=== PATIENT | male | born 1940 | race Caucasian/White ===

== ENCOUNTER 2020-01-20 16:33 | Outpatient (CLI) | payer MEDICARE, SELFPAY ==
[2020-01-20 17:08] LABS: Estimated Glomerular Filt Rate 49
== END 2020-01-20 16:34 | disposition home or self-care (01) ==
PROVIDERS: PCP Family Medicine; Visit Provider Specialist
DX: I70.1 Atherosclerosis of renal artery (principal)
CPT/HCPCS: 36415; 82565

== ENCOUNTER 2020-07-01 12:11 | Outpatient (CLI) | payer MEDICARE, SELFPAY ==
--- NOTE | ~2020-07-01 | US_ITS ---
US venous doppler LE RT DATE: 07/01/2020 12:46 INDICATION: Right leg pain TECHNIQUE: Real-time and color flow imaging and Doppler analysis of the veins of the right lower extr emity COMPARISON: 06/02/2017 venous duplex examination of both lower extremities FINDINGS: There is spontaneous and phasic flow and normal augmentation and color flow signal and norm al compression of the deep veins of the right leg IMPRESSION: No evidence of deep venous thrombosis of right leg Reviewed, dictated and finalized at [facility]. Reviewed, dictated and finalized at location A.
== END 2020-07-01 12:12 | disposition home or self-care (01) ==
PROVIDERS: PCP Family Medicine; Visit Provider Family Medicine
DX: M79.604 Pain in right leg (principal); M79.89 Other specified soft tissue disorders
CPT/HCPCS: 93971

== ENCOUNTER 2020-07-20 14:23 | Outpatient (CLI) | payer MEDICARE, SELFPAY ==
[2020-07-20 14:55] LABS: Basophils Absolute Auto 0.1 K/mm3 (0.0-0.1); Basophils Percent Auto 0.9 % (0.2-1.2); Eosinophils Absolute Auto 0.2 K/mm3 (0-0.3); Eosinophils Percent Auto 2.1 % (0-4.4); Hematocrit 44.7 % (42.0-52.0); Hemoglobin 14.8 g/dL (14.0-18.0); Immature Granulocyte Absolute 0.11 K/mm3 (0.00-0.031); Immature Granulocyte Percent A 1.3 % (0-0.5); Lymphocytes Absolute Auto 2.62 K/mm3 (0.9-3.2); Lymphocytes Percent Auto 30.1 % (18.3-44.2); Mean Corpuscular HGB Conc 33.1 g/dl (32-36); Mean Corpuscular Hemoglobin 30.1 pg (26-34); Mean Platelet Volume 10.7 fl (7.4-10.4); Monocytes Absolute Auto 0.8 K/mm3 (0.1-0.6); Monocytes Percent Auto 9.6 % (2.6-8.5); Neutrophils Absolute Auto 4.9 K/mm3 (1.3-6.7); Platelet Count Result 283 k/mm3 (150-375); Red Blood Count 4.91 M/mm3 (4.6-6.20); Red Cell Distribution Width 13.4 % (11.5-14.5); White Blood Count 8.7 K/mm3 (4.5-10.0)
== END 2020-07-20 14:24 | disposition home or self-care (01) ==
PROVIDERS: PCP Family Medicine; Visit Provider Family Medicine
DX: L03.90 Cellulitis, unspecified (principal)
CPT/HCPCS: 36415; 85025

== ENCOUNTER 2021-03-01 11:57 | Outpatient (CLI) | payer MEDICARE, SELFPAY ==
[2021-03-01 12:27] LABS: Hematocrit 28.7 % (42.0-52.0); Mean Corpuscular HGB Conc 31.4 g/dl (32-36); Mean Corpuscular Hemoglobin 30.5 pg (26-34); Mean Corpuscular Volume 97.3 fl (80-100); Mean Platelet Volume 10.8 fl (7.4-10.4); Platelet Count Result 247 k/mm3 (150-375); Red Blood Count 2.95 M/mm3 (4.6-6.20); Red Cell Distribution Width 15.9 % (11.5-14.5)
[2021-03-01 12:37] LABS: Alanine Aminotransferase 14 U/L (4-50); Albumin Level 3.7 g/dL (3.5-5.1); Alkaline Phosphatase 56 U/L (38-126); Anion Gap 6 mmol/L (8-16); Aspartate Amino Transferase 22 U/L (17-59); Blood Urea Nitrogen 34 mg/dL (9-20); Calcium 9.4 mg/dL (8.4-10.2); Carbon Dioxide 27 mmol/L (22-30); Chloride 107 mmol/L (98-107); Estimated Glomerular Filt Rate 49; Glucose 124 mg/dL (75-110); Potassium 4.4 mmol/L (3.4-5.0); Sodium 140 mmol/L (137-145)
== END 2021-03-01 11:58 | disposition home or self-care (01) ==
PROVIDERS: PCP Family Medicine; Visit Provider Physician Assistant
DX: K92.1 Melena (principal); R53.1 Weakness
CPT/HCPCS: 36415; 80053; 85027

== ENCOUNTER 2021-03-01 13:22 | Observation (INO) | payer MEDICARE, SELFPAY ==
[2021-03-01] VITALS (8 sets, daily range): BP systolic 135–180; BP diastolic 39–108; PULSE 50–70; RESP 14–20; TEMP 35.9–36.4; O2SAT 96–100; BMI 30.9; BMI 30.8
--- NOTE | ~2021-03-01 | XR_ITS ---
EXAMINATION: XR chest 2V DATE: 03/01/2021 16:39 INDICATION: Anemia TECHNIQUE: PA and lateral views of the chest are obtained. COMPARISON: 06/01/2017 FINDINGS: The lungs are free of acute opacities. There is no pleural effusion or pneumothorax. The ca rdiomediastinal silhouette is normal. There is moderate thoracic spondylosis. There are surgical clip s in the left neck. IMPRESSION: 1. No acute cardiopulmonary abnormality. Reviewed, dictated and finalized at location [facility].
--- NOTE | ~2021-03-01 | US_ITS ---
EXAMINATION: US venous doppler [facility] DATE: 03/03/2021 09:12 INDICATION: Bilateral lower limb swelling TECHNIQUE: Grayscale ultrasound images without and with compression and Doppler ultrasound images of the bilateral lower extremity veins were obtained. COMPARISON: 07/01/2020 FINDINGS: The visualized portions of right common femoral vein, profunda (deep) femoral vein, femoral vein, pop liteal vein, posterior tibial veins, peroneal veins, gastrocnemius vein and greater saphenous vein ou tflow remain patent. The visualized portions of left common femoral vein, profunda femoral vein, femoral vein, popliteal v ein, posterior tibial veins, peroneal veins, gastrocnemius vein and greater saphenous vein outflow ar e patent. IMPRESSION: 1. No deep venous thrombosis in either lower limb. Reviewed, dictated and finalized at location A.
[2021-03-01 14:10] LABS: Basophils Absolute Auto 0.1 K/mm3 (0.0-0.1); Basophils Percent Auto 0.7 % (0.2-1.2); Eosinophils Absolute Auto 0.2 K/mm3 (0-0.3); Eosinophils Percent Auto 2.4 % (0-4.4); Hematocrit 28.8 % (42.0-52.0); Hemoglobin 9.2 g/dL (14.0-18.0); Immature Granulocyte Absolute 0.05 K/mm3 (0.00-0.031); Immature Granulocyte Percent A 0.6 % (0-0.5); Lymphocytes Absolute Auto 2.59 K/mm3 (0.9-3.2); Lymphocytes Percent Auto 29.6 % (18.3-44.2); Mean Corpuscular HGB Conc 31.9 g/dl (32-36); Mean Corpuscular Hemoglobin 30.6 pg (26-34); Mean Corpuscular Volume 95.7 fl (80-100); Mean Platelet Volume 11.5 fl (7.4-10.4); Monocytes Absolute Auto 0.7 K/mm3 (0.1-0.6); Monocytes Percent Auto 7.7 % (2.6-8.5); Neutrophils Absolute Auto 5.2 K/mm3 (1.3-6.7); Platelet Count Result 260 k/mm3 (150-375); Red Blood Count 3.01 M/mm3 (4.6-6.20); Red Cell Distribution Width 15.8 % (11.5-14.5); White Blood Count 8.7 K/mm3 (4.5-10.0)
[2021-03-01 14:21] LABS: Alanine Aminotransferase 15 U/L (4-50); Albumin Level 3.8 g/dL (3.5-5.1); Alkaline Phosphatase 57 U/L (38-126); Anion Gap 8 mmol/L (8-16); Aspartate Amino Transferase 23 U/L (17-59); Bilirubin,Total 1.1 mg/dL (0.2-1.3); Blood Urea Nitrogen 32 mg/dL (9-20); Calcium 9.5 mg/dL (8.4-10.2); Carbon Dioxide 26 mmol/L (22-30); Chloride 107 mmol/L (98-107); Estimated CRCL calculation 37 ml/min; Estimated Glomerular Filt Rate 45; Glucose 119 mg/dL (75-110); Potassium 4.3 mmol/L (3.4-5.0); Sodium 141 mmol/L (137-145)
[2021-03-01 14:30] LABS: INR 1.5; Prothrombin Time 18.7 Seconds (11.1-14.7)
[2021-03-01 14:31] LABS: Partial Thromboplastin Time 35.9 SECONDS (22.3-36.8)
--- NOTE | 2021-03-01 16:23 | ECG_ITS ---
Measurements Intervals [place] Rate: 52 P: HI: 0 QRS: -30 QRSD: 93 T: 89 QT: 412 QTc: 384 Interpretive Statements SINUS BRADYCARDIA BORDERLINE AV CONDUCTION DELAY CANNOT RULE OUT SEPTAL INFARCT, AGE INDETERMINATE BORDERLINE ST-T WAVE ABNORMALITY- LAT/HIGH LAT LEADS ABNORMAL ECG Electronically Signed On 03-01-2021 17:27:01 CDT by Edaurdo Haywood D.O.
[2021-03-01] MEDS: PANTOPRAZOLE SODIUM IV 40 MG VIAL IV PUSH (16:24)
--- NOTE | 2021-03-01 16:27 | ED.RECABL ---
HPI - Recheck/Abnormal Lab/Rx General Chief Complaint: Recheck/Abnormal Lab/Rx Stated Complaint: Low H&H Time Seen by Provider: 03/01/21 15:29 Source: patient and RN notes reviewed Mode of arrival: ambulatory Limitations: no limitations History of Present Illness HPI narrative: This is a 80 year old male with history of CAD s/p stent, colon CA who presents for evaluation of a low hemoglobin. Patient was evaluated by his primary care physician today. He went to see his PCP for increased bilateral leg swelling and weakness. He states when he gets up to walk he feels like his legs given out. He also reports black stools for the past 2 weeks. He takes aspirin 81 mg and plavix for history of heart disease with stents. He was started on Xarelto 2 weeks ago for atrial fibrillation. He was also given IVF for heat stoke 2 weeks ago. Patient denies chest pain or sob. Related Data Home Medications Medication Instructions Recorded Confirmed clonidine HCl 0.2 mg tablet 0.2 mg PO DAILY tablet 09/17/19 03/01/21 aspirin 81 mg tablet,delayed 81 mg PO DAILY 10/16/19 03/01/21 release nebivolol 20 mg tablet 10 mg PO DAILY tablet 06/09/20 03/01/21 rivaroxaban 20 mg tablet 20 mg PO DAILY 02/24/21 03/01/21 Allergies Allergy/AdvReac Type Severity Reaction Status Date / Time No Known Allergies Allergy Verified 03/01/21 18:41 Review of Systems Review of Systems: All systems reviewed & are unremarkable except as noted in HPI and below PMFSH Past Medical History Medical History (Updated 03/01/21 @ 21:53 by Carine Hamilton MD) Carotid artery stenosis CKD (chronic kidney disease) stage 3, GFR 30-59 ml/min GERD (gastroesophageal reflux disease) History of colon cancer History of colorectal cancer History of high cholesterol HTN (hypertension) Surgical History Surgical History (Updated 03/01/21 @ 21:49 by Carine Hamilton MD) History of colon surgery Family History Family History Mother Cerebrovascular accident Family history of coronary artery disease Sibling Family history of coronary artery disease Other Hypertension Other Diabetes mellitus Other Family history of cardiovascular disease Social History Social History (Updated 03/01/21 @ 10:58 by Lavinia Leonard Social History: Smoking packs per day: 2 Smoking cigarettes per day: 40.0 Years smoked: 53 Smoking pack-years: 106.00 Smoking status: Former smoker Tobacco type: cigarettes Second hand tobacco smoke exposure: No Smoking end date: 09/04/00 Alcohol intake: never Substance use: never Substance use type: does not use Gender identity (if verbalized by the patient): Male Spiritual care concerns: No Exam Const: General: no acute distress and alert Orientation/consciousness: patient oriented x3 Eyes: EOM: EOMs intact bilaterally Resp: Effort & Inspection: normal respiratory effort and no retractions Auscultation: clear to auscultation bilaterally Cardio: Rate: regular rate Rhythm: regular rhythm Heart sounds: no murmurs GI: GI Palp: Yes Soft to palpation, No Tenderness to palpation present (GI) and No Guarding due to palpation present (GI) Auscultation: normal bowel sounds Other: guaic positive melanotic stool Skin: General skin exam: normal color Rashes: no rashes Neuro: General: patient oriented x3 and moves all extremities Extrem: General: edema bilateral (leg) Course Reevaluation(s) Reevaluation #1: I Discussed with patient plan to admit for evaluation of GI bleeding. He has been accepted by hospitalist service. Date: 03/01/21 Time: 17:00 Consultations Consultation #1: I Discussed case with DR. Messina who agrees to consult. He recommends starting patient on GOlytely 4 L and npo after midnight. He also request patient be consented for colonoscopy/EGD tomorrow. Date: 03/01/21 Time: 16:27 Vital Signs Vital signs: Vital
--- NOTE | 2021-03-01 16:29 | PC.NURSE ---
Called laboratory and added on labs per Dr Hamilton order.
--- NOTE | 2021-03-01 16:32 | PC.NURSE ---
Pt to XRAY via stretcher.
[2021-03-01 16:57] LABS: NT Pro B Type Natriuretic Pept 357 pg/mL (5-100); Troponin I < 0.012 ng/mL (0.000-0.034)
--- NOTE | 2021-03-01 18:22 | ADMGEN ---
This patient, Enzo Pérez, was admitted to 3 Med Surg Room 312-01 @ 1820. Patient/family oriented to hospital policies and general routines including ID bracelet, bed and alarms, visiting hours, pain management, procedures, bathroom and other care routines, personal items, smoking policy, room service/diet, and visiting hours. Information on how to activate the Rapid Response Team has been discussed. Patient/Family are encouraged to report perceived risks to care and to ask questions if they do not understand what they are told or what they should do.
[2021-03-01] MEDS: PEG (High)/E-LYTE SOLN 4,000 ML BTL 4000 ML PO (18:29)
[2021-03-01 19:09] LABS: Hematocrit 30.7 % (42.0-52.0); Hemoglobin 9.7 g/dL (14.0-18.0)
--- NOTE | 2021-03-01 23:11 | PM.IMHP ---
H&P: HPI History of Present Illness Date/Time: 03/01/21 23:11 Chief Complaint: Dark stools Narrative: This is a 80-year-old male WITH PAST MEDICAL HISTORY SIGNIFICANT FOR HYPERTENSION, DYSLIPIDEMIA, CORONARY ARTERY DISEASE STATUS POST STENTING: PERIPHERAL NEUROPATHY: TYPE 2 DIABETES MELLITUS, ATRIAL FLUTTER STARTED ON RIVAROXABAN. PATIENT PRESENTED TO THE EMERGENCY ROOM AFTER HE WAS SEEN AT THE PRIMARY CARE PHYSICIAN'S OFFICE WHERE HE WAS SEEING DUE TO BILATERAL LOWER EXTREMITY EDEMA. BUT PATIENT STATED THAT HE HAS BEEN HAVING DARK STOOLS EVER SINCE HE WAS STARTED ON THE RIVAROXABAN AND THEN HE WAS SENT TO THE EMERGENCY ROOM. PRELIMINARY WORKUP IS ESSENTIALLY NONREVEALING. PATIENT DENIES ANY SHORTNESS OF BREATH COUGH SPUTUM PRODUCTION NAUSEA VOMITING HEMATEMESIS HEMOPTYSIS BRIGHT RED BLOOD PER RECTUM OR WEIGHT LOSS NO PND NO ORTHOPNEA NO ABDOMINAL. Review of Systems Review of Systems: Narrative: BILATERAL LOWER EXTREMITY SWELLING AND DARK STOOL Constitutional: Constitutional: Denies chills, Denies fatigue, Denies fever(s), Denies malaise, Denies poor appetite, Denies weakness and Denies weight loss Eyes: Eyes: Denies change in vision ENT: Denies nasal congestion, Denies nasal discharge and Denies nasal obstruction Cardiovascular: Cardiovascular: Denies chest pain, Denies irregular heart rhythm, Denies lightheadedness, Denies radiating jaw, neck or arm pain, Denies palpitations, Denies dyspnea and Denies paroxysmal nocturnal dyspnea Respiratory: Respiratory: Denies cough Gastrointestinal: Gastrointestinal: Reports melena, Denies diarrhea, Denies nausea and Denies vomiting Genitourinary: Genitourinary: Reports no additional male genitourinary complaints Musculoskeletal: Musculoskeletal: Reports no additional musculoskeletal complaints Integumentary/Breasts: Skin/Breast: Reports system reviewed and no additional complaints, except as docu Neurologic: Reports system reviewed and no additional complaints, except as documented and Denies focal weakness Psychiatric: Psychiatric: Reports no additional psychiatric complaints Endocrine: Endocrine: Reports no additional endocrine complaints Hematologic/Lymphatic: Hematologic/Lymphatic: Reports no additional hematologic/lymphatic complaints Allergic/Immunologic: Allergic/Immunologic: Reports no additional allergic/immunologic complaints [facility] Past Medical History Medical History (Updated 03/01/21 @ 23:33 by Lotus Mcclelland MD) Carotid artery stenosis CKD (chronic kidney disease) stage 3, GFR 30-59 ml/min GERD (gastroesophageal reflux disease) History of colon cancer History of colorectal cancer History of high cholesterol HTN (hypertension) Surgical History Surgical History (Updated 03/01/21 @ 21:49 by Carine Hamilton MD) History of colon surgery Family History Family History Mother Cerebrovascular accident Family history of coronary artery disease Sibling Family history of coronary artery disease Other Hypertension Other Diabetes mellitus Other Family history of cardiovascular disease Social History Social History (Updated 03/01/21 @ 10:58 by Lavinia Hawkins) Social History: Smoking packs per day: 2 Smoking cigarettes per day: 40.0 Years smoked: 53 Smoking pack-years: 106.00 Smoking status: Former smoker Tobacco type: cigarettes Second hand tobacco smoke exposure: No Smoking end date: 09/04/00 Alcohol intake: never Substance use: never Substance use type: does not use Gender identity (if verbalized by the patient): Male Spiritual care concerns: No Meds Home Medications and Allergies Home Medications Medication Instructions Recorded Confirmed Type clonidine HCl 0.2 mg tablet 0.2 mg PO DAILY tablet 09/17/19 03/01/21 History aspirin 81 mg tablet,delayed 81 mg PO DAILY 10/16/19 03/01/21 History release metformin 500 mg tablet,extended 50
[2021-03-01 23:20] LABS: Hematocrit 30.4 % (42.0-52.0); Hemoglobin 9.5 g/dL (14.0-18.0)
[2021-03-02] VITALS (11 sets, daily range): BP systolic 96–200; BP diastolic 36–74; PULSE 53–81; RESP 16–20; TEMP 36.1–36.9; O2SAT 92–99
[2021-03-02] MEDS: hydrALAZINE HCL 20 MG/ML VIAL 10 MG IV PUSH (04:24)
[2021-03-02 06:27] LABS: Hematocrit 30.9 % (42.0-52.0); Hemoglobin 9.9 g/dL (14.0-18.0)
[2021-03-02] MEDS: NEBIVOLOL HCL 5 MG TABLET 10 MG PO (08:53)
[2021-03-02] MEDS: IRBESARTAN 150 MG TABLET PO (08:55)
[2021-03-02] MEDS: amLODIPine BESYLATE 5 MG TABLET 10 MG PO (08:55)
[2021-03-02] MEDS: hydroCHLOROthiazide 12.5 MG CAPSULE PO (08:56)
[2021-03-02] MEDS: PANTOPRAZOLE SODIUM IV 40 MG VIAL IV PUSH (08:58)
--- NOTE | 2021-03-02 09:35 | WPDGICN ---
Assessment and Plan Assessment and plan (1) GI bleed: Code(s): K92.2 - Gastrointestinal hemorrhage, unspecified Status: Acute Assessment and Plan: Patient with GI bleeding dark melenic stools suggest upper GI blood loss. However patient does have a history of colon cancer with no recent follow-up. Plan is to check both EGD and colonoscopy to assess for recent GI blood loss. Patient hemoglobin will be monitored and transfused if necessary. (2) Atrial fibrillation: Code(s): I48.91 - Unspecified atrial fibrillation Status: Acute (3) Anticoagulated: Code(s): Z79.01 - longterm (current) use of anticoagulants Status: Acute Assessment and Plan: Patient with recent start of Xarelto anticoagulation because of atrial fibrillation. This will need to be held until is certainly safe to continue. With recent GI bleeding raises this concern. (4) History of colon cancer: Code(s): Z85.038 - Personal history of other malignant neoplasm of large intestine Status: Acute Assessment and Plan: Patient has a history of colon cancer and subsequent colon polyps on previous colonoscopies. He has had no recent follow-up. Follow-up colonoscopy at this time because of GI bleeding but also because of his history of colon cancer. GI Consult Note Consult date/time: 03/02/21 09:35 HPI: Enzo Pérez is a 80 year old male Seen in evaluation at the request of the emergency room. Patient has a history of atherosclerotic heart disease for which she has had stents. He has been treated for diabetes, atrial flutter recently on Xarelto. Patient presented to his primary care office yesterday because of pedal edema. He was found to have a low hemoglobin of 9. Previously had been 14. Over the last 4-5 days he has noticed blood in his stools. These are described as dark in nature. He denies any specific abdominal pain. His past history is significant for cardiac stents and atrial fibrillation for which she takes aspirin, Plavix and now Xarelto. He has been on Xarelto for approximately 1-2 weeks. Patient's distant medical history is significant for colon cancer resected 5 years ago. Patient denies any specific follow-up in the intervening time. patient's family history is noncontributory. As stated patient denies abdominal pain. Review of Systems Review of Systems: All systems reviewed & are unremarkable except as noted in HPI and below PMFSH Past Medical History Medical History (Updated 03/02/21 @ 09:38 by Mendoza Messina MD) Carotid artery stenosis CKD (chronic kidney disease) stage 3, GFR 30-59 ml/min GERD (gastroesophageal reflux disease) History of colon cancer History of colorectal cancer History of high cholesterol HTN (hypertension) Surgical History Surgical History (Updated 03/01/21 @ 21:49 by Carine Hamilton MD) History of colon surgery Family History Family History Mother Cerebrovascular accident Family history of coronary artery disease Sibling Family history of coronary artery disease Other Hypertension Other Diabetes mellitus Other Family history of cardiovascular disease Social History Social History (Updated 03/01/21 @ 10:58 by Lavinia Hawkins) Social History: Smoking packs per day: 2 Smoking cigarettes per day: 40.0 Years smoked: 53 Smoking pack-years: 106.00 Smoking status: Former smoker Tobacco type: cigarettes Second hand tobacco smoke exposure: No Smoking end date: 09/04/00 Alcohol intake: never Substance use: never Substance use type: does not use Gender identity (if verbalized by the patient): Male Spiritual care concerns: No Meds Home Medications and Allergies Home Medications Medication Instructions Recorded Confirmed Type clonidine HCl 0.2 mg tablet 0.2 mg PO DAILY tablet 09/17/19 03/01/21 History aspirin 81 mg tablet,
[2021-03-02 10:03] LABS: Glucose Point of Care 141 mg/dl (65-105)
[2021-03-02] MEDS: LACTATED RINGERS 1,000 ML 150 ML IV CONT (10:12)
--- NOTE | 2021-03-02 10:37 | WPDANESEPPF ---
Anes - Initial Pre Proc Eval Procedure: Operation Date: 03/02/21 10:30 Proposed Procedures p Esophagogastroduodenoscopy & Colonoscopy - Mendoza Messina MD Date/Time: 03/02/21 10:37 Surgeon: DANNI Bhandari Pre Op Diagnosis: upper GI bleeding/ anemia Patient Data Age: 80 Gender: M Height: 1.66 m Weight: 85.4 kg Last Vital Signs Temp 98.4 F 03/02/21 10:10 Pulse 81 03/02/21 10:10 Resp 20 03/02/21 10:10 BP 188/57 H 03/02/21 10:10 Pulse Ox 99 03/02/21 10:10 Allergies Allergy/AdvReac Type Severity Reaction Status Date / Time No Known Allergies Allergy Verified 03/02/21 10:04 Home Medications Medication Instructions Recorded Confirmed Type clonidine HCl 0.2 mg tablet 0.2 mg PO DAILY tablet 09/17/19 03/01/21 History aspirin 81 mg tablet,delayed 81 mg PO DAILY 10/16/19 03/01/21 History release metformin 500 mg tablet,extended 500 mg PO DAILY #90 tablet 11/11/19 03/01/21 Rx release 24 hr nebivolol 20 mg tablet 10 mg PO DAILY tablet 06/09/20 03/01/21 History blood sugar diagnostic #100 ea 09/14/20 03/01/21 Rx blood-glucose meter #1 ea 09/14/20 03/01/21 Rx lancets #200 ea 09/14/20 03/01/21 Rx amlodipine 10 mg tablet See Rx Instructions .ROUTE 09/28/20 03/01/21 Rx .COMPLEX #90 tablet pantoprazole 40 mg tablet,delayed 40 mg PO QAM #90 tablet 09/28/20 03/01/21 Rx release irbesartan 150 mg tablet 150 mg PO DAILY #90 tablet 10/05/20 03/01/21 Rx atorvastatin 40 mg tablet 40 mg PO DAILY #90 tablet 11/09/20 03/01/21 Rx tamsulosin 0.4 mg capsule 0.4 mg PO DAILY #90 cap 12/07/20 03/01/21 Rx hydrochlorothiazide 12.5 mg capsule See Rx Instructions .ROUTE 01/20/21 03/01/21 Rx .COMPLEX #90 cap gabapentin 300 mg capsule 300 mg PO TID #90 cap 01/29/21 03/01/21 Rx lorazepam 1 mg tablet 0.5 mg PO BID PRN #60 tablet 02/16/21 03/01/21 Rx rivaroxaban 20 mg tablet 20 mg PO DAILY 02/24/21 03/01/21 History Laboratory Tests 03/01/21 03/01/21 03/01/21 13:55 13:57 13:57 WBC 8.7 K/mm3 K/mm3 (4.5-10.0) RBC 3.01 M/mm3 L M/mm3 (4.6-6.20) Hgb 9.2 g/dL L g/dL (14.0-18.0) Hct 28.8 % L % (42.0-52.0) MCV 95.7 fl fl (80-100) MCH 30.6 pg pg (26-34) MCHC 31.9 g/dl L g/dl (32-36) RDW 15.8 % H % (11.5-14.5) Plt Count 260 k/mm3 k/mm3 (150-375) MPV 11.5 fl H fl (7.4-10.4) Immature Gran % (Auto) 0.6 % H % (0-0.5) Neut % (Auto) 59.0 % % (45.5-73.1) Lymph % (Auto) 29.6 % % (18.3-44.2) [place] % (Auto) 7.7 % % (2.6-8.5) Eos % (Auto) 2.4 % % (0-4.4) Baso % (Auto) 0.7 % % (0.2-1.2) Lymph # (Auto) 2.59 K/mm3 K/mm3 (0.9-3.2) [place] # (Auto) 0.7 K/mm3 H K/mm3 (0.1-0.6) Eos # (Auto) 0.2 K/mm3 K/mm3 (0-0.3) Baso # (Auto) 0.1 K/mm3 K/mm3 (0.0-0.1) Abs Immat Gran (auto) 0.05 K/mm3 H K/mm3 (0.00-0.031) Absolute Neuts (auto) 5.2 K/mm3 K/mm3 (1.3-6.7) Absolute Nucleated RBC 0.0 K/mm3 K/mm3 (0.0-0.012) Nucleated RBC % 0.0 % % (0.0-0.2) PT 18.7 Seconds H Seconds (11.1-14.7) INR 1.5 APTT 35.9 SECONDS SECONDS (22.3-36.8) Sodium Potassium Chloride Carbon Dioxide Anion Gap BUN Creatinine Estim Creat Clear Calc Estimated GFR Glucose POC Capillary Glucose Calcium Total Bilirubin AST ALT Alkaline Phosphatase Troponin I < 0.012 ng/mL ng/mL (0.000-0.034) NT-Pro-B Natriuret Pep 357 pg/mL H pg/mL (5-100) Total Protein Albumin Blood Type Antibody Screen 03/01/21 03/01/21 03/01/21 13:57 13:57 18:52 WBC RBC Hgb 9.7 g/d
[2021-03-02] MEDS: BENZOCAINE (*SP) 60 ML SPRAY CAN (HURRICAINE) 1 SPRAY MUCOUS MEM (10:55)
[2021-03-02] MEDS: SIMETHICONE ORAL SUSPENSION 20 MG/0.3 ML 30 ML BOTTLE 0.6 ML PO (11:13)
[2021-03-02] MEDS: TAMSULOSIN HCL 0.4 MG CAPSULE PO (11:51)
[2021-03-02] MEDS: GABAPENTIN 300 MG CAPSULE PO ×2 (12:55→16:46)
[2021-03-02] MEDS: ATORVASTATIN 40 MG TABLET PO (12:56)
[2021-03-02 13:16] LABS: Hematocrit 31.7 % (42.0-52.0); Hemoglobin 10.2 g/dL (14.0-18.0)
[2021-03-02 17:57] LABS: Glucose Point of Care 96 mg/dl (65-105)
--- NOTE | 2021-03-02 18:09 | P.PNIM_ITS ---
Progress Note: A&P Assessment and Plan (1) Acute upper gastrointestinal bleeding: Code(s): K92.2 - Gastrointestinal hemorrhage, unspecified Status: Acute Assessment and Plan: * Patient described dark melanotic stools after starting Xarelto for his A fib last week. Hgb in 9s compared to 14 last year. 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 Start pantoprazole once daily. Colonoscopy mostly unremarkable with 1 polyp excised; history of right colectomy due to colon cancer in the past. * Hold xarelto 1 to 2 weeks per GI recommendations. * Monitor H&H overnight, advance diet. Anticipate discharge tomorrow if Hgb stable. (2) Gastro-esophageal reflux disease without esophagitis: Code(s): K21.9 - Gastro-esophageal reflux disease without esophagitis Status: Chronic Assessment and Plan: * PPI. (3) Atrial flutter: Code(s): I48.92 - Unspecified atrial flutter Status: Chronic Assessment and Plan: * In sinus rhythm now. Continue bystolic. Xarelto held due to active GI bleedi ng. (4) HTN (hypertension): Code(s): I10 - Essential (primary) hypertension Status: Chronic Assessment and Plan: * BPs significantly elevated this morning since his home medications were withheld. BP much improved after resuming his medications. * Question if amlodipine is contributing to leg swelling? Try holding tomorrow depending on his BP. He is on several anti-hypertensives, continue them to include HCTZ, irbesartan, clonidine. * Monitor BP and adjust treatment as needed. (5) Type 2 diabetes mellitus with other circulatory complications: Code(s): E11.59 - Type 2 diabetes mellitus with other circulatory complications Status: Chronic Assessment and Plan: * Home metformin held. Continue to monitor with accu-cheks and adjust treatment as needed, cover with SSI. (6) CAD (coronary artery disease): Code(s): I25.10 - Atherosclerotic heart disease of [place] coronary artery without angina pectoris Status: Chronic Assessment and Plan: * Stable, no chest pain. ASA held due to GI bleeding. * Taken off Plavix by cardiology last week in light of starting Xarelto. (7) CKD (chronic kidney disease) stage 3, GFR 30-59 ml/min: Code(s): N18.3 - Chronic kidney disease, stage 3 (moderate) Status: Chronic Assessment and Plan: * Renal function appear near his baseline. Euvolemic. Monitor renal function and urine output. (8) LOPEZ (obstructive sleep apnea): Code(s): G47.33 - Obstructive sleep apnea (adult) (pediatric) Status: Chronic Assessment and Plan: * Patient does not use CPAP. (9) Leg swelling: Code(s): M79.89 - Other specified soft tissue disorders Status: Acute Assessment and Plan: * Patient noted NADIYA leg swelling over the last few days. He did recently receive IV fluids during an ED visit for treatment of heat exhaustion. * Ordered LE dopplers. DVT less likely since he has been on anticoagulation. * Encouraged him to elevate his legs. Swelling improved today. Subjective Date/time seen: 03/02/21 1630 Interval history: Mr. Pérez is a very pleasant 80yo M
--- NOTE | 2021-03-02 18:09 | PM.IMPN ---
Progress Note: A&P Assessment and Plan (1) Acute upper gastrointestinal bleeding: Code(s): K92.2 - Gastrointestinal hemorrhage, unspecified Status: Acute Assessment and Plan: Patient described dark melanotic stools after starting Xarelto for his A fib last week. Hgb in 9s compared to 14 last year. One actively bleeding AVM identified in the duodenum, cauterized. Start pantoprazole once daily. Colonoscopy mostly unremarkable with 1 polyp excised; history of right colectomy due to colon cancer in the past. Hold xarelto 1 to 2 weeks per GI recommendations. Monitor H&H overnight, advance diet. Anticipate discharge tomorrow if Hgb stable. (2) Gastro-esophageal reflux disease without esophagitis: Code(s): K21.9 - Gastro-esophageal reflux disease without esophagitis Status: Chronic Assessment and Plan: PPI. (3) Atrial flutter: Code(s): I48.92 - Unspecified atrial flutter Status: Chronic Assessment and Plan: In sinus rhythm now. Continue bystolic. Xarelto held due to active GI bleeding. (4) HTN (hypertension): Code(s): I10 - Essential (primary) hypertension Status: Chronic Assessment and Plan: BPs significantly elevated this morning since his home medications were withheld. BP much improved after resuming his medications. Question if amlodipine is contributing to leg swelling? Try holding tomorrow depending on his BP. He is on several anti-hypertensives, continue them to include HCTZ, irbesartan, clonidine. Monitor BP and adjust treatment as needed. 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 Continue to monitor with accu-cheks and adjust treatment as needed, cover with SSI. (6) CAD (coronary artery disease): Code(s): I25.10 - Atherosclerotic heart disease of [place] coronary artery without angina pectoris Status: Chronic Assessment and Plan: Stable, no chest pain. ASA held due to GI bleeding. Taken off Plavix by cardiology last week in light of starting Xarelto. (7) CKD (chronic kidney disease) stage 3, GFR 30-59 ml/min: Code(s): N18.3 - Chronic kidney disease, stage 3 (moderate) Status: Chronic Assessment and Plan: Renal function appear near his baseline. Euvolemic. Monitor renal function and urine output. (8) LOPEZ (obstructive sleep apnea): Code(s): G47.33 - Obstructive sleep apnea (adult) (pediatric) Status: Chronic Assessment and Plan: Patient does not use CPAP. (9) Leg swelling: Code(s): M79.89 - Other specified soft tissue disorders Status: Acute Assessment and Plan: Patient noted NADIYA leg swelling over the last few days. He did recently receive IV fluids during an ED visit for treatment of heat exhaustion. Ordered LE dopplers. DVT less likely since he has been on anticoagulation. Encouraged him to elevate his legs. Swelling improved today. Subjective Date/time seen: 03/02/21 1630 Interval history: Mr. Pérez is a very pleasant 80yo M admitted with GI bleed. He presented to his PCP office for NADIYA lower leg swelling, noted he had been having dark stools since starting Xarelto last week, noted to have a drop in Hgb and was sent to ED. He reports his leg swelling started a few days ago and has been causing some numbness/tingling to NADIYA feet, making them feel asleep when he stands up. He says his leg swelling is improv
[2021-03-02 21:36] LABS: Glucose Point of Care 135 mg/dl (65-105)
[2021-03-03 05:33] VITALS: BP 173/58; PULSE 69; RESP 18; TEMP 36.4; O2SAT 94
[2021-03-03 06:18] LABS: Hematocrit 30.8 % (42.0-52.0); Hemoglobin 9.7 g/dL (14.0-18.0)
[2021-03-03 06:30] LABS: Anion Gap 10 mmol/L (8-16); Blood Urea Nitrogen 18 mg/dL (9-20); Calcium 9.2 mg/dL (8.4-10.2); Carbon Dioxide 27 mmol/L (22-30); Chloride 107 mmol/L (98-107); Estimated CRCL calculation 43 ml/min; Estimated Glomerular Filt Rate 53; Glucose 119 mg/dL (75-110); Potassium 3.9 mmol/L (3.4-5.0); Sodium 144 mmol/L (137-145)
--- NOTE | 2021-03-03 07:40 | WPDANESPN ---
Anes - Prog Note Post-Op Date/Time: 03/03/21 07:40 Cardiovascular status: normal Respiratory status: normal Airway patency: baseline Mental status: baseline Post-Op hydration status: normal Vital Signs: Last Vital Signs Temp 36.4 C L 03/03/21 05:33 Pulse 69 03/03/21 05:33 Resp 18 03/03/21 05:33 BP 173/58 H 03/03/21 05:33 Pulse Ox 94 03/03/21 05:33 Pain Score (VAS): 1 I/O: Intake & Output 03/02/21 03/02/21 03/03/21 15:59 23:59 07:59 Intake Total 320 390 250 Balance 320 390 250 Laboratory Tests 03/03/21 06:02 03/03/21 06:02 03/02/21 03/02/21 03/02/21 09:56 12:53 17:53 Hgb 10.2 L Hct 31.7 L Sodium Potassium Chloride Carbon Dioxide Anion Gap BUN Creatinine Estim Creat Clear Calc Estimated GFR Glucose POC Capillary Glucose 141 H 96 Hemoglobin A1c Calcium Magnesium 03/02/21 03/03/21 03/03/21 20:22 06:02 06:02 Hgb 9.7 L Hct 30.8 L Sodium 144 Potassium 3.9 Chloride 107 Carbon Dioxide 27 Anion Gap 10 BUN 18 D Creatinine 1.30 Estim Creat Clear Calc 43 Estimated GFR 53 L Glucose 119 H POC Capillary Glucose 135 H Hemoglobin A1c Calcium 9.2 Magnesium 2.0 03/03/21 06:02 Hgb Hct Sodium Potassium Chloride Carbon Dioxide Anion Gap BUN Creatinine Estim Creat Clear Calc Estimated GFR Glucose POC Capillary Glucose Hemoglobin A1c Pending Calcium Magnesium Post-procedural complaints: none Patient Feedback: Patient satisfied with anesthetic care.
[2021-03-03 08:18] LABS: Glucose Point of Care < 20 mg/dl (65-105)
[2021-03-03 08:18] LABS: Glucose Point of Care 136 mg/dl (65-105)
--- NOTE | 2021-03-03 08:41 | PM.DS ---
DS: Admitting Diagnosis Admitting Diagnosis Admitting Diagnosis: GI bleed DS: Discharge Diagnosis Discharge Diagnosis (1) Acute upper gastrointestinal bleeding: Code(s): K92.2 - Gastrointestinal hemorrhage, unspecified Status: Acute Assessment and Plan: Date of Admission 03/01/21 Date of Discharge 03/03/21 Mr. Pérez is a very pleasant 80yo M with history of coronary artery disease, carotid stenosis, paroxysmal atrial flutter, hypertension, non insulin dependent type 2 DM, chronic kidney disease who presented to the ED at the request of his PCP for evaluation of melanotic stool. He presented to PCP office day of arrival for evaluation of bilateral leg swelling and happened to mention he had noticed dark black color to his bowel movements after the last several days after being started on Xarelto last week for paroxysmal atrial flutter. PA at primary care ordered lab work that showed a marked decline in his hemoglobin compared to previous labs and suggested he come to ED. Hgb in 9s on arrival compared to 14 last year. He was evaluated by GI and underwent EGD/colonoscopy by Dr Messina 03/02/21. One actively bleeding AVM identified in the duodenum, cauterized. Start pantoprazole once daily. Colonoscopy mostly unremarkable with 1 polyp excised; history of right colectomy due to colon cancer in the past. His Xarelto is held. Dr Messina recommends holding Xarelto for several weeks. He is encouraged to follow up with his marketing research coordinator, Dr Garcia, as well. His diet was gradually advanced which he tolerated well and his Hgb remained stable, 9.7 day of discharge. His leg swelling is almost completely resolved and my have been related to IV fluids he was given during a recent ED visit at [facility] where he was treated for heat exhaustion. Venous dopplers show no evidence of DVT in either leg. He is encouraged to monitor for any more swelling and keep is legs elevated when sitting. He attributes to his recent difficulty ambulating to the leg swelling which was causing some mild numbness/tingling which is improved today. He is walking in the room without difficulty. He is feeling well and is hemodynamically stable for discharge with instructions to follow up with PCP, cardiology, GI. (2) Gastro-esophageal reflux disease without esophagitis: Code(s): K21.9 - Gastro-esophageal reflux disease without esophagitis Status: Chronic Assessment and Plan: PPI. (3) Atrial flutter: Code(s): I48.92 - Unspecified atrial flutter Status: Chronic Assessment and Plan: In sinus rhythm now. Continue bystolic. Xarelto held due to active GI bleeding. (4) HTN (hypertension): Code(s): I10 - Essential (primary) hypertension Status: Chronic Assessment and Plan: He is on several anti-hypertensives, continue them to include amlodipine, HCTZ, irbesartan, clonidine. Consider if amlodipine could be contributing to leg swelling if his leg swelling returns or persists. BPs elevated day prior to discharge since his meds were held/NPO. Blood pressures improved once his medications were resumed. (5) Type 2 diabetes mellitus with other circulatory complications: Code(s): E11.59 - Type 2 diabetes mellitus with other circulatory complications Status: Chronic Assessment and Plan: Stable, A1c 5.9%. His metformin was held but resumed at discharge. (6) CAD (coronary artery disease): Code(s): I25.10 - Atherosclerotic heart disease of [place] coronary artery without angina pectoris Status: Chronic Assessment and Plan: Stable, no chest pain. Taken off Plavix by cardiology last week in light of starting Xarelto. Follow up with Dr Garcia. (7)
--- NOTE | 2021-03-03 08:58 | WPDGIPROGNO ---
Progress Note: A&P Assessment and Plan (1) AVM (arteriovenous malformation): Code(s): Q27.30 - Arteriovenous malformation, site unspecified Status: Acute Assessment and Plan: Actively bleeding AVM in the duodenum was cauterized yesterday. No evidence for additional bleeding. There is the possibility of additional AVMs distal in the small bowel. Plan to monitor CBC after discharge. I would hold anticoagulation for several weeks. (2) Atrial fibrillation: Code(s): I48.91 - Unspecified atrial fibrillation Status: Acute Assessment and Plan: Anticoagulation on hold because of recent bleeding. Restart if absolutely necessary. There is a risk of bleeding if he has additional AVMs. (3) Anemia: Code(s): D64.9 - Anemia, unspecified Status: Acute Assessment and Plan: Blood loss anemia. Hemoglobin now stable. Suggest follow-up CBC after discharge. Hopefully patient can be discharged today. (4) History of colon cancer: Code(s): Z85.038 - Personal history of other malignant neoplasm of large intestine Status: Acute Assessment and Plan: Distant history of colon cancer. No evidence of polyps by endoscopy yesterday. Plan follow-up colonoscopy in 3-5 years. Subjective Date/time seen: 03/03/21 08:58 Patient comfortable today. No additional bleeding reported. Tolerating diet without difficulty. Anxious to go home. Review of Systems Review of Systems: All systems reviewed & are unremarkable except as noted in HPI and below Exam Narrative: Exam Narrative: Physical exam reveals patient be alert. Comfortable at rest. Vital signs stable. HEENT exam unremarkable. Patient is anicteric. Lungs are clear to auscultation and percussion. Heart is without murmur or extra sounds Irregularly irregular.. Abdomen is soft nontender. Objective Data Vital Signs Vital Signs: Vital Signs - 24 hr 03/02/21 10:10 03/02/21 11:27 03/02/21 11:37 Temperature 98.4 F Pulse Rate 81 53 L 55 L Respiratory Rate 20 16 16 Blood Pressure 188/57 H 96/53 L 121/36 L Pulse Oximetry 99 96 97 03/02/21 11:47 03/02/21 14:00 03/02/21 18:45 Temperature 97.8 F Pulse Rate 53 L 67 Respiratory Rate 17 20 Blood Pressure 141/46 H 158/55 H 175/54 H Pulse Oximetry 97 97 03/02/21 20:25 03/02/21 22:00 03/03/21 05:33 Temperature 97.0 F L 97.5 F L Pulse Rate 61 61 69 Respiratory Rate 18 18 18 Blood Pressure 153/50 H 173/58 H Pulse Oximetry 93 93 94 Intake/Output Intake/Output: Intake & Output 02/28/21 03/01/21 03/02/21 03/03/21 23:59 23:59 23:59 23:59 Intake Total 710 250 Balance 710 250 Meds/Results Medications: Active Medications Generic Name Dose Route Start Last Admin Trade Name Freq PRN Reason Stop Dose Admin Amlodipine Besylate 10 mg 03/02/21 09:00 03/02/21 08:55 Amlodipine Besylate 5 Mg Tablet PO 10 mg DAILY CHAPARRO Administration Atorvastatin Calcium 40 mg 03/02/21 09:00 03/02/21 12:56 Atorvastatin 40 Mg Tablet PO 40 mg DAILY CHAPARRO Administration Clonidine HCl 0.2 mg 03/02/21 09:00 Clonidine Hcl 0.2 Mg Tablet PO DAILY CHAPARRO Dextrose 12.5 gm 03/02/21 18:07 Dextrose 50% 25 Gm/50 Ml Syringe IV PUSH PRN PRN Hypoglycemia Protocol Gabapentin 300 mg 03/02/21 09:00 03/02/21 16:46 Gabapentin 300 Mg Capsule PO 300 mg TID CHAPARRO Administration Glucagon 1 mg 03/02/21 18:07 Glucagon For Inj 1 Mg Vial IM PRN PRN Hypoglycemia Protocol Glucose 15 gm 03/02/21 18:07 Glucose Oral Gel 15 Gm Of Glucse In 37.5 Gm Tube PO PRN PRN Hypoglycemia Protocol Hydralazine HCl 10 mg 03/02/21 03:49 03/02/21 04:24 Hydralazine Hcl 20 Mg/Ml Vial IV PUSH 10 mg Q8H PRN Administration Blood Pressure - High Hydrochlorothiazide 12.5 mg 03/02/21 09:00 03/02/21 08:56 Hydrochlorothiazide 12.5 Mg Capsule PO 12.5 mg DAILY CHAPARRO Administration Dextr
[2021-03-03] MEDS: GABAPENTIN 300 MG CAPSULE PO (09:19)
[2021-03-03] MEDS: PANTOPRAZOLE 40 MG TABLET PO (09:19)
[2021-03-03] MEDS: TAMSULOSIN HCL 0.4 MG CAPSULE PO (09:19)
[2021-03-03 09:20] VITALS: PULSE 80
[2021-03-03] MEDS: IRBESARTAN 150 MG TABLET PO (09:20)
[2021-03-03] MEDS: hydroCHLOROthiazide 12.5 MG CAPSULE PO (09:20)
[2021-03-03] MEDS: NEBIVOLOL HCL 5 MG TABLET 10 MG PO (09:20)
[2021-03-03] MEDS: ATORVASTATIN 40 MG TABLET PO (09:20)
[2021-03-03 10:11] VITALS: O2SAT 93
[2021-03-03 10:42] LABS: Hemoglobin A1C 5.9 % (<5.7)
[2021-03-03 12:18] LABS: Glucose Point of Care 108 mg/dl (65-105)
== END 2021-03-03 12:45 | disposition home or self-care (01) ==
LOC: ANHED 15:39 → ANH3MEDSUR 17:34
PROVIDERS: Emergency Medicine; Internal Medicine Gastroenterology; Physician Assistant; Admitting Provider Emergency Medicine; Emergency Provider General Practice; PCP Family Medicine; Visit Provider Internal Medicine
PROC: 0DJ08ZZ Inspection of Upper Intestinal Tract, Via Natural or Artificial Opening Endoscopic (ICD-10-PCS; CPT 43235; principal; 2021-03-02 10:30)
DX: K92.2 Gastrointestinal hemorrhage, unspecified (principal); Q27.33 Arteriovenous malformation of digestive system vessel; D12.5 Benign neoplasm of sigmoid colon; K92.1 Melena; K63.89 Other specified diseases of intestine; K21.9 Gastro-esophageal reflux disease without esophagitis; M79.89 Other specified soft tissue disorders; E78.5 Hyperlipidemia, unspecified; E11.42 Type 2 diabetes mellitus with diabetic polyneuropathy; E11.51 Type 2 diabetes mellitus with diabetic peripheral angiopathy without gangrene; E11.22 Type 2 diabetes mellitus with diabetic chronic kidney disease; G47.33 Obstructive sleep apnea (adult) (pediatric); I48.91 Unspecified atrial fibrillation; I25.10 Atherosclerotic heart disease of native coronary artery without angina pectoris; I13.10 Hypertensive heart and chronic kidney disease without heart failure, with stage 1 through stage 4 chronic kidney disease, or unspecified chronic kidney disease; N18.30 Chronic kidney disease, stage 3 unspecified; R60.0 Localized edema; Z87.891 Personal history of nicotine dependence; Z85.038 Personal history of other malignant neoplasm of large intestine; Z95.5 Presence of coronary angioplasty implant and graft; Z79.02 Long term (current) use of antithrombotics/antiplatelets; Z79.84 Long term (current) use of oral hypoglycemic drugs
CPT/HCPCS: 45385; 43255; 36415; 71046; 80048; 80053; 82948; 83036; 83735; 83880; 84484; 85014; 85018; 85025; 85027; 85610; 85730; 86850; 86900; 86901; 88305; 93005; 93970; 96361; 96374; 96375; 96376; 97161; 97165; 99285; A9270; C9113; G0378; J0360; J2370; J2704; J7120

== ENCOUNTER 2021-03-04 15:32 | Observation (INO) | payer MEDICARE, SELFPAY ==
[2021-03-04] VITALS (15 sets, daily range): BP systolic 114–154; BP diastolic 41–53; PULSE 49–81; RESP 12–25; TEMP 35.7; O2SAT 92–98; BMI 30.4
--- NOTE | ~2021-03-04 | CT_ITS ---
EXAMINATION: CT brain wo con EXAM DATE: 03/04/2021 15:50 INDICATION: Left arm and tongue paresthesia. TECHNIQUE: Spiral CT of the head was performed without contrast. Axial, coronal and sagittal images were reviewed. The dose-length product (DLP) for this examination was 605.33 mGy-cm. The exposure w as tailored according to patient size, and iterative reconstruction (ASIR) was used as additional dos e reduction technique. Comparison is made to prior examination from 09/29/2016. 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 Punctate old right cauda te head lacunar infarction. There is no acute intraparenchymal hemorrhage. No evidence of intraparen chymal brain mass lesion. No evidence of acute infarction. Please note that initial head CT has martin ited sensitivity for small or acute infarctions. There is periventricular and subcortical hypodensity , nonspecific but probably related to small vessel ischemic disease. There is prominence of the sul ci and ventricles related to cerebral atrophy. There is intracranial carotid arteriosclerosis. The re are no extra-axial collections. There is no mass effect or midline shift. The orbits are unremar kable. Soft tissue is unremarkable. The visualized sinuses and mastoid air cells are well aerated. IMPRESSION: 1. Small old infarctions. 2. Chronic age related findings. Reviewed, dictated and finalized at location A.
--- NOTE | ~2021-03-04 | CT_ITS ---
EXAMINATION: CT brain wo con INDICATION: Sudden onset tremors COMPARISON: 03/05/2021 TECHNIQUE: Standard unenhanced head CT. The dose-length product (DLP) was 605.33 mGy-cm. The mA was a djusted according to patient size. Iterative reconstruction technique was employed. FINDINGS: There is no acute intraparenchymal hemorrhage. No evidence of mass lesion. No evidence of a cute infarction. Again noted are old infarcts of the right caudate and left cerebellum There is mild periventricular and subcortical hypodensity probably related to small vessel ischemic disease. There is mild prominence of the sulci and ventricles related to cerebral atrophy. Intracranial calcified ce rebral atherosclerosis is noted. There are no extra-axial collections. There is no mass effect or mid line shift. Changes in the globes are likely from ocular lens surgery. The visualized sinuses and mas toid air cells are well aerated. IMPRESSION: 1. Areas of prior infarction without acute intracranial abnormality. 2. Age related findings. Reviewed, dictated and finalized at location A.
--- NOTE | ~2021-03-04 | US_ITS ---
EXAMINATION: US carotid duplex BI DATE: 03/05/2021 13:44 INDICATION: Infarcts in right caudate nucleus and left cerebellum. TECHNIQUE: Grayscale, color Doppler, and pulsed Doppler images of the cervical carotid arteries were obtained. The degree of vessel stenosis is placed in one of the following categories: normal, <50%, 5 0-69%, >=70% but less than near-occlusion, near-occlusion, or total occlusion. Note that percent sten osis relative to normal distal artery lumen diameter is indirectly measured from velocity measurement s as described by Edgar, et al. Radiology 2003; 229:340-346. COMPARISON: Ultrasound 09/28/2016 FINDINGS: RIGHT: The right common carotid artery (CCA) peak systolic velocity (PSV) is 49 cm/s. The right internal car otid artery (ICA) PSV is 133 cm/s. The right ICA end-diastolic velocity (EDV) is 41 cm/s. The right I CA/CCA PSV ratio is 2.8. Grayscale and color Doppler images yield an estimate of <50% diameter reduct ion from plaque in the ICA. There is antegrade flow in the right vertebral artery. LEFT: The left CCA PSV is 73 cm/s. The left ICA PSV is 95 cm/s. The left ICA EDV is 27 cm/s. The left ICA/C CA PSV ratio is 1.3. Grayscale and color Doppler images yield an estimate of <50% diameter reduction from plaque in the ICA. There is antegrade flow in the left vertebral artery. IMPRESSION: 1. <50% stenosis in the right internal carotid artery. 2. <50% stenosis in the left internal carotid artery. Reviewed, dictated and finalized at location A.
--- NOTE | ~2021-03-04 | MR_ITS ---
EXAMINATION: MR brain/brain stem wo/w con DATE: 03/05/2021 12:54 INDICATION: Numbness and tingling of the left hand. TECHNIQUE: Magnetic resonance imaging (MRI) of the brain and brainstem was performed without and with 15 mL MultiHance intravenous contrast. Sequences included sagittal and axial T1-weighted FSE, axial diffusion-weighted FS EPI, axial T2*-weighted GRE, axial T2-weighted FLAIR Propeller, and axial T2-we ighted Propeller. Postcontrast sequences included axial and coronal T1-weighted FSE. Apparent diffusi on coefficient (ADC) maps were created. COMPARISON: Brain MRI 09/28/2016, head CT 03/04/2021 FINDINGS: There are old infarcts in the left cerebellum and right caudate nucleus. There is no intrac ranial hemorrhage, acute infarction, or abnormal intracranial mass lesion. The ventricles are normal in size. There is mild mucosal thickening in the paranasal sinuses. There are likely changes of ocula r lens replacement surgeries. The mastoid air cells are normal. IMPRESSION: 1. 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 Reviewed, dictated and finalized at location A.
--- NOTE | ~2021-03-04 | XR_ITS ---
EXAMINATION: XR lumbar spine 6V w bending EXAM DATE: 03/06/2021 17:02 INDICATION: Leg weakness, worse with bending, syncope, fall. TECHNIQUE: Lumber spine frontal, lateral, bilateral oblique projections. Coned down frontal and lat eral L5-S1 lumbar projections for interpretation. Additional lateral flexion and lateral extension pr ojections obtained. Comparison is made to prior examination from 10/07/2015. FINDINGS: Mild diffuse loss of lumbar vertebral body heights, chronic. No spondylolysis. There are no acute fractures identified. Mild to moderate lower thoracic disc disease and L1-2, otherwise mild jaycee mbar disc disease. There is moderate lower lumbar facet arthropathy. The vertebral bodies are aligned on all of the lateral projections. Moderate aortic arterial sclerosis. Sacrum, sacroiliac joints, sa cral arcuate lines are intact. IMPRESSION: 1. No acute lumbar findings. 2. Mild to moderate disc disease, moderate lower lumbar arthropathy. Reviewed, dictated and finalized at location A.
--- NOTE | ~2021-03-04 | XR_ITS ---
EXAMINATION: XR chest 1V portable EXAM DATE: 03/04/2021 16:00 INDICATION: Stroke, right-sided numbness. Hypertension. TECHNIQUE: Portable AP frontal chest x-ray was obtained. Comparison is made to prior examination from 03/01/2021. FINDINGS: Some chronic prominent reticulation probably mild interstitial lung disease. No confluent c onsolidation, pneumothorax or pleural effusion suspected. Cardiomediastinal silhouette is normal. The re are mild bony degenerative changes. IMPRESSION: 1. No acute cardiopulmonary findings. Reviewed, dictated and finalized at location A.
--- NOTE | 2021-03-04 15:41 | ECG_ITS ---
Measurements Intervals [place] Rate: 50 P: 64 [place]: 206 QRS: -14 QRSD: 87 T: 71 QT: 421 QTc: 384 Interpretive Statements SINUS BRADYCARDIA BORDERLINE AV CONDUCTION DELAY BORDERLINE ST-T WAVE ABNORMALITY- ANTEROLAT/HIGH LAT LEADS BASELINE ARTIFACT- V5 BORDERLINE ECG Electronically Signed On 03-04-2021 16:02:02 CDT by Eduardo Haywood D.O.
--- NOTE | 2021-03-04 15:55 | ED.GENADULT ---
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 He eventually made his way back up the driveway with a mail. He states when he got back in the house he could not feel his hand but his fingers were drawing up . He denies any chest pain or shortness of breath, no visual changes but he states that his speech was not as good . All symptoms have resolved at this time, we are approximately 2 hours and 45 minutes from the time of the episode. He had a similar episode about a week and a half ago when she was riding about [place] and when he stopped he could not stand. He was brought to the emergency room and treated for heatstroke with IV fluids. His symptoms had resolved and he was discharged home. Onset (ago): hour(s) Location: face and upper extremity (left hand) Radiation: non-radiation Related Data Home Medications Medication Instructions Recorded Confirmed clonidine HCl 0.2 mg tablet 0.2 mg PO DAILY tablet 09/17/19 03/01/21 aspirin 81 mg tablet,delayed 81 mg PO DAILY 10/16/19 03/01/21 release nebivolol 20 mg tablet 10 mg PO DAILY tablet 06/09/20 03/01/21 rivaroxaban 20 mg tablet 20 mg PO DAILY 02/24/21 03/01/21 Allergies Allergy/AdvReac Type Severity Reaction Status Date / Time No Known Allergies Allergy Verified 03/02/21 10:04 Review of Systems Review of Systems: All systems reviewed & are unremarkable except as noted in HPI and below PMFSH Past Medical History Medical History Carotid artery stenosis CKD (chronic kidney disease) stage 3, GFR 30-59 ml/min GERD (gastroesophageal reflux disease) History of colon cancer History of colorectal cancer History of high cholesterol HTN (hypertension) Surgical History Surgical History (Updated 03/04/21 @ 16:15 by Nevaeh Johnson PA-C) History of colon surgery Family History Family History Mother Cerebrovascular accident Family history of coronary artery disease Sibling Family history of coronary artery disease Other Hypertension Other Diabetes mellitus Other Family history of cardiovascular disease Social History Social History Social History: Smoking packs per day: 2 Smoking cigarettes per day: 40.0 Years smoked: 53 Smoking pack-years: 106.00 Smoking status: Former smoker Tobacco type: cigarettes Second hand tobacco smoke exposure: No Smoking end date: 09/04/00 Alcohol intake: never Substance use: never Substance use type: does not use Gender identity (if verbalized by the patient): Male Spiritual care concerns: No Exam Eyes: Pupils: Equal, round and reactive pupils present EOM: EOMs intact bilaterally Neck: Neck: no lymphadenopathy Resp: Effort & Inspection: normal respiratory effort Auscultation: rales bilateral at the base Cardio: Rate: bradycardic (50) Rhythm: regular rhythm GI: GI Palp: Yes Soft to palpation Auscultation: normal bowel sounds Skin: General skin exam: normal color Rashes: no rashes Neuro: General: patient oriented x3, moves all extremities, no focal motor deficits and CN's II-XI intact bilaterally Speech: normal speech Extrem: General: normal to inspection and no clubbing, cyanosis or edema Psych: Affect: normal affect Attitude: cooperative Course Course Emergency Course: Spoke with Dr. Soliz from neurology. He agrees patient should be admitted for further work-up and resumption of
[2021-03-04 16:14] LABS: Basophils Absolute Auto 0.1 K/mm3 (0.0-0.1); Basophils Percent Auto 0.7 % (0.2-1.2); Eosinophils Absolute Auto 0.2 K/mm3 (0-0.3); Eosinophils Percent Auto 2.3 % (0-4.4); Hematocrit 28.4 % (42.0-52.0); Hemoglobin 8.9 g/dL (14.0-18.0); Immature Granulocyte Absolute 0.03 K/mm3 (0.00-0.031); Immature Granulocyte Percent A 0.4 % (0-0.5); Lymphocytes Absolute Auto 1.95 K/mm3 (0.9-3.2); Lymphocytes Percent Auto 23.2 % (18.3-44.2); Mean Corpuscular HGB Conc 31.3 g/dl (32-36); Mean Corpuscular Hemoglobin 30.1 pg (26-34); Mean Corpuscular Volume 95.9 fl (80-100); Mean Platelet Volume 10.3 fl (7.4-10.4); Monocytes Absolute Auto 0.9 K/mm3 (0.1-0.6); Neutrophils Absolute Auto 5.2 K/mm3 (1.3-6.7); Neutrophils Percent Auto 62.4 % (45.5-73.1); Platelet Count Result 299 k/mm3 (150-375); Red Blood Count 2.96 M/mm3 (4.6-6.20); Red Cell Distribution Width 15.4 % (11.5-14.5); White Blood Count 8.4 K/mm3 (4.5-10.0)
[2021-03-04 16:16] LABS: Glucose Point of Care 109 mg/dl (65-105)
[2021-03-04 16:24] LABS: INR 1.1; Prothrombin Time 13.6 Seconds (11.1-14.7)
[2021-03-04 16:25] LABS: Partial Thromboplastin Time 30.4 SECONDS (22.3-36.8)
[2021-03-04 16:26] LABS: Anion Gap 9 mmol/L (8-16); Blood Urea Nitrogen 36 mg/dL (9-20); Calcium 8.6 mg/dL (8.4-10.2); Carbon Dioxide 25 mmol/L (22-30); Chloride 105 mmol/L (98-107); Estimated CRCL calculation 23 ml/min; Estimated Glomerular Filt Rate 26; Glucose 105 mg/dL (75-110); Sodium 139 mmol/L (137-145)
[2021-03-04 16:37] LABS: Troponin I < 0.012 ng/mL (0.000-0.034)
[2021-03-04] MEDS: SODIUM CHLORIDE 0.9% IV 1,000 ML 999 ML IV CONT (17:11)
--- NOTE | 2021-03-04 17:52 | PC.NURSE ---
Called dietary and ordered heart healthy dinner tray at this time
--- NOTE | 2021-03-04 19:25 | PC.NURSE ---
Nurse on unit unable to receive report at this time. Floor will call back shortly.
--- NOTE | 2021-03-04 22:40 | PM.IMHP ---
H&P: HPI History of Present Illness Date/Time: 03/04/21 22:40 this is a 80-year-old male patient who was just discharged yesterday afternoon from our hospital services. The patient stated that he walked down his driveway to get his mail and when he reached into his mailbox he could feel his left hand. He stated he went to grab the mail dropped it picked it up and dropped again. He stated that his fingers were drawing up . The patient denied any shortness of breath or chest pain. The patient recently was taken off of Xarelto due to a GI bleed. The patient stated that he had difficulty expressing himself today and could get the words out. After calling several people they decided he needed to go back to the emergency room. But time he reached the emergency room and had been 2 hours and 45 minutes from the time the episode began until he came to the emergency room. He had a similar episode approximately week and half ago. He was here in the emergency room at that time was treated for heat stroke with IV fluids. The patient stated he had not been out in the sun today and that he had been sitting on his porch prior to going to get his mail. His symptoms have resolved by time he came to the emergency room. A CT of the brain was read as small old infarctions. Chronic age-related findings. Chest x-ray today was read as no acute cardiopulmonary findings. His H&H is 8.9 and 28.4. The patient was given IV fluids in the emergency room. The patient was admitted as inpatient services on the date of service of 03/04/2021. The patient was discharged from here on 03/03/2021. The patient had been here for GI bleed. The patient had a EGD colonoscopy on 03/02/2021 he had 1 actively bleeding AVM identified in the duodenum which was cauterized. He was started on pantoprazole. His Xarelto was on hold for several weeks. He also had some leg swelling and venous Dopplers which were negative for DVTs. Chief Complaint: Numbness to left hand Review of Systems Review of Systems: All systems reviewed & are unremarkable except as noted in HPI and below Constitutional: Constitutional: Reports as per HPI and Reports no additional constitutional complaints Eyes: Eyes: Reports as per HPI and Reports no additional eye complaints ENT: Reports system reviewed and no additional complaints, except as documented and Reports Normal hearing present Cardiovascular: Cardiovascular: Reports no additional cardiovascular complaints Respiratory: Respiratory: Reports no additional respiratory complaints and Reports no additional respiratory complaints Gastrointestinal: Gastrointestinal: Reports as per HPI and Reports no additional gastrointestinal complaints Musculoskeletal: Musculoskeletal: Reports no additional musculoskeletal complaints Integumentary/Breasts: Skin/Breast: Reports system reviewed and no additional complaints, except as docu and Reports as per HPI Neurologic: Reports system reviewed and no additional complaints, except as documented, Reports as per HPI and Reports Normal hearing present Psychiatric: Psychiatric: Reports no additional psychiatric complaints and Reports as per HPI Endocrine: Endocrine: Reports no additional endocrine complaints Hematologic/Lymphatic: Hematologic/Lymphatic: Reports no additional hematologic/lymphatic complaints Allergic/Immunologic: Allergic/Immunologic: Reports no additional allergic/immunologic complaints [facility] Past Medical History Medical History (Updated 03/04/21 @ 23:06 by Xi Jackson NP) BPH (benign prostatic hyperplasia) Carotid artery stenosis CKD (chronic kidney disease) stage 3, GFR 30-59 ml/min Diabetic neuropathy GERD (gastroesophageal reflux disease) History of colon cancer History of colorectal cancer History of high cholesterol HTN (hypertension) Hypertensive heart disease without heart failure Mixed hyperlipidemia Type 2 diabetes mellitus with diabetic peripheral angiopathy without
[2021-03-05] VITALS (10 sets, daily range): BP systolic 143–180; BP diastolic 40–94; PULSE 51–69; RESP 16–20; TEMP 36.1–36.7; O2SAT 95–96
--- NOTE | 2021-03-05 | ECHO_ITS ---
Patient Info Name: Enzo Pérez Age: 80 years : 1940 Gender: Male Ht: 65 in Wt: 182 lbs BSA: 1.97 m2 HR: 50 bpm BP: 180 / 60 mmHg Heart Rhythm: Sinus Rhythm Technical Quality: Good Exam Date: 03/05/2021 10:50 AM Exam Location: [facility] Card Pulmonary Patient Status: Inpatient Admit Date: 03/04/2021 Staff Ordering Physician: Xi Jackson NP Railroad Surveyor: Ric Barajas RDCS, RT Attending Provider: Oanh Vera NP Referring Physician: Manuel CAT; Exam Type: CA echo dop bubble study w con Study Info Indications G45.8 - Other transient cerebral ischemic attacks and related syndromes Complete two-dimentional, color flow and Doppler transthoracic echocardiogram is performed with agitated saline and with contrast to opacify the left ventricle and to improve the delineation of the left ventricle endocardial borders. Summary 1. Left ventricular hypertrophy with vigorous systolic function and grade 1 diastolic noncompliance. 2. Modestly dilated left atrium. 3. Mildly sclerotic aortic valve which functions normally. 4. No cardiac shunt seen on agitated saline contrast injection. 5. Definity contrast injected to improve visualization. Left Ventricle Left ventricular chamber dimension is normal. Left ventricular systolic function is normal, estimated at 65-70%. There is mild concentric increased left ventricular wall thickness. The left ventricular diastolic function is grade I diastolic dysfunction. Right Ventricle Right ventricular chamber dimension is normal. Left Atria Left atrial chamber dimension is mildly enlarged. Right Atria Right atrial chamber dimension is normal. Atrial Septum Intact interatrial septum visualized by agitated saline imaging. Aortic Valve The aortic valve is trileaflet. There is mild aortic valve sclerosis. Pulmonic Valve The pulmonic valve is normal. Mitral Valve The mitral valve has normal leaflets. Tricuspid Valve The tricuspid valve leaflets are normal. Pericardium/Pleural The pericardium appears normal. Aorta The aortic root size at the sinus of Valsalva is normal. Left Ventricular Outflow Tract Name Value Normal LVOT 2D LVOT Diameter 2.0 cm Aortic Valve Name Value Normal AV Regurgitation 2D LVOT Area 3.1 cm2 Ventricles Name Value Normal LV Dimensions 2D/MM LVOT Diameter 2.0 cm Report Signatures
[2021-03-05] MEDS: SODIUM CHLORIDE 0.9% IV 1,000 ML 100 ML IV CONT (01:46)
[2021-03-05 06:14] LABS: Basophils Absolute Auto 0.1 K/mm3 (0.0-0.1); Basophils Percent Auto 0.9 % (0.2-1.2); Eosinophils Absolute Auto 0.3 K/mm3 (0-0.3); Hematocrit 28.7 % (42.0-52.0); Hemoglobin 9.3 g/dL (14.0-18.0); Immature Granulocyte Absolute 0.02 K/mm3 (0.00-0.031); Immature Granulocyte Percent A 0.3 % (0-0.5); Lymphocytes Absolute Auto 1.68 K/mm3 (0.9-3.2); Lymphocytes Percent Auto 21.1 % (18.3-44.2); Mean Corpuscular HGB Conc 32.4 g/dl (32-36); Mean Corpuscular Hemoglobin 30.3 pg (26-34); Mean Corpuscular Volume 93.5 fl (80-100); Mean Platelet Volume 10.8 fl (7.4-10.4); Monocytes Absolute Auto 0.7 K/mm3 (0.1-0.6); Monocytes Percent Auto 9.3 % (2.6-8.5); Neutrophils Absolute Auto 5.1 K/mm3 (1.3-6.7); Neutrophils Percent Auto 64.4 % (45.5-73.1); Platelet Count Result 306 k/mm3 (150-375); Red Blood Count 3.07 M/mm3 (4.6-6.20); Red Cell Distribution Width 14.8 % (11.5-14.5)
[2021-03-05 06:23] LABS: Alanine Aminotransferase 14 U/L (4-50); Albumin Level 3.3 g/dL (3.5-5.1); Alkaline Phosphatase 51 U/L (38-126); Anion Gap 4 mmol/L (8-16); Aspartate Amino Transferase 24 U/L (17-59); Bilirubin,Total 1.2 mg/dL (0.2-1.3); Blood Urea Nitrogen 30 mg/dL (9-20); Calcium 9.1 mg/dL (8.4-10.2); Carbon Dioxide 28 mmol/L (22-30); Chloride 109 mmol/L (98-107); Estimated CRCL calculation 34 ml/min; Estimated Glomerular Filt Rate 42; Glucose 102 mg/dL (75-110); Lactate Dehydrogenase 333 U/L (313-618); Magnesium 2.1 mg/dL (1.6-2.3); Potassium 4.2 mmol/L (3.4-5.0); Sodium 141 mmol/L (137-145)
[2021-03-05 06:25] LABS: Lactic Acid Reflex 0.8 mmol/L (0.7-2.1)
[2021-03-05 06:34] LABS: Hemoglobin A1C 5.8 % (<5.7)
[2021-03-05] MEDS: cloNIDine HCL 0.2 MG TABLET PO (06:52)
--- NOTE | 2021-03-05 07:48 | ADMGEN ---
This patient, Enzo Pérez, was admitted to [facility] Surg Room 331-01. Patient/family oriented to hospital policies and general routines including ID bracelet, bed and alarms, visiting hours, pain management, procedures, bathroom and other care routines, personal items, smoking policy, room service/diet, and visiting hours. Information on how to activate the Rapid Response Team has been discussed. Patient/Family are encouraged to report perceived risks to care and to ask questions if they do not understand what they are told or what they should do. Discussed hospital policy, medications, health monitoring, and when to call for help.
[2021-03-05 08:53] LABS: Glucose Point of Care 123 mg/dl (65-105)
[2021-03-05] MEDS: NEBIVOLOL HCL 5 MG TABLET 10 MG PO (09:18)
[2021-03-05] MEDS: amLODIPine BESYLATE 5 MG TABLET 10 MG PO (09:18)
[2021-03-05] MEDS: ATORVASTATIN 40 MG TABLET PO (09:18)
[2021-03-05] MEDS: ASPIRIN 81 MG ENTERIC TABLET PO (09:18)
[2021-03-05] MEDS: PANTOPRAZOLE 40 MG TABLET PO (09:19)
[2021-03-05] MEDS: GABAPENTIN 300 MG CAPSULE PO ×3 (09:19→18:09)
[2021-03-05] MEDS: TAMSULOSIN HCL 0.4 MG CAPSULE PO (09:19)
--- NOTE | 2021-03-05 09:48 | WPDNEURCNPN ---
Assessment and Plan Additional Plan considering the history and symptomatology further evaluation for the possibility of TIA are being carried out if the studies are negative he could be started back on his Xarelto if it is okay with his photo optics technician but considering the history I will prefer the EMG nerve conduction studies done as an outpatient Consult date: 03/05/21 Time Seen: 09:45 HPI: Enzo Pérez is a 80 year old male readmitted to the hospital with history of discharge just yesterday, with information and he walked down private to get his male and when he reached in to his mailbox he could not feel his left hand he went to grab the mail dropped it picked it up and dropped it again his fingers were drawing up he is taken off Xarelto due to a GI bleed he also reported that he had difficulties in expressing himself on the day of admission could not get the words out by the time he reached the room after 2 hours and 45 minutes from the time the episode began he had a similar episode approximately week and half ago when he was treated for the heat stroke with IV fluids his symptoms had resolved by the time he came to the emergency room initial CT scan of the head documented a small old infarction in addition to chronic age-related finding chest x-ray was negative hemoglobin was 8.9 and was admitted for further observation and evaluation routine labs were consistent with hemoglobin of 9.3 WBC is 8000 platelet count 306 normal coagulation profile and BMP fairly normal except BUN 30 and creatinine 1.60 with GFR only [address] scan revealed no mass, bleed, several small old left cerebellar infarctions and a punctate old right caudate head lacunar infarct Review of Systems Review of Systems: All systems reviewed & are unremarkable except as noted in HPI and below [facility] Past Medical History Medical History BPH (benign prostatic hyperplasia) Carotid artery stenosis CKD (chronic kidney disease) stage 3, GFR 30-59 ml/min Diabetic neuropathy GERD (gastroesophageal reflux disease) History of colon cancer History of colorectal cancer History of high cholesterol HTN (hypertension) Hypertensive heart disease without heart failure Mixed hyperlipidemia Type 2 diabetes mellitus with diabetic peripheral angiopathy without gangrene Type 2 diabetes mellitus with other diabetic kidney complication Surgical History Surgical History H/O heart artery stent x3 History of colon surgery Hx of cataract extraction Hx of cholecystectomy S/P carotid endarterectomy on the right Family History Family History Mother Cerebrovascular accident Family history of coronary artery disease Sibling Family history of coronary artery disease Other Hypertension Other Diabetes mellitus Other Family history of cardiovascular disease Social History Social History Social History: , quit smoking in 2006. His brother is a durable cantilever crane operator for healthcare. The patient desires to be a full code. He has 1 son. 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 Smoking packs per day: 2 Smoking cigarettes per day: 40.0 Years smoked: 53 Smoking pack-years: 106.00 Smoking status: Former smoker Second hand tobacco smoke exposure: No Alcohol intake: never Substance use: never Substance use type: does not use Gender identity (if verbalized by the patient): Male Sexual Orientation (if Verbalized by the Patient): Straight or Heterosexual Spiritual care concerns: No Meds Home Medications and Allergies Home Medications Medication Instructions Recorded Confirmed Type clonidine HCl 0.2 mg tablet 0.2 mg PO DAILY tablet 09/17/19 03/04/21 History aspirin 81 mg tablet,delayed 81 mg PO DAILY 10/16/19 03/04/21 History release metform
[2021-03-05] MEDS: PERFLUTREN LIPID MICROSPHERES 1.5 ML VIAL DILUTED TO 10 ML TOTAL VOLUME IV PUSH (12:06)
[2021-03-05 14:10] LABS: Glucose Point of Care 90 mg/dl (65-105)
--- NOTE | 2021-03-05 15:57 | PM.IMPN ---
Progress Note: A&P Assessment and Plan (1) Tingling of left upper extremity: Code(s): R20.2 - Paresthesia of skin Status: Acute Assessment and Plan: left sided numbness and contractions in fingers completely resolved. no difficulty expressing himself today able to D/C IVFs, tolerating orals well venous Dopplers AGAIN negative for DVTs. 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 Chronic age-related findings. CXR clear. H&H low but stable 9.3/28.7. if contractures persist or return, EMG nerve conduction studies could be done as an outpatient Electrolytes K, Ca, Ma - all WNL -->need to discuss with Vice President Underwriting/Neurologist if we should restart Xarelto (ordered stool oocult) continue the pantoprazole. -->perhaps reduce the gabapentin doses (neurontin toxicity?). checked gabapentin level. ECHO pending. Possibly TIA (2) Type 2 diabetes mellitus with other diabetic kidney complication: Code(s): E11.29 - Type 2 diabetes mellitus with other diabetic kidney complication Status: Chronic Assessment and Plan: Accu-Cheks AC and HS. Hold metformin. (3) Atrial flutter: Code(s): I48.92 - Unspecified atrial flutter Status: Chronic Assessment and Plan: Xarelto is on hold at this time. 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 check stool occult blood H/H 9.3/28.7 Plts 306 Continue to monitor. (5) HTN (hypertension): Code(s): I10 - Essential (primary) hypertension Status: Chronic Assessment and Plan: controlled at this time 143/40 HR 53-69 Continue with Norvasc, Catapres, and Bystolic.hold hydrochlorothiazide, Avapro, (6) CKD (chronic kidney disease) stage 3, GFR 30-59 ml/min: Code(s): N18.3 - Chronic kidney disease, stage 3 (moderate) Status: Chronic Assessment and Plan: at admission Creatinine 2.4 which is worse than normal. Hold nephrotoxic medications educated patient and his brother about nephrotoxic meds and renal failure / CT contrast / antibiotics/ dehydration IVF hydration after IVFs, creatinine 1.6 today, back to baseline 1.4 -1.6. (7) Carotid artery stenosis: Code(s): I65.29 - Occlusion and stenosis of unspecified carotid artery Status: Chronic Assessment and Plan: patient stated that he had approximately 70% stenosis on 1 side & carotid enterectomy on the other side. checked carotid Dopplers, <50 % stenosis bilaterally Continue with Lipitor, ASA (8) Mixed hyperlipidemia: Code(s): E78.2 - Mixed hyperlipidemia Status: Chronic Assessment and Plan: Continue with Lipitor (9) BPH (benign prostatic hyperplasia): Code(s): N40.0 - Benign prostatic hyperplasia without lower urinary tract symptoms Status: Chronic Assessment and Plan: continue with tamsulosin Subjective Date/time seen: 03/05/21 15:57 Interval history: Enzo is a 80-year-old male patient who was just discharged on Monday of this week; readmitted yesterday for left sided numbness when his left fingers kept lonnie and causing him to drop his mail 2 x. He had difficulty expressing himself today and could not get the words out. After calling several people, they decided he needed to go back to the emergency room. But s/s resolved by ED admission. Similar episode approximately week and half ago and was treated for heat stroke with IV fluids. Recently was taken off of Xarelto due to a GI bleed. Admitted for GI bleed, EGD colonoscopy on 03/02/2021 with 1 active bleeding AVM in duodenum which was cauterized; started on pantoprazole. Xarelto held for several weeks, leg swelling but venous Dopplers which were neg
[2021-03-05 17:30] LABS: Glucose Point of Care 68 mg/dl (65-105)
[2021-03-05 18:13] LABS: Glucose Point of Care 125 mg/dl (65-105)
[2021-03-05 20:42] LABS: Glucose Point of Care 106 mg/dl (65-105)
[2021-03-06] VITALS (14 sets, daily range): BP systolic 121–188; BP diastolic 42–95; PULSE 49–70; RESP 18; TEMP 36.1–36.4; O2SAT 93–97
[2021-03-06 06:17] LABS: Hematocrit 29.2 % (42.0-52.0); Hemoglobin 9.5 g/dL (14.0-18.0); Mean Corpuscular HGB Conc 32.5 g/dl (32-36); Mean Corpuscular Hemoglobin 30.2 pg (26-34); Mean Corpuscular Volume 92.7 fl (80-100); Mean Platelet Volume 10.5 fl (7.4-10.4); Platelet Count Result 329 k/mm3 (150-375); Red Blood Count 3.15 M/mm3 (4.6-6.20); Red Cell Distribution Width 14.7 % (11.5-14.5); White Blood Count 9.7 K/mm3 (4.5-10.0)
[2021-03-06 06:37] LABS: Anion Gap 6 mmol/L (8-16); Blood Urea Nitrogen 19 mg/dL (9-20); Calcium 9.3 mg/dL (8.4-10.2); Carbon Dioxide 27 mmol/L (22-30); Chloride 108 mmol/L (98-107); Estimated CRCL calculation 42 ml/min; Estimated Glomerular Filt Rate 53; Glucose 108 mg/dL (75-110); Potassium 4.1 mmol/L (3.4-5.0); Sodium 141 mmol/L (137-145)
[2021-03-06 06:52] LABS: Iron < 10 ug/dL (49-181)
[2021-03-06 07:03] LABS: Percent Iron Saturation 2 % (20-50)
[2021-03-06 07:25] LABS: Glucose Point of Care 111 mg/dl (65-105)
[2021-03-06 07:32] LABS: Folic Acid 7.9 ng/mL (2.76->20)
[2021-03-06] MEDS: amLODIPine BESYLATE 5 MG TABLET 10 MG PO (08:09)
[2021-03-06] MEDS: PANTOPRAZOLE 40 MG TABLET PO (08:09)
[2021-03-06] MEDS: NEBIVOLOL HCL 5 MG TABLET 10 MG PO (08:09)
[2021-03-06] MEDS: GABAPENTIN 300 MG CAPSULE PO ×2 (08:09→17:12)
[2021-03-06] MEDS: ASPIRIN 81 MG ENTERIC TABLET PO (08:09)
[2021-03-06] MEDS: TAMSULOSIN HCL 0.4 MG CAPSULE PO (08:10)
[2021-03-06] MEDS: ATORVASTATIN 40 MG TABLET PO (08:10)
[2021-03-06] MEDS: cloNIDine HCL 0.2 MG TABLET PO (08:10)
--- NOTE | 2021-03-06 11:06 | PM.DS ---
DS: Discharge Diagnosis Discharge Diagnosis (1) Tingling of left upper extremity: Code(s): R20.2 - Paresthesia of skin Status: Acute Assessment and Plan: left sided numbness and contractions in fingers completely resolved. no difficulty expressing himself today able to D/C IVFs, tolerating orals well venous Dopplers AGAIN negative for DVTs. 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 Chronic age-related findings. CXR clear. H&H low but stable 9.3/28.7. if contractures persist or return, EMG nerve conduction studies could be done as an outpatient Electrolytes K, Ca, Ma - all WNL -->need to discuss with Compensation Agent/Neurologist if we should restart Xarelto (ordered stool oocult) continue the pantoprazole. -->perhaps reduce the gabapentin doses (neurontin toxicity?). checked gabapentin level. ECHO wnl, EF 65-70%, no concerning valvular disease or effusion. Possibly TIA may be related to Anemia or Bradycardia or Acute on chronic renal failure or Lorzepam Dosing - will encourage patient to discuss with his Compensation Agent/PCP and cut his BB dose to half, holding Lorzepam, encourage better hydration at home. (2) Type 2 diabetes mellitus with other diabetic kidney complication: Code(s): E11.29 - Type 2 diabetes mellitus with other diabetic kidney complication Status: Chronic Assessment and Plan: Accu-Cheks AC and HS. Hold metformin. (3) Atrial flutter: Code(s): I48.92 - Unspecified atrial flutter Status: Chronic Assessment and Plan: Xarelto is on hold at this time. HR controlled 49-70 Continue with 10 mg nebivolol - but at half dose no headache, no dizziness or light-headedness now Possibly TIA may be related to Anemia or Bradycardia - will encourage patient to discuss with his Compensation Agent/PCP and cut his BB dose to half. 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 check stool occult blood - no blood H/H 9.3/28.7 Plts 306 Continue to monitor. (5) HTN (hypertension): Code(s): I10 - Essential (primary) hypertension Status: Chronic Assessment and Plan: controlled at this time 148/94 to 158.50 HR 49-70 Continue with Norvasc, Catapres, and Bystolic. hydrochlorothiazide, Avapro (6) CKD (chronic kidney disease) stage 3, GFR 30-59 ml/min: Code(s): N18.3 - Chronic kidney disease, stage 3 (moderate) Status: Chronic Assessment and Plan: at admission Creatinine 2.4 which is worse than normal. Hold nephrotoxic medications educated patient and his brother about nephrotoxic meds and renal failure / CT contrast / antibiotics/ dehydration IVF hydration after IVFs, creatinine 1.6 improved to 1.3 today, back to baseline 1.4 -1.6. (7) Carotid artery stenosis: Code(s): I65.29 - Occlusion and stenosis of unspecified carotid artery Status: Chronic Assessment and Plan: patient stated that he had approximately 70% stenosis on 1 side & carotid enterectomy on the other side. checked carotid Dopplers, <50 % stenosis bilaterally Continue with Lipitor, ASA (8) Mixed hyperlipidemia: Code(s): E78.2 - Mixed hyperlipidemia Status: Chronic Assessment and Plan: Continue with Lipitor (9) BPH (benign prostatic hyperplasia): Code(s): N40.0 - Benign prostatic hyperplasia without lower urinary tract symptoms Status: Chronic Assessment and Plan: continue with tamsulosin DS: Summary Time Spent with Patient Time attestation: Total time spent providing and/or coordinating discharge services: Exam Narrative: Exam Narrative: awake alert cooperative no distress head normocephalic with no cranial bruit nose throat examination normal neck supple with no cervical bruit no thyromegaly no lym
--- NOTE | 2021-03-06 12:54 | ECG_ITS ---
Measurements Intervals [place] Rate: 70 P: 87 NV: 202 QRS: -31 QRSD: 86 T: 83 QT: 369 QTc: 400 Interpretive Statements SINUS RHYTHM LEFT AXIS DEVIATION BORDERLINE ST-T WAVE ABNORMALITY- DIFFUSE LEADS BASELINE ARTIFACT- I, II, III, AVR, AVL, AVF, V1-V6 BORDERLINE ECG Electronically Signed On 03-06-2021 20:52:12 CDT by Eduardo Haywood D.O.
[2021-03-06] MEDS: LORazepam (*CRX) 0.5 MG TABLET PO (13:13)
--- NOTE | 2021-03-06 13:15 | PC.NURSE ---
Patient became weak and felt like legs were giving out. RN helped patient back to bed. Patient started having tremors. Oanh Vera MEDIA RELATIONS ASSOCIATE at bedside.
[2021-03-06] MEDS: diphenhydrAMINE HCl INJ 50 MG/ML VIAL 25 MG IV PUSH (13:33)
[2021-03-06] MEDS: LORazepam INJ (*CRX) 2 MG/ML VIAL 0.5 MG IV PUSH (13:36)
[2021-03-06 13:41] LABS: Glucose Point of Care 129 mg/dl (65-105)
--- NOTE | 2021-03-06 16:15 | PM.IMPN ---
Progress Note: A&P Assessment and Plan (1) Tingling of left upper extremity: Code(s): R20.2 - Paresthesia of skin Status: Acute Assessment and Plan: left sided numbness and contractions in fingers completely resolved. no difficulty expressing himself today able to D/C IVFs, tolerating orals well venous Dopplers AGAIN negative for DVTs. 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 Chronic age-related findings. CXR clear. H&H low but stable 9.3/28.7. if contractures persist or return, EMG nerve conduction studies could be done as an outpatient Electrolytes K, Ca, Ma - all WNL -->need to discuss with Server Developer/Neurologist if we should restart Xarelto (ordered stool oocult) continue the pantoprazole. -->perhaps reduce the gabapentin doses (neurontin toxicity?). checked gabapentin level. ECHO wnl, EF 65-70%, no concerning valvular disease or effusion. Possibly TIA may be related to Anemia or Bradycardia or Acute on chronic renal failure or Lorzepam Dosing - will encourage patient to discuss with his Server Developer/PCP and cut his BB dose to half, holding Lorzepam, encourage better hydration at home. please see Functional Neurological Disorder Plan noted below. (2) Type 2 diabetes mellitus with other diabetic kidney complication: Code(s): E11.29 - Type 2 diabetes mellitus with other diabetic kidney complication Status: Chronic Assessment and Plan: Accu-Cheks AC and HS. Hold metformin. (3) Atrial flutter: Code(s): I48.92 - Unspecified atrial flutter Status: Chronic Assessment and Plan: Xarelto is on hold at this time. HR controlled 49-70 Continue with 5 mg nebivolol due to HR 40-60s and episodes of syncope no headache, no dizziness or light-headedness now currently in Sinus may be related to Anemia or Bradycardia - will encourage patient to discuss with his Server Developer/PCP and cut his BB dose to half. 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 check stool occult blood H/H .5/29 Plts 329 Continue to monitor. (5) HTN (hypertension): Code(s): I10 - Essential (primary) hypertension Status: Chronic Assessment and Plan: controlled at this time 148/94 to 158/50 HR 49-70 Continue with Norvasc, Catapres, and Bystolic. hydrochlorothiazide, Avapro (6) CKD (chronic kidney disease) stage 3, GFR 30-59 ml/min: Code(s): N18.3 - Chronic kidney disease, stage 3 (moderate) Status: Chronic Assessment and Plan: at admission Creatinine 2.4 which is worse than normal. Hold nephrotoxic medications educated patient and his brother about nephrotoxic meds and renal failure / CT contrast / antibiotics/ dehydration IVF hydration after IVFs, creatinine 1.6 improved to 1.3 today, back to better than baseline 1.4 -1.6. (7) Carotid artery stenosis: Code(s): I65.29 - Occlusion and stenosis of unspecified carotid artery Status: Chronic Assessment and Plan: patient stated that he had approximately 70% stenosis on 1 side & carotid enterectomy on the other side - did not find evidence of such. 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
[2021-03-06 17:11] LABS: Add Urine Microscopic? NO; Appearance Urine Clear (Clear); Bilirubin Urine Negative (Negative); Blood Urine Negative (Negative); Color Urine Straw (Yellow); Glucose Urine UA Negative (Negative); Ketones Urine Negative (Negative); Leukocyte Esterase Ur Negative LEU/UL (NEGATIVE); Nitrate Urine Negative (Negative); Protein Urine Negative (Negative); Specific Grav Ur 1.005 (1.001-1.035); Urobilinogen Urine Negative mg/dL (<2.0)
[2021-03-06 17:43] LABS: Glucose Point of Care 123 mg/dl (65-105)
[2021-03-06 20:43] LABS: Glucose Point of Care 93 mg/dl (65-105)
[2021-03-06 22:07] LABS: IFOB Positive Control Positive; Immunochemical Fecal Occult Bl Positive (N)
[2021-03-07] VITALS (7 sets, daily range): BP systolic 123–162; BP diastolic 38–62; PULSE 49–73; RESP 18; TEMP 36.8–36.9; O2SAT 95–97
[2021-03-07 06:10] LABS: Hematocrit 28.9 % (42.0-52.0); Hemoglobin 9.1 g/dL (14.0-18.0); Mean Corpuscular HGB Conc 31.5 g/dl (32-36); Mean Corpuscular Hemoglobin 29.5 pg (26-34); Mean Corpuscular Volume 93.8 fl (80-100); Mean Platelet Volume 10.7 fl (7.4-10.4); Platelet Count Result 319 k/mm3 (150-375); Red Blood Count 3.08 M/mm3 (4.6-6.20); Red Cell Distribution Width 14.8 % (11.5-14.5); White Blood Count 6.9 K/mm3 (4.5-10.0)
[2021-03-07 06:26] LABS: Anion Gap 6 mmol/L (8-16); Blood Urea Nitrogen 17 mg/dL (9-20); Calcium 9.1 mg/dL (8.4-10.2); Carbon Dioxide 28 mmol/L (22-30); Chloride 108 mmol/L (98-107); Estimated CRCL calculation 39 ml/min; Estimated Glomerular Filt Rate 49; Glucose 107 mg/dL (75-110); Potassium 4.4 mmol/L (3.4-5.0); Sodium 142 mmol/L (137-145)
[2021-03-07 07:53] LABS: Glucose Point of Care 97 mg/dl (65-105)
[2021-03-07] MEDS: POLYSACCHARIDE IRON COMPLEX 150 MG CAPSULE PO (08:20)
[2021-03-07] MEDS: amLODIPine BESYLATE 5 MG TABLET 10 MG PO (08:21)
[2021-03-07] MEDS: GABAPENTIN 300 MG CAPSULE PO ×2 (08:21→13:00)
[2021-03-07] MEDS: ASPIRIN 81 MG ENTERIC TABLET PO (08:21)
[2021-03-07] MEDS: cloNIDine HCL 0.2 MG TABLET PO (08:22)
[2021-03-07] MEDS: TAMSULOSIN HCL 0.4 MG CAPSULE PO (08:22)
[2021-03-07] MEDS: NEBIVOLOL HCL 5 MG TABLET PO (08:22)
[2021-03-07] MEDS: PANTOPRAZOLE 40 MG TABLET PO (08:22)
[2021-03-07] MEDS: ATORVASTATIN 40 MG TABLET PO (08:22)
[2021-03-07 12:57] LABS: Glucose Point of Care 102 mg/dl (65-105)
--- NOTE | 2021-03-07 12:58 | PM.CNCAR ---
Assessment and Plan Additional Plan this is a 80-year-old man with: Coronary artery disease and atrial flutter. Remote history of PCI to the right coronary artery many years ago no recent ischemic issues. He had an episode of atrial flutter noted in the emergency room at another hospital early part of this year. After that on Xarelto. He is currently hospitalized with symptoms of the cramping of his left hand and contraction of the fingers with flexion of the fingers. This resolved after about an hour so. There is no other physical exam evidence of a stroke according to Neurology consultation and CT does not show any evidence of anything acute either. At this point I would not have any specific cardiac recommendations. I do not believe I would recommend implanting a loop recorder in him under these circumstances. He has been in the hospital a couple of times recently and there have been no arrhythmias identified on telemetry. if he does have episodes of atrial arrhythmia is recurrent leave that would require anticoagulation I would probably speak to him about a Watchman device at that time. I will arrange for sooner interval follow-up in my office I typically see him at 6 month intervals and just saw him about 2 weeks ago in the office. He appears to be stable enough for discharge to home. Alex Garcia MD [facility] History of Present Illness History of Present Illness Consult date/time: 03/07/21 12:58 Reason For Visit: TIA Narrative: This is a 80-year-old man who I know that has a history of coronary artery disease and a previous history of atrial flutter. I am seeing him at the request of the hospitalist today to have an opinion on whether or not an implantable loop recorder or a pacemaker would be indicated. He is asymptomatic at this time and does not have any complaints he is in room 331 on telemetry. The patient was in the hospital here recently several days ago and had evidence of some GI bleeding and anemia. Because of his atrial arrhythmia he was anticoagulated with Xarelto which has been stopped appropriately. He had a GI evaluation and I believe had an AVM cauterized and was discharged shortly after that. During the hospital stay for something like for 5 days he was in sinus rhythm / sinus bradycardia there was no evidence of any recurrent atrial arrhythmias. He came back to the hospital here within 24 hours of being discharged complaining of the sense of cramping of his palm of his left hand. His said his hand beht up and contracted. Altogether list lasted about an hour or 2 before it spontaneously resolved. He was once again hospitalized once again his telemetry demonstrates sinus rhythm/ sinus bradycardia. He was going to be discharged yesterday and apparently that he had an episode where he felt poorly and was apparently seen at by the rapid response team and was feeling unwell with the sense of lightheadedness and/or near syncope. His vital signs were fine his telemetry continues to show sinus rhythm/ sinus bradycardia throughout the entire event which lasted about an hour. The patient has a history of coronary artery disease underwent stenting of his right coronary artery in 2006 he has been doing well since then and has not had any overt symptom or problematic myocardial ischemia since that time. In the time when I am seeing this man in the office he in sinus rhythm he tends to be bradycardic with heart rates in the mid 40s to low 50s most of the time. Last year I did reduce his Bystolic dosage from 20-10 mg In response to that. He was seen in the hospital emergency room at [place] in the early part of this year and was apparently had an episode of atrial flutter. He was there complaining about weakness and difficulty walking. He was started on Xarelto at that time and told to follow up with me in the office. When I saw him in the office after this he was in sinus rhythm. He had no other awareness of atrial
[2021-03-07] MEDS: LORazepam (*CRX) 0.5 MG TABLET PO (13:00)
--- NOTE | 2021-03-07 14:23 | PM.DS ---
DS: Admitting Diagnosis Admitting Diagnosis Admitting Diagnosis: tingling of left upper extremity type 2 diabetes aflutter functional neurological disorders DS: Discharge Diagnosis Discharge Diagnosis (1) Tingling of left upper extremity: Code(s): R20.2 - Paresthesia of skin Status: Acute Assessment and Plan: left sided numbness and contractions in fingers completely resolved. no difficulty expressing himself today , all neuro checks today have been within normal limits per nursing staff able to D/C IVFs, tolerating orals well venous Dopplers AGAIN negative for DVTs. 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 Chronic age-related findings. CXR clear. H&H low but stable 9.3/28.7. if contractures persist or return, EMG nerve conduction studies could be done as an outpatient Electrolytes K, Ca, Ma - all WNL appreciate explosive operator bomb consultation - will discuss the Watchmen procedure with patient, but did not see a need for loop recorder continue the pantoprazole. reduce the gabapentin doses (neurontin toxicity?). checked gabapentin level. ECHO wnl, EF 65-70%, no concerning valvular disease or effusion. Possibly TIA or possible functional neurological disorder. Cut his BB dose to 5 mg, divided the lorazepam doses, encourage better hydration at home. please see Functional Neurological Disorder Plan noted below. (2) Type 2 diabetes mellitus with other diabetic kidney complication: Code(s): E11.29 - Type 2 diabetes mellitus with other diabetic kidney complication Status: Chronic Assessment and Plan: Accu-Cheks AC and HS. restarted metformin. (3) Atrial flutter: Code(s): I48.92 - Unspecified atrial flutter Status: Chronic Assessment and Plan: Xarelto is on hold at this time. stool occult positive - informed patient and educated him. He voiced understanding and denied that he had tarry stools at this time. 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 positive stool occult blood H/H 9.01/30 Plts 329 Continue to monitor. (5) HTN (hypertension): Code(s): I10 - Essential (primary) hypertension Status: Chronic Assessment and Plan: controlled at this time 148/94 to 158/50 HR 49-70 Continue with Norvasc, Catapres, and Bystolic. hydrochlorothiazide, Avapro (6) CKD (chronic kidney disease) stage 3, GFR 30-59 ml/min: Code(s): N18.3 - Chronic kidney disease, stage 3 (moderate) Status: Chronic Assessment and Plan: at admission Creatinine 2.4 which is worse than normal. Hold nephrotoxic medications educated patient and his brother about nephrotoxic meds and renal failure / CT contrast / antibiotics/ dehydration IVF hydration after IVFs, creatinine 1.6 improved to 1.3 and 1.4 today, back to baseline 1.4 -1.6. (7) Carotid artery stenosis: Code(s): I65.29 - Occlusion and stenosis of unspecified carotid artery Status: Chronic Assessment and Plan: patient stated that he had approximately 70% stenosis on 1 side & carotid enterectomy on the other side - did not find evidence of such. checked carotid Dopplers, <50 % stenosis bilaterally Continue with Lipitor, ASA (8) Mixed hyperlipidemia: Code(s): E78.2 - Mixed hyperlipidemia Status: Chronic Assessment and Plan: Continue with Lipitor (9) BPH (benign prostatic hyperplasia): Code(s): N40.0 - Benign prostatic hyperplasia without lower urinary tract symptoms Status: Chronic
== END 2021-03-07 15:05 | disposition short-term general hospital (02) ==
LOC: ANHED 16:17 → ANH3MEDSUR 03-05 00:57
PROVIDERS: Emergency Medicine; Nurse Practitioner; Admitting Provider Internal Medicine; Emergency Provider Emergency Medicine; PCP Family Medicine; Visit Provider Nurse Practitioner
DX: R20.2 Paresthesia of skin (principal); R29.818 Other symptoms and signs involving the nervous system; F44.5 Conversion disorder with seizures or convulsions; I48.92 Unspecified atrial flutter; I65.29 Occlusion and stenosis of unspecified carotid artery; I12.9 Hypertensive chronic kidney disease with stage 1 through stage 4 chronic kidney disease, or unspecified chronic kidney disease; N18.30 Chronic kidney disease, stage 3 unspecified; E11.22 Type 2 diabetes mellitus with diabetic chronic kidney disease; E11.40 Type 2 diabetes mellitus with diabetic neuropathy, unspecified; E11.51 Type 2 diabetes mellitus with diabetic peripheral angiopathy without gangrene; D64.9 Anemia, unspecified; K21.9 Gastro-esophageal reflux disease without esophagitis; E78.00 Pure hypercholesterolemia, unspecified; E78.5 Hyperlipidemia, unspecified; K31.819 Angiodysplasia of stomach and duodenum without bleeding; N40.0 Benign prostatic hyperplasia without lower urinary tract symptoms; Z87.891 Personal history of nicotine dependence; Z85.038 Personal history of other malignant neoplasm of large intestine; Z95.5 Presence of coronary angioplasty implant and graft; Z90.49 Acquired absence of other specified parts of digestive tract; Z98.49 Cataract extraction status, unspecified eye
CPT/HCPCS: 36415; 70450; 70553; 71045; 72114; 80048; 80053; 80171; 81003; 82274; 82607; 82728; 82746; 82948; 83036; 83540; 83550; 83605; 83615; 83735; 84443; 84484; 85025; 85027; 85610; 85730; 87040; 87086; 93005; 93880; 96361; 96374; 96375; 97161; 97165; 99285; A9270; A9577; C8929; G0378; J1200; J2060; J7030; Q9957

== ENCOUNTER 2021-08-16 11:02 | Outpatient (CLI) | payer MEDICARE, SELFPAY ==
[2021-08-19 09:50] LABS: Metanephrine, Total Urine 319; Metanephrine, Urine 99; Normetanephrine, Urine 220
== END 2021-08-16 11:03 | disposition home or self-care (01) ==
LOC: ANHLAB 11:06
PROVIDERS: PCP Family Medicine; Visit Provider Physician Assistant
DX: I11.9 Hypertensive heart disease without heart failure (principal)
CPT/HCPCS: 83835

== ENCOUNTER 2021-10-19 11:38 | Outpatient (CLI) | payer MEDICARE, SELFPAY ==
--- NOTE | ~2021-10-19 | XR_ITS ---
XR_CERV2-3V_CR DATE: 10/19/2021 11:56 INDICATION: Surgical fusion on October 08 TECHNIQUE: AP and lateral views COMPARISON: None FINDINGS: Surgical clips are noted in the left cervical soft tissues. Diffuse osteopenia. C1 and C2 are normally aligned and the odontoid process is intact. There is straightening of the cervical spine. There is moderately severe degenerative disc disease at C4-5 and C5-6. C6 and C7 are not fully included in the examination; the examination is therefore incomplete. There is suggestion of an old C7 spinous process fracture. Uncovertebral joint spurring in the mid and lower cervical spine. Degenerative change at the apophys eal joints. IMPRESSION: Straightening Severe degenerative disc disease at C4-5, C5-6 Incomplete examination, not fully demonstrating C6 and C7 Reviewed, dictated and finalized at Location A. Reviewed, dictated and finalized at location B. NESS SYSTEM CONSULTANT
== END 2021-10-19 11:39 | disposition home or self-care (01) ==
LOC: ANHIMG 11:40
PROVIDERS: PCP Family Medicine; Visit Provider Neurological Surgery
DX: Z98.1 Arthrodesis status (principal); M47.812 Spondylosis without myelopathy or radiculopathy, cervical region
CPT/HCPCS: 72040

== ENCOUNTER → 2021-10-27 16:08 | Outpatient (REF) | payer MEDICARE, SELFPAY | LOC: ANHLAB 16:08 | PROVIDERS: PCP Family Medicine; Visit Provider Surgery Plastic and Reconstructive Surgery | DX: C44.319 Basal cell carcinoma of skin of other parts of face (principal) | CPT/HCPCS: 88305 ==

== ENCOUNTER 2021-11-10 10:09 | Outpatient (CLI) | payer MEDICARE, SELFPAY ==
--- NOTE | ~2021-11-10 | US_ITS ---
EXAMINATION: US retroperitoneal duplex ltd EXAM DATE: 11/10/2021 10:52 INDICATION: Renal arteriosclerosis, high blood pressure. TECHNIQUE: Multiple grayscale and Doppler images of the kidneys and renal arteries were obtained. Co rrelation is made to kidney ultrasound 06/04/2012. FINDINGS: The aorta peak systolic velocity is 67 cm/s. Renal arteries interrogated in several segments from origin to hilum. RIGHT RENAL ARTERY Proximal segment (origin): 100 cm/s. Middle segment: 86 cm/s. Distal segment (hilum): 106 cm/s. LEFT RENAL ARTERY Proximal segment (origin): 72 cm/s. Middle segment: 72 cm/s. Distal segment (hilum): 68 cm/s. IMPRESSION: 1. Renal artery Doppler velocities within normal limits. Reviewed, dictated and finalized at location A. FFIN PLANT OPERATOR
== END 2021-11-10 10:10 | disposition home or self-care (01) ==
LOC: ANHIMG 10:12
PROVIDERS: PCP Family Medicine; Visit Provider Family Medicine
DX: I70.1 Atherosclerosis of renal artery (principal)
CPT/HCPCS: 93976

== ENCOUNTER 2021-11-19 12:04 | Outpatient (CLI) | payer MEDICARE, SELFPAY ==
--- NOTE | ~2021-11-19 | XR_ITS ---
XR chest 2V 11/19/2021 12:21 Indication: Shortness of breath with exertion Procedure: PA and lateral views of the chest Comparison: Comparison to multiple prior studies sequentially, with oldest reviewed study dated 09/27. Findings: There is chronic bibasilar atelectasis/scarring. Heart size normal. No acute focal pneumoni a, edema, pleural effusion or pneumothorax. The lungs are hyperinflated which is consistent with, but not diagnostic of chronic obstructive pulmonary disease. Impression: 1: No acute cardiopulmonary disease. Reviewed, dictated and finalized at location B. Impression: 1: No acute cardiopulmonary disease.
== END 2021-11-19 12:05 | disposition home or self-care (01) ==
LOC: ANHIMG 12:04
PROVIDERS: PCP Family Medicine; Visit Provider Physician Assistant
DX: R06.02 Shortness of breath (principal)
CPT/HCPCS: 71046

== ENCOUNTER 2021-12-23 13:42 | Outpatient (CLI) | payer MEDICARE, SELFPAY ==
--- NOTE | 2021-12-28 20:45 | WPDPFTINT ---
PFT Procedure Performed PFT Procedure Performed Spirometry with Pre/Post Bronchodilator Plethysmography (Lung Vol) Diffusing Cap (DLCO) PFT Interpretation DOS: 12/23/2021 REQUESTING: Nestor Gann PA-C REASON FOR TESTING: Shortness of breath PULMONARY FUNCTION TESTS Results are reliable and reproducible. Spirometry: Pre bronchodilator FEV1 is 65% predicted, 1.6 L, moderately reduced. FVC is 99% predicted, 3.23 L, normal. The FEF 25-75 is reduced 50%, consistent with airflow obstruction. After bronchodilator therapy there is a 12% increase in the FVC greater than 200 mils. This is a significant response to bronchodilator. Lung volumes: The total lung capacity is 124%, 7.47 L, mildly increased consistent with hyperinflation. Slow vital capacity is 143% which is significantly higher than the forced vital capacity. This demonstrates dynamic obstruction. Functional residual capacity is 89% which is normal. ERV is decreased at 9% predicted. Residual volume 117% predicted, normal. The RV / TLC is within the normal range. range. Airway resistance is increased. Diffusion: DLCO is 61%, and when corrected for alveolar surface area, remains low, DLCO/VA is 66%. Flow volume loop: non-specific irregular pattern. IMPRESSION: There is a moderate obstructive ventilatory impairment with good response to bronchodilator, mild hyperinflation and mild diffusion impairment. This pattern can be seen in chronic obstructive pulmonary disease. 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 Clinical correlation is recommended. Radhika Sanchez MD
== END 2021-12-23 13:43 | disposition home or self-care (01) ==
PROVIDERS: PCP Family Medicine; Visit Provider Physician Assistant
DX: R06.02 Shortness of breath (principal); R93.89 Abnormal findings on diagnostic imaging of other specified body structures
CPT/HCPCS: 94060; 94726; 94729

== ENCOUNTER 2022-02-28 07:05 | Outpatient (CLI) | payer MEDICARE, SELFPAY ==
[2022-02-28 08:23] LABS: Anion Gap 8 mmol/L (8-16); Blood Urea Nitrogen 23 mg/dL (9-20); Calcium 9.2 mg/dL (8.4-10.2); Carbon Dioxide 25 mmol/L (22-30); Chloride 106 mmol/L (98-107); Estimated Glomerular Filt Rate 49; Glucose 128 mg/dL (65-110); Potassium 4.1 mmol/L (3.4-5.0); Sodium 139 mmol/L (137-145)
== END 2022-02-28 07:06 | disposition home or self-care (01) ==
LOC: ANHLAB 07:07
PROVIDERS: PCP Family Medicine; Visit Provider Physician Assistant
DX: E87.5 Hyperkalemia (principal)
CPT/HCPCS: 36415; 80048

== ENCOUNTER 2022-07-05 16:33 | Outpatient (CLI) | payer MEDICARE, SELFPAY ==
--- NOTE | ~2022-07-05 | XR_ITS ---
EXAMINATION: XR lumbar spine min 4V DATE: 07/05/2022 17:10 INDICATION: Low back pain, unspecified. TECHNIQUE: 5 views of lumbar spine were obtained. COMPARISON: Lumbar spine radiographs 03/06/2021 FINDINGS: There is 8 degrees levocurvature of thoracolumbar spine. There is mild chronic anterior wed ging of T12 vertebral body. There is mildly decreased disc height at L1-L2. There are endplate osteop hytes at most levels. There is multilevel mild facet joint osteoarthritis. IMPRESSION: 1. Mild lumbar spondylosis. Reviewed, dictated and finalized at location A. IMPRESSION: 1. Mild lumbar spondylosis.
--- NOTE | ~2022-07-05 | XR_ITS ---
EXAMINATION: XR abdomen/kub 1V DATE: 07/05/2022 17:10 INDICATION: Right-sided low back pain. TECHNIQUE: A supine view of the abdomen on 2 radiographs was obtained. COMPARISON: CT abdomen and pelvis 03/15/2009 FINDINGS: There are no dilated loops of bowel. There are phleboliths in the pelvis. There is no visib le urolithiasis. IMPRESSION: 1. Normal bowel gas pattern. Reviewed, dictated and finalized at location A.
== END 2022-07-05 16:34 | disposition home or self-care (01) ==
LOC: ANHIMG 16:37
PROVIDERS: PCP Family Medicine; Visit Provider Physician Assistant
DX: R10.9 Unspecified abdominal pain (principal); M47.896 Other spondylosis, lumbar region
CPT/HCPCS: 72110; 74018

== ENCOUNTER 2022-07-21 16:19 | Outpatient (CLI) | payer MEDICARE, SELFPAY ==
--- NOTE | ~2022-07-21 | CT_ITS ---
EXAMINATION: CT abdomen pelvis wo con DATE: 07/21/2022 16:39 INDICATION: Right lower quadrant abdominal pain TECHNIQUE: Computed tomography (CT) of the abdomen and pelvis was performed without intravenous contr ast. Automated exposure control and iterative reconstruction technique were employed. Exam dose: 666 .34 mGy-cm total exam DLP. COMPARISON: 07/05/2022 KUB 03/15/2019 CT abdomen pelvis with IV contrast material FINDINGS: Emphysematous changes are noted in the lower lung zones. Minimal basilar atelectasis. Cari l heart size. No pericardial or pleural effusion. Status post cholecystectomy. No hepatic space-occupying mass lesion is evident. No bile duct or pancr eatic duct dilatation, pancreatic mass lesion or calcification. There are calcified splenic granuloma s. Normal splenic size. Normal morphology of the adrenal glands. Exophytic approximately 12 bilateral lower pole left renal cyst. Bilateral renal artery calcification s. There is prominent abdominal aortic calcification and prominent celiac and superior mesenteric art lary calcifications in addition to inferior mesenteric artery calcification. No abdominal aortic aneur ysm. Prominent calcification of the iliac and femoral arteries. No intraperitoneal or retroperitoneal or pelvic mass lesion or adenopathy or ascites. There is prominent prostate enlargement and associated moderate diffuse thickening of the urinary isaac dder wall consistent with some bladder outlet obstruction. Mild prostate calcification. Small fat-containing inguinal hernias. There are numerous diverticula of the sigmoid and descending colon; no CT evidence of diverticulitis. Status post right colectomy. No bowel obstruction or intraperitoneal free air. No suspicious osteolytic or osteoblastic lesions are noted. IMPRESSION: Status post right colectomy Diverticulosis of the left colon; no CT evidence of diverticulitis. Prostate enlargement Emphysema Status post cholecystectomy Reviewed, dictated and finalized at Location A. Reviewed, dictated and finalized at location B. T CRUSHER
[2022-07-21 18:01] LABS: Add Urine Microscopic? NO; Appearance Urine Clear (Clear); Bilirubin Urine Negative (Negative); Blood Urine Negative (Negative); Color Urine Yellow (Yellow); Glucose Urine UA Negative (Negative); Ketones Urine Negative (Negative); Leukocyte Esterase Ur Negative LEU/UL (NEGATIVE); Nitrate Urine Negative (Negative); Protein Urine Negative (Negative); Urobilinogen Urine 0.2 mg/dL (<2.0); pH Urine 6.5 (5.0-9.0)
== END 2022-07-21 16:20 | disposition home or self-care (01) ==
PROVIDERS: PCP Family Medicine; Visit Provider Physician Assistant
DX: R10.31 Right lower quadrant pain (principal); Z90.49 Acquired absence of other specified parts of digestive tract; K57.90 Diverticulosis of intestine, part unspecified, without perforation or abscess without bleeding; N40.0 Benign prostatic hyperplasia without lower urinary tract symptoms; J43.9 Emphysema, unspecified
CPT/HCPCS: 74176; 81003; 87086; 87088

== ENCOUNTER 2022-09-06 10:19 | Outpatient (CLI) | payer MEDICARE, SELFPAY ==
[2022-09-06 11:57] LABS: Influenza A QL RT-PCR Negative (Negative); Influenza B QL RT-PCR Negative (Negative); SARS-CoV-2 RNA PCR Negative
== END 2022-09-06 10:20 | disposition home or self-care (01) ==
LOC: ANHLAB 10:23
PROVIDERS: PCP Family Medicine; Visit Provider Physician Assistant
DX: R06.02 Shortness of breath (principal); R05.9 Cough, unspecified; Z20.822 Contact with and (suspected) exposure to COVID-19
CPT/HCPCS: 87636

== ENCOUNTER 2022-12-06 12:33 | Outpatient (CLI) | payer MEDICARE, SELFPAY ==
--- NOTE | ~2022-12-06 | XR_ITS ---
EXAMINATION: XR thoracic spine 3V DATE: 12/06/2022 12:56 INDICATION: Back pain TECHNIQUE: AP, lateral and lateral swimmer's views of the thoracic spine were obtained. COMPARISON: 11/19/2021 FINDINGS: Bone alignment is normal. There is no fracture. The vertebral body heights are maintained. There is moderate loss of intervertebral disc space height throughout the thoracic spine. Small degen erative osteophytes project from the anterior endplates of multiple vertebral bodies. IMPRESSION: 1. Moderate thoracic spondylosis without acute findings. Reviewed, dictated and finalized at location F.
--- NOTE | ~2022-12-06 | XR_ITS ---
EXAMINATION:XR_CERV2-3V_CR DATE: 12/06/2022 12:56 INDICATION: Neck pain TECHNIQUE: AP, lateral, and odontoid views of the cervical spine are provided. COMPARISON: 10/19/2021 FINDINGS: Alignment is normal. The odontoid process is intact. No fracture is identified. The vertebr al body heights are maintained. There is unchanged moderate loss of intervertebral disc space height at C4-5, C5-6, and C6-7. Small degenerative osteophytes project from the anterior endplates of multip le vertebral bodies. There is multilevel moderate to severe facet and uncovertebral joint osteoarthri tis. Surgical clips are noted in the left neck. Prevertebral soft tissues are normal. IMPRESSION: 1. Moderate cervical spondylosis without acute findings or significant interval change. Reviewed, dictated and finalized at location F.
== END 2022-12-06 12:34 | disposition home or self-care (01) ==
PROVIDERS: PCP Family Medicine; Visit Provider Physician Assistant
DX: M47.812 Spondylosis without myelopathy or radiculopathy, cervical region (principal); M54.2 Cervicalgia; G89.29 Other chronic pain; M47.814 Spondylosis without myelopathy or radiculopathy, thoracic region
CPT/HCPCS: 72040; 72072

== ENCOUNTER 2022-12-12 09:37 | Outpatient (NON) | payer MEDICARE, SELFPAY | END 2022-12-12 09:38 | disposition home or self-care (01) | LOC: ANHLAB 12-14 09:40 | PROVIDERS: PCP Family Medicine; Visit Provider Nurse Practitioner | DX: C44.41 Basal cell carcinoma of skin of scalp and neck (principal) | CPT/HCPCS: 88305 ==

== ENCOUNTER 2023-01-16 11:11 | Outpatient (NON) | payer MEDICARE, SELFPAY | END 2023-01-16 11:12 | disposition home or self-care (01) | LOC: ANHLAB 11:11 | PROVIDERS: PCP Family Medicine; Visit Provider Nurse Practitioner | DX: C44.41 Basal cell carcinoma of skin of scalp and neck (principal) | CPT/HCPCS: 88305; 88331 ==

== ENCOUNTER 2023-03-18 15:02 | Emergency (ER) | payer MEDICARE, SELFPAY ==
--- NOTE | ~2023-03-18 | XR_ITS ---
EXAMINATION: XR toe 2nd RT min 2V DATE: 03/18/2023 18:31 INDICATION: Right second toe injury and swelling. TECHNIQUE: 4 views of right second toe were obtained. COMPARISON: None. FINDINGS: Bone alignment is normal. No fracture. There is mild osteoarthritis of second proximal inte rphalangeal joint and moderate osteoarthritis of distal interphalangeal joint. IMPRESSION: 1. Polyarticular osteoarthritis. Reviewed, dictated and finalized at location E.
[2023-03-18 15:09] VITALS: BP 148/54; PULSE 85; RESP 18; TEMP 36.8; O2SAT 94
--- NOTE | 2023-03-18 18:14 | ED.EXTPRO ---
HPI - Extremity Problem General Chief complaint: Extremity Problem,Nontraumatic Stated complaint: R foot 2nd toe turning black Time Seen by Provider: 03/18/23 15:21 Source: patient Mode of arrival: ambulatory Limitations: no limitations History of Present Illness HPI Narrative: This is an 82-year-old male that presents to the emergency department for right toe redness noted since yesterday. Reports redness and mild swelling noted to the toe. Also reports some bruising. No known injuries to the area. Does not report that it is overtly painful. Denies decreased range of motion or numbness. Related Data Home Medications Medication Instructions Recorded Confirmed aspirin 81 mg tablet,delayed 81 mg PO DAILY 10/16/19 02/27/23 release (Adult Aspirin Regimen) clopidogrel 75 mg tablet 75 mg PO DAILY 08/12/21 02/27/23 Allergies Allergy/AdvReac Type Severity Reaction Status Date / Time No Known Allergies Allergy Verified 02/27/23 09:36 Review of Systems Review of Systems: CONSTITUTIONAL: Denies fever SKIN: Denies rash MUSCULOSKELETAL: Denies joint pain, or myalgia. 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 History of colon cancer History of colorectal cancer History of high cholesterol HTN (hypertension) Hypertensive heart disease without heart failure Mixed hyperlipidemia Type 2 diabetes mellitus with diabetic peripheral angiopathy without gangrene Type 2 diabetes mellitus with other diabetic kidney complication Surgical History Surgical History H/O heart artery stent x3 History of colon surgery Hx of cataract extraction Hx of cholecystectomy S/P carotid endarterectomy on the right Family History Family History Mother Cerebrovascular accident Family history of coronary artery disease Sibling Family history of coronary artery disease Other Hypertension Other Diabetes mellitus Other Family history of cardiovascular disease Social History Social History Social History: , quit smoking in 2006. His brother is a durable attorney at law for healthcare. The patient desires to be a full code. He has 1 son. 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 HEAD: Normocephalic, atraumatic. EYES: EOMI. CHEST: Clear to auscultation. No respiratory distress. No wheezes rales or rhonchi HEART: Regular rate and rhythm. No murmur heard. Normal peripheral pulses. EXTREMITIES: Normal range of motion. Mild edema about the right 2nd toe with bruising and redness. Normal DP pulse. Normal sensation SKIN: Warm, dry, no rash. NEURO: No focal deficits. Alert and oriented x3. PSYCH: Normal mood and affect Course Course Emergency Course: Patient was updated on work-up and agrees with plan of care Vital Signs Vital signs: Vital Signs Temperature 98.3 F 03/18/23 15:09 Pulse R
[2023-03-18 19:03] VITALS: BP 152/69; PULSE 80; RESP 20; O2SAT 94
[2023-03-18 19:24] LABS: Basophils Absolute Auto 0.1 K/mm3 (0.0-0.1); Basophils Percent Auto 0.8 % (0.2-1.2); Eosinophils Absolute Auto 0.2 K/mm3 (0-0.3); Eosinophils Percent Auto 2.5 % (0-4.4); Hematocrit 49.2 % (42.0-52.0); Hemoglobin 15.7 g/dL (14.0-18.0); Immature Granulocyte Absolute 0.02 K/mm3 (0.00-0.031); Immature Granulocyte Percent A 0.2 % (0-0.5); Lymphocytes Absolute Auto 2.19 K/mm3 (0.9-3.2); Lymphocytes Percent Auto 24.7 % (18.3-44.2); Mean Corpuscular HGB Conc 31.9 g/dl (32-36); Mean Corpuscular Hemoglobin 28.5 pg (26-34); Mean Corpuscular Volume 89.3 fl (80-100); Mean Platelet Volume 10.5 fl (7.4-10.4); Monocytes Absolute Auto 0.8 K/mm3 (0.1-0.6); Monocytes Percent Auto 9.4 % (2.6-8.5); Neutrophils Absolute Auto 5.5 K/mm3 (1.3-6.7); Neutrophils Percent Auto 62.4 % (45.5-73.1); Platelet Count Result 300 k/mm3 (150-375); Red Blood Count 5.51 M/mm3 (4.6-6.20); White Blood Count 8.9 K/mm3 (4.5-10.0)
[2023-03-18 19:38] LABS: Anion Gap 10 mmol/L (8-16); Blood Urea Nitrogen 34 mg/dL (9-20); CRP < 0.5 mg/dL (<1.0); Calcium 9.8 mg/dL (8.4-10.2); Carbon Dioxide 28 mmol/L (22-30); Chloride 102 mmol/L (98-107); Estimated CRCL calculation 31 ml/min; Estimated Glomerular Filt Rate 39; Glucose 119 mg/dL (65-110); Sodium 140 mmol/L (137-145)
[2023-03-18 20:00] LABS: Erythrocyte Sedimentation Rate 4 mm/hr (0-20)
== END 2023-03-18 20:30 | disposition home or self-care (01) ==
PROVIDERS: Emergency Provider Physician Assistant; PCP Family Medicine
DX: L03.031 Cellulitis of right toe (principal); I13.10 Hypertensive heart and chronic kidney disease without heart failure, with stage 1 through stage 4 chronic kidney disease, or unspecified chronic kidney disease; E11.22 Type 2 diabetes mellitus with diabetic chronic kidney disease; N18.30 Chronic kidney disease, stage 3 unspecified; E78.2 Mixed hyperlipidemia; Z87.891 Personal history of nicotine dependence
CPT/HCPCS: 36415; 73660; 80048; 85025; 85652; 86140; 99283

== ENCOUNTER 2023-08-23 09:41 | Observation (INO) | payer MEDICARE, SELFPAY ==
[2023-08-23] VITALS (22 sets, daily range): BP systolic 100–185; BP diastolic 39–71; PULSE 52–135; RESP 10–26; TEMP 36.3–36.5; O2SAT 91–99; BMI 30.9
--- NOTE | ~2023-08-23 | US_ITS ---
EXAMINATION: US renal BI DATE: 08/24/2023 15:09 INDICATION: Acute on chronic kidney failure TECHNIQUE: Multiple grayscale and Doppler ultrasound images of the kidneys were obtained. COMPARISON: None. FINDINGS: The right kidney measures 12.5 x 4.3 x 5.5 cm. The left kidney measures 11.3 x 5.8 x 4.5 cm and contains a 1.5 cm cyst in the lower pole. The kidneys demonstrate normal parenchymal echogenicit y. There is no hydronephrosis. The bladder is decompressed by Martinez catheter. IMPRESSION: 1. Unremarkable kidneys without hydronephrosis. Reviewed, dictated and finalized at location L. UTER SYSTEMS MANAGER
--- NOTE | ~2023-08-23 | XR_ITS ---
EXAMINATION: XR chest 1V portable DATE: 08/23/2023 17:42 INDICATION: Cough. TECHNIQUE: A single frontal view of the chest was obtained. COMPARISON: Chest 2 views 11/19/2021, CT abdomen and pelvis 07/21/2022 FINDINGS: There is mild atelectasis versus scarring at the lung bases. No pleural effusion or pneumot horax. The heart size is normal. There are surgical clips in left neck. IMPRESSION: 1. Mild atelectasis versus scarring at the lung bases. Reviewed, dictated and finalized at location E. ER GUARD
--- NOTE | 2023-08-23 09:54 | ECG_ITS ---
Measurements Intervals [place] Rate: 62 P: CT: 224 QRS: -55 QRSD: 103 T: 106 QT: 418 QTc: 425 Interpretive Statements SINUS RHYTHM LEFT AXIS DEVIATION INCOMPLETE RIGHT BUNDLE BRANCH BLOCK LEFT VENTRICULAR HYPERTROPHY AND ST-T CHANGE POSSIBLE SEPTAL MYOCARDIAL INFARCTION , OF INDETERMINATE AGE ABNORMAL ECG COMPARED TO ECG 03/06/2021 13:12:23 INCOMPLETE RIGHT BUNDLE-BRANCH BLOCK NOW PRESENT LEFT VENTRICULAR HYPERTROPHY NOW PRESENT ST (T WAVE) DEVIATION NOW PRESENT Electronically Signed On 08-23-2023 15:58:07 ENVIRONMENTAL FIELD TEAM MEMBER by Samuel Granados M.D.
[2023-08-23 10:13] LABS: Basophils Percent Auto 0.5 % (0.2-1.2); Eosinophils Absolute Auto 0.1 K/mm3 (0-0.3); Eosinophils Percent Auto 1.4 % (0-4.4); Hematocrit 38.8 % (42.0-52.0); Hemoglobin 12.5 g/dL (14.0-18.0); Immature Granulocyte Absolute 0.02 K/mm3 (0.00-0.031); Immature Granulocyte Percent A 0.2 % (0-0.5); Lymphocytes Absolute Auto 3.02 K/mm3 (0.9-3.2); Mean Corpuscular HGB Conc 32.2 g/dl (32-36); Mean Corpuscular Hemoglobin 27.8 pg (26-34); Mean Corpuscular Volume 86.4 fl (80-100); Mean Platelet Volume 10.7 fl (7.4-10.4); Monocytes Absolute Auto 0.8 K/mm3 (0.1-0.6); Monocytes Percent Auto 9.6 % (2.6-8.5); Neutrophils Absolute Auto 4.6 K/mm3 (1.3-6.7); Neutrophils Percent Auto 53.3 % (45.5-73.1); Platelet Count Result 238 k/mm3 (150-375); Red Blood Count 4.49 M/mm3 (4.6-6.20); Red Cell Distribution Width 14.4 % (11.5-14.5); White Blood Count 8.6 K/mm3 (4.5-10.0)
--- NOTE | 2023-08-23 10:17 | ED.URI ---
HPI - URI/Sore Throat General Chief Complaint: Upper Respiratory Infection Stated Complaint: I have COVID Time Seen by Provider: 08/23/23 10:01 Source: patient History of Present Illness HPI Narrative: 83 yo who was diagnosed with COVID 08/21/23 on a home test. He was feeling dizzy and weak. His PCP Dr Lott called him in a prescription for paxlovid which he started taking 08/21/23. Lives by himself. He continues to have muscle weakness but denies any pain. No fevers or cough. He feels congested. Denies any underlying kidney or liver conditions. Related Data Home Medications Medication Instructions Recorded Confirmed aspirin 81 mg tablet,delayed 81 mg PO DAILY 10/16/19 08/23/23 release (Adult Aspirin Regimen) clopidogrel 75 mg tablet 75 mg PO DAILY 08/12/21 08/23/23 irbesartan 300 mg tablet 300 mg PO DAILY 08/23/23 08/23/23 lorazepam 0.5 mg tablet 0.5 mg PO Q12H PRN anxiety 08/23/23 08/23/23 nifedipine 60 mg tablet,extended 60 mg PO DAILY 08/23/23 08/23/23 release pantoprazole 40 mg tablet,delayed 40 mg PO Q12H 08/23/23 08/23/23 release polysaccharide iron complex 150 mg 150 mg PO 1400 08/23/23 08/23/23 iron capsule clonidine HCl 0.1 mg tablet 0.1 mg PO USEASDIRECTD 08/24/23 08/24/23 Allergies Allergy/AdvReac Type Severity Reaction Status Date / Time No Known Allergies Allergy Verified 08/23/23 18:21 [facility] Past Medical History Medical History (Updated 08/31/23 @ 18:50 by July Meade MD) Carotid artery stenosis Chronic kidney disease, stage 3 Colorectal cancer Coronary artery disease Diabetic neuropathy Gastroesophageal reflux disease Hypertension Mixed hyperlipidemia Peripheral vascular disease Renal artery stenosis Type 2 diabetes mellitus Surgical History Surgical History (Updated 08/23/23 @ 17:05 by Francia Sebastian PA-C) History of cataract extraction History of cholecystectomy History of colon surgery History of coronary artery stent placement History of right-sided carotid endarterectomy Family History Family History Mother Family history of coronary artery disease Cerebrovascular accident Sibling Family history of coronary artery disease Other Hypertension Other Diabetes mellitus Father Diabetes mellitus Other Family history of cardiovascular disease Social History Social History (Updated 08/23/23 @ 17:07 by Francia Sebastian PA-C) Social History: Surrogate medical decision maker: Cassius Pérez, brother. Code status: Full code. Smoking packs per day: 2 Smoking cigarettes per day: 40.0 Years smoked: 57 Smoking pack-years: 114.00 Smoking status: Former smoker Tobacco type: cigarettes Second hand tobacco smoke exposure: No Alcohol intake: never Substance use: never Substance use type: does not use Do You Feel Safe in your Home?: Yes Lack of Transportation: No Lack of Food: Never True Current Housing: I Have Housing Concerned About Future Housing: No Difficulty Paying Gas/Electric Bills: No Difficulty Paying for Meds: No Currently Unemployed: No Education: High School Diploma/GED Difficulty w/ Childcare or Family Care: No Living arrangements: alone Additional living arrangements comments: Lives in [place]. . Has 1 son. 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 Spiritual care concerns: No Exam Narrative: GENERAL: Well-appearing, well-nourished, and in no acute distress. HEAD: Normocephalic, atraumatic. EYES: Non injected, non icteric ENT: Nares clear, no rhinorrhea or epistaxis. Dry mucous membranes. NECK: Supple. CHEST: Clear to auscultation. No respiratory distress. HEART: Regular rate and rhythm. . ABDOMEN: Soft, nondistended. EXTREMITIES: Normal range of motion. No edema. Mild calf tenderness to palpation bilaterally.
[2023-08-23 10:33] LABS: Alanine Aminotransferase 17 U/L (6-50); Albumin Level 3.9 g/dL (3.5-5.1); Alkaline Phosphatase 87 U/L (38-126); Anion Gap 11 mmol/L (8-16); Aspartate Amino Transferase 26 U/L (17-59); Blood Urea Nitrogen 45 mg/dL (9-20); Calcium 8.3 mg/dL (8.4-10.2); Carbon Dioxide 21 mmol/L (22-30); Chloride 101 mmol/L (98-107); Estimated CRCL calculation 18 ml/min; Estimated Glomerular Filt Rate 21; Glucose 93 mg/dL (65-110); Sodium 133 mmol/L (137-145)
[2023-08-23] MEDS: LACTATED RINGERS 1,000 ML 999 ML IV CONT (10:36)
[2023-08-23 10:49] LABS: Potassium 3.3 mmol/L (3.4-5.0)
[2023-08-23 10:54] LABS: Creatine Kinase 384 U/L (55-170)
[2023-08-23 13:08] LABS: Anion Gap 11 mmol/L (8-16); Blood Urea Nitrogen 43 mg/dL (9-20); Calcium 8.7 mg/dL (8.4-10.2); Carbon Dioxide 23 mmol/L (22-30); Chloride 101 mmol/L (98-107); Estimated CRCL calculation 20 ml/min; Estimated Glomerular Filt Rate 24; Glucose 103 mg/dL (65-110); Potassium 3.6 mmol/L (3.4-5.0); Sodium 135 mmol/L (137-145)
[2023-08-23] MEDS: POTASSIUM PHOS/SODIUM PHOS 250 MG TABLET PO (13:49)
[2023-08-23 15:10] LABS: Influenza A QL RT-PCR Negative (Negative); Influenza B QL RT-PCR Negative (Negative); SARS-CoV-2 RNA PCR Positive (Negative)
--- NOTE | 2023-08-23 15:50 | PC.NURSE ---
This patient, Enzo Pérez, was admitted to 3 [facility] Surg Room 302-01. Patient/family oriented to hospital policies and general routines including ID bracelet, bed and alarms, visiting hours, pain management, procedures, bathroom and other care routines, personal items, smoking policy, room service/diet, and visiting hours. Information on how to activate the Rapid Response Team has been discussed. Patient/Family are encouraged to report perceived risks to care and to ask questions if they do not understand what they are told or what they should do.
[2023-08-23 16:47] LABS: Glucose Point of Care 107 mg/dl (65-105)
--- NOTE | 2023-08-23 17:01 | PM.IMHP ---
H&P: HPI History of Present Illness Date/Time: 08/23/23 17:00 Chief Complaint: Weak and dizzy, COVID positive. Narrative: This is a very pleasant 83-year-old gentleman with hypertension, hyperlipidemia, peripheral vascular disease, renal artery stenosis, coronary artery disease, obstructive sleep apnea, benign prostatic hyperplasia who presented to the emergency department for evaluation of weakness and dizziness. The patient provides the following history. Over the last week or so he has developed upper respiratory symptoms to include sinus congestion, rhinorrhea, and dry cough. He tested positive for COVID on 08/21/2023 and was started on Paxlovid per his primary care physician that same day. He seems to be getting worse rather than better and he is feeling weak and dizzy with position changes. He has not run a fever to his knowledge and he denies chills and sweats. He also denies chest and pleuritic pain, shortness of breath, vomiting, and diarrhea. He was afebrile on arrival to the ED with stable vital signs. Labs were significant for a sodium of 133, potassium 3.3, BUN 45, creatinine 2.90, CK 384. His potassium was replaced and he was hydrated with IV crystalloids however repeat creatinine was not significantly improved and he is being admitted in this setting. Not long after he got to the floor he started to complain that he was having difficulties urinating so a Martinez catheter was inserted which yielded over 1.5 L of urine. He reports feeling a lot better at this time and has no current complaints. Review of Systems Review of Systems: Twelve systems were reviewed and are negative except for as per HPI. [facility] Past Medical History Medical History (Updated 08/23/23 @ 23:21 by Francia Sebastian PA-C) Carotid artery stenosis Chronic kidney disease, stage 3 Colorectal cancer Coronary artery disease Diabetic neuropathy Gastroesophageal reflux disease Hypertension Mixed hyperlipidemia Peripheral vascular disease Renal artery stenosis Type 2 diabetes mellitus Surgical History Surgical History (Updated 08/23/23 @ 17:05 by Francia Sebastian PA-C) History of cataract extraction History of cholecystectomy History of colon surgery History of coronary artery stent placement History of right-sided carotid endarterectomy Family History Family History Mother Family history of coronary artery disease Cerebrovascular accident Sibling Family history of coronary artery disease Other Hypertension Other Diabetes mellitus Father Diabetes mellitus Other Family history of cardiovascular disease Social History Social History (Updated 08/23/23 @ 17:07 by Francia Sebastian PA-C) Social History: Surrogate medical decision maker: Cassius Pérez, brother. Code status: Full code. Smoking packs per day: 2 Smoking cigarettes per day: 40.0 Years smoked: 57 Smoking pack-years: 114.00 Smoking status: Former smoker Tobacco type: cigarettes Second hand tobacco smoke exposure: No Alcohol intake: never Substance use: never Substance use type: does not use Do You Feel Safe in your Home?: Yes Lack of Transportation: No Lack of Food: Never True Current Housing: I Have Housing Concerned About Future Housing: No Difficulty Paying Gas/Electric Bills: No Difficulty Paying for Meds: No Currently Unemployed: No Education: High School Diploma/GED Difficulty w/ Childcare or Family Care: No Living arrangements: alone Additional living arrangements comments: Lives in [place]. . Has 1 son. 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 Spiritual care concerns: No Meds Home Medications and Allergies Home Medications Medication Instructions Recorded Confirmed Type aspirin 81 mg tablet,delayed 81 mg PO DAILY 10/16/19 08/23/23
[2023-08-23] MEDS: LACTATED RINGERS 1,000 ML 125 ML IV CONT (17:11)
[2023-08-23] MEDS: cloNIDine HCL 0.2 MG TABLET PO (22:02)
[2023-08-23] MEDS: PANTOPRAZOLE 40 MG TABLET PO (22:02)
[2023-08-23] MEDS: REMDESIVIR 200 MG/NS 250 ML 200 MG/250 ML BAG 250 MG IVPB (22:02)
[2023-08-23] MEDS: GABAPENTIN 100 MG CAPSULE PO (22:02)
[2023-08-23 22:11] LABS: Prothrombin Time 13.6 Seconds (11.1-14.7)
[2023-08-24] MEDS: LACTATED RINGERS 1,000 ML 125 ML IV CONT ×2 (00:31→05:10)
[2023-08-24 05:23] VITALS: BP 150/59; PULSE 76; RESP 16; TEMP 36.3; O2SAT 94
[2023-08-24 06:29] LABS: Hemoglobin 13.5 g/dL (14.0-18.0); Mean Corpuscular HGB Conc 31.4 g/dl (32-36); Mean Corpuscular Hemoglobin 27.5 pg (26-34); Mean Corpuscular Volume 87.6 fl (80-100); Mean Platelet Volume 11.7 fl (7.4-10.4); Platelet Count Result 249 k/mm3 (150-375); Red Blood Count 4.91 M/mm3 (4.6-6.20); Red Cell Distribution Width 14.4 % (11.5-14.5); White Blood Count 6.1 K/mm3 (4.5-10.0)
[2023-08-24 06:44] LABS: Alanine Aminotransferase 14 U/L (6-50); Albumin Level 3.7 g/dL (3.5-5.1); Alkaline Phosphatase 75 U/L (38-126); Anion Gap 6 mmol/L (8-16); Aspartate Amino Transferase 30 U/L (17-59); Bilirubin,Total 0.8 mg/dL (0.2-1.3); Blood Urea Nitrogen 32 mg/dL (9-20); CRP 3.3 mg/dL (<1.0); Carbon Dioxide 27 mmol/L (22-30); Chloride 104 mmol/L (98-107); Creatine Kinase 295 U/L (55-170); Estimated CRCL calculation 29 ml/min; Estimated Glomerular Filt Rate 36; Glucose 100 mg/dL (65-110); Lactate Dehydrogenase 217 U/L (120-246); Magnesium 1.8 mg/dL (1.6-2.3); Potassium 3.8 mmol/L (3.4-5.0); Sodium 137 mmol/L (137-145)
[2023-08-24 07:45] LABS: Glucose Point of Care 99 mg/dl (65-105)
[2023-08-24 08:00] VITALS: BP 170/65; PULSE 93; RESP 18; TEMP 37.2; O2SAT 94
[2023-08-24 09:12] VITALS: BP 168/80; BP 180/54; PULSE 103; PULSE 108; RESP 18; RESP 20; O2SAT 94; O2SAT 95
[2023-08-24] MEDS: NIFEdipine 30 MG TAB.ER.24 60 MG PO (09:19)
[2023-08-24] MEDS: ENOXAPARIN 30 MG/0.3 ML SYRINGE SUB-Q (09:19)
[2023-08-24] MEDS: ATORVASTATIN 40 MG TABLET PO (09:20)
[2023-08-24] MEDS: TAMSULOSIN HCL 0.4 MG CAPSULE PO (09:20)
[2023-08-24] MEDS: ASPIRIN 81 MG ENTERIC TABLET PO (09:20)
[2023-08-24] MEDS: CLOPIDOGREL BISULFATE 75 MG TABLET PO (09:20)
[2023-08-24] MEDS: PANTOPRAZOLE 40 MG TABLET PO ×2 (09:20→22:04)
[2023-08-24] MEDS: GABAPENTIN 100 MG CAPSULE PO ×3 (09:20→17:20)
[2023-08-24 11:46] LABS: Glucose Point of Care 108 mg/dl (65-105)
[2023-08-24] MEDS: POLYSACCHARIDE IRON COMPLEX 150 MG CAPSULE PO (12:58)
[2023-08-24 14:00] VITALS: BP 148/60; PULSE 87; RESP 20; TEMP 37.3; O2SAT 95
[2023-08-24 17:10] LABS: Glucose Point of Care 108 mg/dl (65-105)
[2023-08-24] MEDS: cloNIDine HCL 0.1 MG TABLET PO (17:21)
--- NOTE | 2023-08-24 18:47 | PM.IMPN ---
Progress Note: A&P Assessment and Plan (1) Urinary retention: Code(s): R33.9 - Retention of urine, unspecified Status: Acute (2) Elevated CK: Code(s): R74.8 - Abnormal levels of other serum enzymes Status: Acute (3) COVID: Code(s): U07.1 - COVID-19 Status: Acute (4) Acute on chronic renal failure: Code(s): N17.9 - Acute kidney failure, unspecified; N18.9 - Chronic kidney disease, unspecified Status: Acute (5) Coronary artery disease: Code(s): I25.10 - Atherosclerotic heart disease of [place] coronary artery without angina pectoris Status: Acute Plan still not need o2. possibly home tomorrow if stable. cont to trend renal function. voiding trial tomorrow. full code. cont remdesevir Subjective Date/time seen: 08/24/23 18:47 Interval history: naoe. pt is without complaints. Review of Systems Review of Systems: All systems reviewed & are unremarkable except as noted in HPI and below Exam Const: General: comfortable and no acute distress Eyes: Pupils: Equal, round and reactive pupils present Neck: Neck: supple Resp: Effort & Inspection: normal respiratory effort Auscultation: clear to auscultation bilaterally Cardio: Rate: regular rate Rhythm: regular rhythm GI: GI Palp: Yes Soft to palpation and No Tenderness to palpation present (GI) Extrem: General: no edema Objective Data Vital Signs Vital Signs: Vital Signs - 24 hr 08/23/23 20:52 08/23/23 20:00 08/24/23 05:23 Temperature 97.3 F L 97.4 F L Pulse Rate 106 H 76 Respiratory Rate 22 H 16 Blood Pressure 161/61 H 150/59 H Pulse Oximetry 91 91 94 Oxygen Delivery Room Air 08/24/23 08:00 08/24/23 09:12 08/24/23 09:12 Temperature 99.0 F Pulse Rate 93 103 H 108 H Respiratory Rate 18 18 20 Blood Pressure 170/65 H 168/80 H 180/54 H Pulse Oximetry 94 95 94 Oxygen Delivery 08/24/23 14:00 Temperature 99.1 F Pulse Rate 87 Respiratory Rate 20 Blood Pressure 148/60 H Pulse Oximetry 95 Oxygen Delivery Intake/Output Intake/Output: Intake & Output 08/21/23 08/22/23 08/23/23 12/21/23 23:59 23:59 23:59 23:59 Intake Total 6730 1200 Output Total 200 6800 Balance 1290 -2330 Meds/Results Medications: Active Medications Generic Name Dose Route Start Last Admin Trade Name Freq PRN Reason Stop Dose Admin Acetaminophen 650 mg 08/23/23 14:40 Acetaminophen 325 Mg Tablet PO Q4H PRN Mild Pain (1-3) or Fever Aspirin 81 mg 08/24/23 09:00 08/24/23 09:20 Aspirin 81 Mg Enteric Tablet PO 81 mg DAILY CHAPARRO Administration Atorvastatin Calcium 40 mg 08/24/23 09:00 08/24/23 09:20 Atorvastatin 40 Mg Tablet PO 40 mg DAILY CHAPARRO Administration Clonidine HCl 0.2 mg 08/24/23 21:00 Clonidine Hcl 0.2 Mg Tablet PO Q12HR CHAPARRO Clonidine HCl 0.1 mg 08/24/23 17:05 08/24/23 17:21 Clonidine Hcl 0.1 Mg Tablet PO 0.1 mg DAILY@1700 CHAPARRO Administration Clopidogrel Bisulfate 75 mg 08/24/23 09:00 08/24/23 09:20 Clopidogrel Bisulfate 75 Mg Tablet PO 75 mg DAILY CHAPARRO Administration Dextrose 12.5 gm 08/23/23 20:47 Dextrose 50% 25 Gm/50 Ml Syringe IV PUSH PRN PRN Hypoglycemia Protocol Enoxaparin Sodium 30 mg 08/24/23 09:00 08/24/23 09:19 Enoxaparin 30 Mg/0.3 Ml Syringe SUB-Q 30 mg DAILY CHAPARRO Administration Gabapentin 100 mg 08/23/23 21:10 08/24/23 17:20 Gabapentin 100 Mg Capsule PO 100 mg TID CHAPARRO Administration Glucagon 1 mg 08/23/23 20:47 Glucagon For Inj 1 Mg Vial IM PRN PRN Hypoglycemia Protocol Glucose 15 gm 08/23/23 20:47 Glucose Oral Gel 15 Gm Of Glucse In 37.5 Gm Tube PO PRN PRN Hypoglycemia Protocol Dextrose 1,000 mls @ 100 mls/hr 08/23/23 20:47 Dextrose 5% 1,000 Ml IVPB PRN PRN Hypoglycemia Protocol Remdesivir 100 mg in 250 mls @ 250 mls/hr 08/24/23 22:00 IVPB 08/27/23 22:59 Q24H CHAPARRO
[2023-08-24 20:00] VITALS: O2SAT 93
[2023-08-24 21:34] LABS: Glucose Point of Care 99 mg/dl (65-105)
[2023-08-24 22:00] VITALS: BP 160/56; PULSE 71; RESP 18; TEMP 37.1; O2SAT 93
[2023-08-24] MEDS: cloNIDine HCL 0.2 MG TABLET PO (22:04)
[2023-08-24] MEDS: REMDESIVIR 100 MG/NS 250 ML 100 MG/250 ML BAG 250 MG IVPB (22:04)
[2023-08-25 06:00] VITALS: BP 160/59; PULSE 80; RESP 16; TEMP 36.7; O2SAT 96
[2023-08-25 07:22] LABS: Basophils Absolute Auto 0.1 K/mm3 (0.0-0.1); Basophils Percent Auto 0.4 % (0.2-1.2); Eosinophils Absolute Auto 0.1 K/mm3 (0-0.3); Eosinophils Percent Auto 0.7 % (0-4.4); Hematocrit 46.5 % (42.0-52.0); Hemoglobin 14.6 g/dL (14.0-18.0); Immature Granulocyte Absolute 0.04 K/mm3 (0.00-0.031); Immature Granulocyte Percent A 0.4 % (0-0.5); Lymphocytes Absolute Auto 4.62 K/mm3 (0.9-3.2); Mean Corpuscular HGB Conc 31.4 g/dl (32-36); Mean Corpuscular Hemoglobin 27.7 pg (26-34); Mean Corpuscular Volume 88.2 fl (80-100); Monocytes Percent Auto 9.1 % (2.6-8.5); Neutrophils Absolute Auto 5.5 K/mm3 (1.3-6.7); Neutrophils Percent Auto 48.4 % (45.5-73.1); Platelet Count Result 280 k/mm3 (150-375); Red Blood Count 5.27 M/mm3 (4.6-6.20); Red Cell Distribution Width 14.4 % (11.5-14.5); White Blood Count 11.3 K/mm3 (4.5-10.0)
[2023-08-25 07:31] LABS: Alanine Aminotransferase 16 U/L (6-50); Albumin Level 4.2 g/dL (3.5-5.1); Alkaline Phosphatase 83 U/L (38-126); Anion Gap 9 mmol/L (8-16); Aspartate Amino Transferase 29 U/L (17-59); Bilirubin,Total 0.9 mg/dL (0.2-1.3); Blood Urea Nitrogen 22 mg/dL (9-20); Calcium 9.5 mg/dL (8.4-10.2); Carbon Dioxide 29 mmol/L (22-30); Chloride 102 mmol/L (98-107); Creatine Kinase 170 U/L (55-170); Estimated CRCL calculation 37 ml/min; Estimated Glomerular Filt Rate 49; Glucose 108 mg/dL (65-110); Magnesium 1.7 mg/dL (1.6-2.3); Sodium 140 mmol/L (137-145)
[2023-08-25 07:49] LABS: Glucose Point of Care 119 mg/dl (65-105)
[2023-08-25 08:05] LABS: Procalcitonin 0.1 ng/mL
[2023-08-25 08:06] LABS: Prothrombin Time 13.7 Seconds (11.1-14.7)
[2023-08-25] MEDS: NIFEdipine 30 MG TAB.ER.24 60 MG PO (08:23)
[2023-08-25] MEDS: ASPIRIN 81 MG ENTERIC TABLET PO (08:23)
[2023-08-25] MEDS: ATORVASTATIN 40 MG TABLET PO (08:23)
[2023-08-25] MEDS: TAMSULOSIN HCL 0.4 MG CAPSULE PO (08:23)
[2023-08-25] MEDS: CLOPIDOGREL BISULFATE 75 MG TABLET PO (08:24)
[2023-08-25] MEDS: PANTOPRAZOLE 40 MG TABLET PO (08:24)
[2023-08-25] MEDS: GABAPENTIN 100 MG CAPSULE PO ×2 (08:24→13:06)
[2023-08-25] MEDS: cloNIDine HCL 0.2 MG TABLET PO (08:24)
[2023-08-25 08:25] VITALS: O2SAT 94
[2023-08-25] MEDS: ENOXAPARIN 30 MG/0.3 ML SYRINGE SUB-Q (08:31)
--- NOTE | 2023-08-25 10:40 | PM.DS ---
DS: Admitting Diagnosis Discharge Date 08/25/23 Admitting Diagnosis weakness/dizziness DS: Discharge Diagnosis Discharge Diagnosis (1) COVID: Code(s): U07.1 - COVID-19 Status: Acute (2) Dizziness: Code(s): R42 - Dizziness and giddiness Status: Acute DS: Summary Hospital Course Hospital Course: Mr. Pérez is a very pleasant 83M w/ PMH HTN, HLD, PVD, renal artery stenosis, CKD, CAD, LOPEZ, BPH who presented with weakness and dizziness. Last week he developed cough, rhinorrhea and sinus congestion, he tested positive for COVID on 08/21/23 and was started on Paxlovid that day via PCP. He subsequently felt worse, becoming weak and dizzy. He was admitted for this and started on Remdesevir while Paxlovid was stopped. His CPK on admission. The patient improved, walking in his room without assistance, and having no dizziness or weakness. He is physically stable for d/c home on 08/25 in spite of a mild elevated white count at 11.3. I encouraged the patient to stay to trend this, although his procal is low. He declined and at best agreed to have repeat cbc in 2-3 days and f/u within a week with his primary care physician. He as well knows if he has return of any symptoms or new symptoms to return to ER immediately. Considering he improved greatly upon discontinuation of paxlovid and his CPK rapidly resolved, his symptoms were likely due to iatrogenic effects. He will continue his usual home meds except for the recently prescribed Paxlovid. More than 30 minutes spent on discharge planning and documentation. Time Spent with Patient Time attestation: Total time spent providing and/or coordinating discharge services: Exam Const: General: cooperative and no acute distress Resp: Effort & Inspection: normal respiratory effort Auscultation: clear to auscultation bilaterally Cardio: Rate: regular rate Rhythm: regular rhythm Heart sounds: S1 normal heart sound present and S2 normal heart sound present GI: GI Palp: No abdominal tenderness Auscultation: normal bowel sounds DS: Data Data Completed and Pending Labs on day of discharge: Labs from last 24 hours 08/25/23 08/25/23 08/24/23 07:32 06:32 21:31 WBC 11.3 H RBC 5.27 Hgb 14.6 Hct 46.5 MCV 88.2 MCH 27.7 MCHC 31.4 L RDW 14.4 Plt Count 280 MPV 11.0 H Immature Gran % (Auto) 0.4 Neut % (Auto) 48.4 Lymph % (Auto) 41.0 Trigg % (Auto) 9.1 H Eos % (Auto) 0.7 Baso % (Auto) 0.4 Lymph # (Auto) 4.62 H Trigg # (Auto) 1.0 H Eos # (Auto) 0.1 Baso # (Auto) 0.1 Abs Immat Gran (auto) 0.04 H Absolute Neuts (auto) 5.5 Absolute Nucleated RBC 0.0 Nucleated RBC % 0.0 PT 13.7 INR 1.0 Sodium 140 Potassium 4.0 Chloride 102 Carbon Dioxide 29 Anion Gap 9 BUN 22 H D Creatinine 1.40 H Estim Creat Clear Calc 37 Estimated GFR 49 L Glucose 108 POC Capillary Glucose 119 H 99 Calcium 9.5 Magnesium 1.7 Total Bilirubin 0.9 Direct Bilirubin 0.0 AST 29 ALT 16 Alkaline Phosphatase 83 Total Creatine Kinase 170 Total Protein 7.0 Albumin 4.2 Procalcitonin 0.1 08/24/23 08/24/23 17:07 11:33 WBC RBC Hgb Hct MCV MCH MCHC RDW Plt Count MPV Immature Gran % (Auto) Neut % (Auto) Lymph % (Auto) Trigg % (Auto) Eos % (Auto) Baso % (Auto) Lymph # (Auto) Trigg # (Auto) Eos # (Auto) Baso # (Auto) Abs Immat Gran (auto) Absolute Neuts (auto) Absolute Nucleated RBC Nucleated RBC % PT INR Sodium Potassium Chloride Carbon Dioxide Anion Gap BUN Creatinine Estim Creat Clear Calc Estimated GFR Glucose POC Capillary Glucose 108 H 108 H Calcium Magnesium Total Bilirubin Direct Bilirubin AST ALT Alkaline Phosphatase Total Creatine Kinase Total Protein Albumin Procalcitonin Discharge Plan Discharge Attending physician on
[2023-08-25 11:50] LABS: Glucose Point of Care 125 mg/dl (65-105)
[2023-08-25] MEDS: POLYSACCHARIDE IRON COMPLEX 150 MG CAPSULE PO (13:08)
[2023-08-25 14:00] VITALS: BP 176/47; PULSE 94; RESP 20; TEMP 36.9; O2SAT 95
== END 2023-08-25 16:40 | disposition home or self-care (01) ==
LOC: ANHED 10:50 → ANH3MEDSUR 15:37
PROVIDERS: Physician Assistant; Admitting Provider General Practice; Emergency Provider Student in an Organized Health Care Education/Training Program; PCP Family Medicine; Visit Provider General Practice
DX: U07.1 COVID-19 (principal); R42 Dizziness and giddiness; N17.9 Acute kidney failure, unspecified; R33.9 Retention of urine, unspecified; E87.6 Hypokalemia; R74.8 Abnormal levels of other serum enzymes; E11.9 Type 2 diabetes mellitus without complications; I10 Essential (primary) hypertension; N40.0 Benign prostatic hyperplasia without lower urinary tract symptoms; I25.10 Atherosclerotic heart disease of native coronary artery without angina pectoris; E78.5 Hyperlipidemia, unspecified; I49.3 Ventricular premature depolarization; I70.1 Atherosclerosis of renal artery; G47.33 Obstructive sleep apnea (adult) (pediatric); E87.1 Hypo-osmolality and hyponatremia; R94.31 Abnormal electrocardiogram [ECG] [EKG]; Z87.891 Personal history of nicotine dependence; Z79.82 Long term (current) use of aspirin; Z79.02 Long term (current) use of antithrombotics/antiplatelets
CPT/HCPCS: 36415; 71045; 76775; 80048; 80053; 80076; 82550; 82728; 82948; 83615; 83735; 84145; 85025; 85027; 85610; 86140; 87636; 93005; 96361; 96365; 96366; 96372; 99285; A9270; G0378; J0248; J1650; J7120

== ENCOUNTER 2024-09-27 14:38 | Emergency (ER) | payer MEDICARE, SELFPAY ==
--- NOTE | ~2024-09-27 | XR_ITS ---
EXAMINATION: XR chest 2V DATE: 09/27/2024 15:10 INDICATION: Shortness of breath. TECHNIQUE: Frontal and lateral views of the chest were obtained. COMPARISON: Chest single view 08/23/2023 FINDINGS: There is mild atelectasis versus scarring at the lung bases. No pleural effusion or pneumot horax. The heart size is normal. There are surgical clips in left neck. IMPRESSION: 1. Mild atelectasis versus scarring at the lung bases. Reviewed, dictated and finalized at location B. RAL PROCESSING TECHNICIAN
--- NOTE | 2024-09-27 14:39 | ECG_ITS ---
Test Date: 2024-09-27 14:52:11 Measurements Intervals Dearing Rate: 97 P: 76 MS: 254 QRS: -53 QRSD: 112 T: 109 QT: 351 QTc: 446 Interpretive Statements SINUS RHYTHM WITH FIRST DEGREE AV BLOCK MARKED LEFT AXIS DEVIATION [QRS AXIS < -30] LEFT VENTRICULAR HYPERTROPHY AND ST-T CHANGE [VOLTAGE CRITERIA PLUS ST/T ABNORMALITY] POSSIBLE SEPTAL MYOCARDIAL INFARCTION , PROBABLY OLD [30 ms Q WAVE IN V1/V2] No previous ECG available for comparison Electronically Signed On 09-27-2024 23:53:41 BACK GRINDER by David Marquis M.D.
[2024-09-27 14:40] VITALS: BP 219/65; PULSE 112; RESP 22; TEMP 36.4; O2SAT 98
--- OUTSIDE RECORDS SUMMARY | 2024-09-27 14:41 | XMS_ITS | Referral Summary ---
Author Organization [facility] Address [address] [place] [address] Care Team Providers Care Rod Greaser Name Role Phone Naveen Lott MD Primary Care Provider [phone] Source Comments [facility],non-owned Affiliates and Associated Physician Practices is amultiple site organization consisting of ambulatory clinics and hospital sitesin [place], [place], [place] and [place]. This disclosure is being madepursuant to the Care Everywhere program and may not contain all information available regarding this patient. Last updated 18.[facility] Allergies No known active allergies Medications * Be aware that medications may not be up to date on this document. Alwaysverify current medications with the patient. Medication Sig Dispensed Refills Start Date End Date Status aspirin (ASPIRIN) 81 MG chew tablet Take 81 mg by mouth Active atorvastatin (LIPITOR) 40 MG tablet Take 40 mg by mouth once daily 08/31/2021 Active cloNIDine (CATAPRES) 0.2 MG tablet Take 0.1 mg by mouth 3 times daily 01/18/2021 Active gabapentin (NEURONTIN) 100 MG capsule Take 100 mg by mouth 3 times daily 09/03/2021 Active irbesartan (AVAPRO) 300 MG tablet Take 300 mg by mouth once daily 09/06/2021 Active metFORMIN (GLUCOPHAGE) 500 MG tablet Take 500 mg by mouth once daily 03/10/2021 Active pantoprazole EC (PROTONIX) 40 MG tablet Take 40 mg by mouth once daily 07/26/2021 Active iron polysaccharides (NIFEREX 150) 150 MG capsule Take 150 mg by mouth once daily 03/06/2021 Active tamsulosin (FLOMAX) 0.4 MG capsule Take 0.4 mg by mouth once daily 08/26/2021 Active Social History Tobacco Use Types Packs/Day Years Used Date Smoking Tobacco: Never Smokeless Tobacco: Never Alcohol Use Standard Drinks/Week Comments Not Currently 0 (1 standard drink = 0.6 oz pur e alcohol) Sex and Gender Information Value Date Recorded Sex Assigned at Not on file Gender Identity Not on file Sexual Orientation Not on file Plan of Treatment Not on file Care Teams Rod Greaser Relationship Specialty Start Date End Date Naveen Lott MD [address] [place] [address] PCP - General 03/03/21
--- OUTSIDE RECORDS SUMMARY | 2024-09-27 14:41 | XMS_ITS | Clinical Summary ---
Author Organization [facility] Address [address] [place] [address]. [place], [place] [id number] [place] [id number] Care Team Providers Care System Designer Name Role Phone Unavailable Primary Care Provider Unavailabl e Social History Tobacco Use Types Packs/Day Years Used Date Smoking Tobacco: Never Assessed Sex and Gender Information Value Date Recorded Sex Assigned at Not on file Legal Sex Male 2:39 PM CDT Gender Identity Not on file Sexual Orientation Not on file Plan of Treatment Health Maintenance Due Date Last Done Comments DTaP, Tdap and Td Vaccines ( 1 - Tdap) 1961 Zoster Vaccines (1 of 2) 1992 Annual Medicare Wellness Visit 2007 Pneumococcal Vaccine: 65+ Ye ars (2 of 2 - PPSV23 or PCV20) 09/10/2016 09/10/2015 RSV Immunization or 60+ Years (1 - 1-dose 75+ series) 2017 COVID-19 Vaccine ( - 2023-2 5 season) 2024 Influenza Adult (#1) 2024 09/10/2015 Meningococcal Vaccine Aged Out No kimberly elza eligible based on patient's age to complete this topic RSV Immunizations Under 20 Months Aged Out No longer eligible based on patient's age to complete this topic Insurance [facility] [place] [id number]
--- OUTSIDE RECORDS SUMMARY | 2024-09-27 14:41 | XMS_ITS | Clinical Summary ---
Author Organization [facility] Address [address] [place] [address] Care Team Providers Care Wet Wheeler Name Role Phone Naveen Lott MD Primary Care Provider [phone] Source Comments [facility],non-owned Affiliates and Associated Physician Practices is amultiple site organization consisting of ambulatory clinics and hospital sitesin [place], [place], [place] and [place]. This disclosure is being madepursuant to the Care Everywhere program and may not contain all information available regarding this patient. Last updated 18.[facility] Allergies No known active allergies Medications * [...] mg by mouth once daily 08/26/2021 Active Family History Medical History Relation Name Comments Diabetes; unknown type Father Cancer - Lung Mother Hypertension Mother Relation Name Status Comments Father Mother Social History Tobacco Use Types Packs/Day Years [...] Health Maintenance Due Date Last Done Comments DTAP/TDAP/TD VACCINES (1 - Tdap) 1961 PNEUMOCOCCAL VACCINE 50+ (1 of 1 - PCV) 1992 ZOSTER VACCINE (1 of 2) 1992 Respiratory Syncytial Virus (RSV) Vaccine Pt: or over 60 yrs (1 - 1-dose 75+ series) 2017 COVID-19 VACCINE (2023-2 5 season) 2024 INFLUENZA VACCINE (#1) 2024 08/04/2021 DEPRESSION SCREENING 09/04/2024 MEDICARE AWV ? CALENDAR YEAR 2024 HEPATITIS B VACCINE Aged Out No longe r eligible based on patient's age to complete this topic HIB VACCINE Aged Out No longer eligi ble based on patient's age to complete this topic HPV VACCINE Aged Out No longer eligi ble based on patient's age to complete this topic MENINGOCOCCAL (Group B) VACCINE Aged Out No longer eligible based on patient's age to complete this topic MENINGOCOCCAL VACCINE Aged Out No kimberly elza eligible based on patient's age to complete this topic Care Teams Wet Wheeler Relationship Specialty Start Date End Date Naveen Lott MD [address] [place] [address] PCP - General 03/03/21
--- OUTSIDE RECORDS SUMMARY | 2024-09-27 14:41 | XMS_ITS | Patient Health Summary ---
Author Organization [facility] Address [address] [place] [address] Care Team Providers Care Engraver Machine Name Role Phone Naveen Lott MD Primary Care Provider [phone] Note from [facility],non-owned Affiliates and Associated Physician Practices is amultiple site organization consisting of ambulatory clinics and hospital sitesin [place], [place], [place] and [place]. This disclosure is being madepursuant to the Care Everywhere program and may not contain all information available regarding this patient. Last updated 18.[facility] [employer] Allergies No known active allergies Medications * Be aware that medications may not be up to date on this document. Alwaysverify current medications with the patient. * aspirin (ASPIRIN) 81 MG chew tablet Take 81 mg by mouth * atorvastatin (LIPITOR) 40 MG tablet(Started 08/31/2021) Take 40 mg by mouth once daily * cloNIDine (CATAPRES) 0.2 MG tablet(Started 01/18/2021) Take 0.1 mg by mouth 3 times daily * gabapentin (NEURONTIN) 100 MG capsule(Started 09/03/2021) Take 100 mg by mouth 3 times daily * irbesartan (AVAPRO) 300 MG tablet(Started 09/06/2021) Take 300 mg by mouth once daily * metFORMIN (GLUCOPHAGE) 500 MG tablet(Started 03/10/2021) Take 500 mg by mouth once daily * pantoprazole EC (PROTONIX) 40 MG tablet(Started 07/26/2021) Take 40 mg by mouth once daily * iron polysaccharides (NIFEREX 150) 150 MG capsule(Started 03/06/2021) Take 150 mg by mouth once daily * tamsulosin (FLOMAX) 0.4 MG capsule(Started 08/26/2021) Take 0.4 mg by mouth once daily Social History Tobacco Use Types Packs/Day Years Used Date Smoking Tobacco: Never Smokeless Tobacco: Never Alcohol Use Standard Drinks/Week Comments Not Currently 0 (1 standard drink = 0.6 oz pur e alcohol) Sex and Gender Information Value Date Recorded Sex Assigned at Not on file Gender Identity Not on file Sexual Orientation Not on file Care Teams Engraver Machine Relationship Specialty Start Date End Date Naveen Lott MD [address] [place] [address] PCP - General 03/03/21
--- OUTSIDE RECORDS SUMMARY | 2024-09-27 14:41 | XMS_ITS | Clinical Summary ---
Author Organization [facility] Address [address] [place] [address] Phone Care Team Providers Care Ship Mate Name Role Phone Naveen Lott MD Primary Care Provider [phone] Allergies No known active allergies Medications Medication Sig Dispensed Refills Start Date End Date Status atorvastatin (LIPITOR) 40 MG tablet 08/31/2021 Active cloNIDine (CATAPRES) 0.1 MG tablet 3 (three) times a day 08/12/2021 Active gabapentin (NEURONTIN) 100 MG capsule 09/03/2021 Active Accu-Chek Guide test strip 08/05/2021 Active irbesartan (AVAPRO) 300 MG tablet 09/06/2021 Active metFORMIN XR 500 MG 24 hr tablet 07/29/2021 Active pantoprazole (PROTONIX) 40 MG EC tablet 07/26/2021 Active iron polysaccharides (NU-IRON) 150 MG capsule 08/03/2021 Active tamsulosin (FLOMAX) 0.4 MG 24 hr capsule 08/26/2021 Active iron polysaccharides (NU-IRON) 150 MG capsule Take 150 mg by mouth 1 (one) time each day Active aspirin 81 MG chewable tablet Chew 81 mg 1 (one) time each day Active hydroCHLOROthiazide (HYDRODIURIL) 25 MG tablet Take 1 tablet (25 mg total) by mouth 1 (one) time each day 30 tablet 11 09/23/2021 Active NIFEdipine CC (ADALAT CC) 60 MG 24 hr tablet TAKE 1 TABLET BY MOUTH ONCE DAILY. DO NOT CRUSH, CHEW, OR SPLIT. 90 tablet 1 03/16/2022 Active Active Problems Problem Noted Date Diagnosed Date Spinal stenosis of cervical region 08/20/2021 Overview (09/09/2021): Added automatically from request for surgery [id number] History of carotid endarterectomy 04/13/2021 History of placement of stent for coronary arter y disease 04/27/2017 Coronary arteriosclerosis 12/15/2007 Hyperlipidemia 12/15/2007 Hypertension 12/15/2007 Peripheral vascular disease 12/15/2007 Immunizations Name Administration Dates Next Due Influenza TIV (IM) 08/04/2021 Pneumococcal Conjugate 08/04/2021 Family History Medical History Relation Comments Diabetes Father Hypertension Mother Relation Status Comments Father Mother Social History Tobacco Use Types Packs/Day Years Used Date Smoking Tobacco: Former Smokeless Tobacco: Never Alcohol Use Standard Drinks/Week Comments Not Currently 0 (1 standard drink = 0.6 oz pur e alcohol) Sex and Gender Information Value Date Recorded Sex Assigned at Not on file Gender Identity Not on file Sexual Orientation Not on file Last Filed Vital Signs Vital Sign Reading Time Taken Comments Blood Pressure 122/82 03/24/2022 11:22 AM CDT Pulse 60 03/24/2022 11:22 AM CDT Temperature 36.7 ??C (98 ??F) 03/24/2022 11:22 AM CDT Respiratory Rate - - Oxygen Saturation - - Inhaled Oxygen Concentration - - Weight 84.4 kg (186 lb) 03/24/2022 11:22 AM CDT Height 167.6 cm (5' 6 ) 03/24/2022 11:22 AM CDT Body Mass Index 30.02 03/24/2022 11:22 AM CDT Plan of Treatment Health Maintenance Due Date Last Done Comments Pneumococcal PPSV23/PCV13 65 + Years / High and Highest Risk (1 of 4 - PCV) 1946 Influenza Vaccine (#1) 2024 08/04/2021 Care Teams Ship Mate Relationship Specialty Start Date End Date Naveen Lott MD [address] [facility] [address] [facility] [address] [place] [address] PCP - General Internal Medicine 09/07/21
--- OUTSIDE RECORDS SUMMARY | 2024-09-27 14:41 | XMS_ITS | Clinical Summary ---
Author Organization [facility] [address] Address [address] [place] [address] Care Team Providers Care Bindery Machine Setter/Set Up Operator Name Role Phone Naveen Lott MD Primary Care Provider Alexandre Godinez MD Unavailable [phone] Radha JIN MD, Can Bishop Unavailable [phone] Allergies No known active allergies Medications pantoprazole DR (PROTONIX) 40 mg EC tablet take 1 tablet (40MG) by oral route every day 0 1 Active tamsulosin (FLOMAX) 0.4 mg capsule,extended release 24hr Take one by mouth one time per day 0 0 8 Active atorvastatin (LIPITOR) 40 mg tablet Take 1 tablet (40 mg total) by mouth daily Active Ferrex 150 150 mg iron capsule Take 1 capsule (150 mg total) by mouth daily 1 Active gabapentin (NEURONTIN) 100 mg capsule Take 1 capsule (100 mg total) by mouth 3 (three) times a day 1 Active irbesartan (AVAPRO) 300 mg tablet Take 1 tablet (300 mg total) by mouth daily Active metFORMIN XR (GLUCOPHAGE XR) 500 mg 24 hr tablet Take 1 tablet (500 mg total) by mouth daily with dinner 1 Active NIFEdipine CC 60 mg 24 hr tablet Take 1 tablet (60 mg total) by mouth with evening meal 2 Active LORazepam (ATIVAN) 0.5 mg tablet Take 1 tablet (0.5 mg total) by mouth daily as needed 2 Active hydroCHLOROthiazi de (HYDRODIURIL) 25 mg tablet Take 1 tablet (25 mg total) by mouth daily 3 Active aspirin 81 mg enteric coated tablet Take 1 tablet (81 mg total) by mouth every evening Active cloNIDine (CATAPRES) 0.1 mg tabletIndications :Labile hypertension TAKE 2 TABLETS BY MOUTH EVERY MORNING , TAKE 1 TABLET IN AFTERNOON AND TAKE 2 TABLETS AT NIGHT 450 tablet 3 4 Active Active Problems Problem Noted Date Diagnosed Date High creatinine 01/08/2023 Bandemia 01/08/2023 Stenosis of left carotid artery 01/08/2023 Vertebral artery stenosis, left 01/08/2023 Acute nonintractable headache, unspecified heada beto type 01/07/2023 Paroxysmal atrial fibrillation (CMS/HCC) 022 Pure hypercholesterolemia 10/09/2021 Primary hypertension 10/09/2021 Type 2 diabetes mellitus wit h hyperglycemia, without long-term current use of insulin 10/09/2021 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 10/09/2021 Spinal stenosis in cervical region 08/20/2021 Overview (08/20/2021): Added automatically from request for surgery [id number] S/P carotid endarterectomy 04/13/2021 Stenosis of right carotid artery 04/01/2021 Overview (04/01/2021): Added automatically from request for surgery [id number] Weakness 03/08/2021 Coronary artery disease invo lving [place] coronary artery of [place] heart without angina pectoris 04/27/2017 S/P coronary artery stent placement 04/27/2017 Bradycardia Surgical History Surgery Date Site/Laterality Comments CAROTID ENARTERECTOMYY 09/04/2006 - 09/03/2007 Left Carotid Endarterectomy CARDIAC STENT PLACEMENT 09/04/2006 - 09/03/2007 COLONOSCOPY W/ POLYPECTOMY CATARACT EXTRACTION, BILATERAL COLECTOMY CHOLECYSTECTOMY CAROTID ENDARTERECTOMY 09/04/2020 - 09/03/2021 Right Medical History Medical History Date Comments Hypertension Coronary artery disease Atrial fibrillation (CMS/HCC) (HCC) flutter Type 2 diabetes mellitus (HCC) Renal artery stenosis (HCC) 2007 righ t > 60% Cataract Carotid stenosis right > left Anemia Cervical disc herniation Spinal stenosis Sleep apnea BPH (benign prostatic hyperplasia) Shingles (herpes zoster) polyneuropathy Colon cancer (CMS/HCC) (HCC) 2016 GERD (gastroesophageal reflux disease) Arthritis Former smoker Family History Medical History Relation Name Comments Other Father homicide Diabetes type II Maternal Grandfather Khadijah hawk Type II; Cause of : Diabetes Type II Stroke Maternal Grandfather Stroke; Stroke Maternal Grandmother Stroke; Cause of : Stroke Heart attack Mother Relation Name Status Comments Father (Age 75) Maternal Grandfather Maternal Grandmother (Age 80) Mother (Age 83) Social History Tobacco Use Types Packs/Day Years Used Date Smoking Tobacco: Former Cigarettes 2.7 40 1 967 - 2006 Smokeless Tobacco: Never Comments:2006 Alcohol Use Standard Drinks/Week Comments No 0 (1 standard drink = 0.6 oz pur e alcohol) AUDIT-C Answer Date Recorded Q1: How often do you have a drink containing alc ohol? Never 01/08/2023 Q2: How many drinks containi ng alcohol do you have on a typical day when you are drinking? Patient declined 01/08/2023 Q3: How often do you have si x or more drinks on one occasion? Never 01/08/2023 Overall Financial Resource Strain (CARDIA) Answe r Date Recorded How hard is it for you to pa y for the very basics like food, housing, medical care, and heating? Not hard at all 03/10/2021 Hunger Vital Sign Answer Date Recorded Within the past 12 months, y ou worried that your food would run out before you got the money to buy more. Never true 03/10/20 21 Within the past 12 months, t he food you bought just didn't last and you didn't have money to get more. Never true 03/10/2021 PRAPARE - Transportation Answer Date Re corded In the past 12 months, has l ack of transportation kept you from medical appointments or from getting medications? No 03/2021 In the past 12 months, has l ack of transportation kept you from meetings, work, or from getting things needed for daily living? No 03/10/2021 Personal Safety Answer Date Recorded Have you ever been in or are you currently in a harmful physical or emotional relationship or is someone making you feel afraid or unsafe? Denies 01/08/2023 Sex and Gender Information Value Date Recorded Sex Assigned at Not on file Legal Sex Male 9:17 AM ON AIR ANNOUNCER Gender Identity Not on file Sexual Orientation Not on file Obstetrics History Last Filed Vital Signs Vital Sign Reading Time Taken Comments Blood Pressure 140/58 01/08/2023 11:55 AM CDT Pulse 73 01/08/2023 12:00 PM CDT Temperature 36.7 ??C (98.1 ??F) 01/08/2023 11:55 AM C DT Respiratory Rate 18 01/08/2023 9:23 AM CDT Oxygen Saturation 98% 01/08/2023 11:55 AM CDT Inhaled Oxygen Concentration - - Weight 86.2 kg (190 lb 0.6 oz) 01/08/2023 9:23 A M CDT Height 165.1 cm (5' 5 ) 01/08/2023 9:23 AM CDT Body Mass Index 31.62 01/08/2023 9:23 AM CDT Plan of Treatment Health Maintenance Due Date Last Done Comments Albumin Creatinine Ratio, Urine 1942 Depression Screening 1942 Dilated Eye Exam 1942 Foot Exam 1942 DTaP/Tdap/Td Vaccine (1 - Tdap) 1953 Hepatitis B Screening 1960 Abdominal Aortic Aneurysm (A AA) Screen 2007 Well Visit 65+ 2007 Zoster Vaccine (2 of 3) 07/26/2016 05/31/2016 Pneumococcal vaccine 65+ (2 of 2 - PPSV23 or PCV20) 09/29/2021 08/04/2021, 09/10/2015 Lipid Panel 03/09/2022 03/09/2021, 04/27/2017 Hemoglobin A1C 04/03/2022 10/04/2021, 03/09/2021 Fall Risk Assessment 01/09/2024 01/08/2023, 06/09/20 20 eGFR 01/09/2024 01/08/2023, 05/0 02/2023, 12/12/2022, Additional history exists Influenza Vaccine (#1) 2024 , 05/18/2020, 06/03/2017, Additional history exists Procedures Procedure Name Priority Date/Time Associated Diagnosis Comments EGFR Routine 01/08/2023 5:31 AM CDT HEMOGLOBIN A1C Routine 10/04/2021 10:45 AM ON AIR ANNOUNCER Preop testing LIPID PANEL Routine 03/09/2021 5:04 AM CDT from Last 3 Months or Most Recently Relevant to Health Maintenance Results * eGFR (01/08/2023 5:31 AM CDT) eGFR 59 mL/min/1. 73 m2 [facility] Comment: Interpretive Data Reference Interval Normal ?>/= 90 mL/min/1.73m2 Mildly decreased* ? 60 - 89 mL/min/1.73m2 Mildly to moderately decreased ?45 - 59 mL/min/1.73m2 Moderately to severely decreased ??30 - 44 mL/min/1.73m2 Severely decreased ?15 - 29 mL/min/1.73m2 Kidney Failure ?< 15 ??mL/min/1.73m2 *Relative to young adult level Estimated glomerular filtration rate is determined by the 2020 CKD-EPI equation recommended by the National Kidney Foundation (A Unifying Approach to GFR Estimation: Recommendations of the NKF-ASK Task Force on Reassessing the Inclusion of Race in Diagnosing Kidney Disease, JASN 2020). The CKD-EPI equation should not be used for patients with unstable renal function and has not been validated in children and those over 70. Current interpretive data was last reviewed 2021. Blood 01/08/2023 5:31 AM CDT 01/08/2023 5:34 AM CDT us Holden Oconnor MD LAB BLOOD ORDERABLES F inal Result [facility] [address] Department [place] [address] * (ABNORMAL) Hemoglobin A1c (10/04/2021 10:45 AM ON AIR ANNOUNCER) Hgb A1C 6.6(H) 4.0 - 5.6 % [facility]IE [facility]OUSER Estimated Average Glucose 143 mg/dL [facility]IE [facility]OUSER Comment: The ADA recommends reporting an estimated Average Glucose (eAG) with all Hemoglobin A1c results using the equation derived from a study of 507 normal and diabetic adults. ??Minority populations were underrepresented and children were not included. ?? (Diabetes Care 31:9875-8781, 2008). ??The eAG is not equivalent to a fasting glucose. Blood 10/04/2021 10:4 5 AM ON AIR ANNOUNCER 10/04/2021 11:11 AM ON AIR ANNOUNCER us Alexandre Godinez MD LAB BLOOD ORDERABLES Final Res ult [facility] [address] Department [place] [address] * (ABNORMAL) Lipid panel (03/09/2021 5:04 AM CDT) Cholesterol 77 30 - 199 mg/dL [facility] Comment: Interpretive Data Ages < or = 19 years ??Acceptable: ? <170 mg/dL ??Borderline high: ??170-199 mg/dL ??High: ? >or= 200 mg/dL Ages > or = 20 years ??Desirable: ?<200 mg/dL ??Borderline high: ??200-239 mg/dL ??High: ? >or= 240 mg/dL Literature References: 1. Expert Panel on Integrated Guidelines for Cardiovascular Health and Risk Reduction in Children and Adolescents. Pediatrics 2011;128:S213 2. NCEP Expert Panel. Circulation 2004;110:227 Current Interpretive Data was last revised on 2018. Triglycerides 99 <=149 mg/dL [facility]IE [facility]OUSER Comment: Interpretive Data Ages < or = 9 years ??Acceptable: ? <75 mg/dL ??Borderline high: ??75-99 mg/dL ??High: ? >or= 100 mg/dL Ages 10 to 20 years ??Acceptable: ? <90 mg/dL ??Borderline high: ??90-129 mg/dL ??High: ? >or= 130 mg/dL Ages > or = 20 years ??Desirable: ?<150 mg/dL ??Borderline high: ??150-199 mg/dL ??High: ? 200-499 mg/dL ?Very high: ?? >or= 499 mg/dL Literature References: 1. Expert Panel on Integrated Guidelines for Cardiovascular Health and Risk Reduction in Children and Adolescents. Pediatrics 2011;128:S213 2. NCEP Expert Panel. Circulation 2004;110:227 Current Interpretive Data was last revised on 2018. HDL 31(L) >=40 mg/dL [facility]ER Comment: Interpretive Data Ages < or = 19 years ??Acceptable: ? >45 mg/dL ??Borderline low: ?? 40-45 mg/dL ??Low: ? <40 mg/dL Ages > or = 20 years ??Desirable: ?>or= 60 mg/dL ??Low: ? <40 mg/dL Literature References: 1. Expert Panel on Integrated Guidelines for Cardiovascular Health and Risk Reduction in Children and Adolescents. Pediatrics 2011;128:S213 2. NCEP Expert Panel. Circulation 2004;110:227 Current Interpretive Data was last revised on 2018. LDL, calculated 26 <=129 mg/dL VAL[facility]IE [facility]OUSER Comment: Interpretive Data Ages < or = 19 years ??Acceptable: ? <110 mg/dL ??Borderline high: ??110-129 mg/dL ??High: ?>or= 130 mg/dL Ages > or = 20 years ??Optimal: ? <100 mg/dL ??Near optimal: ?100-129 mg/dL ??Borderline high: ?? 130-159 mg/dL ??High: ?>160 mg/dL Literature References: 1. Expert Panel on Integrated Guidelines for Cardiovascular Health and Risk Reduction in Children and Adolescents. Pediatrics 2011;128:S213 2. NCEP Expert Panel. Circulation 2004;110:227 Current Interpretive Data was last revised on 2018. Non-HDL Cholesterol 46 mg/dL VALERIE [facility]OUSER Comment: Interpretive Data Ages < or = 19 years ??Acceptable: ?<120 mg/dL ??Borderline high: ??120-144 mg/dL ??High: ?>145 mg/dL Ages > or = 20 years ??When triglycerides are >200 mg/dL, Non-HDL cholesterol is a secondary target of ? therapy with treatment goals that are 30 mg/dL greater than the LDL cholesterol target. ? Literature References: 1. Expert Panel on Integrated Guidelines for Cardiovascular Health and Risk Reduction in Children and Adolescents. Pediatrics 2011;128:S213 2. NCEP Expert Panel. Circulation 2004;110:227 Current Interpretive Data was last revised on 2018. Chol/HDL ratio 2 VALERIE Blood specimen (specimen) 03/09/2021 5:04 AM CDT 03/09/2021 5:22 AM CDT us Emily Newman NP LAB BLOOD ORDERABLES Final Result VALERIE [address] Department [place] [address] from Last 3 Months or Most Recently Relevant to Health Maintenance Insurance MEDICARE SOLUTIONS MEDICARE SOLUTIONS MEDICARE SOLUTIONS [facility] MDCR HMO REF Advance Directives For more information, please contact: [phone] * Full Code (Latest Code Status on File) Date Activated Date Inactivated Comments 01/07/2023 9:03 PM 01/08/2023 8:55 PM * Full Code Date Activated Date Inactivated Comments 10/08/2021 6:40 PM 10/09/2021 6:54 PM * Full Code Date Activated Date Inactivated Comments 04/13/2021 8:38 PM 04/15/2021 9:43 PM * Full Code Date Activated Date Inactivated Comments 03/08/2021 12:34 PM 03/10/2021 11:12 PM Care Teams Bindery Machine Setter/Set Up Operator Relationship Specialty Start Date End Date Naveen Lott MD [address] [place] [address] PCP - General 12/02/16 [place] [address] [place] [address] Surgeon Neurosurgery 03/10/21 [place] [address] [facility] [address] [place] [address] Consulting Physician Neurology 03/10/21
--- OUTSIDE RECORDS SUMMARY | 2024-09-27 14:41 | XMS_ITS | Referral Summary ---
Author Organization [facility] [address] Address [address] [place] [address] Care Team Providers Care Gas Torch Brazier Name Role Phone Naveen Lott MD Primary Care Provider Alexandre Godinez MD Unavailable [phone] Radha JIN MD, Can Bishop Unavailable [phone] Allergies No known active allergies Medications pantoprazole [...] (08/20/2021): Added automatically from request for surgery [id number] S/P carotid endarterectomy 04/13/2021 Stenosis of right carotid artery 04/01/2021 Overview (04/01/2021): Added automatically from request for surgery [id number] [facility] 03/08/2021 Coronary artery disease invo lving [place] coronary artery of [place] heart without angina pectoris 04/27/2017 S/P coronary artery stent placement 04/27/2017 Bradycardia Social History Tobacco Use Types Packs/Day Years Used Date Smoking Tobacco: Former Cigarettes 2.7 40 1 967 - 2007 Smokeless Tobacco: Never Comments:2006 Alcohol Use Standard [...] on file Legal Sex Male 9:17 AM TUMBLER MACHINE OPERATOR Gender Identity Not on file Sexual Orientation [...] 01/08/2023 9:23 AM CDT Plan of Treatment Not on file Procedures Procedure Name Priority Date/Time Associated Diagnosis Comments EGFR Routine 01/08/2023 5:31 AM CDT HEMOGLOBIN A1C Routine 10/04/2021 10:45 AM TUMBLER MACHINE OPERATOR Preop testing LIPID PANEL Routine 03/09/2021 5:04 AM CDT from Last 3 Months or Most Recently Relevant to Health Maintenance Results * eGFR (01/08/2023 5:31 AM CDT) Pathologist [facility] eGFR 59 mL/min/1. 73 m2 VALERIE HOUSER [...] of Race in Diagnosing Kidney Disease, JASN 202). The CKD-EPI equation should not be used for patients with unstable renal function and has not been validated in children and those over 70. Current interpretive data was last reviewed 2021. Blood 01/08/2023 5:31 AM CDT 01/08/2023 5:34 AM CDT us Holden Oconnor MD LAB BLOOD ORDERABLES F inal Result [facility]IE [facility]OUS[facility] [address] Department [place] [address] * (ABNORMAL) Hemoglobin A1c (10/04/2021 10:45 AM TUMBLER MACHINE OPERATOR) Pathologist [facility] Hgb A1C 6.6(H) 4.0 - 5.6 % VALERIE Estimated Average Glucose 143 mg/dL [facility]IE [facility]OUSER Comment: The ADA recommends reporting an estimated Average Glucose (eAG) with all Hemoglobin A1c results using the equation derived from a study of 507 normal and diabetic adults. ??Minority populations were underrepresented and children were not included. ?? (Diabetes Care 31:7518-2130, 2008). ??The eAG is not equivalent to a fasting glucose. Blood 10/04/2021 10:4 5 AM TUMBLER MACHINE OPERATOR 10/04/2021 11:11 AM TUMBLER MACHINE OPERATOR us Alexandre Godinez MD LAB BLOOD ORDERABLES Final Res ult [facility]ERIE [address] Department [place] [address] * (ABNORMAL) Lipid panel (03/09/2021 5:04 AM CDT) [facility] Cholesterol 77 30 - 199 mg/dL VALERIE Comment: Interpretive Data Ages < or = [...] on 2018. Triglycerides 99 <=149 mg/dL VALERIE Comment: Interpretive Data Ages < or = [...] on 2018. HDL 31(L) >=40 mg/dL VALERIE Comment: Interpretive Data Ages < or = [...] 2018. LDL, calculated 26 <=129 mg/dL VALERIE Comment: Interpretive Data Ages < or = [...] 5:04 AM CDT 03/09/2021 5:22 AM CDT Emily Newman NP LAB BLOOD ORDERABLES Final Result [facility] [address] Department [place] [address] from Last 3 Months or Most Recently Relevant to Health Maintenance Insurance MEDICARE SOLUTIONS [place] [id number] [facility] Advance Directives For more information, please contact: [phone] * Full Code (Latest Code Status on File) Date Activated Date Inactivated Comments 01/07/2023 9:03 PM 01/08/2023 8:55 PM * Full Code Date Activated Date Inactivated Comments 10/08/2021 6:40 PM 10/09/2021 6:54 PM * Full Code Date Activated Date Inactivated Comments 04/13/2021 8:38 PM 04/15/2021 9:43 PM * Full Code Date Activated Date Inactivated Comments 03/08/2021 12:34 PM 03/10/2021 11:12 PM Care Teams Gas Torch Brazier Relationship Specialty Start Date End Date Naveen Lott MD [address] [place] [address] PCP - General 12/02/16 [place] [address] [place] [address] Surgeon Neurosurgery 03/10/21 [place] [address] [facility] [address] [place] [address] Consulting Physician Neurology 03/10/21
--- OUTSIDE RECORDS SUMMARY | 2024-09-27 14:41 | XMS_ITS | CONTINUITY OF CARE DOCUMENT ---
Author Name arash antoine Address Unknown Organization [facility] Address [address] [facility] [address] [place] [address] Phone [phone] Care Team Providers Care Architect Internship Name Role Phone Luis THOMAS, Emmanuel Unavailable KASIA THOMAS, ALFONSO Unavailable APOLINAR THOMAS, NAZANIN Unavailable PROBLEMS Condition Status Date Provider Notes GOUT, HX OF active Corrine Stahlschmidt CAD active Corrine Stahlschmidt HYPERTENSION active Corrine Stahlschmidt HYPERLIPIDEMIA active Corrine Stahlschmidt OBESITY active Corrine Stahlschmidt PVD active Corrine Stahlschmidt ALLERGIES No Known Drug Allergies HISTORY OF MEDICATION USE Medication Status Instructions Dates Provider Indications Com ments PLAVIX 75 MG ORAL TABLET active ONE TAB. DAILY Corrine Stahlschmidt LORAZEPAM TABLET active BID Corrine Stahlschmidt LOTREL 5-20 MG ORAL CAPSULE active BID Corrine Stahlschmidt LOPRESSOR 50 MG ORAL TABLET active BID Corrine Stahlschmidt ZOCOR 40 MG ORAL TABLET active ONE TAB. AT BEDTIME Corrine Stahlschmidt ASPIRIN 81 MG ORAL TABLET CHEWABLE active ONE TAB. DAILY Corrine Stahlschmidt CLONIDINE HCL 0.2 MG ORAL TABLET active ONE TAB. TWICE DAILY Corrine Stahlschmidt NIASPAN 500 MG ORAL TABLET EXTENDED RELEASE active ONE TAB. AT BEDTIME Corrine Stahlschmidt INSURANCE PROVIDERS Payer name Policy type / Coverage type Tennille red green party ID UHC MEDICARE COMPLETE O Other [id number]
--- NOTE | 2024-09-27 14:46 | ED_ITS ---
HPI - Chest Pain General Chief Complaint: Recheck/Abnormal Lab/Rx <Selene Morena Cummins APRN - Last Filed: 09/27/24 14:50> Stated Complaint: htn <Selene Morena Cummins APRN - Last Filed: 09/27/24 14:50> Time Seen by Provider: 09/27/24 14:40 <Selene Cummins APRN - Last Filed: 09/27/24 14:50> Focused HPI: Patient is a 89-year-old male who presents to the ER with complaints of a high blood pressure and chest pain. Patient reports he took his blood pressure at home and it was 330 over something. He endorses shortness of breath, left-sided chest pain that radiates to his arm. Patient reports he took his blood pressure medications this morning, which usually keeps his blood pressure in a normal range. He denies any back pain, abdominal pain, new onset lower extremity swelling, one-sided weakness/numbness/tingling, recent fevers. GENERAL: Well-appearing, well-nourished, and in no acute distress. HEAD: Normocephalic, atraumatic. CHEST: Clear to auscultation. ?No respiratory distress. HEART: Tachycardia, regular rhythm.? NEURO: ?Alert and oriented x3. Patient screened in triage and initial orders placed.? ?Additional care and disposition to be based upon?diagnostic testing and treatment. <Selene Cummins APRN - Last Filed: 09/27/24 14:50> Source: patient <Tyshawn Santoyo MD - Last Filed: 09/27/24 17:10> Mode of arrival: ambulatory <Tyshawn Santoyo MD - Last Filed: 09/27/24 17:10> Limitations: no limitations <Tyshawn Santoyo MD - Last Filed: 09/27/24 17:10> History of Present Illness HPI narrative: 84-year-old with a history of hypertension, CKD, diabetes here with the complaints of elevated blood pressure. Patient stated his blood pressure systolic blood pressure was 330. Denied having any chest pain or shortness of breath. However he states for the past few days he has been having rib pain on and off. <Tyshawn Santoyo MD - Last Filed: 09/27/24 17:10> Onset (ago): day(s) (1) <Tyshawn Santoyo MD - Last Filed: 09/27/24 17:10> Severity: mild <Tyshawn Santoyo MD - Last Filed: 09/27/24 17:10> Quality: aching <Tyshawn Santoyo MD - Last Filed: 09/27/24 17:10> Relieving factors: nothing <Tyshawn Santoyo MD - Last Filed: 09/27/24 17:10> Risk Factors Coronary artery disease risk factors: none <Tyshawn Santoyo MD - Last Filed: 09/27/24 17:10> Related Data Home Medications: Home Medications ?Medication ?Instructions ?Recorded ?Confirmed ?Last Taken ?Type aspirin 81 mg tablet,delayed 81 mg PO DAILY 10/16/19 07/23/24 08/23/23 08:00 History release (Adult Aspirin Regimen) clopidogrel 75 mg tablet 75 mg PO DAILY 08/12/21 07/23/24 08/23/23 08:00 History clonidine HCl 0.1 mg tablet 0.1 mg PO USEASDIRECTD 08/24/23 07/23/24 Unknown History <Selene Cummins APRN - Last Filed: 09/27/24 14:50> Allergies/Adverse Reactions: Allergies Allergy/AdvReac Type Severity Reaction Status Date / Time No Known Allergies Allergy Verified 07/22/24 11:13 <Selene Cummins APRN - Last Filed: 09/27/24 14:50> Review of Systems 2 Review of Systems: All systems reviewed & are unremarkable except as noted in HPI and below <Tyshawn Santoyo MD - Last Filed: 09/27/24 17:10> Constitutional: Constitutional: Reports no additional constitutional complaints <Tyshawn Santoyo MD - Last Filed: 09/27/24 17:10> Eyes: Eyes: Reports no additional eye complaints <Tyshawn Santoyo MD - Last Filed: 09/27/24 17:10> ENT: Reports system reviewed and no additional complaints, except as documented <Tyshawn Santoyo MD - Last Filed: 09/27/24 17:10> Cardiovascular: Cardiovascular: Reports no additional cardiovascular complaints <Tyshawn Santoyo MD - Last Filed: 09/27/24 17:10> Respiratory: Respiratory: Reports no additional respiratory complaints < Tyshawn Santoyo MD - Last Filed: 09/27/24 17:10> Gastrointestinal: Gastrointestinal: Reports no additional gastrointestinal complaints <Tyshawn Santoyo MD - Last Filed: 09/27/24 17:10> Musculoskeletal: Musculoskeletal: Reports no additional musculoskeletal complaints <Tyshawn Santoyo MD - Last Filed: 09/27/24 17:10> Integumentary/Breasts: Skin/Breast: Reports system reviewed and no additional complaints, except as docu <Tyshawn Santooy MD - Last Filed: 09/27/24 17:10> Neurologic: Reports system reviewed and no additional complaints, except as documented <Tyshawn Santoyo MD - Last Filed: 09/27/24 17:10> Psychiatric: Psychiatric: Reports no additional psychiatric complaints < Tyshawn Santoyo MD - Last Filed: 09/27/24 17:10> Endocrine: Endocrine: Reports no additional endocrine complaints <Tyshawn Santoyo MD - Last Filed: 09/27/24 17:10> PMFSH Past Medical History Medical History: Medical History Renal artery stenosis Peripheral vascular disease Coronary artery disease Colorectal cancer Type 2 diabetes mellitus Hypertension Gastroesophageal reflux disease Chronic kidney disease, stage 3 Diabetic neuropathy Mixed hyperlipidemia Carotid artery stenosis <Selene Cummins APRN - Last Filed: 09/27/24 14:50> Surgical History Surgical History: Surgical History History of right-sided carotid endarterectomy History of cholecystectomy History of cataract extraction History of coronary artery stent placement History of colon surgery <Selene Cummins APRN - Last Filed: 09/27/24 14:50> Family History Family History: Family History Mother Family history of coronary artery disease Cerebrovascular accident Sibling Family history of coronary artery disease Other Hypertension Other Diabetes mellitus Father Diabetes mellitus Other Family history of cardiovascular disease <Selene Cummins APRN - Last Filed: 09/27/24 14:50> Social History Social History: Social History Social History: Surrogate medical decision maker: Cassius Pérez, brother. Code status: Full code. Smoking packs per day: 2 Smoking cigarettes per day: 40.0 Years smoked: 57 Smoking pack-years: 114.00 Smoking status: Former smoker Tobacco type: cigarettes Second hand tobacco smoke exposure: No Alcohol intake: never Substance use: never Substance use type: does not use Do You Feel Safe in your Home?: Yes Lack of Transportation: No Lack of Food: Never True Current Housing: I Have Housing Concerned About Future Housing: No Difficulty Paying Gas/Electric Bills: No Difficulty Paying for Meds: No Currently Unemployed: No Education: High School Diploma/GED Difficulty w/ Childcare or Family Care: No Living arrangements: alone Additional living arrangements comments: Lives in [place]. . Has 1 son. 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 Gender identity (if verbalized by the patient): Male Spiritual care concerns: No <Selene Cummins APRN - Last Filed: 09/27/24 14:50> Exam 2 Narrative: GENERAL: Well-appearing, well-nourished, and in no acute distress. HEAD: Normocephalic, atraumatic. EYES: PERRLA and EOMI. ENT: Nares clear, no rhinorrhea or epistaxis. Mucous membranes moist. NECK: Supple. CHEST: Clear to auscultation. No respiratory distress. HEART: Regular rate and rhythm. No murmur heard. Normal peripheral pulses. ABDOMEN: Soft, nontender, nondistended, normal active bowel sounds. EXTREMITIES: Normal range of motion. No edema. SKIN: Warm, dry, no rash. NEURO: No focal deficits. Alert and oriented x3. PSYCH: Normal mood and affect. <Tyshawn Santoyo MD - Last Filed: 09/27/24 17:10> Course Course Emergency Course: Notified patient about his lab work. EKG and chest x-ray findings. Most likely his elevated blood pressure could be from anxiety however his systolic blood pressure being 160s. Advised him to continue home medications, follow-up with his primary doctor <Tyshawn Santoyo MD - Last Filed: 09/27/24 17:10> Vital Signs Vital signs: Vital Signs Temperature 36.4 C 09/27/24 14:40 Pulse Rate 112 H 09/27/24 14:40 Respiratory Rate 22 H 09/27/24 14:40 Blood Pressure 219/65 H 09/27/24 14:40 Pulse Oximetry 98 09/27/24 14:40 Temperature 36.6 C 09/27/24 16:22 Pulse Rate 72 09/27/24 16:22 Respiratory Rate 16 09/27/24 16:22 Blood Pressure 133/61 09/27/24 16:22 Pulse Oximetry 100 09/27/24 16:22 <Selene Cummins, DIALYSIS CHIEF EQUIPMENT TECHNICIAN - Last Filed: 09/27/24 14:50> Vital Signs Temperature 36.4 C 09/27/24 14:40 Pulse Rate 112 H 09/27/24 14:40 Respiratory Rate 22 H 09/27/24 14:40 Blood Pressure 219/65 H 09/27/24 14:40 Pulse Oximetry 98 09/27/24 14:40 Temperature 36.6 C 09/27/24 16:22 Pulse Rate 72 09/27/24 16:22 Respiratory Rate 16 09/27/24 16:22 Blood Pressure 133/61 09/27/24 16:22 Pulse Oximetry 100 09/27/24 16:22 <Tyshawn Santoyo MD - Last Filed: 09/27/24 17:10> MDM - Chest Pain Differential Diagnosis Differential diagnosis: Likely unstable angina pectoris, atypical chest pain and chest pain <Tyshawn Santoyo MD - Last Filed: 09/27/24 17:10> Medical Records Data Attestation: I reviewed the patient's medical records. <Tyshawn Santoyo MD - Last Filed: 09/27/24 17:10> Lab Data Attestation: I reviewed the patient's lab results. <Tyshawn Santoyo MD - Last Filed: 09/27/24 17:10> Result diagrams: 09/27/24 14:55 09/27/24 14:55 <Selene Cummins, DIALYSIS CHIEF EQUIPMENT TECHNICIAN - Last Filed: 09/27/24 14:50> Labs: Lab Results 09/27/24 09/27/24 09/27/24 Range/Units 14:54 14:55 15:38 WBC 9.5 (4.5-10.0) K/mm3 RBC 5.10 (4.6-6.20) M/mm3 Hgb 11.9 L (14.0-18.0) g/dL Hct 39.4 L (42.0-52.0) % MCV 77.3 L (80-100) fl MCH 23.3 L (26-34) pg MCHC 30.2 L (32-36) g/dl RDW 17.1 H (11.5-14.5) % Plt Count 304 (150-375) k/mm3 MPV 11.2 H (7.4-10.4) fl Immature Gran % (Auto) 0.3 (0-0.5) % Neut % (Auto) 58.7 (45.5-73.1) % Lymph % (Auto) 31.0 (18.3-44.2) % Bacon % (Auto) 7.4 (2.6-8.5) % Eos % (Auto) 1.4 (0-4.4) % Baso % (Auto) 1.2 (0.2-1.2) % Lymph # (Auto) 2.94 (0.9-3.2) K/mm3 Bacon # (Auto) 0.7 H (0.1-0.6) K/mm3 Eos # (Auto) 0.1 (0-0.3) K/mm3 Baso # (Auto) 0.1 (0.0-0.1) K/mm3 Abs Immat Gran (auto) 0.03 (0.00-0.031) K/mm3 Absolute Neuts (auto) 5.6 (1.3-6.7) K/mm3 Absolute Nucleated RBC 0.000 (0.0-0.012) K/mm3 Nucleated RBC % 0.0 (0.0-0.2) % PT 13.1 (11.1-14.7) Seconds INR 1.0 APTT 35.4 (22.3-36.8) Seconds D-Dimer 0.38 (<0.48) ug/mL Sodium 139 (137-145) mmol/L Potassium 4.2 (3.4-5.0) mmol/L Chloride 102 (98-107) mmol/L Carbon Dioxide 25 (22-30) mmol/L Anion Gap 12 (4-12) mmol/L BUN 39 H D (9-20) mg/dL Creatinine 1.51 H (0.7-1.3) mg/dL Estim Creat Clear Calc Not Reportable Estimated GFR 44 L (59 - ) Glucose 142 H (65-110) mg/dL Calcium 10.3 H (8.4-10.2) mg/dL Total Bilirubin 1.1 (0.2-1.3) mg/dL AST 23 (17-59) U/L ALT 16 (6-50) U/L Alkaline Phosphatase 92 (38-126) U/L Troponin I 0.014 (0.000-0.034) ng/mL NT-Pro-B Natriuret Pep 134 H (19.9-100) pg/mL Total Protein 7.0 (6.3-8.2) g/dL Albumin 4.3 (3.5-5.1) g/dL Lipase 123 (23-300) U/L Urine Color Yellow (Yellow) Urine Appearance Clear (Clear) Urine pH 6.5 (5.0-9.0) Ur Specific [place] 1.011 (1.001-1.035) Urine Protein Negative (Negative) mg/dL Urine Glucose (UA) Negative (Negative) mg/dL Urine Ketones Negative (Negative) mg/dL Ur Blood (Man) Negative (Negative) Urine Nitrate Negative (Negative) Urine Bilirubin Negative (Negative) Urine Urobilinogen 0.2 (<2.0) mg/dL Leukocyte Esterase Rfl Negative (Negative) MAURICE/UL Influenza A (RT-PCR) Negative (Negative) Influenza B (RT-PCR) Negative (Negative) RSV (RT-PCR) Negative (Negative) SARS-CoV-2 RNA (RT-PCR) Negative (Negative) <Selene Cummins, DIALYSIS CHIEF EQUIPMENT TECHNICIAN - Last Filed: 09/27/24 14:50> Lab Results 09/27/24 09/27/24 09/27/24 Range/Units 14:54 14:55 15:38 WBC 9.5 (4.5-10.0) K/mm3 RBC 5.10 (4.6-6.20) M/mm3 Hgb 11.9 L (14.0-18.0) g/dL Hct 39.4 L (42.0-52.0) % MCV 77.3 L (80-100) fl MCH 23.3 L (26-34) pg MCHC 30.2 L (32-36) g/dl RDW 17.1 H (11.5-14.5) % Plt Count 304 (150-375) k/mm3 MPV 11.2 H (7.4-10.4) fl Immature Gran % (Auto) 0.3 (0-0.5) % Neut % (Auto) 58.7 (45.5-73.1) % Lymph % (Auto) 31.0 (18.3-44.2) % Bacon % (Auto) 7.4 (2.6-8.5) % Eos % (Auto) 1.4 (0-4.4) % Baso % (Auto) 1.2 (0.2-1.2) % Lymph # (Auto) 2.94 (0.9-3.2) K/mm3 Bacon # (Auto) 0.7 H (0.1-0.6) K/mm3 Eos # (Auto) 0.1 (0-0.3) K/mm3 Baso # (Auto) 0.1 (0.0-0.1) K/mm3 Abs Immat Gran (auto) 0.03 (0.00-0.031) K/mm3 Absolute Neuts (auto) 5.6 (1.3-6.7) K/mm3 Absolute Nucleated RBC 0.000 (0.0-0.012) K/mm3 Nucleated RBC % 0.0 (0.0-0.2) % PT 13.1 (11.1-14.7) Seconds INR 1.0 APTT 35.4 (22.3-36.8) Seconds D-Dimer 0.38 (<0.48) ug/mL Sodium 139 (137-145) mmol/L Potassium 4.2 (3.4-5.0) mmol/L Chloride 102 (98-107) mmol/L Carbon Dioxide 25 (22-30) mmol/L Anion Gap 12 (4-12) mmol/L BUN 39 H D (9-20) mg/dL Creatinine 1.51 H (0.7-1.3) mg/dL Estim Creat Clear Calc Not Reportable Estimated GFR 44 L (59 - ) Glucose 142 H (65-110) mg/dL Calcium 10.3 H (8.4-10.2) mg/dL Total Bilirubin 1.1 (0.2-1.3) mg/dL AST 23 (17-59) U/L ALT 16 (6-50) U/L Alkaline Phosphatase 92 (38-126) U/L Troponin I 0.014 (0.000-0.034) ng/mL NT-Pro-B Natriuret Pep 134 H (19.9-100) pg/mL Total Protein 7.0 (6.3-8.2) g/dL Albumin 4.3 (3.5-5.1) g/dL Lipase 123 (23-300) U/L Urine Color Yellow (Yellow) Urine Appearance Clear (Clear) Urine pH 6.5 (5.0-9.0) Ur Specific [place] 1.011 (1.001-1.035) Urine Protein Negative (Negative) mg/dL Urine Glucose (UA) Negative (Negative) mg/dL Urine Ketones Negative (Negative) mg/dL Ur Blood (Man) Negative (Negative) Urine Nitrate Negative (Negative) Urine Bilirubin Negative (Negative) Urine Urobilinogen 0.2 (<2.0) mg/dL Leukocyte Esterase Rfl Negative (Negative) MAURICE/UL Influenza A (RT-PCR) Negative (Negative) Influenza B (RT-PCR) Negative (Negative) RSV (RT-PCR) Negative (Negative) SARS-CoV-2 RNA (RT-PCR) Negative (Negative) <Tyshawn Santoyo MD - Last Filed: 09/27/24 17:10> Imaging Data Attestation: I personally reviewed and interpreted this imaging study as follows: < Tyshawn Santoyo MD - Last Filed: 09/27/24 17:10> Radiologist's impression: ITS Impressions Chest X-Ray 09/27/24 15:10 IMPRESSION: 1. Mild atelectasis versus scarring at the lung bases. <Tyshawn Santoyo MD - Last Filed: 09/27/24 17:10> ECG Data EKG #1: ECG completion date: 09/27/24 <Tyshawn Santoyo MD - Last Filed: 09/27/24 17:10> ECG completion time: 14:42 <Tyshawn Santoyo MD - Last Filed: 09/27/24 17:10> EKG Interpretation: normal rate (97), sinus rhythm, non-specific ST changes, no ST changes, normal QT and left axis <Tyshawn Santoyo MD - Last Filed: 09/27/24 17:10> Discharge Plan Discharge Clinical Impression: Anxiety HTN (hypertension) Qualifiers: Hypertension type: primary hypertension Qualified Code(s): I10 - Essential (primary) hypertension <Selene Cummins APRN - Last Filed: 09/27/24 14:50> Patient Disposition: Home, Self-Care <Selene Cummins APRN - Last Filed: 09/27/24 14:50> Condition: Stable <Selene Cummins APRN - Last Filed: 09/27/24 14:50> Instructions: Hypertension (ED) <Selene Cummins APRN - Last Filed: 09/27/24 14:50> Additional Instructions: continue home medications, follow with your doctor <Selene Cummins APRN - Last Filed: 09/27/24 14:50> Patient Language: Citizen Of [place] <Selene Cummins APRN - Last Filed: 09/27/24 14:50> Prescriptions: No Action clopidogrel 75 mg tablet 75 mg PO DAILY aspirin [Adult Aspirin Regimen] 81 mg tablet,delayed release (DR/EC) 81 mg PO DAILY methocarbamol 500 mg tablet 500 mg PO TID PRN (Reason: muscle spasm) Qty: 15 0RF clonidine HCl 0.1 mg tablet 0.1 mg PO USEASDIRECTD Rx Instructions: TAKE 2 TABLETS BY MOUTH EVERY MORNING , TAKE 1 TABLET IN AFTERNOON AND TAKE 2 TABLETS AT NIGHT (DME) blood-glucose meter [Accu-Chek Jaimee Plus Meter] Mis See Rx Instructions .ROUTE .MEDSUPPLY Qty: 1 0RF Rx Instructions: Used once daily to check blood sugar (DME) lancets [Accu-Chek Multiclix Lancet] Misc See Rx Instructions .ROUTE .MEDSUPPLY Qty: 200 10RF Rx Instructions: Use once daily to check blood sugar (DME) Blood Glucose Test Strip See Rx Instructions .ROUTE .MEDSUPPLY Qty: 100 3RF Rx Instructions: Use once daily to check blood sugar metformin 500 mg tablet extended release 24 hr 500 mg PO DAILY Qty: 90 3RF nifedipine 60 mg tablet extended release 60 mg PO DAILY Qty: 90 3RF ergocalciferol (vitamin D2) 1,250 mcg (50,000 unit) capsule 1,250 mcg PO WEEKLY Qty: 14 3RF gabapentin 100 mg capsule 100 mg PO TID Qty: 270 2RF polysaccharide iron complex 150 mg iron capsule 150 mg PO DAILY Qty: 90 3RF pantoprazole 40 mg tablet,delayed release (DR/EC) See Rx Instructions .ROUTE .COMPLEX Qty: 180 2RF Dose Instruction: TAKE 1 TABLET BY MOUTH TWICE A DAY Rx Instructions: TAKE 1 TABLET BY MOUTH TWICE A DAY hydrochlorothiazide 25 mg tablet 25 mg PO DAILY Qty: 90 2RF tamsulosin 0.4 mg capsule 0.4 mg PO DAILY Qty: 90 2RF lorazepam 0.5 mg tablet 0.5 mg PO BID PRN (Reason: anxiety) Qty: 45 0RF atorvastatin 40 mg tablet See Rx Instructions .ROUTE .COMPLEX Qty: 90 0RF Dose Instruction: TAKE 1 TABLET (40 MG) BY MOUTH DAILY Rx Instructions: TAKE 1 TABLET (40 MG) BY MOUTH DAILY irbesartan 300 mg tablet See Rx Instructions .ROUTE .COMPLEX Qty: 90 0RF Dose Instruction: TAKE 1 TABLET (300 MG) BY MOUTH DAILY Rx Instructions: TAKE 1 TABLET (300 MG) BY MOUTH DAILY <Selene Cummins APRN - Last Filed: 09/27/24 14:50> Follow-up/Referrals: Naveen Lott MD [Primary Care Provider] - <Selene Cummins APRN - Last Filed: 09/27/24 14:50> Time of Disposition: 17:09 <Selene Cummins APRN - Last Filed: 09/27/24 14:50> 17:09 <Tyshawn Santoyo MD - Last Filed: 09/27/24 17:10>
[2024-09-27 14:59] VITALS: RESP 19; O2SAT 100
[2024-09-27 15:00] VITALS: BP 142/54; PULSE 83; RESP 16; TEMP 36.6; O2SAT 100
[2024-09-27 15:09] LABS: Basophils Absolute Auto 0.1 K/mm3 (0.0-0.1); Basophils Percent Auto 1.2 % (0.2-1.2); Eosinophils Absolute Auto 0.1 K/mm3 (0-0.3); Eosinophils Percent Auto 1.4 % (0-4.4); Hematocrit 39.4 % (42.0-52.0); Hemoglobin 11.9 g/dL (14.0-18.0); Immature Granulocyte Absolute 0.03 K/mm3 (0.00-0.031); Immature Granulocyte Percent A 0.3 % (0-0.5); Lymphocytes Absolute Auto 2.94 K/mm3 (0.9-3.2); Mean Corpuscular HGB Conc 30.2 g/dl (32-36); Mean Corpuscular Hemoglobin 23.3 pg (26-34); Mean Corpuscular Volume 77.3 fl (80-100); Mean Platelet Volume 11.2 fl (7.4-10.4); Monocytes Absolute Auto 0.7 K/mm3 (0.1-0.6); Monocytes Percent Auto 7.4 % (2.6-8.5); Neutrophils Absolute Auto 5.6 K/mm3 (1.3-6.7); Neutrophils Percent Auto 58.7 % (45.5-73.1); Platelet Count Result 304 k/mm3 (150-375); Red Cell Distribution Width 17.1 % (11.5-14.5); White Blood Count 9.5 K/mm3 (4.5-10.0)
[2024-09-27 15:21] LABS: Alanine Aminotransferase 16 U/L (6-50); Albumin Level 4.3 g/dL (3.5-5.1); Alkaline Phosphatase 92 U/L (38-126); Anion Gap 12 mmol/L (4-12); Aspartate Amino Transferase 23 U/L (17-59); Bilirubin,Total 1.1 mg/dL (0.2-1.3); Blood Urea Nitrogen 39 mg/dL (9-20); Calcium 10.3 mg/dL (8.4-10.2); Carbon Dioxide 25 mmol/L (22-30); Chloride 102 mmol/L (98-107); Estimated Glomerular Filt Rate 44; Glucose 142 mg/dL (65-110); Lipase 123 U/L (23-300); Potassium 4.2 mmol/L (3.4-5.0); Sodium 139 mmol/L (137-145)
[2024-09-27 15:29] LABS: NT Pro B Type Natriuretic Pept 134 pg/mL (19.9-100)
[2024-09-27 15:31] LABS: Troponin I 0.014 ng/mL (0.000-0.034)
[2024-09-27 15:40] LABS: D Dimer 0.38 ug/mL (<0.48)
[2024-09-27 15:45] LABS: Influenza A QL RT-PCR Negative (Negative); Influenza B QL RT-PCR Negative (Negative); RSV RNA, RT-PCR Negative (Negative); SARS-CoV-2 RNA PCR Negative (Negative)
[2024-09-27 15:59] LABS: Prothrombin Time 13.1 Seconds (11.1-14.7)
[2024-09-27 16:00] LABS: Partial Thromboplastin Time 35.4 Seconds (22.3-36.8)
[2024-09-27 16:01] LABS: Add Urine Microscopic? NO; Appearance Urine Clear (Clear); Bilirubin Urine Negative (Negative); Blood Urine Negative (Negative); Color Urine Yellow (Yellow); Glucose Urine UA Negative (Negative); Ketones Urine Negative (Negative); Leukocyte Esterase Ur Negative LEU/UL (Negative); Nitrate Urine Negative (Negative); Protein Urine Negative (Negative); Specific Grav Ur 1.011 (1.001-1.035); Urobilinogen Urine 0.2 mg/dL (<2.0); pH Urine 6.5 (5.0-9.0)
[2024-09-27 16:22] VITALS: BP 133/61; PULSE 72; RESP 16; TEMP 36.6; O2SAT 100
--- OUTSIDE RECORDS SUMMARY | 2024-09-27 16:35 | XMS_ITS | CONTINUITY OF CARE DOCUMENT ---
Author Name arash antoine Address Unknown Organization [facility] Address [address] [place] [address] Phone [phone] Care Team Providers Care Event Sales Representative Name Role Phone Luis THOMAS, Emmanuel Unavailable [...] Payer name Policy type / Coverage type Sebastian red republican ID UHC MEDICARE COMPLETE O Other [id number]
--- OUTSIDE RECORDS SUMMARY | 2024-09-27 16:35 | XMS_ITS | Clinical Summary ---
Author Organization [facility] Address [address] [place] [id number] Phone Care Team Providers Care Salvage Winder And Inspector Name Role Phone Naveen Lott MD Primary Care Provider [phone] Allergies No known active allergies Medications Medication [...] (09/09/2021): Added automatically from request for surgery [id number] History of carotid endarterectomy 04/13/2021 History of [...] Influenza Vaccine (#1) 2024 08/04/2021 Care Teams Salvage Winder And Inspector Relationship Specialty Start Date End Date Naveen Lott MD [address] [facility] [address] [address] [facility] [address] [place] [id number] PCP - General Internal Medicine 09/07/21
--- OUTSIDE RECORDS SUMMARY | 2024-09-27 16:35 | XMS_ITS | Clinical Summary ---
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 Overview (04/01/2021): Added automatically from request for surgery [id number] Weakness 03/08/2021 Coronary artery disease invo lving [place] coronary artery of [place] heart without angina pectoris 04/27/2017 S/P coronary [...] on file Legal Sex Male 9:17 AM NO BAKE MOLDER Gender Identity Not on file Sexual Orientation [...] CDT HEMOGLOBIN A1C Routine 10/04/2021 10:45 AM NO BAKE MOLDER Preop testing LIPID PANEL Routine 03/09/2021 5:04 [...] BLOOD ORDERABLES F inal Result VALERIE HOUSER [address] [place] [address] * (ABNORMAL) Hemoglobin A1c (10/04/2021 10:45 AM NO BAKE MOLDER) Hgb A1C 6.6(H) 4.0 - 5.6 % VALERIE HOUSER Estimated Average Glucose 143 mg/dL VALERIE HOUSER Comment: The ADA recommends reporting an estimated Average Glucose (eAG) with all Hemoglobin A1c results using the equation derived from a study of 507 normal and diabetic adults. ??Minority populations were underrepresented and children were not included. ?? (Diabetes Care 31:2148-8886, 2008). ??The eAG is not equivalent to a fasting glucose. Blood 10/04/2021 10:4 5 AM NO BAKE MOLDER 10/04/2021 11:11 AM NO BAKE MOLDER us Alexandre Godinez MD LAB BLOOD ORDERABLES Final Res ult VALERIE [address] [place] [address] * (ABNORMAL) Lipid panel (03/09/2021 5:04 AM [...] NP LAB BLOOD ORDERABLES Final Result VALERIE [address] Department [place] [address] from Last 3 Months or Most Recently Relevant to Health Maintenance Insurance MEDICARE SOLUTIONS MEDICARE SOLUTIONS MEDICARE SOLUTIONS [facility] MDCR HMO REF Advance Directives For more information, please contact: [phone] * Full Code (Latest Code Status on File) Date Activated Date Inactivated Comments 01/07/2023 9:03 PM 01/08/2023 8:55 PM * Full Code Date Activated Date Inactivated Comments 10/08/2021 6:40 PM 10/09/2021 6:54 PM * Full Code Date Activated Date Inactivated Comments 04/13/2021 8:38 PM 04/15/2021 9:43 PM * Full Code Date Activated Date Inactivated Comments 03/08/2021 12:34 PM 03/10/2021 11:12 PM Care Teams Fundraiser Relationship Specialty Start Date End Date Naveen Lott MD [address] [place] [address] PCP - General 12/02/16 [place] [address] [place] [address] Surgeon Neurosurgery 03/10/21 [place] [address] [facility] [address] [place] [address] Consulting Physician Neurology 03/10/21
--- OUTSIDE RECORDS SUMMARY | 2024-09-27 16:35 | XMS_ITS | Clinical Summary ---
Author Organization [email or web address] Address [address] [place] [address] Care Team Providers Care Mounter Name Role Phone Naveen Lott MD Primary Care Provider [phone] Source Comments [email or web address],non-owned Affiliates and Associated Physician Practices is amultiple site organization consisting of ambulatory clinics and hospital sitesin [place], [place], [place] and [place]. This disclosure is being madepursuant to the Care Everywhere program and may not contain all information available regarding this patient. Last updated 18.[email or web address] Allergies No known active allergies Medications * [...] age to complete this topic Care Teams Mounter Relationship Specialty Start Date End Date Naveen Lott MD [address] [place] [address] PCP - General 03/03/21
--- OUTSIDE RECORDS SUMMARY | 2024-09-27 16:35 | XMS_ITS | Clinical Summary ---
Author Organization [facility] Address [address] [place] [address]. [place], [place] [address] [place] [address] Care Team Providers Care Lath Tier Name Role Phone Unavailable Primary Care Provider [...] patient's age to complete this topic Insurance [facility] [place] [address]
--- OUTSIDE RECORDS SUMMARY | 2024-09-27 16:35 | XMS_ITS | Referral Summary ---
Author Organization [facility] [address] Address [address] [place] [address] Care Team Providers Care Jewelry Making Instructor Name Role Phone Naveen Lott MD Primary Care Provider Alexandre Godinez MD Unavailable [phone] Radha JIN MD, Can Bishop Unavailable Allergies No known active allergies Medications pantoprazole [...] (08/20/2021): Added automatically from request for surgery [id number] S/P carotid endarterectomy 04/13/2021 Stenosis of right carotid artery 04/01/2021 Overview (04/01/2021): Added automatically from request for surgery [id number] [facility] 03/08/2021 Coronary artery disease invo lving [place] coronary artery of [place] heart without angina pectoris 04/27/2017 S/P coronary [...] on file Legal Sex Male 9:17 AM POWERSAW SUPERVISOR Gender Identity Not on file Sexual Orientation [...] CDT HEMOGLOBIN A1C Routine 10/04/2021 10:45 AM POWERSAW SUPERVISOR Preop testing LIPID PANEL Routine 03/09/2021 5:04 AM CDT from Last 3 Months or Most Recently Relevant to Health Maintenance Results * eGFR (01/08/2023 5:31 AM CDT) Pathologist [facility] eGFR 59 mL/min/1. 73 m2 VALERIE HOUSER [...] BLOOD ORDERABLES F inal Result VALERIE HOUSER [address] Department [place] [address] * (ABNORMAL) Hemoglobin A1c (10/04/2021 10:45 AM POWERSAW SUPERVISOR) Pathologist [facility] Hgb A1C 6.6(H) 4.0 - 5.6 % VALERIE Estimated Average Glucose 143 mg/dL VALERIE HOUSER Comment: The ADA recommends reporting an estimated Average Glucose (eAG) with all Hemoglobin A1c results using the equation derived from a study of 507 normal and diabetic adults. ??Minority populations were underrepresented and children were not included. ?? (Diabetes Care 31:1037-3390, 2008). ??The eAG is not equivalent to a fasting glucose. Blood 10/04/2021 10:4 5 AM POWERSAW SUPERVISOR 10/04/2021 11:11 AM POWERSAW SUPERVISOR us Alexandre Godinez MD LAB BLOOD ORDERABLES Final Res ult VALERIE [address] Department [place] [address] * (ABNORMAL) Lipid panel (03/09/2021 5:04 AM CDT) [facility] Cholesterol 77 30 - 199 mg/dL VALERIE [...] NP LAB BLOOD ORDERABLES Final Result AMISHERASMO [address] Department [place] [address] from Last 3 Months or Most Recently Relevant to Health Maintenance Insurance MEDICARE SOLUTIONS [facility] MEDICARE Address: [address] [address] [place] [address] [facility] MEDIC[facility] Address: [address] [address] [place] [address] [facility] MEDICARE Address: [address] [address] [place] [id number] [facility] MEDICARE Address: [facility] [address] [place] [address] Advance Directives For more information, please contact: [phone] * Full Code (Latest Code Status on File) Date Activated Date Inactivated Comments 01/07/2023 9:03 PM 01/08/2023 8:55 PM * Full Code Date Activated Date Inactivated Comments 10/08/2021 6:40 PM 10/09/2021 6:54 PM * Full Code Date Activated Date Inactivated Comments 04/13/2021 8:38 PM 04/15/2021 9:43 PM * Full Code Date Activated Date Inactivated Comments 03/08/2021 12:34 PM 03/10/2021 11:12 PM Care Teams Jewelry Making Instructor Relationship Specialty Start Date End Date Naveen Lott MD [address] [place] [address] PCP - General 12/02/16 [place] [address] [place] [address] Surgeon Neurosurgery 03/10/21 [place] [address] [facility] [address] [place] [address] Consulting Physician Neurology 03/10/21
--- OUTSIDE RECORDS SUMMARY | 2024-09-27 16:35 | XMS_ITS | Referral Summary ---
Author Organization [facility] Address [address] [place] [address] Care Team Providers Care Burial Vault Setter Name Role Phone Naveen Lott MD Primary Care Provider [phone] [facility],non-owned Affiliates and Associated Physician Practices is amultiple site organization consisting of ambulatory clinics and hospital sitesin [place], [place], [place] and [place]. This disclosure is being madepursuant to the Care Everywhere program and may not contain all information available regarding this patient. Last updated 18.[facility] Allergies No known active allergies Medications * [...] of Treatment Not on file Care Teams Burial Vault Setter Relationship Specialty Start Date End Date Naveen Lott MD [address] [place] [address] PCP - General 03/03/21
--- OUTSIDE RECORDS SUMMARY | 2024-09-27 16:35 | XMS_ITS | Patient Health Summary ---
Author Organization [facility] Address [address] [place] [address] Care Team Providers Care Sheet Rock Installer Name Role Phone Naveen Lott MD Primary Care Provider [phone] Note from [facility][note 3],non-owned Affiliates and Associated Physician Practices is amultiple site organization consisting of ambulatory clinics and hospital sitesin [place], [place], [place] and [place]. This disclosure is being madepursuant to the Care Everywhere program and may not contain all information available regarding this patient. Last updated 18.[facility] [employer] Allergies No known active allergies Medications * [...] Sexual Orientation Not on file Care Teams Sheet Rock Installer Relationship Specialty Start Date End Date Naveen Lott MD [address] [place] [address] PCP - General 03/03/21
== END 2024-09-27 17:17 | disposition home or self-care (01) ==
PROVIDERS: Registered Nurse; Emergency Provider Family Medicine; PCP Family Medicine
DX: F41.9 Anxiety disorder, unspecified (principal); I12.9 Hypertensive chronic kidney disease with stage 1 through stage 4 chronic kidney disease, or unspecified chronic kidney disease; E11.22 Type 2 diabetes mellitus with diabetic chronic kidney disease; N18.30 Chronic kidney disease, stage 3 unspecified; I25.10 Atherosclerotic heart disease of native coronary artery without angina pectoris; I65.29 Occlusion and stenosis of unspecified carotid artery; I70.1 Atherosclerosis of renal artery; E11.40 Type 2 diabetes mellitus with diabetic neuropathy, unspecified; E11.51 Type 2 diabetes mellitus with diabetic peripheral angiopathy without gangrene; I73.9 Peripheral vascular disease, unspecified; E78.2 Mixed hyperlipidemia; Z95.5 Presence of coronary angioplasty implant and graft; Z85.038 Personal history of other malignant neoplasm of large intestine; Z87.891 Personal history of nicotine dependence; Z90.49 Acquired absence of other specified parts of digestive tract; Z98.49 Cataract extraction status, unspecified eye; Z79.02 Long term (current) use of antithrombotics/antiplatelets; R06.02 Shortness of breath; Z79.82 Long term (current) use of aspirin; Z79.899 Other long term (current) drug therapy; Z79.84 Long term (current) use of oral hypoglycemic drugs; I44.0 Atrioventricular block, first degree; I51.7 Cardiomegaly
CPT/HCPCS: 36415; 71046; 80053; 81003; 83690; 83880; 84484; 85025; 85380; 85610; 85730; 87637; 93005; 99284

== ENCOUNTER 2025-01-20 09:36 | Outpatient (CLI) | payer MEDICARE, SELFPAY ==
--- NOTE | ~2025-01-20 | XR_ITS ---
XR chest 2V Ordering provider: John Adams MD History: 84 years Male with . R06.02 - Shortness of breath . Comparison: September 27, 2023. FINDINGS: MEDIASTINUM: The cardiac silhouette is not enlarged. Congestive jossie. LUNGS: No infiltrates, effusions or pneumothorax. Underlying emphysematous changes. OTHER: No free air under the diaphragm. Degenerative changes of the spine. IMPRESSION: No acute cardiopulmonary pathology. Reviewed, dictated and finalized at location A.
--- OUTSIDE RECORDS SUMMARY | 2025-01-20 10:07 | XMS_ITS | CONTINUITY OF CARE DOCUMENT ---
Author Name arash antoine Address Unknown Organization [facility] Address [address] [address] [place] [address] Phone [phone] Care Team Providers Care Music Department Chair Name Role Phone Luis THOMAS, Emmanuel Unavailable [phone] KASIA THOMAS, ALFONSO Unavailable APOLINAR THOMAS, NAZANIN [...] Payer name Policy type / Coverage type [place] red democrat ID UHC MEDICARE COMPLETE O Other [id number]
--- OUTSIDE RECORDS SUMMARY | 2025-01-20 10:07 | XMS_ITS | Clinical Summary ---
Author Organization [facility] [address] [facility] [address] [place] [address] Care Team Providers Care Bone Cooking Operator Name Role Phone Naveen Lott MD Primary Care Provider Alexandre Godinez MD Unavailable [phone] Radha JIN MD, Can Bishop Unavailable [phone] Allergies No known active allergies Medications pantoprazole [...] AFTERNOON AND TAKE 2 TABLETS AT NIGHT 150 tablet 2 5 Active Active Problems Problem Noted Date Diagnosed Date High creatinine 01/08/2023 Bandemia 01/08/2023 Stenosis of left carotid artery 01/08/2023 Vertebral artery stenosis, left 01/08/2023 Acute nonintractable headache, unspecified heada beto type 01/07/2023 Paroxysmal atrial fibrillation 03/22/2022 Pure hypercholesterolemia 10/09/2021 Primary hypertension 10/09/2021 Type 2 diabetes mellitus wit h hyperglycemia, without long-term current use of insulin 10/09/2021 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 10/09/2021 Spinal stenosis in cervical region 08/20/2021 Overview (08/20/2021): Added automatically from request for surgery [id number] S/P carotid endarterectomy 04/13/2021 Stenosis of right carotid artery 04/01/2021 Overview (04/01/2021): Added automatically from request for surgery [id number] Weakness 03/08/2021 Coronary artery disease invo lving [place] coronary artery of [place] heart without angina pectoris 04/27/2017 S/P coronary artery stent placement 04/27/2017 Bradycardia Surgical History Surgery Date Site/Laterality Comments CAROTID ENARTERECTOMYY 09/04/2006 - 09/03/2007 Left Carotid Endarterectomy CARDIAC STENT PLACEMENT 09/04/2006 - 09/03/2007 COLONOSCOPY W/ POLYPECTOMY CATARACT EXTRACTION, BILATERAL COLECTOMY CHOLECYSTECTOMY CAROTID ENDARTERECTOMY 09/04/2020 - 09/03/2021 Right Medical History Medical History Date Comments Hypertension Coronary artery disease Atrial fibrillation (HCC) flutte r Type 2 diabetes mellitus (HCC) Renal artery stenosis 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 Denies 09/29/2024 Sex and Gender Information Value Date Recorded Sex Assigned at Not on file Legal Sex Male 9:17 AM FEDERAL JUDGE Gender Identity Not on file Sexual Orientation Not on file Obstetrics History Last Filed Vital Signs Vital Sign Reading Time Taken Comments Blood Pressure 139/43 09/29/2024 10:05 PM FEDERAL JUDGE Pulse 63 09/29/2024 10:05 PM FEDERAL JUDGE Temperature 36.9 C (98.5 F) 09/29/2024 10:05 PM FEDERAL JUDGE Respiratory Rate 19 09/29/2024 10:05 PM FEDERAL JUDGE Oxygen Saturation 93% 09/29/2024 10:05 PM FEDERAL JUDGE Inhaled Oxygen Concentration - - Weight 86.2 kg (190 lb 0.6 oz) 09/29/2024 3:08 P M FEDERAL JUDGE Height 165.1 cm (5' 5 ) 09/29/2024 3:08 PM FEDERAL JUDGE Body Mass Index 31.62 09/29/2024 3:08 PM FEDERAL JUDGE Plan of Treatment Health Maintenance Due Date Last Done Comments Albumin Creatinine Ratio, Urine 1942 Depression Screening 1942 Dilated Eye Exam 1942 Foot Exam 1942 DTaP/Tdap/Td Vaccine (1 - Tdap) 1953 Hepatitis B Screening 1960 Well Visit 65+ 2007 Zoster Vaccine (2 of 3) 07/26/2016 05/31/2016 Pneumococcal vaccine 65+ (2 of 2 - PPSV23) 09/29/2021 08/04/2021, 09/10/2015 Lipid Panel 03/09/2022 03/09/2021, 04/27/2017 Hemoglobin A1C 04/03/2022 10/04/2021, 03/09/2021 Fall Risk Assessment 01/09/2024 01/08/2023, 06/09/20 20 Influenza Vaccine (Season Ended) 2025 08/04/2021, 05/18/2020, 06/03/2017, Additional history exists eGFR 09/29/2025 09/29/2024, 05/0 03/2023, 01/07/2023, Additional history exists Abdominal Aortic Aneurysm (A AA) Screen Completed 09/29/2024 Procedures Procedure Name Priority Date/Time Associated Diagnosis Comments CT ABDOMEN PELVIS WO CONTRAST ED 09/29/2024 6:43 PM FEDERAL JUDGE EGFR STAT 09/29/2024 3:13 PM FEDERAL JUDGE HEMOGLOBIN A1C Routine 10/04/2021 10:45 AM FEDERAL JUDGE Preop testing LIPID PANEL Routine 03/09/2021 5:04 AM CDT from Last 3 Months or Most Recently Relevant to Health Maintenance Results * CT Abdomen Pelvis WO Contrast (09/29/2024 6:43 PM FEDERAL JUDGE) Anatomical Region Laterality Modality Body N/A Computed Tomogra phy 09/29/2024 6:41 PM FEDERAL JUDGE Impressions 09/29/2024 11:18 PM FEDERAL JUDGE 1. Minimal nonspecific bilateral perinephric stranding. No acute urinary tract findings otherwise. 2. Low stool burden with colonic diverticulosis. No acute bowel findings otherwise. 3. Enlarged prostate with distended urinary bladder. See discussion above. Stat report by [facility] Electronically signed by: Oswaldo Botello M.D. Narrative 09/29/2024 11:18 PM FEDERAL JUDGE EXAMINATION: CT ABDOMEN PELVIS WO CONTRAST DATE: 09/29/2024 6:25 PM CLINICAL HISTORY: Abdominal pain, acute, nonlocalized TECHNIQUE: Axial CT imaging of the abdomen and pelvis performed without oral or intravenous contrast. 2-D Reformatted images are obtained. Evaluation of solid organs, bowel wall and vascular structures is limited due to the lack of IV contrast. COMPARISON: None FINDINGS: Lungs: Calcified granulomas in lung bases. Probable mild pulmonary emphysema. Heart: Normal heart size with coronary calcification. Liver: Normal. No mass. Gallbladder and biliary ducts: Absent gallbladder. No bile duct dilatation. Pancreas: Normal. No ductal dilation. Spleen: Normal. No splenomegaly. Adrenal glands: Normal. No mass. Kidneys and ureters: Bilateral minimal nonspecific perinephric stranding. No hydronephrosis or obstructing calculi. Exophytic left lower renal pole hypodense lesion, likely simple cyst measuring 12 mm. Stomach and bowel: Low amount of fecal retention. No obvious bowel dilatation, pneumatosis or suspicious bowel wall thickening however assessment is limited due to lack of contrast. Colonic diverticulosis. Appendix: No evidence of appendicitis. Intraperitoneal space: Unremarkable. No free air. No significant fluid collection. Vasculature: Extensive arterial calcifications without aortic aneurysm. Heavily calcified plaque at the SMA origin. Lymph nodes: No enlarged lymph nodes. Urinary bladder: Somewhat distended urinary bladder. Urinary tension should be excluded clinically. No obvious bladder wall thickening. Reproductive: Enlarged prostate. Bones/joints: Multilevel vertebral disc degeneration and endplate osteophytes. No acute osseous findings otherwise. Soft tissues: Bilateral tiny fat-containing inguinal hernias. No acute soft tissue findings otherwise. Procedure Note Oswaldo Botello MD - 09/29/2024 EXAMINATION: CT ABDOMEN PELVIS WO CONTRAST DATE: 09/29/2024 6:25 PM CLINICAL HISTORY: Abdominal pain, acute, nonlocalized TECHNIQUE: Axial CT imaging of the abdomen and pelvis performed without oral or intravenous contrast. 2-D Reformatted images are obtained. Evaluation of solid organs, bowel wall and vascular structures is limited due to the lack of IV contrast. COMPARISON: None FINDINGS: Lungs: Calcified granulomas in lung bases. Probable mild pulmonary emphysema. Heart: Normal heart size with coronary calcification. Liver: Normal. No mass. Gallbladder and biliary ducts: Absent gallbladder. No bile duct dilatation. Pancreas: Normal. No ductal dilation. Spleen: Normal. No splenomegaly. Adrenal glands: Normal. No mass. Kidneys and ureters: Bilateral minimal nonspecific perinephric stranding. No hydronephrosis or obstructing calculi. Exophytic left lower renal pole hypodense lesion, likely simple cyst measuring 12 mm. Stomach and bowel: Low amount of fecal retention. No obvious bowel dilatation, pneumatosis or suspicious bowel wall thickening however assessment is limited due to lack of contrast. Colonic diverticulosis. Appendix: No evidence of appendicitis. Intraperitoneal space: Unremarkable. No free air. No significant fluid collection. Vasculature: Extensive arterial calcifications without aortic aneurysm. Heavily calcified plaque at the SMA origin. Lymph nodes: No enlarged lymph nodes. Urinary bladder: Somewhat distended urinary bladder. Urinary tension should be excluded clinically. No obvious bladder wall thickening. Reproductive: Enlarged prostate. Bones/joints: Multilevel vertebral disc degeneration and endplate osteophytes. No acute osseous findings otherwise. Soft tissues: Bilateral tiny fat-containing inguinal hernias. No acute soft tissue findings otherwise. IMPRESSION: 1. Minimal nonspecific bilateral perinephric stranding. No acute urinary tract findings otherwise. 2. Low stool burden with colonic diverticulosis. No acute bowel findings otherwise. 3. Enlarged prostate with distended urinary bladder. See discussion above. Stat report by [facility] Electronically signed by: Oswaldo Botello M.D. us Reese Waller MD IMG CT PROCEDURES Final Result * (ABNORMAL) eGFR (09/29/2024 3:13 PM FEDERAL JUDGE) eGFR 36(L) >=60 mL/min/1. 73 m2 Comment: Interpretive Data Reference Interval Normal >/= 90 mL/min/1.73m2 Mildly decreased* 60 - 89 mL/min/1.73m2 Mildly to moderately decreased 45 - 59 mL/min/1.73m2 Moderately to severely decreased 30 - 44 mL/min/1.73m2 Severely decreased 15 - 29 mL/min/1.73m2 Kidney Failure < 15 mL/min/1.73m2 *Relative to young adult level Estimated glomerular [...] interpretive data was last reviewed 2021. Blood 09/29/2024 3:13 PM FEDERAL JUDGE 09/29/2024 3:18 PM FEDERAL JUDGE Reese Waller MD LAB BLOOD ORDERABLES nal Result VALERIE [address] Department [place] [address] * (ABNORMAL) Hemoglobin A1c (10/04/2021 10:45 AM FEDERAL JUDGE) Hgb A1C 6.6(H) 4.0 - 5.6 % VALERIE HOUSER Estimated Average Glucose 143 mg/dL VALERIE HOUSER Comment: The ADA recommends reporting an estimated Average Glucose (eAG) with all Hemoglobin A1c results using the equation derived from a study of 507 normal and diabetic adults. Minority populations were underrepresented and children were not included. (Diabetes Care 31:7764-6605, 2008). The eAG is not equivalent to a fasting glucose. Blood 10/04/2021 10:4 5 AM FEDERAL JUDGE 10/04/2021 11:11 AM FEDERAL JUDGE us Alexandre Godinez MD LAB BLOOD ORDERABLES Final Res ult VALERIE [address] Department [place] [address] * (ABNORMAL) Lipid panel (03/09/2021 5:04 AM CDT) Cholesterol 77 30 - 199 mg/dL VALERIE HOUSER Comment: Interpretive Data Ages < or = 19 years Acceptable: <170 mg/dL Borderline high: 170-199 mg/dL High: >or= 200 mg/dL Ages > or = 20 years Desirable: <200 mg/dL Borderline high: 200-239 mg/dL High: >or= 240 mg/dL Literature References: 1. Expert Panel on Integrated Guidelines for Cardiovascular Health and Risk Reduction in Children and Adolescents. Pediatrics 2011;128:S213 2. NCEP Expert Panel. Circulation 2004;110:227 Current Interpretive Data was last revised on 2018. Triglycerides 99 <=149 mg/dL VALERIE HOUSER Comment: Interpretive Data Ages < or = 9 years Acceptable: <75 mg/dL Borderline high: 75-99 mg/dL High: >or= 100 mg/dL Ages 10 to 20 years Acceptable: <90 mg/dL Borderline high: 90-129 mg/dL High: >or= 130 mg/dL Ages > or = 20 years Desirable: <150 mg/dL Borderline high: 150-199 mg/dL High: 200-499 mg/dL Very high: >or= 499 mg/dL Literature References: 1. Expert Panel on Integrated Guidelines for Cardiovascular Health and Risk Reduction in Children and Adolescents. Pediatrics 2011;128:S213 2. NCEP Expert Panel. Circulation 2004;110:227 Current Interpretive Data was last revised on 2018. HDL 31(L) >=40 mg/dL VALERIE HOUSER Comment: Interpretive Data Ages < or = 19 years Acceptable: >45 mg/dL Borderline low: 40-45 mg/dL Low: <40 mg/dL Ages > or = 20 years Desirable: >or= 60 mg/dL Low: <40 mg/dL Literature References: 1. Expert Panel on Integrated Guidelines for Cardiovascular Health and Risk Reduction in Children and Adolescents. Pediatrics 2011;128:S213 2. NCEP Expert Panel. Circulation 2004;110:227 Current Interpretive Data was last revised on 2018. LDL, calculated 26 <=129 mg/dL VALERIE HOUSER Comment: Interpretive Data Ages < or = 19 years Acceptable: <110 mg/dL Borderline high: 110-129 mg/dL High: >or= 130 mg/dL Ages > or = 20 years Optimal: <100 mg/dL Near optimal: 100-129 mg/dL Borderline high: 130-159 mg/dL High: >160 mg/dL Literature References: 1. Expert Panel on Integrated Guidelines for Cardiovascular Health and Risk Reduction in Children and Adolescents. Pediatrics 2011;128:S213 2. NCEP Expert Panel. Circulation 2004;110:227 Current Interpretive Data was last revised on 2018. Non-HDL Cholesterol 46 mg/dL VALERIE HOUSER Comment: Interpretive Data Ages < or = 19 years Acceptable: <120 mg/dL Borderline high: 120-144 mg/dL High: >145 mg/dL Ages > or = 20 years When triglycerides are >200 mg/dL, Non-HDL cholesterol is a secondary target of therapy with treatment goals that are 30 mg/dL greater than the LDL cholesterol target. Literature References: 1. Expert Panel on Integrated Guidelines for Cardiovascular Health and Risk Reduction in Children and Adolescents. Pediatrics 2011;128:S213 2. NCEP Expert Panel. Circulation 2004;110:227 Current Interpretive Data was last revised on 2018. Chol/HDL ratio 2 VALERIE HOUSER Blood specimen (specimen) 03/09/2021 5:04 AM CDT 03/09/2021 5:22 AM CDT us Emily Newman NP LAB BLOOD ORDERABLES Final Result VALERIE HOUSER [address] [place] [address] from Last 3 Months or Most Recently Relevant to Health Maintenance Insurance [facility] MEDICARE ADVANTAGE [facility] Address: [address] [address] [place] [address] [facility] Address: [address] [address] [place] [address] [facility] Address: [address] [address] [place] [address] [facility] MDCR HMO REF [facility] Address: [facility] [address] [place] [address] Advance Directives For more information, please contact: [phone] * Full Code (Latest Code Status on File) Date Activated Date Inactivated Comments 01/07/2023 9:03 PM 01/08/2023 8:55 PM * Full Code Date Activated Date Inactivated Comments 10/08/2021 6:40 PM 10/09/2021 6:54 PM * Full Code Date Activated Date Inactivated Comments 04/13/2021 8:38 PM 04/15/2021 9:43 PM * Full Code Date Activated Date Inactivated Comments 03/08/2021 12:34 PM 03/10/2021 11:12 PM Care Teams Bone Cooking Operator Relationship Specialty Start Date End Date Naveen Lott MD [address] [place] [address] PCP - General 12/02/16 [place] [address] [place] [address] Surgeon Neurosurgery 03/10/21 [place] [address] [facility] [address] [address] Consulting Physician Neurology 03/10/21
--- OUTSIDE RECORDS SUMMARY | 2025-01-20 10:08 | XMS_ITS | Referral Summary ---
Author Organization [facility] [address] [facility] [address] [place] [address] Care Team Providers Care Bessemer Converter Blower Name Role Phone Naveen Lott MD Primary Care Provider Alexandre Godinez MD Unavailable [phone] Radha JIN MD, Can Bishop Unavailable [phone] Allergies No known active allergies Medications pantoprazole [...] (08/20/2021): Added automatically from request for surgery [id number] S/P carotid endarterectomy 04/13/2021 Stenosis of right carotid artery 04/01/2021 Overview (04/01/2021): Added automatically from request for surgery [id number] [facility] 03/08/2021 Coronary artery disease invo lving ho-chunk coronary artery of ho-chunk heart without angina pectoris 04/27/2017 S/P coronary [...] on file Legal Sex Male 9:17 AM STUDIO HAND Gender Identity Not on file Sexual Orientation Not on file Last Filed Vital Signs Vital Sign Reading Time Taken Comments Blood Pressure 139/43 09/29/2024 10:05 PM STUDIO HAND Pulse 63 09/29/2024 10:05 PM STUDIO HAND Temperature 36.9 C (98.5 F) 09/29/2024 10:05 PM STUDIO HAND Respiratory Rate 19 09/29/2024 10:05 PM STUDIO HAND Oxygen Saturation 93% 09/29/2024 10:05 PM STUDIO HAND Inhaled Oxygen Concentration - - Weight 86.2 kg (190 lb 0.6 oz) 09/29/2024 3:08 P M STUDIO HAND Height 165.1 cm (5' 5 ) 09/29/2024 3:08 PM STUDIO HAND Body Mass Index 31.62 09/29/2024 3:08 PM STUDIO HAND Plan of Treatment Not on file Procedures Procedure Name Priority Date/Time Associated Diagnosis Comments CT ABDOMEN PELVIS WO CONTRAST ED 09/29/2024 6:43 PM STUDIO HAND EGFR STAT 09/29/2024 3:13 PM STUDIO HAND HEMOGLOBIN A1C Routine 10/04/2021 10:45 AM STUDIO HAND Preop testing LIPID PANEL Routine 03/09/2021 5:04 AM CDT from Last 3 Months or Most Recently Relevant to Health Maintenance Results * CT Abdomen Pelvis WO Contrast (09/29/2024 6:43 PM STUDIO HAND) Anatomical Region Laterality Modality Body N/A Computed Tomogra phy 09/29/2024 6:41 PM STUDIO HAND Impressions 09/29/2024 11:18 PM STUDIO HAND 1. Minimal nonspecific bilateral perinephric stranding. No acute urinary tract findings otherwise. 2. Low stool burden with colonic diverticulosis. No acute bowel findings otherwise. 3. Enlarged prostate with distended urinary bladder. See discussion above. Stat report by [facility] Electronically signed by: Oswaldo Botello M.D. Narrative 09/29/2024 11:18 PM STUDIO HAND EXAMINATION: CT ABDOMEN PELVIS WO CONTRAST DATE: [...] bladder. See discussion above. Stat report by [facility] Electronically signed by: Oswaldo Botello M.D. Reese Waller MD IMG CT PROCEDURES Final Result * (ABNORMAL) eGFR (09/29/2024 3:13 PM STUDIO HAND) eGFR 36(L) >=60 mL/min/1. 73 m2 Comment: [...] last reviewed 2021. Blood 09/29/2024 3:13 PM STUDIO HAND 09/29/2024 3:18 PM STUDIO HAND Reese Waller MD LAB BLOOD ORDERABLES nal Result VALERIE [address] Department [place] [address] * (ABNORMAL) Hemoglobin A1c (10/04/2021 10:45 AM STUDIO HAND) Hgb A1C 6.6(H) 4.0 - 5.6 % VALERIE HOUSER Estimated Average Glucose 143 mg/dL VALERIE HOUSER Comment: The ADA recommends reporting an estimated Average Glucose (eAG) with all Hemoglobin A1c results using the equation derived from a study of 507 normal and diabetic adults. Minority populations were underrepresented and children were not included. (Diabetes Care 31:2100-8290, 2008). The eAG is not equivalent to a fasting glucose. Blood 10/04/2021 10:4 5 AM STUDIO HAND 10/04/2021 11:11 AM STUDIO HAND us Alexandre Godinez MD LAB BLOOD ORDERABLES Final Res ult VALERIE HOUSER [address] Department [place] [address] * (ABNORMAL) Lipid panel (03/09/2021 5:04 AM [...] LAB BLOOD ORDERABLES Final Result VALERIE HOUSER [address] Department [place] [address] from Last 3 Months or Most Recently Relevant to Health Maintenance Insurance [facility] ADVANTAGE [facility] Address: [address] [address] [place] [address] [facility] AD[facility]ANTAGE [facility] Address: [address] [address] [place] [address] [facility]AGE [facility] Address: [address] [address] [place] [address] [facility] Address: [facility] [address] [place] [address] Advance Directives For more information, please contact: [phone] * Full Code (Latest Code Status on File) Date Activated Date Inactivated Comments 01/07/2023 9:03 PM 01/08/2023 8:55 PM * Full Code Date Activated Date Inactivated Comments 10/08/2021 6:40 PM 10/09/2021 6:54 PM * Full Code Date Activated Date Inactivated Comments 04/13/2021 8:38 PM 04/15/2021 9:43 PM * Full Code Date Activated Date Inactivated Comments 03/08/2021 12:34 PM 03/10/2021 11:12 PM Care Teams Bessemer Converter Blower Relationship Specialty Start Date End Date Naveen Lott MD [address] [place] [address] PCP - General 12/02/16 [place] [address] [place] [address] Surgeon Neurosurgery 03/10/21 [place] [address] [facility] [address] [place] [address] Consulting Physician Neurology 03/10/21
--- OUTSIDE RECORDS SUMMARY | 2025-01-20 10:08 | XMS_ITS | Clinical Summary ---
Author Organization [facility] Address [address] [place] [address] Care Team Providers Care Project Leader Name Role Phone Naveen Lott MD Primary Care Provider [phone] Source Comments [facility],non-owned Affiliates and Associated Physician Practices is amultiple site organization consisting of ambulatory clinics and hospital sitesin [place], [place], [place] and [place]. This disclosure is being madepursuant to the Care Everywhere program and may not contain all information available regarding this patient. Last updated 18.[facility] Allergies No known active allergies Medications * Be aware that medications may not be up to date on this document. Alwaysverify current medications with the patient. aspirin (ASPIRIN) 81 MG chew tablet Take 81 mg by mouth Active atorvastatin (LIPITOR) 40 MG tablet Take 40 mg by mouth once daily 1 Active cloNIDine (CATAPRES) 0.2 MG tablet Take 0.1 mg by mouth 3 times daily 1 Active gabapentin (NEURONTIN) 100 MG capsule Take 100 mg by mouth 3 times daily 1 Active irbesartan (AVAPRO) 300 MG tablet Take 300 mg by mouth once daily 2 Active metFORMIN (GLUCOPHAGE) 500 MG tablet Take 500 mg by mouth once daily 1 Active pantoprazole EC (PROTONIX) 40 MG tablet Take 40 mg by mouth once daily 1 Active iron polysaccharides (NIFEREX 150) 150 MG capsule Take 150 mg by mouth once daily 1 Active tamsulosin (FLOMAX) 0.4 MG capsule Take 0.4 mg by mouth once daily 1 Active Family History Medical History Relation Name [...] at Not on file Legal Sex Male 9:43 AM CDT Gender Identity Not on file Sexual Orientation Not on file Plan of Treatment Health Maintenance Due Date Last Done Comments DTAP/TDAP/TD VACCINES (1 - Tdap) 1961 PNEUMOCOCCAL VACCINE 50+ (1 of 1 - PCV) 1992 ZOSTER VACCINE (1 of 2) 1992 Respiratory Syncytial Virus (RSV) Vaccine Pt: or over 60 yrs (1 - 1-dose 75+ series) 2017 COVID-19 VACCINE ( - 2023-2 5 season) 2024 DEPRESSION SCREENING 09/04/2024 MEDICARE AWV CALENDAR YEAR 2024 INFLUENZA VACCINE (Season Ended) 2025 08/04/20 21 HEPATITIS B VACCINE Aged Out No longe r eligible based on patient's age to complete this topic HIB VACCINE Aged Out No longer eligi ble based on patient's age to complete this topic HPV VACCINE Aged Out No longer eligi ble based on patient's age to complete this topic MENINGOCOCCAL (Group B) VACC INE SHARED DECISION-MAKING Aged Out No longer eligibl e based on patient's age to complete this topic MENINGOCOCCAL GROUPS A/C/Y/W VACCINE Aged Out No longer eligible b ased on patient's age to complete this topic Insurance [facility] MANAGED MEDICARE [place] [id number] [facility] MANAGED MEDICARE ADV Care Teams Project Leader Relationship Specialty Start Date End Date Naveen Lott MD [address] [place] [address] PCP - General 03/03/21
--- OUTSIDE RECORDS SUMMARY | 2025-01-20 10:08 | XMS_ITS | Clinical Summary ---
Author Organization [facility] Address [address] [place] [address] Care Team Providers Care Firearms Instructor Name Role Phone Unavailable Primary Care Provider [...] Annual Medicare Wellness Visit 2007 Pneumococcal Vaccine: 50+ Ye ars (2 of 2 - PPSV23) 09/10/2016 09/10/2015 RSV Immunization or 60+ Years (1 - 1-dose 75+ series) 2017 COVID-19 Vaccine ( - 2023-2 5 season) 2024 Meningococcal B Vaccine Aged Out No l onger eligible based on patient's age to complete this topic Meningococcal Vaccine Aged Out No kimberly elza eligible based on patient's age to complete this topic RSV Immunizations Under 20 Months Aged Out No longer eligible based on patient's age to complete this topic Insurance [facility]
--- OUTSIDE RECORDS SUMMARY | 2025-01-20 10:08 | XMS_ITS | Clinical Summary ---
Author Organization [facility] Address [address] [place] [address] Phone Care Team Providers Care Drop Wire Operator Name Role Phone Naveen Lott MD Primary Care Provider Allergies No known active allergies Medications atorvastatin (LIPITOR) 40 MG tablet 1 Active cloNIDine (CATAPRES) 0.1 MG tablet 3 (three) times a day 1 Active gabapentin (NEURONTIN) 100 MG capsule 1 Active Accu-Chek Guide test strip 1 Active irbesartan (AVAPRO) 300 MG tablet 2 Active metFORMIN XR 500 MG 24 hr tablet 1 Active pantoprazole (PROTONIX) 40 MG EC tablet 1 Active iron polysaccharides (NU-IRON) 150 MG capsule 1 Active tamsulosin (FLOMAX) 0.4 MG 24 hr capsule 02 1 Active iron polysaccharides (NU-IRON) 150 MG capsule Take 150 mg by mouth 1 (one) time each day Active aspirin 81 MG chewable tablet Chew 81 mg 1 (one) time each day Active hydroCHLOROthiazide (HYDRODIURIL) 25 MG tablet Take 1 tablet (25 mg total) by mouth 1 (one) time each day 30 tablet 11 2 Active NIFEdipine CC (ADALAT CC) 60 MG 24 hr tablet TAKE 1 TABLET BY MOUTH ONCE DAILY. DO NOT CRUSH, CHEW, OR SPLIT. 90 tablet 1 2 Active Active Problems Problem Noted Date Diagnosed Date Spinal stenosis of cervical region 08/20/2021 Overview (09/09/2021): Added automatically from request for surgery [id number] History of carotid endarterectomy 04/13/2021 History of placement of stent for coronary arter y disease 04/27/2017 Coronary arteriosclerosis 12/15/2007 Hyperlipidemia 12/15/2007 Hypertension 12/15/2007 Peripheral vascular disease 12/15/2007 Immunizations Immunization Administration Dates Next Due Influenza TIV (IM) [...] at Not on file Legal Sex Male 1:43 PM [facility] Gender Identity Not on file Sexual Orientation Not on file Last Filed Vital Signs Vital Sign Reading Time Taken Comments Blood Pressure 122/82 03/24/2022 11:22 AM CDT Pulse 60 03/24/2022 11:22 AM CDT Temperature 36.7 C (98 F) 03/24/2022 11:22 AM CDT Respiratory Rate - - Oxygen Saturation - - Inhaled Oxygen Concentration - - Weight 84.4 kg (186 lb) 03/24/2022 11:22 AM CDT Height 167.6 cm (5' 6 ) 03/24/2022 11:22 AM CDT Body Mass Index 30.02 03/24/2022 11:22 AM CDT Plan of Treatment Health Maintenance Due Date Last Done Comments Pneumococcal PPSV23/PCV13 65 + Years / Low and Medium Risk (1 of 4 - PCV) 1992 Influenza Vaccine (Season Ended) 2025 08/04/20 21 Insurance Care Teams Drop Wire Operator Relationship Specialty Start Date End Date Naveen Lott MD [address] [facility] [address] [facility] [address] [place] [address] PCP - General Internal Medicine 09/07/21
== END 2025-01-20 09:37 | disposition home or self-care (01) ==
PROVIDERS: PCP Family Medicine; Visit Provider Internal Medicine Nephrology
DX: R06.02 Shortness of breath (principal); N18.30 Chronic kidney disease, stage 3 unspecified
CPT/HCPCS: 71046

== ENCOUNTER 2025-02-09 20:39 | Emergency (ER) | payer MEDICARE, SELFPAY ==
--- NOTE | ~2025-02-09 | XR_ITS ---
EXAMINATION: XR chest 2V Exam Date/Time: 02/09/2025 21:29 CDT HISTORY: coughing up yellow stuff Comparison: 01/20/2025. RESULT: Lines, tubes, and devices: None. Lungs and pleura: No focal consolidation, pleural effusion, or pneumothorax. Emphysematous/senescent change. Minimal bibasilar scar/atelectasis. Cardiomediastinal silhouette: Stable. Other: No acute osseous or upper abdominal finding. IMPRESSION: No acute cardiopulmonary process. Reviewed, dictated and finalized at location K.
--- NOTE | ~2025-02-09 | CT_ITS ---
Clinical Indication: Shortness of breath CT Scan of the Chest with Contrast: Technique: Contiguous sections were acquired throughout the chest after intravenous administration of 100 cc of Omnipaque 350. Dose reduction technique was used on this scan by utilizing automated expos ure control and iterative reconstruction technique. The dose-length product (DLP) was 645.88 mGy-cm. Findings: There is no evidence of any significant mediastinal, hilar or axillary lymphadenopathy. There is no f illing defect in the pulmonary arterial tree to suggest pulmonary embolus. There is no evidence of ao rtic dissection or aneurysm. There is no evidence of pleural or pericardial effusion. Moderate to advanced emphysema noted. Calcified right basilar granulomas are present. Images through the upper abdomen reveal no abnormalities. Impression: No evidence of pulmonary embolus, aortic dissection, or aortic aneurysm. Moderate to advanced emphysema. Reviewed, dictated and finalized at [facility]. Impression: No evidence of pulmonary embolus, aortic dissection, or aortic aneurysm. Moderate to advanced emphysema.
--- OUTSIDE RECORDS SUMMARY | 2025-02-09 20:41 | XMS_ITS | Clinical Summary ---
Author Organization [facility] [address] Address [address] [place] [address] Care Team Providers Care Gas Maker Name Role Phone Naveen Lott MD Primary Care Provider Alexandre Godinez MD Unavailable [phone] Radha JIN MD, Can Bishop Unavailable [phone] Allergies No known active allergies Medications pantoprazole [...] (08/20/2021): Added automatically from request for surgery [id number] S/P carotid endarterectomy 04/13/2021 Stenosis of right carotid artery 04/01/2021 Overview (04/01/2021): Added automatically from request for surgery [id number] [facility] 03/08/2021 Coronary artery disease invo lving redding coronary artery of redding heart without angina pectoris 04/27/2017 S/P coronary [...] Shingles (herpes zoster) polyneuropathy Colon cancer (HCC) 2016 GERD (gastroesophageal reflux disease) Arthritis [...] on file Legal Sex Male 9:17 AM DINING CAR STEWARD Gender Identity Not on file Sexual Orientation Not on file Obstetrics History Last Filed Vital Signs Vital Sign Reading Time Taken Comments Blood Pressure 139/43 09/29/2024 10:05 PM DINING CAR STEWARD Pulse 63 09/29/2024 10:05 PM DINING CAR STEWARD Temperature 36.9 C (98.5 F) 09/29/2024 10:05 PM DINING CAR STEWARD Respiratory Rate 19 09/29/2024 10:05 PM DINING CAR STEWARD Oxygen Saturation 93% 09/29/2024 10:05 PM DINING CAR STEWARD Inhaled Oxygen Concentration - - Weight 86.2 kg (190 lb 0.6 oz) 09/29/2024 3:08 P M DINING CAR STEWARD Height 165.1 cm (5' 5) 09/29/2024 3:08 PM DINING CAR STEWARD Body Mass Index 31.62 09/29/2024 3:08 PM DINING CAR STEWARD Plan of Treatment Health Maintenance Due Date [...] PELVIS WO CONTRAST ED 09/29/2024 6:43 PM DINING CAR STEWARD EGFR STAT 09/29/2024 3:13 PM DINING CAR STEWARD HEMOGLOBIN A1C Routine 10/04/2021 10:45 AM DINING CAR STEWARD Preop testing LIPID PANEL Routine 03/09/2021 5:04 AM CDT from Last 3 Months or Most Recently Relevant to Health Maintenance Results * CT Abdomen Pelvis WO Contrast (09/29/2024 6:43 PM DINING CAR STEWARD) Anatomical Region Laterality Modality Body N/A Computed Tomogra phy 09/29/2024 6:41 PM DINING CAR STEWARD Impressions 09/29/2024 11:18 PM DINING CAR STEWARD 1. Minimal nonspecific bilateral perinephric stranding. No acute urinary tract findings otherwise. 2. Low stool burden with colonic diverticulosis. No acute bowel findings otherwise. 3. Enlarged prostate with distended urinary bladder. See discussion above. Stat report by [facility] Electronically signed by: Oswaldo Botello M.D. Narrative 09/29/2024 11:18 PM DINING CAR STEWARD EXAMINATION: CT ABDOMEN PELVIS WO CONTRAST DATE: [...] bladder. See discussion above. Stat report by [facility] Electronically signed by: Oswaldo Botello M.D. Reese Waller MD IMG CT PROCEDURES Final Result * (ABNORMAL) eGFR (09/29/2024 3:13 PM DINING CAR STEWARD) eGFR 36(L) >=60 mL/min/1. 73 m2 Comment: [...] last reviewed 2021. Blood 09/29/2024 3:13 PM DINING CAR STEWARD 09/29/2024 3:18 PM DINING CAR STEWARD Reese Waller MD LAB BLOOD ORDERABLES Fi nal Result VALERIE [address] Department [place] [address] * (ABNORMAL) Hemoglobin A1c (10/04/2021 10:45 AM DINING CAR STEWARD) Hgb A1C 6.6(H) 4.0 - 5.6 % VALERIE HOUSER Estimated Average Glucose 143 mg/dL VALERIE HOUSER Comment: The ADA recommends reporting an estimated Average Glucose (eAG) with all Hemoglobin A1c results using the equation derived from a study of 507 normal and diabetic adults. Minority populations were underrepresented and children were not included. (Diabetes Care 31:8303-5904, 2008). The eAG is not equivalent to a fasting glucose. Blood 10/04/2021 10:4 5 AM DINING CAR STEWARD 10/04/2021 11:11 AM DINING CAR STEWARD us Alexandre Godinez MD LAB BLOOD ORDERABLES Final Res ult VALERIE [address] [facility] Department [place] [address] * (ABNORMAL) Lipid panel (03/09/2021 5:04 AM [...] LAB BLOOD ORDERABLES Final Result VALERIE HOUS[address] Department [place] [address] from Last 3 Months or Most Recently Relevant to Health Maintenance Insurance [facility] MEDICARE ADVANTAGE [facility] Address: [address] [address] [place] [address] [facility] MEDICARE ADVANTAGE [facility] Address: [address] [address] [place] [address] [facility] MEDICARE ADVANTAGE [facility] Address: [address] [address] [place] [address] [facility] MDCR HMO REF [facility] MEDIC[facility] Address: [facility] [address] [place] [address] Advance Directives For more information, please contact: [phone] * Full Code (Latest Code Status on [...] PM 03/10/2021 11:12 PM Care Teams Gas Maker Relationship Specialty Start Date End Date Naveen Lott MD [address] [address] PCP - General 12/02/16 Alexandre Godinez MD [address] [facility] [address] [place] [address] Surgeon Neurosurgery 03/10/21 [place] [address] [facility] [address] [place] [address] Consulting Physician Neurology 03/10/21
--- OUTSIDE RECORDS SUMMARY | 2025-02-09 20:41 | XMS_ITS | CONTINUITY OF CARE DOCUMENT ---
Author Name arash antoine Address Unknown Organization [facility] Address [address] [facility] [address] [place] [address] Phone [phone] Care Team Providers Care Gaming Table Operator Name Role Phone Luis THOMAS, Emmanuel Unavailable [phone] KASIA THOMAS, ALFONSO Unavailable APOLINAR THOMAS, [...] Payer name Policy type / Coverage type [place] red green party ID UHC MEDICARE COMPLETE O Other [id number]
--- OUTSIDE RECORDS SUMMARY | 2025-02-09 20:41 | XMS_ITS | Clinical Summary ---
Author Organization [facility] Address [address] [place] [address] Care Team Providers Care Tractor Sweeper Operator Name Role Phone Naveen Lott MD Primary Care Provider [phone] Source Comments [facility],non-owned Affiliates and Associated Physician Practices is amultiple site organization consisting of ambulatory clinics and hospital sitesin [place], [place], [place] and [place]. This disclosure is being madepursuant to the Care Everywhere program and may not contain all information available regarding this patient. Last updated 18.[facility] Allergies No known active allergies Medications * [...] patient's age to complete this topic Insurance [facility] MANAGED MEDICARE ADV [place] [id number] [facility] MANAGED MEDICARE ADV Care Teams Tractor Sweeper Operator Relationship Specialty Start Date End Date Naveen Lott MD [address] [place] [address] PCP - General 03/03/21
--- OUTSIDE RECORDS SUMMARY | 2025-02-09 20:41 | XMS_ITS | Referral Summary ---
Author Organization [facility] [address] Address [address] [place] [address] Care Team Providers Care Event Marketing Intern Name Role Phone Naveen Lott MD Primary Care Provider Alexandre Godinez MD Unavailable [phone] Radha JIN MD, Can Bishop Unavailable [phone] Allergies No known active allergies Medications pantoprazole [...] (08/20/2021): Added automatically from request for surgery [id number] S/P carotid endarterectomy 04/13/2021 Stenosis of right carotid artery 04/01/2021 Overview (04/01/2021): Added automatically from request for surgery [id number] [facility] 03/08/2021 Coronary artery disease invo lving [place] coronary artery of [place] heart without angina pectoris 04/27/2017 S/P coronary [...] on file Legal Sex Male 9:17 AM VISUAL ARTIST Gender Identity Not on file Sexual Orientation Not on file Last Filed Vital Signs Vital Sign Reading Time Taken Comments Blood Pressure 139/43 09/29/2024 10:05 PM VISUAL ARTIST Pulse 63 09/29/2024 10:05 PM VISUAL ARTIST Temperature 36.9 C (98.5 F) 09/29/2024 10:05 PM VISUAL ARTIST Respiratory Rate 19 09/29/2024 10:05 PM VISUAL ARTIST Oxygen Saturation 93% 09/29/2024 10:05 PM VISUAL ARTIST Inhaled Oxygen Concentration - - Weight 86.2 kg (190 lb 0.6 oz) 09/29/2024 3:08 P M VISUAL ARTIST Height 165.1 cm (5' 5) 09/29/2024 3:08 PM VISUAL ARTIST Body Mass Index 31.62 09/29/2024 3:08 PM VISUAL ARTIST Plan of Treatment Not on file Procedures Procedure Name Priority Date/Time Associated Diagnosis Comments CT ABDOMEN PELVIS WO CONTRAST ED 09/29/2024 6:43 PM VISUAL ARTIST EGFR STAT 09/29/2024 3:13 PM VISUAL ARTIST HEMOGLOBIN A1C Routine 10/04/2021 10:45 AM VISUAL ARTIST Preop testing LIPID PANEL Routine 03/09/2021 5:04 AM CDT from Last 3 Months or Most Recently Relevant to Health Maintenance Results * CT Abdomen Pelvis WO Contrast (09/29/2024 6:43 PM VISUAL ARTIST) Anatomical Region Laterality Modality Body N/A Computed Tomogra phy 09/29/2024 6:41 PM VISUAL ARTIST Impressions 09/29/2024 11:18 PM VISUAL ARTIST 1. Minimal nonspecific bilateral perinephric stranding. No acute urinary tract findings otherwise. 2. Low stool burden with colonic diverticulosis. No acute bowel findings otherwise. 3. Enlarged prostate with distended urinary bladder. See discussion above. Stat report by [facility] Electronically signed by: Oswaldo Botello M.D. Narrative 09/29/2024 11:18 PM VISUAL ARTIST EXAMINATION: CT ABDOMEN PELVIS WO CONTRAST DATE: [...] bladder. See discussion above. Stat report by [facility] Electronically signed by: Oswaldo Botello M.D. Reese Waller MD IMG CT PROCEDURES Final Result * (ABNORMAL) eGFR (09/29/2024 3:13 PM VISUAL ARTIST) eGFR 36(L) >=60 mL/min/1. 73 m2 Comment: [...] last reviewed 2021. Blood 09/29/2024 3:13 PM VISUAL ARTIST 09/29/2024 3:18 PM VISUAL ARTIST Reese Waller MD LAB BLOOD ORDERABLES Fi nal Result VALERIE [address] [address] Department [place] [address] * (ABNORMAL) Hemoglobin A1c (10/04/2021 10:45 AM VISUAL ARTIST) Hgb A1C 6.6(H) 4.0 - 5.6 % VALERIE HOUSER Estimated Average Glucose 143 mg/dL VALERIE HOUSER Comment: The ADA recommends reporting an estimated Average Glucose (eAG) with all Hemoglobin A1c results using the equation derived from a study of 507 normal and diabetic adults. Minority populations were underrepresented and children were not included. (Diabetes Care 31:5285-2088, 2008). The eAG is not equivalent to a fasting glucose. Blood 10/04/2021 10:4 5 AM VISUAL ARTIST 10/04/2021 11:11 AM VISUAL ARTIST Alexandre Godinez MD LAB BLOOD ORDERABLES Final Res ult VALERIE [address] [address] Department [place] [address] * (ABNORMAL) Lipid panel (03/09/2021 5:04 AM [...] LAB BLOOD ORDERABLES Final Result VALERIE HOUSER [address] Department [place] [address] from Last 3 Months or Most Recently Relevant to Health Maintenance Insurance [facility] MEDICARE ADVANTAGE [facility] MDCR HMO REF Advance Directives For more information, please contact: [phone] * Full Code (Latest Code Status on File) Date Activated Date Inactivated Comments 01/07/2023 9:03 PM 01/08/2023 8:55 PM * Full Code Date Activated Date Inactivated Comments 10/08/2021 6:40 PM 10/09/2021 6:54 PM * Full Code Date Activated Date Inactivated Comments 04/13/2021 8:38 PM 04/15/2021 9:43 PM * Full Code Date Activated Date Inactivated Comments 03/08/2021 12:34 PM 03/10/2021 11:12 PM Care Teams Event Marketing Intern Relationship Specialty Start Date End Date Naveen Lott MD [address] [address] PCP - General 12/02/16 Alexandre Godinez MD [address] [facility] [address] [address] Surgeon Neurosurgery 03/10/21 [place] [address] [facility] [address] [place] [address] Consulting Physician Neurology 03/10/21
--- OUTSIDE RECORDS SUMMARY | 2025-02-09 20:42 | XMS_ITS | Clinical Summary ---
Author Organization [facility] Address [address] [place] [address] Phone Care Team Providers Care Account Services Analyst Name Role Phone Naveen Lott MD Primary Care Provider [phone] Allergies No known active allergies Medications atorvastatin [...] (09/09/2021): Added automatically from request for surgery [id number] History of carotid endarterectomy 04/13/2021 History of [...] on file Legal Sex Male 1:43 PM [facility] Gender Identity Not on file Sexual Orientation [...] 11:22 AM CDT Height 167.6 cm (5' 6) 03/24/2022 11:22 AM CDT Body Mass Index 30.02 03/24/2022 11:22 AM CDT Plan of Treatment Health Maintenance Due Date Last Done Comments Pneumococcal PPSV23/PCV13 65 + Years / Low and Medium Risk (1 of 4 - PCV) 1992 Influenza Vaccine (Season Ended) 2025 08/04/20 21 Insurance Care Teams Account Services Analyst Relationship Specialty Start Date End Date Naveen Lott MD [address] [facility] [address] [facility] [address] [place] [address] PCP - General Internal Medicine 09/07/21
[2025-02-09 21:01] VITALS: BP 160/68; PULSE 64; RESP 16; TEMP 36.6; O2SAT 92
--- NOTE | 2025-02-09 21:19 | ECG_ITS ---
Test Date: 2025-02-09 21:22:33 Measurements Intervals [place] Rate: 63 P: 68 AL: 244 QRS: -42 QRSD: 112 T: 122 QT: 390 QTc: 399 Interpretive Statements SINUS RHYTHM WITH FIRST DEGREE AV BLOCK LEFT AXIS DEVIATION INTRAVENTRICULAR CONDUCTION DELAY LEFT VENTRICULAR HYPERTROPHY WITH ST-T CHANGE CANNOT R/O SEPTAL INFARCT, AGE INDETERMINATE BORDERLINE ST-T WAVE ABNORMALITY- LATERAL LEADS BASELINE ARTIFACT- I, II, III, AVR, AVL, V4-V6 ABNORMAL ECG Compared to ECG 09/27/2024 14:52:11 NO SIGNIFICANT CHANGE Electronically Signed On 02-10-2025 06:06:44 CDT by Eduardo Haywood D.O.
[2025-02-09 23:24] VITALS: PULSE 68
[2025-02-09 23:25] VITALS: BP 196/55; PULSE 68; RESP 18; TEMP 36.5; O2SAT 95
[2025-02-10] VITALS (11 sets, daily range): BP systolic 146–255; BP diastolic 50–81; PULSE 48–109; RESP 15–25; TEMP 36.8; O2SAT 91–99
--- OUTSIDE RECORDS SUMMARY | 2025-02-10 00:17 | XMS_ITS | Clinical Summary ---
Author Organization [facility] [address] Address [address] [place] [address] Care Team Providers Care Wildlife Conservation Professor Name Role Phone Naveen Lott MD Primary Care Provider Alexandre Godinez MD Unavailable [phone] Radha JIN MD, Can Bishop Unavailable [phone] Allergies No known active allergies Medications pantoprazole [...] (08/20/2021): Added automatically from request for surgery [id number] S/P carotid endarterectomy 04/13/2021 Stenosis of right carotid artery 04/01/2021 Overview (04/01/2021): Added automatically from request for surgery [id number] [facility] 03/08/2021 Coronary artery disease invo lving [place] coronary artery of [place] heart without angina pectoris 04/27/2017 S/P coronary [...] on file Legal Sex Male 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 Gender Identity Not on file Sexual Orientation Not on file Obstetrics History Last Filed Vital Signs Vital Sign Reading Time Taken Comments Blood Pressure 139/43 09/29/2024 10:05 PM INTERNATIONAL TRADE ANALYST Pulse 63 09/29/2024 10:05 PM INTERNATIONAL TRADE ANALYST Temperature 36.9 C (98.5 F) 09/29/2024 10:05 PM INTERNATIONAL TRADE ANALYST Respiratory Rate 19 09/29/2024 10:05 PM INTERNATIONAL TRADE ANALYST Oxygen Saturation 93% 09/29/2024 10:05 PM INTERNATIONAL TRADE ANALYST Inhaled Oxygen Concentration - - Weight 86.2 kg (190 lb 0.6 oz) 09/29/2024 3:08 P M INTERNATIONAL TRADE ANALYST Height 165.1 cm (5' 5) 09/29/2024 3:08 PM INTERNATIONAL TRADE ANALYST Body Mass Index 31.62 09/29/2024 3:08 PM INTERNATIONAL TRADE ANALYST Plan of Treatment Health Maintenance Due Date [...] PELVIS WO CONTRAST ED 09/29/2024 6:43 PM INTERNATIONAL TRADE ANALYST EGFR STAT 09/29/2024 3:13 PM INTERNATIONAL TRADE ANALYST HEMOGLOBIN A1C Routine 10/04/2021 10:45 AM INTERNATIONAL TRADE ANALYST Preop testing LIPID PANEL Routine 03/09/2021 5:04 AM CDT from Last 3 Months or Most Recently Relevant to Health Maintenance Results * CT Abdomen Pelvis WO Contrast (09/29/2024 6:43 PM INTERNATIONAL TRADE ANALYST) Anatomical Region Laterality Modality Body N/A Computed Tomogra phy 09/29/2024 6:41 PM INTERNATIONAL TRADE ANALYST Impressions 09/29/2024 11:18 PM INTERNATIONAL TRADE ANALYST 1. Minimal nonspecific bilateral perinephric stranding. No acute urinary tract findings otherwise. 2. Low stool burden with colonic diverticulosis. No acute bowel findings otherwise. 3. Enlarged prostate with distended urinary bladder. See discussion above. Stat report by [facility] Electronically signed by: Oswaldo Botello M.D. Narrative 09/29/2024 11:18 PM INTERNATIONAL TRADE ANALYST EXAMINATION: CT ABDOMEN PELVIS WO CONTRAST DATE: [...] Result * (ABNORMAL) eGFR (09/29/2024 3:13 PM INTERNATIONAL TRADE ANALYST) eGFR 36(L) >=60 mL/min/1. 73 m2 Comment: [...] last reviewed 2021. Blood 09/29/2024 3:13 PM INTERNATIONAL TRADE ANALYST 09/29/2024 3:18 PM INTERNATIONAL TRADE ANALYST Reese Waller MD LAB BLOOD ORDERABLES Fi nal Result VALERIE [address] [address] Department [place] [address] * (ABNORMAL) Hemoglobin A1c (10/04/2021 10:45 AM INTERNATIONAL TRADE ANALYST) Hgb A1C 6.6(H) 4.0 - 5.6 % VALERIE HOUSER Estimated Average Glucose 143 mg/dL VALERIE HOUSER Comment: The ADA recommends reporting an estimated Average Glucose (eAG) with all Hemoglobin A1c results using the equation derived from a study of 507 normal and diabetic adults. Minority populations were underrepresented and children were not included. (Diabetes Care 31:4718-8594, 2008). The eAG is not equivalent to a fasting glucose. Blood 10/04/2021 10:4 5 AM INTERNATIONAL TRADE ANALYST 10/04/2021 11:11 AM INTERNATIONAL TRADE ANALYST us Alexandre Godinez MD LAB BLOOD ORDERABLES Final Res ult VALERIE [address] [facility] Department [place] [address] * (ABNORMAL) Lipid panel (03/09/2021 5:04 AM [...] LAB BLOOD ORDERABLES Final Result VALERIE HOUSER [address] [address] Department [place] [address] from Last 3 Months or Most Recently Relevant to Health Maintenance Insurance [facility] MEDICARE ADVANTAGE [facility] MEDICARE Address: [address] [address] [place] [address] [facility] MEDICARE ADVANTAGE [facility] MEDICARE Address: [address] [address] [place] [address] [facility] MEDICARE ADVANTAGE [facility] MEDICARE Address: [address] [address] [place] [address] [facility] MDCR HMO REF [facility] MEDICARE Address: [facility] [address] [place] [address] Advance Directives For more information, please contact: [phone] * Full Code (Latest Code Status on File) Date Activated Date Inactivated Comments 01/07/2023 9:03 PM 01/08/2023 8:55 PM * Full Code Date Activated Date Inactivated Comments 10/08/2021 6:40 PM 10/09/2021 6:54 PM * Full Code Date Activated Date Inactivated Comments 04/13/2021 8:38 PM 04/15/2021 9:43 PM * Full Code Date Activated Date Inactivated Comments 03/08/2021 12:34 PM 03/10/2021 11:12 PM Care Teams Wildlife Conservation Professor Relationship Specialty Start Date End Date Naveen Lott MD [address] [address] PCP - General 12/02/16 Alexandre Godinez MD [address] [facility] [address] [place] [address] Surgeon Neurosurgery 03/10/21 [place] [address] [facility] [address] [place] [address] Consulting Physician Neurology 03/10/21
--- OUTSIDE RECORDS SUMMARY | 2025-02-10 00:17 | XMS_ITS | Clinical Summary ---
Author Organization [facility] Address [address] [place] [address] Care Team Providers Care Senior Corporate Accountant Name Role Phone Naveen Lott MD Primary Care Provider [phone] Source Comments [facility],non-owned Affiliates and Associated Physician Practices is amultiple site organization consisting of ambulatory clinics and hospital sitesin [place], [place], [place] and [place]. This disclosure is being madepursuant to the Care Everywhere program and may not contain all information available regarding this patient. Last updated 18.[facility] Allergies No known active allergies Medications * [...] patient's age to complete this topic Insurance [facility] MANAGED MEDICARE ADV [place] [id number] [facility] MANAGED MEDICARE ADV Care Teams Senior Corporate Accountant Relationship Specialty Start Date End Date Naveen Lott MD [address] [place] [address] PCP - General 03/03/21
--- OUTSIDE RECORDS SUMMARY | 2025-02-10 00:17 | XMS_ITS | Clinical Summary ---
Author Organization [facility] Address [address] [place] [address] Phone Care Team Providers Care Pediatric Dietician Name Role Phone Naveen Lott MD Primary Care Provider [phone] Allergies No known active allergies Medications atorvastatin [...] (09/09/2021): Added automatically from request for surgery [id number] History of carotid endarterectomy 04/13/2021 History of [...] on file Legal Sex Male 1:43 PM [facility] Gender Identity Not on [...] Vaccine (Season Ended) 2025 08/04/20 21 [place] [address] Care Teams Pediatric Dietician Relationship Specialty Start Date End Date Naveen Lott MD [address] [facility] [address] [facility] [address] [place] [address] PCP - General Internal Medicine 09/07/21
--- OUTSIDE RECORDS SUMMARY | 2025-02-10 00:17 | XMS_ITS | CONTINUITY OF CARE DOCUMENT ---
Author Name arash antoine Address Unknown Organization [facility] Address [address] [place] [address] Phone [phone] Care Team Providers Care Carpet Technician Name Role Phone Luis THOMAS, Emmanuel Unavailable KASIA THOMAS, ALFONSO Unavailable APOLINAR THOMAS, NAZANIN Unavailable [phone] PROBLEMS Condition Status Date Provider Notes GOUT, [...] Payer name Policy type / Coverage type [place] red democrat ID UHC MEDICARE COMPLETE O Other [id number]
--- OUTSIDE RECORDS SUMMARY | 2025-02-10 00:17 | XMS_ITS | Referral Summary ---
Author Organization [facility] [address] Address [address] [place] [address] Care Team Providers Care Records Specialist Name Role Phone Naveen Lott MD Primary Care Provider Alexandre Godinez MD Unavailable [phone] Radha JIN MD, Can Bishop Unavailable [phone] Allergies No known active allergies Medications pantoprazole [...] (08/20/2021): Added automatically from request for surgery [id number] S/P carotid endarterectomy 04/13/2021 Stenosis of right carotid artery 04/01/2021 Overview (04/01/2021): Added automatically from request for surgery [id number] [facility] 03/08/2021 Coronary artery disease invo lving [place] coronary artery of [place] heart without angina pectoris 04/27/2017 S/P coronary [...] on file Legal Sex Male 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 Gender Identity Not on file Sexual Orientation Not on file Last Filed Vital Signs Vital Sign Reading Time Taken Comments Blood Pressure 139/43 09/29/2024 10:05 PM DORR OPERATOR Pulse 63 09/29/2024 10:05 PM DORR OPERATOR Temperature 36.9 C (98.5 F) 09/29/2024 10:05 PM DORR OPERATOR Respiratory Rate 19 09/29/2024 10:05 PM DORR OPERATOR Oxygen Saturation 93% 09/29/2024 10:05 PM DORR OPERATOR Inhaled Oxygen Concentration - - Weight 86.2 kg (190 lb 0.6 oz) 09/29/2024 3:08 P M DORR OPERATOR Height 165.1 cm (5' 5) 09/29/2024 3:08 PM DORR OPERATOR Body Mass Index 31.62 09/29/2024 3:08 PM DORR OPERATOR Plan of Treatment Not on file Procedures Procedure Name Priority Date/Time Associated Diagnosis Comments CT ABDOMEN PELVIS WO CONTRAST ED 09/29/2024 6:43 PM DORR OPERATOR EGFR STAT 09/29/2024 3:13 PM DORR OPERATOR HEMOGLOBIN A1C Routine 10/04/2021 10:45 AM DORR OPERATOR Preop testing LIPID PANEL Routine 03/09/2021 5:04 AM CDT from Last 3 Months or Most Recently Relevant to Health Maintenance Results * CT Abdomen Pelvis WO Contrast (09/29/2024 6:43 PM DORR OPERATOR) Anatomical Region Laterality Modality Body N/A Computed Tomogra phy 09/29/2024 6:41 PM DORR OPERATOR Impressions 09/29/2024 11:18 PM DORR OPERATOR 1. Minimal nonspecific bilateral perinephric stranding. No acute urinary tract findings otherwise. 2. Low stool burden with colonic diverticulosis. No acute bowel findings otherwise. 3. Enlarged prostate with distended urinary bladder. See discussion above. Stat report by [facility] Electronically signed by: Oswaldo Botello M.D. Narrative 09/29/2024 11:18 PM DORR OPERATOR EXAMINATION: CT ABDOMEN PELVIS WO CONTRAST DATE: [...] bladder. See discussion above. Stat report by [facility] Electronically signed by: Oswaldo Botello M.D. Reese Waller MD IMG CT PROCEDURES Final Result * (ABNORMAL) eGFR (09/29/2024 3:13 PM DORR OPERATOR) eGFR 36(L) >=60 mL/min/1. 73 m2 Comment: [...] last reviewed 2021. Blood 09/29/2024 3:13 PM DORR OPERATOR 09/29/2024 3:18 PM DORR OPERATOR Reese Waller MD LAB BLOOD ORDERABLES Fi nal Result [address] Department [place] [address] * (ABNORMAL) Hemoglobin A1c (10/04/2021 10:45 AM DORR OPERATOR) Hgb A1C 6.6(H) 4.0 - 5.6 % VALERIE HOUSER Estimated Average Glucose 143 mg/dL VALERIE HOUSER Comment: The ADA recommends reporting an estimated Average Glucose (eAG) with all Hemoglobin A1c results using the equation derived from a study of 507 normal and diabetic adults. Minority populations were underrepresented and children were not included. (Diabetes Care 31:4555-3870, 2008). The eAG is not equivalent to a fasting glucose. Blood 10/04/2021 10:4 5 AM DORR OPERATOR 10/04/2021 11:11 AM DORR OPERATOR Alexandre Godinez MD LAB BLOOD ORDERABLES Final Res ult [address] [address] [address] Department [place] [address] * (ABNORMAL) Lipid panel (03/09/2021 5:04 AM [...] LAB BLOOD ORDERABLES Final Result VALERIE HOUSER [address] [address] Department [place] [address] from Last 3 Months or Most Recently Relevant to Health Maintenance Insurance [facility] MEDICARE ADVANTAGE [facility] MDCR HMO REF Advance Directives For more information, please contact: [phone] * Full Code (Latest Code Status on File) Date Activated Date Inactivated Comments 01/07/2023 9:03 PM 01/08/2023 8:55 PM * Full Code Date Activated Date Inactivated Comments 10/08/2021 6:40 PM 10/09/2021 6:54 PM * Full Code Date Activated Date Inactivated Comments 04/13/2021 8:38 PM 04/15/2021 9:43 PM * Full Code Date Activated Date Inactivated Comments 03/08/2021 12:34 PM 03/10/2021 11:12 PM Care Teams Records Specialist Relationship Specialty Start Date End Date Naveen Lott MD [address] [address] PCP - General 12/02/16 Alexandre Godinez MD [address] [facility] [address] [address] Surgeon Neurosurgery 03/10/21 [place] [address] [facility] [address] [place] [address] Consulting Physician Neurology 03/10/21
[2025-02-10 00:42] LABS: Basophils Absolute Auto 0.1 K/mm3 (0.0-0.1); Eosinophils Absolute Auto 0.3 K/mm3 (0-0.3); Eosinophils Percent Auto 3.6 % (0-4.4); Hemoglobin 11.5 g/dL (14.0-18.0); Immature Granulocyte Absolute 0.04 K/mm3 (0.00-0.031); Immature Granulocyte Percent A 0.4 % (0-0.5); Lymphocytes Absolute Auto 2.34 K/mm3 (0.9-3.2); Mean Corpuscular HGB Conc 29.5 g/dl (32-36); Mean Corpuscular Hemoglobin 22.4 pg (26-34); Mean Platelet Volume 10.7 fl (7.4-10.4); Monocytes Absolute Auto 0.7 K/mm3 (0.1-0.6); Monocytes Percent Auto 7.2 % (2.6-8.5); Neutrophils Absolute Auto 5.9 K/mm3 (1.3-6.7); Neutrophils Percent Auto 62.8 % (45.5-73.1); Platelet Count Result 305 k/mm3 (150-375); Red Blood Count 5.13 M/mm3 (4.6-6.20); Red Cell Distribution Width 18.1 % (11.5-14.5); White Blood Count 9.4 K/mm3 (4.5-10.0)
[2025-02-10] MEDS: IPRATROPIUM 0.5 MG/ALBUTEROL SULFATE 2.5 MG AMPUL.NEB 3 ML INHALATION ×2 (00:43→02:18)
[2025-02-10 00:53] LABS: Prothrombin Time 13.7 Seconds (11.1-14.7)
[2025-02-10 00:55] LABS: Partial Thromboplastin Time 41.3 Seconds (22.3-36.8)
[2025-02-10 00:56] LABS: Influenza A QL RT-PCR Negative (Negative); Influenza B QL RT-PCR Negative (Negative); RSV RNA, RT-PCR Negative (Negative); SARS-CoV-2 RNA PCR Negative (Negative)
[2025-02-10 01:02] LABS: Alanine Aminotransferase 16 U/L (6-50); Albumin Level 4.1 g/dL (3.5-5.1); Alkaline Phosphatase 75 U/L (38-126); Anion Gap 11 mmol/L (4-12); Aspartate Amino Transferase 27 U/L (17-59); Bilirubin,Total 0.7 mg/dL (0.2-1.3); Blood Urea Nitrogen 31 mg/dL (9-20); Calcium 9.9 mg/dL (8.4-10.2); Carbon Dioxide 25 mmol/L (22-30); Chloride 104 mmol/L (98-107); Estimated CRCL calculation 35 ml/min; Estimated Glomerular Filt Rate 44; Glucose 110 mg/dL (65-110); Potassium 3.9 mmol/L (3.4-5.0); Sodium 140 mmol/L (137-145)
[2025-02-10 01:14] LABS: NT Pro B Type Natriuretic Pept 187 pg/mL (19.9-100); Troponin I 0.015 ng/mL (0.000-0.034)
--- NOTE | 2025-02-10 01:42 | ED.SOB ---
HPI - SOB/Dyspnea General Chief Complaint: Shortness of Breath/Dyspnea <Disha Inman PA-C - Last Filed: 02/10/25 02:17> Stated Complaint: Shortness of breath/dizzy <Disha Inman PA-C - Last Filed: 02/10/25 02:17> Time Seen by Provider: 02/10/25 00:13 <Disha Inman PA-C - Last Filed: 02/10/25 02:17> History of Present Illness HPI Narrative: 84 y/o M with a PMHx of CAD, s/p stent placement x3, LOPEZ, renal artery stenosis, HTN, CKD III, GERD, dyslipidemia presents to the emergency department for cough and congestion for about 1 week. Patient states a week ago he began developing a cough and a few days later states the cough became productive with yellow sputum. He reports associated nasal congestion and wheezing. He denies fevers, abdominal pain, nausea vomiting, otalgia. He also notes that he has had mildly increased swelling to his lower extremities with shortness of breath, orthopnea and weight gain of 15 lb in the past month. He denies history of CHF. His injection mold technician is Dr. Adams. He recently saw Dr. Adams on 01/20/25 and states he was started on a new diuretic afterwards for better BP control and edema. Per chart review he filled chlorthalidone the following day. His chemical weigher is Dr. Garcia. Does not believe he has had an echo. Denies COPD or asthma. He does not smoke. <Disha Inman PA-C - Last Filed: 02/10/25 02:17> Related Data Home Medications: Home Medications ?Medication ?Instructions ?Recorded ?Confirmed ?Last Taken ?Type aspirin 81 mg tablet,delayed 81 mg PO DAILY 10/16/19 01/21/25 08/23/23 08:00 History release (Adult Aspirin Regimen) clopidogrel 75 mg tablet 75 mg PO DAILY 08/12/21 01/21/25 08/23/23 08:00 History clonidine HCl 0.1 mg tablet 0.1 mg PO USEASDIRECTD 08/24/23 01/21/25 Unknown History <СЕРГЕЙ Urias Last Filed: 02/10/25 02:17> Allergies/Adverse Reactions: Allergies Allergy/AdvReac Type Severity Reaction Status Date / Time No Known Allergies Allergy Verified 01/20/25 08:03 <Disha Inman PA-C - Last Filed: 02/10/25 02:17> Review of Systems Review of Systems: All systems reviewed & are unremarkable except as noted in HPI and below <Disha Inman PA-C - Last Filed: 02/10/25 02:17> [facility] Past Medical History Medical History: Medical History Renal artery stenosis Peripheral vascular disease Coronary artery disease Colorectal cancer Type 2 diabetes mellitus Hypertension Gastroesophageal reflux disease Chronic kidney disease, stage 3 Diabetic neuropathy Mixed hyperlipidemia Carotid artery stenosis <Disha Inman PA-C - Last Filed: 02/10/25 02:17> Surgical History Surgical History: Surgical History History of right-sided carotid endarterectomy History of cholecystectomy History of cataract extraction History of coronary artery stent placement History of colon surgery <Disha Inman PA-C - Last Filed: 02/10/25 02:17> Family History Family History: Family History Mother Family history of coronary artery disease Cerebrovascular accident Sibling Family history of coronary artery disease Other Hypertension Other Diabetes mellitus Father Diabetes mellitus Other Family history of cardiovascular disease <Disha Inman PA-C - Last Filed: 02/10/25 02:17> Social History Social History: Social History Social History: Surrogate medical decision maker: Cassius Pérez, brother. Code status: Full code. Smoking packs per day: 2 Smoking cigarettes per day: 40.0 Years smoked: 57 Smoking pack-years: 114.00 Smoking status: Former smoker Tobacco type: cigarettes Second hand tobacco smoke exposure: No Alcohol intake: never Substance use: never Substance use type: does not use Do You Feel Safe in your Home?: Yes Lack of Transportation: No Lack of Food: Never True Current Housing: I Have Housing Concerned About Future Housing: No Difficulty Paying Gas/Electric Bills: No Difficulty Paying for Meds: No Currently Unemployed: No Education: High School Diploma/GED Difficulty w/ Childcare or Family Care: No Living arrangements: alone Additional living arrangements comments: Lives in [place]. . Has 1 son. 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 Gender identity (if verbalized by the patient): Male Spiritual care concerns: No <Disha Inman PA-C - Last Filed: 02/10/25 02:17> Exam Narrative: GENERAL: Well-appearing, well-nourished, and in no acute distress. HEAD: Normocephalic, atraumatic. EYES: EOMI. ENT: Nares clear, no rhinorrhea or epistaxis. Mucous membranes moist. NECK: Supple. CHEST: Expiratory wheezing throughout all lung wilks. Patient satting 94% on my evaluation on room air in no respiratory distress and speaking in full sentences. HEART: Regular rate and rhythm. No murmur heard. Normal peripheral pulses. ABDOMEN: Soft, nontender, nondistended, normal active bowel sounds. EXTREMITIES: Normal range of motion. 1-2+ pitting edema bilateral lower extremities SKIN: Warm, dry, no rash. NEURO: No focal deficits. Alert and oriented x3 <Disha Inman PA-C - Last Filed: 02/10/25 02:17> Course GLASS BLOWING LATHE OPERATOR/PA Physician Supervision For this patient encounter, I reviewed the GLASS BLOWING LATHE OPERATOR or PA documentation, treatment plan, and medical decision making and had [id number] time with this patient. I performed all aspects of the MDM as documented. <Melinda Stone MD - Last Filed: 02/10/25 05:14> Vital Signs Vital signs: Vital Signs Temperature 97.9 F 02/09/25 21:01 Pulse Rate 64 02/09/25 21:01 Respiratory Rate 16 02/09/25 21:01 Blood Pressure 160/68 H 02/09/25 21:01 Pulse Oximetry 92 02/09/25 21:01 Oxygen Delivery Room Air 02/09/25 21:01 Temperature 97.7 F 02/09/25 23:25 Pulse Rate 99 02/10/25 05:01 Respiratory Rate 20 02/10/25 05:01 Blood Pressure 168/74 H 02/10/25 05:01 Pulse Oximetry 91 02/10/25 05:01 Oxygen Delivery Room Air 02/09/25 21:01 <Disha Inman PA-C - Last Filed: 02/10/25 02:17> Vital Signs Temperature 97.9 F 02/09/25 21:01 Pulse Rate 64 02/09/25 21:01 Respiratory Rate 16 02/09/25 21:01 Blood Pressure 160/68 H 02/09/25 21:01 Pulse Oximetry 92 02/09/25 21:01 Oxygen Delivery Room Air 02/09/25 21:01 Temperature 97.7 F 02/09/25 23:25 Pulse Rate 99 02/10/25 05:01 Respiratory Rate 20 02/10/25 05:01 Blood Pressure 168/74 H 02/10/25 05:01 Pulse Oximetry 91 02/10/25 05:01 Oxygen Delivery Room Air 02/09/25 21:01 <Melinda Stone MD - Last Filed: 02/10/25 05:14> MDM - SOB/Dyspnea MDM Narrative Medical decision making narrative: 84-year-old male presents to emergency department for cough, congestion, shortness of breath for the past week. See HPI for further history. Vitals are stable. Patient satting 92% and above on room air in no respiratory distress. Exam is notable for expiratory wheezing in all lung wilks. Lab work without leukocytosis. Hemoglobin 11.5 which is similar to baseline. Chemistries with stable CKD. Viral swabs are negative. Magnesium within normal limits. Chest x-ray shows no acute cardiopulmonary findings. EKG shows sinus rhythm with first-degree AV block, marked LAD, no ST elevations or depressions. Troponin within normal limits. BNP normal when age adjusted. Overall I suspect patient's source of symptoms is mostly due to viral bronchitis. He was given a DuoNeb in the ED but unfortunately had residual wheezing and was still feeling short of breath. Will trial another DuoNeb and 25 mg of Solu-Medrol re-evaluate. Pending duoneb and re-evaluation at time of sign-out to Dr. Stone. <Disha Inman PA-C - Last Filed: 02/10/25 02:17> 84-year-old male presents to emergency department for cough, congestion, shortness of breath for the past week. See HPI for further history. Vitals are stable. Patient satting 92% and above on room air in no respiratory distress. Exam is notable for expiratory wheezing in all lung wilks. Lab work without leukocytosis. Hemoglobin 11.5 which is similar to baseline. Chemistries with stable CKD. Viral swabs are negative. Magnesium within normal limits. Chest x-ray shows no acute cardiopulmonary findings. EKG shows sinus rhythm with first-degree AV block, marked LAD, no ST elevations or depressions. Troponin within normal limits. BNP normal when age adjusted. Overall I suspect patient's source of symptoms is mostly due to viral bronchitis. He was given a DuoNeb in the ED but unfortunately had residual wheezing and was still feeling short of breath. Will trial another DuoNeb and 25 mg of Solu-Medrol re-evaluate. Pending duoneb and re-evaluation at time of sign-out to Dr. Stone. Patient was signed out to me pending reassessment. On repeat assessment of the patient, patient is now complaining of some chest pain. Chest pain is reproducible with palpation, patient was in her this is likely secondary to musculoskeletal strain from all of the coughing, however, will obtain a CT angio to rule out any additional process. Patient was also administered his nighttime dose clonidine as his blood pressure was over 200 systolic. Repeat blood pressure 168/74 mmHg. 2nd troponin was also obtained and noted to be negative, trending downward. Repeat EKG obtained revealing no ischemic changes. CT angiogram chest PE protocol was obtained revealing over the pulmonary emboli, no acute process. Emphysema. Patient was informed of these findings at bedside. Instructed the 100 to follow-up with his primary care physician within the next 3-5 days and return to the emergency department if any new or worsening symptoms develop. He was discharged home in stable condition. <Melinda Stone MD - Last Filed: 02/10/25 05:14> Lab Data Result diagrams: 02/10/25 00:36 02/10/25 00:36 <Disha Inman PA-C - Last Filed: 02/10/25 02:17> Labs: Lab Results 02/10/25 02/10/25 02/10/25 Range/Units 00:09 00:36 03:24 WBC 9.4 (4.5-10.0) K/mm3 RBC 5.13 (4.6-6.20) M/mm3 Hgb 11.5 L (14.0-18.0) g/dL Hct 39.0 L (42.0-52.0) % MCV 76.0 L (80-100) fl MCH 22.4 L (26-34) pg MCHC 29.5 L (32-36) g/dl RDW 18.1 H (11.5-14.5) % Plt Count 305 (150-375) k/mm3 MPV 10.7 H (7.4-10.4) fl Immature Gran % (Auto) 0.4 (0-0.5) % Neut % (Auto) 62.8 (45.5-73.1) % Lymph % (Auto) 25.0 (18.3-44.2) % Custer % (Auto) 7.2 (2.6-8.5) % Eos % (Auto) 3.6 (0-4.4) % Baso % (Auto) 1.0 (0.2-1.2) % Lymph # (Auto) 2.34 (0.9-3.2) K/mm3 Custer # (Auto) 0.7 H (0.1-0.6) K/mm3 Eos # (Auto) 0.3 (0-0.3) K/mm3 Baso # (Auto) 0.1 (0.0-0.1) K/mm3 Abs Immat Gran (auto) 0.04 H (0.00-0.031) K/mm3 Absolute Neuts (auto) 5.9 (1.3-6.7) K/mm3 Absolute Nucleated RBC 0.000 (0.0-0.012) K/mm3 Nucleated RBC % 0.0 (0.0-0.2) % PT 13.7 (11.1-14.7) Seconds INR 1.0 APTT 41.3 H (22.3-36.8) Seconds Sodium 140 (137-145) mmol/L Potassium 3.9 (3.4-5.0) mmol/L Chloride 104 (98-107) mmol/L Carbon Dioxide 25 (22-30) mmol/L Anion Gap 11 (4-12) mmol/L BUN 31 H (9-20) mg/dL Creatinine 1.51 H (0.7-1.3) mg/dL Estim Creat Clear Calc 35 ml/min Estimated GFR 44 L (59 - ) Glucose 110 (65-110) mg/dL Calcium 9.9 (8.4-10.2) mg/dL Magnesium 2.0 (1.6-2.3) mg/dL Total Bilirubin 0.7 (0.2-1.3) mg/dL AST 27 (17-59) U/L ALT 16 (6-50) U/L Alkaline Phosphatase 75 (38-126) U/L Troponin I 0.015 0.013 (0.000-0.034) ng/mL NT-Pro-B Natriuret Pep 187 H (19.9-100) pg/mL Total Protein 7.0 (6.3-8.2) g/dL Albumin 4.1 (3.5-5.1) g/dL Influenza A (RT-PCR) Negative (Negative) Influenza B (RT-PCR) Negative (Negative) RSV (RT-PCR) Negative (Negative) SARS-CoV-2 RNA (RT-PCR) Negative (Negative) <Disha Inman PA-C - Last Filed: 02/10/25 02:17> Lab Results 02/10/25 02/10/25 02/10/25 Range/Units 00:09 00:36 03:24 WBC 9.4 (4.5-10.0) K/mm3 RBC 5.13 (4.6-6.20) M/mm3 Hgb 11.5 L (14.0-18.0) g/dL Hct 39.0 L (42.0-52.0) % MCV 76.0 L (80-100) fl MCH 22.4 L (26-34) pg MCHC 29.5 L (32-36) g/dl RDW 18.1 H (11.5-14.5) % Plt Count 305 (150-375) k/mm3 MPV 10.7 H (7.4-10.4) fl Immature Gran % (Auto) 0.4 (0-0.5) % Neut % (Auto) 62.8 (45.5-73.1) % Lymph % (Auto) 25.0 (18.3-44.2) % Custer % (Auto) 7.2 (2.6-8.5) % Eos % (Auto) 3.6 (0-4.4) % Baso % (Auto) 1.0 (0.2-1.2) % Lymph # (Auto) 2.34 (0.9-3.2) K/mm3 Custer # (Auto) 0.7 H (0.1-0.6) K/mm3 Eos # (Auto) 0.3 (0-0.3) K/mm3 Baso # (Auto) 0.1 (0.0-0.1) K/mm3 Abs Immat Gran (auto) 0.04 H (0.00-0.031) K/mm3 Absolute Neuts (auto) 5.9 (1.3-6.7) K/mm3 Absolute Nucleated RBC 0.000 (0.0-0.012) K/mm3 Nucleated RBC % 0.0 (0.0-0.2) % PT 13.7 (11.1-14.7) Seconds INR 1.0 APTT 41.3 H (22.3-36.8) Seconds Sodium 140 (137-145) mmol/L Potassium 3.9 (3.4-5.0) mmol/L Chloride 104 (98-107) mmol/L Carbon Dioxide 25 (22-30) mmol/L Anion Gap 11 (4-12) mmol/L BUN 31 H (9-20) mg/dL Creatinine 1.51 H (0.7-1.3) mg/dL Estim Creat Clear Calc 35 ml/min Estimated GFR 44 L (59 - ) Glucose 110 (65-110) mg/dL Calcium 9.9 (8.4-10.2) mg/dL Magnesium 2.0 (1.6-2.3) mg/dL Total Bilirubin 0.7 (0.2-1.3) mg/dL AST 27 (17-59) U/L ALT 16 (6-50) U/L Alkaline Phosphatase 75 (38-126) U/L Troponin I 0.015 0.013 (0.000-0.034) ng/mL NT-Pro-B Natriuret Pep 187 H (19.9-100) pg/mL Total Protein 7.0 (6.3-8.2) g/dL Albumin 4.1 (3.5-5.1) g/dL Influenza A (RT-PCR) Negative (Negative) Influenza B (RT-PCR) Negative (Negative) RSV (RT-PCR) Negative (Negative) SARS-CoV-2 RNA (RT-PCR) Negative (Negative) <Melinda Stone MD - Last Filed: 02/10/25 05:14> Discharge Plan Discharge Clinical Impression: Bronchitis, Chest pain <Disha Inman PA-C - Last Filed: 02/10/25 02:17> Patient Disposition: Home <СЕРГЕЙ Urias Last Filed: 02/10/25 02:17> Condition: Stable <СЕРГЕЙ Urias Last Filed: 02/10/25 02:17> Instructions: Antibiotic Form, Acute Bronchitis (ED) <СЕРГЕЙ Urias Last Filed: 02/10/25 02:17> Additional Instructions: Please follow-up with your family doctor within the next 3-5 days. Return to emergency department if any new or worsening symptoms develop. <СЕРГЕЙ Urias Last Filed: 02/10/25 02:17> Patient Language: Uruguayan <Disha Inman PA-C - Last Filed: 02/10/25 02:17> Prescriptions: No Action clopidogrel 75 mg tablet 75 mg PO DAILY aspirin [Adult Aspirin Regimen] 81 mg tablet,delayed release (DR/EC) 81 mg PO DAILY methocarbamol 500 mg tablet 500 mg PO TID PRN (Reason: muscle spasm) Qty: 15 0RF clonidine HCl 0.1 mg tablet 0.1 mg PO USEASDIRECTD Rx Instructions: TAKE 2 TABLETS BY MOUTH EVERY MORNING , TAKE 1 TABLET IN AFTERNOON AND TAKE 2 TABLETS AT NIGHT (DME) blood-glucose meter [Accu-Chek Jaimee Plus Meter] Mis See Rx Instructions .ROUTE .MEDSUPPLY Qty: 1 0RF Rx Instructions: Used once daily to check blood sugar (DME) lancets [Accu-Chek Multiclix Lancet] Misc See Rx Instructions .ROUTE .MEDSUPPLY Qty: 200 10RF Rx Instructions: Use once daily to check blood sugar (DME) Blood Glucose Test Strip See Rx Instructions .ROUTE .MEDSUPPLY Qty: 100 3RF Rx Instructions: Use once daily to check blood sugar metformin 500 mg tablet extended release 24 hr 500 mg PO DAILY Qty: 90 3RF ergocalciferol (vitamin D2) 1,250 mcg (50,000 unit) capsule 1,250 mcg PO WEEKLY Qty: 14 3RF gabapentin 100 mg capsule 100 mg PO TID Qty: 270 2RF polysaccharide iron complex 150 mg iron capsule 150 mg PO DAILY Qty: 90 3RF pantoprazole 40 mg tablet,delayed release (DR/EC) See Rx Instructions .ROUTE .COMPLEX Qty: 180 2RF Dose Instruction: TAKE 1 TABLET BY MOUTH TWICE A DAY Rx Instructions: TAKE 1 TABLET BY MOUTH TWICE A DAY tamsulosin 0.4 mg capsule 0.4 mg PO DAILY Qty: 90 2RF atorvastatin 40 mg tablet See Rx Instructions .ROUTE .COMPLEX Qty: 90 0RF Dose Instruction: TAKE 1 TABLET (40 MG) BY MOUTH DAILY Rx Instructions: TAKE 1 TABLET (40 MG) BY MOUTH DAILY irbesartan 300 mg tablet See Rx Instructions .ROUTE .COMPLEX Qty: 90 0RF Dose Instruction: TAKE 1 TABLET (300 MG) BY MOUTH DAILY Rx Instructions: TAKE 1 TABLET (300 MG) BY MOUTH DAILY nifedipine 90 mg tablet extended release See Rx Instructions .ROUTE .COMPLEX Qty: 90 2RF Dose Instruction: TAKE 1 TABLET BY MOUTH EVERY DAY Rx Instructions: TAKE 1 TABLET BY MOUTH EVERY DAY chlorthalidone 25 mg tablet 25 mg PO DAILY Qty: 30 5RF lorazepam 0.5 mg tablet 0.5 mg PO BID PRN (Reason: anxiety) Qty: 45 0RF <Disha Inman PA-C - Last Filed: 02/10/25 02:17> Follow-up/Referrals: Naveen Lott MD [Primary Care Provider] - 3 Days <Disha Inman PA-C - Last Filed: 02/10/25 02:17> Time of Disposition: 05:12 <Disha Inman PA-C - Last Filed: 02/10/25 02:17> 05:12 <Melinda Stone MD - Last Filed: 02/10/25 05:14>
[2025-02-10] MEDS: methylPREDNISolone SOD SUCC 125 MG VIAL IV PUSH (02:14)
[2025-02-10] MEDS: NITROGLYCERIN SL 0.4 MG TABLET SUBLINGUAL (03:24)
--- NOTE | 2025-02-10 03:28 | ECG_ITS ---
Test Date: 2025-02-10 03:21:08 Measurements Intervals [place] Rate: 104 P: 73 WA: 145 QRS: -59 QRSD: 113 T: 100 QT: 333 QTc: 439 Interpretive Statements SINUS TACHYCARDIA LEFT AXIS DEVIATION INTRAVENTRICULAR CONDUCTION DELAY LEFT VENTRICULAR HYPERTROPHY AND ST-T CHANGE CANNOT R/O SEPTAL INFARCT, AGE INDETERMINATE BORDERLINE ST-T WAVE ABNORMALITY- LATERAL LEADS ABNORMAL ECG Compared to ECG 02/09/2025 21:22:33 HEART RATE HAS INCREASED Electronically Signed On 02-10-2025 06:05:23 CDT by Eduardo Haywood D.O.
--- NOTE | 2025-02-10 03:30 | PC.NURSE ---
Pt states his chest feels heavy. Pt visibly shaking. hypertension noted. EDP made aware. EKG taken. 3 hour troponin taken. Nitro 0.4 mg given sublingual.
--- NOTE | 2025-02-10 03:59 | PC.NURSE ---
Pt shaking very little. Pt states the pressure is slowly relieving.
[2025-02-10 04:06] LABS: Troponin I 0.013 ng/mL (0.000-0.034)
[2025-02-10] MEDS: cloNIDine HCL 0.1 MG TABLET PO (04:32)
[2025-02-10] MEDS: KETOROLAC 15 MG/ML VIAL (*BKC) IV PUSH (05:18)
== END 2025-02-10 05:29 | disposition home or self-care (01) ==
PROVIDERS: Physician Assistant; Emergency Provider Emergency Medicine; PCP Family Medicine
DX: J40 Bronchitis, not specified as acute or chronic (principal); R07.9 Chest pain, unspecified; I25.10 Atherosclerotic heart disease of native coronary artery without angina pectoris; G47.33 Obstructive sleep apnea (adult) (pediatric); I12.9 Hypertensive chronic kidney disease with stage 1 through stage 4 chronic kidney disease, or unspecified chronic kidney disease; N18.30 Chronic kidney disease, stage 3 unspecified; E78.49 Other hyperlipidemia; E11.22 Type 2 diabetes mellitus with diabetic chronic kidney disease; Z85.038 Personal history of other malignant neoplasm of large intestine; Z87.891 Personal history of nicotine dependence; Z20.822 Contact with and (suspected) exposure to COVID-19
CPT/HCPCS: 36415; 71046; 71275; 80053; 83735; 83880; 84484; 85025; 85610; 85730; 87637; 93005; 94640; 96374; 96375; 99284; A9270; J1885; J2919; Q9967

== ENCOUNTER 2025-02-17 12:06 | Outpatient (CLI) | payer MEDICARE, SELFPAY ==
--- NOTE | ~2025-02-17 | XR_ITS ---
Clinical Indication: Cough PA and lateral views of the chest: Comparison: 02/09/2025 Findings: Probable COPD with bibasilar atelectatic change or scarring. No acute pulmonary abnormality evident. Cardiomediastinal silhouette is within normal limits. Bones and soft tissues are unremarka ble. Impression: COPD with probable bibasilar atelectatic change or scarring. No definite acute pulmonary abnormality. Reviewed, dictated and finalized at location . Impression: COPD with probable bibasilar atelectatic change or scarring. No definite acute pulmonary abnormality.
--- OUTSIDE RECORDS SUMMARY | 2025-02-17 13:10 | XMS_ITS | CONTINUITY OF CARE DOCUMENT ---
Author Name arash antoine Address Unknown Organization [facility] Address [address] [place] [address] Phone [phone] Care Team Providers Care Tape Recorder Mechanic Name Role Phone Luis THOMAS, Emmanuel Unavailable KASIA THOMAS, ALFONSO Unavailable [phone] APOLINAR THOMAS, NAZANIN Unavailable PROBLEMS Condition Status [...] Payer name Policy type / Coverage type [place] red democrat ID [id number] MEDICARE COMPLETE O Other [id number]
--- OUTSIDE RECORDS SUMMARY | 2025-02-17 13:10 | XMS_ITS | Clinical Summary ---
Author Organization [facility] [address] Address [address] [place] [address] Care Team Providers Care Weight Count Operator Name Role Phone Naveen Lott MD Primary Care Provider Alexandre Godinez MD Unavailable [phone] Radha JIN MD, Can Bishop Unavailable [phone] Allergies No known active allergies Medications pantoprazole [...] (08/20/2021): Added automatically from request for surgery [id number] S/P carotid endarterectomy 04/13/2021 Stenosis of right carotid artery 04/01/2021 Overview (04/01/2021): Added automatically from request for surgery [id number] [facility] 03/08/2021 Coronary artery disease invo lving [place] coronary artery of [place] heart without angina pectoris 04/27/2017 S/P coronary [...] on file Legal Sex Male 9:17 AM RESIDENT PHYSICIAN IN RADIOLOGY Gender Identity Not on file Sexual Orientation Not on file Obstetrics History Last Filed Vital Signs Vital Sign Reading Time Taken Comments Blood Pressure 139/43 09/29/2024 10:05 PM RESIDENT PHYSICIAN IN RADIOLOGY Pulse 63 09/29/2024 10:05 PM RESIDENT PHYSICIAN IN RADIOLOGY Temperature 36.9 C (98.5 F) 09/29/2024 10:05 PM RESIDENT PHYSICIAN IN RADIOLOGY Respiratory Rate 19 09/29/2024 10:05 PM RESIDENT PHYSICIAN IN RADIOLOGY Oxygen Saturation 93% 09/29/2024 10:05 PM RESIDENT PHYSICIAN IN RADIOLOGY Inhaled Oxygen Concentration - - Weight 86.2 kg (190 lb 0.6 oz) 09/29/2024 3:08 P M RESIDENT PHYSICIAN IN RADIOLOGY Height 165.1 cm (5' 5) 09/29/2024 3:08 PM RESIDENT PHYSICIAN IN RADIOLOGY Body Mass Index 31.62 09/29/2024 3:08 PM RESIDENT PHYSICIAN IN RADIOLOGY Plan of Treatment Health Maintenance Due Date [...] PELVIS WO CONTRAST ED 09/29/2024 6:43 PM RESIDENT PHYSICIAN IN RADIOLOGY EGFR STAT 09/29/2024 3:13 PM RESIDENT PHYSICIAN IN RADIOLOGY HEMOGLOBIN A1C Routine 10/04/2021 10:45 AM RESIDENT PHYSICIAN IN RADIOLOGY Preop testing LIPID PANEL Routine 03/09/2021 5:04 AM CDT from Last 3 Months or Most Recently Relevant to Health Maintenance Results * CT Abdomen Pelvis WO Contrast (09/29/2024 6:43 PM RESIDENT PHYSICIAN IN RADIOLOGY) Anatomical Region Laterality Modality Body N/A Computed Tomogra phy 09/29/2024 6:41 PM RESIDENT PHYSICIAN IN RADIOLOGY Impressions 09/29/2024 11:18 PM RESIDENT PHYSICIAN IN RADIOLOGY 1. Minimal nonspecific bilateral perinephric stranding. No acute urinary tract findings otherwise. 2. Low stool burden with colonic diverticulosis. No acute bowel findings otherwise. 3. Enlarged prostate with distended urinary bladder. See discussion above. Stat report by [facility] Electronically signed by: Oswaldo Botello M.D. Narrative 09/29/2024 11:18 PM RESIDENT PHYSICIAN IN RADIOLOGY EXAMINATION: CT ABDOMEN PELVIS WO CONTRAST DATE: [...] Result * (ABNORMAL) eGFR (09/29/2024 3:13 PM RESIDENT PHYSICIAN IN RADIOLOGY) eGFR 36(L) >=60 mL/min/1. 73 m2 Comment: [...] last reviewed 2021. Blood 09/29/2024 3:13 PM RESIDENT PHYSICIAN IN RADIOLOGY 09/29/2024 3:18 PM RESIDENT PHYSICIAN IN RADIOLOGY Reese Waller MD LAB BLOOD ORDERABLES Fi nal Result VAL[facility] [address] Department [place] [address] * (ABNORMAL) Hemoglobin A1c (10/04/2021 10:45 AM RESIDENT PHYSICIAN IN RADIOLOGY) Hgb A1C 6.6(H) 4.0 - 5.6 % [facility]IE HOUSER Estimated Average Glucose 143 mg/dL [facility] HOUSER Comment: The ADA recommends reporting an estimated Average Glucose (eAG) with all Hemoglobin A1c results using the equation derived from a study of 507 normal and diabetic adults. Minority populations were underrepresented and children were not included. (Diabetes Care 31:4880-8486, 2008). The eAG is not equivalent to a fasting glucose. Blood 10/04/2021 10:4 5 AM RESIDENT PHYSICIAN IN RADIOLOGY 10/04/2021 11:11 AM RESIDENT PHYSICIAN IN RADIOLOGY us Alexandre Godinez MD LAB BLOOD ORDERABLES Final Res ult [facility] [address] [facility] Department [place] [address] * (ABNORMAL) Lipid panel (03/09/2021 5:04 AM [...] LAB BLOOD ORDERABLES Final Result [facility]IE HOUSER [address] Department [place] [address] from Last 3 Months or Most Recently Relevant to Health Maintenance Insurance [facility] MEDICARE ADVANT[facility] Address: [address] [address] [place] [address] [facility] MEDICARE ADVANTAGE [facility] Address: [address] [address] [place] [address] [facility] MEDICARE ADVANTAGE [facility] Address: [address] [address] [place] [address] [facility] MDCR HMO REF [facility] Address: [facility] [address] [place] [address] Advance Directives For more information, please contact: [phone] * Full Code (Latest Code Status on File) Date Activated Date Inactivated Comments 01/07/2023 9:03 PM 01/08/2023 8:55 PM * Full Code Date Activated Date Inactivated Comments 10/08/2021 6:40 PM 10/09/2021 6:54 PM * Full Code Date Activated Date Inactivated Comments 04/13/2021 8:38 PM 04/15/2021 9:43 PM * Full Code Date Activated Date Inactivated Comments 03/08/2021 12:34 PM 03/10/2021 11:12 PM Care Teams Weight Count Operator Relationship Specialty Start Date End Date Naveen Lott MD [address] [address] PCP - General 12/02/16 Alexandre Godinez MD [address] [facility] [address] [place] [address] Surgeon Neurosurgery 03/10/21 [place] [address] [facility] [address] [place] [address] Consulting Physician Neurology 03/10/21
--- OUTSIDE RECORDS SUMMARY | 2025-02-17 13:10 | XMS_ITS | Referral Summary ---
Author Organization [facility] [address] Address [address] [place] [address] Care Team Providers Care Hollow Ware Maker Name Role Phone Naveen Lott MD Primary Care Provider Alexandre Godinez MD Unavailable [phone] Radha JIN MD, Can Bishop Unavailable [phone] Allergies No known active allergies Medications pantoprazole [...] (08/20/2021): Added automatically from request for surgery [id number] S/P carotid endarterectomy 04/13/2021 Stenosis of right carotid artery 04/01/2021 Overview (04/01/2021): Added automatically from request for surgery [id number] [facility] 03/08/2021 Coronary artery disease invo lving [employer] coronary artery of [employer] heart without angina pectoris 04/27/2017 S/P coronary [...] on file Legal Sex Male 9:17 AM 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 Gender Identity Not on file Sexual Orientation Not on file Last Filed Vital Signs Vital Sign Reading Time Taken Comments Blood Pressure 139/43 09/29/2024 10:05 PM PLANT ACCOUNTANT Pulse 63 09/29/2024 10:05 PM PLANT ACCOUNTANT Temperature 36.9 C (98.5 F) 09/29/2024 10:05 PM PLANT ACCOUNTANT Respiratory Rate 19 09/29/2024 10:05 PM PLANT ACCOUNTANT Oxygen Saturation 93% 09/29/2024 10:05 PM PLANT ACCOUNTANT Inhaled Oxygen Concentration - - Weight 86.2 kg (190 lb 0.6 oz) 09/29/2024 3:08 P M PLANT ACCOUNTANT Height 165.1 cm (5' 5) 09/29/2024 3:08 PM PLANT ACCOUNTANT Body Mass Index 31.62 09/29/2024 3:08 PM PLANT ACCOUNTANT Plan of Treatment Not on file Procedures Procedure Name Priority Date/Time Associated Diagnosis Comments CT ABDOMEN PELVIS WO CONTRAST ED 09/29/2024 6:43 PM PLANT ACCOUNTANT EGFR STAT 09/29/2024 3:13 PM PLANT ACCOUNTANT HEMOGLOBIN A1C Routine 10/04/2021 10:45 AM PLANT ACCOUNTANT Preop testing LIPID PANEL Routine 03/09/2021 5:04 AM CDT from Last 3 Months or Most Recently Relevant to Health Maintenance Results * CT Abdomen Pelvis WO Contrast (09/29/2024 6:43 PM PLANT ACCOUNTANT) Anatomical Region Laterality Modality Body N/A Computed Tomogra phy 09/29/2024 6:41 PM PLANT ACCOUNTANT Impressions 09/29/2024 11:18 PM PLANT ACCOUNTANT 1. Minimal nonspecific bilateral perinephric stranding. No acute urinary tract findings otherwise. 2. Low stool burden with colonic diverticulosis. No acute bowel findings otherwise. 3. Enlarged prostate with distended urinary bladder. See discussion above. Stat report by [facility] Electronically signed by: Oswaldo Botello M.D. Narrative 09/29/2024 11:18 PM PLANT ACCOUNTANT EXAMINATION: CT ABDOMEN PELVIS WO CONTRAST DATE: [...] See discussion above. Stat report by [facility] Electronically signed by: Oswaldo Botello M.D. Reese Waller MD IMG CT PROCEDURES Final Result * (ABNORMAL) eGFR (09/29/2024 3:13 PM PLANT ACCOUNTANT) eGFR 36(L) >=60 mL/min/1. 73 m2 Comment: [...] last reviewed 2021. Blood 09/29/2024 3:13 PM PLANT ACCOUNTANT 09/29/2024 3:18 PM PLANT ACCOUNTANT Reese Waller MD LAB BLOOD ORDERABLES Fi nal Result [address] [facility] [place] [address] * (ABNORMAL) Hemoglobin A1c (10/04/2021 10:45 AM PLANT ACCOUNTANT) Hgb A1C 6.6(H) 4.0 - 5.6 % VALREIE HOUSER Estimated Average Glucose 143 mg/dL VALERIE HOUSER Comment: The ADA recommends reporting an estimated Average Glucose (eAG) with all Hemoglobin A1c results using the equation derived from a study of 507 normal and diabetic adults. Minority populations were underrepresented and children were not included. (Diabetes Care 31:3091-6938, 2008). The eAG is not equivalent to a fasting glucose. Blood 10/04/2021 10:4 5 AM PLANT ACCOUNTANT 10/04/2021 11:11 AM PLANT ACCOUNTANT Alexandre Godinez MD LAB BLOOD ORDERABLES Final Res ult [address] [facility] [place] [address] * (ABNORMAL) Lipid panel (03/09/2021 5:04 AM [...] LAB BLOOD ORDERABLES Final Result VALERIE HOUSER [address] [place] [address] from Last 3 Months or Most Recently Relevant to Health Maintenance Insurance [facility] MEDICARE ADVANTAGE [facility] MEDIC[facility] Address: [address] [address] [place] [address] [facility] Address: [address] [address] [place] [address] [facility] Address: [address] [address] [place] [address] [facility] MDCR HMO REF [facility] MEDIC[facility] Address: [facility] [address] [place] [address] Advance Directives For more information, please contact: [phone] * Full Code (Latest Code Status on File) Date Activated Date Inactivated Comments 01/07/2023 9:03 PM 01/08/2023 8:55 PM * Full Code Date Activated Date Inactivated Comments 10/08/2021 6:40 PM 10/09/2021 6:54 PM * Full Code Date Activated Date Inactivated Comments 04/13/2021 8:38 PM 04/15/2021 9:43 PM * Full Code Date Activated Date Inactivated Comments 03/08/2021 12:34 PM 03/10/2021 11:12 PM Care Teams Hollow Ware Maker Relationship Specialty Start Date End Date Naveen Lott MD [address] [address] PCP - General 12/02/16 Alexandre Godinez MD [address] [facility] [address] [address] Surgeon Neurosurgery 03/10/21 [place] [address] [facility] [address] [place] [address] Consulting Physician Neurology 03/10/21
--- OUTSIDE RECORDS SUMMARY | 2025-02-17 13:10 | XMS_ITS | Clinical Summary ---
Author Organization [facility] Address [address] [place] [address] Care Team Providers Care Tableau Lead Name Role Phone Unavailable Primary Care Provider [...] patient's age to complete this topic Insurance [facility]
--- OUTSIDE RECORDS SUMMARY | 2025-02-17 13:10 | XMS_ITS | Clinical Summary ---
Author Organization [facility] Address [address] [place] [address] Phone Care Team Providers Care Cost Consultant Name Role Phone Naveen Lott MD Primary Care Provider [phone] Allergies No known active allergies Medications atorvastatin [...] (09/09/2021): Added automatically from request for surgery [id number] History of carotid endarterectomy 04/13/2021 History of [...] on file Legal Sex Male 1:43 PM [facility] Gender Identity Not on file Sexual [...] Ended) 2025 08/04/20 21 Insurance Care Teams Cost Consultant Relationship Specialty Start Date End Date Naveen Lott MD [address] [facility] [address] [facility] [address] [place] [address] PCP - General Internal Medicine 09/07/21
--- OUTSIDE RECORDS SUMMARY | 2025-02-17 13:10 | XMS_ITS | Clinical Summary ---
Author Organization [facility] Address [address] [place] [address] Care Team Providers Care Shift Foreman Name Role Phone Naveen Lott MD Primary Care Provider [phone] Source Comments [facility],non-owned Affiliates and Associated Physician Practices is amultiple site organization consisting of ambulatory clinics and hospital sitesin [place], [place], [place] and [place]. This disclosure is being madepursuant to the Care Everywhere program and may not contain all information available regarding this patient. Last updated 18.[facility] Allergies No known active allergies Medications * [...] patient's age to complete this topic Insurance [facility] MANAGED MEDICARE ADV [place] [id number] [facility] MANAGED MEDICARE ADV Care Teams Shift Foreman Relationship Specialty Start Date End Date Naveen Lott MD [address] [place] [address] PCP - General 03/03/21
== END 2025-02-17 12:07 | disposition home or self-care (01) ==
PROVIDERS: PCP Family Medicine; Visit Provider Family Medicine
DX: J44.9 Chronic obstructive pulmonary disease, unspecified (principal); J98.11 Atelectasis
CPT/HCPCS: 71046

== ENCOUNTER 2025-02-20 02:24 | Inpatient (IN) | payer MEDICARE, SELFPAY ==
[2025-02-20] VITALS (26 sets, daily range): BP systolic 84–208; BP diastolic 56–86; PULSE 68–102; RESP 16–25; TEMP 36.4–36.6; O2SAT 83–100; BMI 30.1
--- NOTE | 2025-02-20 | ECHO_ITS ---
Patient Info Name: Enzo Pérez Age: 84 years : 1940 Gender: Male Ht: 65 in Wt: 183 lbs BSA: 1.98 m2 HR: 83 bpm BP: 168 / 72 mmHg Technical Quality: Fair Exam Date: 02/20/2025 3:15 PM Patient Status: O Admit Date: 02/20/2025 Exam Type: CA echo doppler color flow Complete two-dimensional, color flow and Doppler transthoracic echocardiogram is performed. Staff Referring Physician: Ivan Lau Automobile Drivers: Erika Reyes Attending Provider: Jackie Quinones DO Summary 1. Complete two-dimensional, color flow and Doppler transthoracic echocardiogram is performed. 2. Left ventricular chamber dimension is normal. 3. Left ventricular systolic function is normal, estimated at 65-70. 4. The left ventricular diastolic function is grade I diastolic dysfunction. 5. E/e' 12 is mildly elevated. 6. The aortic valve is not well visualized. Cannot determine number of aortic valve leaflets. Left Ventricle E/e' 12 is mildly elevated. Left ventricular chamber dimension is normal. Left ventricular systolic function is normal, estimated at 65-70. The left ventricular diastolic function is grade I diastolic dysfunction. Right Ventricle Right ventricular chamber dimension is normal. Right ventricular systolic function is normal and with normal TAPSE 2.2 cm. Left Atria Left atrial chamber dimension is normal. Right Atria Right atrial chamber dimension is normal. Aortic Valve The aortic valve is not well visualized. Cannot determine number of aortic valve leaflets. There is no aortic valve stenosis based on normal valve area. There is no aortic valve regurgitation. Pulmonic Valve There is no pulmonic regurgitation. Mitral Valve There is no mitral valve stenosis. There is no mitral valve regurgitation. Tricuspid Valve There is no tricuspid valve regurgitation. Pericardium/Pleural There is no pericardial effusion. Inferior Vena Cava Normal inferior vena cava with >50% collapse upon inspiration consistent with normal right atrial pressure, 5 mmHg. Aorta The aortic root size at the sinus of Valsalva is normal. Left Ventricular Outflow Tract Name Value Normal LVOT 2D LVOT Diameter 2.0 cm LVOT Doppler LVOT Peak Velocity 163 cm/s LVOT Peak Gradient 11 mmHg LVOT Mean Gradient 6 mmHg LVOT VTI 35 cm LVOT VTI/AV VTI Ratio 0.7 LVOT Stroke Volume 106 ml LVOT CO 8.8 l/min LVOT CI 4.5 l/min/m2 Mitral Valve Name Value Normal MV Diastolic Function MV E Peak Velocity 78 cm/s MV A Peak Velocity 110 cm/s MV E/A 0.7 MV Decel Time (PW) 328 ms MV Annular TDI MV E/e' (Septal) 10.9 MV E/e' (Lateral) 14.6 MV E/e' (Average) 12.7 Tricuspid Valve Name Value Normal Estimated PAP/RSVP RA Pressure 5 mmHg <=5 Aortic Valve Name Value Normal AV Doppler AV Peak Velocity 213 cm/s AV Peak Gradient 14 mmHg AV Mean Gradient 9 mmHg AV VTI 48 cm AV Area (Cont Eq VTI) 2.2 cm2 >=3.0 AV Area (Cont Eq Eder) 2.3 cm2 AV DI (Eder) 0.77 AV Regurgitation 2D LVOT Area 3.0 cm2 Ventricles Name Value Normal LV Dimensions 2D/MM IVS Diastolic Thickness (2D) 0.8 cm 0.6-1.0 LVID Diastole (2D) 4.6 cm 4.2-5.8 LVIW Diastolic Thickness (2D) 1.0 cm 0.6-1.0 LVID Systole (2D) 2.8 cm 2.5-4.0 LVOT Diameter 2.0 cm LV Mass (2D Cubed) 139.72 g 88.00-224.00 LV Mass Index (2D Cubed) 71 g/m2 49-115 Relative Wall Thickness (2D) 0.45 <=0.42 LV Fractional Shortening/Ejection Fraction 2D/MM LV Fractional Shortening (2D) 39 % 25-43 LV EF (2D Teichholz) 69 % LV Diastolic Volume (4C MOD) 86 ml LV EF (4C MOD) 66 % LV Diastolic Volume (2C MOD) 60 ml LV EF (2C MOD) 59 % LV Diastolic Volume (BP MOD) 77 ml 62-150 LV Diastolic Volume Index (BP MOD) 39 ml/m2 34-74 LV Systolic Volume (BP MOD) 28 ml 21-61 LV Systolic Volume Index (BP MOD) 14 ml/m2 11-31 LV EF (BP MOD) 64 % 52-72 LV Diastolic Length (4C) 8.5 cm LV Systolic Length (4C) 7.2 cm LV Stroke Volume (4C MOD) 56 ml Atria Name Value Normal LA Dimensions LA Volume (4C A-L) 51 ml LA Volume (BP A-L) 40 ml Report Signatures
--- NOTE | ~2025-02-20 | CT_ITS ---
CLINICAL INDICATION: Shortness of breath and worsening cough COMPARISON: 02/10/2025. Reference is also made to plain film evaluations of the chest performed 02/20/2025 and dating back to 08/23/2023. TECHNIQUE: Multiple contiguous axial images of the chest was performed without the administration of intravenous contrast. This CT examination was performed utilizing dose reduction techniques. DLP: 337 mGy-cm FINDINGS/OBSERVATIONS: LUNG: Panlobular emphysematous disease. Bibasilar centrilobular nodularity with associated part solid opacification, left greater than right. No significant pleural effusion. Trace bibasilar bronchiectasis, right greater than left. Calcified nodules within the bilateral lung bases suggesting prior granulomatous disease. HEART: The heart is of normal size, without pericardial effusion. Aortic and mitral valve calcifications. MEDIASTINUM: Calcified lymph nodes within the bilateral jossie and subcarinal lymph node station suggesting prior gr anulomatous disease. Limited evaluation of noncalcified lymph nodes secondary to the lack of intravenous contrast. SOFT TISSUES OF THE CHEST: Unremarkable. BONES OF THE CHEST: No acute fracture. No lytic or blastic lesions are identified. UPPER ABDOMEN: Small hiatal hernia. Fatty atrophy of the pancreas. Punctate calcifications identified within the splenic parenchyma, suggesting prior granulomatous dise ase. IMPRESSION: Findings suggesting prior granulomatous disease. Panlobular emphysematous disease. Interval development of bibasilar centrilobular nodularity with associated groundglass and part solid opacification, left greater than right. No air bronchograms are identified within this opacification to suggest the presence of an infiltrate . No pleural effusions. Reviewed, dictated and finalized at location A. IMPRESSION: Findings suggesting prior granulomatous disease. Panlobular emphysematous disease. Interval development of bibasilar centrilobular nodularity with associated grou ndglass and part solid opacification, left greater than right. No air bronchograms are identified within this opacification to suggest the pre sence of an infiltrate. No pleural effusions.
--- NOTE | ~2025-02-20 | XR_ITS ---
Clinical Indication: Shortness of breath PA and lateral views of the chest: Comparison: 02/17/2025 Findings: Questionable minimal pleural effusions with bibasilar atelectatic change. Probable underlyi ng COPD.. Cardiomediastinal silhouette is within normal limits. Bones and soft tissues are unremarka ble. Impression: Questionable minimal pleural effusions with mild bibasilar atelectatic change. Underlying COPD. Reviewed, dictated and finalized at location M. Impression: Questionable minimal pleural effusions with mild bibasilar atelectatic change. Underlying COPD.
--- NOTE | 2025-02-20 02:31 | ECG_ITS ---
Test Date: 2025-02-20 02:33:00 Measurements Intervals [place] Rate: 90 P: 66 CA: 195 QRS: -50 QRSD: 117 T: 113 QT: 381 QTc: 468 Interpretive Statements SINUS RHYTHM LEFT AXIS DEVIATION INTRAVENTRICULAR CONDUCTION DELAY LEFT VENTRICULAR HYPERTROPHY AND ST-T CHANGE CANNOT R/O SEPTAL INFARCT, AGE INDETERMINATE ABNORMAL ECG Compared to ECG 02/10/2025 03:21:08 HEART RATE HAS DECREASED Electronically Signed On 02-20-2025 07:25:57 CDT by Eduardo Haywood D.O.
[2025-02-20 02:44] LABS: Basophils Percent Auto 0.3 % (0.2-1.2); Eosinophils Percent Auto 0.1 % (0-4.4); Hematocrit 36.3 % (42.0-52.0); Hemoglobin 10.9 g/dL (14.0-18.0); Immature Granulocyte Absolute 0.08 K/mm3 (0.00-0.031); Immature Granulocyte Percent A 0.6 % (0-0.5); Lymphocytes Absolute Auto 4.08 K/mm3 (0.9-3.2); Lymphocytes Percent Auto 29.2 % (18.3-44.2); Mean Corpuscular Hemoglobin 22.7 pg (26-34); Mean Corpuscular Volume 75.6 fl (80-100); Mean Platelet Volume 9.9 fl (7.4-10.4); Monocytes Absolute Auto 0.9 K/mm3 (0.1-0.6); Monocytes Percent Auto 6.4 % (2.6-8.5); Neutrophils Absolute Auto 8.9 K/mm3 (1.3-6.7); Neutrophils Percent Auto 63.4 % (45.5-73.1); Platelet Count Result 481 k/mm3 (150-375); Red Cell Distribution Width 19.9 % (11.5-14.5)
[2025-02-20 02:56] LABS: Alanine Aminotransferase 30 U/L (6-50); Albumin Level 3.8 g/dL (3.5-5.1); Alkaline Phosphatase 91 U/L (38-126); Anion Gap 10 mmol/L (4-12); Aspartate Amino Transferase 26 U/L (17-59); Bilirubin,Total 0.5 mg/dL (0.2-1.3); Blood Urea Nitrogen 32 mg/dL (9-20); Calcium 9.4 mg/dL (8.4-10.2); Carbon Dioxide 26 mmol/L (22-30); Chloride 106 mmol/L (98-107); Estimated CRCL calculation 35 ml/min; Estimated Glomerular Filt Rate 45; Glucose 134 mg/dL (65-110); Potassium 3.5 mmol/L (3.4-5.0); Sodium 142 mmol/L (137-145); Total Protein 7.1 g/dL (6.3-8.2)
[2025-02-20] MEDS: cloNIDine HCL 0.2 MG TABLET PO ×2 (03:06→20:02)
--- NOTE | 2025-02-20 03:14 | ED.SOB ---
HPI - SOB/Dyspnea General Chief Complaint: Shortness of Breath/Dyspnea Stated Complaint: SOB Time Seen by Provider: 02/20/25 02:50 History of Present Illness HPI Narrative: 84-year-old male with history of coronary disease, renal artery stenosis, hypertension, hyperlipidemia, emphysema. Patient presents to the emergency department for ongoing shortness of breath and cough. Cough is nonproductive for last several weeks he is having worsening respiratory status despite multiple visits to the ER and his primary care provider. Has not seen a electronic game developer. Does not use any nebulizer treatments or CPAP at home. He states that he coughs frequently and feels like he can not catch his breath ever and is worsening. Denies any chest pain or pleuritic chest pain, no nausea, vomiting, headache, vision changes, back pain, fever, chills. Was otherwise in his normal state of health. Related Data Home Medications ?Medication ?Instructions ?Recorded ?Confirmed ?Last Taken ?Type aspirin 81 mg tablet,delayed 81 mg PO DAILY 10/16/19 02/17/25 08/23/23 08:00 History release (Adult Aspirin Regimen) clopidogrel 75 mg tablet 75 mg PO DAILY 08/12/21 02/17/25 08/23/23 08:00 History clonidine HCl 0.1 mg tablet 0.1 mg PO USEASDIRECTD 08/24/23 02/17/25 Unknown History Allergies Allergy/AdvReac Type Severity Reaction Status Date / Time No Known Allergies Allergy Verified 02/17/25 11:18 Review of Systems Review of Systems: As reviewed above in HPI [facility] Past Medical History Medical History Renal artery stenosis Peripheral vascular disease Coronary artery disease Colorectal cancer Type 2 diabetes mellitus Hypertension Gastroesophageal reflux disease Chronic kidney disease, stage 3 Diabetic neuropathy Mixed hyperlipidemia Carotid artery stenosis Surgical History Surgical History History of right-sided carotid endarterectomy History of cholecystectomy History of cataract extraction History of coronary artery stent placement History of colon surgery Family History Family History Mother Family history of coronary artery disease Cerebrovascular accident Sibling Family history of coronary artery disease Other Hypertension Other Diabetes mellitus Father Diabetes mellitus Other Family history of cardiovascular disease Social History Social History Social History: Surrogate medical decision maker: Cassius Pérez, brother. Code status: Full code. Smoking packs per day: 2 Smoking cigarettes per day: 40.0 Years smoked: 57 Smoking pack-years: 114.00 Smoking status: Former smoker Tobacco type: cigarettes Second hand tobacco smoke exposure: No Alcohol intake: never Substance use: never Substance use type: does not use Do You Feel Safe in your Home?: Yes Lack of Transportation: No Lack of Food: Never True Current Housing: I Have Housing Concerned About Future Housing: No Difficulty Paying Gas/Electric Bills: No Difficulty Paying for Meds: No Currently Unemployed: No Education: High School Diploma/GED Difficulty w/ Childcare or Family Care: No Living arrangements: alone Additional living arrangements comments: Lives in [place]. . Has 1 son. 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 Gender identity (if verbalized by the patient): Male Spiritual care concerns: No Exam Narrative: GENERAL: Coughing frequently, not any acute physical distress, tachypneic HEAD: [Normocephalic, atraumatic.] EYES: [PERRLA and EOMI.] ENT: Nares clear, no rhinorrhea or epistaxis. Mucous membranes moist. NECK: Supple. CHEST: Coarse bilateral breath sounds with wheezing, decreased air entry, no accessory muscle use HEART: [Regular rate and rhythm]. No murmur heard. [Normal peripheral pulses.] ABDOMEN: [Soft, nondistended], [nontender], [No rigidity or guarding] EXTREMITIES: Normal range of motion. [No edema.] SKIN: Warm, dry, no rash. NEURO: [No focal deficits]. Alert and oriented [x3.] PSYCH: [Normal mood and affect.] Course Vital Signs Vital signs: Vital Signs Temperature 36.6 C 02/20/25 02:24 Pulse Rate 88 02/20/25 02:24 Respiratory Rate 24 H 02/20/25 02:24 Blood Pressure 207/64 H 02/20/25 02:24 Pulse Oximetry 95 02/20/25 02:24 Oxygen Delivery Room Air 02/20/25 02:24 Temperature 36.6 C 02/20/25 02:24 Pulse Rate 95 02/20/25 06:51 Respiratory Rate 21 H 02/20/25 06:51 Blood Pressure 193/61 H 02/20/25 06:51 Pulse Oximetry 93 02/20/25 06:51 Oxygen Delivery Nasal Cannula 02/20/25 04:00 Oxygen Flow Rate 3 02/20/25 04:00 MDM - SOB/Dyspnea MDM Narrative Medical decision making narrative: 84-year-old male with history of CAD, renal artery stenosis, hypertension, hyperlipidemia, emphysematous lungs. Patient presents with ongoing cough and shortness of breath x2 weeks despite multiple ER visits and primary care provider visits. He is very coarse breath sounds with wheezing and decreased air entry on examination. He is tachypneic but saturating currently 90-95% on room air. Does not use any oxygen or inhalers at home. Never seen a electronic game developer. He is hypertensive to the 200s but did not take his evening clonidine. He has a history of renal artery stenosis and refractory hypertension. Patient's care was reviewed during previous hospital visits and ER visit/primary care provider visits and he has had extensive workup including x-rays and CT angiography without any acute findings aside from suspected bronchitis. Patient's clinical exam suspicious for bronchitis versus emphysema causing symptomatology, potential pneumonia pneumothorax. Low suspicion ACS or other intrathoracic process given negative CT angiography besides emphysema. Treated with nebulizer albuterol and ipratropium, magnesium bolus and steroids. He was given azithromycin IV and laboratory studies, chest x-ray and EKG were obtained. Given his evening dose of clonidine p.o. Patient was re-evaluated after nebulizer treatments and had significant improvement. He is requiring some supplemental oxygen as he does have occasional desaturations in the high 80s. Workup so far shows a leukocytosis of 14.0, hemoglobin 10.9 around baseline. Blood gas shows respiratory alkalosis from tachypnea, pH 7.45. Electrolytes unremarkable. BUN and creatinine around baseline. Glucose 134. Normal LFTs. BNP is negative. Chest x-ray shows underlying COPD with minimal bibasilar atelectatic changes. Given patient's some oxygen requirements and need for bronchodilator therapy he will be admitted to the hospital. Discussed the case with Dr. Polanco who accepted him to a telemetry monitored bed. Schedule nebulization was ordered and he he was given his home clonidine for blood pressure control. Medical Records Attestation: I reviewed the patient's medical records. Lab Data Attestation: I reviewed the patient's lab results. 02/20/25 02:33 02/20/25 02:33 Labs: Lab Results 02/20/25 02/20/25 02/20/25 Range/Units 02:33 04:11 05:58 WBC 14.0 H (4.5-10.0) K/mm3 RBC 4.80 (4.6-6.20) M/mm3 Hgb 10.9 L (14.0-18.0) g/dL Hct 36.3 L (42.0-52.0) % MCV 75.6 L (80-100) fl MCH 22.7 L (26-34) pg MCHC 30.0 L (32-36) g/dl RDW 19.9 H (11.5-14.5) % Plt Count 481 H D (150-375) k/mm3 MPV 9.9 (7.4-10.4) fl Immature Gran % (Auto) 0.6 H (0-0.5) % Neut % (Auto) 63.4 (45.5-73.1) % Lymph % (Auto) 29.2 (18.3-44.2) % [place] % (Auto) 6.4 (2.6-8.5) % Eos % (Auto) 0.1 (0-4.4) % Baso % (Auto) 0.3 (0.2-1.2) % Lymph # (Auto) 4.08 H (0.9-3.2) K/mm3 [place] # (Auto) 0.9 H (0.1-0.6) K/mm3 Eos # (Auto) 0.0 (0-0.3) K/mm3 Baso # (Auto) 0.0 (0.0-0.1) K/mm3 Abs Immat Gran (auto) 0.08 H (0.00-0.031) K/mm3 Absolute Neuts (auto) 8.9 H (1.3-6.7) K/mm3 Absolute Nucleated RBC 0.000 (0.0-0.012) K/mm3 Nucleated RBC % 0.0 (0.0-0.2) % Sodium 142 (137-145) mmol/L Potassium 3.5 (3.4-5.0) mmol/L Chloride 106 (98-107) mmol/L Carbon Dioxide 26 (22-30) mmol/L Anion Gap 10 (4-12) mmol/L BUN 32 H (9-20) mg/dL Creatinine 1.50 H (0.7-1.3) mg/dL Estim Creat Clear Calc 35 ml/min Estimated GFR 45 L (59 - ) Glucose 134 H (65-110) mg/dL Calcium 9.4 (8.4-10.2) mg/dL Total Bilirubin 0.5 (0.2-1.3) mg/dL AST 26 (17-59) U/L ALT 30 (6-50) U/L Alkaline Phosphatase 91 (38-126) U/L NT-Pro-B Natriuret Pep 672 H (19.9-100) pg/mL Total Protein 7.1 (6.3-8.2) g/dL Albumin 3.8 (3.5-5.1) g/dL Nasal RSV Type A (PCR) Pending Nasal RSV Type B (PCR) Pending Chlamy pneumoniae PCR Pending Adenovirus DNA Pending Human Bocavirus (DELFINA) Pending Coronavirus Type OC43 Pending Coronavirus Type HKU1 Pending Coronavirus Type 229E Pending Coronavirus Type NL63 Pending Human Metapneumovir PCR Pending Influenza A (PCR) Pending Influenza A (H1) RNA Pending Influenza A (H3) PCR Pending M. pneumoniae DNA Pending Parainfluenza PCR Pending Parainfluenza 2 (PCR) Pending Parainfluenza 3 RNA (PCR) Pending Parainfluenza 4 (PCR) Pending Rhino/Enterovirus (DELFINA) Pending SARS-CoV-2 RNA (RT-PCR) Pending Influenza Type B (PCR) [facility] Pending [facility] Data ABG results: 02/20/25 04:07 VBG pH 7.458 H* VBG pCO2 38.2 L VBG pO2 46.8 H VBG HCO3 26.4 O2 Delivery Device Nasal cannula O2 Liters/Min 3.0 FiO2 32 Imaging Data Attestation: I personally reviewed and interpreted this imaging study as follows: My impression: Impressions Chest X-Ray 02/20/25 05:50 Impression: Questionable minimal pleural effusions with mild bibasilar atelectatic change. Underlying COPD. ECG Data EKG #1: Attestation: I personally reviewed and interpreted this ECG as follows: ECG completion date: 02/20/25 ECG completion time: 02:33 Prior ECG tracings: available for review Interpretation: Sinus rhythm with left axis deviation, rate of 90 beats per minute, QTC 468, QRS 117, OK interval 195. No ST segment elevations, depressions. No significant oval change compared to prior. Critical Care Time Critical Care Time Critical Care Time: Yes Total Critical Care Time: 35 Discharge Plan Discharge Clinical Impression: Acute exacerbation of emphysema, Acute hypoxemic respiratory failure, Non-productive cough, Chronic hypertension Patient Disposition: Still a Patient Condition: Stable Patient Language: Arabic Prescriptions: No Action clopidogrel 75 mg tablet 75 mg PO DAILY aspirin [Adult Aspirin Regimen] 81 mg tablet,delayed release (DR/EC) 81 mg PO DAILY methocarbamol 500 mg tablet 500 mg PO TID PRN (Reason: muscle spasm) Qty: 15 0RF prednisone 10 mg tablet See Rx Instructions .Route .COMPLEX Qty: 18 0RF Rx Instructions: 3 tabs po qd x 3 d, then 2 tabs po qd x 3 d, then 1 tab po qd x 3 d ; clonidine HCl 0.1 mg tablet 0.1 mg PO USEASDIRECTD Rx Instructions: TAKE 2 TABLETS BY MOUTH EVERY MORNING , TAKE 1 TABLET IN AFTERNOON AND TAKE 2 TABLETS AT NIGHT (DME) blood-glucose meter [Accu-Chek Jaimee Plus Meter] [facility] [place] Rx Instructions .ROUTE .MEDSUPPLY Qty: 1 0RF Rx Instructions: Used once daily to check blood sugar (DME) lancets [Accu-Chek Multiclix Lancet] Misc See Rx Instructions .ROUTE .MEDSUPPLY Qty: 200 10RF Rx Instructions: Use once daily to check blood sugar (DME) Blood Glucose Test Strip See Rx Instructions .ROUTE .MEDSUPPLY Qty: 100 3RF Rx Instructions: Use once daily to check blood sugar ergocalciferol (vitamin D2) 1,250 mcg (50,000 unit) capsule 1,250 mcg PO WEEKLY Qty: 14 3RF gabapentin 100 mg capsule 100 mg PO TID Qty: 270 2RF polysaccharide iron complex 150 mg iron capsule 150 mg PO DAILY Qty: 90 3RF pantoprazole 40 mg tablet,delayed release (DR/EC) See Rx Instructions .ROUTE .COMPLEX Qty: 180 2RF Dose Instruction: TAKE 1 TABLET BY MOUTH TWICE A DAY Rx Instructions: TAKE 1 TABLET BY MOUTH TWICE A DAY tamsulosin 0.4 mg capsule 0.4 mg PO DAILY Qty: 90 2RF nifedipine 90 mg tablet extended release See Rx Instructions .ROUTE .COMPLEX Qty: 90 2RF Dose Instruction: TAKE 1 TABLET BY MOUTH EVERY DAY Rx Instructions: TAKE 1 TABLET BY MOUTH EVERY DAY chlorthalidone 25 mg tablet 25 mg PO DAILY Qty: 30 5RF lorazepam 0.5 mg tablet 0.5 mg PO BID PRN (Reason: anxiety) Qty: 45 0RF metformin 500 mg tablet extended release 24 hr 500 mg PO DAILY Qty: 90 2RF atorvastatin 40 mg tablet See Rx Instructions .ROUTE .COMPLEX Qty: 90 3RF Dose Instruction: TAKE 1 TABLET (40 MG) BY MOUTH DAILY Rx Instructions: TAKE 1 TABLET (40 MG) BY MOUTH DAILY irbesartan 300 mg tablet See Rx Instructions .ROUTE .COMPLEX Qty: 90 3RF Dose Instruction: TAKE 1 TABLET (300 MG) BY MOUTH DAILY Rx Instructions: TAKE 1 TABLET (300 MG) BY MOUTH DAILY Follow-up/Referrals: Naveen Lott MD [Primary Care Provider] - Time of Disposition: 07:05
--- OUTSIDE RECORDS SUMMARY | 2025-02-20 03:45 | XMS_ITS | Clinical Summary ---
Author Organization [facility] Address [address] [place] [address] Care Team Providers Care Professor Of Early Childhood Education Name Role Phone Unavailable Primary Care Provider [...] patient's age to complete this topic Insurance [facility]
--- OUTSIDE RECORDS SUMMARY | 2025-02-20 03:45 | XMS_ITS | Clinical Summary ---
Author Organization [facility] [address] Address [address] [place] [address] Care Team Providers Care Teamsite Developer Name Role Phone Naveen Lott MD Primary Care Provider Alexandre Godinez MD Unavailable [phone] Radha JIN MD, Can Bishop Unavailable [phone] Allergies No known active allergies Medications pantoprazole [...] (08/20/2021): Added automatically from request for surgery [id number] S/P carotid endarterectomy 04/13/2021 Stenosis of right carotid artery 04/01/2021 Overview (04/01/2021): Added automatically from request for surgery [id number] [facility] 03/08/2021 Coronary artery disease invo lving [place] coronary artery of [place] heart without angina pectoris 04/27/2017 S/P coronary [...] on file Legal Sex Male 9:17 AM HEALTH PLAN ADVISOR Gender Identity Not on file Sexual Orientation Not on file Obstetrics History Last Filed Vital Signs Vital Sign Reading Time Taken Comments Blood Pressure 139/43 09/29/2024 10:05 PM HEALTH PLAN ADVISOR Pulse 63 09/29/2024 10:05 PM HEALTH PLAN ADVISOR Temperature 36.9 C (98.5 F) 09/29/2024 10:05 PM HEALTH PLAN ADVISOR Respiratory Rate 19 09/29/2024 10:05 PM HEALTH PLAN ADVISOR Oxygen Saturation 93% 09/29/2024 10:05 PM HEALTH PLAN ADVISOR Inhaled Oxygen Concentration - - Weight 86.2 kg (190 lb 0.6 oz) 09/29/2024 3:08 P M HEALTH PLAN ADVISOR Height 165.1 cm (5' 5) 09/29/2024 3:08 PM HEALTH PLAN ADVISOR Body Mass Index 31.62 09/29/2024 3:08 PM HEALTH PLAN ADVISOR Plan of Treatment Health Maintenance Due Date [...] PELVIS WO CONTRAST ED 09/29/2024 6:43 PM HEALTH PLAN ADVISOR EGFR STAT 09/29/2024 3:13 PM HEALTH PLAN ADVISOR HEMOGLOBIN A1C Routine 10/04/2021 10:45 AM HEALTH PLAN ADVISOR Preop testing LIPID PANEL Routine 03/09/2021 5:04 AM CDT from Last 3 Months or Most Recently Relevant to Health Maintenance Results * CT Abdomen Pelvis WO Contrast (09/29/2024 6:43 PM HEALTH PLAN ADVISOR) Anatomical Region Laterality Modality Body N/A Computed Tomogra phy 09/29/2024 6:41 PM HEALTH PLAN ADVISOR Impressions 09/29/2024 11:18 PM HEALTH PLAN ADVISOR 1. Minimal nonspecific bilateral perinephric stranding. No acute urinary tract findings otherwise. 2. Low stool burden with colonic diverticulosis. No acute bowel findings otherwise. 3. Enlarged prostate with distended urinary bladder. See discussion above. Stat report by [facility] Electronically signed by: Oswaldo Botello M.D. Narrative 09/29/2024 11:18 PM HEALTH PLAN ADVISOR EXAMINATION: CT ABDOMEN PELVIS WO CONTRAST DATE: [...] Result * (ABNORMAL) eGFR (09/29/2024 3:13 PM HEALTH PLAN ADVISOR) eGFR 36(L) >=60 mL/min/1. 73 m2 Comment: [...] last reviewed 2021. Blood 09/29/2024 3:13 PM HEALTH PLAN ADVISOR 09/29/2024 3:18 PM HEALTH PLAN ADVISOR Reese Waller MD LAB BLOOD ORDERABLES Fi nal Result VALER[facility] [address] [place] [address] * (ABNORMAL) Hemoglobin A1c (10/04/2021 10:45 AM HEALTH PLAN ADVISOR) Hgb A1C 6.6(H) 4.0 - 5.6 % VALERIE HOUSER Estimated Average Glucose 143 mg/dL VALERIE HOUSER Comment: The ADA recommends reporting an estimated Average Glucose (eAG) with all Hemoglobin A1c results using the equation derived from a study of 507 normal and diabetic adults. Minority populations were underrepresented and children were not included. (Diabetes Care 31:5558-8866, 2008). The eAG is not equivalent to a fasting glucose. Blood 10/04/2021 10:4 5 AM HEALTH PLAN ADVISOR 10/04/2021 11:11 AM HEALTH PLAN ADVISOR us Alexandre Godinez MD LAB BLOOD ORDERABLES Final Res ult VALER[facility] [address] [facility] Department [place] [address] * (ABNORMAL) Lipid panel (03/09/2021 5:04 AM [...] LAB BLOOD ORDERABLES Final Result VALERIE HOUSER [address] [place] [address] from Last 3 Months or Most Recently Relevant to Health Maintenance Insurance [facility] MEDICARE ADVANTAGE [facility] MEDICARE ADVANTAGE [facility] MEDICARE ADVANTAGE [facility] MDCR HMO REF Advance Directives For more information, please contact: [phone] * Full Code (Latest Code Status on File) Date Activated Date Inactivated Comments 01/07/2023 9:03 PM 01/08/2023 8:55 PM * Full Code Date Activated Date Inactivated Comments 10/08/2021 6:40 PM 10/09/2021 6:54 PM * Full Code Date Activated Date Inactivated Comments 04/13/2021 8:38 PM 04/15/2021 9:43 PM * Full Code Date Activated Date Inactivated Comments 03/08/2021 12:34 PM 03/10/2021 11:12 PM Care Teams Teamsite Developer Relationship Specialty Start Date End Date Naveen Lott MD [address] [address] PCP - General 12/02/16 Alexandre Godinez MD [address] [facility] [address] [place] [address] Surgeon Neurosurgery 03/10/21 [place] [id number] [facility] [address] [place] [address] Consulting Physician Neurology 03/10/21
--- OUTSIDE RECORDS SUMMARY | 2025-02-20 03:45 | XMS_ITS | Clinical Summary ---
Author Organization [facility] Address [address] [place] [address] Care Team Providers Care Oil Producer Name Role Phone Naveen Lott MD Primary Care Provider [phone] Source Comments [facility],non-owned Affiliates and Associated Physician Practices is amultiple site organization consisting of ambulatory clinics and hospital sitesin [place], [place], [place] and [place]. This disclosure is being madepursuant to the Care Everywhere program and may not contain all information available regarding this patient. Last updated 18.[facility] Allergies No known active allergies Medications * [...] patient's age to complete this topic Insurance [facility] MA[facility] MEDICARE ADV [place] [id number] [facility] MEDICARE ADV Care Teams Oil Producer Relationship Specialty Start Date End Date Naveen Lott MD [address] [place] [address] PCP - General 03/03/21
--- OUTSIDE RECORDS SUMMARY | 2025-02-20 03:45 | XMS_ITS | Clinical Summary ---
Author Organization [facility] Address [address] [place] [address] Phone Care Team Providers Care Surface Plate Finisher Name Role Phone Naveen Lott MD Primary Care Provider [phone] Allergies No known active allergies Medications atorvastatin [...] (09/09/2021): Added automatically from request for surgery [id number] History of carotid endarterectomy 04/13/2021 History of [...] on file Legal Sex Male 1:43 PM [facility] Gender Identity Not on file Sexual [...] Vaccine (Season Ended) 2025 08/04/20 21 [place] [address] Care Teams Surface Plate Finisher Relationship Specialty Start Date End Date Naveen Lott MD [address] [facility] [address] [facility] [address] [place] [address] PCP - General Internal Medicine 09/07/21
--- OUTSIDE RECORDS SUMMARY | 2025-02-20 03:45 | XMS_ITS | Referral Summary ---
Author Organization [facility] [place] [address] Address [address] [place] [address] Care Team Providers Care Director Sales Support Name Role Phone Naveen Lott MD Primary Care Provider Alexandre Godinez MD Unavailable [phone] Radha JIN MD, Can Bishop Unavailable [phone] Allergies No known active allergies Medications pantoprazole [...] (08/20/2021): Added automatically from request for surgery [id number] S/P carotid endarterectomy 04/13/2021 Stenosis of right carotid artery 04/01/2021 Overview (04/01/2021): Added automatically from request for surgery [id number] [facility] 03/08/2021 Coronary artery disease invo lving [place] coronary artery of [place] heart without angina pectoris 04/27/2017 S/P coronary [...] on file Legal Sex Male 9:17 AM [employer] Gender Identity Not on file Sexual Orientation Not on file Last Filed Vital Signs Vital Sign Reading Time Taken Comments Blood Pressure 139/43 09/29/2024 10:05 PM [employer] Pulse 63 09/29/2024 10:05 PM [employer] Temperature 36.9 C (98.5 F) 09/29/2024 10:05 PM [employer] Respiratory Rate 19 09/29/2024 10:05 PM [employer] Oxygen Saturation 93% 09/29/2024 10:05 PM [employer] Inhaled Oxygen Concentration - - Weight 86.2 kg (190 lb 0.6 oz) 09/29/2024 3:08 P M [employer] Height 165.1 cm (5' 5) 09/29/2024 3:08 PM [employer] Body Mass Index 31.62 09/29/2024 3:08 PM [employer] Plan of Treatment Not on file Procedures Procedure Name Priority Date/Time Associated Diagnosis Comments CT ABDOMEN PELVIS WO CONTRAST ED 09/29/2024 6:43 PM [employer] EGFR STAT 09/29/2024 3:13 PM [employer] HEMOGLOBIN A1C Routine 10/04/2021 10:45 AM [employer] Preop testing LIPID PANEL Routine 03/09/2021 5:04 AM CDT from Last 3 Months or Most Recently Relevant to Health Maintenance Results * CT Abdomen Pelvis WO Contrast (09/29/2024 6:43 PM [employer]) Anatomical Region Laterality Modality Body N/A Computed Tomogra phy 09/29/2024 6:41 PM [employer] Impressions 09/29/2024 11:18 PM [employer] 1. Minimal nonspecific bilateral perinephric stranding. No acute urinary tract findings otherwise. 2. Low stool burden with colonic diverticulosis. No acute bowel findings otherwise. 3. Enlarged prostate with distended urinary bladder. See discussion above. Stat report by [facility] Electronically signed by: Oswaldo Botello M.D. Narrative 09/29/2024 11:18 PM [employer] EXAMINATION: CT ABDOMEN PELVIS WO CONTRAST DATE: [...] bladder. See discussion above. Stat report by [facility] Electronically signed by: Oswaldo Botello M.D. Reese Waller MD IMG CT PROCEDURES Final Result * (ABNORMAL) eGFR (09/29/2024 3:13 PM [employer]) eGFR 36(L) >=60 mL/min/1. 73 m2 Comment: [...] last reviewed 2021. Blood 09/29/2024 3:13 PM [employer] 09/29/2024 3:18 PM [employer] Reese Waller MD LAB BLOOD ORDERABLES Fi nal Result [facility] [address] [facility] [place] [address] * (ABNORMAL) Hemoglobin A1c (10/04/2021 10:45 AM [employer]) Hgb A1C 6.6(H) 4.0 - 5.6 % [facility] HOUSER Estimated Average Glucose 143 mg/dL [facility]ER Comment: The ADA recommends reporting an estimated Average Glucose (eAG) with all Hemoglobin A1c results using the equation derived from a study of 507 normal and diabetic adults. Minority populations were underrepresented and children were not included. (Diabetes Care 31:6089-9388, 2008). The eAG is not equivalent to a fasting glucose. Blood 10/04/2021 10:4 5 AM [employer] 10/04/2021 11:11 AM [employer] Alexandre Godinez MD LAB BLOOD ORDERABLES Final Res ult [address] Department [place] [address] * (ABNORMAL) Lipid panel (03/09/2021 5:04 AM [...] LAB BLOOD ORDERABLES Final Result [facility]IE HOUSER [address] Department [place] [address] from Last 3 Months or Most Recently Relevant to Health Maintenance Insurance [facility] MEDICARE ADVANTAGE [facility] MDCR HMO REF Advance Directives For more information, please contact: [phone] * Full Code (Latest Code Status on File) Date Activated Date Inactivated Comments 01/07/2023 9:03 PM 01/08/2023 8:55 PM * Full Code Date Activated Date Inactivated Comments 10/08/2021 6:40 PM 10/09/2021 6:54 PM * Full Code Date Activated Date Inactivated Comments 04/13/2021 8:38 PM 04/15/2021 9:43 PM * Full Code Date Activated Date Inactivated Comments 03/08/2021 12:34 PM 03/10/2021 11:12 PM Care Teams Director Sales Support Relationship Specialty Start Date End Date Naveen Lott MD [address] [address] PCP - General 12/02/16 Alexandre Godinez MD [address] [facility] [address] [address] Surgeon Neurosurgery 03/10/21 [place] [address] [facility] [address] [place] [address] Consulting Physician Neurology 03/10/21
--- OUTSIDE RECORDS SUMMARY | 2025-02-20 03:45 | XMS_ITS | CONTINUITY OF CARE DOCUMENT ---
Author Name arash antoine Address Unknown Organization [facility] Address [address] [place] [address] Phone [phone] Care Team Providers Care Pulp Maker Name Role Phone Luis THOMAS, Emmanuel Unavailable KASIA THOMAS, ALFONSO Unavailable APOLINAR THOMAS, NAZANIN Unavailable [phone] PROBLEMS Condition Status Date Provider Notes [...] Payer name Policy type / Coverage type [place] red republican ID UHC MEDICARE COMPLETE O Other [id number]
[2025-02-20 04:14] LABS: Fractional Inspired Oxygen 32 %; HCO3 VBG 26.4 mEq/l (24.0-30.0); PCO2 VBG 38.2 mmHg (42.0-48.0); PO2 VBG 46.8 mmHg (35.0-45.0)
[2025-02-20] MEDS: MAGNESIUM SULF 2 GM/WATER 50ML 2 GM/50 ML BAG IVPB (04:14)
[2025-02-20] MEDS: methylPREDNISolone SOD SUCC 40 MG VIAL IV PUSH ×3 (04:14→20:03)
[2025-02-20 04:17] LABS: Device NASAL CANNULA; pH VBG 7.458 (7.300-7.400)
[2025-02-20] MEDS: IPRATROPIUM BR 0.02% INH SOLN 0.5 MG/2.5 ML VIAL 1 MG INHALATION (04:26)
[2025-02-20] MEDS: ALBUTEROL SULFATE NEB 2.5 MG/3 ML INH 10 MG INHALATION (04:26)
--- NOTE | 2025-02-20 04:30 | PCRCNOTE ---
breathing TX done late due to another pt being intubated and taken to CT.
[2025-02-20 04:36] LABS: NT Pro B Type Natriuretic Pept 672 pg/mL (19.9-100)
[2025-02-20] MEDS: AZITHROMYCIN 500 MG/NS 250 ML 500 MG/250 ML BAG 250 MG IVPB (05:10)
--- NOTE | 2025-02-20 08:16 | ADMGEN ---
This patient, Enzo Pérez, was admitted to Medical Room 261-01. Patient/family oriented to hospital policies and general routines including ID bracelet, bed and alarms, visiting hours, pain management, procedures, bathroom and other care routines, personal items, smoking policy, room service/diet, and visiting hours. Information on how to activate the Rapid Response Team has been discussed. Patient/Family are encouraged to report perceived risks to care and to ask questions if they do not understand what they are told or what they should do.
[2025-02-20] MEDS: IPRATROPIUM 0.5 MG/ALBUTEROL SULFATE 2.5 MG AMPUL.NEB 3 ML INHALATION ×3 (09:12→20:46)
--- NOTE | 2025-02-20 10:17 | PM.IMHP ---
H&P: HPI History of Present Illness Date/Time: 02/20/25 10:17 Chief Complaint: Shortness of Narrative: 84-year-old male with the past medical history of coronary artery disease, renal artery stenosis, hypertension, hyperlipidemia, emphysema presented to the ED due to shortness of breath and cough. As per ED documentation the cough is nonproductive for several weeks and he was having worsening respiratory status despite multiple visits to ER and is a primary care provider. Patient do not follow-up with the subgrade roller operator or use nebulizer treatment or CPAP at home. Patient feels that his cough cough has been frequently you worsening and unable to catch his breath. Denies any association of chest pain or pleuritic chest pain or nausea or vomiting or headache. Pertinent ED labs: WBC 14, hemoglobin 10.9, hematocrit 36.3, platelet 481, sodium 142, potassium 3.5, chloride 106, creatinine 1.5 at baseline BNP 672 Chest x-ray on 02/20 shows a questionable minimal pleural effusion with mild bibasilar atelectatic changes. Underlying COPD Chest CTA was performed on 02/10/2025 which shows no evidence of pulmonary embolism, aortic dissection or aortic aneurysm. Evidence of moderate to advanced emphysema. Patient is admitted in the setting of shortness of breath possibly due to advanced emphysema. Record review indicates the patient has severe peripheral vascular disease and he had bilateral carotid enterectomy. Patient's follows up with time to time. Patient is a former smoker and smoked almost 57 years, 2 packs per day. Patient also follows up with Dr. Adams for CKD. Ordered echocardiogram. Will consult the pulmonology for further recommendation. Patient quit smoking 2006 and he was a previous smoking 2 packs per day. Patient reports that recently he was exposed to poison as gas due to paint spray/coating of crawl space at his home. He reports that housing authority reported that he might have been exposed to poisonous gas. Patient lives by himself and independent. Has a past medical history of stent placement but denies any stroke. Review of Systems Review of Systems: As reviewed above in HPI [facility] Past Medical History Medical History Renal artery stenosis Peripheral vascular disease Coronary artery disease Colorectal cancer Type 2 diabetes mellitus Hypertension Gastroesophageal reflux disease Chronic kidney disease, stage 3 Diabetic neuropathy Mixed hyperlipidemia Carotid artery stenosis Surgical History Surgical History History of right-sided carotid endarterectomy History of cholecystectomy History of cataract extraction History of coronary artery stent placement History of colon surgery Family History Family History Mother Family history of coronary artery disease Cerebrovascular accident Sibling Family history of coronary artery disease Other Hypertension Other Diabetes mellitus Father Diabetes mellitus Other Family history of cardiovascular disease Social History Social History Social History: Surrogate medical decision maker: Cassius Pérez, brother. Code status: Full code. Smoking packs per day: 2 Smoking cigarettes per day: 40.0 Years smoked: 53 Smoking pack-years: 106.00 Smoking status: Former smoker Tobacco type: cigarettes Second hand tobacco smoke exposure: Yes Alcohol intake: never Substance use: never Substance use type: does not use Do You Feel Safe in your Home?: Yes Lack of Transportation: No Lack of Food: Never True Current Housing: I Have Housing Concerned About Future Housing: No Difficulty Paying Gas/Electric Bills: No Difficulty Paying for Meds: No Currently Unemployed: No Education: High School Diploma/GED Difficulty w/ Childcare or Family Care: No Living arrangements: alone Additional living arrangements comments: Lives in [place]. . Has 1 son. 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 Gender identity (if verbalized by the patient): Male Spiritual care concerns: No Meds Home Medications and Allergies Home Medications ?Medication ?Instructions ?Recorded ?Confirmed ?Type aspirin 81 mg tablet,delayed 81 mg PO DAILY 10/16/19 02/20/25 History release (Adult Aspirin Regimen) blood-glucose meter (Accu-Chek #1 ea 09/14/20 02/17/25 Rx Jaimee Plus Meter) lancets (Accu-Chek Multiclix #200 ea 09/14/20 02/17/25 Rx Lancet) blood sugar diagnostic (Blood #100 ea 08/05/21 02/17/25 Rx Glucose Test strips) clonidine HCl 0.1 mg tablet 0.1 mg PO USEASDIRECTD 08/24/23 02/20/25 History gabapentin 100 mg capsule 100 mg PO TID Chronic Shingles 06/13/24 02/20/25 Rx neuropathy #270 caps pantoprazole 40 mg tablet,delayed See Rx Instructions .Route 08/09/24 02/20/25 Rx release .COMPLEX #180 tabs tamsulosin 0.4 mg capsule 0.4 mg PO DAILY #90 caps 08/13/24 02/20/25 Rx nifedipine 90 mg tablet,extended See Rx Instructions .Route 11/11/24 02/20/25 Rx release .COMPLEX #90 tabs chlorthalidone 25 mg tablet 25 mg PO DAILY #30 tabs 01/21/25 02/20/25 Rx lorazepam 0.5 mg tablet 0.5 mg PO BID PRN anxiety #45 tabs 02/06/25 02/20/25 Rx metformin 500 mg tablet,extended 500 mg PO DAILY #90 tabs 02/11/25 02/20/25 Rx release 24 hr atorvastatin 40 mg tablet See Rx Instructions .Route 02/12/25 02/20/25 Rx .COMPLEX #90 tabs irbesartan 300 mg tablet See Rx Instructions .Route 02/12/25 02/20/25 Rx .COMPLEX #90 tabs prednisone 10 mg tablet See Rx Instructions .Route 02/17/25 02/20/25 Rx .COMPLEX #18 tabs Allergies Allergy/AdvReac Type Severity Reaction Status Date / Time No Known Allergies Allergy Verified 02/20/25 08:40 Vital Signs Vital Signs - 24 hr 02/20/25 02:24 02/20/25 02:24 02/20/25 02:32 Temperature 97.8 F Pulse Rate 88 93 Respiratory Rate 24 H 24 H Blood Pressure 207/64 H 207/64 H Pulse Oximetry 95 90 Oxygen Delivery Room Air Room Air Oxygen Flow Rate 02/20/25 03:45 02/20/25 03:46 02/20/25 03:49 Temperature Pulse Rate 78 Respiratory Rate 24 H Blood Pressure 167/63 H Pulse Oximetry 83 L 93 90 Oxygen Delivery Room Air Nasal Cannula Oxygen Flow Rate 3 02/20/25 04:00 02/20/25 04:00 02/20/25 04:15 Temperature Pulse Rate 77 72 Respiratory Rate 22 H 23 H Blood Pressure 191/86 H 186/66 H Pulse Oximetry 98 93 94 Oxygen Delivery Nasal Cannula Oxygen Flow Rate 3 02/20/25 04:30 02/20/25 04:34 02/20/25 04:45 Temperature Pulse Rate 68 68 71 Respiratory Rate 16 20 21 H Blood Pressure 84/63 L 178/66 H Pulse Oximetry 95 99 Oxygen Delivery Oxygen Flow Rate 02/20/25 05:00 02/20/25 05:15 02/20/25 05:45 Temperature Pulse Rate 73 86 95 Respiratory Rate 17 25 H 23 H Blood Pressure 182/58 H 200/56 H 208/71 H Pulse Oximetry 100 100 100 Oxygen Delivery Oxygen Flow Rate 02/20/25 06:51 02/20/25 07:15 02/20/25 08:00 Temperature Pulse Rate 95 95 Respiratory Rate 21 H 19 Blood Pressure 193/61 H 168/56 H Pulse Oximetry 93 98 96 Oxygen Delivery Nasal Cannula Oxygen Flow Rate 3 02/20/25 08:02 02/20/25 09:10 02/20/25 09:12 Temperature Pulse Rate 80 97 Respiratory Rate 22 H 24 H Blood Pressure 168/72 H Pulse Oximetry 96 96 Oxygen Delivery Nasal Cannula Oxygen Flow Rate 3 Exam Narrative: GENERAL: Coughing frequently, not any acute physical distress, tachypneic HEAD: [Normocephalic, atraumatic.] EYES: [PERRLA and EOMI.] ENT: Nares clear, no rhinorrhea or epistaxis. Mucous membranes moist. NECK: Supple. CHEST: Coarse bilateral breath sounds with wheezing, decreased air entry, no accessory muscle use HEART: [Regular rate and rhythm]. No murmur heard. [Normal peripheral pulses.] ABDOMEN: [Soft, nondistended], [nontender], [No rigidity or guarding] EXTREMITIES: Normal range of motion. [No edema.] SKIN: Warm, dry, no rash. NEURO: [No focal deficits]. Alert and oriented [x3.] PSYCH: [Normal mood and affect.] H&P: Results Labs Labs: Short CBC 02/20/25 Range/Units 02:33 WBC 14.0 H (4.5-10.0) K/mm3 Hgb 10.9 L (14.0-18.0) g/dL Hct 36.3 L (42.0-52.0) % Plt Count 481 H D (150-375) k/mm3 [facility] 02/20/25 02:33 Sodium 142 Potassium 3.5 Chloride 106 Carbon Dioxide 26 BUN 32 H Creatinine 1.50 H Glucose 134 H Calcium 9.4 Liver Function 02/20/25 Range/Units 02:33 Total Bilirubin 0.5 (0.2-1.3) mg/dL AST 26 (17-59) U/L ALT 30 (6-50) U/L Alkaline Phosphatase 91 (38-126) U/L Albumin 3.8 (3.5-5.1) g/dL Assessment and Plan Assessment and plan (1) Acute exacerbation of emphysema: Code(s): J44.1 - Chronic obstructive pulmonary disease with (acute) exacerbation; J43.9 - Emphysema, unspecified Status: Acute Assessment and Plan: Reviewed ABG Currently on 3 L nasal cannula with no respiratory distress CT chest pending Chest x-ray shows: Questionable minimal pleural effusions with mild bibasilar atelectatic change.Underlying COPD. Quad screen negative Continue bronchodilators Comorbid condition possible CHF, LOPEZ Monitor vitals Monitor culture Will consider Pulmonology consult Started on ceftriaxone and doxycycline (2) Chronic kidney disease, stage 3a: Code(s): N18.31 - Chronic kidney disease, stage 3a Status: Acute Assessment and Plan: -monitor closely during diuresis -Avoid nephrotoxic drugs. -Monitor antihypertensive drug therapy. -Avoid NSAIDs. -Routine CMP monitoring GFR. -Monitor electrolytes especially potassium. -Antibiotic doses depending on creatinine clearance. -Pharmacy does medications. -Cr stable 1.5 appears at baseline -Routine follow-up with Dr. Adams as an outpatient. (3) Type 2 diabetes mellitus with other diabetic kidney complication: Code(s): E11.29 - Type 2 diabetes mellitus with other diabetic kidney complication Status: Chronic Assessment and Plan: Started on low-dose sliding scale Hypoglycemia protocol Will titrate insulin as needed (4) LOPEZ (obstructive sleep apnea): Code(s): G47.33 - Obstructive sleep apnea (adult) (pediatric) Status: Chronic Assessment and Plan: Ordered apnea study (5) Leg swelling: Code(s): M79.89 - Other specified soft tissue disorders Status: Acute Assessment and Plan: Ordered echo Elevated BNP Started Lasix 40 mg IV q.d. Will continue to monitor closely Input and output Echocardiogram pending Plan DVT prophylaxis: Lovenox 40 mg subcutaneous daily Core status: Full code Hospitalist [facility] Advance Care Plan I have confirmed that the patient's Advanced Care Plan is present, code status is documented, or surrogate decision maker is listed in patient medical record.: Yes Medication Reconciliation I have utilized all available resources to obtain, update and review the patients current medications (includes all prescriptions, OTC, herbals, cannabis, and nutritional supplements).: Yes
[2025-02-20] MEDS: PANTOPRAZOLE 40 MG TABLET PO ×2 (11:41→20:02)
[2025-02-20] MEDS: IRBESARTAN 150 MG TABLET 300 MG PO (11:42)
[2025-02-20] MEDS: LORazepam (*CRX) 0.5 MG TABLET PO (11:43)
[2025-02-20] MEDS: ATORVASTATIN 40 MG TABLET PO (11:43)
[2025-02-20] MEDS: NIFEdipine 30 MG TAB.ER.24 90 MG PO (11:47)
[2025-02-20] MEDS: GABAPENTIN 100 MG CAPSULE PO ×2 (13:09→16:16)
[2025-02-20] MEDS: FUROSEMIDE INJ 40 MG/4 ML VIAL IV PUSH (13:09)
[2025-02-20] MEDS: cloNIDine HCL 0.1 MG TABLET PO (16:16)
[2025-02-20] MEDS: DOXYCYCLINE 100 MG/NS 100 ML 100 MG/100 ML BAG IVPB (16:51)
[2025-02-20 17:01] LABS: Glucose Point of Care 134 mg/dl (65-105)
[2025-02-20] MEDS: TAMSULOSIN HCL 0.4 MG CAPSULE PO (21:21)
[2025-02-20] MEDS: INSULIN ASPART (*BKC) 100 UNITS/ML SUB-Q (21:58)
[2025-02-20 22:15] LABS: Glucose Point of Care 208 mg/dl (65-105)
[2025-02-21] VITALS (17 sets, daily range): BP systolic 150–198; BP diastolic 60–88; PULSE 80–112; RESP 18; TEMP 36.3–36.6; O2SAT 87–97
[2025-02-21] MEDS: DOXYCYCLINE 100 MG/NS 100 ML 100 MG/100 ML BAG IVPB ×2 (00:54→13:56)
[2025-02-21] MEDS: methylPREDNISolone SOD SUCC 40 MG VIAL IV PUSH ×2 (00:55→09:29)
[2025-02-21] MEDS: IPRATROPIUM 0.5 MG/ALBUTEROL SULFATE 2.5 MG AMPUL.NEB 3 ML INHALATION ×2 (01:25→08:37)
[2025-02-21 05:39] LABS: Hematocrit 42.6 % (42.0-52.0); Hemoglobin 12.6 g/dL (14.0-18.0); Mean Corpuscular HGB Conc 29.6 g/dl (32-36); Mean Corpuscular Hemoglobin 22.2 pg (26-34); Platelet Count Result 526 k/mm3 (150-375); Red Blood Count 5.68 M/mm3 (4.6-6.20); Red Cell Distribution Width 20.5 % (11.5-14.5)
[2025-02-21 05:52] LABS: Alanine Aminotransferase 31 U/L (6-50); Alkaline Phosphatase 80 U/L (38-126); Anion Gap 13 mmol/L (4-12); Aspartate Amino Transferase 31 U/L (17-59); Bilirubin,Total 0.7 mg/dL (0.2-1.3); Blood Urea Nitrogen 25 mg/dL (9-20); Calcium 9.8 mg/dL (8.4-10.2); Carbon Dioxide 28 mmol/L (22-30); Chloride 100 mmol/L (98-107); Estimated CRCL calculation 37 ml/min; Estimated Glomerular Filt Rate 50; Glucose 176 mg/dL (65-110); Potassium 3.9 mmol/L (3.4-5.0); Sodium 141 mmol/L (137-145); Total Protein 7.3 g/dL (6.3-8.2)
[2025-02-21] MEDS: hydrALAZINE HCL 20 MG/ML VIAL 10 MG IV PUSH (06:25)
[2025-02-21 06:46] LABS: NT Pro B Type Natriuretic Pept 2540 pg/mL (19.9-100)
--- NOTE | 2025-02-21 07:13 | P.PNIM_ITS ---
Progress Note: A&P Assessment and Plan (1) Acute exacerbation of emphysema: Code(s): J44.1 - Chronic obstructive pulmonary disease with (acute) exacerbation; J43.9 - Emphysema, unspecified Status: Acute Assessment and Plan: * Reviewed ABG * Currently on 3 L nasal cannula with no respiratory distress * Chest x-ray shows: Questionable minimal pleural effusions with mild bibasilar atelectatic change.Underlying COPD. * Chest CT: * Findings suggesting prior granulomatous disease. Panlobular emphysematous disease. * Interval development of bibasilar centrilobular nodularity with associated groundglass and part solid opacification, left greater than right. * No air bronchograms are identified within this opacification to suggest the presence of an infiltrate. No PE * Viral panel negative * Continue bronchodilators * Comorbid condition possible CHF, LOPEZ * Monitor vitals * Monitor culture * Started on ceftriaxone and doxycycline * Pulmonology consult, pending recommendations (2) Chronic kidney disease, stage 3a: Code(s): N18.31 - Chronic kidney disease, stage 3a Status: Acute Assessment and Plan: -monitor closely during diuresis -Avoid nephrotoxic drugs. -Monitor antihypertensive drug therapy. -Avoid NSAIDs. -Routine CMP monitoring GFR. -Monitor electrolytes especially potassium. -Antibiotic doses depending on creatinine clearance. -Pharmacy does medications. -Cr stable 1.5 appears at baseline -Routine follow-up with Dr. Adams as an outpatient. (3) Pneumonia: Code(s): J18.9 - Pneumonia, unspecified organism Status: Acute Assessment and Plan: CXR: Questionable minimal pleural effusions with mild bibasilar atelectatic change. Chest CT: * Findings suggesting prior granulomatous disease. Panlobular emphysematous disease. * Interval development of bibasilar centrilobular nodularity with associated groundglass and part solid opacification, left greater than right. * No air bronchograms are identified within this opacification to suggest the presence of an infiltrate. * No pleural effusions. * Underlying COPD. - started on CAP tx: Doxy & ceftriaxone - Viral PCR: negative for Flu/COVID/RSV - Legionella, mycoplasma and pneumococcal pending - no supplemental O2 requirement - supportive treatment - Monitor vital signs, I&Os, neuro status and patient is a fall risk - Follow WBC, serum electrolytes, temperature curves and cultures (4) Type 2 diabetes mellitus with other diabetic kidney complication: Code(s): E11.29 - Type 2 diabetes mellitus with other diabetic kidney complication Status: Chronic Assessment and Plan: * Started on low-dose sliding scale * Hypoglycemia protocol * Will titrate insulin as needed (5) LOPEZ (obstructive sleep apnea): Code(s): G47.33 - Obstructive sleep apnea (adult) (pediatric) Status: Chronic Assessment and Plan: * Ordered apnea study (6) Leg swelling: Code(s): M79.89 - Other specified soft tissue disorders Status: Acute Assessment and Plan: * In ED, BNP 672 * Started Lasix 40 mg IV q.d. * Will continue to monitor closely, I&Os * Echocardiogram * EF 65-70%, normal dimension * G1DD * 02/21, BNP 2540 * No evidence of fluid overload on exam * Continue daily Lasix Plan DVT prophylaxis: Lovenox 40 mg subcutaneous daily Core status: Full code Subjective Date/time seen: 02/21/25 07:13 Interval history: 84-year-old male with the past medical history of coronary artery disease, renal artery stenosis, hypertension, hyperlipidemia, emphysema presented to the ED due to shortness of breath and cough. 02/21/2025 Patient sitting comfortably in bed at time of examination. Pulmonology closely following, agreed that symptoms likely attributed to underlying pneumonia infection, less likely COPD exacerbation. Viral panel negative, recommends continuing ceftriaxone and doxycycline. Urine Legionella, pneumococcal antigen and serum mycoplasma IgG am still pending at this time. Patient is currently on room air and not in any respiratory distress. He denies any shortness of breath, chest pain, nausea/vomiting or abdominal pain at this time. Nursing staff alerted provider that heart rate was in the 130s. An EKG was obtained which showed sinus tachycardia with no AFib. Heart rates eventually decreased to 99, will closely monitor. Review of Systems Review of Systems: As reviewed above in HPI Exam Narrative: GENERAL: Coughing frequently, not any acute physical distress, tachypneic HEAD: [Normocephalic, atraumatic.] EYES: [PERRLA and EOMI.] ENT: Nares clear, no rhinorrhea or epistaxis. Mucous membranes moist. NECK: Supple. CHEST: Coarse bilateral breath sounds with wheezing, decreased air entry, no accessory muscle use HEART: [Regular rate and rhythm]. No murmur heard. [Normal peripheral pulses.] ABDOMEN: [Soft, nondistended], [nontender], [No rigidity or guarding] EXTREMITIES: Normal range of motion. [No edema.] SKIN: Warm, dry, no rash. NEURO: [No focal deficits]. Alert and oriented [x3.] PSYCH: [Normal mood and affect.] Objective Data Vital Signs Vital Signs: Vital Signs - 24 hr 02/20/25 07:15 02/20/25 08:00 02/20/25 08:02 Temperature Pulse Rate 95 80 Respiratory Rate 19 22 H Blood Pressure 168/56 H 168/72 H Pulse Oximetry 98 96 96 Oxygen Delivery Nasal Cannula Oxygen Flow Rate 3 Fraction of Inspired Oxygen 02/20/25 09:10 02/20/25 09:12 02/20/25 12:00 Temperature Pulse Rate 97 94 Respiratory Rate 24 H Blood Pressure Pulse Oximetry 96 Oxygen Delivery Nasal Cannula Oxygen Flow Rate 3 Fraction of Inspired Oxygen 02/20/25 14:00 02/20/25 15:19 02/20/25 16:00 Temperature 97.6 F Pulse Rate 88 96 100 Respiratory Rate 18 24 H Blood Pressure 187/62 H Pulse Oximetry 96 Oxygen Delivery Oxygen Flow Rate Fraction of Inspired Oxygen 02/20/25 20:00 02/20/25 20:00 02/20/25 20:47 Temperature Pulse Rate 102 H 77 Respiratory Rate 20 Blood Pressure Pulse Oximetry 90 Oxygen Delivery Nasal Cannula Oxygen Flow Rate 3 Fraction of Inspired Oxygen 02/20/25 20:49 02/20/25 22:00 02/21/25 00:00 Temperature 97.5 F L Pulse Rate 71 84 80 Respiratory Rate 20 18 Blood Pressure 166/59 H Pulse Oximetry 93 90 Oxygen Delivery Nasal Cannula Oxygen Flow Rate 3 Fraction of Inspired Oxygen 32 02/21/25 04:00 02/21/25 05:45 02/21/25 05:50 Temperature 98 F Pulse Rate 86 96 Respiratory Rate 18 Blood Pressure 198/64 H 190/70 H Pulse Oximetry 95 Oxygen Delivery Oxygen Flow Rate Fraction of Inspired Oxygen Intake/Output Intake/Output: Intake & Output 02/18/25 02/19/25 02/20/25 02/21/25 23:59 23:59 23:59 23:59 Intake Total 1120 900 Output Total 2024 2299 Balance -905 -1400 Meds/Results Medications: Active Medications Generic Name Dose Route Start Last Admin Trade Name Freq PRN Reason Stop Dose Admin Acetaminophen 650 mg 02/20/25 06:42 Acetaminophen 325 Mg Tablet PO Q4H PRN Mild Pain (1-3) or Fever Albuterol/Ipratropium 3 ml 02/20/25 20:00 02/21/25 01:25 Ipratropium 0.5 Mg/Albuterol Sulfate 2.5 Mg Ampul.Neb 3 Ml INHALATION 3 ml Q6HRT CH[facility]O Administration Aspirin 81 mg 02/21/25 09:00 Aspirin 81 Mg Enteric Tablet PO DAILY CH[facility]O Atorvastatin Calcium 40 mg 02/20/25 10:30 02/20/25 11:43 Atorvastatin 40 Mg Tablet PO 40 mg DAILY CH[facility]ARRO Administration Chlorthalidone 25 mg 02/21/25 09:00 Chlorthalidone 25 Mg Tablet PO DAILY [facility]O Clonidine HCl 0.2 mg 02/20/25 21:00 02/20/25 20:02 Clonidine Hcl 0.2 Mg Tablet PO 0.2 mg Q12HR [facility]ARRO Administration Clonidine HCl 0.1 mg 02/20/25 15:00 02/20/25 16:16 Clonidine Hcl 0.1 Mg Tablet PO 0.1 mg DAILY@1500 [facility]O Administration Dextrose 12.5 gm 02/20/25 16:32 Dextrose 50% 25 Gm/50 Ml Syringe IV PUSH PRN PRN Hypoglycemia Protocol Enoxaparin Sodium 40 mg 02/21/25 09:00 Enoxaparin 40 Mg/0.4 Ml Syringe SUB-Q DAILY [facility]O Furosemide 40 mg 02/20/25 12:40 02/20/25 13:09 Furosemide Inj 40 Mg/4 Ml Vial IV PUSH 40 mg DAILY [facility]O Administration Gabapentin 100 mg 02/20/25 13:00 02/20/25 16:16 Gabapentin 100 Mg Capsule PO 100 mg TID [facility]O Administration Glucagon 1 mg 02/20/25 16:32 Glucagon For Inj 1 Mg Vial IM PRN PRN Hypoglycemia Protocol Glucose 15 gm 02/20/25 16:32 Glucose Oral Gel 15 Gm Of Glucse In 37.5 Gm Tube PO PRN PRN Hypoglycemia Protocol Hydralazine HCl 10 mg 02/21/25 06:05 02/21/25 06:25 Hydralazine Hcl 20 Mg/Ml Vial IV PUSH 10 mg Q4H PRN Administration Blood Pressure - High Ceftriaxone Sodium 1 gm in 50 mls @ 100 mls/hr 02/20/25 14:00 02/20/25 16:15 Rocephin 1 Gm/Ns 50 Ml IVPB 100 mls/hr Q24H [facility]O Administration Doxycycline Hyclate 100 mg in 100 mls @ 100 mls/hr 02/20/25 14:00 02/21/25 00:54 Vibramycin 100 Mg/Ns 100 Ml IVPB 100 mls/hr Q12H [facility] Administration Dextrose 1,000 mls @ 100 mls/hr 02/20/25 16:32 Dextrose 5% 1,000 Ml IVPB PRN PRN Hypoglycemia Protocol Insulin Aspart 2 - 5 units 02/20/25 17:00 02/20/25 16:55 Insulin Aspart (*Bkc) 100 Units/Ml SUB-Q Not Given TIDWM [facility]O Protocol Insulin Aspart 1 - 2 units 02/20/25 21:00 02/20/25 21:58 Insulin Aspart (*Bkc) 100 Units/Ml SUB-Q 1 units HS CH[facility]O Administration Protocol Irbesartan 300 mg 02/20/25 10:30 02/20/25 11:42 Irbesartan 150 Mg Tablet PO 300 mg DAILY [facility] Administration Lorazepam 0.5 mg 02/20/25 10:26 02/20/25 11:43 Lorazepam (*Crx) 0.5 Mg Tablet PO 0.5 mg BID PRN Administration anxiety Methylprednisolone Sodium Succinate 40 mg 02/20/25 13:55 02/21/25 00:55 Methylprednisolone Sod Succ 40 Mg Vial IV PUSH 40 mg Q6H [facility] Administration Nifedipine 90 mg 02/20/25 10:30 02/20/25 11:47 Nifedipine 30 Mg Tab.Er.24 PO 90 mg DAILY [facility]O Administration Pantoprazole Sodium 40 mg 02/20/25 10:30 02/20/25 20:02 Pantoprazole 40 Mg Tablet PO 40 mg Q12HR [facility] Administration Perflutren Lipid Microsphere 0 ml 02/20/25 12:19 Perflutren Lipid Microspheres 1.5 Ml Vial Diluted To 10 Ml Total Volume IV PUSH 02/23/25 12:19 ONCE PRN adequate visualization Protocol Tamsulosin HCl 0.4 mg 02/21/25 09:00 Tamsulosin Hcl 0.4 Mg Capsule PO DAILY [facility] Radiology Results: ITS Impressions Chest X-Ray 02/20/25 05:50 Impression: Questionable minimal pleural effusions with mild bibasilar atelectatic change. Underlying COPD. Chest CT 02/20/25 17:51 IMPRESSION: Findings suggesting prior granulomatous disease. Panlobular emphysematous disease. Interval development of bibasilar centrilobular nodularity with associated groundglass and part solid opacification, left greater than right. No air bronchograms are identified within this opacification to suggest the presence of an infiltrate. No pleural effusions. Labs Labs: Laboratory Results - last 24 hr 02/20/25 02/20/25 02/21/25 16:54 21:51 04:40 WBC 12.0 H RBC 5.68 Hgb 12.6 L Hct 42.6 MCV 75.0 L MCH 22.2 L MCHC 29.6 L RDW 20.5 H Plt Count 526 H MPV 10.0 Sodium 141 Potassium 3.9 Chloride 100 Carbon Dioxide 28 Anion Gap 13 H BUN 25 H Creatinine 1.37 H Estim Creat Clear Calc 37 Estimated GFR 50 L Glucose 176 H POC Capillary Glucose 134 H 208 H Calcium 9.8 Total Bilirubin 0.7 AST 31 ALT 31 Alkaline Phosphatase 80 NT-Pro-B Natriuret Pep 2540 H Total Protein 7.3 Albumin 4.0 Quality VTE Prophylaxis VTE prophylaxis: pharmacologic ordered
[2025-02-21 08:25] LABS: Glucose Point of Care 195 mg/dl (65-105)
[2025-02-21] MEDS: NIFEdipine 30 MG TAB.ER.24 90 MG PO (09:19)
[2025-02-21] MEDS: ASPIRIN 81 MG ENTERIC TABLET PO (09:19)
[2025-02-21] MEDS: ENOXAPARIN 40 MG/0.4 ML SYRINGE SUB-Q (09:19)
[2025-02-21] MEDS: IRBESARTAN 150 MG TABLET 300 MG PO (09:19)
[2025-02-21] MEDS: cloNIDine HCL 0.2 MG TABLET PO ×2 (09:20→20:08)
[2025-02-21] MEDS: PANTOPRAZOLE 40 MG TABLET PO ×2 (09:20→20:08)
[2025-02-21] MEDS: TAMSULOSIN HCL 0.4 MG CAPSULE PO (09:20)
[2025-02-21] MEDS: GABAPENTIN 100 MG CAPSULE PO ×3 (09:20→18:15)
[2025-02-21] MEDS: CHLORTHALIDONE 25 MG TABLET PO (09:20)
[2025-02-21] MEDS: FUROSEMIDE INJ 40 MG/4 ML VIAL IV PUSH (09:20)
[2025-02-21] MEDS: ATORVASTATIN 40 MG TABLET PO (09:20)
--- NOTE | 2025-02-21 10:12 | ECG_ITS ---
Test Date: 2025-02-21 10:22:05 Measurements Intervals [place] Rate: 118 P: 82 SC: 178 QRS: -59 QRSD: 105 T: 91 QT: 315 QTc: 442 Interpretive Statements SINUS TACHYCARDIA LEFT ANTERIOR FASCICULAR BLOCK LEFT VENTRICULAR HYPERTROPHY AND ST-T CHANGE CANNOT R/O SEPTAL INFARCT, AGE INDETERMINATE BASELINE ARTIFACT- I, II, AVR, AVL, V1-V3 ABNORMAL ECG Compared to ECG 02/20/2025 02:33:00 HEART RATE HAS INCREASED Electronically Signed On 02-21-2025 10:42:25 CDT by Eduardo Haywood D.O.
--- NOTE | 2025-02-21 10:39 | P.CONPL_ITS ---
Assessment and Plan Assessment and plan (1) Pneumonia: Code(s): J18.9 - Pneumonia, unspecified organism Status: Acute Assessment and Plan: Patient has had continued worsening cough without dyspnea on exertion since then. He presents on 02/20/2025 with cough, shortness of breath, wheezes and a CT scan that shows new left lower lobe consolidation and right lower lobe nodular infiltrate since 02/10/2025. 02/21/2025: Plan: Patient currently afebrile. Leukocytosis has improved to 12. Procalcitonin is 0.1. Continue ceftriaxone and doxycycline, both started on 02/20/2025, day 2. I will send a COVID, influenza, RSV RT PCR assay. Respiratory pathogen panel, urine Legionella, urine pneumococcal antigen and serum mycoplasma IgM are pending. Goal saturation 90-94%. Currently is on room air. Discussed with Dr. Helton, will follow with you. (2) Impaired respiratory function due to exposure to chemical: Code(s): J68.9 - Unspecified respiratory condition due to chemicals, gases, fumes and vapors Status: Acute Assessment and Plan: The patient had his house crawls space sealed With a poly foam by the [facility] department in the fall of 2023. He had no respiratory issues until once the weather heated up this spring and he developed a dry cough which was worsened when he is in his house and is resolved when he leaves his house. On 02/07/2025 the [facility] housing department applied a 2nd coat and he sought medical attention for dry cough, shortness of breath and congestion on 02/10/2025. He again improved when he left the house. His brother drove him home and was in the house for 30 minutes and developed burning eyes and tearing eyes which resolved 10 minutes after he left the house. Patient has had continued worsening cough without dyspnea on exertion since then. He presents on 02/20/2025 with cough, shortness of breath, wheezes and a CT scan that shows new left lower lobe consolidation and right lower lobe nodular infiltrate since 02/10/2025. 02/21/25: Currently the patient states that his cough is gone, he has no shortness of breath at rest or with walking to the bathroom. When I enter the room he was on 3 L nasal cannula saturations 95%. I decreased him to room air and after 21 minutes his saturations were 93%. patient is afebrile. White blood cell count 14.0, creatinine 1.50, BNP 2540, procalcitonin 0.1. Plan: On 02/19/2025 the [facility] department came and placed vents in his crawl space to vent the air to the outside. They are supposed to return on 02/21/2025 to make these vents larger. His son who I spoke with his at the house and I have told the son to go into the house to see if he has any development of new symptoms. I talked to the son for 5 minutes while he was in the house and he had developed no symptoms and I told the son if he develops the slightest of symptoms including watering eyes, itchy eyes, burning nose, chemical taste in the mouth, shortness of breath, cough, wheezing that he should leave the house immediately and document how long he was in the house until he develops symptoms. currently the patient is not wheezing and I will discontinue systemic steroids. Patient is tachycardic and I will discontinue albuterol and continue ipratropium. (3) COPD (chronic obstructive pulmonary disease): Code(s): J44.9 - Chronic obstructive pulmonary disease, unspecified Status: Acute Assessment and Plan: GOLD grade 2 group B COPD Regarding his COPD, the patient has a history of tobacco use from 1955 to 2006 at 2 packs per day for a total of 104 pack years, he was exposed to secondhand smoke from his until 2013, he has no other occupational exposures. PFTs from 12/23/2021 with a moderate obstructive abnormality been FEV1 of 1.60 L, 65% predicted, ratio 50%, positive bronchodilator response, normal lung volumes and a mildly decreased DLCO that remains mildly decreased when adjusted for alveolar volume. For CT scan in our system from 10/19/2008 shows mild apical predominant centrilobular emphysema. CT scan of the chest on 06/01/2017 with mild to moderate apical predominant centrilobular emphysema and CT scan of the chest on 02/10/2025 and 02/20/2025 shows moderate apical predominant centrilobular emphysema. 3 years ago the patient tells me he could walk 5 miles. One year ago the patient tells me he can walk 3 miles and he gets tired but does not complain of dyspnea on exertion. Three weeks ago the patient tells me he could walk to miles and has no breathing limitations but would get tired. Chronically he denies cough, phlegm or hemoptysis. White blood cell count 9.4, eosinophils 3.6% equal 338 per micro L 02/21/2025: I am not convinced the patient is having an active COPD it exacerbation at this time. It sounds more like a combination of chemical exposure and/or pneumonia. Plan: I will discontinue systemic steroids at this time. Patient has sinus tachycardia at this time and I will discontinue his albuterol. I will place him on ipratropium nebulizers q.6 hours. Treat for for pneumonia as above. (4) LOPEZ (obstructive sleep apnea): Code(s): G47.33 - Obstructive sleep apnea (adult) (pediatric) Status: Chronic Assessment and Plan: Regarding his obstructive sleep apnea, patient had a split night sleep study on 01/29/2008 with BMI of 31.1 and an [place] score of 10 with moderate sleep apnea with an AHI of 13.8. adequate titration to CPAP 14 with correction of respiratory events. Patient was set up with CPAP machine and wore full face mask for about a year and then the machine broke and it was expensive and he discontinue the use of this machine. 02/21/2025. The patient tells me he is not interested in wearing a CPAP machine at home. plan: I will perform overnight oximetry on room air after the patient has improved to assess nocturnal hypoxemia. History of Present Illness History of Present Illness Consult date: 02/21/25 Chief complaint: COPD/Emphysema Exacerbation Narrative: 02/21/2025: This is a new pulmonary consult for COPD exacerbation. 84-year-old with a history of COPD, untrated LOPEZ, diabetes with neuropathy, coronary artery disease status post stent x3, peripheral vascular disease with renal artery stenosis, hypertension, CKD, GERD, hyperlipidemia, history of TIA status post right endarterectomy and history of colon cancer. Regarding his COPD, The patient tells me he does not have COPD and has never been diagnosed with COPD. However, the patient has a history of tobacco use from 5685-7810 at 2 packs per day for a total of 104 pack years, he was exposed to secondhand smoke from his until 2013, he has no other occupational exposures. PFTs from 12/23/2021 with a moderate obstructive abnormality, positive bronchodilator response, normal lung volumes and a mildly decreased DLCO that remains mildly decreased when adjusted for alveolar volume. For CT scan in our system from 10/19/2008 shows mild apical predominant centrilobular emphysema. CT scan of the chest on 06/01/2017 with mild to moderate apical predominant centrilobular emphysema and CT scan of the chest on 02/10/2025 and 02/20/2025 shows moderate apical predominant centrilobular emphysema. 3 years ago the patient tells me he could walk 5 miles. One year ago the patient tells me he can walk 3 miles and he gets tired but does not complain of dyspnea on exertion. Three weeks ago the patient tells me he could walk to miles and has no breathing limitations but would get tired. Chronically he denies cough, phlegm or hemoptysis. Regarding his obstructive sleep apnea, patient had a split night sleep study on 01/29/2008 with BMI of 31.1 and an [place] score of 10 with moderate sleep apnea with an AHI of 13.8. adequate titration to CPAP 14 with correction of respiratory events. Patient was set up with CPAP machine and wore full face mask for about a year and then the machine broke and it was expensive and he discontinue the use of this machine. Last fall the medicine housing department sealed his crawl space with poly foam material. The patient had no respiratory issues throughout the winter or spring months. Patient was in his usual state of health with no respiratory limitations in his activities of daily living. When the weather started getting warm he noticed that he developed a dry cough while he was in the house that would clear when he left the house. He denied fever, chills, rigors, phlegm production or hemoptysis. The department then came to his house and put a 2nd coating of the poly foam into his crawl space on approximately . patient's coughing progressed and he went to the emergency department on 02/10/2025 with cough, nasal congestion, wheezing and yellow phlegm. He had also gained 15 lb of edema in the last month. His room air saturations were 91-92. White blood cell count 9.4, eosinophils 3.6% equal 338 per micro L. He had a CT angiogram of the chest that was negative for PE with no focal infiltrates. does not appear he was sent home on any medicines. Diagnosis bronchitis. His brother drove him home and they went in the house and after 30 minutes the brother noticed that his eyes begin to burn and he started to cry. He left the house and his brother told him later that after 10 minutes of leaving the house his eyes stopped burning. Patient had continued coughing without dyspnea on exertion, shortness of breath, phlegm production. He saw his PCP on 02/17 who stated he had been short of breath for 4 days, increase edema and a prednisone taper was prescribed. The patient took this prednisone taper but noticed no improvement. On 02/19/2025 the medicine department came out and opened up outside ventilation in to his crawl space. And the plan was for them to come back on 02/21/2025 to make the vents larger. 02/20/2025: Patient presented to the emergency room with cough, blood pressure 207/64, heart rate 88, room air saturations 95%, then placed on 3 L with saturation 93%. White blood cell count 14.0, creatinine 1.50, BNP 672, ABG on 3 L 7.48/38/47. Patient had a CT scan of the chest that showed moderate apical predominant centrilobular emphysema, new left lower lobe consolidation and right lower lobe nodular infiltrate compared to 02/10/2025. Patient was started on ceftriaxone, doxycycline, Solu-Medrol and DuoNebs. 02/21/25: Currently the patient states that his cough is gone, he has no shortness of breath at rest or with walking to the bathroom. When I enter the room he was on 3 L nasal cannula saturations 95%. I decreased him to room air and after 21 minutes his saturations were 93%. patient is afebrile. White blood cell count 14.0, creatinine 1.50, BNP 2540, procalcitonin 0.1. DATA: 02/20/25: CLINICAL INDICATION: Shortness of breath and worsening cough COMPARISON: 02/10/2025. Reference is also made to plain film evaluations of the chest performed 02/20/2025 and dating back to 08/23/2023. TECHNIQUE: Multiple contiguous axial images of the chest was performed without the administration of intravenous contrast. This CT examination was performed utilizing dose reduction techniques. DLP: 337 mGy-cm FINDINGS/OBSERVATIONS: LUNG: Panlobular emphysematous disease. Bibasilar centrilobular nodularity with associated part solid opacification, left greater than right. No significant pleural effusion. Trace bibasilar bronchiectasis, right greater than left. Calcified nodules within the bilateral lung bases suggesting prior granulomatous disease. HEART: The heart is of normal size, without pericardial effusion. Aortic and mitral valve calcifications. MEDIASTINUM: Calcified lymph nodes within the bilateral jossie and subcarinal lymph node station suggesting prior granulomatous disease. Limited evaluation of noncalcified lymph nodes secondary to the lack of intravenous contrast. SOFT TISSUES OF THE CHEST: Unremarkable. BONES OF THE CHEST: No acute fracture. No lytic or blastic lesions are identified. UPPER ABDOMEN: Small hiatal hernia. Fatty atrophy of the pancreas. Punctate calcifications identified within the splenic parenchyma, suggesting prior granulomatous disease. IMPRESSION: Findings suggesting prior granulomatous disease. Panlobular emphysematous disease. Interval development of bibasilar centrilobular nodularity with associated groundglass and part solid opacification, left greater than right. No air bronchograms are identified within this opacification to suggest the presence of an infiltrate. No pleural effusions. 02/20/2025: Summary 1. Complete two-dimensional, color flow and Doppler transthoracic echocardiogram is performed. 2. Left ventricular chamber dimension is normal. 3. Left ventricular systolic function is normal, estimated at 65-70. 4. The left ventricular diastolic function is grade I diastolic dysfunction. 5. E/e' 12 is mildly elevated. 6. The aortic valve is not well visualized. Cannot determine number of aortic valve leaflets. Right Ventricle Right ventricular chamber dimension is normal. Right ventricular systolic function is normal and with normal TAPSE 2.2 cm. Right Atria Right atrial chamber dimension is normal. Tricuspid Valve There is no tricuspid valve regurgitation. No RVSP calculated. 02/10/25:Clinical Indication: Shortness of breath CT Scan of the Chest with Contrast: Technique: Contiguous sections were acquired throughout the chest after intravenous administration of 100 cc of Omnipaque 350. Dose reduction technique was used on this scan by utilizing automated exposure control and iterative reconstruction technique. The dose-length product (DLP) was 645.88 mGy-cm. Findings: There is no evidence of any significant mediastinal, hilar or axillary lymphadenopathy. There is no filling defect in the pulmonary arterial tree to suggest pulmonary embolus. There is no evidence of aortic dissection or aneurysm. There is no evidence of pleural or pericardial effusion. Moderate to advanced emphysema noted. Calcified right basilar granulomas are present. Images through the upper abdomen reveal no abnormalities. Impression: No evidence of pulmonary embolus, aortic dissection, or aortic aneurysm. Moderate to advanced emphysema. 12/23/2021: This is a pulmonary function test with pre and post-bronchodilator spirometry, plethysmography and diffusing capacity. The test was performed and results interpreted in accordance with the 2019 and 2005 ATS/ERS Task Force guidelines respectively using the Global Lung Function Initiative-2012 reference equations. Patient demonstrated good effort and cooperation. Reproducibility criteria were met. The quality of the pre bronchodilator spirometry maneuver was Grade A and post bronchodilator spirometry maneuver was Grade A. Findings: Spirometry: There is decreased maximal expiratory airflow at all lung volumes with a concave expiratory flow tracing. The contour the inspiratory flow tracing is normal. The pre bronchodilator FVC is 3.23 L, 99% predicted. The pre bronchodilator FEV1 is 1.60 L, 65% predicted. The pre bronchodilator FEV1: FVC ratio is 50%. The post bronchodilator FVC is 3.62 L, representing a 12% increase. The post bronchodilator FEV1 is 1.76 L, representing a 10% increase. The post bronchodilator FEV1: FVC ratio is 49%. Plethysmography: The total lung capacity is 7.47 L, 124% predicted. The functional residual capacity is 2.87 L, 89% predicted. The residual volume is 2.77 L, 117% predicted. Diffusing capacity: The diffusing capacity unadjusted for hemoglobin and carboxyhemoglobin is 13.3, 61% predicted. The diffusing capacity adjusted for alveolar volume is 2.60, 66% predicted. Impression: There is a moderate obstructive abnormality. There is significant improvement after inhaling a single dose of albuterol. The lung volumes are normal. The diffusing capacity unadjusted for hemoglobin and carboxyhemoglobin is mildly decreased and remains mildly decreased when adjusted for alveolar volume. There are no prior studies for comparison 01/29/2008: split night sleep study DIAGNOSTIC IMPRESSION: Moderate obstructive sleep apnea with an AHI of 13.8 associated with significant oxygen desaturations and heavy snoring. Adequate titration to 14cm of water C-pap was noted with correction of respiratory events. Snoring was also significantly controlled at that level as well. REM was achieved. In all sleep architecture improved significantly with C-pap titration with all stages of sleep being represented. Would recommend C-pap 14cm of water with a large Quattro full face mask with a ramp time of 10 minutes and a heated humidifier for added comfort. Review of Systems 2 Constitutional: Constitutional: Reports no additional constitutional complaints Eyes: Eyes: Reports no additional eye complaints ENT: Reports system reviewed and no additional complaints, except as documented Cardiovascular: Cardiovascular: Reports no additional cardiovascular complaints Respiratory: Respiratory: Reports no additional respiratory complaints Gastrointestinal: Gastrointestinal: Reports no additional gastrointestinal complaints Musculoskeletal: Musculoskeletal: Reports no additional musculoskeletal complaints Neurologic: Reports system reviewed and no additional complaints, except as documented Psychiatric: Psychiatric: Reports no additional psychiatric complaints Endocrine: Endocrine: Reports no additional endocrine complaints Hematologic/Lymphatic: Hematologic/Lymphatic: Reports no additional hematologic/lymphatic complaints Allergic/Immunologic: Allergic/Immunologic: Reports no additional allergic/immunologic complaints FORMERLY [facility], 1928–1983 Past Medical History Medical History Renal artery stenosis Peripheral vascular disease Coronary artery disease Colorectal cancer Type 2 diabetes mellitus Hypertension Gastroesophageal reflux disease Chronic kidney disease, stage 3 Diabetic neuropathy Mixed hyperlipidemia Carotid artery stenosis Surgical History Surgical History History of right-sided carotid endarterectomy History of cholecystectomy History of cataract extraction History of coronary artery stent placement History of colon surgery Family History Family History Mother Family history of coronary artery disease Cerebrovascular accident Sibling Family history of coronary artery disease Other Hypertension Other Diabetes mellitus Father Diabetes mellitus Other Family history of cardiovascular disease Social History Social History Social History: Surrogate medical decision maker: Cassius Pérez, brother. Code status: Full code. Smoking packs per day: 2 Smoking cigarettes per day: 40.0 Years smoked: 53 Smoking pack-years: 106.00 Smoking status: Former smoker Tobacco type: cigarettes Second hand tobacco smoke exposure: Yes Alcohol intake: never Substance use: never Substance use type: does not use Do You Feel Safe in your Home?: Yes Lack of Transportation: No Lack of Food: Never True Current Housing: I Have Housing Concerned About Future Housing: No Difficulty Paying Gas/Electric Bills: No Difficulty Paying for Meds: No Currently Unemployed: No Education: High School Diploma/GED Difficulty w/ Childcare or Family Care: No Living arrangements: alone Additional living arrangements comments: Lives in [place]. . Has 1 son. 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 Gender identity (if verbalized by the patient): Male Spiritual care concerns: No Meds Home Medications and Allergies Home Medications ?Medication ?Instructions ?Recorded ?Confirmed ?Type aspirin 81 mg tablet,delayed 81 mg PO DAILY 10/16/19 02/20/25 History release (Adult Aspirin Regimen) blood-glucose meter (Accu-Chek #1 ea 09/14/20 02/21/25 Rx Jaimee Plus Meter) lancets (Accu-Chek Multiclix #200 ea 09/14/20 02/21/25 Rx Lancet) blood sugar diagnostic (Blood #100 ea 08/05/21 02/21/25 Rx Glucose Test strips) clonidine HCl 0.1 mg tablet 0.1 mg PO USEASDIRECTD 08/24/23 02/20/25 History gabapentin 100 mg capsule 100 mg PO TID Chronic Shingles 06/13/24 02/20/25 Rx neuropathy #270 caps pantoprazole 40 mg tablet,delayed See Rx Instructions .Route 08/09/24 02/20/25 Rx release .COMPLEX #180 tabs tamsulosin 0.4 mg capsule 0.4 mg PO DAILY #90 caps 08/13/24 02/20/25 Rx nifedipine 90 mg tablet,extended See Rx Instructions .Route 11/11/24 02/20/25 Rx release .COMPLEX #90 tabs chlorthalidone 25 mg tablet 25 mg PO DAILY #30 tabs 01/21/25 02/20/25 Rx lorazepam 0.5 mg tablet 0.5 mg PO BID PRN anxiety #45 tabs 02/06/25 02/20/25 Rx metformin 500 mg tablet,extended 500 mg PO DAILY #90 tabs 02/11/25 02/20/25 Rx release 24 hr atorvastatin 40 mg tablet See Rx Instructions .Route 02/12/25 02/20/25 Rx .COMPLEX #90 tabs irbesartan 300 mg tablet See Rx Instructions .Route 02/12/25 02/20/25 Rx .COMPLEX #90 tabs prednisone 10 mg tablet See Rx Instructions .Route 02/17/25 02/20/25 Rx .COMPLEX #18 tabs Allergies Allergy/AdvReac Type Severity Reaction Status Date / Time No Known Allergies Allergy Verified 02/20/25 08:40 Vital Signs Vital Signs - 24 hr 02/20/25 12:00 02/20/25 14:00 02/20/25 15:19 Temperature 36.4 C Pulse Rate 94 88 96 Respiratory Rate 18 24 H Blood Pressure 187/62 H Pulse Oximetry 96 Oxygen Delivery Oxygen Flow Rate Fraction of Inspired Oxygen 02/20/25 16:00 02/20/25 20:00 02/20/25 20:00 Temperature Pulse Rate 100 102 H Respiratory Rate Blood Pressure Pulse Oximetry 90 Oxygen Delivery Nasal Cannula Oxygen Flow Rate 3 Fraction of Inspired Oxygen 02/20/25 20:47 02/20/25 20:49 02/20/25 22:00 Temperature 36.4 C L Pulse Rate 77 71 84 Respiratory Rate 20 20 18 Blood Pressure 166/59 H Pulse Oximetry 93 90 Oxygen Delivery Nasal Cannula Oxygen Flow Rate 3 Fraction of Inspired Oxygen 32 02/21/25 00:00 02/21/25 04:00 02/21/25 05:45 Temperature 36.6 C Pulse Rate 80 86 96 Respiratory Rate 18 Blood Pressure 198/64 H Pulse Oximetry 95 Oxygen Delivery Oxygen Flow Rate Fraction of Inspired Oxygen 02/21/25 05:50 02/21/25 08:38 02/21/25 08:38 Temperature Pulse Rate 106 H Respiratory Rate 18 Blood Pressure 190/70 H Pulse Oximetry 97 Oxygen Delivery Nasal Cannula Oxygen Flow Rate 3 Fraction of Inspired Oxygen 02/21/25 08:47 Temperature Pulse Rate 110 H Respiratory Rate 18 Blood Pressure Pulse Oximetry Oxygen Delivery Oxygen Flow Rate Fraction of Inspired Oxygen Exam 2 Const: General: cooperative, healthy appearing and comfortable O rientation/consciousness: oriented to person, oriented to place and oriented to time HENMT: Head: normal to inspection Ears: hearing grossly normal bilaterally Eyes: General: appearance normal, both eyes and all related structures Neck: Neck: normal visual inspection Chest: Chest palpation & inspection: normal inspection of the chest Resp: Effort & Inspection: normal respiratory effort and able to speak in complete sentences Auscultation: crackles, no rales, no rhonchi, no wheezes and lung sounds not diminished Other: Crackles both bases. Cardio: Jugular venous distension: no JVD GI: Inspection: normal to inspection GI Palp: No abdominal tenderness Skin: General skin exam: normal color Neuro: General: oriented to person, oriented to place and oriented to time Extrem: General: normal to inspection and no edema Psych: Appearance: grossly normal Results Laboratory Findings 02/21/25 04:40 02/21/25 04:40 Abnormal lab findings: Abnormal Labs 02/20/25 02/20/25 02/20/25 02:33 04:07 04:11 WBC 14.0 H Hgb 10.9 L Hct 36.3 L MCV 75.6 L MCH 22.7 L MCHC 30.0 L RDW 19.9 H Plt Count 481 H D Immature Gran % (Auto) 0.6 H Lymph # (Auto) 4.08 H [place] # (Auto) 0.9 H Abs Immat Gran (auto) 0.08 H Absolute Neuts (auto) 8.9 H VBG pH 7.458 H* VBG pCO2 38.2 L VBG pO2 46.8 H Anion Gap BUN 32 H Creatinine 1.50 H Estimated GFR 45 L Glucose 134 H POC Capillary Glucose NT-Pro-B Natriuret Pep 672 H 02/20/25 02/20/25 02/21/25 16:54 21:51 04:40 WBC 12.0 H Hgb 12.6 L Hct MCV 75.0 L MCH 22.2 L MCHC 29.6 L RDW 20.5 H Plt Count 526 H Immature Gran % (Auto) Lymph # (Auto) [place] # (Auto) Abs Immat Gran (auto) Absolute Neuts (auto) VBG pH VBG pCO2 VBG pO2 Anion Gap 13 H BUN 25 H Creatinine 1.37 H Estimated GFR 50 L Glucose 176 H POC Capillary Glucose 134 H 208 H NT-Pro-B Natriuret Pep 2540 H 02/21/25 08:06 WBC Hgb Hct MCV MCH MCHC RDW Plt Count Immature Gran % (Auto) Lymph # (Auto) [place] # (Auto) Abs Immat Gran (auto) Absolute Neuts (auto) VBG pH VBG pCO2 VBG pO2 Anion Gap BUN Creatinine Estimated GFR Glucose POC Capillary Glucose 195 H NT-Pro-B Natriuret Pep Diagnostic Findings Additional studies: ITS Impressions Chest X-Ray 02/20/25 05:50 Impression: Questionable minimal pleural effusions with mild bibasilar atelectatic change. Underlying COPD. Chest CT 02/20/25 17:51
[2025-02-21 10:42] LABS: Procalcitonin 0.1 ng/mL
[2025-02-21 12:22] LABS: Glucose Point of Care 183 mg/dl (65-105)
[2025-02-21 13:53] LABS: Influenza A QL RT-PCR Negative (Negative); Influenza B QL RT-PCR Negative (Negative); RSV RNA, RT-PCR Negative (Negative); SARS-CoV-2 RNA PCR Negative (Negative)
[2025-02-21] MEDS: IPRATROPIUM BR 0.02% INH SOLN 0.5 MG/2.5 ML VIAL INHALATION ×2 (14:12→19:50)
[2025-02-21] MEDS: cloNIDine HCL 0.1 MG TABLET PO (15:34)
[2025-02-21 17:33] LABS: Glucose Point of Care 182 mg/dl (65-105)
[2025-02-21] MEDS: guaiFENesin 12 HR 600 MG TABCR 1200 MG PO (20:08)
[2025-02-21 21:19] LABS: Glucose Point of Care 138 mg/dl (65-105)
[2025-02-22] VITALS (18 sets, daily range): BP systolic 130–176; BP diastolic 60–83; PULSE 80–116; RESP 16–22; TEMP 36.5–36.6; O2SAT 92–100
--- NOTE | 2025-02-22 00:47 | PC.NURSE ---
unable to obtain IV acsess after mx attempts. MD notified and aware. IV antibiotics switched to P.O per MD order.
[2025-02-22] MEDS: CEPHALEXIN 500 MG CAPSULE PO ×4 (01:05→22:46)
[2025-02-22] MEDS: IPRATROPIUM BR 0.02% INH SOLN 0.5 MG/2.5 ML VIAL INHALATION ×4 (01:53→20:32)
--- NOTE | 2025-02-22 07:36 | PM.IMPN ---
Progress Note: A&P Assessment and Plan (1) Pneumonia: Code(s): J18.9 - Pneumonia, unspecified organism Status: Acute Assessment and Plan: CXR: Questionable minimal pleural effusions with mild bibasilar atelectatic change. Chest CT: Findings suggesting prior granulomatous disease. Panlobular emphysematous disease. Interval development of bibasilar centrilobular nodularity with associated groundglass and part solid opacification, left greater than right. No air bronchograms are identified within this opacification to suggest the presence of an infiltrate. No pleural effusions. Underlying COPD. - started on CAP tx: Doxy & ceftriaxone - Viral PCR: negative for Flu/COVID/RSV - Legionella, mycoplasma and pneumococcal pending - no supplemental O2 requirement - supportive treatment - Monitor vital signs, I&Os, neuro status and patient is a fall risk - Follow WBC, serum electrolytes, temperature curves and cultures (2) Impaired respiratory function due to exposure to chemical: Code(s): J68.9 - Unspecified respiratory condition due to chemicals, gases, fumes and vapors Status: Acute Assessment and Plan: Exposure to new housing insulation installed last fall Steroids and albuterol d/c continue Ipratropium Physical exam reassuring Continue close monitoring (3) Acute exacerbation of emphysema: Code(s): J44.1 - Chronic obstructive pulmonary disease with (acute) exacerbation; J43.9 - Emphysema, unspecified Status: Acute Assessment and Plan: Reviewed ABG Currently on 3 L nasal cannula with no respiratory distress Chest x-ray shows: Questionable minimal pleural effusions with mild bibasilar atelectatic change.Underlying COPD. Chest CT: Findings suggesting prior granulomatous disease. Panlobular emphysematous disease. Interval development of bibasilar centrilobular nodularity with associated groundglass and part solid opacification, left greater than right. No air bronchograms are identified within this opacification to suggest the presence of an infiltrate. No PE Viral panel negative Monitor vitals/culture Started on ceftriaxone and doxycycline Pulmonology consult, pending recommendations Less likely COPD exacerbation, symptoms more likely 2/2 chemical exposure/pneumonia Steroids d/c Continue Duoneb q6h Physical exam benign, no wheezing (4) Chronic kidney disease, stage 3a: Code(s): N18.31 - Chronic kidney disease, stage 3a Status: Acute Assessment and Plan: -monitor closely during diuresis -Avoid nephrotoxic drugs. -Monitor antihypertensive drug therapy. -Avoid NSAIDs. -Routine CMP monitoring GFR. -Monitor electrolytes especially potassium. -Antibiotic doses depending on creatinine clearance. -Pharmacy does medications. -Cr stable 1.5 appears at baseline -Routine follow-up with Dr. Adams as an outpatient. -02/22, Cr 1.57, GFR 43 ( baseline appear to be around 1.3-1.6 for Cr and 24-49 for GFR) (5) Type 2 diabetes mellitus with other diabetic kidney complication: Code(s): E11.29 - Type 2 diabetes mellitus with other diabetic kidney complication Status: Chronic Assessment and Plan: Started on low-dose sliding scale Hypoglycemia protocol Will titrate insulin as needed (6) LOPEZ (obstructive sleep apnea): Code(s): G47.33 - Obstructive sleep apnea (adult) (pediatric) Status: Chronic Assessment and Plan: Ordered apnea study (7) Leg swelling: Code(s): M79.89 - Other specified soft tissue disorders Status: Acute Assessment and Plan: In ED, BNP 672 Started Lasix 40 mg IV q.d. Will continue to monitor closely, I&Os Echocardiogram EF 65-70%, normal dimension G1DD 02/21, BNP 2540 No evidence of fluid overload on exam Continue daily Lasix (8) Hypertensive heart disease without heart failure: Code(s): I11.9 - Hypertensive heart disease without heart failure Status: Chronic Assessment and Plan: BPs ranging 150s/60s to 190s/70s Also has been found to be intermittently tachycardic EKG shows sinus tachycardia, no arrhythmia Cardio consulted Tachycardic like 2/2 to underlying COPD/Pneumonia chronic HTN not ideal but consistent with outpt readings The addition of another b-irais would likely not be tolerated well Closely monitor sx Plan DVT prophylaxis: Lovenox 40 mg subcutaneous daily Core status: Full code Subjective Date/time seen: 02/22/25 07:36 Interval history: 84-year-old male with the past medical history of coronary artery disease, renal artery stenosis, hypertension, hyperlipidemia, emphysema presented to the ED due to shortness of breath and cough. 02/22/2025 Patient sitting comfortably in bed at time of examination. Cardiology consulted regarding unexplained tachycardia/medication management. They agree tachycardia likely secondary to underlying COPD/Pneumonia, in the addition of additional beta-irais therapy would be poorly tolerated given elevated blood pressure and current chronic regimen. Patient otherwise hemodynamically stable and has no complaints at this time. Denies any chest pain or shortness of breath. Will continue monitoring the weekend. Review of Systems Review of Systems: As reviewed above in HPI Exam Narrative: GENERAL: Coughing frequently, not any acute physical distress, tachypneic HEAD: [Normocephalic, atraumatic.] EYES: [PERRLA and EOMI.] ENT: Nares clear, no rhinorrhea or epistaxis. Mucous membranes moist. NECK: Supple. CHEST: Coarse bilateral breath sounds with wheezing, decreased air entry, no accessory muscle use HEART: [Regular rate and rhythm]. No murmur heard. [Normal peripheral pulses.] ABDOMEN: [Soft, nondistended], [nontender], [No rigidity or guarding] EXTREMITIES: Normal range of motion. [No edema.] SKIN: Warm, dry, no rash. NEURO: [No focal deficits]. Alert and oriented [x3.] PSYCH: [Normal mood and affect.] Objective Data Vital Signs Vital Signs: Vital Signs - 24 hr 02/21/25 08:00 02/21/25 08:38 02/21/25 08:38 Temperature Pulse Rate 105 H 106 H Respiratory Rate 18 Blood Pressure Pulse Oximetry 97 Oxygen Delivery Nasal Cannula Oxygen Flow Rate 3 02/21/25 08:47 02/21/25 09:20 02/21/25 12:00 Temperature Pulse Rate 110 H 101 H Respiratory Rate 18 Blood Pressure Pulse Oximetry 94 Oxygen Delivery Room Air Oxygen Flow Rate 02/21/25 13:46 02/21/25 14:12 02/21/25 16:00 Temperature 97.9 F Pulse Rate 112 H 99 101 H Respiratory Rate 18 18 Blood Pressure 161/88 H Pulse Oximetry 92 Oxygen Delivery Oxygen Flow Rate 02/21/25 19:34 02/21/25 19:51 02/21/25 19:53 Temperature 97.4 F L Pulse Rate 94 102 H Respiratory Rate 18 18 Blood Pressure 150/60 H Pulse Oximetry 87 L 93 Oxygen Delivery Room Air Oxygen Flow Rate 02/21/25 20:00 02/21/25 20:00 02/21/25 20:01 Temperature Pulse Rate 100 94 Respiratory Rate 18 Blood Pressure Pulse Oximetry Oxygen Delivery Room Air Oxygen Flow Rate 02/22/25 00:00 02/22/25 01:54 02/22/25 02:00 Temperature Pulse Rate 80 91 97 Respiratory Rate 18 18 Blood Pressure Pulse Oximetry Oxygen Delivery Oxygen Flow Rate 02/22/25 04:00 02/22/25 06:00 Temperature 98 F Pulse Rate 84 100 Respiratory Rate 22 H Blood Pressure 176/76 H Pulse Oximetry 92 Oxygen Delivery Oxygen Flow Rate Intake/Output Intake/Output: Intake & Output 02/19/25 02/20/25 02/21/25 02/22/25 23:59 23:59 23:59 23:59 Intake Total 1170 1720 350 Output Total 2024 3500 1100 Balance -855 -4080 -750 Meds/Results Medications: Active Medications Generic Name Dose Route Start Last Admin Trade Name Freq PRN Reason Stop Dose Admin Acetaminophen 650 mg 02/20/25 06:42 Acetaminophen 325 Mg Tablet PO Q4H PRN Mild Pain (1-3) or Fever Aspirin 81 mg 02/21/25 09:00 02/21/25 09:19 Aspirin 81 Mg Enteric Tablet PO 81 mg DAILY CHAPARRO Administration Atorvastatin Calcium 40 mg 02/20/25 10:30 02/21/25 09:20 Atorvastatin 40 Mg Tablet PO 40 mg DAILY CHAPARRO Administration Cephalexin HCl 500 mg 02/22/25 00:00 02/22/25 01:05 Cephalexin 500 Mg Capsule PO 500 mg Q8H CHAPARRO Administration Chlorthalidone 25 mg 02/21/25 09:00 02/21/25 09:20 Chlorthalidone 25 Mg Tablet PO 25 mg DAILY CHAPARRO Administration Clonidine HCl 0.2 mg 02/20/25 21:00 02/21/25 20:08 Clonidine Hcl 0.2 Mg Tablet PO 0.2 mg Q12HR CHAPARRO Administration Clonidine HCl 0.1 mg 02/20/25 15:00 02/21/25 15:34 Clonidine Hcl 0.1 Mg Tablet PO 0.1 mg DAILY@1500 CHAPARRO Administration Dextrose 12.5 gm 02/20/25 16:32 Dextrose 50% 25 Gm/50 Ml Syringe IV PUSH PRN PRN Hypoglycemia Protocol Doxycycline Hyclate 100 mg 02/22/25 10:00 Doxycycline Hyclate 100 Mg Tablet PO Q12H CHAPARRO Enoxaparin Sodium 40 mg 02/21/25 09:00 02/21/25 09:19 Enoxaparin 40 Mg/0.4 Ml Syringe SUB-Q 40 mg DAILY CHAPARRO Administration Furosemide 40 mg 02/20/25 12:40 02/21/25 09:20 Furosemide Inj 40 Mg/4 Ml Vial IV PUSH 40 mg DAILY CHAPARRO Administration Gabapentin 100 mg 02/20/25 13:00 02/21/25 18:15 Gabapentin 100 Mg Capsule PO 100 mg TID CHAPARRO Administration Glucagon 1 mg 02/20/25 16:32 Glucagon For Inj 1 Mg Vial IM PRN PRN Hypoglycemia Protocol Glucose 15 gm 02/20/25 16:32 Glucose Oral Gel 15 Gm Of Glucse In 37.5 Gm Tube PO PRN PRN Hypoglycemia Protocol Guaifenesin 1,200 mg 02/21/25 21:00 02/21/25 20:08 Guaifenesin 12 Hr 600 Mg Tabcr PO 1,200 mg Q12HR CHAPARRO Administration Hydralazine HCl 10 mg 02/21/25 06:05 02/21/25 06:25 Hydralazine Hcl 20 Mg/Ml Vial IV PUSH 10 mg Q4H PRN Administration Blood Pressure - High Dextrose 1,000 mls @ 100 mls/hr 02/20/25 16:32 Dextrose 5% 1,000 Ml IVPB PRN PRN Hypoglycemia Protocol Insulin Aspart 2 - 5 units 02/20/25 17:00 02/21/25 18:04 Insulin Aspart (*Bkc) 100 Units/Ml SUB-Q Not Given TIDWM [facility] Protocol Insulin Aspart 1 - 2 units 02/20/25 21:00 02/21/25 21:21 Insulin Aspart (*Bkc) 100 Units/Ml SUB-Q Not Given HS [facility] Protocol Ipratropium [place] 0.5 mg 02/21/25 14:00 02/22/25 01:53 Ipratropium Br 0.02% Inh Soln 0.5 Mg/2.5 Ml Vial INHALATION 0.5 mg Q6HRT CHAPARRO Administration Irbesartan 300 mg 02/20/25 10:30 02/21/25 09:19 Irbesartan 150 Mg Tablet PO 300 mg DAILY CHAPARRO Administration Lorazepam 0.5 mg 02/20/25 10:26 02/20/25 11:43 Lorazepam (*Crx) 0.5 Mg Tablet PO 0.5 mg BID PRN Administration anxiety Nifedipine 90 mg 02/20/25 10:30 02/21/25 09:19 Nifedipine 30 Mg Tab.Er.24 PO 90 mg DAILY CHAPARRO Administration Pantoprazole Sodium 40 mg 02/20/25 10:30 02/21/25 20:08 Pantoprazole 40 Mg Tablet PO 40 mg Q12HR CHAPARRO Administration Perflutren Lipid Microsphere 0 ml 02/20/25 12:19 Perflutren Lipid Microspheres 1.5 Ml Vial Diluted To 10 Ml Total Volume IV PUSH 02/23/25 12:19 ONCE PRN adequate visualization Protocol Tamsulosin HCl 0.4 mg 02/21/25 09:00 02/21/25 09:20 Tamsulosin Hcl 0.4 Mg Capsule PO 0.4 mg DAILY CHAPARRO Administration Radiology Results: ITS Impressions Chest X-Ray 02/20/25 05:50 Impression: Questionable minimal pleural effusions with mild bibasilar atelectatic change. Underlying COPD. Chest CT 02/20/25 17:51 IMPRESSION: Findings suggesting prior granulomatous disease. Panlobular emphysematous disease. Interval development of bibasilar centrilobular nodularity with associated groundglass and part solid opacification, left greater than right. No air bronchograms are identified within this opacification to suggest the presence of an infiltrate. No pleural effusions. Labs Labs: Laboratory Results - last 24 hr 02/21/25 02/21/25 02/21/25 04:40 08:06 12:19 POC Capillary Glucose 195 H 183 H Procalcitonin 0.1 Influenza A (RT-PCR) Influenza B (RT-PCR) RSV (RT-PCR) SARS-CoV-2 RNA (RT-PCR) 02/21/25 02/21/25 02/21/25 13:07 17:27 19:39 POC Capillary Glucose 182 H 138 H Procalcitonin Influenza A (RT-PCR) Negative Influenza B (RT-PCR) Negative RSV (RT-PCR) Negative SARS-CoV-2 RNA (RT-PCR) Negative Quality VTE Prophylaxis VTE prophylaxis: pharmacologic ordered
[2025-02-22 08:03] LABS: Glucose Point of Care 117 mg/dl (65-105)
[2025-02-22 08:17] LABS: Basophils Percent Auto 0.2 % (0.2-1.2); Eosinophils Percent Auto 0.2 % (0-4.4); Hematocrit 45.4 % (42.0-52.0); Hemoglobin 13.4 g/dL (14.0-18.0); Immature Granulocyte Absolute 0.12 K/mm3 (0.00-0.031); Immature Granulocyte Percent A 0.7 % (0-0.5); Lymphocytes Percent Auto 13.4 % (18.3-44.2); Mean Corpuscular HGB Conc 29.5 g/dl (32-36); Mean Corpuscular Hemoglobin 22.3 pg (26-34); Mean Corpuscular Volume 75.5 fl (80-100); Mean Platelet Volume 9.9 fl (7.4-10.4); Monocytes Absolute Auto 1.2 K/mm3 (0.1-0.6); Monocytes Percent Auto 6.8 % (2.6-8.5); Neutrophils Absolute Auto 13.5 K/mm3 (1.3-6.7); Neutrophils Percent Auto 78.7 % (45.5-73.1); Platelet Count Result 571 k/mm3 (150-375); Red Blood Count 6.01 M/mm3 (4.6-6.20); White Blood Count 17.2 K/mm3 (4.5-10.0)
[2025-02-22] MEDS: ATORVASTATIN 40 MG TABLET PO (08:34)
[2025-02-22] MEDS: TAMSULOSIN HCL 0.4 MG CAPSULE PO (08:34)
[2025-02-22] MEDS: guaiFENesin 12 HR 600 MG TABCR 1200 MG PO ×2 (08:34→20:20)
[2025-02-22] MEDS: cloNIDine HCL 0.2 MG TABLET PO ×2 (08:35→20:21)
[2025-02-22] MEDS: GABAPENTIN 100 MG CAPSULE PO ×3 (08:35→17:01)
[2025-02-22] MEDS: IRBESARTAN 150 MG TABLET 300 MG PO (08:35)
[2025-02-22] MEDS: CHLORTHALIDONE 25 MG TABLET PO (08:35)
[2025-02-22] MEDS: ASPIRIN 81 MG ENTERIC TABLET PO (08:35)
[2025-02-22] MEDS: NIFEdipine 30 MG TAB.ER.24 90 MG PO (08:35)
[2025-02-22] MEDS: LORazepam (*CRX) 0.5 MG TABLET PO ×2 (08:35→20:21)
[2025-02-22] MEDS: PANTOPRAZOLE 40 MG TABLET PO ×2 (08:35→20:20)
[2025-02-22 08:36] LABS: Platelet Estimate Increased (Adequate); Schistocytes None Seen
[2025-02-22] MEDS: ENOXAPARIN 40 MG/0.4 ML SYRINGE SUB-Q (08:37)
[2025-02-22 08:38] LABS: Alanine Aminotransferase 24 U/L (6-50); Albumin Level 3.6 g/dL (3.5-5.1); Alkaline Phosphatase 78 U/L (38-126); Anion Gap 10 mmol/L (4-12); Aspartate Amino Transferase 40 U/L (17-59); Bilirubin,Total 0.8 mg/dL (0.2-1.3); Blood Urea Nitrogen 37 mg/dL (9-20); Calcium 9.6 mg/dL (8.4-10.2); Carbon Dioxide 27 mmol/L (22-30); Chloride 101 mmol/L (98-107); Estimated CRCL calculation 29 ml/min; Estimated Glomerular Filt Rate 43; Glucose 103 mg/dL (65-110); Potassium 3.7 mmol/L (3.4-5.0); Sodium 138 mmol/L (137-145); Total Protein 6.6 g/dL (6.3-8.2)
[2025-02-22] MEDS: polyethylene glycoL 3350 17 GM POWD.PACK PO (11:03)
[2025-02-22] MEDS: DOXYCYCLINE HYCLATE 100 MG TABLET PO ×2 (11:03→20:20)
[2025-02-22] MEDS: FUROSEMIDE 40 MG TABLET PO (11:03)
[2025-02-22 12:00] LABS: Glucose Point of Care 154 mg/dl (65-105)
--- NOTE | 2025-02-22 12:51 | P.CONCA_ITS ---
Assessment and Plan Assessment and plan (1) Hypertensive heart disease without heart failure: Code(s): I11.9 - Hypertensive heart disease without heart failure Status: Chronic Plan 84-year-old man with coronary artery disease with chronic labile hypertension as well. 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 His sinus tachycardia is a function of his respiratory difficulty/COPD exacerbation rather than an arrhythmia that merits further treatment. If his lung disease was not as severe it is is I would titrate in a small dose of beta- irais therapy but it is my clinical sense that this would be poorly tolerated. For now I would continue his chronic regimen as you have and we will continue to follow him in the office. Again I have not seen this gentleman in about 3 years in the office. He says he has an upcoming appointment with me later this year I plan to see him then. I do not plan on adjusting his antihypertensives now while he is in the hospital Alex Garcia MD [facility] History of Present Illness History of Present Illness Consult date/time: 02/22/25 12:51 Reason For Visit: COPD/Emphysema Exacerbation Narrative: This is a 84-year-old man I am seeing at the request of the hospitalist because of hypertension and tachycardia. Patient is known to me with history of coronary artery disease but I have not seen him in the office for follow-up appointment in about 3 years. He was admitted to the hospital several days ago with shortness of breath and coughing that has been attributed to some sort of inhalational problem related to having sealant put in his basement/AH crawl space under is house. He states when the weather got really hot recently is created some sort of fumes in the house and he had a lot of difficulty breathing, coughing and eventually came to the emergency room and was admitted to the hospital. Since admission it is noted that he is significantly hypertensive with systolic pressures that I between 150 and 190. He has also had persistent sinus tachycardia. He is on telemetry other than sinus tachycardia there have been no arrhythmias identified. Patient is a longstanding former smoker of more than 53 years accumulating more than 100 pack years of smoking. Pulmonology, consult has already taken place to help treat his chronic lung disease. He offers no complaints at this time and feels well. He is concerned that his house will be a remedies so he was at some point be able to return home. I see this patient in the office for coronary disease or at least have in the past. His he underwent PCI with angioplasty and stenting of his right coronary artery back in 2006. He has had a long history of significant, labile hypertension and takes are regimen including clonidine, high doses of beer per start 10 and nifedipine. He also is on chlorthalidone. He primarily sees his PCP for hypertension management. There is mention in the chart that he has renal artery stenosis. The patient states that he was evaluated by a specialist many years ago and was told that he had a stenosis in sub branch of 1 of his renal arteries but that intervention on this vessel was not felt to be indicated or prudent. He says that this evaluation occurred about 15 years ago. His electrocardiogram shows sinus tachycardia with left axis deviation and left ventricular hypertrophy. Once again other than sinus tachycardia no arrhythmias are seen on telemetry Review of Systems 2 Constitutional: Constitutional: Reports no additional constitutional complaints Eyes: Eyes: Reports no additional eye complaints ENT: Reports system reviewed and no additional complaints, except as documented Cardiovascular: Cardiovascular: Reports no additional cardiovascular complaints Respiratory: Respiratory: Reports cough and Reports dyspnea Gastrointestinal: Gastrointestinal: Reports no additional gastrointestinal complaints Musculoskeletal: Musculoskeletal: Reports no additional musculoskeletal complaints Integumentary/Breasts: Skin/Breast: Reports system reviewed and no additional complaints, except as docu Neurologic: Reports system reviewed and no additional complaints, except as documented Endocrine: Endocrine: Reports no additional endocrine complaints Hematologic/Lymphatic: Hematologic/Lymphatic: Reports no additional hematologic/lymphatic complaints Allergic/Immunologic: Allergic/Immunologic: Reports no additional allergic/immunologic complaints [facility] Past Medical History Medical History Renal artery stenosis Peripheral vascular disease Coronary artery disease Colorectal cancer Type 2 diabetes mellitus Hypertension Gastroesophageal reflux disease Chronic kidney disease, stage 3 Diabetic neuropathy Mixed hyperlipidemia Carotid artery stenosis Surgical History Surgical History History of right-sided carotid endarterectomy History of cholecystectomy History of cataract extraction History of coronary artery stent placement History of colon surgery Family History Family History Mother Family history of coronary artery disease Cerebrovascular accident Sibling Family history of coronary artery disease Other Hypertension Other Diabetes mellitus Father Diabetes mellitus Other Family history of cardiovascular disease Social History Social History Social History: Surrogate medical decision maker: Cassius Pérez, brother. Code status: Full code. Smoking packs per day: 2 Smoking cigarettes per day: 40.0 Years smoked: 53 Smoking pack-years: 106.00 Smoking status: Former smoker Tobacco type: cigarettes Second hand tobacco smoke exposure: Yes Alcohol intake: never Substance use: never Substance use type: does not use Do You Feel Safe in your Home?: Yes Lack of Transportation: No Lack of Food: Never True Current Housing: I Have Housing Concerned About Future Housing: No Difficulty Paying Gas/Electric Bills: No Difficulty Paying for Meds: No Currently Unemployed: No Education: High School Diploma/GED Difficulty w/ Childcare or Family Care: No Living arrangements: alone Additional living arrangements comments: Lives in [place]. . Has 1 son. 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 Gender identity (if verbalized by the patient): Male Spiritual care concerns: No Meds Home Medications and Allergies Home Medications ?Medication ?Instructions ?Recorded ?Confirmed ?Type aspirin 81 mg tablet,delayed 81 mg PO DAILY 10/16/19 02/20/25 History release (Adult Aspirin Regimen) blood-glucose meter (Accu-Chek #1 ea 09/14/20 02/21/25 Rx Jaimee Plus Meter) lancets (Accu-Chek Multiclix #200 ea 09/14/20 02/21/25 Rx Lancet) blood sugar diagnostic (Blood #100 ea 08/05/21 02/21/25 Rx Glucose Test strips) clonidine HCl 0.1 mg tablet 0.1 mg PO USEASDIRECTD 08/24/23 02/20/25 History gabapentin 100 mg capsule 100 mg PO TID Chronic Shingles 06/13/24 02/20/25 Rx neuropathy #270 caps pantoprazole 40 mg tablet,delayed See Rx Instructions .Route 08/09/24 02/20/25 Rx release .COMPLEX #180 tabs tamsulosin 0.4 mg capsule 0.4 mg PO DAILY #90 caps 08/13/24 02/20/25 Rx nifedipine 90 mg tablet,extended See Rx Instructions .Route 11/11/24 02/20/25 Rx release .COMPLEX #90 tabs chlorthalidone 25 mg tablet 25 mg PO DAILY #30 tabs 01/21/25 02/20/25 Rx lorazepam 0.5 mg tablet 0.5 mg PO BID PRN anxiety #45 tabs 02/06/25 02/20/25 Rx metformin 500 mg tablet,extended 500 mg PO DAILY #90 tabs 02/11/25 02/20/25 Rx release 24 hr atorvastatin 40 mg tablet See Rx Instructions .Route 02/12/25 02/20/25 Rx .COMPLEX #90 tabs irbesartan 300 mg tablet See Rx Instructions .Route 02/12/25 02/20/25 Rx .COMPLEX #90 tabs prednisone 10 mg tablet See Rx Instructions .Route 02/17/25 02/20/25 Rx .COMPLEX #18 tabs Allergies Allergy/AdvReac Type Severity Reaction Status Date / Time No Known Allergies Allergy Verified 02/20/25 08:40 Vital Signs Vital Signs - 24 hr 02/21/25 13:46 02/21/25 14:12 02/21/25 16:00 Temperature 36.6 C Pulse Rate 112 H 99 101 H Respiratory Rate 18 18 Blood Pressure 161/88 H Pulse Oximetry 92 Oxygen Delivery Oxygen Flow Rate 02/21/25 19:34 02/21/25 19:51 02/21/25 19:53 Temperature 36.3 C L Pulse Rate 94 102 H Respiratory Rate 18 18 Blood Pressure 150/60 H Pulse Oximetry 87 L 93 Oxygen Delivery Room Air Oxygen Flow Rate 02/21/25 20:00 02/21/25 20:00 02/21/25 20:01 Temperature Pulse Rate 100 94 Respiratory Rate 18 Blood Pressure Pulse Oximetry Oxygen Delivery Room Air Oxygen Flow Rate 02/22/25 00:00 02/22/25 01:54 02/22/25 02:00 Temperature Pulse Rate 80 91 97 Respiratory Rate 18 18 Blood Pressure Pulse Oximetry Oxygen Delivery Oxygen Flow Rate 02/22/25 04:00 02/22/25 06:00 02/22/25 08:00 Temperature 36.6 C Pulse Rate 84 100 116 H Respiratory Rate 22 H Blood Pressure 176/76 H Pulse Oximetry 92 Oxygen Delivery Oxygen Flow Rate 02/22/25 08:15 02/22/25 08:15 02/22/25 08:23 Temperature Pulse Rate 112 H 111 H Respiratory Rate 20 20 Blood Pressure Pulse Oximetry 93 Oxygen Delivery Nasal Cannula Oxygen Flow Rate 3 02/22/25 08:35 02/22/25 12:00 Temperature Pulse Rate 93 Respiratory Rate Blood Pressure Pulse Oximetry Oxygen Delivery Nasal Cannula Oxygen Flow Rate 3 Exam 2 Const: General: comfortable and no acute distress Other: Pleasant elderly man seated in the bedside chair no complaints at this time HENMT: Mouth: Yes moist mucous membranes Eyes: Sclera: sclerae normal Neck: Neck: supple and no JVD Resp: Effort & Inspection: normal respiratory effort Other: Breath sounds are somewhat diminished but essentially clear throughout both lung wilks Cardio: Rate: regular rate Rhythm: regular rhythm Other: S4 is audible no cardiac murmur GI: GI Palp: Yes Soft to palpation Auscultation: normal bowel sounds : Male General Exam: Yes normal external exam Skin: General skin exam: normal color Neuro: Other: Alert and oriented x3 Extrem: General: normal to inspection Results Labs and Meds 02/22/25 05:00 02/22/25 05:00 Lab results: Cardiac Enzymes 02/22/25 Range/Units 05:00 AST 40 (17-59) U/L CBC 02/22/25 Range/Units 05:00 WBC 17.2 H (4.5-10.0) K/mm3 RBC 6.01 (4.6-6.20) M/mm3 Hgb 13.4 L (14.0-18.0) g/dL Hct 45.4 (42.0-52.0) % Plt Count 571 H (150-375) k/mm3 Lymph # (Auto) 2.30 (0.9-3.2) K/mm3 [place] # (Auto) 1.2 H (0.1-0.6) K/mm3 Eos # (Auto) 0.0 (0-0.3) K/mm3 Baso # (Auto) 0.0 (0.0-0.1) K/mm3 Comprehensive Metabolic Panel 02/22/25 Range/Units 05:00 Sodium 138 (137-145) mmol/L Potassium 3.7 (3.4-5.0) mmol/L Chloride 101 (98-107) mmol/L Carbon Dioxide 27 (22-30) mmol/L BUN 37 H D (9-20) mg/dL Creatinine 1.57 H (0.7-1.3) mg/dL Glucose 103 (65-110) mg/dL Calcium 9.6 (8.4-10.2) mg/dL AST 40 (17-59) U/L ALT 24 (6-50) U/L Alkaline Phosphatase 78 (38-126) U/L Total Protein 6.6 (6.3-8.2) g/dL Albumin 3.6 (3.5-5.1) g/dL Intake and Output 02/21/25 02/22/25 02/22/25 23:59 07:59 15:59 Intake Total 240 350 480 Output Total 1200 1100 Balance -960 -750 480 Intake: Oral 240 350 480 Output: Catheter Urine 1200 1100 Urethral Catheter 1200 1100 Other: # Unmeasured Voids 1 Number of Bowel Movements Today 1 Patient Weight 02/22/25 23:59 Weight 80.2 kg
[2025-02-22] MEDS: cloNIDine HCL 0.1 MG TABLET PO (14:52)
[2025-02-22 17:13] LABS: Glucose Point of Care 139 mg/dl (65-105)
--- NOTE | 2025-02-22 18:18 | ECG_ITS ---
Test Date: 2025-02-22 18:29:43 Measurements Intervals [place] Rate: 114 P: 87 [place]: 178 QRS: -63 QRSD: 94 T: 101 QT: 323 QTc: 445 Interpretive Statements SINUS TACHYCARDIA WITH OCCASIONAL SUPRAVENTRICULAR PREMATURE COMPLEXES LEFT ANTERIOR FASCICULAR BLOCK LEFT VENTRICULAR HYPERTROPHY AND ST-T CHANGE CANNOT R/O SEPTAL INFARCT, AGE INDETERMINATE BASELINE ARTIFACT- I, II, AVR, V4-V6 ABNORMAL ECG Compared to ECG 02/21/2025 10:22:05 No significant changes Electronically Signed On 02-22-2025 20:21:33 CDT by Eduardo Haywood D.O.
--- NOTE | 2025-02-22 18:39 | P.PNPL_ITS ---
Progress Note: A&P Assessment and Plan (1) Pneumonia: Code(s): J18.9 - Pneumonia, unspecified organism Status: Acute Assessment and Plan: Patient has had continued worsening cough without dyspnea on exertion since then. He presents on 02/20/2025 with cough, shortness of breath, wheezes and a CT scan that shows new left lower lobe consolidation and right lower lobe nodular infiltrate since 02/10/2025. 02/21/2025: Plan: Patient currently afebrile. Leukocytosis has improved to 12. Procalcitonin is 0.1. Continue ceftriaxone and doxycycline, both started on 02/20/2025, day 2. I will send a COVID, influenza, RSV RT PCR assay. Respiratory pathogen panel, urine Legionella, urine pneumococcal antigen and serum mycoplasma IgM are pending. Goal saturation 90-94%. Currently is on room air. Discussed with Dr. Helton, will follow with you. 02/22/25; overall better, less green sputum, cough and shortness of breath. (2) Impaired respiratory function due to exposure to chemical: Code(s): J68.9 - Unspecified respiratory condition due to chemicals, gases, fumes and vapors Status: Acute Assessment and Plan: The patient had his house crawls space sealed With a poly foam by the [facility] department in the fall of 2023. He had no respiratory issues until once the weather heated up this spring and he developed a dry cough which was worsened when he is in his house and is resolved when he leaves his house. On 02/07/2025 the [facility] housing department applied a 2nd coat and he sought medical attention for dry cough, shortness of breath and congestion on 02/10/2025. He again improved when he left the house. His brother drove him home and was in the house for 30 minutes and developed burning eyes and tearing eyes which resolved 10 minutes after he left the house. Patient has had continued worsening cough without dyspnea on exertion since then. He presents on 02/20/2025 with cough, shortness of breath, wheezes and a CT scan that shows new left lower lobe consolidation and right lower lobe nodular infiltrate since 02/10/2025. 02/21/25: Currently the patient states that his cough is gone, he has no shortness of breath at rest or with walking to the bathroom. When I enter the room he was on 3 L nasal cannula saturations 95%. I decreased him to room air and after 21 minutes his saturations were 93%. patient is afebrile. White blood cell count 14.0, creatinine 1.50, BNP 2540, procalcitonin 0.1. Plan: On 02/19/2025 the [facility] department came and placed vents in his crawl space to vent the air to the outside. They are supposed to return on 02/21/2025 to make these vents larger. His son who I spoke with his at the house and I have told the son to go into the house to see if he has any development of new symptoms. I talked to the son for 5 minutes while he was in the house and he had developed no symptoms and I told the son if he develops the slightest of symptoms including watering eyes, itchy eyes, burning nose, chemical taste in the mouth, shortness of breath, cough, wheezing that he should leave the house immediately and document how long he was in the house until he develops symptoms. Currently the patient is not wheezing and I will discontinue systemic steroids. Patient is tachycardic and I will discontinue albuterol and continue ipratropium. 02/22/25; He is less symptomatic, less coughing and shortness of breath. He has not heard from the [facility], knows that work was being done. He will need air purifiers in his home at discharge. 0 . (3) COPD (chronic obstructive pulmonary disease): Code(s): J44.9 - Chronic obstructive pulmonary disease, unspecified Status: Acute Assessment and Plan: GOLD grade 2 group B COPD Regarding his COPD, the patient has a history of tobacco use from 1955 to 2006 at 2 packs per day for a total of 104 pack years, he was exposed to secondhand smoke from his until 2014, he has no other occupational exposures. PFTs from 12/23/2021 with a moderate obstructive abnormality been FEV1 of 1.60 L, 65% predicted, ratio 50%, positive bronchodilator response, normal lung volumes and a mildly decreased DLCO that remains mildly decreased when adjusted for alveolar volume. For CT scan in our system from 10/19/2008 shows mild apical predominant centrilobular emphysema. CT scan of the chest on 06/01/2017 with mild to moderate apical predominant centrilobular emphysema and CT scan of the chest on 02/10/2025 and 02/20/2025 shows moderate apical predominant centrilobular emphysema. 3 years ago the patient tells me he could walk 5 miles. One year ago the patient tells me he can walk 3 miles and he gets tired but does not complain of dyspnea on exertion. Three weeks ago the patient tells me he could walk to miles and has no breathing limitations but would get tired. Chronically he denies cough, phlegm or hemoptysis. White blood cell count 9.4, eosinophils 3.6% equal 338 per micro L 02/21/2025: I am not convinced the patient is having an active COPD it exacerbation at this time. It sounds more like a combination of chemical exposure and/or pneumonia. Plan: I will discontinue systemic steroids at this time. Patient has sinus tachycardia at this time and I will discontinue his albuterol. I will place him on ipratropium nebulizers q.6 hours. Treat for for pneumonia as above. 02/22/25; he feels better, less coughing, less short of breath, able to get up to walk to bathroom with less problem today. He is on 3 L/min, sat 93-100%. Overall improved. (4) LOPEZ (obstructive sleep apnea): Code(s): G47.33 - Obstructive sleep apnea (adult) (pediatric) Status: Chronic Assessment and Plan: Regarding his obstructive sleep apnea, patient had a split night sleep study on 01/29/2008 with BMI of 31.1 and an Kimball score of 10 with moderate sleep apnea with an AHI of 13.8. adequate titration to CPAP 14 with correction of respiratory events. Patient was set up with CPAP machine and wore full face mask for about a year and then the machine broke and it was expensive and he discontinue the use of this machine. 02/21/2025. The patient tells me he is not interested in wearing a CPAP machine at home. plan: I will perform overnight oximetry on room air after the patient has improved to assess nocturnal hypoxemia. Subjective Date/time seen: 02/22/25 18:39 Interval history: 02/21/2025: This is a new pulmonary consult for COPD exacerbation. 84-year-old with a history of COPD, untrated LOPEZ, diabetes with neuropathy, [place] nary artery disease status post stent x3, peripheral vascular disease with renal artery stenosis, hypertension, CKD, GERD, hyperlipidemia, history of TIA status post right endarterectomy and history of colon cancer. Regarding his COPD, The patient tells me he does not have COPD and has never been diagnosed with COPD. However, the patient has a history of tobacco use from [id number] at 2 packs per day for a total of 104 pack years, he was exposed to secondhand smoke from his until 2013, he has no other occupational exposures. PFTs from 12/23/2021 with a moderate obstructive abnormality, positive bronchodilator response, normal lung volumes and a mildly decreased DLCO that remains mildly decreased when adjusted for alveolar volume. For CT scan in our system from 10/19/2008 shows mild apical predominant centrilobular emphysema. CT scan of the chest on 06/01/2017 with mild to moderate apical predominant centrilobular emphysema and CT scan of the chest on 02/10/2025 and 02/20/2025 shows moderate apical predominant centrilobular emphysema. 3 years ago the patient tells me he could walk 5 miles. One year ago the patient tells me he can walk 3 miles and he gets tired but does not complain of dyspnea on exertion. Three weeks ago the patient tells me he could walk to miles and has no breathing limitations but would get tired. Chronically he denies cough, phlegm or hemoptysis. Regarding his obstructive sleep apnea, patient had a split night sleep study on 01/29/2008 with BMI of 31.1 and an Kimball score of 10 with moderate sleep apnea with an AHI of 13.8. adequate titration to CPAP 14 with correction of respiratory events. Patient was set up with CPAP machine and wore full face mask for about a year and then the machine broke and it was expensive and he discontinue the use of this machine. Last fall the medicine housing department sealed his crawl space with poly foam material. The patient had no respiratory issues throughout the winter or spring months. Patient was in his usual state of health with no respiratory limitations in his activities of daily living. When the weather started getting warm he noticed that he developed a dry cough while he was in the house that would clear when he left the house. He denied fever, chills, rigors, phlegm production or hemoptysis. The department then came to his house and put a 2nd coating of the poly foam into his crawl space on approximately . patient's coughing progressed and he went to the emergency department on 02/10/2025 with cough, nasal congestion, wheezing and yellow phlegm. He had also gained 15 lb of edema in the last month. His room air saturations were 91-92. White blood cell count 9.4, eosinophils 3.6% equal 338 per micro L. He had a CT angiogram of the chest that was negative for PE with no focal infiltrates. does not appear he was sent home on any medicines. Diagnosis bronchitis. His brother drove him home and they went in the house and after 30 minutes the brother noticed that his eyes begin to burn and he started to cry. He left the house and his brother told him later that after 10 minutes of leaving the house his eyes stopped burning. Patient had continued coughing without dyspnea on exertion, shortness of breath, phlegm production. He saw his PCP on 02/17 who stated he had been short of breath for 4 days, increase edema and a prednisone taper was prescribed. The patient took this prednisone taper but noticed no improvement. On 02/19/2025 the medicine department came out and opened up outside ventilation in to his crawl space. And the plan was for them to come back on 02/21/2025 to make the vents larger. 02/20/2025: Patient presented to the emergency room with cough, blood pressure 207/64, heart rate 88, room air saturations 95%, then placed on 3 L with saturation 93%. White blood cell count 14.0, creatinine 1.50, BNP 672, ABG on 3 L 7.48/38/47. Patient had a CT scan of the chest that showed moderate apical pr edominant centrilobular emphysema, new left lower lobe consolidation and right lower lobe nodular infiltrate compared to 02/10/2025. Patient was started on ceftriaxone, doxycycline, Solu-Medrol and DuoNebs. 02/21/25: Currently the patient states that his cough is gone, he has no shortness of breath at rest or with walking to the bathroom. When I enter the room he was on 3 L nasal cannula saturations 95%. I decreased him to room air and after 21 minutes his saturations were 93%. patient is afebrile. White blood cell count 14.0, creatinine 1.50, BNP 2540, procalcitonin 0.1. 02/22/25; sitting up in the chair, better, less cough, sputum, shortness of breath, able to walk to the BR with less effort. He is on 3 L/min, saturation 93-100%. WBC up, 17.2, BUN 37, creat 1.57. DATA: 02/20/25: CLINICAL INDICATION: Shortness of breath and worsening cough COMPARISON: 02/10/2025. Reference is also made to plain film evaluations of the chest performed 02/20/2025 and dating back to 08/23/2023. TECHNIQUE: Multiple contiguous axial images of the chest was performed without the administration of intravenous contrast. This CT examination was performed utilizing dose reduction techniques. DLP: 337 mGy-cm FINDINGS/OBSERVATIONS: LUNG: Panlobular emphysematous disease. Bibasilar centrilobular nodularity with associated part solid opacification, left greater than right. No significant pleural effusion. Trace bibasilar bronchiectasis, right greater than left. Calcified nodules within the bilateral lung bases suggesting prior granulomatous disease. HEART: The heart is of normal size, without pericardial effusion. Aortic and mitral valve calcifications. MEDIASTINUM: Calcified lymph nodes within the bilateral jossie and subcarinal lymph node station suggesting prior granulomatous disease. Limited evaluation of noncalcified lymph nodes secondary to the lack of intravenous contrast. SOFT TISSUES OF THE CHEST: Unremarkable. BONES OF THE CHEST: No acute fracture. No lytic or blastic lesions are identified. UPPER ABDOMEN: Small hiatal hernia. Fatty atrophy of the pancreas. Punctate calcifications identified within the splenic parenchyma, suggesting prior granulomatous disease. IMPRESSION: Findings suggesting prior granulomatous disease. Panlobular emphysematous disease. Interval development of bibasilar centrilobular nodularity with associated groundglass and part solid opacification, left greater than right. No air bronchograms are identified within this opacification to suggest the presence of an infiltrate. No pleural effusions. 02/20/2025: Summary 1. Complete two-dimensional, color flow and Doppler transthoracic echocardiogram is performed. 2. Left ventricular chamber dimension is normal. 3. Left ventricular systolic function is normal, estimated at 65-70. 4. The left ventricular diastolic function is grade I diastolic dysfunction. 5. E/e' 12 is mildly elevated. 6. The aortic valve is not well visualized. Cannot determine number of aortic valve leaflets. Right Ventricle Right ventricular chamber dimension is normal. Right ventricular systolic function is normal and with normal TAPSE 2.2 cm. Right Atria Right atrial chamber dimension is normal. Tricuspid Valve There is no tricuspid valve regurgitation. No RVSP calculated. 02/10/25:Clinical Indication: Shortness of breath CT Scan of the Chest with Contrast: Technique: Contiguous sections were acquired throughout the chest after intravenous administration of 100 cc of Omnipaque 350. Dose reduction technique was used on this scan by utilizing automated exposure control and iterative reconstruction technique. The dose-length product (DLP) was 645.88 mGy-cm. Findings: There is no evidence of any significant mediastinal, hilar or axillary lymphadenopathy. There is no filling defect in the pulmonary arterial tree to suggest pulmonary embolus. There is no evidence of aortic dissection or an eurysm. There is no evidence of pleural or pericardial effusion. Moderate to advanced emphysema noted. Calcified right basilar granulomas are present. Images through the upper abdomen reveal no abnormalities. Impression: No evidence of pulmonary embolus, aortic dissection, or aortic aneurysm. Moderate to advanced emphysema. 12/23/2021: This is a pulmonary function test with pre and post-bronchodilator spirometry, plethysmography and diffusing capacity. The test was performed and results interpreted in accordance with the 2019 and 2005 ATS/ERS Task Force guidelines respectively using the Global Lung Function Initiative-2012 reference equations. Patient demonstrated good effort and cooperation. Reproducibility criteria were met. The quality of the pre bronchodilator spirometry maneuver was Grade A and post bronchodilator spirometry maneuver was Grade A. Findings: Spirometry: There is decreased maximal expiratory airflow at all lung volumes with a concave expiratory flow tracing. The contour the inspiratory flow tracing is normal. The pre bronchodilator FVC is 3.23 L, 99% predicted. The pre bronchodilator FEV1 is 1.60 L, 65% predicted. The pre bronchodilator FEV1: FVC ratio is 50%. The post bronchodilator FVC is 3.62 L, representing a 12% increase. The post bronchodilator FEV1 is 1.76 L, representing a 10% increase. The post bronchodilator FEV1: FVC ratio is 49%. Plethysmography: The total lung capacity is 7.47 L, 124% predicted. The functional residual capacity is 2.87 L, 89% predicted. The residual volume is 2 .77 L, 117% predicted. Diffusing capacity: The diffusing capacity unadjusted for hemoglobin and carboxyhemoglobin is 13.3, 61% predicted. The diffusing capacity adjusted for alveolar volume is 2.60, 66% predicted. Impression: There is a moderate obstructive abnormality. There is significant improvement after inhaling a single dose of albuterol. The lung volumes are normal. The diffusing capacity unadjusted for hemoglobin and carboxyhemoglobin is mildly decreased and remains mildly decreased when adjusted for alveolar volume. There are no prior studies for comparison 01/29/2008: split night sleep study DIAGNOSTIC IMPRESSION: Moderate obstructive sleep apnea with an AHI of 13.8 associated with significant oxygen desaturations and heavy snoring. Adequate titration to 14cm of water C-pap was noted with correction of respiratory events. Snoring was also significantly controlled at that level as well. REM was achieved. In all sleep architecture improved significantly with C-pap titration with all stages of sleep being represented. Would recommend C-pap 14cm of water with a large Quattro full face mask with a ramp time of 10 minutes and a heated humidifier for added comfort. Review of Systems Review of Systems: All systems reviewed & are unremarkable except as noted in HPI and below Exam Const: General: cooperative, healthy appearing and comfortable Orientation/consciousness: oriented to person, oriented to place and oriented to time HENMT: Head: normal to inspection Ears: hearing grossly normal bilaterally Eyes: General: appearance normal, both eyes and all related structures Neck: Neck: normal visual inspection Chest: Chest palpation & inspection: normal inspection of the chest Resp: Effort & Inspection: normal respiratory effort and able to speak in complete sentences Auscultation: crackles, no rales, no rhonchi, no wheezes and lung sounds not diminished Other: Few crackles both bases, no wheezing. Cardio: Jugular venous distension: no JVD GI: Inspection: normal to inspection GI Palp: No abdominal tenderness Skin: General skin exam: normal color Neuro: General: oriented to person, oriented to place and oriented to time Extrem: General: normal to inspection and no edema Psych: Appearance: grossly normal Objective Data Vital Signs Vital Signs: Vital Signs - 24 hr 02/21/25 19:34 02/21/25 19:51 02/21/25 19:53 Temperature 36.3 C L Pulse Rate 94 102 H Respiratory Rate 18 18 Blood Pressure 150/60 H Pulse Oximetry 87 L 93 Oxygen Delivery Room Air Oxygen Flow Rate 02/21/25 20:00 02/21/25 20:00 02/21/25 20:01 Temperature Pulse Rate 100 94 Respiratory Rate 18 Blood Pressure Pulse Oximetry Oxygen Delivery Room Air Oxygen Flow Rate 02/22/25 00:00 02/22/25 01:54 02/22/25 02:00 Temperature Pulse Rate 80 91 97 Respiratory Rate 18 18 Blood Pressure Pulse Oximetry Oxygen Delivery Oxygen Flow Rate 02/22/25 04:00 02/22/25 06:00 02/22/25 08:00 Temperature 36.6 C Pulse Rate 84 100 116 H Respiratory Rate 22 H Blood Pressure 176/76 H Pulse Oximetry 92 Oxygen Delivery Oxygen Flow Rate 02/22/25 08:15 02/22/25 08:15 02/22/25 08:23 Temperature Pulse Rate 112 H 111 H Respiratory Rate 20 20 Blood Pressure Pulse Oximetry 93 Oxygen Delivery Nasal Cannula Oxygen Flow Rate 3 02/22/25 08:35 02/22/25 12:00 02/22/25 13:10 Temperature Pulse Rate 93 102 H Respiratory Rate 16 Blood Pressure Pulse Oximetry Oxygen Delivery Nasal Cannula Oxygen Flow Rate 3 02/22/25 13:16 02/22/25 14:00 02/22/25 16:00 Temperature 36.5 C Pulse Rate 106 H 96 92 Respiratory Rate 16 18 Blood Pressure 130/60 Pulse Oximetry 100 Oxygen Delivery Oxygen Flow Rate Intake/Output Intake/Output: Intake & Output 02/19/25 02/20/25 02/21/25 02/22/25 23:59 23:59 23:59 23:59 Intake Total 1170 1720 1430 Output Total 202 3500 1100 Balance -855 -1780 330 Meds/Results Medications: Active Medications Generic Name Dose Route Start Last Admin Trade Name Freq PRN Reason Stop Dose Admin Acetaminophen 650 mg 02/20/25 06:42 Acetaminophen 325 Mg Tablet PO Q4H PRN Mild Pain (1-3) or Fever Aspirin 81 mg 02/21/25 09:00 02/22/25 08:35 Aspirin 81 Mg Enteric Tablet PO 81 mg DAILY CHAPARRO Administration Atorvastatin Calcium 40 mg 02/20/25 10:30 02/22/25 08:34 Atorvastatin 40 Mg Tablet PO 40 mg DAILY CHAPARRO Administration Cephalexin HCl 500 mg 02/22/25 00:00 02/22/25 17:01 Cephalexin 500 Mg Capsule PO 500 mg Q8H CHAPARRO Administration Chlorthalidone 25 mg 02/21/25 09:00 02/22/25 08:35 Chlorthalidone 25 Mg Tablet PO 25 mg DAILY CHAPARRO Administration Clonidine HCl 0.2 mg 02/20/25 21:00 02/22/25 08:35 Clonidine Hcl 0.2 Mg Tablet PO 0.2 mg Q12HR CHAPARRO Administration Clonidine HCl 0.1 mg 02/20/25 15:00 02/22/25 14:52 Clonidine Hcl 0.1 Mg Tablet PO 0.1 mg DAILY@1500 CHAPARRO Administration Dextrose 12.5 gm 02/20/25 16:32 Dextrose 50% 25 Gm/50 Ml Syringe IV PUSH PRN PRN Hypoglycemia Protocol Doxycycline Hyclate 100 mg 02/22/25 10:00 02/22/25 11:03 Doxycycline Hyclate 100 Mg Tablet PO 100 mg Q12H CHAPARRO Administration Enoxaparin Sodium 40 mg 02/21/25 09:00 02/22/25 08:37 Enoxaparin 40 Mg/0.4 Ml Syringe SUB-Q 40 mg DAILY CHAPARRO Administration Furosemide 40 mg 02/22/25 09:00 02/22/25 11:03 Furosemide 40 Mg Tablet PO 40 mg DAILY CHAPARRO Administration Gabapentin 100 mg 02/20/25 13:00 02/22/25 17:01 Gabapentin 100 Mg Capsule PO 100 mg TID CHAPARRO Administration Glucagon 1 mg 02/20/25 16:32 Glucagon For Inj 1 Mg Vial IM PRN PRN Hypoglycemia Protocol Glucose 15 gm 02/20/25 16:32 Glucose Oral Gel 15 Gm Of Glucse In 37.5 Gm Tube PO PRN PRN Hypoglycemia Protocol Guaifenesin 1,200 mg 02/21/25 21:00 02/22/25 08:34 Guaifenesin 12 Hr 600 Mg Tabcr PO 1,200 mg Q12HR CHAPARRO Administration Hydralazine HCl 10 mg 02/21/25 06:05 02/21/25 06:25 Hydralazine Hcl 20 Mg/Ml Vial IV PUSH 10 mg Q4H PRN Administration Blood Pressure - High Dextrose 1,000 mls @ 100 mls/hr 02/20/25 16:32 Dextrose 5% 1,000 Ml IVPB PRN PRN Hypoglycemia Protocol Insulin Aspart 2 - 5 units 02/20/25 17:00 02/22/25 17:27 Insulin Aspart (*Bkc) 100 Units/Ml SUB-Q Not Given TIDWM [facility] Protocol Insulin Aspart 1 - 2 units 02/20/25 21:00 02/21/25 21:21 Insulin Aspart (*Bkc) 100 Units/Ml SUB-Q Not Given HS [facility] Protocol Ipratropium [place] 0.5 mg 02/21/25 14:00 02/22/25 13:08 Ipratropium Br 0.02% Inh Soln 0.5 Mg/2.5 Ml Vial INHALATION 0.5 mg Q6HRT [facility]O Administration Irbesartan 300 mg 02/20/25 10:30 02/22/25 08:35 Irbesartan 150 Mg Tablet PO 300 mg DAILY CHAPARRO Administration Lorazepam 0.5 mg 02/20/25 10:26 02/22/25 08:35 Lorazepam (*Crx) 0.5 Mg Tablet PO 0.5 mg BID PRN Administration anxiety Nifedipine 90 mg 02/20/25 10:30 02/22/25 08:35 Nifedipine 30 Mg Tab.Er.24 PO 90 mg DAILY CHAPARRO Administration Pantoprazole Sodium 40 mg 02/20/25 10:30 02/22/25 08:35 Pantoprazole 40 Mg Tablet PO 40 mg Q12HR [facility]O Administration Perflutren Lipid Microsphere 0 ml 02/20/25 12:19 Perflutren Lipid Microspheres 1.5 Ml Vial Diluted To 10 Ml Total Volume IV PUSH 02/23/25 12:19 ONCE PRN adequate visualization Protocol Polyethylene Glycol 17 gm 02/22/25 10:06 02/22/25 11:03 Polyethylene Glycol 3350 17 Gm Powd.Pack PO 17 gm QAM PRN Administration Constipation Tamsulosin HCl 0.4 mg 02/21/25 09:00 02/22/25 08:34 Tamsulosin Hcl 0.4 Mg Capsule PO 0.4 mg DAILY CHAPARRO Administration Radiology Results: ITS Impressions Chest X-Ray 02/20/25 05:50 Impression: Questionable minimal pleural effusions with mild bibasilar atelectatic change. Underlying COPD. Chest CT 02/20/25 17:51 IMPRESSION: Findings suggesting prior granulomatous disease. Panlobular emphysematous disease. Interval development of bibasilar centrilobular nodularity with associated groundglass and part solid opacification, left greater than right. No air bronchograms are identified within this opacification to suggest the presence of an infiltrate. No pleural effusions. Labs Labs: Laboratory Results - last 24 hr 02/21/25 02/22/25 02/22/25 19:39 05:00 08:00 WBC 17.2 H RBC 6.01 Hgb 13.4 L Hct 45.4 MCV 75.5 L MCH 22.3 L MCHC 29.5 L RDW 21.0 H Plt Count 571 H MPV 9.9 Immature Gran % (Auto) 0.7 H Neut % (Auto) 78.7 H Lymph % (Auto) 13.4 L [place] % (Auto) 6.8 Eos % (Auto) 0.2 Baso % (Auto) 0.2 Lymph # (Auto) 2.30 [place] # (Auto) 1.2 H Eos # (Auto) 0.0 Baso # (Auto) 0.0 Abs Immat Gran (auto) 0.12 H Absolute Neuts (auto) 13.5 H Absolute Nucleated RBC 0.000 Band Neutrophils % Not Reportable Nucleated RBC % 0.0 Platelet Estimate Increased Schistocytes None seen Sodium 138 Potassium 3.7 Chloride 101 Carbon Dioxide 27 Anion Gap 10 BUN 37 H D Creatinine 1.57 H Estim Creat Clear Calc 29 Estimated GFR 43 L Glucose 103 POC Capillary Glucose 138 H 117 H Calcium 9.6 Total Bilirubin 0.8 AST 40 ALT 24 Alkaline Phosphatase 78 Total Protein 6.6 Albumin 3.6 02/22/25 02/22/25 11:54 17:08 POC Capillary Glucose 154 H 139 H
[2025-02-22 23:16] LABS: Glucose Point of Care 154 mg/dl (65-105)
[2025-02-23] VITALS (16 sets, daily range): BP systolic 135–183; BP diastolic 51–82; PULSE 78–118; RESP 16–18; TEMP 36.1–36.8; O2SAT 91–96
[2025-02-23] MEDS: IPRATROPIUM BR 0.02% INH SOLN 0.5 MG/2.5 ML VIAL INHALATION ×4 (02:28→20:09)
[2025-02-23 05:37] LABS: Basophils Absolute Auto 0.1 K/mm3 (0.0-0.1); Basophils Percent Auto 0.5 % (0.2-1.2); Eosinophils Absolute Auto 0.1 K/mm3 (0-0.3); Eosinophils Percent Auto 1.2 % (0-4.4); Hemoglobin 13.1 g/dL (14.0-18.0); Immature Granulocyte Absolute 0.08 K/mm3 (0.00-0.031); Immature Granulocyte Percent A 0.7 % (0-0.5); Lymphocytes Absolute Auto 1.68 K/mm3 (0.9-3.2); Lymphocytes Percent Auto 14.8 % (18.3-44.2); Mean Corpuscular HGB Conc 29.8 g/dl (32-36); Mean Corpuscular Hemoglobin 22.5 pg (26-34); Mean Corpuscular Volume 75.5 fl (80-100); Mean Platelet Volume 9.7 fl (7.4-10.4); Monocytes Percent Auto 9.2 % (2.6-8.5); Neutrophils Absolute Auto 8.4 K/mm3 (1.3-6.7); Neutrophils Percent Auto 73.6 % (45.5-73.1); Platelet Count Result 474 k/mm3 (150-375); Red Blood Count 5.83 M/mm3 (4.6-6.20); Red Cell Distribution Width 20.6 % (11.5-14.5); White Blood Count 11.4 K/mm3 (4.5-10.0)
[2025-02-23 05:53] LABS: Alanine Aminotransferase 21 U/L (6-50); Albumin Level 3.4 g/dL (3.5-5.1); Alkaline Phosphatase 73 U/L (38-126); Anion Gap 11 mmol/L (4-12); Aspartate Amino Transferase 22 U/L (17-59); Bilirubin,Total 0.5 mg/dL (0.2-1.3); Blood Urea Nitrogen 54 mg/dL (9-20); Calcium 9.4 mg/dL (8.4-10.2); Carbon Dioxide 26 mmol/L (22-30); Chloride 101 mmol/L (98-107); Estimated CRCL calculation 23 ml/min; Estimated Glomerular Filt Rate 32; Glucose 101 mg/dL (65-110); Sodium 138 mmol/L (137-145); Total Protein 6.1 g/dL (6.3-8.2)
[2025-02-23 05:59] LABS: Band Neutrophils Percent 0 % (0-6); Platelet Estimate Increased (Adequate)
[2025-02-23 06:00] LABS: Anisocytosis 1+; Ovalocytes 1+; Schistocytes None Seen
[2025-02-23 07:22] LABS: Alpha-1-Antitrypsin, QN. 188 mg/dL (83-199)
[2025-02-23] MEDS: SODIUM CHLORIDE 0.9% IV 1,000 ML 100 ML IV CONT (08:00)
--- NOTE | 2025-02-23 08:11 | P.PNIM_ITS ---
Progress Note: A&P Assessment and Plan (1) Pneumonia: Code(s): J18.9 - Pneumonia, unspecified organism Status: Acute Assessment and Plan: CXR: Questionable minimal pleural effusions with mild bibasilar atelectatic change. Chest CT: * Findings suggesting prior granulomatous disease. Panlobular emphysematous disease. * Interval development of bibasilar centrilobular nodularity with associated groundglass and part solid opacification, left greater than right. * No air bronchograms are identified within this opacification to suggest the presence of an infiltrate. * No pleural effusions. * Underlying COPD. - started on CAP tx: Doxy & ceftriaxone - Viral PCR: negative for Flu/COVID/RSV - Legionella, mycoplasma and pneumococcal pending - no supplemental O2 requirement - supportive treatment - Monitor vital signs, I&Os, neuro status and patient is a fall risk - Follow WBC, serum electrolytes, temperature curves and cultures - stable, improving - lung wilks clear to auscultation (2) Impaired respiratory function due to exposure to chemical: Code(s): J68.9 - Unspecified respiratory condition due to chemicals, gases, fumes and vapors Status: Acute Assessment and Plan: * Exposure to new housing insulation installed last fall * Steroids and albuterol d/c * continue Ipratropium * Physical exam reassuring * Continue close monitoring (3) Acute exacerbation of emphysema: Code(s): J44.1 - Chronic obstructive pulmonary disease with (acute) exacerbation; J43.9 - Emphysema, unspecified Status: Acute Assessment and Plan: * Reviewed ABG * Currently on 3 L nasal cannula with no respiratory distress * Chest x-ray shows: Questionable minimal pleural effusions with mild bibasilar atelectatic change.Underlying COPD. * Chest CT: * Findings suggesting prior granulomatous disease. Panlobular emphysematous disease. * Interval development of bibasilar centrilobular nodularity with associated groundglass and part solid opacification, left greater than right. * No air bronchograms are identified within this opacification to suggest the presence of an infiltrate. No PE * Viral panel negative * Monitor vitals/culture * Started on ceftriaxone and doxycycline * Pulmonology consult, pending recommendations * Less likely COPD exacerbation, symptoms more likely 2/2 chemical exposure/pneumonia * Steroids d/c * Continue Duoneb q6h * Physical exam benign, lung wilks clear to auscultation (4) Chronic kidney disease, stage 3a: Code(s): N18.31 - Chronic kidney disease, stage 3a Status: Acute Assessment and Plan: -monitor closely during diuresis -Avoid nephrotoxic drugs. -Monitor antihypertensive drug therapy. -Avoid NSAIDs. -Routine CMP monitoring GFR. -Monitor electrolytes especially potassium. -Antibiotic doses depending on creatinine clearance. -Pharmacy does medications. -Cr stable 1.5 appears at baseline -Routine follow-up with Dr. Adams as an outpatient. -02/22, Cr 1.57, GFR 43 ( baseline appear to be around 1.3-1.6 for Cr and 24-49 for GFR) (5) Type 2 diabetes mellitus with other diabetic kidney complication: Code(s): E11.29 - Type 2 diabetes mellitus with other diabetic kidney complication Status: Chronic Assessment and Plan: * Started on low-dose sliding scale * Hypoglycemia protocol * Will titrate insulin as needed (6) LOPEZ (obstructive sleep apnea): Code(s): G47.33 - Obstructive sleep apnea (adult) (pediatric) Status: Chronic Assessment and Plan: * Ordered apnea study (7) Leg swelling: Code(s): M79.89 - Other specified soft tissue disorders Status: Acute Assessment and Plan: * In ED, BNP 672 * Started Lasix 40 mg IV q.d. * Will continue to monitor closely, I&Os * Echocardiogram * EF 65-70%, normal dimension * G1DD * 02/21, BNP 2540 * Continue daily Lasix * No evidence of fluid overload exam (8) Hypertensive heart disease without heart failure: Code(s): I11.9 - Hypertensive heart disease without heart failure Status: Chronic Assessment and Plan: * BPs ranging 150s/60s to 190s/70s * Also has been found to be intermittently tachycardic * EKG shows sinus tachycardia, no arrhythmia * Cardio consulted * Tachycardic like 2/2 to underlying COPD/Pneumonia * chronic HTN not ideal but consistent with outpt readings * The addition of another b-irais would likely not be tolerated well * Closely monitor sx Plan DVT prophylaxis: Lovenox 40 mg subcutaneous daily Core status: Full code Subjective Date/time seen: 02/23/25 08:11 Interval history: 84-year-old male with the past medical history of coronary artery disease, renal artery stenosis, hypertension, hyperlipidemia, emphysema presented to the ED due to shortness of breath and cough. 02/23/2025 Patient sitting comfortably in bed at time of examination. Denies any chest pain, shortness a breath, nausea or vomiting, or abdominal pain at this time. Pulmonology continues to follow, agreed that patient's clinical picture is improving. Will do a home O2 eval and walking pulse ox. Likely plan for discharge tomorrow with continued antibiotic coverage for pneumonia. He also states that he will be put up in a motel in the meantime until his apartment can be cleared of the insulation that was installed which caused his chemical exposure. Otherwise no complaints or concerns at this time. Heart rate remains in the 90s. Review of Systems Review of Systems: As reviewed above in HPI Exam Narrative: GENERAL: not any acute physical distress, healthy appearing. no respiratory distress. HEAD: [Normocephalic, atraumatic.] EYES: [PERRLA and EOMI.] ENT: Nares clear, no rhinorrhea or epistaxis. Mucous membranes moist. NECK: Supple. CHEST: Normal resp effort, no wheezing, rhonchi, crackles HEART: [Regular rate and rhythm]. No murmur heard. [Normal peripheral pulses.] ABDOMEN: [Soft, nondistended], [nontender], [No rigidity or guarding] EXTREMITIES: Normal range of motion. [No edema.] SKIN: Warm, dry, no rash. NEURO: [No focal deficits]. Alert and oriented [x3.] PSYCH: [Normal mood and affect.] Objective Data Vital Signs Vital Signs: Vital Signs - 24 hr 02/22/25 08:15 02/22/25 08:15 02/22/25 08:23 Temperature Pulse Rate 112 H 111 H Respiratory Rate 20 20 Blood Pressure Pulse Oximetry 93 Oxygen Delivery Nasal Cannula Oxygen Flow Rate 3 02/22/25 08:35 02/22/25 12:00 02/22/25 13:10 Temperature Pulse Rate 93 102 H Respiratory Rate 16 Blood Pressure Pulse Oximetry Oxygen Delivery Nasal Cannula Oxygen Flow Rate 3 02/22/25 13:16 02/22/25 14:00 02/22/25 16:00 Temperature 97.7 F Pulse Rate 106 H 96 92 Respiratory Rate 16 18 Blood Pressure 130/60 Pulse Oximetry 100 Oxygen Delivery Oxygen Flow Rate 02/22/25 20:00 02/22/25 20:00 02/22/25 20:23 Temperature 97.8 F Pulse Rate 101 H 94 Respiratory Rate 16 Blood Pressure 135/83 Pulse Oximetry 93 93 Oxygen Delivery Nasal Cannula Oxygen Flow Rate 2 02/22/25 20:34 02/22/25 20:35 02/22/25 20:42 Temperature Pulse Rate 102 H 102 H 100 Respiratory Rate 16 16 16 Blood Pressure Pulse Oximetry 97 Oxygen Delivery Nasal Cannula Oxygen Flow Rate 3 02/23/25 00:00 02/23/25 02:29 02/23/25 04:00 Temperature Pulse Rate 78 83 93 Respiratory Rate 18 Blood Pressure Pulse Oximetry Oxygen Delivery Oxygen Flow Rate 02/23/25 05:08 Temperature 98.3 F Pulse Rate 100 Respiratory Rate 16 Blood Pressure 183/82 H Pulse Oximetry 95 Oxygen Delivery Oxygen Flow Rate Intake/Output Intake/Output: Intake & Output 02/20/25 02/21/25 02/22/25 02/23/25 23:59 23:59 23:59 23:59 Intake Total 1170 1720 1670 300 Output Total 2025 3500 1400 600 Balance -855 -1780 270 -300 Meds/Results Medications: Active Medications Generic Name Dose Route Start Last Admin Trade Name Freq PRN Reason Stop Dose Admin Acetaminophen 650 mg 02/20/25 06:42 Acetaminophen 325 Mg Tablet PO Q4H PRN Mild Pain (1-3) or Fever Aspirin 81 mg 02/21/25 09:00 02/22/25 08:35 Aspirin 81 Mg Enteric Tablet PO 81 mg DAILY CHAPARRO Administration Atorvastatin Calcium 40 mg 02/20/25 10:30 02/22/25 08:34 Atorvastatin 40 Mg Tablet PO 40 mg DAILY CH[facility]ARRO Administration Cephalexin HCl 500 mg 02/22/25 00:00 02/22/25 22:46 Cephalexin 500 Mg Capsule PO 500 mg Q8H CH[facility]ARRO Administration Chlorthalidone 25 mg 02/21/25 09:00 02/22/25 08:35 Chlorthalidone 25 Mg Tablet PO 25 mg DAILY CHAPARRO Administration Clonidine HCl 0.2 mg 02/20/25 21:00 02/22/25 20:21 Clonidine Hcl 0.2 Mg Tablet PO 0.2 mg Q12HR CH[facility]ARRO Administration Clonidine HCl 0.1 mg 02/20/25 15:00 02/22/25 14:52 Clonidine Hcl 0.1 Mg Tablet PO 0.1 mg DAILY@1500 CHAPARRO Administration Dextrose 12.5 gm 02/20/25 16:32 Dextrose 50% 25 Gm/50 Ml Syringe IV PUSH PRN PRN Hypoglycemia Protocol Doxycycline Hyclate 100 mg 02/22/25 10:00 02/22/25 20:20 Doxycycline Hyclate 100 Mg Tablet PO 100 mg Q12H [facility]O Administration Enoxaparin Sodium 40 mg 02/21/25 09:00 02/22/25 08:37 Enoxaparin 40 Mg/0.4 Ml Syringe SUB-Q 40 mg DAILY CH[facility]ARRO Administration Furosemide 40 mg 02/22/25 09:00 02/22/25 11:03 Furosemide 40 Mg Tablet PO 40 mg DAILY CH[facility]ARRO Administration Gabapentin 100 mg 02/20/25 13:00 02/22/25 17:01 Gabapentin 100 Mg Capsule PO 100 mg TID CH[facility]O Administration Glucagon 1 mg 02/20/25 16:32 Glucagon For Inj 1 Mg Vial IM PRN PRN Hypoglycemia Protocol Glucose 15 gm 02/20/25 16:32 Glucose Oral Gel 15 Gm Of Glucse In 37.5 Gm Tube PO PRN PRN Hypoglycemia Protocol Guaifenesin 1,200 mg 02/21/25 21:00 02/22/25 20:20 Guaifenesin 12 Hr 600 Mg Tabcr PO 1,200 mg Q12HR [facility]O Administration Hydralazine HCl 10 mg 02/21/25 06:05 02/21/25 06:25 Hydralazine Hcl 20 Mg/Ml Vial IV PUSH 10 mg Q4H PRN Administration Blood Pressure - High Dextrose 1,000 mls @ 100 mls/hr 02/20/25 16:32 Dextrose 5% 1,000 Ml IVPB PRN PRN Hypoglycemia Protocol Sodium Chloride 1,000 mls @ 100 mls/hr 02/23/25 07:25 02/23/25 08:00 Normal Saline Iv IV CONT 02/23/25 17:24 100 mls/hr .Q10H ONE Administration Insulin Aspart 2 - 5 units 02/20/25 17:00 02/22/25 17:27 Insulin Aspart (*Bkc) 100 Units/Ml SUB-Q Not Given TIDWM [facility]O Protocol Insulin Aspart 1 - 2 units 02/20/25 21:00 02/22/25 20:21 Insulin Aspart (*Bkc) 100 Units/Ml SUB-Q Not Given HS [facility]O Protocol Ipratropium [place] 0.5 mg 02/21/25 14:00 02/23/25 02:28 Ipratropium Br 0.02% Inh Soln 0.5 Mg/2.5 Ml Vial INHALATION 0.5 mg Q6HRT [facility]O Administration Irbesartan 300 mg 02/20/25 10:30 02/22/25 08:35 Irbesartan 150 Mg Tablet PO 300 mg DAILY [facility]O Administration Lorazepam 0.5 mg 02/20/25 10:26 02/22/25 20:21 Lorazepam (*Crx) 0.5 Mg Tablet PO 0.5 mg BID PRN Administration anxiety Nifedipine 90 mg 02/20/25 10:30 02/22/25 08:35 Nifedipine 30 Mg Tab.Er.24 PO 90 mg DAILY [facility]O Administration Pantoprazole Sodium 40 mg 02/20/25 10:30 02/22/25 20:20 Pantoprazole 40 Mg Tablet PO 40 mg Q12HR [facility] Administration Perflutren Lipid Microsphere 0 ml 02/20/25 12:19 Perflutren Lipid Microspheres 1.5 Ml Vial Diluted To 10 Ml Total Volume IV PUSH 02/23/25 12:19 ONCE PRN adequate visualization Protocol Polyethylene Glycol 17 gm 02/22/25 10:06 02/22/25 11:03 Polyethylene Glycol 3350 17 Gm Powd.Pack PO 17 gm QAM PRN Administration Constipation Tamsulosin HCl 0.4 mg 02/21/25 09:00 02/22/25 08:34 Tamsulosin Hcl 0.4 Mg Capsule PO 0.4 mg DAILY [facility]O Administration Radiology Results: ITS Impressions Chest X-Ray 02/20/25 05:50 Impression: Questionable minimal pleural effusions with mild bibasilar atelectatic change. Underlying COPD. Chest CT 02/20/25 17:51 IMPRESSION: Findings suggesting prior granulomatous disease. Panlobular emphysematous disease. Interval development of bibasilar centrilobular nodularity with associated groundglass and part solid opacification, left greater than right. No air bronchograms are identified within this opacification to suggest the presence of an infiltrate. No pleural effusions. Labs Labs: Laboratory Results - last 24 hr 02/22/25 02/22/25 02/22/25 05:00 05:10 11:54 WBC 17.2 H RBC 6.01 Hgb 13.4 L Hct 45.4 MCV 75.5 L MCH 22.3 L MCHC 29.5 L RDW 21.0 H Plt Count 571 H MPV 9.9 Immature Gran % (Auto) 0.7 H Neut % (Auto) 78.7 H Lymph % (Auto) 13.4 L [place] % (Auto) 6.8 Eos % (Auto) 0.2 Baso % (Auto) 0.2 Lymph # (Auto) 2.30 [place] # (Auto) 1.2 H Eos # (Auto) 0.0 Baso # (Auto) 0.0 Abs Immat Gran (auto) 0.12 H Absolute Neuts (auto) 13.5 H Absolute Nucleated RBC 0.000 Band Neutrophils % Not Reportable Nucleated RBC % 0.0 Platelet Estimate Increased Anisocytosis Ovalocytes Schistocytes None seen Sodium 138 Potassium 3.7 Chloride 101 Carbon Dioxide 27 Anion Gap 10 BUN 37 H D Creatinine 1.57 H Estim Creat Clear Calc 29 Estimated GFR 43 L Glucose 103 POC Capillary Glucose 154 H Calcium 9.6 Total Bilirubin 0.8 AST 40 ALT 24 Alkaline Phosphatase 78 Total Protein 6.6 Albumin 3.6 [id number] 188 02/22/25 02/22/25 02/23/25 17:08 20:21 04:34 WBC 11.4 H RBC 5.83 Hgb 13.1 L Hct 44.0 MCV 75.5 L MCH 22.5 L MCHC 29.8 L RDW 20.6 H Plt Count 474 H MPV 9.7 Immature Gran % (Auto) 0.7 H Neut % (Auto) 73.6 H Lymph % (Auto) 14.8 L [place] % (Auto) 9.2 H Eos % (Auto) 1.2 Baso % (Auto) 0.5 Lymph # (Auto) 1.68 [place] # (Auto) 1.0 H Eos # (Auto) 0.1 Baso # (Auto) 0.1 Abs Immat Gran (auto) 0.08 H Absolute Neuts (auto) 8.4 H Absolute Nucleated RBC 0.000 Band Neutrophils % 0 Nucleated RBC % 0.0 Platelet Estimate Increased Anisocytosis 1+ Ovalocytes 1+ Schistocytes None seen Sodium 138 Potassium 4.0 Chloride 101 Carbon Dioxide 26 Anion Gap 11 BUN 54 H D Creatinine 2.01 H Estim Creat Clear Calc 23 Estimated GFR 32 L Glucose 101 POC Capillary Glucose 139 H 154 H Calcium 9.4 Total Bilirubin 0.5 AST 22 ALT 21 Alkaline Phosphatase 73 Total Protein 6.1 L Albumin 3.4 L [id number] Quality VTE Prophylaxis VTE prophylaxis: pharmacologic ordered
[2025-02-23 08:19] LABS: Glucose Point of Care 130 mg/dl (65-105)
[2025-02-23] MEDS: CEPHALEXIN 500 MG CAPSULE PO ×2 (08:51→17:04)
[2025-02-23] MEDS: PANTOPRAZOLE 40 MG TABLET PO ×2 (08:51→20:52)
[2025-02-23] MEDS: ASPIRIN 81 MG ENTERIC TABLET PO (08:51)
[2025-02-23] MEDS: IRBESARTAN 150 MG TABLET 300 MG PO (08:51)
[2025-02-23] MEDS: ENOXAPARIN 40 MG/0.4 ML SYRINGE SUB-Q (08:52)
[2025-02-23] MEDS: guaiFENesin 12 HR 600 MG TABCR 1200 MG PO ×2 (08:52→20:52)
[2025-02-23] MEDS: ATORVASTATIN 40 MG TABLET PO (08:52)
[2025-02-23] MEDS: GABAPENTIN 100 MG CAPSULE PO ×3 (08:52→17:04)
[2025-02-23] MEDS: TAMSULOSIN HCL 0.4 MG CAPSULE PO (08:52)
[2025-02-23] MEDS: FUROSEMIDE 40 MG TABLET PO (08:52)
[2025-02-23] MEDS: LORazepam (*CRX) 0.5 MG TABLET PO ×2 (08:52→20:52)
[2025-02-23] MEDS: CHLORTHALIDONE 25 MG TABLET PO (08:52)
[2025-02-23] MEDS: NIFEdipine 30 MG TAB.ER.24 90 MG PO (08:52)
[2025-02-23] MEDS: cloNIDine HCL 0.2 MG TABLET PO ×2 (08:52→20:52)
[2025-02-23] MEDS: DOXYCYCLINE HYCLATE 100 MG TABLET PO ×2 (10:29→20:52)
[2025-02-23 12:30] LABS: Glucose Point of Care 146 mg/dl (65-105)
[2025-02-23] MEDS: cloNIDine HCL 0.1 MG TABLET PO (14:03)
--- NOTE | 2025-02-23 14:31 | P.PNPL_ITS ---
Progress Note: A&P Assessment and Plan (1) Pneumonia: Code(s): J18.9 - Pneumonia, unspecified organism Status: Acute Assessment and Plan: Patient has had continued worsening cough without dyspnea on exertion since then. He presents on 02/20/2025 with cough, shortness of breath, wheezes and a CT scan that shows new left lower lobe consolidation and right lower lobe nodular infiltrate since 02/10/2025. 02/21/2025: Plan: Patient currently afebrile. Leukocytosis has improved to 12. Procalcitonin is 0.1. Continue ceftriaxone and doxycycline, both started on 02/20/2025, day 2. I will send a COVID, influenza, RSV RT PCR assay. Respiratory pathogen panel, urine Legionella, urine pneumococcal antigen and serum mycoplasma IgM are pending. Goal saturation 90-94%. Currently is on room air. Discussed with Dr. Helton, will follow with you. 02/22/25; overall better, less green sputum, cough and shortness of breath. 02/23/25; improved, no sputum or cough, on Room Air, symptoms have resolved being away from his apartment where he was exposed to Polyform sprayed by [facility]. (2) Impaired respiratory function due to exposure to chemical: Code(s): J68.9 - Unspecified respiratory condition due to chemicals, gases, fumes and vapors Status: Acute Assessment and Plan: The patient had his house crawls space sealed With a poly foam by the [facility] department in the fall of 2023. He had no respiratory issues until once the weather heated up this spring and he developed a dry cough which was worsened when he is in his house and is resolved when he leaves his house. On 02/07/2025 the medicine housing department applied a 2nd coat and he sought medical attention for dry cough, shortness of breath and congestion on 02/10/2025. He again improved when he left the house. His brother drove him home and was in the house for 30 minutes and developed burning eyes and tearing eyes which resolved 10 minutes after he left the house. Patient has had continued worsening cough without dyspnea on exertion since then. He presents on 02/20/2025 with cough, shortness of breath, wheezes and a CT scan that shows new left lower lobe consolidation and right lower lobe nodular infiltrate since 02/10/2025. 02/21/25: Currently the patient states that his cough is gone, he has no shortness of breath at rest or with walking to the bathroom. When I enter the room he was on 3 L nasal cannula saturations 95%. I decreased him to room air and after 21 minutes his saturations were 93%. patient is afebrile. White blood cell count 14.0, creatinine 1.50, BNP 2540, procalcitonin 0.1. Plan: On 02/19/2025 the [facility] department came and placed vents in his crawl space to vent the air to the outside. They are supposed to return on 02/21/2025 to make these vents larger. His son who I spoke with his at the house and I have told the son to go into the house to see if he has any development of new symptoms. I talked to the son for 5 minutes while he was in the house and he had developed no symptoms and I told the son if he develops the slightest of symptoms including watering eyes, itchy eyes, burning nose, chemical taste in the mouth, shortness of breath, cough, wheezing that he should leave the house immediately and document how long he was in the house until he develops symptoms. Currently the patient is not wheezing and I will discontinue systemic steroids. Patient is tachycardic and I will discontinue albuterol and continue ipratropium. 02/22/25; He is less symptomatic, less coughing and shortness of breath. He has not heard from the [facility] Dept, knows that work was being done. He will need air purifiers in his home at discharge. 0 . (3) COPD (chronic obstructive pulmonary disease): Code(s): J44.9 - Chronic obstructive pulmonary disease, unspecified Status: Acute Assessment and Plan: GOLD grade 2 group B COPD Regarding his COPD, the patient has a history of tobacco use from 1955 to 2006 at 2 packs per day for a total of 104 pack years, he was exposed to secondhand smoke from his until 2013, he has no other occupational exposures. PFTs from 12/23/2021 with a moderate obstructive abnormality been FEV1 of 1.60 L, 65% predicted, ratio 50%, positive bronchodilator response, normal lung volumes and a mildly decreased DLCO that remains mildly decreased when adjusted for alveolar volume. For CT scan in our system from 10/19/2008 shows mild apical predominant centrilobular emphysema. CT scan of the chest on 06/01/2017 with mild to moderate apical predominant centrilobular emphysema and CT scan of the chest on 02/10/2025 and 02/20/2025 shows moderate apical predominant centrilobular emphysema. 3 years ago the patient tells me he could walk 5 miles. One year ago the patient tells me he can walk 3 miles and he gets tired but does not complain of dyspnea on exertion. Three weeks ago the patient tells me he could walk to miles and has no breathing limitations but would get tired. Chronically he denies cough, phlegm or hemoptysis. White blood cell count 9.4, eosinophils 3.6% equal 338 per micro L 02/21/2025: I am not convinced the patient is having an active COPD it exacerbation at this time. It sounds more like a combination of chemical exposure and/or pneumonia. Plan: I will discontinue systemic steroids at this time. Patient has sinus tachycardia at this time and I will discontinue his albuterol. I will place him on ipratropium nebulizers q.6 hours. Treat for for pneumonia as above. 02/22/25; he feels better, less coughing, less short of breath, able to get up to walk to bathroom with less problem today. He is on 3 L/min, sat 93-100%. Overall improved. 02/23/25; improved, on Room AIr, no cough or sputum. (4) LOPEZ (obstructive sleep apnea): Code(s): G47.33 - Obstructive sleep apnea (adult) (pediatric) Status: Chronic Assessment and Plan: Regarding his obstructive sleep apnea, patient had a split night sleep study on 01/29/2008 with BMI of 31.1 and an [place] score of 10 with moderate sleep apnea with an AHI of 13.8. adequate titration to CPAP 14 with correction of respiratory events. Patient was set up with CPAP machine and wore full face mask for about a year and then the machine broke and it was expensive and he discontinue the use of this machine. 02/21/2025. The patient tells me he is not interested in wearing a CPAP machine at home. plan: I will perform overnight oximetry on room air after the patient has improved to assess nocturnal hypoxemia. Plan He plans to go to [facility] at discharge, will stay until his apartment is without fumes. Subjective Date/time seen: 02/23/25 14:31 Interval history: 02/21/2025: This is a new pulmonary consult for COPD exacerbation. 84-year-old with a history of COPD, untrated LOPEZ, diabetes with neuropathy, coronary artery disease status post stent x3, peripheral vascular disease with renal artery stenosis, hypertension, CKD, GERD, hyperlipidemia, history of TIA status post right endarterectomy and history of colon cancer. Regarding his COPD, The patient tells me he does not have COPD and has never been diagnosed with COPD. However, the patient has a history of tobacco use from [id number] at 2 packs per day for a total of 104 pack years, he was exposed to secondhand smoke from his until 2013, he has no other occupational exposures. PFTs from 12/23/2021 with a moderate obstructive abnormality, positive bronchodilator response, normal lung volumes and a mildly decreased DLCO that remains mildly decreased when adjusted for alveolar volume. For CT scan in our system from 10/19/2008 shows mild apical predominant centrilobular emphysema. CT scan of the chest on 06/01/2017 with mild to moderate apical predominant centrilobular emphysema and CT scan of the chest on 02/10/2025 and 02/20/2025 shows moderate apical predominant centrilobular emphysema. 3 years ago the patient tells me he could walk 5 miles. One year ago the patient tells me he can walk 3 miles and he gets tired but does not complain of dyspnea on exertion. Three weeks ago the patient tells me he could walk to miles and has no breathing limitations but would get tired. Chronically he denies cough, phlegm or hemoptysis. Regarding his obstructive sleep apnea, patient had a split night sleep study on 01/29/2008 with BMI of 31.1 and an [place] score of 10 with moderate sleep apnea with an AHI of 13.8. adequate titration to CPAP 14 with correction of respiratory events. Patient was set up with CPAP machine and wore full face mask for about a year and then the machine broke and it was expensive and he discontinue the use of this machine. Last fall the medicine housing department sealed his crawl space with poly foam material. The patient had no respiratory issues throughout the winter or spring months. Patient was in his usual state of health with no respiratory limitations in his activities of daily living. When the weather started getting warm he noticed that he developed a dry cough while he was in the house that would clear when he left the house. He denied fever, chills, rigors, phlegm production or hemoptysis. The department then came to his house and put a 2nd coating of the poly foam into his crawl space on approximately . patient's coughing progressed and he went to the emergency department on 02/10/2025 with cough, nasal congestion, wheezing and yellow phlegm. He had also gained 15 lb of edema in the last month. His room air saturations were 91-92. White blood cell count 9.4, eosinophils 3.6% equal 338 per micro L. He had a CT angiogram of the chest that was negative for PE with no focal infiltrates. does not appear he was sent home on any medicines. Diagnosis bronchitis. His brother drove him home and they went in the house and after 30 minutes the brother noticed that his eyes begin to burn and he started to cry. He left the house and his brother told him later that after 10 minutes of leaving the house his eyes stopped burning. Patient had continued coughing without dyspnea on exertion, shortness of breath, phlegm production. He saw his PCP on 02/17 who stated he had been short of breath for 4 days, increase edema and a prednisone taper was prescribed. The patient took this prednisone taper but noticed no improvement. On 02/19/2025 the medicine department came out and opened up outside ventilation in to his crawl space. And the plan was for them to come back on 02/21/2025 to make the vents larger. 02/20/2025: Patient presented to the emergency room with cough, blood pressure 207/64, heart rate 88, room air saturations 95%, then placed on 3 L with saturation 93%. White blood cell count 14.0, creatinine 1.50, BNP 672, ABG on 3 L 7.48/38/47. Patient had a CT scan of the chest that showed moderate apical predominant centrilobular emphysema, new left lower lobe consolidation and right lower lobe nodular infiltrate compared to 02/10/2025. Patient was started on ceftriaxone, doxycycline, Solu-Medrol and DuoNebs. 02/21/25: Currently the patient states that his cough is gone, he has no shortness of breath at rest or with walking to the bathroom. When I enter the room he was on 3 L nasal cannula saturations 95%. I decreased him to room air and after 21 minutes his saturations were 93%. patient is afebrile. White blood cell count 14.0, creatinine 1.50, BNP 2540, procalcitonin 0.1. 02/22/25; sitting up in the chair, better, less cough, sputum, shortness of breath, able to walk to the BR with less effort. He is on 3 L/min, saturation 93-100%. WBC up, 17.2, BUN 37, creat 1.57. 02/23/25; He is on room air, feels much better. He is planning to go to a motel which is being provided by [facility], and he will stay there until; his home is stable for his return. He has no cough, no sputum, and he is able to ambulate without shortness of breath. DATA: 02/20/25: CLINICAL INDICATION: Shortness of breath and worsening cough COMPARISON: 02/10/2025. Reference is also made to plain film evaluations of the chest performed 02/20/2025 and dating back to 08/23/2023. TECHNIQUE: Multiple contiguous axial images of the chest was performed without the administration of intravenous contrast. This CT examination was performed utilizing dose reduction techniques. DLP: 337 mGy-cm FINDINGS/OBSERVATIONS: LUNG: Panlobular emphysematous disease. Bibasilar centrilobular nodularity with associated part solid opacification, left greater than right. No significant pleural effusion. Trace bibasilar bronchiectasis, right greater than left. Calcified nodules within the bilateral lung bases suggesting prior granulomatous disease. HEART: The heart is of normal size, without pericardial effusion. Aortic and mitral valve calcifications. MEDIASTINUM: Calcified lymph nodes within the bilateral jossie and subcarinal lymph node station suggesting prior granulomatous disease. Limited evaluation of noncalcified lymph nodes secondary to the lack of intravenous contrast. SOFT TISSUES OF THE CHEST: Unremarkable. BONES OF THE CHEST: No acute fracture. No lytic or blastic lesions are identified. UPPER ABDOMEN: Small hiatal hernia. Fatty atrophy of the pancreas. Punctate calcifications identified within the splenic parenchyma, suggesting prior granulomatous disease. IMPRESSION: Findings suggesting prior granulomatous disease. Panlobular emphysematous disease. Interval development of bibasilar centrilobular nodularity with associated groundglass and part solid opacification, left greater than right. No air bronchograms are identified within this opacification to suggest the presence of an infiltrate. No pleural effusions. 02/20/2025: Summary 1. Complete two-dimensional, color flow and Doppler transthoracic echocardiogram is performed. 2. Left ventricular chamber dimension is normal. 3. Left ventricular systolic function is normal, estimated at 65-70. 4. The left ventricular diastolic function is grade I diastolic dysfunction. 5. E/e' 12 is mildly elevated. 6. The aortic valve is not well visualized. Cannot determine number of aortic valve leaflets. Right Ventricle Right ventricular chamber dimension is normal. Right ventricular systolic function is normal and with normal TAPSE 2.2 cm. Right Atria Right atrial chamber dimension is normal. Tricuspid Valve There is no tricuspid valve regurgitation. No RVSP calculated. 02/10/25:Clinical Indication: Shortness of breath CT Scan of the Chest with Contrast: Technique: Contiguous sections were acquired throughout the chest after intravenous administration of 100 cc of Omnipaque 350. Dose reduction technique was used on this scan by utilizing automated exposure control and iterative reconstruction technique. The dose-length product (DLP) was 645.88 mGy-cm. Findings: There is no evidence of any significant mediastinal, hilar or axillary lymphadenopathy. There is no filling defect in the pulmonary arterial tree to suggest pulmonary embolus. There is no evidence of aortic dissection or aneurysm. There is no evidence of pleural or pericardial effusion. Moderate to advanced emphysema noted. Calcified right basilar granulomas are present. Images through the upper abdomen reveal no abnormalities. Impression: No evidence of pulmonary embolus, aortic dissection, or aortic aneurysm. Moderate to advanced emphysema. 12/23/2021: This is a pulmonary function test with pre and post-bronchodilator spirometry, plethysmography and diffusing capacity. The test was performed and results interpreted in accordance with the 2019 and 2005 ATS/ERS Task Force guidelines respectively using the Global Lung Function Initiative-2012 reference equations. Patient demonstrated good effort and cooperation. Reproducibility criteria were met. The quality of the pre bronchodilator spirometry maneuver was Grade A and post bronchodilator spirometry maneuver was Grade A. Findings: Spirometry: There is decreased maximal expiratory airflow at all lung volumes with a concave expiratory flow tracing. The contour the inspiratory flow tracing is normal. The pre bronchodilator FVC is 3.23 L, 99% predicted. The pr e bronchodilator FEV1 is 1.60 L, 65% predicted. The pre bronchodilator FEV1: FVC ratio is 50%. The post bronchodilator FVC is 3.62 L, representing a 12% increase. The post bronchodilator FEV1 is 1.76 L, representing a 10% increase. The post bronchodilator FEV1: FVC ratio is 49%. Plethysmography: The total lung capacity is 7.47 L, 124% predicted. The functional residual capacity is 2.87 L, 89% predicted. The residual volume is 2.77 L, 117% predicted. Diffusing capacity: The diffusing capacity unadjusted for hemoglobin and carboxyhemoglobin is 13.3, 61% predicted. The diffusing capacity adjusted for alveolar volume is 2.60, 66% predicted. Impression: There is a moderate obstructive abnormality. There is significant improvement after inhaling a single dose of albuterol. The lung volumes are normal. The diffusing capacity unadjusted for hemoglobin and carboxyhemoglobin is mildly decreased and remains mildly decreased when adjusted for alveolar volume. There are no prior studies for comparison 01/29/2008: split night sleep study DIAGNOSTIC IMPRESSION: Moderate obstructive sleep apnea with an AHI of 13.8 associated with significant oxygen desaturations and heavy snoring. Adequate titration to 14cm of water C-pap was noted with correction of respiratory events. Snoring was also significantly controlled at that level as well. REM was achieved. In all sleep architecture improved significantly with C-pap titration with all stages of sleep being represented. Would recommend C-pap 14cm of water with a large Quattro full face mask with a ramp time of 10 minutes and a heated humidifier for added comfort. Review of Systems Review of Systems: All systems reviewed & are unremarkable except as noted in HPI and below Exam Const: General: cooperative, healthy appearing and comfortable Orientation/consciousness: oriented to person, oriented to place and oriented to time HENMT: Head: normal to inspection Ears: hearing grossly normal bilaterally Eyes: General: appearance normal, both eyes and all related structures Neck: Neck: normal visual inspection Chest: Chest palpation & inspection: normal inspection of the chest Resp: Effort & Inspection: normal respiratory effort and able to speak in complete sentences Auscultation: crackles, no rales, no rhonchi, no wheezes and lung sounds not diminished Other: Few crackles both bases, no wheezing. Cardio: Jugular venous distension: no JVD GI: Inspection: normal to inspection GI Palp: No abdominal tenderness Skin: General skin exam: normal color Neuro: General: oriented to person, oriented to place and oriented to time Extrem: General: normal to inspection and no edema Psych: Appearance: grossly normal Objective Data Vital Signs Vital Signs: Vital Signs - 24 hr 02/22/25 16:00 02/22/25 20:00 02/22/25 20:00 Temperature Pulse Rate 92 101 H Respiratory Rate Blood Pressure Pulse Oximetry 93 Oxygen Delivery Nasal Cannula Oxygen Flow Rate 2 02/22/25 20:23 02/22/25 20:34 02/22/25 20:35 Temperature 36.6 C Pulse Rate 94 102 H 102 H Respiratory Rate 16 16 16 Blood Pressure 135/83 Pulse Oximetry 93 97 Oxygen Delivery Nasal Cannula Oxygen Flow Rate 3 02/22/25 20:42 02/23/25 00:00 02/23/25 02:29 Temperature Pulse Rate 100 78 83 Respiratory Rate 16 18 Blood Pressure Pulse Oximetry Oxygen Delivery Oxygen Flow Rate 02/23/25 04:00 02/23/25 05:08 02/23/25 08:00 Temperature 36.8 C Pulse Rate 93 100 114 H Respiratory Rate 16 Blood Pressure 183/82 H Pulse Oximetry 95 Oxygen Delivery Oxygen Flow Rate 02/23/25 08:21 02/23/25 08:21 02/23/25 08:32 Temperature Pulse Rate 112 H 118 H Respiratory Rate 16 16 Blood Pressure Pulse Oximetry 91 Oxygen Delivery Room Air Oxygen Flow Rate 02/23/25 08:52 02/23/25 11:17 02/23/25 12:00 Temperature Pulse Rate 104 H Respiratory Rate Blood Pressure Pulse Oximetry 96 Oxygen Delivery Nasal Cannula Oxygen Flow Rate 3 02/23/25 13:52 02/23/25 14:00 Temperature Pulse Rate 101 H 102 H Respiratory Rate 16 16 Blood Pressure Pulse Oximetry Oxygen Delivery Oxygen Flow Rate Intake/Output Intake/Output: Intake & Output 02/20/25 02/21/25 02/22/25 02/23/25 23:59 23:59 23:59 23:59 Intake Total 1170 1720 1670 900 Output Total 2025 3500 1400 600 Balance -855 -1780 270 300 Meds/Results Medications: Active Medications Generic Name Dose Route Start Last Admin Trade Name Freq PRN Reason Stop Dose Admin Acetaminophen 650 mg 02/20/25 06:42 Acetaminophen 325 Mg Tablet PO Q4H PRN Mild Pain (1-3) or Fever Aspirin 81 mg 02/21/25 09:00 02/23/25 08:51 Aspirin 81 Mg Enteric Tablet PO 81 mg DAILY CHAPARRO Administration Atorvastatin Calcium 40 mg 02/20/25 10:30 02/23/25 08:52 Atorvastatin 40 Mg Tablet PO 40 mg DAILY CHAPARRO Administration Cephalexin HCl 500 mg 02/22/25 00:00 02/23/25 08:51 Cephalexin 500 Mg Capsule PO 500 mg Q8H CHAPARRO Administration Chlorthalidone 25 mg 02/21/25 09:00 02/23/25 08:52 Chlorthalidone 25 Mg Tablet PO 25 mg DAILY CHAPARRO Administration Clonidine HCl 0.2 mg 02/20/25 21:00 02/23/25 08:52 Clonidine Hcl 0.2 Mg Tablet PO 0.2 mg Q12HR CHAPARRO Administration Clonidine HCl 0.1 mg 02/20/25 15:00 02/23/25 14:03 Clonidine Hcl 0.1 Mg Tablet PO 0.1 mg DAILY@1500 CHAPARRO Administration Dextrose 12.5 gm 02/20/25 16:32 Dextrose 50% 25 Gm/50 Ml Syringe IV PUSH PRN PRN Hypoglycemia Protocol Doxycycline Hyclate 100 mg 02/22/25 10:00 02/23/25 10:29 Doxycycline Hyclate 100 Mg Tablet PO 100 mg Q12H CHAPARRO Administration Enoxaparin Sodium 40 mg 02/21/25 09:00 02/23/25 08:52 Enoxaparin 40 Mg/0.4 Ml Syringe SUB-Q 40 mg DAILY CHAPARRO Administration Furosemide 40 mg 02/22/25 09:00 02/23/25 08:52 Furosemide 40 Mg Tablet PO 40 mg DAILY CHAPARRO Administration Gabapentin 100 mg 02/20/25 13:00 02/23/25 14:03 Gabapentin 100 Mg Capsule PO 100 mg TID CHAPARRO Administration Glucagon 1 mg 02/20/25 16:32 Glucagon For Inj 1 Mg Vial IM PRN PRN Hypoglycemia Protocol Glucose 15 gm 02/20/25 16:32 Glucose Oral Gel 15 Gm Of Glucse In 37.5 Gm Tube PO PRN PRN Hypoglycemia Protocol Guaifenesin 1,200 mg 02/21/25 21:00 02/23/25 08:52 Guaifenesin 12 Hr 600 Mg Tabcr PO 1,200 mg Q12HR CHAPARRO Administration Hydralazine HCl 10 mg 02/21/25 06:05 02/21/25 06:25 Hydralazine Hcl 20 Mg/Ml Vial IV PUSH 10 mg Q4H PRN Administration Blood Pressure - High Dextrose 1,000 mls @ 100 mls/hr 02/20/25 16:32 Dextrose 5% 1,000 Ml IVPB PRN PRN Hypoglycemia Protocol Sodium Chloride 1,000 mls @ 100 mls/hr 06/22/25 07:25 02/23/25 08:00 Normal Saline Iv IV CONT 02/23/25 17:24 100 mls/hr .Q10H ONE Administration Insulin Aspart 2 - 5 units 02/20/25 17:00 02/23/25 12:55 Insulin Aspart (*Bkc) 100 Units/Ml SUB-Q Not Given TID[facility] Protocol Insulin Aspart 1 - 2 units 02/20/25 21:00 02/22/25 20:21 Insulin Aspart (*Bkc) 100 Units/Ml SUB-Q Not Given HS [facility] Protocol Ipratropium Mackay 0.5 mg 02/21/25 14:00 02/23/25 13:52 Ipratropium Br 0.02% Inh Soln 0.5 Mg/2.5 Ml Vial INHALATION 0.5 mg Q6HRT CHAPARRO Administration Irbesartan 300 mg 02/20/25 10:30 02/23/25 08:51 Irbesartan 150 Mg Tablet PO 300 mg DAILY CHAPARRO Administration Lorazepam 0.5 mg 02/20/25 10:26 02/23/25 08:52 Lorazepam (*Crx) 0.5 Mg Tablet PO 0.5 mg BID PRN Administration anxiety Nifedipine 90 mg 02/20/25 10:30 02/23/25 08:52 Nifedipine 30 Mg Tab.Er.24 PO 90 mg DAILY CHAPARRO Administration Pantoprazole Sodium 40 mg 02/20/25 10:30 02/23/25 08:51 Pantoprazole 40 Mg Tablet PO 40 mg Q12HR CHAPAROR Administration Polyethylene Glycol 17 gm 02/22/25 10:06 02/22/25 11:03 Polyethylene Glycol 3350 17 Gm Powd.Pack PO 17 gm QAM PRN Administration Constipation Tamsulosin HCl 0.4 mg 02/21/25 09:00 02/23/25 08:52 Tamsulosin Hcl 0.4 Mg Capsule PO 0.4 mg DAILY CHAPARRO Administration Radiology Results: ITS Impressions Chest X-Ray 02/20/25 05:50 Impression: Questionable minimal pleural effusions with mild bibasilar atelectatic change. Underlying COPD. Chest CT 02/20/25 17:51 IMPRESSION: Findings suggesting prior granulomatous disease. Panlobular emphysematous disease. Interval development of bibasilar centrilobular nodularity with associated groundglass and part solid opacification, left greater than right. No air bronchograms are identified within this opacification to suggest the presence of an infiltrate. No pleural effusions. Labs Labs: Laboratory Results - last 24 hr 02/22/25 02/22/25 02/22/25 05:10 17:08 20:21 WBC RBC Hgb Hct MCV MCH MCHC RDW Plt Count MPV Immature Gran % (Auto) Neut % (Auto) Lymph % (Auto) [place] % (Auto) Eos % (Auto) Baso % (Auto) Lymph # (Auto) [place] # (Auto) Eos # (Auto) Baso # (Auto) Abs Immat Gran (auto) Absolute Neuts (auto) Absolute Nucleated RBC Band Neutrophils % Nucleated RBC % Platelet Estimate Anisocytosis Ovalocytes Schistocytes Sodium Potassium Chloride Carbon Dioxide Anion Gap BUN Creatinine Estim Creat Clear Calc Estimated GFR Glucose POC Capillary Glucose 139 H 154 H Calcium Total Bilirubin AST ALT Alkaline Phosphatase Total Protein Albumin Piguc-[id number] 188 02/23/25 02/23/25 02/23/25 04:34 08:14 12:19 WBC 11.4 H RBC 5.83 Hgb 13.1 L Hct 44.0 MCV 75.5 L MCH 22.5 L MCHC 29.8 L RDW 20.6 H Plt Count 474 H MPV 9.7 Immature Gran % (Auto) 0.7 H Neut % (Auto) 73.6 H Lymph % (Auto) 14.8 L [place] % (Auto) 9.2 H Eos % (Auto) 1.2 Baso % (Auto) 0.5 Lymph # (Auto) 1.68 [place] # (Auto) 1.0 H Eos # (Auto) 0.1 Baso # (Auto) 0.1 Abs Immat Gran (auto) 0.08 H Absolute Neuts (auto) 8.4 H Absolute Nucleated RBC 0.000 Band Neutrophils % 0 Nucleated RBC % 0.0 Platelet Estimate Increased Anisocytosis 1+ Ovalocytes 1+ Schistocytes None seen Sodium 138 Potassium 4.0 Chloride 101 Carbon Dioxide 26 Anion Gap 11 BUN 54 H D Creatinine 2.01 H Estim Creat Clear Calc 23 Estimated GFR 32 L Glucose 101 POC Capillary Glucose 130 H 146 H Calcium 9.4 Total Bilirubin 0.5 AST 22 ALT 21 Alkaline Phosphatase 73 Total Protein 6.1 L Albumin 3.4 L [id number]
[2025-02-23 16:56] LABS: Glucose Point of Care 115 mg/dl (65-105)
[2025-02-23 20:44] LABS: Glucose Point of Care 161 mg/dl (65-105)
[2025-02-24] VITALS (11 sets, daily range): BP systolic 123–151; BP diastolic 62–77; PULSE 80–126; RESP 16–17; TEMP 36.2–36.9; O2SAT 90–95
[2025-02-24] MEDS: CEPHALEXIN 500 MG CAPSULE PO ×2 (00:05→08:02)
[2025-02-24] MEDS: IPRATROPIUM BR 0.02% INH SOLN 0.5 MG/2.5 ML VIAL INHALATION ×2 (02:08→09:24)
[2025-02-24 05:13] LABS: Basophils Absolute Auto 0.1 K/mm3 (0.0-0.1); Basophils Percent Auto 0.5 % (0.2-1.2); Eosinophils Absolute Auto 0.3 K/mm3 (0-0.3); Eosinophils Percent Auto 2.5 % (0-4.4); Hematocrit 43.2 % (42.0-52.0); Immature Granulocyte Absolute 0.08 K/mm3 (0.00-0.031); Immature Granulocyte Percent A 0.7 % (0-0.5); Lymphocytes Absolute Auto 1.89 K/mm3 (0.9-3.2); Lymphocytes Percent Auto 16.7 % (18.3-44.2); Mean Corpuscular HGB Conc 30.1 g/dl (32-36); Mean Corpuscular Hemoglobin 22.5 pg (26-34); Mean Corpuscular Volume 74.6 fl (80-100); Mean Platelet Volume 9.6 fl (7.4-10.4); Monocytes Percent Auto 8.5 % (2.6-8.5); Neutrophils Percent Auto 71.1 % (45.5-73.1); Platelet Count Result 448 k/mm3 (150-375); Red Blood Count 5.79 M/mm3 (4.6-6.20); Red Cell Distribution Width 20.1 % (11.5-14.5); White Blood Count 11.3 K/mm3 (4.5-10.0)
[2025-02-24 05:36] LABS: Alanine Aminotransferase 19 U/L (6-50); Albumin Level 3.3 g/dL (3.5-5.1); Alkaline Phosphatase 63 U/L (38-126); Anion Gap 6 mmol/L (4-12); Aspartate Amino Transferase 21 U/L (17-59); Bilirubin,Total 0.7 mg/dL (0.2-1.3); Blood Urea Nitrogen 50 mg/dL (9-20); Calcium 9.2 mg/dL (8.4-10.2); Carbon Dioxide 29 mmol/L (22-30); Chloride 101 mmol/L (98-107); Estimated CRCL calculation 27 ml/min; Estimated Glomerular Filt Rate 34; Glucose 129 mg/dL (65-110); Potassium 3.9 mmol/L (3.4-5.0); Sodium 136 mmol/L (137-145); Total Protein 5.9 g/dL (6.3-8.2)
[2025-02-24 05:40] LABS: Platelet Estimate Increased (Adequate)
[2025-02-24 05:41] LABS: Anisocytosis 1+; Poikilocytosis 1+
[2025-02-24 05:42] LABS: Acanthocytes 1+; Ovalocytes 1+; Schistocytes None Seen
[2025-02-24] MEDS: ASPIRIN 81 MG ENTERIC TABLET PO (08:02)
[2025-02-24] MEDS: CHLORTHALIDONE 25 MG TABLET PO (08:02)
[2025-02-24] MEDS: ATORVASTATIN 40 MG TABLET PO (08:02)
[2025-02-24] MEDS: cloNIDine HCL 0.2 MG TABLET PO (08:03)
[2025-02-24] MEDS: IRBESARTAN 150 MG TABLET 300 MG PO (08:03)
[2025-02-24] MEDS: NIFEdipine 30 MG TAB.ER.24 90 MG PO (08:03)
[2025-02-24] MEDS: FUROSEMIDE 40 MG TABLET PO (08:03)
[2025-02-24] MEDS: guaiFENesin 12 HR 600 MG TABCR 1200 MG PO (08:03)
[2025-02-24] MEDS: ENOXAPARIN 40 MG/0.4 ML SYRINGE SUB-Q (08:03)
[2025-02-24] MEDS: GABAPENTIN 100 MG CAPSULE PO ×2 (08:03→12:11)
[2025-02-24 08:04] LABS: Glucose Point of Care 169 mg/dl (65-105)
[2025-02-24] MEDS: TAMSULOSIN HCL 0.4 MG CAPSULE PO (08:04)
[2025-02-24] MEDS: PANTOPRAZOLE 40 MG TABLET PO (08:04)
[2025-02-24 08:34] LABS: NT Pro B Type Natriuretic Pept 414 pg/mL (19.9-100)
[2025-02-24 09:50] LABS: Procalcitonin 0.1 ng/mL
[2025-02-24] MEDS: DOXYCYCLINE HYCLATE 100 MG TABLET PO (09:57)
--- NOTE | 2025-02-24 11:40 | PM.PNPUL ---
Progress Note: A&P Assessment and Plan (1) Pneumonia: Code(s): J18.9 - Pneumonia, unspecified organism Status: Acute Assessment and Plan: Patient has had continued worsening cough without dyspnea on exertion since then. He presents on 02/20/2025 with cough, shortness of breath, wheezes and a CT scan that shows new left lower lobe consolidation and right lower lobe nodular infiltrate since 02/10/2025. 02/21/2025: Plan: Patient currently afebrile. Leukocytosis has improved to 12. Procalcitonin is 0.1. Continue ceftriaxone and doxycycline, both started on 02/20/2025, day 2. I will send a COVID, influenza, RSV RT PCR assay. Respiratory pathogen panel, urine Legionella, urine pneumococcal antigen and serum mycoplasma IgM are pending. Goal saturation 90-94%. Currently is on room air. Discussed with Dr. Helton, will follow with you. 02/22/25; overall better, less green sputum, cough and shortness of breath. 02/23/25; improved, no sputum or cough, on Room Air, symptoms have resolved being away from his apartment where he was exposed to Polyform sprayed by [facility]. 02/24/2025: Patient tells me he is breathing normally when he sits. No dyspnea on exertion walking to the bathroom. He has minimal cough and minimal phlegm production. He is afebrile CT. Currently is on room air saturations 96%. White blood cell count 11.3, creatinine 1.89, cumulative he is -4.3 L since admission. His weight today is 82 kg. His BNP has improved from 2540 on 02/21/2025 to 414 today. Procalcitonin is unchanged at 0.1 from 02/21/2025. Plan: Patient is ready to be discharged from a pulmonary perspective on these pulmonary medications Augmentin 875-125 at 1 tablet p.o. b.i.d. times 3 days Muscarinic antagonist that insurance will cover (atrovent 2 puffs Q 6 HR, incruse ellipta 62.5 at 1 puffs Q day, spireva 18 mics at 1 puff Q day or spireva respimat 2.5 mics at 2 puff Q day) rescue albuterol 2 puffs q.4 hours p.r.n. shortness of breath or wheezing Oxygen at rest and with activity per formal home O2 assessment which I have ordered. Guaifenesin 600 mg p.o. b.i.d. p.r.n. congestion Diuretics per hospitalist team. Follow-up with PCP. Discussed with Dr. Helton, will sign off, call with questions. (2) Impaired respiratory function due to exposure to chemical: Code(s): J68.9 - Unspecified respiratory condition due to chemicals, gases, fumes and vapors Status: Acute Assessment and Plan: The patient had his house crawls space sealed With a poly foam by the [facility] in the fall of 2023. He had no respiratory issues until once the weather heated up this spring and he developed a dry cough which was worsened when he is in his house and is resolved when he leaves his house. On 02/07/2025 the [facility] department applied a 2nd coat and he sought medical attention for dry cough, shortness of breath and congestion on 02/10/2025. He again improved when he left the house. His brother drove him home and was in the house for 30 minutes and developed burning eyes and tearing eyes which resolved 10 minutes after he left the house. Patient has had continued worsening cough without dyspnea on exertion since then. He presents on 02/20/2025 with cough, shortness of breath, wheezes and a CT scan that shows new left lower lobe consolidation and right lower lobe nodular infiltrate since 02/10/2025. 02/21/25: Currently the patient states that his cough is gone, he has no shortness of breath at rest or with walking to the bathroom. When I enter the room he was on 3 L nasal cannula saturations 95%. I decreased him to room air and after 21 minutes his saturations were 93%. patient is afebrile. White blood cell count 14.0, creatinine 1.50, BNP 2540, procalcitonin 0.1. Plan: On 02/19/2025 the [facility] department came and placed vents in his crawl space to vent the air to the outside. They are supposed to return on 02/21/2025 to make these vents larger. His son who I spoke with his at the house and I have told the son to go into the house to see if he has any development of new symptoms. I talked to the son for 5 minutes while he was in the house and he had developed no symptoms and I told the son if he develops the slightest of symptoms including watering eyes, itchy eyes, burning nose, chemical taste in the mouth, shortness of breath, cough, wheezing that he should leave the house immediately and document how long he was in the house until he develops symptoms. Currently the patient is not wheezing and I will discontinue systemic steroids. Patient is tachycardic and I will discontinue albuterol and continue ipratropium. 02/22/25; He is less symptomatic, less coughing and shortness of breath. He has not heard from the [facility] Dept, knows that work was being done. He will need air purifiers in his home at discharge. 02/24/2025: The patient tells me his son was in the house on 02/21/2025 for 4 hours and had no respiratory issues. The [facility] Dept did not show up on 02/21/2025 to adjust the ventilation. Apparently the [facility] Dept will come today to adjust the ventilation. Plan: In the meantime the patient will stay at a motel [address] which is 4 blocks from his house. Patient will need to be cautious when he really enters his house and will need to leave immediately if he develops slightest of symptoms including watering eyes, itchy eyes, burning nose, chemical taste in the mouth, shortness of breath, cough, or wheezing. The patient's son will be living with the patient in this house as well. . (3) COPD (chronic obstructive pulmonary disease): Code(s): J44.9 - Chronic obstructive pulmonary disease, unspecified Status: Acute Assessment and Plan: GOLD grade 2 group B COPD Regarding his COPD, the patient has a history of tobacco use from 1955 to 2007 at 2 packs per day for a total of 104 pack years, he was exposed to secondhand smoke from his until 2013, he has no other occupational exposures. PFTs from 12/23/2021 with a moderate obstructive abnormality been FEV1 of 1.60 L, 65% predicted, ratio 50%, positive bronchodilator response, normal lung volumes and a mildly decreased DLCO that remains mildly decreased when adjusted for alveolar volume. For CT scan in our system from 10/19/2008 shows mild apical predominant centrilobular emphysema. CT scan of the chest on 06/01/2017 with mild to moderate apical predominant centrilobular emphysema and CT scan of the chest on 02/10/2025 and 02/20/2025 shows moderate apical predominant centrilobular emphysema. 3 years ago the patient tells me he could walk 5 miles. One year ago the patient tells me he can walk 3 miles and he gets tired but does not complain of dyspnea on exertion. Three weeks ago the patient tells me he could walk to miles and has no breathing limitations but would get tired. Chronically he denies cough, phlegm or hemoptysis. White blood cell count 9.4, eosinophils 3.6% equal 338 per micro L 02/21/2025: I am not convinced the patient is having an active COPD it exacerbation at this time. It sounds more like a combination of chemical exposure and/or pneumonia. Plan: I will discontinue systemic steroids at this time. Patient has sinus tachycardia at this time and I will discontinue his albuterol. I will place him on ipratropium nebulizers q.6 hours. Treat for for pneumonia as above. 02/22/25; he feels better, less coughing, less short of breath, able to get up to walk to bathroom with less problem today. He is on 3 L/min, sat 93-100%. Overall improved. 02/23/25; improved, on Room AIr, no cough or sputum. 02/24/25: will give the patient a therapeutic trial of muscarinic antagonist that his insurance will cover. (4) LOPEZ (obstructive sleep apnea): Code(s): G47.33 - Obstructive sleep apnea (adult) (pediatric) Status: Chronic Assessment and Plan: Regarding his obstructive sleep apnea, patient had a split night sleep study on 01/29/2008 with BMI of 31.1 and an [place] score of 10 with moderate sleep apnea with an AHI of 13.8. adequate titration to CPAP 14 with correction of respiratory events. Patient was set up with CPAP machine and wore full face mask for about a year and then the machine broke and it was expensive and he discontinue the use of this machine. 02/21/2025. The patient tells me he is not interested in wearing a CPAP machine at home. 02/24/2025: Patient tells me he is not interested in being re-evaluated for LOPEZ at this time. Subjective Date/time seen: 02/24/25 11:40 Interval history: 02/21/2025: This is a new pulmonary consult for COPD exacerbation. 84-year-old with a history of COPD, untrated LOPEZ, diabetes with neuropathy, coronary artery disease status post stent x3, peripheral vascular disease with renal artery stenosis, hypertension, CKD, GERD, hyperlipidemia, history of TIA status post right endarterectomy and history of colon cancer. Regarding his COPD, The patient tells me he does not have COPD and has never been diagnosed with COPD. However, the patient has a history of tobacco use from 6125-6821 at 2 packs per day for a total of 104 pack years, he was exposed to secondhand smoke from his until 2014, he has no other occupational exposures. PFTs from 12/23/2021 with a moderate obstructive abnormality, positive bronchodilator response, normal lung volumes and a mildly decreased DLCO that remains mildly decreased when adjusted for alveolar volume. For CT scan in our system from 10/19/2008 shows mild apical predominant centrilobular emphysema. CT scan of the chest on 06/01/2017 with mild to moderate apical predominant centrilobular emphysema and CT scan of the chest on 02/10/2025 and 02/20/2025 shows moderate apical predominant centrilobular emphysema. 3 years ago the patient tells me he could walk 5 miles. One year ago the patient tells me he can walk 3 miles and he gets tired but does not complain of dyspnea on exertion. Three weeks ago the patient tells me he could walk to miles and has no breathing limitations but would get tired. Chronically he denies cough, phlegm or hemoptysis. Regarding his obstructive sleep apnea, patient had a split night sleep study on 01/29/2008 with BMI of 31.1 and an [place] score of 10 with moderate sleep apnea with an AHI of 13.8. adequate titration to CPAP 14 with correction of respiratory events. Patient was set up with CPAP machine and wore full face mask for about a year and then the machine broke and it was expensive and he discontinue the use of this machine. Last fall the medicine housing department sealed his crawl space with poly foam material. The patient had no respiratory issues throughout the winter or spring months. Patient was in his usual state of health with no respiratory limitations in his activities of daily living. When the weather started getting warm he noticed that he developed a dry cough while he was in the house that would clear when he left the house. He denied fever, chills, rigors, phlegm production or hemoptysis. The department then came to his house and put a 2nd coating of the poly foam into his crawl space on approximately . patient's coughing progressed and he went to the emergency department on 02/10/2025 with cough, nasal congestion, wheezing and yellow phlegm. He had also gained 15 lb of edema in the last month. His room air saturations were 91-92. White blood cell count 9.4, eosinophils 3.6% equal 338 per micro L. He had a CT angiogram of the chest that was negative for PE with no focal infiltrates. does not appear he was sent home on any medicines. Diagnosis bronchitis. His brother drove him home and they went in the house and after 30 minutes the brother noticed that his eyes begin to burn and he started to cry. He left the house and his brother told him later that after 10 minutes of leaving the house his eyes stopped burning. Patient had continued coughing without dyspnea on exertion, shortness of breath, phlegm production. He saw his PCP on 02/17 who stated he had been short of breath for 4 days, increase edema and a prednisone taper was prescribed. The patient took this prednisone taper but noticed no improvement. On 02/19/2025 the medicine department came out and opened up outside ventilation in to his crawl space. And the plan was for them to come back on 02/21/2025 to make the vents larger. 02/20/2025: Patient presented to the emergency room with cough, blood pressure 207/64, heart rate 88, room air saturations 95%, then placed on 3 L with saturation 93%. White blood cell count 14.0, creatinine 1.50, BNP 672, ABG on 3 L 7.48/38/47. Patient had a CT scan of the chest that showed moderate apical predominant centrilobular emphysema, new left lower lobe consolidation and right lower lobe nodular infiltrate compared to 02/10/2025. Patient was started on ceftriaxone, doxycycline, Solu-Medrol and DuoNebs. 02/21/25: Currently the patient states that his cough is gone, he has no shortness of breath at rest or with walking to the bathroom. When I enter the room he was on 3 L nasal cannula saturations 95%. I decreased him to room air and after 21 minutes his saturations were 93%. patient is afebrile. White blood cell count 14.0, creatinine 1.50, BNP 2540, procalcitonin 0.1. 02/22/25; sitting up in the chair, better, less cough, sputum, shortness of breath, able to walk to the BR with less effort. He is on 3 L/min, saturation 93-100%. WBC up, 17.2, BUN 37, creat 1.57. 02/23/25; He is on room air, feels much better. He is planning to go to a motel which is being provided by [facility], and he will stay there until; his home is stable for his return. He has no cough, no sputum, and he is able to ambulate without shortness of breath. 02/24/2025: Patient tells me he is breathing normally when he sits. No dyspnea on exertion walking to the bathroom. He has minimal cough and minimal phlegm production. He is afebrile CT. Currently is on room air saturations 96%. White blood cell count 11.3, creatinine 1.89, cumulative he is -4.3 L since admission. His weight today is 82 kg. His BNP has improved from 2540 on 02/21/2025 to 414 today. Procalcitonin is unchanged at 0.1 from 02/21/2025. The patient tells me his son was in the house on 02/21/2025 for 4 hours and had no respiratory issues. The medicine home department did not show up on 02/21/2025 to adjust the ventilation. Apparently the medicine home department will come today to adjust the ventilation. In the meantime the patient will stay at a motel 6 which is 4 blocks from his house. DATA: 02/20/25: CLINICAL INDICATION: Shortness of breath and worsening cough COMPARISON: 02/10/2025. Reference is also made to plain film evaluations of the chest performed 02/20/2025 and dating back to 08/23/2023. TECHNIQUE: Multiple contiguous axial images of the chest was performed without the administration of intravenous contrast. This CT examination was performed utilizing dose reduction techniques. DLP: 337 mGy-cm FINDINGS/OBSERVATIONS: LUNG: Panlobular emphysematous disease. Bibasilar centrilobular nodularity with associated part solid opacification, left greater than right. No significant pleural effusion. Trace bibasilar bronchiectasis, right greater than left. Calcified nodules within the bilateral lung bases suggesting prior granulomatous disease. HEART: The heart is of normal size, without pericardial effusion. Aortic and mitral valve calcifications. MEDIASTINUM: Calcified lymph nodes within the bilateral jossie and subcarinal lymph node station suggesting prior granulomatous disease. Limited evaluation of noncalcified lymph nodes secondary to the lack of intravenous contrast. SOFT TISSUES OF THE CHEST: Unremarkable. BONES OF THE CHEST: No acute fracture. No lytic or blastic lesions are identified. UPPER ABDOMEN: Small hiatal hernia. Fatty atrophy of the pancreas. Punctate calcifications identified within the splenic parenchyma, suggesting prior granulomatous disease. IMPRESSION: Findings suggesting prior granulomatous disease. Panlobular emphysematous disease. Interval development of bibasilar centrilobular nodularity with associated groundglass and part solid opacification, left greater than right. No air bronchograms are identified within this opacification to suggest the presence of an infiltrate. No pleural effusions. 02/20/2025: Summary 1. Complete two-dimensional, color flow and Doppler transthoracic echocardiogram is performed. 2. Left ventricular chamber dimension is normal. 3. Left ventricular systolic function is normal, estimated at 65-70. 4. The left ventricular diastolic function is grade I diastolic dysfunction. 5. E/e' 12 is mildly elevated. 6. The aortic valve is not well visualized. Cannot determine number of aortic valve leaflets. Right Ventricle Right ventricular chamber dimension is normal. Right ventricular systolic function is normal and with normal TAPSE 2.2 cm. Right Atria Right atrial chamber dimension is normal. Tricuspid Valve There is no tricuspid valve regurgitation. No RVSP calculated. 02/10/25:Clinical Indication: Shortness of breath CT Scan of the Chest with Contrast: Technique: Contiguous sections were acquired throughout the chest after intravenous administration of 100 cc of Omnipaque 350. Dose reduction technique was used on this scan by utilizing automated exposure control and iterative reconstruction technique. The dose-length product (DLP) was 645.88 mGy-cm. Findings: There is no evidence of any significant mediastinal, hilar or axillary lymphadenopathy. There is no filling defect in the pulmonary arterial tree to suggest pulmonary embolus. There is no evidence of aortic dissection or aneurysm. There is no evidence of pleural or pericardial effusion. Moderate to advanced emphysema noted. Calcified right basilar granulomas are present. Images through the upper abdomen reveal no abnormalities. Impression: No evidence of pulmonary embolus, aortic dissection, or aortic aneurysm. Moderate to advanced emphysema. 12/23/2021: This is a pulmonary function test with pre and post-bronchodilator spirometry, plethysmography and diffusing capacity. The test was performed and results interpreted in accordance with the 2019 and 2005 ATS/ERS Task Force guidelines respectively using the Global Lung Function Initiative-2012 reference equations. Patient demonstrated good effort and cooperation. Reproducibility criteria were met. The quality of the pre bronchodilator spirometry maneuver was Grade A and post bronchodilator spirometry maneuver was Grade A. Findings: Spirometry: There is decreased maximal expiratory airflow at all lung volumes with a concave expiratory flow tracing. The contour the inspiratory flow tracing is normal. The pre bronchodilator FVC is 3.23 L, 99% predicted. The pre bronchodilator FEV1 is 1.60 L, 65% predicted. The pre bronchodilator FEV1: FVC ratio is 50%. The post bronchodilator FVC is 3.62 L, representing a 12% increase. The post bronchodilator FEV1 is 1.76 L, representing a 10% increase. The post bronchodilator FEV1: FVC ratio is 49%. Plethysmography: The total lung capacity is 7.47 L, 124% predicted. The functional residual capacity is 2.87 L, 89% predicted. The residual volume is 2.77 L, 117% predicted. Diffusing capacity: The diffusing capacity unadjusted for hemoglobin and carboxyhemoglobin is 13.3, 61% predicted. The diffusing capacity adjusted for alveolar volume is 2.60, 66% predicted. Impression: There is a moderate obstructive abnormality. There is significant improvement after inhaling a single dose of albuterol. The lung volumes are normal. The diffusing capacity unadjusted for hemoglobin and carboxyhemoglobin is mildly decreased and remains mildly decreased when adjusted for alveolar volume. There are no prior studies for comparison 01/29/2008: split night sleep study DIAGNOSTIC IMPRESSION: Moderate obstructive sleep apnea with an AHI of 13.8 associated with significant oxygen desaturations and heavy snoring. Adequate titration to 14cm of water C-pap was noted with correction of respiratory events. Snoring was also significantly controlled at that level as well. REM was achieved. In all sleep architecture improved significantly with C-pap titration with all stages of sleep being represented. Would recommend C-pap 14cm of water with a large Quattro full face mask with a ramp time of 10 minutes and a heated humidifier for added comfort. Review of Systems Review of Systems: All systems reviewed & are unremarkable except as noted in HPI and below Constitutional: Constitutional: Reports no additional constitutional complaints Eyes: Eyes: Reports no additional eye complaints ENT: Reports system reviewed and no additional complaints, except as documented Cardiovascular: Cardiovascular: Reports no additional cardiovascular complaints Respiratory: Respiratory: Reports no additional respiratory complaints Gastrointestinal: Gastrointestinal: Reports no additional gastrointestinal complaints Musculoskeletal: Musculoskeletal: Reports no additional musculoskeletal complaints Neurologic: Reports system reviewed and no additional complaints, except as documented Psychiatric: Psychiatric: Reports no additional psychiatric complaints Endocrine: Endocrine: Reports no additional endocrine complaints Hematologic/Lymphatic: Hematologic/Lymphatic: Reports no additional hematologic/lymphatic complaints Allergic/Immunologic: Allergic/Immunologic: Reports no additional allergic/immunologic complaints Exam Const: General: cooperative, healthy appearing and comfortable Orientation/consciousness: oriented to person, oriented to place and oriented to time HENMT: Head: normal to inspection Ears: hearing grossly normal bilaterally Eyes: General: appearance normal, both eyes and all related structures Neck: Neck: normal visual inspection Chest: Chest palpation & inspection: normal inspection of the chest Resp: Effort & Inspection: normal respiratory effort and able to speak in complete sentences Auscultation: crackles, no rales, no rhonchi, no wheezes and lung sounds not diminished Other: Few crackles both bases, no wheezing. Cardio: Jugular venous distension: no JVD GI: Inspection: normal to inspection Skin: General skin exam: normal color Neuro: General: oriented to person, oriented to place and oriented to time Extrem: General: normal to inspection and no edema Psych: Appearance: grossly normal Objective Data Vital Signs Vital Signs: Vital Signs - 24 hr 02/23/25 12:00 02/23/25 13:52 02/23/25 14:00 Temperature Pulse Rate 104 H 101 H 102 H Respiratory Rate 16 16 Blood Pressure Pulse Oximetry Oxygen Delivery Fraction of Inspired Oxygen 02/23/25 14:00 02/23/25 16:00 02/23/25 20:00 Temperature 36.1 C L Pulse Rate 90 109 H 107 H Respiratory Rate 16 Blood Pressure 135/60 Pulse Oximetry 93 Oxygen Delivery Fraction of Inspired Oxygen 02/23/25 20:00 02/23/25 20:09 02/23/25 20:20 Temperature Pulse Rate 103 H 89 89 Respiratory Rate 18 16 16 Blood Pressure Pulse Oximetry 93 Oxygen Delivery Room Air Fraction of Inspired Oxygen 32 02/23/25 20:40 02/24/25 00:00 02/24/25 02:08 Temperature 36.8 C Pulse Rate 103 H 80 89 Respiratory Rate 18 16 Blood Pressure 147/51 H Pulse Oximetry 93 Oxygen Delivery Fraction of Inspired Oxygen 02/24/25 02:18 02/24/25 04:00 02/24/25 05:32 Temperature 36.9 C Pulse Rate 89 84 91 Respiratory Rate 16 17 Blood Pressure 151/62 H Pulse Oximetry 90 Oxygen Delivery Fraction of Inspired Oxygen 02/24/25 07:58 02/24/25 08:03 02/24/25 08:03 Temperature 36.2 C L Pulse Rate 109 H 109 H 112 H Respiratory Rate 16 16 Blood Pressure 123/77 Pulse Oximetry 95 95 Oxygen Delivery Room Air Fraction of Inspired Oxygen 32 Intake/Output Intake/Output: Intake & Output 02/21/25 02/22/25 02/23/25 02/24/25 23:59 23:59 23:59 23:59 Intake Total 1720 1670 1380 390 Output Total 3500 1400 1550 2000 Balance -1780 270 170 -5079 Meds/Results Medications: Active Medications Generic Name Dose Route Start Last Admin Trade Name Freq PRN Reason Stop Dose Admin Acetaminophen 650 mg 02/20/25 06:42 Acetaminophen 325 Mg Tablet PO Q4H PRN Mild Pain (1-3) or Fever Amoxicillin/Clavulanate Potassium 1 tablet 02/24/25 12:00 Amoxicillin/Clavulanate K 875-125 Mg Tab PO 02/26/25 21:01 Q12HR [facility] Aspirin 81 mg 02/21/25 09:00 02/24/25 08:02 Aspirin 81 Mg Enteric Tablet PO 81 mg DAILY [facility]O Administration Atorvastatin Calcium 40 mg 02/20/25 10:30 02/24/25 08:02 Atorvastatin 40 Mg Tablet PO 40 mg DAILY [facility] Administration Chlorthalidone 25 mg 02/21/25 09:00 02/24/25 08:02 Chlorthalidone 25 Mg Tablet PO 25 mg DAILY [facility] Administration Clonidine HCl 0.2 mg 02/20/25 21:00 02/24/25 08:03 Clonidine Hcl 0.2 Mg Tablet PO 0.2 mg Q12HR [facility] Administration Clonidine HCl 0.1 mg 02/20/25 15:00 02/23/25 14:03 Clonidine Hcl 0.1 Mg Tablet PO 0.1 mg DAILY@1500 [facility]O Administration Dextrose 12.5 gm 02/20/25 16:32 Dextrose 50% 25 Gm/50 Ml Syringe IV PUSH PRN PRN Hypoglycemia Protocol Doxycycline Hyclate 100 mg 02/22/25 10:00 02/24/25 09:57 Doxycycline Hyclate 100 Mg Tablet PO 02/24/25 23:59 100 mg Q12H [facility] Administration Enoxaparin Sodium 40 mg 02/21/25 09:00 02/24/25 08:03 Enoxaparin 40 Mg/0.4 Ml Syringe SUB-Q 40 mg DAILY [facility]O Administration Furosemide 40 mg 02/22/25 09:00 02/24/25 08:03 Furosemide 40 Mg Tablet PO 40 mg DAILY [facility] Administration Gabapentin 100 mg 02/20/25 13:00 02/24/25 08:03 Gabapentin 100 Mg Capsule PO 100 mg TID [facility] Administration Glucagon 1 mg 02/20/25 16:32 Glucagon For Inj 1 Mg Vial IM PRN PRN Hypoglycemia Protocol Glucose 15 gm 02/20/25 16:32 Glucose Oral Gel 15 Gm Of Glucse In 37.5 Gm Tube PO PRN PRN Hypoglycemia Protocol Guaifenesin 1,200 mg 02/21/25 21:00 02/24/25 08:03 Guaifenesin 12 Hr 600 Mg Tabcr PO 1,200 mg Q12HR [facility] Administration Hydralazine HCl 10 mg 02/21/25 06:05 02/21/25 06:25 Hydralazine Hcl 20 Mg/Ml Vial IV PUSH 10 mg Q4H PRN Administration Blood Pressure - High Dextrose 1,000 mls @ 100 mls/hr 02/20/25 16:32 Dextrose 5% 1,000 Ml IVPB PRN PRN Hypoglycemia Protocol Insulin Aspart 2 - 5 units 02/20/25 17:00 02/24/25 08:26 Insulin Aspart (*Bkc) 100 Units/Ml SUB-Q Not Given TIDWM [facility]O Protocol Insulin Aspart 1 - 2 units 02/20/25 21:00 02/23/25 20:39 Insulin Aspart (*Bkc) 100 Units/Ml SUB-Q Not Given HS [facility] Protocol Ipratropium Carey 0.5 mg 02/21/25 14:00 02/24/25 09:24 Ipratropium Br 0.02% Inh Soln 0.5 Mg/2.5 Ml Vial INHALATION 0.5 mg Q6HRT [facility] Administration Irbesartan 300 mg 02/20/25 10:30 02/24/25 08:03 Irbesartan 150 Mg Tablet PO 300 mg DAILY [facility] Administration Lorazepam 0.5 mg 02/20/25 10:26 02/23/25 20:52 Lorazepam (*Crx) 0.5 Mg Tablet PO 0.5 mg BID PRN Administration anxiety Nifedipine 90 mg 02/20/25 10:30 02/24/25 08:03 Nifedipine 30 Mg Tab.Er.24 PO 90 mg DAILY [facility]O Administration Pantoprazole Sodium 40 mg 02/20/25 10:30 02/24/25 08:04 Pantoprazole 40 Mg Tablet PO 40 mg Q12HR [facility] Administration Polyethylene Glycol 17 gm 02/22/25 10:06 02/22/25 11:03 Polyethylene Glycol 3350 17 Gm Powd.Pack PO 17 gm QAM PRN Administration Constipation Tamsulosin HCl 0.4 mg 02/21/25 09:00 02/24/25 08:04 Tamsulosin Hcl 0.4 Mg Capsule PO 0.4 mg DAILY [facility]O Administration Radiology Results: ITS Impressions Chest X-Ray 02/20/25 05:50 Impression: Questionable minimal pleural effusions with mild bibasilar atelectatic change. Underlying COPD. Chest CT 02/20/25 17:51 IMPRESSION: Findings suggesting prior granulomatous disease. Panlobular emphysematous disease. Interval development of bibasilar centrilobular nodularity with associated groundglass and part solid opacification, left greater than right. No air bronchograms are identified within this opacification to suggest the presence of an infiltrate. No pleural effusions. Labs Labs: Laboratory Results - last 24 hr 02/23/25 02/23/25 02/23/25 12:19 16:52 20:38 WBC RBC Hgb Hct MCV MCH MCHC RDW Plt Count MPV Immature Gran % (Auto) Neut % (Auto) Lymph % (Auto) Dickey % (Auto) Eos % (Auto) Baso % (Auto) Lymph # (Auto) Dickey # (Auto) Eos # (Auto) Baso # (Auto) Abs Immat Gran (auto) Absolute Neuts (auto) Absolute Nucleated RBC Band Neutrophils % Nucleated RBC % Platelet Estimate Poikilocytosis Anisocytosis Ovalocytes Acanthocytes (Spur) Schistocytes Sodium Potassium Chloride Carbon Dioxide Anion Gap BUN Creatinine Estim Creat Clear Calc Estimated GFR Glucose POC Capillary Glucose 146 H 115 H 161 H Calcium Total Bilirubin AST ALT Alkaline Phosphatase NT-Pro-B Natriuret Pep Total Protein Albumin Procalcitonin 02/24/25 02/24/25 02/24/25 04:59 05:03 07:47 WBC 11.3 H RBC 5.79 Hgb 13.0 L Hct 43.2 MCV 74.6 L MCH 22.5 L MCHC 30.1 L RDW 20.1 H Plt Count 448 H MPV 9.6 Immature Gran % (Auto) 0.7 H Neut % (Auto) 71.1 Lymph % (Auto) 16.7 L Dickey % (Auto) 8.5 Eos % (Auto) 2.5 Baso % (Auto) 0.5 Lymph # (Auto) 1.89 Dickey # (Auto) 1.0 H Eos # (Auto) 0.3 Baso # (Auto) 0.1 Abs Immat Gran (auto) 0.08 H Absolute Neuts (auto) 8.0 H Absolute Nucleated RBC 0.000 Band Neutrophils % Not Reportable Nucleated RBC % 0.0 Platelet Estimate Increased Poikilocytosis 1+ Anisocytosis 1+ Ovalocytes 1+ Acanthocytes (Spur) 1+ Schistocytes None seen Sodium 136 L Potassium 3.9 Chloride 101 Carbon Dioxide 29 Anion Gap 6 BUN 50 H Creatinine 1.89 H Estim Creat Clear Calc 27 Estimated GFR 34 L Glucose 129 H POC Capillary Glucose 169 H Calcium 9.2 Total Bilirubin 0.7 AST 21 ALT 19 Alkaline Phosphatase 63 NT-Pro-B Natriuret Pep 414 H Total Protein 5.9 L Albumin 3.3 L Procalcitonin 0.1
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
[2025-02-24] MEDS: AMOXICILLIN/CLAVULANATE K 875-125 MG TAB 1 TABLET PO (12:11)
[2025-02-24 12:34] LABS: Glucose Point of Care 134 mg/dl (65-105)
--- NOTE | 2025-02-24 13:43 | PCRCNOTE ---
Home O2 not needed at this time. RN notified
[2025-02-25 18:28] LABS: Mycoplasma IgM Antibody Titer. 202 U/mL
[2025-02-26 17:28] LABS: Legionella pneumophila Ag Ur. NOT DETECTED
== END 2025-02-24 13:00 | disposition home or self-care (01) | DRG 206 ==
LOC: ANHED 07:06 → ANH2MED 07:29
PROVIDERS: General Practice; Internal Medicine Pulmonary Disease; Admitting Provider Internal Medicine; Emergency Provider Student in an Organized Health Care Education/Training Program; PCP Family Medicine; Visit Provider Physician Assistant
DX: J68.0 Bronchitis and pneumonitis due to chemicals, gases, fumes and vapors (principal); J68.4 Chronic respiratory conditions due to chemicals, gases, fumes and vapors; I25.10 Atherosclerotic heart disease of native coronary artery without angina pectoris; I70.1 Atherosclerosis of renal artery; I73.9 Peripheral vascular disease, unspecified; R00.0 Tachycardia, unspecified; I12.9 Hypertensive chronic kidney disease with stage 1 through stage 4 chronic kidney disease, or unspecified chronic kidney disease; E11.22 Type 2 diabetes mellitus with diabetic chronic kidney disease; N18.31 Chronic kidney disease, stage 3a; K21.9 Gastro-esophageal reflux disease without esophagitis; G47.33 Obstructive sleep apnea (adult) (pediatric); M79.89 Other specified soft tissue disorders; E11.42 Type 2 diabetes mellitus with diabetic polyneuropathy; E78.2 Mixed hyperlipidemia; I65.29 Occlusion and stenosis of unspecified carotid artery; Z85.048 Personal history of other malignant neoplasm of rectum, rectosigmoid junction, and anus; Z90.49 Acquired absence of other specified parts of digestive tract; Z95.5 Presence of coronary angioplasty implant and graft; Z98.49 Cataract extraction status, unspecified eye; Z87.891 Personal history of nicotine dependence; Z86.73 Personal history of transient ischemic attack (TIA), and cerebral infarction without residual deficits
CPT/HCPCS: 36415; 71046; 71250; 80053; 82103; 82104; 82803; 82948; 83880; 84145; 85025; 85027; 86738; 87449; 87633; 87637; 87899; 93005; 93306; 94618; 94640; 94762; 96365; 96367; 96375; 99285; A9270; G0378; J0360; J0456; J0696; J1650; J1815; J1938; J2919; J3475; J7030

== ENCOUNTER 2025-03-01 10:43 | Emergency (ER) | payer MEDICARE, SELFPAY ==
--- NOTE | ~2025-03-01 | XR_ITS ---
EXAMINATION: XR chest 2V Exam Date/Time: 03/01/2025 14:55 CDT HISTORY: swelling BLE Comparison: 02/20/2025. RESULT: Lines, tubes, and devices: None. Lungs and pleura: Emphysematous change. Persistent but improving small bibasilar subsegmental consol idative and centrilobular nodular opacities. Bibasilar scar. Cardiomediastinal silhouette: Stable. Other: No acute osseous or upper abdominal finding. IMPRESSION: Improving small areas of bibasilar consolidation and centrilobular nodular opacities. Emphysematous c hange. Reviewed, dictated and finalized at location K. IMPRESSION: Improving small areas of bibasilar consolidation and centrilobular nodular opac ities. Emphysematous change.
--- NOTE | ~2025-03-01 | US_ITS ---
EXAMINATION: US venous doppler [facility] DATE: 03/01/2025 15:17 INDICATION: swelling BLE, recent hospitalization . TECHNIQUE: Grayscale images without and with compression and Doppler images of the bilateral lower ex tremity veins were obtained. COMPARISON: None FINDINGS: The right common femoral vein, profunda (deep) femoral vein, femoral vein, popliteal vein, peroneal v ein, posterior tibial veins, gastrocnemius vein, and greater saphenous vein are patent. The left common femoral vein, profunda (deep) femoral vein, femoral vein, popliteal vein, peroneal v ein, posterior tibial veins, gastrocnemius vein, and greater saphenous vein are patent. IMPRESSION: Patent bilateral lower extremity veins. No evidence of deep venous thrombosis. Reviewed, dictated and finalized at location K.
[2025-03-01 11:11] VITALS: BP 190/114; PULSE 97; RESP 16; TEMP 36.5; O2SAT 98
[2025-03-01 14:00] VITALS: BP 142/58; PULSE 82; RESP 16; TEMP 36.8; O2SAT 100
[2025-03-01 14:44] LABS: Add Urine Microscopic? NO; Appearance Urine Clear (Clear); Bilirubin Urine Negative (Negative); Blood Urine Negative (Negative); Color Urine Yellow (Yellow); Glucose Urine UA Negative (Negative); Ketones Urine Negative (Negative); Leukocyte Esterase Ur Negative LEU/UL (Negative); Nitrate Urine Negative (Negative); Protein Urine Negative (Negative); Specific Grav Ur 1.012 (1.001-1.035); Urobilinogen Urine 0.2 mg/dL (<2.0); pH Urine 5.5 (5.0-9.0)
--- NOTE | 2025-03-01 15:13 | ED_ITS ---
HPI - Male Genitourinary General Chief complaint: Urogenital-Male Stated complaint: Difficulty w/ Urination Time Seen by Provider: 03/01/25 13:59 Source: patient and old records reviewed Mode of arrival: ambulatory Limitations: no limitations History of Present Illness HPI Narrative: Patient is an 84 y/o male, with PMH of CAD, PVD, DM, CKD, who presents to the ED with c/o difficulty urinating. Patient reports having difficulty urinating over the past couple days, stating he can only urinate a small amount at a time. Denied dysuria or hematuria. Denies abdominal or back pain. Notes he was recently admitted here for 02/20-02/24 for emphysema exacerbation, PNA, toxic exposure to chemical. He required a catheter at that time for urinary retention, but states he was able to urinate normally by the end of his hospitalization. Patient also reports having some swelling throughout his lower legs over the past couple of days. He denies history of CHF. He had a follow- up appointment post hospitalization with his PCP on 02/26 and was prescribed a 1 week course of Lasix 20 mg. Has been taking this with some improvement. Denies significant SOB, orthopnea, CP. Related Data Home Medications ?Medication ?Instructions ?Recorded ?Confirmed ?Last Taken ?Type aspirin 81 mg tablet,delayed 81 mg PO DAILY 10/16/19 02/26/25 08/23/23 08:00 History release (Adult Aspirin Regimen) clonidine HCl 0.1 mg tablet 0.1 mg PO USEASDIRECTD 08/24/23 02/26/25 Unknown History Allergies Allergy/AdvReac Type Severity Reaction Status Date / Time No Known Allergies Allergy Verified 03/01/25 11:14 Review of Systems 2 Review of Systems: All systems reviewed & are unremarkable except as noted in HPI. All systems reviewed & are unremarkable except as noted in HPI and below PMFSH Past Medical History Medical History Renal artery stenosis Peripheral vascular disease Coronary artery disease Colorectal cancer Type 2 diabetes mellitus Hypertension Gastroesophageal reflux disease Chronic kidney disease, stage 3 Diabetic neuropathy Mixed hyperlipidemia Carotid artery stenosis Surgical History Surgical History History of right-sided carotid endarterectomy History of cholecystectomy History of cataract extraction History of coronary artery stent placement History of colon surgery Family History Family History Mother Family history of coronary artery disease Cerebrovascular accident Sibling Family history of coronary artery disease Other Hypertension Other Diabetes mellitus Father Diabetes mellitus Other Family history of cardiovascular disease Social History Social History Social History: Surrogate medical decision maker: Cassius Pérez, brother. Code status: Full code. Smoking packs per day: 2 Smoking cigarettes per day: 40.0 Years smoked: 53 Smoking pack-years: 106.00 Smoking status: Former smoker Tobacco type: cigarettes Second hand tobacco smoke exposure: Yes Alcohol intake: never Substance use: never Substance use type: does not use Do You Feel Safe in your Home?: Yes Lack of Transportation: No Lack of Food: Never True Current Housing: I Have Housing Concerned About Future Housing: No Difficulty Paying Gas/Electric Bills: No Difficulty Paying for Meds: No Currently Unemployed: No Education: High School Diploma/GED Difficulty w/ Childcare or Family Care: No Living arrangements: alone Additional living arrangements comments: Lives in [place]. . Has 1 son. 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 Gender identity (if verbalized by the patient): Male Spiritual care concerns: No Exam 2 Narrative: GENERAL: Elderly but well appearing, well-nourished, non-toxic, in no acute distress. HEAD: Normocephalic, atraumatic. RESPIRATORY: Airway patent, respirations nonlabored. Clear to auscultation bilaterally, no rales, rhonchi, wheezing. No significant focal lung sounds. CARDIOVASCULAR: Regular rate and rhythm without murmurs, rubs, or gallops. Pedal pulses intact ABDOMINAL: Soft, no tenderness throughout abdomen, nondistended. Normoactive BS. MUSCULOSKELETAL: Moves all extremities. No gross deformities. 1+ pitting edema BLE, no significant tenderness. SKIN: Warm, dry, normal color. NEURO: A&O X3. Speech clear. Cranial nerves II-XII grossly intact. Steady gait. No ataxic movements. PSYCHIATRIC: Appropriate mood and affect. Normal interaction. Course Vital Signs Vital signs: Vital Signs Temperature 97.7 F 03/01/25 11:11 Pulse Rate 97 03/01/25 11:11 Respiratory Rate 16 03/01/25 11:11 Blood Pressure 190/114 H 03/01/25 11:11 Pulse Oximetry 98 03/01/25 11:11 Oxygen Delivery Room Air 03/01/25 11:11 Temperature 98.3 F 03/01/25 14:00 Pulse Rate 82 03/01/25 14:00 Respiratory Rate 16 03/01/25 14:00 Blood Pressure 142/58 H 03/01/25 14:00 Pulse Oximetry 100 03/01/25 14:00 Oxygen Delivery Room Air 03/01/25 14:00 MDM - Male Genitourinary MDM Narrative Medical decision making narrative: Patient presented to ED with difficulty urinating and swelling throughout his lower legs for the past couple of days. History recent hospitalization with requirement of Martinez catheter for urinary retention. Patient was able to urinate a small amount in to urine sample cup. He stated that he still felt his bladder was full. He was bladder scanned and found to have greater than a 1000 mL of urine in his bladder. Martinez catheter was placed. Approximately 1500 mL of urine drained. Patient feeling much better. Urinalysis is clear. No signs of infection. Laboratory studies with minimal leukocytosis, consistent with previous records, H&H stable. CMP is unremarkable. Kidney function consistent with previous records. Troponin within normal range. Patient denying chest pain. BNP only 183. Low suspicion for CHF at this time. Chest x-ray with some improving consolidations and emphysematous changes. Consistent with history. Venous Doppler ultrasound was obtained and negative for DVT. Discussed overall reassuring workup. Patient denies any abdominal or flank pain to suggest need for further imaging at this time. Does have history of BPH with recent retention requiring catheter. Will keep catheter in for now and have patient follow-up closely with Urology for further evaluation. Feel he is otherwise safe for discharge home at this time. His doctor is aware of the swelling the patient has been experiencing, prescribed week course of Lasix. Advised to continue this, recommend elevation of legs, compression stockings. Recommended close follow-up with PCP for continued management. Discussed very strict return precautions. Patient in agreement with plan. Feels comfortable going home. Discharged in stable condition. Medical Records Attestation: I reviewed the patient's medical records. Lab Data Attestation: I reviewed the patient's lab results. 03/01/25 16:38 03/01/25 16:38 Labs: Lab Results 03/01/25 03/01/25 Range/Units 14:36 16:38 WBC 11.2 H (4.5-10.0) K/mm3 RBC 5.48 (4.6-6.20) M/mm3 Hgb 12.4 L (14.0-18.0) g/dL Hct 41.3 L (42.0-52.0) % MCV 75.4 L (80-100) fl MCH 22.6 L (26-34) pg MCHC 30.0 L (32-36) g/dl RDW 20.8 H (11.5-14.5) % Plt Count 396 H (150-375) k/mm3 MPV 9.6 (7.4-10.4) fl Immature Gran % (Auto) 0.5 (0-0.5) % Neut % (Auto) 69.9 (45.5-73.1) % Lymph % (Auto) 18.5 (18.3-44.2) % [place] % (Auto) 8.4 (2.6-8.5) % Eos % (Auto) 2.2 (0-4.4) % Baso % (Auto) 0.5 (0.2-1.2) % Lymph # (Auto) 2.08 (0.9-3.2) K/mm3 [place] # (Auto) 0.9 H (0.1-0.6) K/mm3 Eos # (Auto) 0.3 (0-0.3) K/mm3 Baso # (Auto) 0.1 (0.0-0.1) K/mm3 Abs Immat Gran (auto) 0.06 H (0.00-0.031) K/mm3 Absolute Neuts (auto) 7.8 H (1.3-6.7) K/mm3 Absolute Nucleated RBC 0.000 (0.0-0.012) K/mm3 Nucleated RBC % 0.0 (0.0-0.2) % PT 12.8 (11.1-14.7) Seconds INR 1.0 APTT 29.8 (22.3-36.8) Seconds Sodium 139 (137-145) mmol/L Potassium 4.0 (3.4-5.0) mmol/L Chloride 101 (98-107) mmol/L Carbon Dioxide 29 (22-30) mmol/L Anion Gap 9 (4-12) mmol/L BUN 33 H D (9-20) mg/dL Creatinine 1.48 H (0.7-1.3) mg/dL Estim Creat Clear Calc 35 ml/min Estimated GFR 46 L (59 - ) Glucose 106 (65-110) mg/dL Calcium 10.0 (8.4-10.2) mg/dL Total Bilirubin 0.6 (0.2-1.3) mg/dL AST 36 (17-59) U/L ALT 20 (6-50) U/L Alkaline Phosphatase 76 (38-126) U/L Troponin I 0.020 (0.000-0.034) ng/mL NT-Pro-B Natriuret Pep 183 H (19.9-100) pg/mL Total Protein 6.8 (6.3-8.2) g/dL Albumin 3.8 (3.5-5.1) g/dL Urine Color Yellow (Yellow) Urine Appearance Clear (Clear) Urine pH 5.5 (5.0-9.0) Ur Specific [place] 1.012 (1.001-1.035) Urine Protein Negative (Negative) mg/dL Urine Glucose (UA) Negative (Negative) mg/dL Urine Ketones Negative (Negative) mg/dL Ur Blood (Man) Negative (Negative) Urine Nitrate Negative (Negative) Urine Bilirubin Negative (Negative) Urine Urobilinogen 0.2 (<2.0) mg/dL Leukocyte Esterase Rfl Negative (Negative) MAURICE/UL Imaging Data Attestation: I personally reviewed and interpreted this imaging study as follows: Radiologist's impression: ITS Impressions Chest X-Ray 03/01/25 15:04 IMPRESSION: Improving small areas of bibasilar consolidation and centrilobular nodular opacities. Emphysematous change. Venous Doppler Study 03/01/25 15:55 IMPRESSION: Patent bilateral lower extremity veins. No evidence of deep venous thrombosis. Discharge Plan Discharge Clinical Impression: Acute urinary retention, Swelling of both lower extremities Patient Disposition: Home Condition: Stable Instructions: Antibiotic Form, Urinary Retention in Men (ED), Martinez Catheter Placement and Care (ED), Edema (ED) Additional Instructions: Follow-up with urology for further evaluation of urinary retention. Keep catheter in until seen by Urology. You will need to call the office to make an appointment. Your workup here was otherwise reassuring. Continue the Lasix prescribed to you by your primary care doctor for swelling in your legs. You may try compression stockings, elevating her legs whenever possible. Follow-up closely with your primary care doctor for further evaluation of this. Return to the ED if you experience worsening or severe symptoms, severe swelling, abdominal pain, back pain, unable to keep down food or drink, catheter not draining, fevers, or any other symptoms of concern. Patient Language: Amharic Prescriptions: No Action aspirin [Adult Aspirin Regimen] 81 mg tablet,delayed release (DR/EC) 81 mg PO DAILY furosemide [Lasix] 20 mg tablet 20 mg PO QAM Qty: 7 0RF Incruse Ellipta 62.5 mcg/actuation blister with device 1 inh inhalation DAILY Qty: 7 0RF guaifenesin 600 mg tablet extended release 12hr 600 mg PO BID Qty: 10 0RF clonidine HCl 0.1 mg tablet 0.1 mg PO USEASDIRECTD Rx Instructions: TAKE 2 TABLETS BY MOUTH EVERY MORNING , TAKE 1 TABLET IN AFTERNOON AND TAKE 2 TABLETS AT NIGHT (DME) blood-glucose meter [Accu-Chek Jaimee Plus Meter] Misc See Rx Instructions .ROUTE .MEDSUPPLY Qty: 1 0RF Rx Instructions: Used once daily to check blood sugar (DME) lancets [Accu-Chek Multiclix Lancet] Misc See Rx Instructions .ROUTE .MEDSUPPLY Qty: 200 10RF Rx Instructions: Use once daily to check blood sugar (DME) Blood Glucose Test Strip See Rx Instructions .ROUTE .MEDSUPPLY Qty: 100 3RF Rx Instructions: Use once daily to check blood sugar gabapentin 100 mg capsule 100 mg PO TID Qty: 270 2RF pantoprazole 40 mg tablet,delayed release (DR/EC) See Rx Instructions .ROUTE .COMPLEX Qty: 180 2RF Dose Instruction: TAKE 1 TABLET BY MOUTH TWICE A DAY Rx Instructions: TAKE 1 TABLET BY MOUTH TWICE A DAY tamsulosin 0.4 mg capsule 0.4 mg PO DAILY Qty: 90 2RF nifedipine 90 mg tablet extended release See Rx Instructions .ROUTE .COMPLEX Qty: 90 2RF Dose Instruction: TAKE 1 TABLET BY MOUTH EVERY DAY Rx Instructions: TAKE 1 TABLET BY MOUTH EVERY DAY chlorthalidone 25 mg tablet 25 mg PO DAILY Qty: 30 5RF lorazepam 0.5 mg tablet 0.5 mg PO BID PRN (Reason: anxiety) Qty: 45 0RF metformin 500 mg tablet extended release 24 hr 500 mg PO DAILY Qty: 90 2RF atorvastatin 40 mg tablet See Rx Instructions .ROUTE .COMPLEX Qty: 90 3RF Dose Instruction: TAKE 1 TABLET (40 MG) BY MOUTH DAILY Rx Instructions: TAKE 1 TABLET (40 MG) BY MOUTH DAILY irbesartan 300 mg tablet See Rx Instructions .ROUTE .COMPLEX Qty: 90 3RF Dose Instruction: TAKE 1 TABLET (300 MG) BY MOUTH DAILY Rx Instructions: TAKE 1 TABLET (300 MG) BY MOUTH DAILY Follow-up/Referrals: Naveen Lott MD [Primary Care Provider] - Eugene Jewell MD [Physician] - (UROLOGY) Time of Disposition: 18:28
[2025-03-01 16:45] LABS: Basophils Absolute Auto 0.1 K/mm3 (0.0-0.1); Basophils Percent Auto 0.5 % (0.2-1.2); Eosinophils Absolute Auto 0.3 K/mm3 (0-0.3); Eosinophils Percent Auto 2.2 % (0-4.4); Hematocrit 41.3 % (42.0-52.0); Hemoglobin 12.4 g/dL (14.0-18.0); Immature Granulocyte Absolute 0.06 K/mm3 (0.00-0.031); Immature Granulocyte Percent A 0.5 % (0-0.5); Lymphocytes Absolute Auto 2.08 K/mm3 (0.9-3.2); Lymphocytes Percent Auto 18.5 % (18.3-44.2); Mean Corpuscular Hemoglobin 22.6 pg (26-34); Mean Corpuscular Volume 75.4 fl (80-100); Mean Platelet Volume 9.6 fl (7.4-10.4); Monocytes Absolute Auto 0.9 K/mm3 (0.1-0.6); Monocytes Percent Auto 8.4 % (2.6-8.5); Neutrophils Absolute Auto 7.8 K/mm3 (1.3-6.7); Neutrophils Percent Auto 69.9 % (45.5-73.1); Platelet Count Result 396 k/mm3 (150-375); Red Blood Count 5.48 M/mm3 (4.6-6.20); Red Cell Distribution Width 20.8 % (11.5-14.5); White Blood Count 11.2 K/mm3 (4.5-10.0)
[2025-03-01 17:00] LABS: Alanine Aminotransferase 20 U/L (6-50); Albumin Level 3.8 g/dL (3.5-5.1); Alkaline Phosphatase 76 U/L (38-126); Anion Gap 9 mmol/L (4-12); Aspartate Amino Transferase 36 U/L (17-59); Bilirubin,Total 0.6 mg/dL (0.2-1.3); Blood Urea Nitrogen 33 mg/dL (9-20); Carbon Dioxide 29 mmol/L (22-30); Chloride 101 mmol/L (98-107); Estimated CRCL calculation 35 ml/min; Estimated Glomerular Filt Rate 46; Glucose 106 mg/dL (65-110); Prothrombin Time 12.8 Seconds (11.1-14.7); Sodium 139 mmol/L (137-145); Total Protein 6.8 g/dL (6.3-8.2)
[2025-03-01 17:01] LABS: Partial Thromboplastin Time 29.8 Seconds (22.3-36.8)
[2025-03-01 17:12] LABS: NT Pro B Type Natriuretic Pept 183 pg/mL (19.9-100)
== END 2025-03-01 19:10 | disposition home or self-care (01) ==
PROVIDERS: Emergency Medicine; Emergency Provider Physician Assistant; PCP Family Medicine
DX: R33.9 Retention of urine, unspecified (principal); R22.43 Localized swelling, mass and lump, lower limb, bilateral; I25.10 Atherosclerotic heart disease of native coronary artery without angina pectoris; E11.22 Type 2 diabetes mellitus with diabetic chronic kidney disease; I12.9 Hypertensive chronic kidney disease with stage 1 through stage 4 chronic kidney disease, or unspecified chronic kidney disease; N18.30 Chronic kidney disease, stage 3 unspecified; E78.2 Mixed hyperlipidemia; K21.9 Gastro-esophageal reflux disease without esophagitis; Z85.038 Personal history of other malignant neoplasm of large intestine; Z87.891 Personal history of nicotine dependence
CPT/HCPCS: 36415; 51702; 71046; 80053; 81003; 83880; 84484; 85025; 85610; 85730; 93970; 99284

== ENCOUNTER 2025-03-04 14:18 | Emergency (ER) | payer MEDICARE, SELFPAY ==
--- OUTSIDE RECORDS SUMMARY | 2025-03-04 14:21 | XMS_ITS | Referral Summary ---
Author Organization [facility] [place] [address] Address [address] [place] [address] Care Team Providers Care Process Project Engineer Name Role Phone Naveen Lott MD Primary Care Provider Alexandre Godinez MD Unavailable [phone] Radha JIN MD, Can Bishop Unavailable [phone] Encounters Date Type Department Care Team Description 03/03/2025 Orders Only [facility] Cardiology [address] [place] [address] Alex Garcia MD from Last 3 Months Allergies No known active allergies Medications pantoprazole [...] (08/20/2021): Added automatically from request for surgery [id number] S/P carotid endarterectomy 04/13/2021 Stenosis of right carotid artery 04/01/2021 Overview (04/01/2021): Added automatically from request for surgery [id number] [facility] 03/08/2021 Coronary artery disease invo lving [place] coronary artery of [place] heart without angina pectoris 04/27/2017 S/P coronary [...] on file Legal Sex Male 9:17 AM [facility] Gender Identity Not on file Sexual Orientation Not on file Last Filed Vital Signs Vital Sign Reading Time Taken Comments Blood Pressure 139/43 09/29/2024 10:05 PM [facility] Pulse 63 09/29/2024 10:05 PM [facility] Temperature 36.9 C (98.5 F) 09/29/2024 10:05 PM [facility] Respiratory Rate 19 09/29/2024 10:05 PM [facility] Oxygen Saturation 93% 09/29/2024 10:05 PM [facility] Inhaled Oxygen Concentration - - Weight 86.2 kg (190 lb 0.6 oz) 09/29/2024 3:08 P M [facility] Height 165.1 cm (5' 5) 09/29/2024 3:08 PM [facility] Body Mass Index 31.62 09/29/2024 3:08 PM [facility] Plan of Treatment Not on file Procedures Procedure Name Priority Date/Time Associated Diagnosis Comments CARDIOLOGY DOCUMENT SCAN Routine 02/22/2025 1:[address] ABDOMEN PELVIS WO CONTRAST ED 09/29/2024 6:43 PM [facility] EGFR STAT 09/29/2024 3:13 PM [facility] HEMOGLOBIN A1C Routine 10/04/2021 10:45 AM [facility] Preop testing LIPID PANEL Routine 03/09/2021 5:04 AM CDT from Last 3 Months or Most Recently Relevant to Health Maintenance Results * Cardiology Document Scan (02/22/2025 1:30 PM CDT) Anatomical Region Laterality Modality Other us Alex Garcia MD CV CARDIAC SERVICES PROC EDURES Final Result * CT Abdomen Pelvis WO Contrast (09/29/2024 6:43 PM [facility]) Anatomical Region Laterality Modality Body N/A Computed Tomogra phy 09/29/2024 6:41 PM [facility] Impressions 09/29/2024 11:18 PM [facility] 1. Minimal nonspecific bilateral perinephric stranding. No acute urinary tract findings otherwise. 2. Low stool burden with colonic diverticulosis. No acute bowel findings otherwise. 3. Enlarged prostate with distended urinary bladder. See discussion above. Stat report by [facility] Electronically signed by: Oswaldo Botello M.D. Narrative 09/29/2024 11:18 PM [facility] EXAMINATION: CT ABDOMEN PELVIS WO CONTRAST DATE: [...] bladder. See discussion above. Stat report by [facility] Electronically signed by: Oswaldo Botello M.D. Reese Waller MD IMG CT PROCEDURES Final Result * (ABNORMAL) eGFR (09/29/2024 3:13 PM [facility]) eGFR 36(L) >=60 mL/min/1. 73 m2 Comment: [...] last reviewed 2021. Blood 09/29/2024 3:13 PM [facility] 09/29/2024 3:18 PM [facility] Reese Waller MD LAB BLOOD ORDERABLES Fi nal Result VAL[facility] [address] Department [place] [address] * (ABNORMAL) Hemoglobin A1c (10/04/2021 10:45 AM [facility]) Hgb A1C 6.6(H) 4.0 - 5.6 % VALERIE Estimated Average Glucose 143 mg/dL [facility] HOUSER Comment: The ADA recommends reporting an estimated Average Glucose (eAG) with all Hemoglobin A1c results using the equation derived from a study of 507 normal and diabetic adults. Minority populations were underrepresented and children were not included. (Diabetes Care 31:1137-7367, 2008). The eAG is not equivalent to a fasting glucose. Blood 10/04/2021 10:4 5 AM [facility] 10/04/2021 11:11 AM [facility] us Alexandre Godinez MD LAB BLOOD ORDERABLES Final Res ult [facility] [address] Department [place] [address] * (ABNORMAL) Lipid panel (03/09/2021 5:04 AM [...] NP LAB BLOOD [place] [id number] [address] Department [place] [address] from Last 3 Months or Most Recently Relevant to Health Maintenance Insurance [facility] MEDICARE ADVANTAGE [facility] Address: [address] [address] [place] [address] [facility] MEDICARE ADVANTAGE [facility] Address: [address] [address] [place] [address] [facility] MEDICARE ADVANTAGE [facility] Address: [address] [address] [place] [address] [facility] MDCR HMO REF [facility] Address: [address] [address] [place] [address] Advance Directives For more information, please contact: [phone] * Full Code (Latest Code Status on File) Date Activated Date Inactivated Comments 01/07/2023 9:03 PM 01/08/2023 8:55 PM * Full Code Date Activated Date Inactivated Comments 10/08/2021 6:40 PM 10/09/2021 6:54 PM * Full Code Date Activated Date Inactivated Comments 04/13/2021 8:38 PM 04/15/2021 9:43 PM * Full Code Date Activated Date Inactivated Comments 03/08/2021 12:34 PM 03/10/2021 11:12 PM Care Teams Process Project Engineer Relationship Specialty Start Date End Date Naveen Lott MD [address] [address] PCP - General 12/02/16 Alexandre Godinez MD [address] [address] Surgeon Neurosurgery 03/10/21 [place] [address] [facility] [address] [address] Consulting Physician Neurology 03/10/21
--- OUTSIDE RECORDS SUMMARY | 2025-03-04 14:21 | XMS_ITS | Clinical Summary ---
Author Organization [facility] [address] Address [address] [place] [address] Care Team Providers Care Store Operations Manager Name Role Phone Naveen Lott MD Primary Care Provider Alexandre Godinez MD Unavailable [phone] Radha JIN MD, Can Bishop Unavailable [phone] Allergies No known active allergies Medications pantoprazole [...] 2 TABLETS AT NIGHT 150 tablet 2 Active Active Problems Problem Noted Date [...] (08/20/2021): Added automatically from request for surgery [id number] S/P carotid endarterectomy 04/13/2021 Stenosis of right carotid artery 04/01/2021 Overview (04/01/2021): Added automatically from request for surgery [id number] [facility] 03/08/2021 Coronary artery disease invo lving [place] coronary artery of [place] heart without angina pectoris 04/27/2017 S/P coronary artery stent placement 04/27/2017 Bradycardia Encounters Date Type Department Care Team Description 03/03/2025 Orders Only [facility] Cardiology [address] [place] [address] Alex Garcia MD from Last 3 Months Surgical History Surgery Date Site/Laterality Comments CAROTID ENARTERECTOMYY 09/04/2006 - 09/03/2007 Left Carotid Endarterectomy CARDIAC STENT PLACEMENT 09/04/2006 - 09/03/2007 COLONOSCOPY W/ POLYPECTOMY CATARACT EXTRACTION, BILATERAL COLECTOMY CHOLECYSTECTOMY CAROTID ENDARTERECTOMY 09/04/2020 - 09/03/2021 Right Medical History Medical History Date Comments Hypertension Coronary artery disease Atrial fibrillation (HCC) flutte r Type 2 diabetes mellitus (HCC) Renal artery stenosis 2008 right > 60 % Cataract Carotid stenosis [...] on file Legal Sex Male 9:[address] 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 Gender Identity Not on file Sexual Orientation Not on file Obstetrics History Last Filed Vital Signs Vital Sign Reading Time Taken Comments Blood Pressure 139/43 09/29/2024 10:[address] 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 Pulse 63 09/29/2024 10:[address] 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 Temperature 36.9 C (98.5 F) 09/29/2024 10:[address] 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 Respiratory Rate 19 09/29/2024 10:[address] 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 Oxygen Saturation 93% 09/29/2024 10:[address] 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 Inhaled Oxygen Concentration - - Weight 86.2 kg (190 lb 0.6 oz) 09/29/2024 3:[address] 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 Height 165.1 cm (5' 5) 09/29/2024 3:[address] 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 Body Mass Index 31.62 09/29/2024 3:[address] 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 Plan of Treatment Health Maintenance Due Date [...] Assessment 01/09/2024 01/08/2023, 06/09/20 20 Influenza Vaccine (#1) 2025 , 05/18/2020, 06/03/2017, Additional history exists eGFR 09/29/2025 09/29/2024, 05/0 03/2023, 01/07/2023, Additional history exists Abdominal Aortic Aneurysm (A AA) Screen Completed 09/29/2024 Procedures Procedure Name Priority Date/Time Associated Diagnosis Comments CARDIOLOGY DOCUMENT SCAN Routine 02/22/2025 1:[address] ABDOMEN PELVIS WO CONTRAST ED 09/29/2024 6:[address] 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 EGFR STAT 09/29/2024 3:[address] 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 HEMOGLOBIN A1C Routine 10/04/2021 10:[address] 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 Preop testing LIPID PANEL Routine 03/09/2021 5:04 AM CDT from Last 3 Months or Most Recently Relevant to Health Maintenance Results * Cardiology Document Scan (02/22/2025 1:30 PM CDT) Anatomical Region Laterality Modality Other us Alex Garcia MD CV CARDIAC SERVICES PROC EDURES Final Result * CT Abdomen Pelvis WO Contrast (09/29/2024 6:[address] 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) Anatomical Region Laterality Modality Body N/A Computed Tomogra phy 09/29/2024 6:[address] 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 Impressions 09/29/2024 11:[address] 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 1. Minimal nonspecific bilateral perinephric stranding. No acute urinary tract findings otherwise. 2. Low stool burden with colonic diverticulosis. No acute bowel findings otherwise. 3. Enlarged prostate with distended urinary bladder. See discussion above. Stat report by [facility] Electronically signed by: Oswaldo Botello M.D. Narrative 09/29/2024 11:[address] 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 EXAMINATION: CT ABDOMEN PELVIS WO CONTRAST DATE: [...] bladder. See discussion above. Stat report by [facility] Electronically signed by: Oswaldo Botello M.D. Reese Waller MD IMG CT PROCEDURES Final Result * (ABNORMAL) eGFR (09/29/2024 3:[address] 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) eGFR 36(L) >=60 mL/min/1. 73 m2 Comment: [...] last reviewed 2021. Blood 09/29/2024 3:[address] 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 09/29/2024 3:[address] 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 Reese Waller MD LAB BLOOD ORDERABLES Fi nal Result VALERIE [address] Department [place] [address] * (ABNORMAL) Hemoglobin A1c (10/04/2021 10:[address] 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) Hgb A1C 6.6(H) 4.0 - 5.6 % VALERIE HOUSER Estimated Average Glucose 143 mg/dL VALERIE HOUSER Comment: The ADA recommends reporting an estimated Average Glucose (eAG) with all Hemoglobin A1c results using the equation derived from a study of 507 normal and diabetic adults. Minority populations were underrepresented and children were not included. (Diabetes Care 31:2893-7836, 2008). The eAG is not equivalent to a fasting glucose. Blood 10/04/2021 10:[address] 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 10/04/2021 11:[address] 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 us Alexandre Godinez MD LAB BLOOD ORDERABLES Final Res ult [place] [address] Department [place] [address] * (ABNORMAL) Lipid panel (03/09/2021 5:04 AM [...] Newman NP LAB [place]LO[place] [id number] [address] Department [place] [address] from Last 3 Months or Most Recently Relevant to Health Maintenance Insurance [facility] MEDICARE ADVANTAGE [facility] MEDICARE ADVANTAGE [employer] MEDICARE ADVANTAGE [facility] MDCR HMO REF Advance Directives For more information, please contact: [phone] * Full Code (Latest Code Status on File) Date Activated Date Inactivated Comments 01/07/2023 9:03 PM 01/08/2023 8:55 PM * Full Code Date Activated Date Inactivated Comments 10/08/2021 6:40 PM 10/09/2021 6:54 PM * Full Code Date Activated Date Inactivated Comments 04/13/2021 8:38 PM 04/15/2021 9:43 PM * Full Code Date Activated Date Inactivated Comments 03/08/2021 12:34 PM 03/10/2021 11:12 PM Care Teams Store Operations Manager Relationship Specialty Start Date End Date Naveen Lott MD [address] [facility] [address] [place] [address] PCP - General 12/02/16 Alexandre Godinez MD [address] [facility] [address] [place] [address] Surgeon Neurosurgery 03/10/21 [place] [id number] [facility] [address] [place] [address] Consulting Physician Neurology 03/10/21
--- OUTSIDE RECORDS SUMMARY | 2025-03-04 14:21 | XMS_ITS | Clinical Summary ---
Author Organization [facility] Address [address] [place] [address] Care Team Providers Care Panel Cutter Name Role Phone Naveen Lott MD Primary Care Provider [phone] Source Comments [facility],non-owned Affiliates and Associated Physician Practices is amultiple site organization consisting of ambulatory clinics and hospital sitesin [place], [place], [place] and [place]. This disclosure is being madepursuant to the Care Everywhere program and may not contain all information available regarding this patient. Last updated 18.[facility] Allergies No known active allergies Medications * [...] patient's age to complete this topic Insurance [facility] MANAGED MEDICARE ADV [place] [id number] [facility] MANAGED MEDICARE ADV Care Teams Panel Cutter Relationship Specialty Start Date End Date Naveen Lott MD [address] [place] [address] PCP - General 03/03/21
--- OUTSIDE RECORDS SUMMARY | 2025-03-04 14:21 | XMS_ITS | Encounter Summary ---
Author Organization [facility] Address [address] [place] [address] Care Team Providers Care Insole And Outsole Preparer Name Role Phone Naveen Lott MD Primary Care Provider Alexandre Godinez MD Unavailable [phone] Radha JIN MD, Can Bishop Unavailable [phone] Encounter Details Date Type Department Care Team (Late st Contact Info) Description 03/03/2025 Orders Only [facility] Cardiology [address] [place] [address] Alex Garcia MD [address] [facility] [address] [place] [address] Social History Tobacco Use Types Packs/Day Years [...] on file 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 Gender Identity Not on file Sexual Orientation Not on file documented as of this encounter Plan of Treatment Not on file documented as of this encounter Procedures Procedure Name Priority Date/Time Associated Diagnosis Comments CARDIOLOGY DOCUMENT SCAN Routine 02/22/2025 1:30 PM CDT documented in this encounter Results * Cardiology Document Scan (02/22/2025 1:30 PM CDT) Anatomical Region Laterality Modality Other Alex Garcia MD CV CARDIAC SERVICES PROC EDURES Final Result documented in this encounter Visit Diagnoses Not on filedocumented in this encounter Care Teams Insole And Outsole Preparer Relationship Specialty Start Date End Date Naveen Lott MD [address] [place] [address] PCP - General 12/02/16 Alexandre Godinez MD [address] [place] [address] Surgeon Neurosurgery 03/10/21 [place] [id number] [facility] [address] [place] [address] Consulting Physician Neurology 03/10/21 documented as of this encounter
--- OUTSIDE RECORDS SUMMARY | 2025-03-04 14:22 | XMS_ITS | Clinical Summary ---
Author Organization [facility] Address [address] [place] [address] Care Team Providers Care Documentation Billing Clerk Name Role Phone Unavailable Primary Care Provider [...] patient's age to complete this topic Insurance [facility] [place] [address]
[2025-03-04 14:26] VITALS: BP 148/87; PULSE 79; RESP 16; TEMP 36.2; O2SAT 97
--- NOTE | 2025-03-04 14:39 | ED_ITS ---
HPI - Male Genitourinary General Chief complaint: Urogenital-Male Stated complaint: andrade removal Time Seen by Provider: 03/04/25 14:32 History of Present Illness HPI Narrative: Patient is an 84-year-old male who presents ER to have his Andrade catheter removed. Is placed on 02/27/25 while he is admitted to the hospital. Occasionally he has an issue where he cannot pee. He does take Flomax. He has not been on antibiotics. He is draining fine but cannot get in with Urology to have removed for another 2 weeks and does not want wait that long. It is causing discomfort around his penis. Related Data Home Medications ?Medication ?Instructions ?Recorded ?Confirmed ?Last Taken ?Type aspirin 81 mg tablet,delayed 81 mg PO DAILY 10/16/19 02/26/25 08/23/23 08:00 History release (Adult Aspirin Regimen) clonidine HCl 0.1 mg tablet 0.1 mg PO USEASDIRECTD 08/24/23 02/26/25 Unknown History Allergies Allergy/AdvReac Type Severity Reaction Status Date / Time No Known Allergies Allergy Verified 03/01/25 11:14 Review of Systems Constitutional: Constitutional: Reports no additional constitutional complaints Gastrointestinal: Gastrointestinal: Reports no additional gastrointestinal complaints Genitourinary: Genitourinary: Reports no additional male genitourinary complaints [facility] Past Medical History Medical History Renal artery stenosis Peripheral vascular disease Coronary artery disease Colorectal cancer Type 2 diabetes mellitus Hypertension Gastroesophageal reflux disease Chronic kidney disease, stage 3 Diabetic neuropathy Mixed hyperlipidemia Carotid artery stenosis Surgical History Surgical History History of right-sided carotid endarterectomy History of cholecystectomy History of cataract extraction History of coronary artery stent placement History of colon surgery Family History Family History Mother Family history of coronary artery disease Cerebrovascular accident Sibling Family history of coronary artery disease Other Hypertension Other Diabetes mellitus Father Diabetes mellitus Other Family history of cardiovascular disease Social History Social History Social History: Surrogate medical decision maker: Cassius Pérez, brother. Code status: Full code. Smoking packs per day: 2 Smoking cigarettes per day: 40.0 Years smoked: 53 Smoking pack-years: 106.00 Smoking status: Former smoker Tobacco type: cigarettes Second hand tobacco smoke exposure: Yes Alcohol intake: never Substance use: never Substance use type: does not use Do You Feel Safe in your Home?: Yes Lack of Transportation: No Lack of Food: Never True Current Housing: I Have Housing Concerned About Future Housing: No Difficulty Paying Gas/Electric Bills: No Difficulty Paying for Meds: No Currently Unemployed: No Education: High School Diploma/GED Difficulty w/ Childcare or Family Care: No Living arrangements: alone Additional living arrangements comments: Lives in [place]. . Has 1 son. 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 Gender identity (if verbalized by the patient): Male Spiritual care concerns: No Exam Narrative: GENERAL: Well-appearing, well-nourished, and in no acute distress. ENT: Mucous membranes moist. CHEST: Clear to auscultation. No respiratory distress. HEART: Regular rate and rhythm. No murmur heard. Normal peripheral pulses. ABDOMEN: Soft, nontender, nondistended, normal active bowel sounds. EXTREMITIES: Normal range of motion. No edema. NEURO: Alert and oriented x3. PSYCH: Normal mood and affect. Course Course Emergency Course: Resting comfortably, educated that Andrade may be removed but he could develop urinary retention again. He recognizes this risk. He has no infectious symptoms. Discharge after Andrade removal. Vital Signs Vital signs: Vital Signs Temperature 97.2 F L 03/04/25 14:26 Pulse Rate 79 03/04/25 14:26 Respiratory Rate 16 03/04/25 14:26 Blood Pressure 148/87 H 03/04/25 14:26 Pulse Oximetry 97 03/04/25 14:26 Temperature 97.2 F L 03/04/25 14:26 Pulse Rate 79 03/04/25 14:26 Respiratory Rate 16 03/04/25 14:26 Blood Pressure 148/87 H 03/04/25 14:26 Pulse Oximetry 97 03/04/25 14:26 Discharge Plan Discharge Clinical Impression: Encounter for Andrade catheter removal Patient Disposition: Home Condition: Stable Instructions: Andrade Catheter Removal (DC) Additional Instructions: Return the ER if you develop urinary retention, you develop abdominal pain, you have additional concerns. Continue to take your tamsulosin at home. Patient Language: Belarusian Prescriptions: No Action aspirin [Adult Aspirin Regimen] 81 mg tablet,delayed release (DR/EC) 81 mg PO DAILY furosemide [Lasix] 20 mg tablet 20 mg PO QAM Qty: 7 0RF Incruse Ellipta 62.5 mcg/actuation blister with device 1 inh inhalation DAILY Qty: 7 0RF guaifenesin 600 mg tablet extended release 12hr 600 mg PO BID Qty: 10 0RF clonidine HCl 0.1 mg tablet 0.1 mg PO USEASDIRECTD Rx Instructions: TAKE 2 TABLETS BY MOUTH EVERY MORNING , TAKE 1 TABLET IN AFTERNOON AND TAKE 2 TABLETS AT NIGHT (DME) blood-glucose meter [Accu-Chek Jaimee Plus Meter] Misc See Rx Instructions .ROUTE .MEDSUPPLY Qty: 1 0RF Rx Instructions: Used once daily to check blood sugar (DME) lancets [Accu-Chek Multiclix Lancet] Misc See Rx Instructions .ROUTE .MEDSUPPLY Qty: 200 10RF Rx Instructions: Use once daily to check blood sugar (DME) Blood Glucose Test Strip See Rx Instructions .ROUTE .MEDSUPPLY Qty: 100 3RF Rx Instructions: Use once daily to check blood sugar gabapentin 100 mg capsule 100 mg PO TID Qty: 270 2RF pantoprazole 40 mg tablet,delayed release (DR/EC) See Rx Instructions .ROUTE .COMPLEX Qty: 180 2RF Dose Instruction: TAKE 1 TABLET BY MOUTH TWICE A DAY Rx Instructions: TAKE 1 TABLET BY MOUTH TWICE A DAY tamsulosin 0.4 mg capsule 0.4 mg PO DAILY Qty: 90 2RF nifedipine 90 mg tablet extended release See Rx Instructions .ROUTE .COMPLEX Qty: 90 2RF Dose Instruction: TAKE 1 TABLET BY MOUTH EVERY DAY Rx Instructions: TAKE 1 TABLET BY MOUTH EVERY DAY chlorthalidone 25 mg tablet 25 mg PO DAILY Qty: 30 5RF metformin 500 mg tablet extended release 24 hr 500 mg PO DAILY Qty: 90 2RF atorvastatin 40 mg tablet See Rx Instructions .ROUTE .COMPLEX Qty: 90 3RF Dose Instruction: TAKE 1 TABLET (40 MG) BY MOUTH DAILY Rx Instructions: TAKE 1 TABLET (40 MG) BY MOUTH DAILY irbesartan 300 mg tablet See Rx Instructions .ROUTE .COMPLEX Qty: 90 3RF Dose Instruction: TAKE 1 TABLET (300 MG) BY MOUTH DAILY Rx Instructions: TAKE 1 TABLET (300 MG) BY MOUTH DAILY lorazepam 0.5 mg tablet 0.5 mg PO BID PRN (Reason: anxiety) Qty: 45 0RF Follow-up/Referrals: Naveen Lott MD [Primary Care Provider] - 1 Week
--- OUTSIDE RECORDS SUMMARY | 2025-03-04 14:50 | XMS_ITS | Clinical Summary ---
Author Organization [facility] [address] Address [address] [place] [address] Care Team Providers Care Manager Room Name Role Phone Naveen Lott MD Primary Care Provider Alexandre Godinez MD Unavailable [phone] Radha JIN MD, Can Bishop Unavailable [phone] Allergies No known active allergies Medications pantoprazole [...] (08/20/2021): Added automatically from request for surgery [id number] S/P carotid endarterectomy 04/13/2021 Stenosis of right carotid artery 04/01/2021 Overview (04/01/2021): Added automatically from request for surgery [id number] [facility] 03/08/2021 Coronary artery disease invo lving [place] coronary artery of [place] heart without angina pectoris 04/27/2017 S/P coronary artery stent placement 04/27/2017 Bradycardia Encounters Date Type Department Care Team Description 03/03/2025 Orders Only [facility] Cardiology [address] [place] [address] Alex Garcia MD from Last [...] on file 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 Gender Identity Not on file Sexual Orientation Not on file Obstetrics History Last Filed Vital Signs Vital Sign Reading Time Taken Comments Blood Pressure 139/43 09/29/2024 10:05 PM DRAINAGE INSPECTOR Pulse 63 09/29/2024 10:05 PM DRAINAGE INSPECTOR Temperature 36.9 C (98.5 F) 09/29/2024 10:05 PM DRAINAGE INSPECTOR Respiratory Rate 19 09/29/2024 10:05 PM DRAINAGE INSPECTOR Oxygen Saturation 93% 09/29/2024 10:05 PM DRAINAGE INSPECTOR Inhaled Oxygen Concentration - - Weight 86.2 kg (190 lb 0.6 oz) 09/29/2024 3:08 P M DRAINAGE INSPECTOR Height 165.1 cm (5' 5) 09/29/2024 3:08 PM DRAINAGE INSPECTOR Body Mass Index 31.62 09/29/2024 3:08 PM DRAINAGE INSPECTOR Plan of Treatment Health Maintenance Due Date [...] PELVIS WO CONTRAST ED 09/29/2024 6:43 PM DRAINAGE INSPECTOR EGFR STAT 09/29/2024 3:13 PM DRAINAGE INSPECTOR HEMOGLOBIN A1C Routine 10/04/2021 10:45 AM DRAINAGE INSPECTOR Preop testing LIPID PANEL Routine 03/09/2021 5:04 AM CDT from Last 3 Months or Most Recently Relevant to Health Maintenance Results * Cardiology Document Scan (02/22/2025 1:30 PM CDT) Anatomical Region Laterality Modality Other us Alex Garcia MD CV CARDIAC SERVICES PROC EDURES Final Result * CT Abdomen Pelvis WO Contrast (09/29/2024 6:43 PM DRAINAGE INSPECTOR) Anatomical Region Laterality Modality Body N/A Computed Tomogra phy 09/29/2024 6:41 PM DRAINAGE INSPECTOR Impressions 09/29/2024 11:18 PM DRAINAGE INSPECTOR 1. Minimal nonspecific bilateral perinephric stranding. No acute urinary tract findings otherwise. 2. Low stool burden with colonic diverticulosis. No acute bowel findings otherwise. 3. Enlarged prostate with distended urinary bladder. See discussion above. Stat report by [facility] Electronically signed by: Oswaldo Botello M.D. Narrative 09/29/2024 11:18 PM DRAINAGE INSPECTOR EXAMINATION: CT ABDOMEN PELVIS WO CONTRAST DATE: [...] bladder. See discussion above. Stat report by [facility] Electronically signed by: Oswaldo Botello M.D. Reese Waller MD IMG CT PROCEDURES Final Result * (ABNORMAL) eGFR (09/29/2024 3:13 PM DRAINAGE INSPECTOR) eGFR 36(L) >=60 mL/min/1. 73 m2 Comment: [...] last reviewed 2021. Blood 09/29/2024 3:13 PM DRAINAGE INSPECTOR 09/29/2024 3:18 PM DRAINAGE INSPECTOR Reese Waller MD LAB BLOOD ORDERABLES Fi nal Result [facility] [address] [address] [place] [address] * (ABNORMAL) Hemoglobin A1c (10/04/2021 10:45 AM DRAINAGE INSPECTOR) Hgb A1C 6.6(H) 4.0 - 5.6 % VALERIE HOUSER Estimated Average Glucose 143 mg/dL VALERIE HOUSER Comment: The ADA recommends reporting an estimated Average Glucose (eAG) with all Hemoglobin A1c results using the equation derived from a study of 507 normal and diabetic adults. Minority populations were underrepresented and children were not included. (Diabetes Care 31:8369-9672, 2008). The eAG is not equivalent to a fasting glucose. Blood 10/04/2021 10:4 5 AM DRAINAGE INSPECTOR 10/04/2021 11:11 AM DRAINAGE INSPECTOR us Alexandre Godinez MD LAB BLOOD ORDERABLES Final Res ult [place] [address] [address] [place] [address] * (ABNORMAL) Lipid panel (03/09/2021 5:04 AM [...] LAB [place] [address] [address] Department [place] [address] from Last 3 Months or Most Recently Relevant to Health Maintenance Insurance [facility]ICARE ADVANTAGE [facility] Address: [id number] [place] [address] [facility] MEDICARE ADVANTAGE [facility] Address: [address] [address] [place] [address] UHC MEDICARE ADVANTAGE [facility] Address: [address] [place] [phone] [facility] MDCR HMO REF [facility] Address: [address] [place] [phone] Advance Directives For more information, please contact: [phone] * Full Code (Latest Code Status on File) Date Activated Date Inactivated Comments 01/07/2023 9:03 PM 01/08/2023 8:55 PM * Full Code Date Activated Date Inactivated Comments 10/08/2021 6:40 PM 10/09/2021 6:54 PM * Full Code Date Activated Date Inactivated Comments 04/13/2021 8:38 PM 04/15/2021 9:43 PM * Full Code Date Activated Date Inactivated Comments 03/08/2021 12:34 PM 03/10/2021 11:12 PM Care Teams Manager Room Relationship Specialty Start Date End Date Naveen Lott MD [address] [facility] [address] [place] [address] PCP - General 12/02/16 Alexandre Godinez MD [address] [facility] [address] [place] [address] Surgeon Neurosurgery 03/10/21 [place] [address] [facility] [address], [place] [address] Consulting Physician Neurology 03/10/21
--- OUTSIDE RECORDS SUMMARY | 2025-03-04 14:50 | XMS_ITS | Encounter Summary ---
Author Organization [facility] Address [address] [place] [address] Care Team Providers Care Adult Education Teacher Name Role Phone Naveen Lott MD Primary Care Provider Alexandre Godinez MD Unavailable [phone] Radha JIN MD, Can Bishop Unavailable [phone] Encounter Details Date Type Department Care Team (Late st Contact Info) Description 03/03/2025 Orders Only [facility] Cardiology [address] [place] [address] Alex Garcia MD [address] [facility] [address] [place] [address] Social History Tobacco Use Types [...] on file 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
--- OUTSIDE RECORDS SUMMARY | 2025-03-04 14:50 | XMS_ITS | Referral Summary ---
Author Organization [facility] [address] Address [address] [place] [address] Care Team Providers Care Heater Installer Name Role Phone Naveen Lott MD Primary Care Provider Alexandre Godinez MD Unavailable [phone] Radha JIN MD, Can Bishop Unavailable [phone] Encounters Date Type Department Care Team Description 03/03/2025 Orders Only [facility] Medical Group Cardiology [address] [place] [address] Alex Garcia MD from Last [...] (08/20/2021): Added automatically from request for surgery [id number] S/P carotid endarterectomy 04/13/2021 Stenosis of right carotid artery 04/01/2021 Overview (04/01/2021): Added automatically from request for surgery [id number] [facility] 03/08/2021 Coronary artery disease invo lving [place] coronary artery of [place] heart without angina pectoris 04/27/2017 S/P coronary [...] on file Legal Sex Male 9:17 AM BILINGUAL MANAGER Gender Identity Not on file Sexual Orientation Not on file Last Filed Vital Signs Vital Sign Reading Time Taken Comments Blood Pressure 139/43 09/29/2024 10:05 PM BILINGUAL MANAGER Pulse 63 09/29/2024 10:05 PM BILINGUAL MANAGER Temperature 36.9 C (98.5 F) 09/29/2024 10:05 PM BILINGUAL MANAGER Respiratory Rate 19 09/29/2024 10:05 PM BILINGUAL MANAGER Oxygen Saturation 93% 09/29/2024 10:05 PM BILINGUAL MANAGER Inhaled Oxygen Concentration - - Weight 86.2 kg (190 lb 0.6 oz) 09/29/2024 3:08 P M BILINGUAL MANAGER Height 165.1 cm (5' 5) 09/29/2024 3:08 PM BILINGUAL MANAGER Body Mass Index 31.62 09/29/2024 3:08 PM BILINGUAL MANAGER Plan of Treatment Not on file Procedures Procedure Name Priority Date/Time Associated Diagnosis Comments CARDIOLOGY DOCUMENT SCAN Routine 02/22/2025 1:[address] ABDOMEN PELVIS WO CONTRAST ED 09/29/2024 6:43 PM BILINGUAL MANAGER EGFR STAT 09/29/2024 3:13 PM BILINGUAL MANAGER HEMOGLOBIN A1C Routine 10/04/2021 10:45 AM BILINGUAL MANAGER Preop testing LIPID PANEL Routine 03/09/2021 5:04 AM CDT from Last 3 Months or Most Recently Relevant to Health Maintenance Results * Cardiology Document Scan (02/22/2025 1:30 PM CDT) Anatomical Region Laterality Modality Other us Alex Garcia MD CV CARDIAC SERVICES PROC EDURES Final Result * CT Abdomen Pelvis WO Contrast (09/29/2024 6:43 PM BILINGUAL MANAGER) Anatomical Region Laterality Modality Body N/A Computed Tomogra phy 09/29/2024 6:41 PM BILINGUAL MANAGER Impressions 09/29/2024 11:18 PM BILINGUAL MANAGER 1. Minimal nonspecific bilateral perinephric stranding. No acute urinary tract findings otherwise. 2. Low stool burden with colonic diverticulosis. No acute bowel findings otherwise. 3. Enlarged prostate with distended urinary bladder. See discussion above. Stat report by [facility] Electronically signed by: Oswaldo Botello M.D. Narrative 09/29/2024 11:18 PM BILINGUAL MANAGER EXAMINATION: CT ABDOMEN PELVIS WO CONTRAST [...] bladder. See discussion above. Stat report by [facility] Electronically signed by: Oswaldo Botello M.D. Reese Waller MD IMG CT PROCEDURES Final Result * (ABNORMAL) eGFR (09/29/2024 3:13 PM BILINGUAL MANAGER) eGFR 36(L) >=60 mL/min/1. 73 m2 [...] last reviewed 2021. Blood 09/29/2024 3:13 PM BILINGUAL MANAGER 09/29/2024 3:18 PM BILINGUAL MANAGER Reese Waller MD LAB BLOOD ORDERABLES Fi nal Result VALERIE [address] [place] [address] * (ABNORMAL) Hemoglobin A1c (10/04/2021 10:45 AM BILINGUAL MANAGER) Hgb A1C 6.6(H) 4.0 - 5.6 % VALERIE Estimated Average Glucose 143 mg/dL VALERIE HOUSER Comment: The ADA recommends reporting an estimated Average Glucose (eAG) with all Hemoglobin A1c results using the equation derived from a study of 507 normal and diabetic adults. Minority populations were underrepresented and children were not included. (Diabetes Care 31:5884-4440, 2008). The eAG is not equivalent to a fasting glucose. Blood 10/04/2021 10:4 5 AM BILINGUAL MANAGER 10/04/2021 11:11 AM BILINGUAL MANAGER us Alexandre Godinez MD LAB BLOOD ORDERABLES Final Res ult VALERIE [address] [place] [address] * (ABNORMAL) Lipid panel (03/09/2021 5:04 AM [...] LAB [place] [id number] [address] [place] [address] from Last 3 Months or Most Recently Relevant to Health Maintenance Insurance [facility] MEDICARE ADVANTAGE [facility] MEDICARE ADVANTAGE [facility] MEDICARE ADVANTAGE [facility] MDCR HMO REF Advance Directives For more information, please contact: [phone] * Full Code (Latest Code Status on File) Date Activated Date Inactivated Comments 01/07/2023 9:03 PM 01/08/2023 8:55 PM * Full Code Date Activated Date Inactivated Comments 10/08/2021 6:40 PM 10/09/2021 6:54 PM * Full Code Date Activated Date Inactivated Comments 04/13/2021 8:38 PM 04/15/2021 9:43 PM * Full Code Date Activated Date Inactivated Comments 03/08/2021 12:34 PM 03/10/2021 11:12 PM Care Teams Heater Installer Relationship Specialty Start Date End Date Naveen Lott MD [address] [address] PCP - General 12/02/16 Alexandre Godinez MD [address] [address] Surgeon Neurosurgery 03/10/21 [place] [address] [facility] [address], [place] [address] Consulting Physician Neurology 03/10/21
--- OUTSIDE RECORDS SUMMARY | 2025-03-04 14:51 | XMS_ITS | Clinical Summary ---
Author Organization [facility] Address [address] [place] [address] Care Team Providers Care Manufacturing Director Name Role Phone Unavailable Primary Care Provider [...] patient's age to complete this topic Insurance [facility]
--- OUTSIDE RECORDS SUMMARY | 2025-03-04 14:51 | XMS_ITS | Clinical Summary ---
Author Organization [facility] [employer] Address [address] [place] [address] Care Team Providers Care National Sales Director Name Role Phone Naveen Lott MD Primary Care Provider [phone] Source Comments [facility] [employer],non-owned Affiliates and Associated Physician Practices is amultiple site organization consisting of ambulatory clinics and hospital sitesin [place], [place], [place] and [place]. This disclosure is being madepursuant to the Care Everywhere program and may not contain all information available regarding this patient. Last updated 18.[facility] Allergies No known active allergies Medications * [...] to complete this topic Insurance [facility] MANAGED MEDICARE ADV [place] [id number] [facility] MANAGED MEDICARE ADV Care Teams National Sales Director Relationship Specialty Start Date End Date Naveen Lott MD [address] [place] [address] PCP - General 03/03/21
--- NOTE | 2025-03-04 14:53 | PC.NURSE ---
Pts catheter removed per verbal order of EDP Dr. Carmona
== END 2025-03-04 14:55 | disposition home or self-care (01) ==
LOC: ANHED 14:47
PROVIDERS: Emergency Provider Emergency Medicine; PCP Family Medicine
DX: Z46.6 Encounter for fitting and adjustment of urinary device (principal); E11.51 Type 2 diabetes mellitus with diabetic peripheral angiopathy without gangrene; I73.9 Peripheral vascular disease, unspecified; E11.40 Type 2 diabetes mellitus with diabetic neuropathy, unspecified; E11.22 Type 2 diabetes mellitus with diabetic chronic kidney disease; I12.9 Hypertensive chronic kidney disease with stage 1 through stage 4 chronic kidney disease, or unspecified chronic kidney disease; N18.30 Chronic kidney disease, stage 3 unspecified; I65.29 Occlusion and stenosis of unspecified carotid artery; I70.1 Atherosclerosis of renal artery; E78.2 Mixed hyperlipidemia; K21.9 Gastro-esophageal reflux disease without esophagitis; Z95.5 Presence of coronary angioplasty implant and graft; Z85.038 Personal history of other malignant neoplasm of large intestine; Z87.891 Personal history of nicotine dependence; Z98.49 Cataract extraction status, unspecified eye; Z90.49 Acquired absence of other specified parts of digestive tract; Z79.82 Long term (current) use of aspirin; Z79.84 Long term (current) use of oral hypoglycemic drugs; Z79.899 Other long term (current) drug therapy
CPT/HCPCS: 99282

== ENCOUNTER 2025-03-05 13:13 | Emergency (ER) | payer MEDICARE, SELFPAY ==
--- OUTSIDE RECORDS SUMMARY | 2025-03-05 13:16 | XMS_ITS | Clinical Summary ---
Author Organization [facility] [address] Address [address] [place] [address] Care Team Providers Care College Or University Registrar Name Role Phone Naveen Lott MD Primary Care Provider Alexandre Godinez MD Unavailable [phone] Radha JIN MD, Can Bishop Unavailable [phone] Allergies No known active allergies Medications pantoprazole [...] (08/20/2021): Added automatically from request for surgery [id number] S/P carotid endarterectomy 04/13/2021 Stenosis of right carotid artery 04/01/2021 Overview (04/01/2021): Added automatically from request for surgery [id number] [facility] 03/08/2021 Coronary artery disease invo lving [place] coronary artery of [place] heart without angina pectoris 04/27/2017 S/P coronary artery stent placement 04/27/2017 Bradycardia Encounters Date Type Department Care Team Description 03/03/2025 Orders Only [facility] Medical Group Cardiology [address] [place] [address] Alex Garcia MD from Last [...] on file Legal Sex Male 9:17 AM PARTICIPANT ADMINISTRATOR Gender Identity Not on file Sexual Orientation Not on file Obstetrics History Last Filed Vital Signs Vital Sign Reading Time Taken Comments Blood Pressure 139/43 09/29/2024 10:05 PM PARTICIPANT ADMINISTRATOR Pulse 63 09/29/2024 10:05 PM PARTICIPANT ADMINISTRATOR Temperature 36.9 C (98.5 F) 09/29/2024 10:05 PM PARTICIPANT ADMINISTRATOR Respiratory Rate 19 09/29/2024 10:05 PM PARTICIPANT ADMINISTRATOR Oxygen Saturation 93% 09/29/2024 10:05 PM PARTICIPANT ADMINISTRATOR Inhaled Oxygen Concentration - - Weight 86.2 kg (190 lb 0.6 oz) 09/29/2024 3:08 P M PARTICIPANT ADMINISTRATOR Height 165.1 cm (5' 5) 09/29/2024 3:08 PM PARTICIPANT ADMINISTRATOR Body Mass Index 31.62 09/29/2024 3:08 PM PARTICIPANT ADMINISTRATOR Plan of Treatment Health Maintenance Due Date [...] PELVIS WO CONTRAST ED 09/29/2024 6:43 PM PARTICIPANT ADMINISTRATOR EGFR STAT 09/29/2024 3:13 PM PARTICIPANT ADMINISTRATOR HEMOGLOBIN A1C Routine 10/04/2021 10:45 AM PARTICIPANT ADMINISTRATOR Preop testing LIPID PANEL Routine 03/09/2021 5:04 AM CDT from Last 3 Months or Most Recently Relevant to Health Maintenance Results * Cardiology Document Scan (02/22/2025 1:30 PM CDT) Anatomical Region Laterality Modality Other us Alex Garcia MD CV CARDIAC SERVICES PROC EDURES Final Result * CT Abdomen Pelvis WO Contrast (09/29/2024 6:43 PM PARTICIPANT ADMINISTRATOR) Anatomical Region Laterality Modality Body N/A Computed Tomogra phy 09/29/2024 6:41 PM PARTICIPANT ADMINISTRATOR Impressions 09/29/2024 11:18 PM PARTICIPANT ADMINISTRATOR 1. Minimal nonspecific bilateral perinephric stranding. No acute urinary tract findings otherwise. 2. Low stool burden with colonic diverticulosis. No acute bowel findings otherwise. 3. Enlarged prostate with distended urinary bladder. See discussion above. Stat report by [facility] Electronically signed by: Oswaldo Botello M.D. Narrative 09/29/2024 11:18 PM PARTICIPANT ADMINISTRATOR EXAMINATION: CT ABDOMEN PELVIS WO CONTRAST DATE: [...] bladder. See discussion above. Stat report by [facility] Electronically signed by: Oswaldo Botello M.D. Reese Waller MD IMG CT PROCEDURES Final Result * (ABNORMAL) eGFR (09/29/2024 3:13 PM PARTICIPANT ADMINISTRATOR) eGFR 36(L) >=60 mL/min/1. 73 m2 Comment: [...] last reviewed 2021. Blood 09/29/2024 3:13 PM PARTICIPANT ADMINISTRATOR 09/29/2024 3:18 PM PARTICIPANT ADMINISTRATOR Reese Waller MD LAB BLOOD ORDERABLES Fi nal Result VALERIE [address] [place] [address] * (ABNORMAL) Hemoglobin A1c (10/04/2021 10:45 AM PARTICIPANT ADMINISTRATOR) Hgb A1C 6.6(H) 4.0 - 5.6 % VALERIE HOUSER Estimated Average Glucose 143 mg/dL VALERIE HOUSER Comment: The ADA recommends reporting an estimated Average Glucose (eAG) with all Hemoglobin A1c results using the equation derived from a study of 507 normal and diabetic adults. Minority populations were underrepresented and children were not included. (Diabetes Care 31:2079-3079, 2008). The eAG is not equivalent to a fasting glucose. Blood 10/04/2021 10:4 5 AM PARTICIPANT ADMINISTRATOR 10/04/2021 11:11 AM PARTICIPANT ADMINISTRATOR us Alexandre Godinez MD LAB BLOOD ORDERABLES Final Res ult VALERIE [address] Department [place] [address] * (ABNORMAL) Lipid panel (03/09/2021 5:04 AM [...] LAB [place] [id number] [address] Department [place] [address] from Last 3 Months or Most Recently Relevant to Health Maintenance Insurance [facility] MEDICARE ADVANTAGE [facility] MEDICARE ADVANTAGE [employer] MEDICARE ADVANTAGE [facility] MDCR HMO REF Advance Directives For more information, please contact: [phone] * Full Code (Latest Code Status on File) Date Activated Date Inactivated Comments 01/07/2023 9:03 PM 01/08/2023 8:55 PM * Full Code Date Activated Date Inactivated Comments 10/08/2021 6:40 PM 10/09/2021 6:54 PM * Full Code Date Activated Date Inactivated Comments 04/13/2021 8:38 PM 04/15/2021 9:43 PM * Full Code Date Activated Date Inactivated Comments 03/08/2021 12:34 PM 03/10/2021 11:12 PM Care Teams College Or University Registrar Relationship Specialty Start Date End Date Naveen Lott MD [address] [facility] [address] [place] [address] PCP - General 12/02/16 Alexandre Godinez MD [address] [facility] [address] [place] [address] Surgeon Neurosurgery 03/10/[place] [address] [facility] [address] [address] Consulting Physician Neurology 03/10/21
--- OUTSIDE RECORDS SUMMARY | 2025-03-05 13:16 | XMS_ITS | Clinical Summary ---
Author Organization [facility] Address [address] [place] [address] Care Team Providers Care Quality Tech Name Role Phone Unavailable Primary Care Provider [...] patient's age to complete this topic Insurance [facility]
--- OUTSIDE RECORDS SUMMARY | 2025-03-05 13:16 | XMS_ITS | Clinical Summary ---
Author Organization [facility] Address [address] [place] [address] Phone Care Team Providers Care Risk Control Specialist Name Role Phone Naveen Lott MD Primary Care Provider [phone] Allergies No known active allergies Medications atorvastatin [...] (09/09/2021): Added automatically from request for surgery [id number] History of carotid endarterectomy 04/13/2021 History of [...] on file Legal Sex Male 1:43 PM [facility] Gender Identity Not on file [...] / Low and Medium Risk (1 of 2 - PCV) 1992 Influenza Vaccine (Season Ended) 2025 08/04/20 21 [place] [address] Care Teams Risk Control Specialist Relationship Specialty Start Date End Date Naveen Lott MD [address] [facility] [address] [facility] [address] [place] [address] PCP - General Internal Medicine 09/07/21
--- OUTSIDE RECORDS SUMMARY | 2025-03-05 13:16 | XMS_ITS | Referral Summary ---
Author Organization [facility] [address] Address [address] [place] [address] Care Team Providers Care Superintendent Greens Name Role Phone Naveen Lott MD Primary Care Provider Alexandre Godinez MD Unavailable [phone] Radha JIN MD, Can Bishop Unavailable [phone] Encounters Date Type Department Care Team Description 03/03/2025 Orders Only [facility] Medical Group Cardiology [address] [place] [address] Alex Garcia MD from Last [...] (08/20/2021): Added automatically from request for surgery [id number] S/P carotid endarterectomy 04/13/2021 Stenosis of right carotid artery 04/01/2021 Overview (04/01/2021): Added automatically from request for surgery [id number] [facility] 03/08/2021 Coronary artery disease invo lving [place] coronary artery of [place] heart without angina pectoris 04/27/2017 S/P coronary [...] on file Legal Sex Male 9:17 AM HOME ENERGY RATER Gender Identity Not on file Sexual Orientation Not on file Last Filed Vital Signs Vital Sign Reading Time Taken Comments Blood Pressure 139/43 09/29/2024 10:05 PM HOME ENERGY RATER Pulse 63 09/29/2024 10:05 PM HOME ENERGY RATER Temperature 36.9 C (98.5 F) 09/29/2024 10:05 PM HOME ENERGY RATER Respiratory Rate 19 09/29/2024 10:05 PM HOME ENERGY RATER Oxygen Saturation 93% 09/29/2024 10:05 PM HOME ENERGY RATER Inhaled Oxygen Concentration - - Weight 86.2 kg (190 lb 0.6 oz) 09/29/2024 3:08 P M HOME ENERGY RATER Height 165.1 cm (5' 5) 09/29/2024 3:08 PM HOME ENERGY RATER Body Mass Index 31.62 09/29/2024 3:08 PM HOME ENERGY RATER Plan of Treatment Not on file Procedures Procedure Name Priority Date/Time Associated Diagnosis Comments CARDIOLOGY DOCUMENT SCAN Routine 02/22/2025 1:[address] ABDOMEN PELVIS WO CONTRAST ED 09/29/2024 6:43 PM HOME ENERGY RATER EGFR STAT 09/29/2024 3:13 PM HOME ENERGY RATER HEMOGLOBIN A1C Routine 10/04/2021 10:45 AM HOME ENERGY RATER Preop testing LIPID PANEL Routine 03/09/2021 5:04 AM CDT from Last 3 Months or Most Recently Relevant to Health Maintenance Results * Cardiology Document Scan (02/22/2025 1:30 PM CDT) Anatomical Region Laterality Modality Other us Alex Garcia MD CV CARDIAC SERVICES PROC EDURES Final Result * CT Abdomen Pelvis WO Contrast (09/29/2024 6:43 PM HOME ENERGY RATER) Anatomical Region Laterality Modality Body N/A Computed Tomogra phy 09/29/2024 6:41 PM HOME ENERGY RATER Impressions 09/29/2024 11:18 PM HOME ENERGY RATER 1. Minimal nonspecific bilateral perinephric stranding. No acute urinary tract findings otherwise. 2. Low stool burden with colonic diverticulosis. No acute bowel findings otherwise. 3. Enlarged prostate with distended urinary bladder. See discussion above. Stat report by [facility] Electronically signed by: Oswaldo Botello M.D. Narrative 09/29/2024 11:18 PM HOME ENERGY RATER EXAMINATION: CT ABDOMEN PELVIS WO CONTRAST DATE: [...] bladder. See discussion above. Stat report by [facility] Electronically signed by: Oswaldo Botello M.D. Reese Waller MD IMG CT PROCEDURES Final Result * (ABNORMAL) eGFR (09/29/2024 3:13 PM HOME ENERGY RATER) eGFR 36(L) >=60 mL/min/1. 73 m2 Comment: [...] last reviewed 2021. Blood 09/29/2024 3:13 PM HOME ENERGY RATER 09/29/2024 3:18 PM HOME ENERGY RATER Reese Waller MD LAB BLOOD ORDERABLES Fi nal Result VALERIE [address] [place] [address] * (ABNORMAL) Hemoglobin A1c (10/04/2021 10:45 AM HOME ENERGY RATER) Hgb A1C 6.6(H) 4.0 - 5.6 % VALERIE Estimated Average Glucose 143 mg/dL VALERIE HOUSER Comment: The ADA recommends reporting an estimated Average Glucose (eAG) with all Hemoglobin A1c results using the equation derived from a study of 507 normal and diabetic adults. Minority populations were underrepresented and children were not included. (Diabetes Care 31:2972-2839, 2008). The eAG is not equivalent to a fasting glucose. Blood 10/04/2021 10:4 5 AM HOME ENERGY RATER 10/04/2021 11:11 AM HOME ENERGY RATER us Alexandre Godinez MD LAB BLOOD ORDERABLES Final Res ult VALERIE [address] Department [place] [address] * (ABNORMAL) Lipid panel (03/09/2021 5:04 AM [...] LAB [place] [address] [address] Department [place] [address] from Last 3 Months or Most Recently Relevant to Health Maintenance Insurance [facility] MEDICARE ADVANT[facility] Address: [address] [address] [place] [address] [facility] MEDICARE ADVANTAGE [facility] Address: [address] [address] [place] [address] [facility] MEDICARE ADVANTAGE [facility] Address: [address] [address] [place] [address] [facility] MDCR HMO REF [facility] MED[facility] Address: [address] [address] [place] [address] Advance Directives For more information, please contact: [phone] * Full Code (Latest Code Status on File) Date Activated Date Inactivated Comments 01/07/2023 9:03 PM 01/08/2023 8:55 PM * Full Code Date Activated Date Inactivated Comments 10/08/2021 6:40 PM 10/09/2021 6:54 PM * Full Code Date Activated Date Inactivated Comments 04/13/2021 8:38 PM 04/15/2021 9:43 PM * Full Code Date Activated Date Inactivated Comments 03/08/2021 12:34 PM 03/10/2021 11:12 PM Care Teams Superintendent Greens Relationship Specialty Start Date End Date Naveen Lott MD [address] [address] PCP - General 12/02/16 Alexandre Godinez MD [address] [address] Surgeon Neurosurgery 03/10/[place] [address] [facility] [address] [address] Consulting Physician Neurology 03/10/21
--- OUTSIDE RECORDS SUMMARY | 2025-03-05 13:16 | XMS_ITS | Clinical Summary ---
Author Organization [facility] [employer] Address [address] [place] [address] Care Team Providers Care Mental Health Program Director Name Role Phone Naveen Lott MD Primary Care Provider [phone] Source Comments [facility] [employer],non-owned Affiliates and Associated Physician Practices is amultiple site organization consisting of ambulatory clinics and hospital sitesin [place], [place], [place] and [place]. This disclosure is being madepursuant to the Care Everywhere program and may not contain all information available regarding this patient. Last updated 18.[facility] [employer] Allergies No known active allergies Medications * [...] age to complete this topic Insurance [facility] MANAGED MEDICARE ADV [place] [id number] [facility] MANAGED MEDICARE ADV Care Teams Mental Health Program Director Relationship Specialty Start Date End Date Naveen Lott MD [address] [place] [address] PCP - General 03/03/21
--- OUTSIDE RECORDS SUMMARY | 2025-03-05 13:16 | XMS_ITS | Encounter Summary ---
Author Organization [facility] Address [address] [place] [address] Care Team Providers Care Works Manager Name Role Phone Naveen Lott MD Primary Care Provider Alexandre Godinez MD Unavailable [phone] Radha JIN MD, Can Bishop Unavailable [phone] Encounter Details Date Type Department Care Team (Late st Contact Info) Description 03/03/2025 Orders Only [facility] Medical Group Cardiology [address] [place] [address] Alex Garcia MD [address] [facility] [address] [place] [address] Social History Tobacco Use Types [...] on file Legal Sex Male 9:17 AM STRATEGY INTERN Gender Identity Not on file Sexual Orientation [...] on filedocumented in this encounter Care Teams Works Manager Relationship Specialty Start Date End Date Naveen Lott MD [address] [place] [address] [place] [address] PCP - General 12/02/16 Alexandre Godinez MD [address] [facility] [address] [place] [address] Surgeon Neurosurgery 03/10/[place] [address] [facility] [address] [place] [address] Consulting Physician Neurology 03/10/21 documented as of this encounter
[2025-03-05 13:17] VITALS: BP 132/59; PULSE 94; RESP 16; TEMP 36.6; O2SAT 95
[2025-03-05 14:01] LABS: Add Urine Microscopic? NO; Appearance Urine Clear (Clear); Glucose Urine UA Negative (Negative); Leukocyte Esterase Ur Negative LEU/UL (Negative); Nitrate Urine Negative (Negative); Specific Grav Ur 1.007 (1.001-1.035)
--- OUTSIDE RECORDS SUMMARY | 2025-03-05 14:04 | XMS_ITS | Clinical Summary ---
Author Organization [facility] [employer] Address [address] [place] [address] Care Team Providers Care Fruit Press Operator Name Role Phone Naveen Lott MD Primary Care Provider [phone] Source Comments [facility] [employer],non-owned Affiliates and Associated Physician Practices is amultiple site organization consisting of ambulatory clinics and hospital sitesin [place], [place], [place] and [place]. This disclosure is being madepursuant to the Care Everywhere program and may not contain all information available regarding this patient. Last updated 18.[facility] Allergies No known active allergies Medications * [...] complete this topic Insurance [facility] MANAGED MEDICARE ADV [place] [id number] [facility] MANAGED MEDICARE ADV Care Teams Fruit Press Operator Relationship Specialty Start Date End Date Naveen Lott MD [address] [place] [address] PCP - General 03/03/21
--- OUTSIDE RECORDS SUMMARY | 2025-03-05 14:04 | XMS_ITS | Encounter Summary ---
Author Organization [facility] Healthcare Address [address] [place] [address] Care Team Providers Care Manager Metrology Name Role Phone Naveen Lott MD Primary Care Provider Alexandre Godinez MD Unavailable Radha JIN MD, Can Bishop Unavailable [phone] Encounter Details Date Type Department Care Team (Late st Contact Info) Description 03/03/2025 Orders Only [facility] Medical Group Cardiology [address] [place] [address] Alex Garcia MD [address] [facility] [address] [place] [address] Social History Tobacco Use Types [...] on file 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 [address] [place] [address] Consulting Physician Neurology 03/10/21 documented as of this encounter
--- OUTSIDE RECORDS SUMMARY | 2025-03-05 14:04 | XMS_ITS | Clinical Summary ---
Author Organization [facility] Address [address] [place] [address] Phone Care Team Providers Care Natural Gas Technician Name Role Phone Naveen Lott MD Primary Care Provider [phone] Allergies No known active allergies Medications atorvastatin [...] (09/09/2021): Added automatically from request for surgery [id number] History of carotid endarterectomy 04/13/2021 History of [...] file Legal Sex Male 1:43 PM [facility] Gender Identity Not on file Sexual [...] Ended) 2025 08/04/20 21 Insurance Care Teams Natural Gas Technician Relationship Specialty Start Date End Date Naveen Lott MD [address] [facility] [address] [facility] [address] [place] [address] PCP - General Internal Medicine 09/07/21
--- OUTSIDE RECORDS SUMMARY | 2025-03-05 14:04 | XMS_ITS | Clinical Summary ---
Author Organization [facility] [address] Address [address] [place] [address] Care Team Providers Care Direct Marketing Coordinator Name Role Phone Naveen Lott MD Primary Care Provider Alexandre Godinez MD Unavailable [phone] Radha JIN MD, Can Bishop Unavailable [phone] Allergies No known active allergies Medications pantoprazole [...] (08/20/2021): Added automatically from request for surgery [id number] S/P carotid endarterectomy 04/13/2021 Stenosis of right carotid artery 04/01/2021 Overview (04/01/2021): Added automatically from request for surgery [id number] [facility] [address] 03/08/2021 Coronary artery disease invo lving k[place] coronary artery of [place] heart without angina pectoris 04/27/2017 S/P coronary artery stent placement 04/27/2017 Bradycardia Encounters Date Type Department Care Team Description 03/03/2025 Orders Only [facility] Medical Group Cardiology [address] [place] [address] Alex Garcia MD from Last [...] on file Legal Sex Male 9:17 AM STRIP ROLLER Gender Identity Not on file Sexual Orientation Not on file Obstetrics History Last Filed Vital Signs Vital Sign Reading Time Taken Comments Blood Pressure 139/43 09/29/2024 10:05 PM STRIP ROLLER Pulse 63 09/29/2024 10:05 PM STRIP ROLLER Temperature 36.9 C (98.5 F) 09/29/2024 10:05 PM STRIP ROLLER Respiratory Rate 19 09/29/2024 10:05 PM STRIP ROLLER Oxygen Saturation 93% 09/29/2024 10:05 PM STRIP ROLLER Inhaled Oxygen Concentration - - Weight 86.2 kg (190 lb 0.6 oz) 09/29/2024 3:08 P M STRIP ROLLER Height 165.1 cm (5' 5) 09/29/2024 3:08 PM STRIP ROLLER Body Mass Index 31.62 09/29/2024 3:08 PM STRIP ROLLER Plan of Treatment Health Maintenance Due Date [...] PELVIS WO CONTRAST ED 09/29/2024 6:43 PM STRIP ROLLER EGFR STAT 09/29/2024 3:13 PM STRIP ROLLER HEMOGLOBIN A1C Routine 10/04/2021 10:45 AM STRIP ROLLER Preop testing LIPID PANEL Routine 03/09/2021 5:04 AM CDT from Last 3 Months or Most Recently Relevant to Health Maintenance Results * Cardiology Document Scan (02/22/2025 1:30 PM CDT) Anatomical Region Laterality Modality Other us Alex Garcia MD CV CARDIAC SERVICES PROC EDURES Final Result * CT Abdomen Pelvis WO Contrast (09/29/2024 6:43 PM STRIP ROLLER) Anatomical Region Laterality Modality Body N/A Computed Tomogra phy 09/29/2024 6:41 PM STRIP ROLLER Impressions 09/29/2024 11:18 PM STRIP ROLLER 1. Minimal nonspecific bilateral perinephric stranding. No acute urinary tract findings otherwise. 2. Low stool burden with colonic diverticulosis. No acute bowel findings otherwise. 3. Enlarged prostate with distended urinary bladder. See discussion above. Stat report by [facility] Electronically signed by: Oswaldo Botello M.D. Narrative 09/29/2024 11:18 PM STRIP ROLLER EXAMINATION: CT ABDOMEN PELVIS WO CONTRAST DATE: [...] bladder. See discussion above. Stat report by [facility] Electronically signed by: Oswaldo Botello M.D. Reese Waller MD IMG CT PROCEDURES Final Result * (ABNORMAL) eGFR (09/29/2024 3:13 PM STRIP ROLLER) eGFR 36(L) >=60 mL/min/1. 73 m2 Comment: [...] last reviewed 2021. Blood 09/29/2024 3:13 PM STRIP ROLLER 09/29/2024 3:18 PM STRIP ROLLER Reese Waller MD LAB BLOOD ORDERABLES Fi nal Result VALER[facility] [address] [place] [address] * (ABNORMAL) Hemoglobin A1c (10/04/2021 10:45 AM STRIP ROLLER) Hgb A1C 6.6(H) 4.0 - 5.6 % [facility]IE HOUSER Estimated Average Glucose 143 mg/dL [facility] HOUSER Comment: The ADA recommends reporting an estimated Average Glucose (eAG) with all Hemoglobin A1c results using the equation derived from a study of 507 normal and diabetic adults. Minority populations were underrepresented and children were not included. (Diabetes Care 31:2424-6539, 2008). The eAG is not equivalent to a fasting glucose. Blood 10/04/2021 10:4 5 AM STRIP ROLLER 10/04/2021 11:11 AM STRIP ROLLER us Alexandre Godinez MD LAB BLOOD ORDERABLES Final Res ult [facility] [address] [address] [place] [address] * (ABNORMAL) Lipid panel (03/09/2021 5:04 AM [...] LAB [place]LO[place] [address] [address] Department [place] [address] from Last 3 Months or Most Recently Relevant to Health Maintenance Insurance [facility] MEDICARE ADVANTAGE [facility] MEDICARE ADVANTAGE [employer] MEDICARE ADVANTAGE [facility] MDCR HMO REF Advance Directives For more information, please contact: [phone] * Full Code (Latest Code Status on File) Date Activated Date Inactivated Comments 01/07/2023 9:03 PM 01/08/2023 8:55 PM * Full Code Date Activated Date Inactivated Comments 10/08/2021 6:40 PM 10/09/2021 6:54 PM * Full Code Date Activated Date Inactivated Comments 04/13/2021 8:38 PM 04/15/2021 9:43 PM * Full Code Date Activated Date Inactivated Comments 03/08/2021 12:34 PM 03/10/2021 11:12 PM Care Teams Direct Marketing Coordinator Relationship Specialty Start Date End Date Naveen Lott MD [address] [facility] [address] [place] [address] PCP - General 12/02/16 Alexandre Godinez MD [address] [facility] [address] [place] [address] Surgeon Neurosurgery 03/10/21 [place] [address] [facility] [address], [place] [address] Consulting Physician Neurology 03/10/21
--- OUTSIDE RECORDS SUMMARY | 2025-03-05 14:04 | XMS_ITS | Referral Summary ---
Author Organization [facility] [address] Address [address] [place] [address] Care Team Providers Care Problem Manager Name Role Phone Naveen Lott MD Primary Care Provider Alexandre Godinez MD Unavailable [phone] Radha JIN MD, Can Bishop Unavailable [phone] Encounters Date Type Department Care Team Description 03/03/2025 Orders Only [facility] Medical Group Cardiology [address] [place] [address] Alex Garcia MD from Last [...] (08/20/2021): Added automatically from request for surgery [id number] S/P carotid endarterectomy 04/13/2021 Stenosis of right carotid artery 04/01/2021 Overview (04/01/2021): Added automatically from request for surgery [id number] [facility] 03/08/2021 Coronary artery disease invo lving alutiiq coronary artery of alutiiq heart without angina pectoris 04/27/2017 S/P coronary [...] on file Legal Sex Male 9:17 AM STEAM BOX HAND Gender Identity Not on file Sexual Orientation Not on file Last Filed Vital Signs Vital Sign Reading Time Taken Comments Blood Pressure 139/43 09/29/2024 10:05 PM STEAM BOX HAND Pulse 63 09/29/2024 10:05 PM STEAM BOX HAND Temperature 36.9 C (98.5 F) 09/29/2024 10:05 PM STEAM BOX HAND Respiratory Rate 19 09/29/2024 10:05 PM STEAM BOX HAND Oxygen Saturation 93% 09/29/2024 10:05 PM STEAM BOX HAND Inhaled Oxygen Concentration - - Weight 86.2 kg (190 lb 0.6 oz) 09/29/2024 3:08 P M STEAM BOX HAND Height 165.1 cm (5' 5) 09/29/2024 3:08 PM STEAM BOX HAND Body Mass Index 31.62 09/29/2024 3:08 PM STEAM BOX HAND Plan of Treatment Not on file Procedures Procedure Name Priority Date/Time Associated Diagnosis Comments CARDIOLOGY DOCUMENT SCAN Routine 02/22/2025 1:[address] ABDOMEN PELVIS WO CONTRAST ED 09/29/2024 6:43 PM STEAM BOX HAND EGFR STAT 09/29/2024 3:13 PM STEAM BOX HAND HEMOGLOBIN A1C Routine 10/04/2021 10:45 AM STEAM BOX HAND Preop testing LIPID PANEL Routine 03/09/2021 5:04 AM CDT from Last 3 Months or Most Recently Relevant to Health Maintenance Results * Cardiology Document Scan (02/22/2025 1:30 PM CDT) Anatomical Region Laterality Modality Other us Alex Garcia MD CV CARDIAC SERVICES PROC EDURES Final Result * CT Abdomen Pelvis WO Contrast (09/29/2024 6:43 PM STEAM BOX HAND) Anatomical Region Laterality Modality Body N/A Computed Tomogra phy 09/29/2024 6:41 PM STEAM BOX HAND Impressions 09/29/2024 11:18 PM STEAM BOX HAND 1. Minimal nonspecific bilateral perinephric stranding. No acute urinary tract findings otherwise. 2. Low stool burden with colonic diverticulosis. No acute bowel findings otherwise. 3. Enlarged prostate with distended urinary bladder. See discussion above. Stat report by [facility] Electronically signed by: Oswaldo Botello M.D. Narrative 09/29/2024 11:18 PM STEAM BOX HAND EXAMINATION: CT ABDOMEN PELVIS WO CONTRAST [...] bladder. See discussion above. Stat report by [facility] Electronically signed by: Oswaldo Botello M.D. Reese Waller MD IMG CT PROCEDURES Final Result * (ABNORMAL) eGFR (09/29/2024 3:13 PM STEAM BOX HAND) eGFR 36(L) >=60 mL/min/1. 73 m2 [...] last reviewed 2021. Blood 09/29/2024 3:13 PM STEAM BOX HAND 09/29/2024 3:18 PM STEAM BOX HAND Reese Waller MD LAB BLOOD ORDERABLES Fi nal Result [facility] [address] [address] Department [place] [address] * (ABNORMAL) Hemoglobin A1c (10/04/2021 10:45 AM STEAM BOX HAND) Hgb A1C 6.6(H) 4.0 - 5.6 % VALERIE Estimated Average Glucose 143 mg/dL VALERIE HOUSER Comment: The ADA recommends reporting an estimated Average Glucose (eAG) with all Hemoglobin A1c results using the equation derived from a study of 507 normal and diabetic adults. Minority populations were underrepresented and children were not included. (Diabetes Care 31:0474-0573, 2008). The eAG is not equivalent to a fasting glucose. Blood 10/04/2021 10:4 5 AM STEAM BOX HAND 10/04/2021 11:11 AM STEAM BOX HAND us Alexandre Godinez MD LAB BLOOD ORDERABLES Final Res ult [facility] [address] Department [place] [address] * (ABNORMAL) Lipid panel (03/09/2021 5:04 AM [...] LAB [place] [address] [address] Department [place] [address] from Last 3 Months or Most Recently Relevant to Health Maintenance Insurance [facility] MEDICARE ADVANTAGE [facility] MEDICARE Address: [address] [address] [place] [address] [facility] MEDICARE ADVANTAGE [facility] MEDICARE Address: [address] [address] [place] [address] [facility] MEDICARE ADVANTAGE [facility] MEDICARE Address: [address] [address] [place] [address] [facility] MDCR HMO REF [facility] MEDICARE Address: [address] [address] [place] [address] Advance Directives For more information, please contact: [phone] * Full Code (Latest Code Status on File) Date Activated Date Inactivated Comments 01/07/2023 9:03 PM 01/08/2023 8:55 PM * Full Code Date Activated Date Inactivated Comments 10/08/2021 6:40 PM 10/09/2021 6:54 PM * Full Code Date Activated Date Inactivated Comments 04/13/2021 8:38 PM 04/15/2021 9:43 PM * Full Code Date Activated Date Inactivated Comments 03/08/2021 12:34 PM 03/10/2021 11:12 PM Care Teams Problem Manager Relationship Specialty Start Date End Date Naveen Lott MD [address] [address] PCP - General 12/02/16 Alexandre Godinez MD [address] [address] Surgeon Neurosurgery 03/10/21 [place] [address] [facility] [address] [address] Consulting Physician Neurology 03/10/21
--- OUTSIDE RECORDS SUMMARY | 2025-03-05 14:04 | XMS_ITS | Clinical Summary ---
Author Organization [facility] Address [address] [place] [address] Care Team Providers Care Machinist General Name Role Phone Unavailable Primary Care Provider [...] patient's age to complete this topic Insurance [facility]
--- NOTE | 2025-03-05 14:13 | ED.MALEGU ---
HPI - Male Genitourinary General Chief complaint: Urogenital-Male Stated complaint: urinary retention Time Seen by Provider: 03/05/25 13:31 History of Present Illness HPI Narrative: Patient is an 84-year-old male who presents ER with urinary retention. He had his Martinez catheter removed yesterday at his own request and has subsequently stopped urinating again. Bladder scan shows greater than 900 mL of fluid. No blood. No dysuria. No other concerns. Mild suprapubic discomfort. Related Data Home Medications ?Medication ?Instructions ?Recorded ?Confirmed ?Last Taken ?Type aspirin 81 mg tablet,delayed 81 mg PO DAILY 10/16/19 02/26/25 08/23/23 08:00 History release (Adult Aspirin Regimen) clonidine HCl 0.1 mg tablet 0.1 mg PO USEASDIRECTD 08/24/23 02/26/25 Unknown History Allergies Allergy/AdvReac Type Severity Reaction Status Date / Time No Known Allergies Allergy Verified 03/01/25 11:14 Review of Systems Constitutional: Constitutional: Reports no additional constitutional complaints Gastrointestinal: Gastrointestinal: Reports no additional gastrointestinal complaints Genitourinary: Genitourinary: Reports no additional male genitourinary complaints [facility] Past Medical History Medical History Renal artery stenosis Peripheral vascular disease Coronary artery disease Colorectal cancer Type 2 diabetes mellitus Hypertension Gastroesophageal reflux disease Chronic kidney disease, stage 3 Diabetic neuropathy Mixed hyperlipidemia Carotid artery stenosis Surgical History Surgical History History of right-sided carotid endarterectomy History of cholecystectomy History of cataract extraction History of coronary artery stent placement History of colon surgery Family History Family History Mother Family history of coronary artery disease Cerebrovascular accident Sibling Family history of coronary artery disease Other Hypertension Other Diabetes mellitus Father Diabetes mellitus Other Family history of cardiovascular disease Social History Social History Social History: Surrogate medical decision maker: Cassius Beto, brother. Code status: Full code. Smoking packs per day: 2 Smoking cigarettes per day: 40.0 Years smoked: 53 Smoking pack-years: 106.00 Smoking status: Former smoker Tobacco type: cigarettes Second hand tobacco smoke exposure: Yes Alcohol intake: never Substance use: never Substance use type: does not use Do You Feel Safe in your Home?: Yes Lack of Transportation: No Lack of Food: Never True Current Housing: I Have Housing Concerned About Future Housing: No Difficulty Paying Gas/Electric Bills: No Difficulty Paying for Meds: No Currently Unemployed: No Education: High School Diploma/GED Difficulty w/ Childcare or Family Care: No Living arrangements: alone Additional living arrangements comments: Lives in [place]. . Has 1 son. 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 Gender identity (if verbalized by the patient): Male Spiritual care concerns: No Exam Narrative: GENERAL: Well-appearing, well-nourished, and in no acute distress. HEAD: Normocephalic, atraumatic. CHEST: Clear to auscultation. No respiratory distress. HEART: Regular rate and rhythm. Normal peripheral pulses. ABDOMEN: Soft, nontender, nondistended. EXTREMITIES: Normal range of motion. No edema. NEURO: Alert and oriented x3. PSYCH: Normal mood and affect. Course Course Emergency Course: Martinez placed. Urine without infection. Discharge home. Follow-up with urology. Vital Signs Vital signs: Vital Signs Temperature 98 F 03/05/25 13:17 Pulse Rate 94 03/05/25 13:17 Respiratory Rate 16 03/05/25 13:17 Blood Pressure 132/59 L 03/05/25 13:17 Pulse Oximetry 95 03/05/25 13:17 Oxygen Delivery Room Air 03/05/25 13:17 Temperature 98 F 03/05/25 13:17 Pulse Rate 94 03/05/25 13:17 Respiratory Rate 16 03/05/25 13:17 Blood Pressure 132/59 L 03/05/25 13:17 Pulse Oximetry 95 03/05/25 13:17 Oxygen Delivery Room Air 03/05/25 13:17 MDM - Male Genitourinary Lab Data Labs: Lab Results 03/05/25 Range/Units 13:53 Urine Color Yellow (Yellow) Urine Appearance Clear (Clear) Urine pH 6.5 (5.0-9.0) Ur Specific [place] 1.007 (1.001-1.035) Urine Protein Negative (Negative) mg/dL Urine Glucose (UA) Negative (Negative) mg/dL Urine Ketones Negative (Negative) mg/dL Ur Blood (Man) Negative (Negative) Urine Nitrate Negative (Negative) Urine Bilirubin Negative (Negative) Urine Urobilinogen 0.2 (<2.0) mg/dL Leukocyte Esterase Rfl Negative (Negative) MAURICE/UL Discharge Plan Discharge Clinical Impression: Acute urinary retention Patient Disposition: Home Condition: Stable Instructions: Urinary Retention in Men (ED), Martinez Catheter Placement and Care (ED) Additional Instructions: Return ER if you have fever 100.4? F, you cannot keep down food water, you lose consciousness, you have additional concerns. Patient Language: Turkish Prescriptions: No Action aspirin [Adult Aspirin Regimen] 81 mg tablet,delayed release (DR/EC) 81 mg PO DAILY furosemide [Lasix] 20 mg tablet 20 mg PO QAM Qty: 7 0RF Incruse Ellipta 62.5 mcg/actuation blister with device 1 inh inhalation DAILY Qty: 7 0RF guaifenesin 600 mg tablet extended release 12hr 600 mg PO BID Qty: 10 0RF clonidine HCl 0.1 mg tablet 0.1 mg PO USEASDIRECTD Rx Instructions: TAKE 2 TABLETS BY MOUTH EVERY MORNING , TAKE 1 TABLET IN AFTERNOON AND TAKE 2 TABLETS AT NIGHT (DME) blood-glucose meter [Accu-Chek Jaimee Plus Meter] Misc See Rx Instructions .ROUTE .MEDSUPPLY Qty: 1 0RF Rx Instructions: Used once daily to check blood sugar (DME) lancets [Accu-Chek Multiclix Lancet] Misc See Rx Instructions .ROUTE .MEDSUPPLY Qty: 200 10RF Rx Instructions: Use once daily to check blood sugar (DME) Blood Glucose Test Strip See Rx Instructions .ROUTE .MEDSUPPLY Qty: 100 3RF Rx Instructions: Use once daily to check blood sugar gabapentin 100 mg capsule 100 mg PO TID Qty: 270 2RF pantoprazole 40 mg tablet,delayed release (DR/EC) See Rx Instructions .ROUTE .COMPLEX Qty: 180 2RF Dose Instruction: TAKE 1 TABLET BY MOUTH TWICE A DAY Rx Instructions: TAKE 1 TABLET BY MOUTH TWICE A DAY tamsulosin 0.4 mg capsule 0.4 mg PO DAILY Qty: 90 2RF nifedipine 90 mg tablet extended release See Rx Instructions .ROUTE .COMPLEX Qty: 90 2RF Dose Instruction: TAKE 1 TABLET BY MOUTH EVERY DAY Rx Instructions: TAKE 1 TABLET BY MOUTH EVERY DAY chlorthalidone 25 mg tablet 25 mg PO DAILY Qty: 30 5RF metformin 500 mg tablet extended release 24 hr 500 mg PO DAILY Qty: 90 2RF atorvastatin 40 mg tablet See Rx Instructions .ROUTE .COMPLEX Qty: 90 3RF Dose Instruction: TAKE 1 TABLET (40 MG) BY MOUTH DAILY Rx Instructions: TAKE 1 TABLET (40 MG) BY MOUTH DAILY irbesartan 300 mg tablet See Rx Instructions .ROUTE .COMPLEX Qty: 90 3RF Dose Instruction: TAKE 1 TABLET (300 MG) BY MOUTH DAILY Rx Instructions: TAKE 1 TABLET (300 MG) BY MOUTH DAILY lorazepam 0.5 mg tablet 0.5 mg PO BID PRN (Reason: anxiety) Qty: 45 0RF Follow-up/Referrals: Navene Lott MD [Primary Care Provider] - 1 Week
[2025-03-05 14:26] VITALS: BP 125/59; PULSE 79; RESP 18; O2SAT 98
== END 2025-03-05 14:26 | disposition home or self-care (01) ==
PROVIDERS: Emergency Provider Emergency Medicine; PCP Family Medicine
DX: R33.9 Retention of urine, unspecified (principal); E11.51 Type 2 diabetes mellitus with diabetic peripheral angiopathy without gangrene; I73.9 Peripheral vascular disease, unspecified; E11.40 Type 2 diabetes mellitus with diabetic neuropathy, unspecified; E11.22 Type 2 diabetes mellitus with diabetic chronic kidney disease; I12.9 Hypertensive chronic kidney disease with stage 1 through stage 4 chronic kidney disease, or unspecified chronic kidney disease; N18.30 Chronic kidney disease, stage 3 unspecified; I65.29 Occlusion and stenosis of unspecified carotid artery; I70.1 Atherosclerosis of renal artery; E78.2 Mixed hyperlipidemia; K21.9 Gastro-esophageal reflux disease without esophagitis; Z95.5 Presence of coronary angioplasty implant and graft; Z85.038 Personal history of other malignant neoplasm of large intestine; Z87.891 Personal history of nicotine dependence; Z98.49 Cataract extraction status, unspecified eye; Z90.49 Acquired absence of other specified parts of digestive tract; Z79.82 Long term (current) use of aspirin; Z79.84 Long term (current) use of oral hypoglycemic drugs; Z79.899 Other long term (current) drug therapy
CPT/HCPCS: 51702; 81003; 99283

== ENCOUNTER 2025-03-21 18:38 | Emergency (ER) | payer MEDICARE, SELFPAY ==
--- OUTSIDE RECORDS SUMMARY | 2025-03-21 18:40 | XMS_ITS | Clinical Summary ---
Author Organization [facility] Address [address] [place] [address] Care Team Providers Care Pharmacy Technician Inpatient Name Role Phone Naveen Lott MD Primary Care Provider [phone] Source Comments [facility],non-owned Affiliates and Associated Physician Practices is amultiple site organization consisting of ambulatory clinics and hospital sitesin [place], [place], [place]. This disclosure is being madepursuant to the Care Everywhere program and may not contain all information available regarding this patient. Last updated 18.[facility] Allergies No known active allergies Medications * [...] MEDICARE AWV CALENDAR YEAR 2024 INFLUENZA VACCINE (#1) 2025 08/04/2021 HEPATITIS B VACCINE Aged Out No longe [...] patient's age to complete this topic Insurance [facility] MANAGED MEDICARE ADV [place] [id number] [facility] MANAGED MEDICARE ADV Care Teams Pharmacy Technician Inpatient Relationship Specialty Start Date End Date Naveen Lott MD [address] [place] [address] PCP - General 03/03/21
--- OUTSIDE RECORDS SUMMARY | 2025-03-21 18:40 | XMS_ITS | Referral Summary ---
Author Organization [facility] [address] [place] [address] Address [address] [facility] [address] [place] [address] Care Team Providers Care Ediphone Operator Name Role Phone Naveen Lott MD Primary Care Provider Alexandre Godinez MD Unavailable [phone] Rahda JIN MD, Can Bishop Unavailable [phone] Encounters Date Type Department Care Team Description 03/11/2025 2:15 PM CDT Office Visit [facility] Cardiology at [address] [place] [id number] Alex Garcia MD Coronary 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[place] coronary artery of [place] heart without angina pectoris (Primary Dx); S/P coronary artery stent placement 03/03/2025 Orders Only [facility] Cardiology [address] [place] [address] [address] [place] [address] Alex Garcia MD from Last 3 Months Allergies No known active allergies Medications pantoprazole DR (PROTONIX) 40 mg EC tablet take 1 tablet (40MG) by oral route every day 0 12/03/19 11 Active tamsulosin (FLOMAX) 0.4 mg capsule,extende d release 24hr Take one by mouth one time per day 0 0 11/09/19 08 Active atorvastatin (LIPITOR) 40 mg tablet Take 1 tablet (40 mg total) by mouth daily Active Ferrex 150 150 mg iron capsule Take 1 capsule (150 mg total) by mouth daily 03/06/20 21 Active gabapentin (NEURONTIN) 100 mg capsule Take 1 capsule (100 mg total) by mouth 3 (three) times a day 09/03/20 21 Active irbesartan (AVAPRO) 300 mg tablet Take 1 tablet (300 mg total) by mouth daily Active metFORMIN XR (GLUCOPHAGE XR) 500 mg 24 hr tablet Take 1 tablet (500 mg total) by mouth daily with dinner 07/29/20 21 Active NIFEdipine CC 60 mg 24 hr tablet Take 1 tablet (60 mg total) by mouth with evening meal 09/23/19 22 Active LORazepam (ATIVAN) 0.5 mg tablet Take 1 tablet (0.5 mg total) by mouth daily as needed 09/01/20 22 Active aspirin 81 mg enteric coated tablet Take 1 tablet (81 mg total) by mouth every evening Active cloNIDine (CATAPRES) 0.1 mg tabletIndicatio ns:Labile hypertension TAKE 2 TABLETS BY MOUTH EVERY MORNING , TAKE 1 TABLET IN AFTERNOON AND TAKE 2 TABLETS AT NIGHT 150 tablet 3 03/11/20 25 Active chlorthalidone (HYGROTON) 25 mg tablet Take 1 tablet (25 mg total) by mouth daily 01/22/20 25 Active hydroCHLOROthia zide (HYDRODIURIL) 25 mg tablet Take 1 tablet (25 mg total) by mouth daily 09/26/19 23 025 Discontinued( erapy completed) cloNIDine (CATAPRES) 0.1 mg tabletIndicatio ns:Labile hypertension TAKE 2 TABLETS BY MOUTH EVERY MORNING , TAKE 1 TABLET IN AFTERNOON AND TAKE 2 TABLETS AT NIGHT 150 tablet 2 12/17/19 25 025 Discontinued Active Problems Problem Noted Date Diagnosed Date [...] (08/20/2021): Added automatically from request for surgery [id number] S/P carotid endarterectomy 04/13/2021 Stenosis of right carotid artery 04/01/2021 Overview (04/01/2021): Added automatically from request for surgery [id number] Weakness 03/08/2021 Coronary artery disease invo lving [place] coronary artery of [place] heart without angina pectoris 04/27/2017 S/P coronary [...] on file Legal Sex Male 9:17 AM 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 Gender Identity Not on file Sexual Orientation Not on file Last Filed Vital Signs Vital Sign Reading Time Taken Comments Blood Pressure 132/52 03/11/2025 2:00 PM CDT Pulse 77 03/11/2025 2:00 PM CDT Temperature 36.9 C (98.5 F) 09/29/2024 10:05 PM 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 Respiratory Rate 19 09/29/2024 10:05 PM 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 Oxygen Saturation 92% 03/11/2025 2:00 PM CDT Inhaled Oxygen Concentration - - Weight 83 kg (183 lb) 03/11/2025 2:00 PM CDT Height 165.1 cm (5' 5) 03/11/2025 2:00 PM CDT Body Mass Index 30.45 03/11/2025 2:00 PM CDT Plan of Treatment Not on file Procedures Procedure Name Priority Date/Time Associated Diagnosis Comments CARDIOLOGY DOCUMENT SCAN Routine 02/22/2025 1:[address] ABDOMEN PELVIS WO CONTRAST ED 09/29/2024 6:43 PM 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 EGFR STAT 09/29/2024 3:13 PM 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 HEMOGLOBIN A1C Routine 10/04/2021 10:45 AM 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 Preop testing LIPID PANEL Routine 03/09/2021 5:04 AM CDT from Last 3 Months or Most Recently Relevant to Health Maintenance Results * Cardiology Document Scan (02/22/2025 1:30 PM CDT) Anatomical Region Laterality Modality Other us Alex Garcia MD CV CARDIAC SERVICES PROC EDURES Final Result * CT Abdomen Pelvis WO Contrast (09/29/2024 6:43 PM 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) Anatomical Region Laterality Modality Body N/A Computed Tomogra phy 09/29/2024 6:41 PM 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 Impressions 09/29/2024 11:18 PM 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 1. Minimal nonspecific bilateral perinephric stranding. No acute urinary tract findings otherwise. 2. Low stool burden with colonic diverticulosis. No acute bowel findings otherwise. 3. Enlarged prostate with distended urinary bladder. See discussion above. Stat report by [facility] Electronically signed by: Oswaldo Botello M.D. Narrative 09/29/2024 11:18 PM 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 EXAMINATION: CT ABDOMEN PELVIS WO CONTRAST [...] Result * (ABNORMAL) eGFR (09/29/2024 3:13 PM 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) eGFR 36(L) >=60 mL/min/1. 73 m2 [...] last reviewed 2021. Blood 09/29/2024 3:13 PM 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 09/29/2024 3:18 PM 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 Reese Waller MD LAB BLOOD ORDERABLES Fi nal Result Performing Organization Address [facility] Co de Phone Number AMISHERASMO HOUSER [address] [employer] [place] [address] * (ABNORMAL) Hemoglobin A1c (10/04/2021 10:45 AM 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) Hgb A1C 6.6(H) 4.0 - 5.6 % VALERIE Estimated Average Glucose 143 mg/dL VALERIE Comment: The ADA recommends reporting an estimated Average Glucose (eAG) with all Hemoglobin A1c results using the equation derived from a study of 507 normal and diabetic adults. Minority populations were underrepresented and children were not included. (Diabetes Care 31:2625-2554, 2008). The eAG is not equivalent to a fasting glucose. Blood 10/04/2021 10:4 5 AM 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 10/04/2021 11:11 AM 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 us Alexandre Godinez MD LAB BLOOD ORDERABLES Final Res ult Performing Organization Address City/[facility]/ZIP Co de Phone Number VALERIE HOUSER [address] [employer] [place] [address] * (ABNORMAL) Lipid panel (03/09/2021 5:04 AM [...] Pediatrics 2011;128:S213 2. NCEP Expert Panel. Circulation 2003;110:227 Current Interpretive Data was last revised on [...] Pediatrics 2011;128:S213 2. NCEP Expert Panel. Circulation 2003;110:227 Current Interpretive Data was last revised on [...] LAB BLOOD ORDERABLES Final Result VALERIE HOUSER [address] Department [place] [address] from Last 3 Months or Most Recently Relevant to Health Maintenance Insurance [facility] ADVANTAGE [facility] ADV[facility] Advance Directives For more information, please contact: [phone] * Full Code (Latest Code Status on File) Date Activated Date Inactivated Comments 01/07/2023 9:03 PM 01/08/2023 8:55 PM * Full Code Date Activated Date Inactivated Comments 10/08/2021 6:40 PM 10/09/2021 6:54 PM * Full Code Date Activated Date Inactivated Comments 04/13/2021 8:38 PM 04/15/2021 9:43 PM * Full Code Date Activated Date Inactivated Comments 03/08/2021 12:34 PM 03/10/2021 11:12 PM Care Teams Ediphone Operator Relationship Specialty Start Date End Date Naveen Lott MD [address] [address] PCP - General 12/02/16 Alexandre Godinez MD [address] [facility] [address] [address] Surgeon Neurosurgery 03/10/21 [place] [address] [address] Consulting Physician Neurology 03/10/21
--- OUTSIDE RECORDS SUMMARY | 2025-03-21 18:40 | XMS_ITS | Clinical Summary ---
Author Organization [facility] [address] Address [address] [place] [address] Care Team Providers Care Supervisor Powdered Sugar Name Role Phone Naveen Lott MD Primary Care Provider Alexandre Godinez MD Unavailable [phone] Radha JIN MD, Can Bishop Unavailable [phone] Allergies No known active allergies Medications pantoprazole [...] (08/20/2021): Added automatically from request for surgery [id number] S/P carotid endarterectomy 04/13/2021 Stenosis of right carotid artery 04/01/2021 Overview (04/01/2021): Added automatically from request for surgery [id number] Fawad 03/08/2021 Coronary artery disease invo lving [place] coronary artery of [place] heart without angina pectoris 04/27/2017 S/P coronary artery stent placement 04/27/2017 Bradycardia Encounters Date Type Department Care Team Description 03/11/2025 2:15 PM CDT Office Visit [facility] Cardiology at [address] [place] [address] Alex Garcia MD Coronary 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[place] coronary artery of [place] heart without angina pectoris (Primary Dx); S/P coronary artery stent placement 03/03/2025 Orders Only [facility] Cardiology [address] [place] [address] Aelx Garcia MD from Last 3 Months Surgical [...] 1 [phone] - 2006 Smokeless Tobacco: Never Comments:2007 Alcohol Use Standard Drinks/Week Comments No 0 [...] on file Legal Sex 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 Gender Identity Not on file Sexual Orientation Not on file Obstetrics History Last Filed Vital Signs Vital Sign Reading Time Taken Comments Blood Pressure 132/52 03/11/2025 2:00 PM CDT Pulse 77 03/11/2025 2:00 PM CDT Temperature 36.9 C (98.5 F) 09/29/2024 10:05 PM MANAGER Respiratory Rate 19 09/29/2024 10:05 PM MANAGER Oxygen Saturation 92% 03/11/2025 2:00 PM CDT Inhaled Oxygen Concentration - - Weight 83 kg (183 lb) 03/11/2025 2:00 PM CDT Height 165.1 cm (5' 5) 03/11/2025 2:00 PM CDT Body Mass Index 30.45 03/11/2025 2:00 PM CDT Plan of Treatment Health Maintenance Due [...] PELVIS WO CONTRAST ED 09/29/2024 6:43 PM MANAGER EGFR STAT 09/29/2024 3:13 PM MANAGER HEMOGLOBIN A1C Routine 10/04/2021 10:45 AM MANAGER Preop testing LIPID PANEL Routine 03/09/2021 5:04 AM CDT from Last 3 Months or Most Recently Relevant to Health Maintenance Results * Cardiology Document Scan (02/22/2025 1:30 PM CDT) Anatomical Region Laterality Modality Other us Alex Garcia MD CV CARDIAC SERVICES PROC EDURES Final Result * CT Abdomen Pelvis WO Contrast (09/29/2024 6:43 PM MANAGER) Anatomical Region Laterality Modality Body N/A Computed Tomogra phy 09/29/2024 6:41 PM MANAGER Impressions 09/29/2024 11:18 PM MANAGER 1. Minimal nonspecific bilateral perinephric stranding. No acute urinary tract findings otherwise. 2. Low stool burden with colonic diverticulosis. No acute bowel findings otherwise. 3. Enlarged prostate with distended urinary bladder. See discussion above. Stat report by [facility] Electronically signed by: Oswaldo Botello M.D. Narrative 09/29/2024 11:18 PM MANAGER EXAMINATION: CT ABDOMEN PELVIS WO CONTRAST [...] bladder. See discussion above. Stat report by [facility] Electronically signed by: Oswaldo Botello M.D. Reese Waller MD IM CT PROCEDURES Final Result * (ABNORMAL) eGFR (09/29/2024 3:13 PM MANAGER) eGFR 36(L) >=60 mL/min/1. 73 m2 [...] last reviewed 2021. Blood 09/29/2024 3:13 PM MANAGER 09/29/2024 3:18 PM MANAGER Reese Waller MD LAB BLOOD ORDERABLES Fi nal Result Performing Organization Address City/[facility] Co de Phone Number AMISHERASMO HOUSER [address] [place] [address] * (ABNORMAL) Hemoglobin A1c (10/04/2021 10:45 AM MANAGER) Hgb A1C 6.6(H) 4.0 - 5.6 % VALERIE Estimated Average Glucose 143 mg/dL VALERIE Comment: The ADA recommends reporting an estimated Average Glucose (eAG) with all Hemoglobin A1c results using the equation derived from a study of 507 normal and diabetic adults. Minority populations were underrepresented and children were not included. (Diabetes Care 31:4993-5864, 2008). The eAG is not equivalent to a fasting glucose. Blood 10/04/2021 10:4 5 AM MANAGER 10/04/2021 11:11 AM MANAGER us Alexandre Godinez MD LAB BLOOD ORDERABLES Final Res ult Performing Organization Address City/[facility]/ZIP Co de Phone Number VALERIE HOUSER [address] [place] [address] * (ABNORMAL) Lipid panel (03/09/2021 5:04 AM [...] NP LAB BLOOD ORDERABLES Final Result VALERIE [address] Department [place] [address] from Last 3 Months or Most Recently Relevant to Health Maintenance Insurance [facility] MEDICARE ADVANTAGE [facility]ICARE Address: [facility] [address] [place] [address] [facility] MEDIC[facility] Address: [address] [address] [place] [address] [facility] MEDICARE Address: [address] [address] [place] [address] [facility] MEDICARE Address: [address] [address] [place] [address] Advance Directives For more information, please contact: [phone] * Full Code (Latest Code Status on File) Date Activated Date Inactivated Comments 01/07/2023 9:03 PM 01/08/2023 8:55 PM * Full Code Date Activated Date Inactivated Comments 10/08/2021 6:40 PM 10/09/2021 6:54 PM * Full Code Date Activated Date Inactivated Comments 04/13/2021 8:38 PM 04/15/2021 9:43 PM * Full Code Date Activated Date Inactivated Comments 03/08/2021 12:34 PM 03/10/2021 11:12 PM Care Teams Supervisor Powdered Sugar Relationship Specialty Start Date End Date Naveen Lott MD [address] [address] PCP - General 12/02/16 Alexandre Godinez MD [address] [facility] [address] [address] Surgeon Neurosurgery 03/10/21 [place] [id number] [address] Consulting Physician Neurology 03/10/21
--- OUTSIDE RECORDS SUMMARY | 2025-03-21 18:40 | XMS_ITS | Clinical Summary ---
Author Organization [facility] Address [address] [place] [address] Care Team Providers Care General Assistant Name Role Phone Unavailable Primary Care Provider [...] patient's age to complete this topic Insurance [facility]
--- OUTSIDE RECORDS SUMMARY | 2025-03-21 18:40 | XMS_ITS | Clinical Summary ---
Author Organization [facility] Address [address] [place] [address] Phone Care Team Providers Care General Magistrate Name Role Phone Naveen Lott MD Primary Care Provider [phone] Allergies No known active allergies Medications atorvastatin [...] (09/09/2021): Added automatically from request for surgery [id number] History of carotid endarterectomy 04/13/2021 History of [...] on file Legal Sex Male 1:43 PM [facility] Gender Identity Not on file Sexual Orientation [...] of 2 - PCV) 1992 Influenza Vaccine (#1) 2025 08/04/2021 Insurance Care Teams General Magistrate Relationship Specialty Start Date End Date Naveen Lott MD [address] [facility] [address] [facility] [address] [place] [address] PCP - General Internal Medicine 09/07/21
[2025-03-21 18:42] VITALS: BP 146/42; PULSE 85; RESP 16; TEMP 36.6; O2SAT 95
[2025-03-21 22:23] VITALS: BP 140/86; PULSE 75; RESP 17; TEMP 36.8; O2SAT 98
--- NOTE | 2025-03-21 22:51 | ED_ITS ---
HPI - Male Genitourinary General Chief complaint: Urogenital-Male Stated complaint: andrade not draining Time Seen by Provider: 03/21/25 22:29 History of Present Illness HPI Narrative: Patient is an 84-year-old male who presents to the ER with urinary retention and lack of urine production in his leg bag. He reports his Andrade catheter stopped draining earlier today. At the time of examination patient's urinary leg bag is full of clear, alena urine. He denies any abdominal pain, recent fevers, or bladder spasms. Patient reports he has a follow-up appointment with Urology on Monday. He endorses a history of diabetes, nerve pain, hyperlipidemia, and hypertension. Related Data Home Medications ?Medication ?Instructions ?Recorded ?Confirmed ?Last Taken ?Type aspirin 81 mg tablet,delayed 81 mg PO DAILY 10/16/19 03/13/25 08/23/23 08:00 History release (Adult Aspirin Regimen) clonidine HCl 0.1 mg tablet 0.1 mg PO USEASDIRECTD 08/24/23 03/13/25 Unknown History Allergies Allergy/AdvReac Type Severity Reaction Status Date / Time No Known Allergies Allergy Verified 03/21/25 22:22 Review of Systems Review of Systems: All systems reviewed & are unremarkable except as noted in HPI and below PMFSH Past Medical History Medical History Renal artery stenosis Peripheral vascular disease Coronary artery disease Colorectal cancer Type 2 diabetes mellitus Hypertension Gastroesophageal reflux disease Chronic kidney disease, stage 3 Diabetic neuropathy Mixed hyperlipidemia Carotid artery stenosis Surgical History Surgical History History of right-sided carotid endarterectomy History of cholecystectomy History of cataract extraction History of coronary artery stent placement History of colon surgery Family History Family History Mother Family history of coronary artery disease Cerebrovascular accident Sibling Family history of coronary artery disease Other Hypertension Other Diabetes mellitus Father Diabetes mellitus Other Family history of cardiovascular disease Social History Social History Social History: Surrogate medical decision maker: Cassius Beto, brother. Code status: Full code. Smoking packs per day: 2 Smoking cigarettes per day: 40.0 Years smoked: 53 Smoking pack-years: 106.00 Smoking status: Former smoker Tobacco type: cigarettes Second hand tobacco smoke exposure: Yes Alcohol intake: never Substance use: never Substance use type: does not use Do You Feel Safe in your Home?: Yes Lack of Transportation: No Lack of Food: Never True Current Housing: I Have Housing Concerned About Future Housing: No Difficulty Paying Gas/Electric Bills: No Difficulty Paying for Meds: No Currently Unemployed: No Education: High School Diploma/GED Difficulty w/ Childcare or Family Care: No Living arrangements: alone Additional living arrangements comments: Lives in [place]. . Has 1 son. 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 Gender identity (if verbalized by the patient): Male Sexual Orientation (if Verbalized by the Patient): Straight or Heterosexual Spiritual care concerns: No Exam Narrative: GENERAL: Well appearing, well-nourished, non-toxic, in no acute distress. HEAD: Normocephalic, atraumatic. NECK: Supple. No adenopathy, no masses. RESPIRATORY: Airway patent, respirations nonlabored. Clear to auscultation bilaterally, no rales, rhonchi, wheezing. CARDIOVASCULAR: Regular rate and rhythm without murmurs, rubs, or gallops. Peripheral pulses 2+ and equal bilaterally. No CVA tenderness. ABDOMINAL: Soft, nontender, nondistended, no hepatosplenomegaly. Normoactive BS. MUSCULOSKELETAL: Moves all extremities. Strength/ROM intact without gross deformities. SKIN: Warm, dry, normal color. No rashes. NEURO: A&O X3. Speech clear. Cranial nerves II-XII intact. No ataxic movements. PSYCHIATRIC: Appropriate mood and affect. Normal interaction. : Patient has an indwelling Andrade catheter, draining clear, alena color urine Course Vital Signs Vital signs: Vital Signs Temperature 36.6 C 03/21/25 18:42 Pulse Rate 85 03/21/25 18:42 Respiratory Rate 16 03/21/25 18:42 Blood Pressure 146/42 H 03/21/25 18:42 Pulse Oximetry 95 03/21/25 18:42 Oxygen Delivery Room Air 03/21/25 18:42 Temperature 36.8 C 03/21/25 22:23 Pulse Rate 75 03/21/25 22:23 Respiratory Rate 17 03/21/25 22:23 Blood Pressure 140/86 03/21/25 22:23 Pulse Oximetry 98 03/21/25 22:23 Oxygen Delivery Room Air 03/21/25 18:42 MDM - Male Genitourinary MDM Narrative Medical decision making narrative: Patient is an 84-year-old male who presents to the ER with urinary retention and lack of urine production in his leg bag. He reports his Andrade catheter stopped draining earlier today. At the time of examination patient's urinary leg bag is full of clear, alena urine. He denies any abdominal pain, recent fevers, or bladder spasms. Patient reports he has a follow-up appointment with Urology on Monday. He endorses a history of diabetes, nerve pain, hyperlipidemia, and hypertension. Labs Ordered: None necessary Imaging Ordered: None necessary Diagnosis:. Urinary retention, now resolved Consults: Urology (outpatient), patient has an appointment set up on Monday, and 3 days. Patient Education/Shared MDM: Patient strongly advised to maintain hydration status upon discharge and follow-up with his urologist on Monday, as planned. Patient declined to have his Andrade catheter exchanged here in the ER. He reports his symptoms have resolved. He will be discharged home with any new prescriptions. Strict return precautions provided. Patient verbalized understanding and is in agreement with plan. Vital signs stable at time of discharge. All questions answered. Differential Diagnosis Differential diagnosis: Likely urinary tract infection, urethritis and acute retention of urine Discharge Plan Discharge Clinical Impression: Urinary retention, Chronic indwelling Andrade catheter Patient Disposition: Home Condition: Stable Instructions: Antibiotic Form, Andrade Catheter Placement and Care (ED) Additional Instructions: Please return to the ER with any worsening symptoms. Follow-up with your urologist on Monday as planned. Take all regularly scheduled medications. Patient Language: Georgian Prescriptions: No Action aspirin [Adult Aspirin Regimen] 81 mg tablet,delayed release (DR/EC) 81 mg PO DAILY furosemide [Lasix] 20 mg tablet 20 mg PO QAM Qty: 7 0RF Incruse Ellipta 62.5 mcg/actuation blister with device 1 inh inhalation DAILY Qty: 7 0RF guaifenesin 600 mg tablet extended release 12hr 600 mg PO BID Qty: 10 0RF clonidine HCl 0.1 mg tablet 0.1 mg PO USEASDIRECTD Rx Instructions: TAKE 2 TABLETS BY MOUTH EVERY MORNING , TAKE 1 TABLET IN AFTERNOON AND TAKE 2 TABLETS AT NIGHT (DME) blood-glucose meter [Accu-Chek Jaimee Plus Meter] Mis See Rx Instructions .ROUTE .MEDSUPPLY Qty: 1 0RF Rx Instructions: Used once daily to check blood sugar (DME) lancets [Accu-Chek Multiclix Lancet] Mis See Rx Instructions .ROUTE .MEDSUPPLY Qty: 200 10RF Rx Instructions: Use once daily to check blood sugar (DME) Blood Glucose Test Strip See Rx Instructions .ROUTE .MEDSUPPLY Qty: 100 3RF Rx Instructions: Use once daily to check blood sugar pantoprazole 40 mg tablet,delayed release (DR/EC) See Rx Instructions .ROUTE .COMPLEX Qty: 180 2RF Dose Instruction: TAKE 1 TABLET BY MOUTH TWICE A DAY Rx Instructions: TAKE 1 TABLET BY MOUTH TWICE A DAY tamsulosin 0.4 mg capsule 0.4 mg PO DAILY Qty: 90 2RF nifedipine 90 mg tablet extended release See Rx Instructions .ROUTE .COMPLEX Qty: 90 2RF Dose Instruction: TAKE 1 TABLET BY MOUTH EVERY DAY Rx Instructions: TAKE 1 TABLET BY MOUTH EVERY DAY chlorthalidone 25 mg tablet 25 mg PO DAILY Qty: 30 5RF metformin 500 mg tablet extended release 24 hr 500 mg PO DAILY Qty: 90 2RF atorvastatin 40 mg tablet See Rx Instructions .ROUTE .COMPLEX Qty: 90 3RF Dose Instruction: TAKE 1 TABLET (40 MG) BY MOUTH DAILY Rx Instructions: TAKE 1 TABLET (40 MG) BY MOUTH DAILY irbesartan 300 mg tablet See Rx Instructions .ROUTE .COMPLEX Qty: 90 3RF Dose Instruction: TAKE 1 TABLET (300 MG) BY MOUTH DAILY Rx Instructions: TAKE 1 TABLET (300 MG) BY MOUTH DAILY lorazepam 0.5 mg tablet 0.5 mg PO BID PRN (Reason: anxiety) Qty: 45 0RF gabapentin 100 mg capsule 100 mg PO TID Qty: 270 2RF Follow-up/Referrals: Naveen Lott MD [Primary Care Provider] - Time of Disposition: 22:59
--- OUTSIDE RECORDS SUMMARY | 2025-03-21 23:06 | XMS_ITS | Referral Summary ---
Author Organization [facility] [address] [place] [address] Address [address] [facility] [address] [place] [address] Care Team Providers Care Wireworker Supervisor Name Role Phone Naveen Lott MD Primary Care Provider Alexandre Godinez MD Unavailable [phone] Radha JIN MD, Can Bishop Unavailable [phone] Encounters Date Type Department Care Team Description 03/11/2025 2:15 PM CDT Office Visit [facility] Cardiology at [address] [place] [phone] Alex Garcia MD Coronary 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[place] coronary artery of [place] heart without angina pectoris (Primary Dx); S/P coronary artery stent placement 03/03/2025 Orders Only [facility] Cardiology [address] [place] [address] [address] [place] [address] Alex Garcia MD from Last [...] (08/20/2021): Added automatically from request for surgery [id number] S/P carotid endarterectomy 04/13/2021 Stenosis of right carotid artery 04/01/2021 Overview (04/01/2021): Added automatically from request for surgery [id number] Weakness 03/08/2021 Coronary artery disease invo lving [place] coronary artery of [place] heart without angina pectoris 04/27/2017 S/P coronary [...] on file Legal Sex Male 9:17 AM RAILCAR SWITCHMAN Gender Identity Not on file Sexual Orientation Not on file Last Filed Vital Signs Vital Sign Reading Time Taken Comments Blood Pressure 132/52 03/11/2025 2:00 PM CDT Pulse 77 03/11/2025 2:00 PM CDT Temperature 36.9 C (98.5 F) 09/29/2024 10:05 PM RAILCAR SWITCHMAN Respiratory Rate 19 09/29/2024 10:05 PM RAILCAR SWITCHMAN Oxygen Saturation 92% 03/11/2025 2:00 PM CDT [...] PELVIS WO CONTRAST ED 09/29/2024 6:43 PM RAILCAR SWITCHMAN EGFR STAT 09/29/2024 3:13 PM RAILCAR SWITCHMAN HEMOGLOBIN A1C Routine 10/04/2021 10:45 AM RAILCAR SWITCHMAN Preop testing LIPID PANEL Routine 03/09/2021 5:04 AM CDT from Last 3 Months or Most Recently Relevant to Health Maintenance Results * Cardiology Document Scan (02/22/2025 1:30 PM CDT) Anatomical Region Laterality Modality Other us Alex Garcia MD [facility] C[facility] SERVICES PROC EDURES Final Result * CT Abdomen Pelvis WO Contrast (09/29/2024 6:43 PM RAILCAR SWITCHMAN) Anatomical Region Laterality Modality Body N/A Computed Tomogra phy 09/29/2024 6:41 PM RAILCAR SWITCHMAN Impressions 09/29/2024 11:18 PM RAILCAR SWITCHMAN 1. Minimal nonspecific bilateral perinephric stranding. No acute urinary tract findings otherwise. 2. Low stool burden with colonic diverticulosis. No acute bowel findings otherwise. 3. Enlarged prostate with distended urinary bladder. See discussion above. Stat report by [facility] Electronically signed by: Oswaldo Botello M.D. Narrative 09/29/2024 11:18 PM RAILCAR SWITCHMAN EXAMINATION: CT ABDOMEN PELVIS WO CONTRAST DATE: [...] bladder. See discussion above. Stat report by [facility] Electronically signed by: Oswaldo Botello M.D. Reese Waller MD IMG CT PROCEDURES Final Result * (ABNORMAL) eGFR (09/29/2024 3:13 PM RAILCAR SWITCHMAN) eGFR 36(L) >=60 mL/min/1. 73 m2 Comment: [...] last reviewed 2021. Blood 09/29/2024 3:13 PM RAILCAR SWITCHMAN 09/29/2024 3:18 PM RAILCAR SWITCHMAN Reese Waller MD LAB BLOOD ORDERABLES Fi nal Result Performing Organization Address [facility] Co de Phone Number AMISHERASMO HOUSER [address] [place] [address] * (ABNORMAL) Hemoglobin A1c (10/04/2021 10:45 AM RAILCAR SWITCHMAN) Hgb A1C 6.6(H) 4.0 - 5.6 % VALERIE Estimated Average Glucose 143 mg/dL VALERIE Comment: The ADA recommends reporting an estimated Average Glucose (eAG) with all Hemoglobin A1c results using the equation derived from a study of 507 normal and diabetic adults. Minority populations were underrepresented and children were not included. (Diabetes Care 31:2580-3052, 2008). The eAG is not equivalent to a fasting glucose. Blood 10/04/2021 10:4 5 AM RAILCAR SWITCHMAN 10/04/2021 11:11 AM RAILCAR SWITCHMAN us Alexandre Godinez MD LAB BLOOD ORDERABLES Final Res ult Performing Organization Address City/[facility]/ZIP Co de Phone Number VALERIE HOUSER [address] [place] [address] * (ABNORMAL) Lipid panel (03/09/2021 5:04 AM [...] LAB BLOOD ORDERABLES Final Result VALERIE HOUSER [address] Department [place] [address] from Last 3 Months or Most Recently Relevant to Health Maintenance Insurance [facility] MEDICARE ADVANTAGE [facility] MEDICARE ADVANTAGE Advance Directives For more information, please contact: [phone] * Full Code (Latest Code Status on File) Date Activated Date Inactivated Comments 01/07/2023 9:03 PM 01/08/2023 8:55 PM * Full Code Date Activated Date Inactivated Comments 10/08/2021 6:40 PM 10/09/2021 6:54 PM * Full Code Date Activated Date Inactivated Comments 04/13/2021 8:38 PM 04/15/2021 9:43 PM * Full Code Date Activated Date Inactivated Comments 03/08/2021 12:34 PM 03/10/2021 11:12 PM Care Teams Wireworker Supervisor Relationship Specialty Start Date End Date Naveen Lott MD [address] [address] PCP - General 12/02/16 Alexandre Godinez MD [address] [facility] [address] [address] Surgeon Neurosurgery 03/10/21 [place] [id number] [address] Consulting Physician Neurology 03/10/21
--- OUTSIDE RECORDS SUMMARY | 2025-03-21 23:06 | XMS_ITS | Clinical Summary ---
Author Organization [facility] [employer] Address [address] [place] [address] Care Team Providers Care Director Multimedia Name Role Phone Naveen Lott MD Primary Care Provider [phone] Source Comments [facility] [employer],non-owned Affiliates and Associated Physician Practices is amultiple site organization consisting of ambulatory clinics and hospital sitesin [place], [place], [place] and [place]. This disclosure is being madepursuant to the Care Everywhere program and may not contain all information available regarding this patient. Last updated 18.[facility] [employer] Allergies No known active allergies Medications * [...] patient's age to complete this topic Insurance [facility] MANAGED MEDICARE ADV [place] [id number] [facility] MANAGED MEDICARE ADV Care Teams Director Multimedia Relationship Specialty Start Date End Date Naveen Lott MD [address] [place] [address] PCP - General 03/03/21
--- OUTSIDE RECORDS SUMMARY | 2025-03-21 23:06 | XMS_ITS | Clinical Summary ---
Author Organization [facility] [address] Address [address] [place] [address] Care Team Providers Care Fisher Hoop Net Name Role Phone Naveen Lott MD Primary Care Provider Alexandre Godinez MD Unavailable [phone] Radha JIN MD, Can Bishop Unavailable [phone] Allergies No known active allergies Medications pantoprazole [...] (08/20/2021): Added automatically from request for surgery [id number] S/P carotid endarterectomy 04/13/2021 Stenosis of right carotid artery 04/01/2021 Overview (04/01/2021): Added automatically from request for surgery [id number] F[place] 03/08/2021 Coronary artery disease invo lving [place] coronary artery of [place] heart without angina pectoris 04/27/2017 S/P coronary artery stent placement 04/27/2017 Bradycardia Encounters Date Type Department Care Team Description 03/11/2025 2:15 PM CDT Office Visit [facility] Cardiology at [address] [place] [address] Alex Garcia MD Coronary 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[place] coronary artery of [place] heart without angina pectoris (Primary Dx); S/P coronary artery stent placement 03/03/2025 Orders Only [facility] Cardiology [address] [place] [address] Alex Garcia MD from Last [...] on file Legal Sex Male 9:17 AM IT DIRECTOR Gender Identity Not on file Sexual Orientation Not on file Obstetrics History Last Filed Vital Signs Vital Sign Reading Time Taken Comments Blood Pressure 132/52 03/11/2025 2:00 PM CDT Pulse 77 03/11/2025 2:00 PM CDT Temperature 36.9 C (98.5 F) 09/29/2024 10:05 PM IT DIRECTOR Respiratory Rate 19 09/29/2024 10:05 PM IT DIRECTOR Oxygen Saturation 92% 03/11/2025 2:00 PM CDT [...] PELVIS WO CONTRAST ED 09/29/2024 6:43 PM IT DIRECTOR EGFR STAT 09/29/2024 3:13 PM IT DIRECTOR HEMOGLOBIN A1C Routine 10/04/2021 10:45 AM IT DIRECTOR Preop testing LIPID PANEL Routine 03/09/2021 5:04 AM CDT from Last 3 Months or Most Recently Relevant to Health Maintenance Results * Cardiology Document Scan (02/22/2025 1:30 PM CDT) Anatomical Region Laterality Modality Other us Alex Garcia MD CV CARDIAC SERVICES PROC EDURES Final Result * CT Abdomen Pelvis WO Contrast (09/29/2024 6:43 PM IT DIRECTOR) Anatomical Region Laterality Modality Body N/A Computed Tomogra phy 09/29/2024 6:41 PM IT DIRECTOR Impressions 09/29/2024 11:18 PM IT DIRECTOR 1. Minimal nonspecific bilateral perinephric stranding. No acute urinary tract findings otherwise. 2. Low stool burden with colonic diverticulosis. No acute bowel findings otherwise. 3. Enlarged prostate with distended urinary bladder. See discussion above. Stat report by [facility] Electronically signed by: Oswaldo Botello M.D. Narrative 09/29/2024 11:18 PM IT DIRECTOR EXAMINATION: CT ABDOMEN PELVIS WO CONTRAST DATE: [...] bladder. See discussion above. Stat report by [facility] Electronically signed by: Oswaldo Botello M.D. Reese Waller MD IM CT PROCEDURES Final Result * (ABNORMAL) eGFR (09/29/2024 3:13 PM IT DIRECTOR) eGFR 36(L) >=60 mL/min/1. 73 m2 Comment: [...] last reviewed 2021. Blood 09/29/2024 3:13 PM IT DIRECTOR 09/29/2024 3:18 PM IT DIRECTOR Reese Waller MD LAB BLOOD ORDERABLES Fi nal Result Performing Organization Address City/[facility] Co de Phone Number AMISHERASMO HOUSER [address] [place] [address] * (ABNORMAL) Hemoglobin A1c (10/04/2021 10:45 AM IT DIRECTOR) Hgb A1C 6.6(H) 4.0 - 5.6 % VALERIE Estimated Average Glucose 143 mg/dL VALERIE Comment: The ADA recommends reporting an estimated Average Glucose (eAG) with all Hemoglobin A1c results using the equation derived from a study of 507 normal and diabetic adults. Minority populations were underrepresented and children were not included. (Diabetes Care 31:3752-2183, 2008). The eAG is not equivalent to a fasting glucose. Blood 10/04/2021 10:4 5 AM IT DIRECTOR 10/04/2021 11:11 AM IT DIRECTOR us Alexandre Godinez MD LAB BLOOD ORDERABLES Final Res ult Performing Organization Address City/[facility]/ZIP Co de Phone Number VALERIE HOUSER [address] [place] [address] * (ABNORMAL) Lipid panel (03/09/2021 [...] NP LAB BLOOD ORDERABLES Final Result VALERIE [address] Department [place] [address] from Last 3 Months or Most Recently Relevant to Health Maintenance Insurance [facility] MEDICARE ADVANTAGE [facility] MEDICARE Address: [facility] [address] [place] [address] [facility] MEDICARE Address: [address] [address] [place] [address] [facility] MEDICARE Address: [address] [address] [place] [address] [facility] MEDICARE Address: [address] [address] [place] [address] Advance Directives For more information, please contact: [phone] * Full Code (Latest Code Status on File) Date Activated Date Inactivated Comments 01/07/2023 9:03 PM 01/08/2023 8:55 PM * Full Code Date Activated Date Inactivated Comments 10/08/2021 6:40 PM 10/09/2021 6:54 PM * Full Code Date Activated Date Inactivated Comments 04/13/2021 8:38 PM 04/15/2021 9:43 PM * Full Code Date Activated Date Inactivated Comments 03/08/2021 12:34 PM 03/10/2021 11:12 PM Care Teams Fisher Hoop Net Relationship Specialty Start Date End Date Naveen Lott MD [address] [address] PCP - General 12/02/16 Alexandre Godinez MD [address] [facility] [address] [address] Surgeon Neurosurgery 03/10/21 [place] [address] [address] Consulting Physician Neurology 03/10/21
--- OUTSIDE RECORDS SUMMARY | 2025-03-21 23:06 | XMS_ITS | Clinical Summary ---
Author Organization [facility] Address [address] [place] [address] Care Team Providers Care Business Continuity Director Name Role Phone Unavailable Primary Care [...] patient's age to complete this topic Insurance [facility]
--- OUTSIDE RECORDS SUMMARY | 2025-03-21 23:06 | XMS_ITS | Clinical Summary ---
Author Organization [facility] Address [address] [place] [address] Phone Care Team Providers Care Bag Press Operator Name Role Phone Naveen Lott MD Primary Care Provider [phone] Allergies No known active allergies Medications atorvastatin [...] (09/09/2021): Added automatically from request for surgery [id number] History of carotid endarterectomy 04/13/2021 History of [...] on file Legal Sex Male 1:43 PM [facility] Gender Identity Not on file Sexual Orientation [...] Vaccine (#1) 2025 08/04/2021 Insurance Care Teams Bag Press Operator Relationship Specialty Start Date End Date Naveen Lott MD [address] [facility] [address] [facility] [address] [place] [address] PCP - General Internal Medicine 09/07/21
[2025-03-21 23:16] VITALS: BP 136/83; PULSE 68; RESP 16; TEMP 37; O2SAT 99
== END 2025-03-21 23:17 | disposition home or self-care (01) ==
LOC: ANHED 23:04
PROVIDERS: Emergency Provider Registered Nurse; PCP Family Medicine
DX: R33.9 Retention of urine, unspecified (principal); I12.9 Hypertensive chronic kidney disease with stage 1 through stage 4 chronic kidney disease, or unspecified chronic kidney disease; E11.22 Type 2 diabetes mellitus with diabetic chronic kidney disease; N18.30 Chronic kidney disease, stage 3 unspecified; E11.51 Type 2 diabetes mellitus with diabetic peripheral angiopathy without gangrene; E78.2 Mixed hyperlipidemia; I73.9 Peripheral vascular disease, unspecified; I25.10 Atherosclerotic heart disease of native coronary artery without angina pectoris; I65.29 Occlusion and stenosis of unspecified carotid artery; I70.1 Atherosclerosis of renal artery; K21.9 Gastro-esophageal reflux disease without esophagitis; Z96.0 Presence of urogenital implants; Z95.5 Presence of coronary angioplasty implant and graft; Z85.038 Personal history of other malignant neoplasm of large intestine; Z87.891 Personal history of nicotine dependence; Z90.49 Acquired absence of other specified parts of digestive tract; Z98.49 Cataract extraction status, unspecified eye; Z79.82 Long term (current) use of aspirin; Z79.899 Other long term (current) drug therapy; Z79.84 Long term (current) use of oral hypoglycemic drugs
CPT/HCPCS: 99281

== ENCOUNTER 2025-08-16 19:43 | Emergency (ER) | payer MEDICARE, SELFPAY ==
--- NOTE | ~2025-08-16 | CT_ITS ---
EXAMINATION: CTA brain carotid DATE: 08/16/2025 21:53 INDICATION: Headache. Vision change. TECHNIQUE: Computed tomographic angiography (CTA) of the head was performed without and with 100 mL Omnipaque-350 intravenous contrast. CTA of the neck was performed with intravenous contrast. Automated exposure control and iterative reconstruction technique were employed. The dose-length product was 1765.61 mGy- cm. Maximum intensity projection and volume rendered 3D-reconstructions were created by the technologist on a separate workstation. COMPARISON: Head CT 03/06/2021, CTA 09/28/2016 FINDINGS: HEAD CTA: There are old infarcts in left cerebellum. There is an old infarct in right caudate nucleus. There are scattered areas of low attenuation in the cerebral white matter, which is within normal limits for the patient's age. There is no intracranial hemorrhage, acute infarction, or abnormal intracranial mass lesion. There is ex vacuo dilatation of frontal horn of right lateral ventricle. There is mucosal thickening in the paranasal sinuses. There are likely changes of ocular lens replacement surgeries. The mastoid air cells are normal. Right vertebral artery is dominant. There is no significant stenosis of basilar artery or the posterior cerebral arteries. The posterior communicating arteries are normal. There is no significant stenosis of intracranial right internal carotid artery. There is moderate stenosis of cavernous segment of left internal carotid artery. Anterior communicating artery is normal. There is no significant stenosis of the anterior or middle cerebral arteries. There is no aneurysm. NECK CTA: Emphysema is noted. There are no pathologically enlarged lymph nodes. There is total occlusion of proximal left vertebral artery with reconstitution. There is plaque in the proximal internal carotid arteries. There is 0% stenosis of the proximal right internal carotid artery relative to normal distal artery lumen diameter (NASCET criteria). There is 0% stenosis of the proximal left internal carotid artery relative to normal distal artery lumen diameter. There is severe stenosis of cervical spine. 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 IMPRESSION: 1. 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 2. Moderate stenosis of cavernous segment of left internal carotid artery. 3. 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 4. 0% stenosis of the proximal internal carotid arteries relative to normal distal artery lumen diameters (NASCET criteria). Reviewed, dictated and finalized at location E. A OPERATOR IMPRESSION: 1. 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 2. Moderate stenosis of cavernous segment of left internal carotid artery. 3. 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 4. 0% stenosis of the proximal internal carotid arteries relative to normal dis americo artery lumen diameters (NASCET criteria).
[2025-08-16 19:42] VITALS: BP 167/53; PULSE 79; RESP 20; TEMP 36.7; O2SAT 96
--- NOTE | 2025-08-16 20:13 | ECG_ITS ---
Test Date: 2025-08-16 20:22:27 Measurements Intervals [place] Rate: 70 P: 66 NE: 218 QRS: -63 QRSD: 104 T: 92 QT: 363 QTc: 394 Interpretive Statements SINUS RHYTHM WITH FIRST DEGREE AV BLOCK LEFT AXIS DEVIATION CANNOT R/O SEPTAL INFARCT, AGE INDETERMINATE BORDERLINE ST-T WAVE ABNORMALITY- HIGH LATERAL LEADS BASELINE ARTIFACT- I, V4-V6 ABNORMAL ECG Compared to ECG 02/22/2025 18:29:43 HEART RATE HAS DECREASED First degree AV block now present Electronically Signed On 08-17-2025 09:15:09 [employer]SULTANT by Eduardo Haywood D.O.
--- NOTE | 2025-08-16 20:23 | ED.HA ---
HPI - Headache General Chief Complaint: Headache Stated Complaint: high blood pressure, headache Time Seen by Provider: 08/16/25 20:13 History of Present Illness HPI Narrative: 85-year-old male with significant history including hypertension, coronary artery disease, stent placement, hyperlipidemia, diabetes without retinopathy, chronic kidney disease, renal artery stenosis. Patient presents to the emergency department today with a headache and some vision changes. 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 Patient states that pretty quickly after making these changes he had vision changes where he is having some red discoloration in his vision bilaterally and seeing dots in his vision from both eyes. He states that today started getting a headache and took his blood pressure was high in the 250 range. He was concerned and came to the ER. He took lorazepam prior to arrival as he thought he was having some anxiety causing the pain. Denies any chest discomfort, neck pain, vision loss, no shortness of breath, abdominal pain, back pain. No weakness in the arms or legs. No ataxia. Ambulatory with a steady gait. Denies any history of known strokes. aside from these 2 medication changes has otherwise been in his normal state of health with regular follow-ups. He has peripheral vascular disease and sees Dr. Curry his vascular doctor and has also had a bilateral carotid endarterectomy in the past. Patient is on daily aspirin. Last known well for his neurological symptoms including vision deficits was 4 days ago. REDDY started today. Related Data Home Medications ?Medication ?Instructions ?Recorded ?Confirmed ?Last Taken ?Type aspirin 81 mg tablet,delayed 81 mg PO DAILY 10/16/19 07/26/25 08/23/23 08:00 History release (Adult Aspirin Regimen) clonidine HCl 0.1 mg tablet 0.1 mg PO USEASDIRECTD 08/24/23 07/26/25 Unknown History finasteride 5 mg tablet 5 mg PO DAILY 06/09/25 07/26/25 Unknown History torsemide 10 mg tablet 10 mg PO .qod 08/12/25 Unknown History Allergies Allergy/AdvReac Type Severity Reaction Status Date / Time No Known Allergies Allergy Verified 07/21/25 08:33 Review of Systems Review of Systems: as reviewed above in HPI [facility] Past Medical History Medical History Hypertensive heart and CKD Renal artery stenosis Peripheral vascular disease Coronary artery disease Colorectal cancer Type 2 diabetes mellitus Hypertension Gastroesophageal reflux disease Chronic kidney disease, stage 3 Diabetic neuropathy Mixed hyperlipidemia Carotid artery stenosis Surgical History Surgical History History of right-sided carotid endarterectomy History of cholecystectomy History of cataract extraction History of coronary artery stent placement History of colon surgery Family History Family History Mother Family history of coronary artery disease Cerebrovascular accident Sibling Family history of coronary artery disease Other Hypertension Other Diabetes mellitus Father Diabetes mellitus Other Family history of cardiovascular disease Social History Social History Social History: Surrogate medical decision maker: Cassius Pérez, brother. Code status: Full code. Smoking packs per day: 2 Smoking cigarettes per day: 40.0 Years smoked: 53 Smoking pack-years: 106.00 Smoking status: Former smoker Tobacco type: cigarettes Second hand tobacco smoke exposure: Yes Alcohol intake: never Substance use: never Substance use type: does not use Lack of Transportation: No Lack of Food: Never True Current Housing: I Have Housing Concerned About Future Housing: No Difficulty Paying Gas/Electric Bills: No Difficulty Paying for Meds: No Currently Unemployed: No Education: High School Diploma/GED Difficulty w/ Childcare or Family Care: No Living arrangements: alone Additional living arrangements comments: Lives in [place]. . Has 1 son. 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 Gender identity (if verbalized by the patient): Male Sexual Orientation (if Verbalized by the Patient): Straight or Heterosexual Spiritual care concerns: No Exam Narrative: GENERAL: [Well-appearing, well-nourished, and in no acute distress.] HEAD: [Normocephalic, atraumatic.] EYES: [PERRLA and EOMI.] ENT: Nares clear, no rhinorrhea or epistaxis. Mucous membranes moist. NECK: Supple. CHEST: [Clear to auscultation. No respiratory distress.] HEART: [Regular rate and rhythm]. No murmur heard. [Normal peripheral pulses.] ABDOMEN: [Soft, nondistended], [nontender], [No rigidity or guarding] EXTREMITIES: Normal range of motion. [No edema.] SKIN: Warm, dry, no rash. NEURO: No facial asymmetry. Alert oriented x3. No motor or sensory deficits. No drift. No vision loss. No ataxia, ambulatory with a steady gait. Subjective visual changes from both eyes with some symmetry and red hue discoloration and red dots in his vision from both eyes. PSYCH: [Normal mood and affect.] Course Vital Signs Vital signs: Vital Signs Temperature 36.7 C 08/16/25 19:42 Pulse Rate 79 08/16/25 19:42 Respiratory Rate 20 08/16/25 19:42 Blood Pressure 167/53 H 08/16/25 19:42 Pulse Oximetry 96 08/16/25 19:42 Temperature 36.7 C 08/16/25 19:42 Pulse Rate 54 L 08/17/25 00:10 Respiratory Rate 16 08/17/25 00:10 Blood Pressure 149/50 H 08/17/25 00:10 Pulse Oximetry 97 08/17/25 00:[address] [facility] MDM Narrative Medical decision making narrative: 85-year-old male with significant history including hypertension, coronary artery disease, stent placement, hyperlipidemia, diabetes without retinopathy, chronic kidney disease, renal artery stenosis. Patient presents to the emergency department today with a headache and some vision changes. 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 Patient states that pretty quickly after making these changes he had vision changes where he is having some red discoloration in his vision bilaterally and seeing dots in his vision from both eyes. He states that today started getting a headache and took his blood pressure was high in the 250 range. He was concerned and came to the ER. He took lorazepam prior to arrival as he thought he was having some anxiety causing the pain. Denies any chest discomfort, neck pain, vision loss, no shortness of breath, abdominal pain, back pain. No weakness in the arms or legs. No ataxia. Ambulatory with a steady gait. Denies any history of known strokes. aside from these 2 medication changes has otherwise been in his normal state of health with regular follow-ups. He has peripheral vascular disease and sees Dr. Curry his vascular doctor and has also had a bilateral carotid endarterectomy in the past. Patient is on daily aspirin. Last known well for his neurological symptoms including vision deficits was 4 days ago. REDDY started today. No facial asymmetry. Alert oriented x3. No motor or sensory deficits. No drift. No vision loss. No ataxia, ambulatory with a steady gait. Subjective visual changes from both eyes with some symmetry and red hue discoloration and red dots in his vision from both eyes. patient is mildly hypertensive 167/53 but no tachycardia, fever, hypoxia. He is otherwise well-appearing and has no focal neurologic findings aside from a subjective vision changes which are from both eyes and reportedly symmetric so low suspicion cerebrovascular cause or intracranial cause. Possibly attributed to his medication changes including his torsemide being added as it does have a medication side effect profile including vision changes and symptoms started after taking the medication. Given his significant cardiac and neurological risk factors broad workup ordered including a CT of the head CT angiography. Cardiac workup with troponin EKG also obtained as well as basic laboratory studies. He was given Tylenol for his headache and re-evaluated. Lab show chronic kidney disease without any significant change. Troponin is negative. Symptoms improved on re-evaluation. Patient CT scan reports return with no acute intracranial abnormality. 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 Bilateral lens implants are seen. CTA of the head shows no occlusions stenosis or aneurysms. Prior atherosclerotic disease of the distal ICAs that were previously worked with endarterectomy on. No stenosis. CTA of the neck shows left vertebral artery occlusion with distal reconstitution. Age-indeterminate without any prior imaging. No severe stenosis or occlusion the common carotid or ICAs. Patient has been re-evaluated and states his headache is gone and his symptoms are improved. No longer having as much red discoloration and red dots in his vision both eyes. I discussed the CTA findings of the CT scans without any concrete evidence pointing towards his symptomatology and still could be a medication side effect versus pathology related to his atherosclerotic disease. Discussed options including admission to the hospital for further workup patient would prefer to go home as he feels better and does not want to be admitted. I felt this was appropriate as he has no strong neurological deficits, NIH0 and given the bilateral nature of his vision concerns most likely this is medication induced or other causes that he needs to follow up with his primary doctor/eye doctor with, but I did discuss potential for strokes and is history and strict return precautions which he verbalized understanding. Patient is safe for discharge home at this time. Differential Diagnosis Differential Diagnosis: subjective vision changes which are from both eyes and reportedly symmetric so low suspicion cerebrovascular cause or intracranial cause. Possibly attributed to his medication changes including his torsemide being added as it does have a medication side effect profile including vision changes and symptoms started after taking the medication. Lab Data MDM Lab Attestation statement: I personally reviewed the patient's lab results. 08/16/25 20:30 08/16/25 20:30 Labs: Lab Results 08/16/25 Range/Units 20:30 WBC 10.2 H (4.5-10.0) K/mm3 RBC 4.56 L (4.6-6.20) M/mm3 Hgb 11.7 L (14.0-18.0) g/dL Hct 37.8 L (42.0-52.0) % MCV 82.9 (80-100) fl MCH 25.7 L (26-34) pg MCHC 31.0 L (32-36) g/dl RDW 17.7 H (11.5-14.5) % Plt Count 332 (150-375) k/mm3 MPV 10.7 H (7.4-10.4) fl Immature Gran % (Auto) 0.6 H (0-0.5) % Neut % (Auto) 58.3 (45.5-73.1) % Lymph % (Auto) 26.3 (18.3-44.2) % [place] % (Auto) 9.1 H (2.6-8.5) % Eos % (Auto) 4.7 H (0-4.4) % Baso % (Auto) 1.0 (0.2-1.2) % Lymph # (Auto) 2.67 (0.9-3.2) K/mm3 [place] # (Auto) 0.9 H (0.1-0.6) K/mm3 Eos # (Auto) 0.5 H (0-0.3) K/mm3 Baso # (Auto) 0.1 (0.0-0.1) K/mm3 Abs Immat Gran (auto) 0.06 H (0.00-0.031) K/mm3 Absolute Neuts (auto) 5.9 (1.3-6.7) K/mm3 Absolute Nucleated RBC 0.000 (0.0-0.012) K/mm3 Nucleated RBC % 0.0 (0.0-0.2) % PT 13.0 (11.1-14.7) Seconds INR 1.0 APTT 32.3 (22.3-36.8) Seconds Sodium 140 (137-145) mmol/L Potassium 5.2 H (3.4-5.0) mmol/L Chloride 106 (98-107) mmol/L Carbon Dioxide 26 (22-30) mmol/L Anion Gap 8 (4-12) mmol/L BUN 60 H D (9-20) mg/dL Creatinine 1.70 H (0.7-1.3) mg/dL Estim Creat Clear Calc 27 ml/min Estimated GFR 39 L (59 - ) Glucose 167 H (65-110) mg/dL Calcium 9.8 (8.4-10.2) mg/dL Troponin I 0.017 (0.000-0.034) ng/mL Imaging Data Attestation: I personally reviewed and interpreted this imaging study as follows: Discharge Plan Discharge Clinical Impression: Visual color changes, History of atherosclerosis Patient Disposition: Home Condition: Stable Instructions: Antibiotic Form Additional Instructions: CT scan showed no acute hemorrhage or obvious acute large stroke. You do have some vessel blockages in your vertebral arteries with distal reconstitution so this is likely chronic and unrelated but your symptoms still do not have a definitive cause. They did improve your without any interventions. Symptoms could be medication related as you did start torsemide recently which is known to cause visual changes. Exact cause of symptoms is unknown and we did offer admission to the hospital but you would prefer to go home. Follow-up with your regular doctors and her eye doctors. Return with any emergent concerns, worsening symptoms, stroke symptoms or any other issues at any time please. Patient Language: Syrian Prescriptions: No Action aspirin [Adult Aspirin Regimen] 81 mg tablet,delayed release (DR/EC) 81 mg PO DAILY furosemide [Lasix] 20 mg tablet 20 mg PO QAM Qty: 7 0RF finasteride 5 mg tablet 5 mg PO DAILY clonidine HCl 0.1 mg tablet 0.1 mg PO USEASDIRECTD Rx Instructions: TAKE 2 TABLETS BY MOUTH EVERY MORNING , TAKE 1 TABLET IN AFTERNOON AND TAKE 2 TABLETS AT NIGHT (DME) blood-glucose meter [Accu-Chek Jaimee Plus Meter[place] [facility] [place]ructions .ROUTE .MEDSUPPLY Qty: 1 0RF Rx Instructions: Used once daily to check blood sugar (DME) Blood Glucose Test Strip See Rx Instructions .ROUTE .MEDSUPPLY Qty: 100 3RF Rx Instructions: Use once daily to check blood sugar nifedipine 90 mg tablet extended release See Rx Instructions .ROUTE .COMPLEX Qty: 90 2RF Dose Instruction: TAKE 1 TABLET BY MOUTH EVERY DAY Rx Instructions: TAKE 1 TABLET BY MOUTH EVERY DAY metformin 500 mg tablet extended release 24 hr 500 mg PO DAILY Qty: 90 2RF atorvastatin 40 mg tablet See Rx Instructions .ROUTE .COMPLEX Qty: 90 3RF Dose Instruction: TAKE 1 TABLET (40 MG) BY MOUTH DAILY Rx Instructions: TAKE 1 TABLET (40 MG) BY MOUTH DAILY irbesartan 300 mg tablet See Rx Instructions .ROUTE .COMPLEX Qty: 90 3RF Dose Instruction: TAKE 1 TABLET (300 MG) BY MOUTH DAILY Rx Instructions: TAKE 1 TABLET (300 MG) BY MOUTH DAILY gabapentin 100 mg capsule 100 mg PO TID Qty: 270 2RF tamsulosin 0.4 mg capsule 0.4 mg PO DAILY Qty: 90 2RF pantoprazole 40 mg tablet,delayed release (DR/EC) See Rx Instructions .ROUTE .COMPLEX Qty: 180 2RF Dose Instruction: TAKE 1 TABLET BY MOUTH TWICE A DAY Rx Instructions: TAKE 1 TABLET BY MOUTH TWICE A DAY chlorthalidone 25 mg tablet See Rx Instructions .ROUTE .COMPLEX Qty: 90 3RF Dose Instruction: TAKE 1 TABLET BY MOUTH EVERY DAY Rx Instructions: TAKE 1 TABLET BY MOUTH EVERY DAY lorazepam 0.5 mg tablet 0.5 mg PO BID PRN (Reason: anxiety) Qty: 45 0RF torsemide 10 mg tablet 10 mg PO .qod labetalol 300 mg tablet 300 mg PO Q12H Qty: 60 5RF Follow-up/Referrals: Naveen Lott MD [Primary Care Provider, Family Practice] Time of Disposition: 23:57
[2025-08-16 20:37] LABS: Hematocrit 37.8 % (42.0-52.0); Hemoglobin 11.7 g/dL (14.0-18.0); Immature Granulocyte Percent A 0.6 % (0-0.5); Lymphocytes Absolute Auto 2.67 K/mm3 (0.9-3.2); Mean Corpuscular HGB Conc 31.0 g/dl (32-36); Mean Corpuscular Hemoglobin 25.7 pg (26-34); Mean Corpuscular Volume 82.9 fl (80-100); Nucleated Red Blood Cells Absolute Auto 0.000 K/mm3 (0.0-0.012); Nucleated Red Blood Cells Perc 0.0 % (0.0-0.2); Platelet Count Result 332 k/mm3 (150-375); Red Blood Count 4.56 M/mm3 (4.6-6.20); White Blood Count 10.2 K/mm3 (4.5-10.0)
[2025-08-16] MEDS: ACETAMINOPHEN 500 MG TABLET 1000 MG PO (20:40)
[2025-08-16 20:46] LABS: Anion Gap 8 mmol/L (4-12); Blood Urea Nitrogen 60 mg/dL (9-20); Calcium 9.8 mg/dL (8.4-10.2); Carbon Dioxide 26 mmol/L (22-30); Chloride 106 mmol/L (98-107); Estimated CRCL calculation 27 ml/min; Estimated Glomerular Filt Rate 39; Glucose 167 mg/dL (65-110); Potassium 5.2 mmol/L (3.4-5.0); Sodium 140 mmol/L (137-145)
[2025-08-16 20:48] LABS: INR 1.0; Prothrombin Time 13.0 Seconds (11.1-14.7)
[2025-08-16 20:49] LABS: Partial Thromboplastin Time 32.3 Seconds (22.3-36.8)
[2025-08-16 20:58] LABS: Troponin I 0.017 ng/mL (0.000-0.034)
[2025-08-17 00:10] VITALS: BP 149/50; PULSE 54; RESP 16; O2SAT 97
== END 2025-08-17 00:12 | disposition home or self-care (01) ==
PROVIDERS: Emergency Provider Student in an Organized Health Care Education/Training Program; PCP Family Medicine
DX: H53.8 Other visual disturbances (principal); I25.10 Atherosclerotic heart disease of native coronary artery without angina pectoris; I12.9 Hypertensive chronic kidney disease with stage 1 through stage 4 chronic kidney disease, or unspecified chronic kidney disease; E11.22 Type 2 diabetes mellitus with diabetic chronic kidney disease; N18.30 Chronic kidney disease, stage 3 unspecified; E78.2 Mixed hyperlipidemia; Z87.891 Personal history of nicotine dependence; Z79.899 Other long term (current) drug therapy
CPT/HCPCS: 36415; 70496; 70498; 80048; 84484; 85025; 85610; 85730; 93005; 99284; A9270; Q9967

== ENCOUNTER 2025-08-24 10:30 | Inpatient (IN) | payer MEDICARE, SELFPAY ==
[2025-08-24] VITALS (37 sets, daily range): BP systolic 129–190; BP diastolic 40–145; PULSE 50–66; RESP 13–21; TEMP 36.3–36.8; O2SAT 83–100; BMI 29.0
--- NOTE | ~2025-08-24 | XR_ITS ---
EXAMINATION: XR chest 2V DATE: 08/24/2025 17:27 INDICATION: Hypoxia. TECHNIQUE: Frontal and lateral views of the chest were obtained. COMPARISON: Chest x-ray dated 03/01/2025. FINDINGS: Size is normal. Atherosclerotic aorta. Emphysematous lungs without acute findings. IMPRESSION: 1. No acute findings. Emphysema of lungs. Atherosclerotic aorta. Reviewed, dictated and finalized at location T. AI CULTURIST
--- NOTE | ~2025-08-24 | NM_ITS ---
NM lung vent and perfusion INDICATION: Hypoxia. Rule out pulmonary embolism. TECHNIQUE: The patient inhaled aerosolized 10.3 mCi xenon-133. Following ventilation scan, 5.6 mCi Tc 99m MAA was injected intravenously for perfusion images. Multiple images were then acquired. COMPARISON: Chest x-ray dated 08/24/2025 FINDINGS: The comparison chest radiograph demonstrates hyperinflation, consistent with emphysema. There is coarse interstitial infiltrates of the lung bases, likely scarring/fibrosis.. There is retention of radiotracer on washout images consistent with obstructive pulmonary disease. No significant V/Q mismatches are identified. Small bilateral patch defects are identified. IMPRESSION: 1: Low probability for pulmonary embolism. Reviewed, dictated and finalized at location O. ING AND CANCELING MACHINE OPERATOR
--- NOTE | ~2025-08-24 | US_ITS ---
Examination: Ultrasound of the retroperitoneum including kidneys and bladder. Clinical History: MARIANA . Comparison: Renal sonogram 08/24/2023. Findings: Right kidney: 13 cm. Normal echogenicity. No collecting system dilatation. No shadowing calculi. 13 mm cyst. Left kidney: 13 cm. Normal echogenicity. No collecting system dilatation. No shadowing calculi. 19 mm cyst. Urinary bladder: No wall thickening or focal abnormality. Prevoid volume- 833 mL. Bilateral ureteral jets seen. IMPRESSION: 1. No hydronephrosis. Reviewed, dictated and finalized at location R. RITY SOLUTIONS ARCHITECT IMPRESSION: 1. No hydronephrosis.
--- NOTE | 2025-08-24 11:47 | ECG_ITS ---
Test Date: 2025-08-24 10:56:59 Measurements Intervals [place] Rate: 45 P: 78 VA: 216 QRS: -41 QRSD: 93 T: 69 QT: 445 QTc: 386 Interpretive Statements SINUS BRADYCARDIA WITH FIRST DEGREE AV BLOCK LEFT AXIS DEVIATION CANNOT R/O SEPTAL INFARCT, AGE INDETERMINATE BORDERLINE ST-T WAVE ABNORMALITY- LAT/HIGH LAT LEADS BASELINE ARTIFACT- I, III, AVR, AVL, AVF, V4-V6 ABNORMAL ECG Compared to ECG 08/16/2025 20:22:27 HEART RATE HAS DECREASED Electronically Signed On 08-24-2025 17:14:50 ENGLISH AND READING INSTRUCTOR by Eduardo Haywood D.O.
--- NOTE | 2025-08-24 11:50 | PC.NURSE ---
pt found in room, hypoxic, 86% on RA placed on 3L NC EDP made aware
[2025-08-24] MEDS: SODIUM CHLORIDE 0.9% IV 500 ML 999 ML IV CONT (11:55)
[2025-08-24 12:06] LABS: Hematocrit 34.0 % (42.0-52.0); Hemoglobin 10.8 g/dL (14.0-18.0); Immature Granulocyte Percent A 0.2 % (0-0.5); Lymphocytes Absolute Auto 1.70 K/mm3 (0.9-3.2); Mean Corpuscular HGB Conc 31.8 g/dl (32-36); Mean Corpuscular Hemoglobin 25.8 pg (26-34); Mean Corpuscular Volume 81.3 fl (80-100); Nucleated Red Blood Cells Absolute Auto 0.000 K/mm3 (0.0-0.012); Nucleated Red Blood Cells Perc 0.0 % (0.0-0.2); Platelet Count Result 197 k/mm3 (150-375); Red Blood Count 4.18 M/mm3 (4.6-6.20); White Blood Count 5.4 K/mm3 (4.5-10.0)
[2025-08-24 12:21] LABS: Alanine Aminotransferase 18 U/L (6-50); Albumin Level 3.7 g/dL (3.5-5.1); Alkaline Phosphatase 68 U/L (38-126); Anion Gap 12 mmol/L (4-12); Aspartate Amino Transferase 26 U/L (17-59); Bilirubin,Total 0.7 mg/dL (0.2-1.3); Blood Urea Nitrogen 80 mg/dL (9-20); Calcium 9.5 mg/dL (8.4-10.2); Carbon Dioxide 23 mmol/L (22-30); Chloride 103 mmol/L (98-107); Estimated CRCL calculation 13 ml/min; Estimated Glomerular Filt Rate 14; Glucose 112 mg/dL (65-110); Potassium 4.2 mmol/L (3.4-5.0); Sodium 138 mmol/L (137-145); Total Protein 6.6 g/dL (6.3-8.2)
[2025-08-24 12:31] LABS: Troponin I 0.016 ng/mL (0.000-0.034)
--- NOTE | 2025-08-24 13:58 | ED.GENADULT ---
HPI - General Adult General Chief complaint: Recheck/Abnormal Lab/Rx Stated complaint: blood pressure issues Time Seen by Provider: 08/24/25 11:42 Source: patient Mode of arrival: ambulatory Limitations: no limitations History of Present Illness HPI narrative: 85-year-old with history of diabetes, hypertension, CKD stage 3, history of urinary retention here with the complaints of having low blood pressure since this morning. He denies having any lightheadedness or dizziness. No history of chest pain or shortness of breath. Denies any nausea, vomiting, abdominal pain. No blood in the urine or the stool. Onset (ago): day(s) (1) Radiation: non-radiation Relieving factors: none Exacerbating factors: none Associated symptoms: denies other symptoms Related Data Home Medications ?Medication ?Instructions ?Recorded ?Confirmed ?Last Taken ?Type aspirin 81 mg tablet,delayed 81 mg PO DAILY 10/16/19 08/21/25 08/23/23 08:00 History release (Adult Aspirin Regimen) clonidine HCl 0.1 mg tablet 0.1 mg PO USEASDIRECTD 08/24/23 08/21/25 Unknown History finasteride 5 mg tablet 5 mg PO DAILY 06/09/25 08/21/25 Unknown History torsemide 10 mg tablet 10 mg PO .qod 08/12/25 08/21/25 Unknown History fluticasone fur. 100 mcg-umeclid 1 inh inhalation DAILY 08/21/25 08/21/25 Unknown History 62.5 mcg-vilant 25 mcg inhalat.powder (Trelegy Ellipta) Allergies Allergy/AdvReac Type Severity Reaction Status Date / Time No Known Allergies Allergy Verified 08/21/25 10:39 Review of Systems Review of Systems: All systems reviewed & are unremarkable except as noted in HPI and below Constitutional: Constitutional: Reports no additional constitutional complaints Eyes: Eyes: Reports no additional eye complaints ENT: Reports system reviewed and no additional complaints, except as documented Cardiovascular: Cardiovascular: Reports no additional cardiovascular complaints Respiratory: Respiratory: Reports no additional respiratory complaints Gastrointestinal: Gastrointestinal: Reports no additional gastrointestinal complaints Musculoskeletal: Musculoskeletal: Reports no additional musculoskeletal complaints Integumentary/Breasts: Skin/Breast: Reports system reviewed and no additional complaints, except as docu Neurologic: Reports system reviewed and no additional complaints, except as documented [facility] Past Medical History Medical History Hypertensive heart and CKD Renal artery stenosis Peripheral vascular disease Coronary artery disease Colorectal cancer Type 2 diabetes mellitus Hypertension Gastroesophageal reflux disease Chronic kidney disease, stage 3 Diabetic neuropathy Mixed hyperlipidemia Carotid artery stenosis Surgical History Surgical History History of right-sided carotid endarterectomy History of cholecystectomy History of cataract extraction History of coronary artery stent placement History of colon surgery Family History Family History Mother Family history of coronary artery disease Cerebrovascular accident Sibling Family history of coronary artery disease Other Hypertension Other Diabetes mellitus Father Diabetes mellitus Other Family history of cardiovascular disease Social History Social History Social History: Surrogate medical decision maker: Cassius Pérez, brother. Code status: Full code. Smoking packs per day: 2 Smoking cigarettes per day: 40.0 Years smoked: 53 Smoking pack-years: 106.00 Smoking status: Former smoker Tobacco type: cigarettes Second hand tobacco smoke exposure: Yes Alcohol intake: never Substance use: never Substance use type: does not use Lack of Transportation: No Lack of Food: Never True Current Housing: I Have Housing Concerned About Future Housing: No Difficulty Paying Gas/Electric Bills: No Difficulty Paying for Meds: No Currently Unemployed: No Education: High School Diploma/GED Difficulty w/ Childcare or Family Care: No Living arrangements: alone Additional living arrangements comments: Lives in [place]. . Has 1 son. 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 Gender identity (if verbalized by the patient): Male Sexual Orientation (if Verbalized by the Patient): Straight or Heterosexual Spiritual care concerns: No Exam Narrative: GENERAL: Well-appearing, well-nourished, and in no acute distress. HEAD: Normocephalic, atraumatic. EYES: PERRLA and EOMI. ENT: Nares clear, no rhinorrhea or epistaxis. Mucous membranes moist. NECK: Supple. CHEST: Clear to auscultation. No respiratory distress. HEART: Regular rate and rhythm. No murmur heard. Normal peripheral pulses. ABDOMEN: Soft, nontender, nondistended, normal active bowel sounds. EXTREMITIES: Normal range of motion. No edema. SKIN: Warm, dry, no rash. NEURO: No focal deficits. Alert and oriented x3. PSYCH: Normal mood and affect. Course Course Emergency Course: I did review his labs he is in acute renal failure with a creatinine of 4.05. Renal ultrasound did not show any evidence of hydronephrosis. Discussed with Dr. Adams will consult the patient patient does have urinary retention will place a Martinez catheter. Vital Signs Vital signs: Vital Signs Temperature 36.4 C 08/24/25 10:45 Pulse Rate 51 L 08/24/25 10:45 Respiratory Rate 18 08/24/25 10:45 Blood Pressure 129/40 L 08/24/25 10:45 Pulse Oximetry 90 08/24/25 10:45 Oxygen Delivery Room Air 08/24/25 10:45 Temperature 36.8 C 08/24/25 12:21 Pulse Rate 56 L 08/24/25 12:47 Respiratory Rate 14 08/24/25 12:47 Blood Pressure 169/55 H 08/24/25 12:47 Pulse Oximetry 95 08/24/25 12:47 Oxygen Delivery Room Air 08/24/25 10:45 MDM Differential Diagnosis Differential Diagnosis: Acute renal failure, BPH, Medical Records I have reviewed the following patient records and this information was taken into consideration when formulating the assessment and plan.: previous labs Lab Data [facility] Lab Attestation statement: I personally reviewed the patient's lab results. 08/24/25 11:55 08/24/25 11:55 Labs: Lab Results 08/24/25 Range/Units 11:55 WBC 5.4 (4.5-10.0) K/mm3 RBC 4.18 L (4.6-6.20) M/mm3 Hgb 10.8 L (14.0-18.0) g/dL Hct 34.0 L (42.0-52.0) % MCV 81.3 (80-100) fl MCH 25.8 L (26-34) pg MCHC 31.8 L (32-36) g/dl RDW 18.6 H (11.5-14.5) % Plt Count 197 (150-375) k/mm3 MPV 10.4 (7.4-10.4) fl Immature Gran % (Auto) 0.2 (0-0.5) % Neut % (Auto) 53.9 (45.5-73.1) % Lymph % (Auto) 31.8 (18.3-44.2) % [place] % (Auto) 9.9 H (2.6-8.5) % Eos % (Auto) 3.6 (0-4.4) % Baso % (Auto) 0.6 (0.2-1.2) % Lymph # (Auto) 1.70 (0.9-3.2) K/mm3 [place] # (Auto) 0.5 (0.1-0.6) K/mm3 Eos # (Auto) 0.2 (0-0.3) K/mm3 Baso # (Auto) 0.0 (0.0-0.1) K/mm3 Abs Immat Gran (auto) 0.01 (0.00-0.031) K/mm3 Absolute Neuts (auto) 2.9 (1.3-6.7) K/mm3 Absolute Nucleated RBC 0.000 (0.0-0.012) K/mm3 Nucleated RBC % 0.0 (0.0-0.2) % Sodium 138 (137-145) mmol/L Potassium 4.2 (3.4-5.0) mmol/L Chloride 103 (98-107) mmol/L Carbon Dioxide 23 (22-30) mmol/L Anion Gap 12 (4-12) mmol/L BUN 80 H D (9-20) mg/dL Creatinine 4.05 H (0.7-1.3) mg/dL Estim Creat Clear Calc 13 ml/min Estimated GFR 14 L (59 - ) Glucose 112 H (65-110) mg/dL Lactic Acid 1.9 (0.7-2.0) mmol/L Calcium 9.5 (8.4-10.2) mg/dL Total Bilirubin 0.7 (0.2-1.3) mg/dL AST 26 (17-59) U/L ALT 18 (6-50) U/L Alkaline Phosphatase 68 (38-126) U/L Troponin I 0.016 (0.000-0.034) ng/mL Total Protein 6.6 (6.3-8.2) g/dL Albumin 3.7 (3.5-5.1) g/dL Imaging Data Radiologist's impression: ITS Impressions Renal Ultrasound 08/24/25 13:14 IMPRESSION: 1. No hydronephrosis. ECG Data EKG #1: ECG completion date: 08/24/25 ECG completion time: 10:56 bradycardia (45), no ectopy, no ST changes and left axis Discharge Plan Discharge Clinical Impression: Acute urinary retention Acute renal failure (ARF) Qualifiers: Acute renal failure type: unspecified Qualified Code(s): N17.9 - Acute kidney failure, unspecified Patient Disposition: Still a Patient Condition: Stable Patient Language: Slovenian Prescriptions: No Action aspirin [Adult Aspirin Regimen] 81 mg tablet,delayed release (DR/EC) 81 mg PO DAILY furosemide [Lasix] 20 mg tablet 20 mg PO QAM Qty: 7 0RF Trelegy Ellipta 100-62.5-25 mcg blister with device 1 inh inhalation DAILY Patient Comments: sample provided in clinic polysaccharide iron complex 150 mg iron capsule 150 mg PO DAILY Qty: 90 3RF finasteride 5 mg tablet 5 mg PO DAILY clonidine HCl 0.1 mg tablet 0.1 mg PO USEASDIRECTD Rx Instructions: TAKE 2 TABLETS BY MOUTH EVERY MORNING , TAKE 1 TABLET IN AFTERNOON AND TAKE 2 TABLETS AT NIGHT (DME) blood-glucose meter [Accu-Chek Jaimee Plus Meter] [facility] See Rx Instructions .ROUTE .MEDSUPPLY Qty: 1 0RF Rx Instructions: Used once daily to check blood sugar (DME) Blood Glucose Test Strip See Rx Instructions .ROUTE .MEDSUPPLY Qty: 100 3RF Rx Instructions: Use once daily to check blood sugar nifedipine 90 mg tablet extended release See Rx Instructions .ROUTE .COMPLEX Qty: 90 2RF Dose Instruction: TAKE 1 TABLET BY MOUTH EVERY DAY Rx Instructions: TAKE 1 TABLET BY MOUTH EVERY DAY metformin 500 mg tablet extended release 24 hr 500 mg PO DAILY Qty: 90 2RF atorvastatin 40 mg tablet See Rx Instructions .ROUTE .COMPLEX Qty: 90 3RF Dose Instruction: TAKE 1 TABLET (40 MG) BY MOUTH DAILY Rx Instructions: TAKE 1 TABLET (40 MG) BY MOUTH DAILY irbesartan 300 mg tablet See Rx Instructions .ROUTE .COMPLEX Qty: 90 3RF Dose Instruction: TAKE 1 TABLET (300 MG) BY MOUTH DAILY Rx Instructions: TAKE 1 TABLET (300 MG) BY MOUTH DAILY gabapentin 100 mg capsule 100 mg PO TID Qty: 270 2RF tamsulosin 0.4 mg capsule 0.4 mg PO DAILY Qty: 90 2RF pantoprazole 40 mg tablet,delayed release (DR/EC) See Rx Instructions .ROUTE .COMPLEX Qty: 180 2RF Dose Instruction: TAKE 1 TABLET BY MOUTH TWICE A DAY Rx Instructions: TAKE 1 TABLET BY MOUTH TWICE A DAY chlorthalidone 25 mg tablet See Rx Instructions .ROUTE .COMPLEX Qty: 90 3RF Dose Instruction: TAKE 1 TABLET BY MOUTH EVERY DAY Rx Instructions: TAKE 1 TABLET BY MOUTH EVERY DAY torsemide 10 mg tablet 10 mg PO .qod labetalol 300 mg tablet 300 mg PO Q12H Qty: 60 5RF lorazepam 0.5 mg tablet 0.5 mg PO BID PRN (Reason: anxiety) Qty: 45 0RF Follow-up/Referrals: Naveen Lott MD [Primary Care Provider, Family Practice] Time of Disposition: 14:13
[2025-08-24] MEDS: SODIUM CHLORIDE 0.9% IV 1,000 ML 125 ML IV CONT (15:25)
--- NOTE | 2025-08-24 15:50 | WPCEDHO ---
ED Hand Off Checklist All vitals saved: y IV Site documented: y All med administrations documented: y Triage Note Triage Note Patient to the ED with complaints 08/24/25 12:21 of BP problems. patient states his BP has been up and down and he has not been able to keep his BP under control. Patient states it has been up and down. he has been taking medication for 10 years, but they cant get it right. Allergies No Known Allergies Allergy (Verified 08/24/25 15:09) Family History (Last Reviewed 08/24/25 @ 14:33 by Vicky Hines APRN) Mother Family history of coronary artery disease Cerebrovascular accident Sibling Family history of coronary artery disease Other Hypertension Other Diabetes mellitus Father Diabetes mellitus Other Family history of cardiovascular disease Active Medications including assessments/comments Sodium Chloride (Normal Saline Iv) 1,000 mls @ 150 mls/hr IV CONT .Q6H40M STA Stop: 08/24/25 20:24 Last Admin: 08/24/25 15:24 Dose: Not Given Documented By: ARACELI Non-Admin Reason: Duplicate Dose Sodium Chloride (Normal Saline Iv) 1,000 mls @ 125 mls/hr IV CONT .Q8H [facility] Last Admin: 08/24/25 15:25 Dose: 125 mls/hr Documented By: ARACELI Infusion/Titration Document 08/24/25 15:25 ARACELI (Rec: 08/24/25 15:25 ARACELI [id number]) Intake IV Site Peripheral Access Right Antecubital Container Volume 1,000 Waste Amount 0 Dosing Infusion Rate 125 Cumulative Dose Not Applicable Increase/Decrease Started Elapsed Time Elapsed Time ( 0m minutes) Administered/Completed Medications Discontinued Medications Sodium Chloride (Normal Saline Iv) 500 mls @ 999 mls/hr IV CONT .Q31M STA Stop: 08/24/25 12:17 Last Admin: 08/24/25 11:55 Dose: 999 mls/hr Documented By: JADYN Sodium Chloride (Normal Saline Iv) Confirm Administered Dose 500 mls @ as directed .ROUTE .STK-MED ONE Stop: 08/24/25 11:47 Last Admin: 08/24/25 11:55 Dose: Not Given Documented By: JADYN Non-Admin Reason: Duplicate Dose Notes 08/24/25 11:50 (created 08/24/25 14:45) Nurse Note by Jj Andrews pt found in room, hypoxic, 86% on RA placed on 3L NC EDP made aware Initialized on 08/24/25 14:45 - END OF NOTE Interventions/Assessments IV / Saline Lock, Insert Start: 08/24/25 10:30 Freq: Status: Active Protocol: Document 08/24/25 11:55 KLM (Rec: 08/24/25 11:55 KLM [id number]) IV Assessment Peripheral Access Right Antecubital IV Catheter Access Initiated IV Insertion Date 08/24/25 IV Insertion Time 11:55 Catheter Gauge 18 IV Insertion 1 Attempts IV Site Assessment WNL IV Care and WNL Maintenance PA: Respiratory Assessment Start: 08/24/25 14:49 Freq: Status: Active Protocol: Document 08/24/25 14:49 JP (Rec: 08/24/25 14:49 JP [id number]) Respiratory Assessment Symptoms None Effort Normal Depth Normal Cough Description None Oxygen Delivery Oxygen Delivery Nasal Cannula Oxygen Flow Rate (L/ 3 min) Pulse Oximetry (90- 96 100 %) Last Vital Signs Temperature 98.2 F 08/24/25 12:21 Pulse Rate 60 08/24/25 14:44 Respiratory Rate 14 08/24/25 14:44 Pulse Oximetry 96 08/24/25 14:49 Blood Pressure 185/86 H 08/24/25 14:44 Blood Pressure Mean 119 08/24/25 14:44 Oxygen Delivery Nasal Cannula 08/24/25 14:49 Oxygen Flow Rate 3 08/24/25 14:49 Weight 81.1 kg 08/24/25 12:21 Last Result - Abnormals Only RBC 4.18 M/mm3 (4.6-6.20) L 08/24/25 11:55 Hgb 10.8 g/dL (14.0-18.0) L 08/24/25 11:55 Hct 34.0 % (42.0-52.0) L 08/24/25 11:55 MCH 25.8 pg (26-34) L 08/24/25 11:55 MCHC 31.8 g/dl (32-36) L 08/24/25 11:55 RDW 18.6 % (11.5-14.5) H 08/24/25 11:55 [place] % (Auto) 9.9 % (2.6-8.5) H 08/24/25 11:55 BUN 80 mg/dL (9-20) H D 08/24/25 11:55 Creatinine 4.05 mg/dL (0.7-1.3) H 08/24/25 11:55 Estimated GFR 14 (59-) L 08/24/25 11:55 Glucose 112 mg/dL (65-110) H 08/24/25 11:55 Most Recent Suicide Severity Rating Suicide Severity Rating NO RISK INDICATED 08/24/25 12:21
--- NOTE | 2025-08-24 15:55 | P.HP_ITS ---
H&P: HPI History of Present Illness Date/Time: 08/24/25 15:55 Chief Complaint: Blood Pressure Problem Narrative: 85 y/o M with PMH of hypertension, CKD stage III, renal artery stenosis, PVD, coronary artery disease, diabetes, and carotid artery stenosis s/p carotid endarterectomy presents here with blood pressure issues. The patient presents here from home on 08/24 for further evaluation of irregular blood pressure readings. He reports he has a longstanding history of a difficult to control blood pressure. For years it was mostly to high. However within the last few years it has been more stable. Recently within the last month it has again become difficult to control. He reports checking his blood pressure last night which showed a systolic in the 130s, unsure what the diastolic was. This was accompanied by a near syncopal event where he became lightheaded and was able to recent self against the wall and slight dominant avoiding injury. He did not fully lose consciousness or hit his head. After the event he rechecked his blood pressure which showed a systolic in the 180s, again unsure of the diastolic. BP upon arrival 129/40, more recently 168/96. Denies headache, dizziness, or vision changes at present. Additionally the patient was found to have a significant MARIANA superimposed on CKD during his evaluation. He currently follows with Nephrology at [facility] and has a history significant for CKD stage 3. He also reports recent issues with his prostate for which a Martinez has been placed for retention. He denies any current urinary symptoms including dysuria, urinary frequency, or urinary hesitancy. Does report he has had some congestion as of late with a very mild intermittent cough that is dry. No shortness of breath. Does report the symptoms have been ongoing for some time, approximately 2-3 weeks. Initial VS at presentation: 97.6? F, HR 51, R 18, 129/40, and 90% on RA. Now 95% on RA. ED workup showed: No leukocytosis, hemoglobin 10.8 (11.7 on 08/16), creatinine 4.05/BUN 80/GFR 14 (previously 1.7/BUN 60/GFR 39 on 08/16), glucose 112, lactic 1.9. Renal ultrasound showed no hydronephrosis. Review of Systems Review of Systems: All systems reviewed & are unremarkable except as noted in HPI and below PMFSH Past Medical History Medical History Hypertensive heart and CKD Renal artery stenosis Peripheral vascular disease Coronary artery disease Colorectal cancer Type 2 diabetes mellitus Hypertension Gastroesophageal reflux disease Chronic kidney disease, stage 3 Diabetic neuropathy Mixed hyperlipidemia Carotid artery stenosis Surgical History Surgical History History of right-sided carotid endarterectomy History of cholecystectomy History of cataract extraction History of coronary artery stent placement History of colon surgery Family History Family History Mother Family history of coronary artery disease Cerebrovascular accident Sibling Family history of coronary artery disease Other Hypertension Other Diabetes mellitus Father Diabetes mellitus Other Family history of cardiovascular disease Social History Social History Social History: Surrogate medical decision maker: Cassius Beto, brother. Code status: Full code. Smoking packs per day: 2 Smoking cigarettes per day: 40.0 Years smoked: 53 Smoking pack-years: 106.00 Smoking status: Former smoker Second hand tobacco smoke exposure: Yes Alcohol intake: never Substance use: never Substance use type: does not use Lack of Transportation: No Lack of Food: Never True Current Housing: I Have Housing Concerned About Future Housing: No Difficulty Paying Gas/Electric Bills: No Difficulty Paying for Meds: No Currently Unemployed: No Education: High School Diploma/GED Difficulty w/ Childcare or Family Care: No Living arrangements: alone Additional living arrangements comments: Lives in [place]. . Has 1 son. 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 Gender identity (if verbalized by the patient): Male Sexual Orientation (if Verbalized by the Patient): Straight or Heterosexual Spiritual care concerns: No Meds Home Medications and Allergies Home Medications ?Medication ?Instructions ?Recorded ?Confirmed ?Type aspirin 81 mg tablet,delayed 81 mg PO DAILY 10/16/1910/25/24 History release (Adult Aspirin Regimen) blood-glucose meter (Accu-Chek #1 ea 09/14/20 08/21/25 Rx Jaimee Plus Meter) blood sugar diagnostic (Blood #100 ea 12/02/21 12/18/2 5 Rx Glucose Test strips) clonidine HCl 0.1 mg tablet 0.1 mg PO USEASDIRECTD 08/24/25 History nifedipine 90 mg tablet,extended See Rx Instructions . Route 11/11/24 08/24/25 Rx release .COMPLEX #90 tabs metformin 500 mg tablet,extended 500 mg PO DAILY #90 t abs 02/11/25 08/24/25 Rx release 24 hr atorvastatin 40 mg tablet See Rx Instructions .Route 0 02/12/25 08/24/25 Rx .COMPLEX #90 tabs irbesartan 300 mg tablet See Rx Instructions .Route 0 02/12/25 08/24/25 Rx .COMPLEX #90 tabs gabapentin 100 mg capsule 100 mg PO TID Chronic Shingl es 03/12/25 08/24/25 Rx neuropathy #270 caps tamsulosin 0.4 mg capsule 0.4 mg PO DAILY #90 caps 01/2608/24/25 Rx finasteride 5 mg tablet 5 mg PO DAILY 06/09/2508/24 History pantoprazole 40 mg tablet,delayed See Rx Instructions .Route 06/23/25 08/24/25 Rx release .COMPLEX #180 tabs chlorthalidone 25 mg tablet See Rx Instructions .Route 07/04/25 08/24/25 Rx .COMPLEX #90 tabs labetalol 300 mg tablet 300 mg PO Q12H #60 tabs 05/2908/24/25 Rx fluticasone fur. 100 mcg-umeclid 1 inh inhalation MONICA Y 08/21/25 08/24/25 Histo ry 62.5 mcg-vilant 25 mcg inhalat.powder (Trelegy Ellipta) lorazepam 0.5 mg tablet 0.5 mg PO BID PRN anxiety #4 5 tabs 08/21/25 08/24/25 Rx polysaccharide iron complex 150 mg 150 mg PO DAILY #90 caps 08/21/25 08/24/25 Rx iron capsule Allergies Allergy/AdvReac Type Severity Reaction Status Date / Time No Known Allergies Allergy Verified 08/24/25 15:09 Vital Signs Vital Signs - 24 hr 08/24/25 10:45 08/24/25 11:46 08/24/25 11:47 Temperature 97.6 F Pulse Rate 51 L 57 L 54 L Respiratory Rate 18 16 17 Blood Pressure 129/40 L 155/54 H Pulse Oximetry 90 93 94 Oxygen Delivery Room Air 08/24/25 12:05 08/24/25 12:15 08/24/25 12:17 Temperature Pulse Rate 53 L 55 L 54 L Respiratory Rate 13 14 13 Blood Pressure 144/46 H Pulse Oximetry 84 L 83 L 83 L Oxygen Delivery 08/24/25 12:21 08/24/25 12:31 08/24/25 12:45 Temperature 98.2 F Pulse Rate 52 L 55 L 56 L Respiratory Rate 16 15 18 Blood Pressure 144/46 H Pulse Oximetry 96 86 L 96 Oxygen Delivery 08/24/25 12:47 Temperature Pulse Rate 56 L Respiratory Rate 14 Blood Pressure 169/55 H Pulse Oximetry 95 Oxygen Delivery Exam Const: General: comfortable and no acute distress Other: , male, elderly, nontoxic appearance HENMT: Face/Nose/Sinus: Normal nares present Mouth: Yes moist mucous membranes Eyes: General: appearance normal, both eyes and all related structures Sclera: sclerae normal Pupils: Equal, round and reactive pupils present EOM: EOMs intact bilaterally Resp: Effort & Inspection: normal respiratory effort Auscultation: clear to auscultation bilaterally Cardio: Rate: regular rate Rhythm: regular rhythm Other: S1-S2 present without murmur, rub, ectopy GI: Other: Abdomen soft, nondistended, nontender. Normoactive bowel sounds in all quadrants. Urinary Catheter: Urinary Catheter: patent and draining and urine clear Skin: General skin exam: normal color and no rashes or lesions noted Wounds: no wounds Neuro: Speech: normal speech Motor exam (neuro): 5/5 motor strength present throughout Sensory Exam: normal sensation Other: A&O x4 Psych: Mental Status: mental status grossly normal Affect: normal affect Other: Good insight and judgment, pleasant Results Labs Labs: Short CBC 08/24/25 Range/Units 11:55 WBC 5.4 (4.5-10.0) K/mm3 Hgb 10.8 L (14.0-18.0) g/dL Hct 34.0 L (42.0-52.0) % Plt Count 197 (150-375) k/mm3 BMP 08/24/25 11:55 Sodium 138 Potassium 4.2 Chloride 103 Carbon Dioxide 23 BUN 80 H D Creatinine 4.05 H Glucose 112 H Calcium 9.5 Cardiac Enzymes 08/24/25 Range/Units 11:55 Troponin I 0.016 (0.000-0.034) ng/mL Liver Function 08/24/25 Range/Units 11:55 Total Bilirubin 0.7 (0.2-1.3) mg/dL AST 26 (17-59) U/L ALT 18 (6-50) U/L Alkaline Phosphatase 68 (38-126) U/L Albumin 3.7 (3.5-5.1) g/dL Quality VTE Prophylaxis VTE prophylaxis: mechanical ordered Assessment and Plan Assessment and plan (1) Acute renal failure (ARF): Qualifiers: Acute renal failure type: unspecified Qualified Code(s): N17.9 - Acute kidney failure, unspecified Code(s): N17.9 - Acute kidney failure, unspecified Status: Acute Assessment and Plan: Patient initially here due to concerns for blood pressure. However he was found to be in acute renal failure superimposed on CKD. Upon admission the patient's creatinine was 4.05, BUN 80, GFR 14. More recently a 1.7, BUN 60, GFR 39 on 08/16/2025. Currently follows with [facility] neph[facility] team, last visit with them on 07/21/2025. Patient also noted to have history significant for renal artery stenosis. ED provider spoke with on-call periodicals library assistant, Dr. Adams, who recommended IV fluids and will see tomorrow. - IV fluids: 1L -> 125 mL/hr - add CK, urine sodium, protein/creatinine, osmolalities, urine creatinine, UA - Martinez in place at arrival, continued - monitor I&Os - hold chlorthalidone - nephrology consulted (2) Acute respiratory failure with hypoxia: Code(s): J96.01 - Acute respiratory failure with hypoxia Status: Acute Assessment and Plan: Patient noted to be nearly hypoxic in the emergency department. Desaturated to 83/84% on room air. No previous supplemental O2 requirement. Former smoker. Most recent CXR from February of 2025 showed emphysematous changes. Patient is reporting cold-like symptoms for the past 2-3 weeks, currently experiencing and mild intermittent cough and congestion however he does report he feels he is not overcome the cold that has been ongoing. No shortness of breath. No fevers or chills. No nausea vomiting or diarrhea. - check CXR - check viral PCR - continue supplemental oxygen to maintain O2 sat greater than 92%. - no wheezing on exam concerning for COPD exacerbation (3) Type 2 diabetes mellitus with other diabetic kidney complication: Code(s): E11.29 - Type 2 diabetes mellitus with other diabetic kidney complication Status: Chronic Assessment and Plan: - hypoglycemia protocol - POC blood glucose ACHS - no longer on oral anti diabetic medication, A1C 7.2% on 10/29/2024. Update A1c. - correct regimen ordered - moderate dose TIDWM, based off BMI (4) Chronic hypertension: Code(s): I10 - Essential (primary) hypertension Status: Acute Assessment and Plan: - chronic, currently 167/53. - continue home medications: Irbesartan, labetalol, nifedipine - monitor (5) Anemia: Qualifiers: Anemia type: due to chronic kidney disease Chronic kidney disease stage: unspecified stage Qualified Code(s): N18.9 - Chronic kidney disease, unspecified; D63.1 - Anemia in chronic kidney disease Code(s): D64.9 - Anemia, unspecified Status: Acute Assessment and Plan: Patient has history of chronic anemia secondary to CKD. Currently stable. - transfuse if <7 - monitor Plan Diet: Diabetic GI Prophylaxis: n/a DVT Prophylaxis: SCDs IV fluids: 1L -> 125 mL/hr Lines/Tubes: pIV Code Status: Full code Prior Studies I have reviewed the following patient records and this information was taken into consideration when formulating the assessment and plan.: previous labs, previous ER visits, previous hospitalizations and previous clinic visits Time Spent with Patient Time with patient: less than 45 minutes Hospitalist MIPS Advance Care Plan I have confirmed that the patient's Advanced Care Plan is present, code status is documented, or surrogate decision maker is listed in patient medical record.: Yes Medication Reconciliation I have utilized all available resources to obtain, update and review the patients current medications (includes all prescriptions, OTC, herbals, cannabis, and nutritional supplements).: Yes
[2025-08-24 17:03] LABS: CRP 3.8 mg/dL (<1.0); Creatine Kinase 92 U/L (55-170)
[2025-08-24 19:11] LABS: Add Urine Microscopic? NO; Appearance Urine Clear (Clear); Glucose Urine UA Negative (Negative); Leukocyte Esterase Ur Negative LEU/UL (Negative); Nitrate Urine Negative (Negative); Specific Grav Ur 1.008 (1.001-1.035)
[2025-08-24 19:20] LABS: Urea Random Urine 262 MG/DL
[2025-08-24 19:21] LABS: Total Protein Urine Random 19 mg/dL; Ur Ttl Prot Creatinine Ratio 0.72 mg/mg (0-0.20)
[2025-08-24] MEDS: GABAPENTIN 100 MG CAPSULE PO (22:00)
[2025-08-24] MEDS: PANTOPRAZOLE 40 MG TABLET PO (22:08)
[2025-08-25] VITALS (8 sets, daily range): BP systolic 124–167; BP diastolic 41–55; PULSE 50–75; RESP 16–20; TEMP 36.4–36.6; O2SAT 93–97
[2025-08-25] MEDS: SODIUM CHLORIDE 0.9% IV 1,000 ML 125 ML IV CONT ×2 (05:32→16:22)
[2025-08-25 05:39] LABS: Hematocrit 35.5 % (42.0-52.0); Hemoglobin 11.1 g/dL (14.0-18.0); Immature Granulocyte Percent A 0.4 % (0-0.5); Lymphocytes Absolute Auto 1.20 K/mm3 (0.9-3.2); Mean Corpuscular HGB Conc 31.3 g/dl (32-36); Mean Corpuscular Hemoglobin 25.4 pg (26-34); Mean Corpuscular Volume 81.2 fl (80-100); Nucleated Red Blood Cells Absolute Auto 0.000 K/mm3 (0.0-0.012); Nucleated Red Blood Cells Perc 0.0 % (0.0-0.2); Platelet Count Result 203 k/mm3 (150-375); Red Blood Count 4.37 M/mm3 (4.6-6.20); White Blood Count 4.9 K/mm3 (4.5-10.0)
[2025-08-25 05:46] LABS: Hemoglobin A1C 7.0 % (<5.7)
[2025-08-25 06:03] LABS: Anion Gap 9 mmol/L (4-12); Blood Urea Nitrogen 67 mg/dL (9-20); Calcium 9.5 mg/dL (8.4-10.2); Carbon Dioxide 27 mmol/L (22-30); Chloride 105 mmol/L (98-107); Estimated CRCL calculation 16 ml/min; Estimated Glomerular Filt Rate 22; Glucose 112 mg/dL (65-110); Potassium 3.9 mmol/L (3.4-5.0); Sodium 141 mmol/L (137-145)
[2025-08-25 06:58] LABS: Influenza A QL RT-PCR Positive (Negative); Influenza B QL RT-PCR Negative (Negative); RSV RNA, RT-PCR Negative (Negative); SARS-CoV-2 RNA PCR Negative (Negative)
--- NOTE | 2025-08-25 08:03 | P.CONNP_ITS ---
Assessment and Plan Assessment and plan (1) Acute renal failure (ARF): Qualifiers: Acute renal failure type: unspecified Qualified Code(s): N17.9 - Acute kidney failure, unspecified Code(s): N17.9 - Acute kidney failure, unspecified Status: Acute Assessment and Plan: patient has chronic kidney disease. This is due to hypertension and vascular disease. He says he has borderline diabetes as well. The patient's baseline creatinine runs between 1.5 in 2.0. The patient came in with low blood pressure, respiratory symptoms, and a high creatinine. He was given some IV fluids. He feels better this morning. His blood pressure is better, his creatinine is down, and is breathing is better. his MARIANA is most likely due to low blood pressure. He does say his swelling is better. It is hard to put together all of the events. I doubt of raising his labetalol from 200-302 weeks ago cause this severe low blood pressure. In addition, he is still on his labetalol [id number] twice a day and his blood pressure is back up. the torsemide was held of course. His blood pressures up to 160 now. At this point will decrease the IV fluids to 75 an hour. Repeat labs tomorrow. (2) Hypotension: Code(s): I95.9 - Hypotension, unspecified Status: Acute Assessment and Plan: Blood pressure is better. He is back on his blood pressure meds. (3) Acute respiratory failure with hypoxia: Code(s): J96.01 - Acute respiratory failure with hypoxia Status: Acute Assessment and Plan: Chest x-ray was clear. He does have COPD. He is on oxygen. Hospitalists to evaluate this (4) Chronic kidney disease, stage 3: Code(s): N18.30 - Chronic kidney disease, stage 3 unspecified Status: Acute Assessment and Plan: see above (5) Type 2 diabetes mellitus: Code(s): E11.9 - Type 2 diabetes mellitus without complications Status: Acute Assessment and Plan: management per hospitalists History of Present Illness Reason for Consult Consult date: 08/25/25 Chief Complaint Chief complaint: mariana History of Present Illness Narrative: Enzo is a very pleasant 85-year-old gentleman who has multiple medical problems including chronic kidney disease, hypertension, diabetes, colorectal cancer, GERD, diabetes, hyperlipidemia, peripheral vascular disease, carotid artery stenosis, renal artery stenosis. The patient was in my office 1 a month ago. At that time his blood pressure was high. He also had some swelling. I started him on torsemide 10mg a day. A couple weeks later his swelling was better but his blood pressure was still high so increase his labetalol [id number] twice a day. Last week the patient felt under the weather. He had upper respiratory symptoms. No nausea vomiting diarrhea. He felt weak over the last couple of days so came to the ER. In the ER he was found have very low blood pressure. His creatinine had risen to 4. The patient did not have any residual volume in his bladder. His ultrasound was okay. He was admitted. He was given some IV fluids. Today's blood pressure is back up and he feels better. He does not smoke any does not drink Review of Systems 2 Constitutional: Constitutional: Reports no additional constitutional complaints Eyes: Eyes: Reports no additional eye complaints ENT: Reports system reviewed and no additional complaints, except as documented Cardiovascular: Cardiovascular: Reports no additional cardiovascular complaints Respiratory: Respiratory: Reports no additional respiratory complaints Gastrointestinal: Gastrointestinal: Reports no additional gastrointestinal complaints Genitourinary: Genitourinary: Reports no additional male genitourinary complaints Musculoskeletal: Musculoskeletal: Reports no additional musculoskeletal complaints Integumentary/Breasts: Skin/Breast: Reports system reviewed and no additional complaints, except as docu Neurologic: Reports system reviewed and no additional complaints, except as documented Psychiatric: Psychiatric: Reports no additional psychiatric complaints Endocrine: Endocrine: Reports no additional endocrine complaints PMFSH Past Medical History Medical History Hypertensive heart and CKD Renal artery stenosis Peripheral vascular disease Coronary artery disease Colorectal cancer Type 2 diabetes mellitus Hypertension Gastroesophageal reflux disease Chronic kidney disease, stage 3 Diabetic neuropathy Mixed hyperlipidemia Carotid artery stenosis Surgical History Surgical History History of right-sided carotid endarterectomy History of cholecystectomy History of cataract extraction History of coronary artery stent placement History of colon surgery Family History Family History Mother Family history of coronary artery disease Cerebrovascular accident Sibling Family history of coronary artery disease Other Hypertension Other Diabetes mellitus Father Diabetes mellitus Other Family history of cardiovascular disease Social History Social History Social History: Surrogate medical decision maker: Cassius Pérez, brother. Code status: Full code. Smoking packs per day: 2 Smoking cigarettes per day: 40.0 Years smoked: 53 Smoking pack-years: 106.00 Smoking status: Former smoker Second hand tobacco smoke exposure: Yes Alcohol intake: never Substance use: never Substance use type: does not use Lack of Transportation: No Lack of Food: Never True Current Housing: I Have Housing Concerned About Future Housing: No Difficulty Paying Gas/Electric Bills: No Difficulty Paying for Meds: No Currently Unemployed: No Education: High School Diploma/GED Difficulty w/ Childcare or Family Care: No Living arrangements: alone Additional living arrangements comments: Lives in [address] . Has 1 son. 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 Gender identity (if verbalized by the patient): Male Sexual Orientation (if Verbalized by the Patient): Straight or Heterosexual Spiritual care concerns: No Meds Home Medications and Allergies Home Medications ?Medication ?Instructions ?Recorded ?Confirmed ?Type aspirin 81 mg tablet,delayed 81 mg PO DAILY 10/16/19 1 10/25/24 History release (Adult Aspirin Regimen) blood-glucose meter (Accu-Chek #1 ea 09/14/20 08/21/25 Rx Jaimee Plus Meter) blood sugar diagnostic (Blood #100 ea 08/05/21 5 Rx Glucose Test strips) clonidine HCl 0.1 mg tablet 0.1 mg PO USEASDIRECTD 08/24/25 History nifedipine 90 mg tablet,extended See Rx Instructions . Route 11/11/24 08/24/25 Rx release .COMPLEX #90 tabs metformin 500 mg tablet,extended 500 mg PO DAILY #90 t abs 02/11/25 08/24/25 Rx release 24 hr atorvastatin 40 mg tablet See Rx Instructions .Route 0 02/12/25 08/24/25 Rx .COMPLEX #90 tabs irbesartan 300 mg tablet See Rx Instructions .Route 0 02/12/25 08/24/25 Rx .COMPLEX #90 tabs gabapentin 100 mg capsule 100 mg PO TID Chronic Shingl es 03/12/25 08/24/25 Rx neuropathy #270 caps tamsulosin 0.4 mg capsule 0.4 mg PO DAILY #90 caps 01/2608/24/25 Rx finasteride 5 mg tablet 5 mg PO DAILY 06/09/2508/24 History pantoprazole 40 mg tablet,delayed See Rx Instructions .Route 06/23/25 08/24/25 Rx release .COMPLEX #180 tabs chlorthalidone 25 mg tablet See Rx Instructions .Route 07/04/25 08/24/25 Rx .COMPLEX #90 tabs labetalol 300 mg tablet 300 mg PO Q12H #60 tabs 05/2908/24/25 Rx fluticasone fur. 100 mcg-umeclid 1 inh inhalation MONICA Y 08/21/25 08/24/25 History 62.5 mcg-vilant 25 mcg inhalat.powder (Trelegy Ellipta) lorazepam 0.5 mg tablet 0.5 mg PO BID PRN anxiety #4 5 tabs 08/21/25 08/24/25 Rx polysaccharide iron complex 150 mg 150 mg PO DAILY #90 caps 08/21/25 08/24/25 Rx iron capsule Allergies Allergy/AdvReac Type Severity Reaction Status Date / Time No Known Allergies Allergy Verified 08/24/25 15:09 Vital Signs Vital Signs - 24 hr 08/24/25 10:45 08/24/25 11:46 08/24/25 11:47 Temperature 97.6 F Pulse Rate 51 L 57 L 54 L Respiratory Rate 18 16 17 Blood Pressure 129/40 L 155/54 H Pulse Oximetry 90 93 94 Oxygen Delivery Room Air Oxygen Flow Rate Fraction of Inspired Oxygen 08/24/25 12:05 08/24/25 12:15 08/24/25 12:17 Temperature Pulse Rate 53 L 55 L 54 L Respiratory Rate 13 14 13 Blood Pressure 144/46 H Pulse Oximetry 84 L 83 L 83 L Oxygen Delivery Oxygen Flow Rate Fraction of Inspired Oxygen 08/24/25 12:21 08/24/25 12:31 08/24/25 12:45 Temperature 98.2 F Pulse Rate 52 L 55 L 56 L Respiratory Rate 16 15 18 Blood Pressure 144/46 H Pulse Oximetry 96 86 L 96 Oxygen Delivery Oxygen Flow Rate Fraction of Inspired Oxygen 08/24/25 12:47 08/24/25 12:48 08/24/25 13:00 Temperature Pulse Rate 56 L 58 L 59 L Respiratory Rate 14 13 18 Blood Pressure 169/55 H Pulse Oximetry 95 95 Oxygen Delivery Oxygen Flow Rate Fraction of Inspired Oxygen 08/24/25 13:02 08/24/25 13:15 08/24/25 13:17 Temperature Pulse Rate 57 L 58 L 60 Respiratory Rate 15 17 13 Blood Pressure 153/51 H 159/145 H Pulse Oximetry 98 100 98 Oxygen Delivery Oxygen Flow Rate Fraction of Inspired Oxygen 08/24/25 13:30 08/24/25 13:32 08/24/25 13:45 Temperature Pulse Rate 60 62 59 L Respiratory Rate 15 15 15 Blood Pressure 148/55 H Pulse Oximetry 92 98 97 Oxygen Delivery Oxygen Flow Rate Fraction of Inspired Oxygen 08/24/25 14:00 08/24/25 14:34 08/24/25 14:44 Temperature Pulse Rate 66 58 L 60 Respiratory Rate 21 H 14 14 Blood Pressure 185/86 H Pulse Oximetry 100 97 96 Oxygen Delivery Oxygen Flow Rate Fraction of Inspired Oxygen 08/24/25 14:49 08/24/25 14:52 08/24/25 15:00 Temperature Pulse Rate 61 60 Respiratory Rate 13 15 Blood Pressure Pulse Oximetry 96 97 97 Oxygen Delivery Nasal Cannula Oxygen Flow Rate 3 Fraction of Inspired Oxygen 08/24/25 15:02 08/24/25 15:15 08/24/25 15:17 Temperature Pulse Rate 60 59 L 59 L Respiratory Rate 14 13 17 Blood Pressure 190/59 H 172/67 H Pulse Oximetry 97 97 97 Oxygen Delivery Oxygen Flow Rate Fraction of Inspired Oxygen 08/24/25 15:30 08/24/25 15:32 08/24/25 15:45 Temperature Pulse Rate 61 55 L 66 Respiratory Rate 16 13 15 Blood Pressure 174/58 H Pulse Oximetry 98 98 100 Oxygen Delivery Oxygen Flow Rate Fraction of Inspired Oxygen 08/24/25 15:47 08/24/25 16:27 08/24/25 20:00 Temperature 97.4 F L Pulse Rate 65 63 54 L Respiratory Rate 16 20 20 Blood Pressure 168/96 H 167/53 H Pulse Oximetry 99 91 93 Oxygen Delivery Nasal Cannula Oxygen Flow Rate 2 Fraction of Inspired Oxygen 28 08/24/25 21:32 08/24/25 22:01 08/24/25 22:13 Temperature 97.5 F L Pulse Rate 57 L 50 L 54 L Respiratory Rate 16 20 Blood Pressure 151/54 H Pulse Oximetry 95 93 Oxygen Delivery Nasal Cannula Oxygen Flow Rate 2 Fraction of Inspired Oxygen 28 08/24/25 22:15 08/25/25 05:21 Temperature 97.5 F L Pulse Rate 52 L Respiratory Rate 16 Blood Pressure 167/47 H Pulse Oximetry 93 94 Oxygen Delivery Oxygen Flow Rate Fraction of Inspired Oxygen Exam 2 Narrative: Exam Narrative: Well developed well-nourished Male in no acute distress Skin is warm and dry without rash Head normocephalic atraumatic Eyes normal sclerae and conjunctivae Mouth normal lips teeth and gums Neck no nodes no thyromegaly no carotid bruits Axillae no nodes Back no CVA tenderness Lungs symmetric and clear to auscultation and percussion Heart regular rate and rhythm without rub or gallop Abdomen bowel sounds positive soft nontender, no HSM, masses, or bruits. Extremities no cyanosis, clubbing, or edema Pulses 2+ equal in radial arteries Psychological not anxious or depressed Neuro alert and oriented x3 motor 5/5 cranial nerves 2-12 intact reflexes 2+ and equal in the biceps and patellar tendons cerebellar normal rapid alternating movements Results Lab Results 08/25/25 05:12 08/25/25 05:12 Lab results: Most recent lab results Calcium 9.5 mg/dL (8.4-10.2) 08/25/25 05:12 Urine Creatinine 24.6 mg/dL 08/24/25 18:55 Urine Creatinine 26.3 mg/dL 08/24/25 18:55
[2025-08-25] MEDS: IRBESARTAN 150 MG TABLET 300 MG PO (08:55)
[2025-08-25] MEDS: ATORVASTATIN 20 MG TABLET 40 MG PO (08:55)
[2025-08-25] MEDS: PANTOPRAZOLE 40 MG TABLET PO ×2 (08:55→16:21)
[2025-08-25] MEDS: TAMSULOSIN HCL 0.4 MG CAPSULE PO (08:55)
[2025-08-25] MEDS: FINASTERIDE 5 MG TABLET PO (08:55)
[2025-08-25] MEDS: ASPIRIN 81 MG ENTERIC TABLET PO (08:56)
[2025-08-25] MEDS: GABAPENTIN 100 MG CAPSULE PO ×3 (08:56→16:21)
[2025-08-25] MEDS: LABETALOL HCL 100 MG TABLET 300 MG PO (08:59)
[2025-08-25] MEDS: INSULIN ASPART (*BKC) 100 UNITS/ML SUB-Q (09:12)
[2025-08-25] MEDS: FLUTICASONE/UMECLIDIN/VILANTER 100-62.5-25 MCG ELLIPTA 1 PUFF INHALATION (09:23)
--- NOTE | 2025-08-25 11:35 | P.PNIM_ITS ---
Assessment and Plan Assessment and Plan (1) Acute renal failure (ARF): Qualifiers: Acute renal failure type: unspecified Qualified Code(s): N17.9 - Acute kidney failure, unspecified Code(s): N17.9 - Acute kidney failure, unspecified Status: Acute Assessment and Plan: Patient initially here due to concerns for blood pressure. However he was found to be in acute renal failure superimposed on CKD. Upon admission the patient's creatinine was 4.05, BUN 80, GFR 14. More recently a 1.7, BUN 60, GFR 39 on 08/16/2025. Currently follows with [place] nephrology team, last visit with them on 07/21/2025. Patient also noted to have history significant for renal artery stenosis. * IV fluids: 1L -> 125 mL/hr * add CK, urine sodium, protein/creatinine, osmolalities, urine creatinine, UA * Martinez in place at arrival, continued * monitor I&Os * hold chlorthalidone * nephrology consulted (2) Acute respiratory failure with hypoxia: Code(s): J96.01 - Acute respiratory failure with hypoxia Status: Acute Assessment and Plan: Patient noted to be nearly hypoxic in the emergency department. Desaturated to 83/84% on room air. No previous supplemental O2 requirement. Former smoker. Most recent CXR from February of 2025 showed emphysematous changes. Patient is reporting cold-like symptoms for the past 2-3 weeks, currently experiencing and mild intermittent cough and congestion however he does report he feels he is not overcome the cold that has been ongoing. No shortness of breath. No fevers or chills. No nausea vomiting or diarrhea. * patient positive for influenza A * continue to wean oxygen as tolerated * will order V/Q scan to rule out PE * incentive spirometer while awake (3) Influenza A: Code(s): J10.1 - Influenza due to other identified influenza virus with other respiratory manifestations Status: Acute Assessment and Plan: patient tested positive for influenza A * initiated on Tamiflu * antipyretics * antiemetics * encourage oral hydration * droplet isolation (4) Type 2 diabetes mellitus with other diabetic kidney complication: Code(s): E11.29 - Type 2 diabetes mellitus with other diabetic kidney complication Status: Chronic Assessment and Plan: * hypoglycemia protocol * POC blood glucose ACHS * no longer on oral anti diabetic medication, A1C 7.2% on 10/29/2024. Update A1c. * correct regimen ordered - moderate dose TIDWM, based off BMI (5) Chronic hypertension: Code(s): I10 - Essential (primary) hypertension Status: Acute Assessment and Plan: patient continues to have intermittent hypertensive episodes his systolic ranged from 190s to 130s, last echocardiogram February 2025 showed grade 1 diastolic dysfunction with LVEF of 65-70% * continue home medications: Irbesartan, labetalol, nifedipine, clonidine * do wonder if patient has been compliant with his clonidine which can cause rebound HTN * monitor BP per unit protocol (6) Anemia: Qualifiers: Anemia type: due to chronic kidney disease Chronic kidney disease stag e: unspecified stage Qualified Code(s): N18.9 - Chronic kidney disease, unspecified; D63.1 - Anemia in chronic kidney disease Code(s): D64.9 - Anemia, unspecified Status: Acute Assessment and Plan: Patient has history of chronic anemia secondary to CKD. Currently stable. * trend H&H * transfuse PRBCs if hemoglobin <7.0 * no current evidence of acute GI be Plan Code status: Full code per patient DVT prophylaxis: SCDs PT/OT notes: PT/OT evaluation pending Disposition: patient continues admission to the medical unit for acute respiratory failure with hypoxia likely secondary to influenza a but will get V/Q scan to rule out PE, acute on chronic kidney injury likely related to dehydration and uncontrolled BP nephrology consulted and following. PT/OT evaluation for recommendations on discharge planning needs. Medical Record Review I have reviewed the following patient records and this information was taken into consideration when formulating the assessment and plan.: previous labs, previous ER visits and previous hospitalizations Consultations Consultations: I have discussed the care of this pt with the consulting providers. Time Spent With Patient Time with patient: 15 - 25 minutes Subjective Date/time seen: 08/25/25 11:35 Interval history: Patient is an 85-year-old male who was admitted for evaluation and treatment acute kidney injury and hypertensive emergency 08/25/2025: Assumed Care Patient feels better but still with congestion. Supplemental oxygen weaned to 2L. Denies CP, N/V, or SOB. Review of Systems Review of Systems: All systems reviewed & are unremarkable except as noted in HPI and below Exam Const: General: comfortable and no acute distress Other: , male, elderly, nontoxic appearance HENMT: Face/Nose/Sinus: Normal nares present Mouth: Yes moist mucous membranes Eyes: General: appearance normal, both eyes and all related structures Sclera: sclerae normal Pupils: Equal, round and reactive pupils present EOM: EOMs intact bilaterally Resp: Effort & Inspection: normal respiratory effort Auscultation: clear to auscultation bilaterally Cardio: Rate: regular rate Rhythm: regular rhythm Other: S1-S2 present without murmur, rub, ectopy GI: Other: Abdomen soft, nondistended, nontender. Normoactive bowel sounds in all quadrants. Urinary Catheter: Urinary Catheter: patent and draining and urine clear Skin: General skin exam: normal color and no rashes or lesions noted Wounds: no wounds Neuro: Cranial nerves: Yes Equal, round and reactive pupils present Speech: normal speech Motor exam (neuro): 5/5 motor strength present throughout Sensory Exam: normal sensation Other: A&O x4 Psych: Mental Status: mental status grossly normal Affect: normal affect Other: Good insight and judgment, pleasant Objective Data Vital Signs Vital Signs: Vital Signs - 24 hr 08/24/25 11:46 08/24/25 11:47 08/24/25 12:05 Temperature Pulse Rate 57 L 54 L 53 L Respiratory Rate 16 17 13 Blood Pressure 155/54 H Pulse Oximetry 93 94 84 L Oxygen Delivery Oxygen Flow Rate Fraction of Inspired Oxygen 08/24/25 12:15 08/24/25 12:17 08/24/25 12:21 Temperature 98.2 F Pulse Rate 55 L 54 L 52 L Respiratory Rate 14 13 16 Blood Pressure 144/46 H 144/46 H Pulse Oximetry 83 L 83 L 96 Oxygen Delivery Oxygen Flow Rate Fraction of Inspired Oxygen 08/24/25 12:31 08/24/25 12:45 08/24/25 12:47 Temperature Pulse Rate 55 L 56 L 56 L Respiratory Rate 15 18 14 Blood Pressure 169/55 H Pulse Oximetry 86 L 96 95 Oxygen Delivery Oxygen Flow Rate Fraction of Inspired Oxygen 08/24/25 12:48 08/24/25 13:00 08/24/25 13:02 Temperature Pulse Rate 58 L 59 L 57 L Respiratory Rate 13 18 15 Blood Pressure 153/51 H Pulse Oximetry 95 98 Oxygen Delivery Oxygen Flow Rate Fraction of Inspired Oxygen 08/24/25 13:15 08/24/25 13:17 08/24/25 13:30 Temperature Pulse Rate 58 L 60 60 Respiratory Rate 17 13 15 Blood Pressure 159/145 H Pulse Oximetry 100 98 92 Oxygen Delivery Oxygen Flow Rate Fraction of Inspired Oxygen 08/24/25 13:32 08/24/25 13:45 08/24/25 14:00 Temperature Pulse Rate 62 59 L 66 Respiratory Rate 15 15 21 H Blood Pressure 148/55 H Pulse Oximetry 98 97 100 Oxygen Delivery Oxygen Flow Rate Fraction of Inspired Oxygen 08/24/25 14:34 08/24/25 14:44 08/24/25 14:49 Temperature Pulse Rate 58 L 60 Respiratory Rate 14 14 Blood Pressure 185/86 H Pulse Oximetry 97 96 96 Oxygen Delivery Nasal Cannula Oxygen Flow Rate 3 Fraction of Inspired Oxygen 08/24/25 14:52 08/24/25 15:00 08/24/25 15:02 Temperature Pulse Rate 61 60 60 Respiratory Rate 13 15 14 Blood Pressure 190/59 H Pulse Oximetry 97 97 97 Oxygen Delivery Oxygen Flow Rate Fraction of Inspired Oxygen 08/24/25 15:15 08/24/25 15:17 08/24/25 15:30 Temperature Pulse Rate 59 L 59 L 61 Respiratory Rate 13 17 16 Blood Pressure 172/67 H Pulse Oximetry 97 97 98 Oxygen Delivery Oxygen Flow Rate Fraction of Inspired Oxygen 08/24/25 15:32 08/24/25 15:45 08/24/25 15:47 Temperature Pulse Rate 55 L 66 65 Respiratory Rate 13 15 16 Blood Pressure 174/58 H 168/96 H Pulse Oximetry 98 100 99 Oxygen Delivery Oxygen Flow Rate Fraction of Inspired Oxygen 08/24/25 16:27 08/24/25 20:00 08/24/25 21:32 Temperature 97.4 F L 97.5 F L Pulse Rate 63 54 L 57 L Respiratory Rate 20 20 16 Blood Pressure 167/53 H 151/54 H Pulse Oximetry 91 93 95 Oxygen Delivery Nasal Cannula Oxygen Flow Rate 2 Fraction of Inspired Oxygen 08/24/25 22:01 08/24/25 22:13 08/24/25 22:15 Temperature Pulse Rate 50 L 54 L Respiratory Rate 20 Blood Pressure Pulse Oximetry 93 93 Oxygen Delivery Nasal Cannula Oxygen Flow Rate 2 Fraction of Inspired Oxygen 08/25/25 05:21 08/25/25 08:00 08/25/25 08:59 Temperature 97.5 F L Pulse Rate 52 L 55 L Respiratory Rate 16 Blood Pressure 167/47 H Pulse Oximetry 94 97 Oxygen Delivery Nasal Cannula Oxygen Flow Rate 2 Fraction of Inspired Oxygen 08/25/25 09:22 08/25/25 09:27 Temperature Pulse Rate 58 L 75 Respiratory Rate 18 20 Blood Pressure Pulse Oximetry 93 Oxygen Delivery Nasal Cannula Oxygen Flow Rate 4 Fraction of Inspired Oxygen Intake/Output Intake/Output: Intake & Output 08/22/25 08/23/25 08/24/25 08/25/25 23:59 23:59 23:59 23:59 Intake Total 904.2 550 Output Total 6934 9504 Balance -620.8 -1375 Meds/Results Medications: Active Medications Generic Name Dose Route Start Last Admin Trade Name Tomeka PRN Reason Stop Dose Admin Acetaminophen 650 mg 08/24/25 14:13 Acetaminophen 325 Mg Tablet PO Q4H PRN Mild Pain (1-3) or Fever Aspirin 81 mg 08/25/25 09:00 08/25/25 08:56 Aspirin 81 Mg Enteric Tablet PO 81 mg DAILY CHAPARRO Administration Atorvastatin Calcium 40 mg 08/25/25 09:00 08/25/25 08:55 Atorvastatin 20 Mg Tablet PO 40 mg DAILY CH[facility]ARRO Administration Clonidine HCl 0.2 mg 08/24/25 21:15 08/25/25 08:56 Clonidine Hcl 0.1 Mg Tablet PO 0.2 mg Q12HR CHAPARRO Administration Clonidine HCl 0.1 mg 08/25/25 16:00 Clonidine Hcl 0.1 Mg Tablet PO DAILY@1600 CH[facility]O Dextrose 12.5 gm 08/24/25 16:12 Dextrose 50% 25 Gm/50 Ml Syringe IV PUSH PRN PRN Hypoglycemia Protocol Finasteride 5 mg 08/25/25 09:00 08/25/25 08:55 Finasteride 5 Mg Tablet PO 5 mg DAILY CHAPARRO Administration Fluticasone/Umeclidinium/Vilanterol 1 puff 08/25/25 09:00 08/25/25 09:23 Fluticasone/Umeclidin/Vilanter 100-62.5-25 Mcg Ellipta INHALATION 1 puff DAILY CHAPARRO Administration Gabapentin 100 mg 08/24/25 21:10 08/25/25 08:56 Gabapentin 100 Mg Capsule PO 100 mg TID CHAPARRO Administration Glucagon 1 mg 08/24/25 16:12 Glucagon For Inj 1 Mg Vial IM PRN PRN Hypoglycemia Protocol Glucose 15 gm 08/24/25 16:12 Glucose Oral Gel 15 Gm Of Glucse In 37.5 Gm Tube PO PRN PRN Hypoglycemia Protocol Sodium Chloride 1,000 mls @ 75 mls/hr 08/24/25 14:15 08/25/25 05:32 Normal Saline Iv IV CONT 125 mls/hr .[id number] [facility]ARRO Administration Dextrose 1,000 mls @ 100 mls/hr 08/24/25 16:12 Dextrose 5% 1,000 Ml IVPB PRN PRN Hypoglycemia Protocol Insulin Aspart 1 - 3 units 08/24/25 21:00 08/24/25 22:07 Insulin Aspart (*Bkc) 100 Units/Ml SUB-Q Not Given HS [facility] Protocol Insulin Aspart 3 - 6 units 08/24/25 17:00 08/25/25 09:12 Insulin Aspart (*Bkc) 100 Units/Ml SUB-Q 3 units TIDWM CHAPARRO Administration Protocol Irbesartan 300 mg 08/25/25 09:00 08/25/25 08:55 Irbesartan 150 Mg Tablet PO 300 mg DAILY CH[facility]O Administration Labetalol HCl 300 mg 08/24/25 21:00 08/25/25 08:59 Labetalol Hcl 100 Mg Tablet PO 300 mg Q12HR [facility] Administration Lorazepam 0.5 mg 08/24/25 20:58 Lorazepam (*Crx) 0.5 Mg Tablet PO BID PRN Anxiety Nifedipine 90 mg 08/25/25 09:00 08/25/25 08:55 Nifedipine 30 Mg Tab.Er.24 PO 90 mg DAILY [facility]O Administration Ondansetron HCl 4 mg 08/24/25 14:13 Ondansetron Inj 4 Mg/2 Ml Vial IV PUSH Q4H PRN Nausea Pantoprazole Sodium 40 mg 08/24/25 21:10 08/25/25 08:55 Pantoprazole 40 Mg Tablet PO 40 mg BID [facility]O Administration Polysaccharide Iron Complex 150 mg 08/25/25 09:00 08/25/25 08:55 Polysaccharide Iron Complex 150 Mg Capsule PO 150 mg DAILY [facility]O Administration Tamsulosin HCl 0.4 mg 08/25/25 09:00 08/25/25 08:55 Tamsulosin Hcl 0.4 Mg Capsule PO 0.4 mg DAILY [facility]ARRO Administration Radiology Results: ITS Impressions Renal Ultrasound 08/24/25 13:14 IMPRESSION: 1. No hydronephrosis. Chest X-Ray 08/24/25 17:28 IMPRESSION: 1. No acute findings. Emphysema of lungs. Atherosclerotic aorta. Labs Labs: Laboratory Results - last 24 hr 08/24/25 08/24/25 08/24/25 11:55 17:34 18:55 WBC 5.4 RBC 4.18 L Hgb 10.8 L Hct 34.0 L MCV 81.3 MCH 25.8 L MCHC 31.8 L RDW 18.6 H Plt Count 197 MPV 10.4 Immature Gran % (Auto) 0.2 Neut % (Auto) 53.9 Lymph % (Auto) 31.8 [place] % (Auto) 9.9 H Eos % (Auto) 3.6 Baso % (Auto) 0.6 Lymph # (Auto) 1.70 [place] # (Auto) 0.5 Eos # (Auto) 0.2 Baso # (Auto) 0.0 Abs Immat Gran (auto) 0.01 Absolute Neuts (auto) 2.9 Absolute Nucleated RBC 0.000 Nucleated RBC % 0.0 Sodium 138 Potassium 4.2 Chloride 103 Carbon Dioxide 23 Anion Gap 12 BUN 80 H D Creatinine 4.05 H Estim Creat Clear Calc 13 Estimated GFR 14 L Glucose 112 H POC Capillary Glucose 118 H Hemoglobin A1c Serum Osmolality Cancelled Lactic Acid 1.9 Calcium 9.5 Total Bilirubin 0.7 AST 26 ALT 18 Alkaline Phosphatase 68 Total Creatine Kinase 92 Troponin I 0.016 C-Reactive Protein 3.8 H Total Protein 6.6 Albumin 3.7 Random Cortisol Urine Color Yellow Urine Appearance Clear Urine pH 6.5 Ur Specific [place] 1.008 Urine Protein Negative Urine Glucose (UA) Negative Urine Ketones Negative Ur Blood (Man) Negative Urine Nitrate Negative Urine Bilirubin Negative Urine Urobilinogen 0.2 Leukocyte Esterase Rfl Negative U Random Total Protein 19 Ur Random Sodium 111 Ur Random Urea 262 Urine Creatinine 26.3 Protein/Creat Ratio 2 Influenza A (RT-PCR) Influenza B (RT-PCR) RSV (RT-PCR) SARS-CoV-2 RNA (RT-PCR) 08/24/25 08/24/25 08/25/25 18:55 21:35 05:12 WBC 4.9 RBC 4.37 L Hgb 11.1 L Hct 35.5 L MCV 81.2 MCH 25.4 L MCHC 31.3 L RDW 17.9 H Plt Count 203 MPV 10.8 H Immature Gran % (Auto) 0.4 Neut % (Auto) 58.5 Lymph % (Auto) 24.7 [place] % (Auto) 8.8 H Eos % (Auto) 7.2 H Baso % (Auto) 0.4 Lymph # (Auto) 1.20 [place] # (Auto) 0.4 Eos # (Auto) 0.4 H Baso # (Auto) 0.0 Abs Immat Gran (auto) 0.02 Absolute Neuts (auto) 2.8 Absolute Nucleated RBC 0.000 Nucleated RBC % 0.0 Sodium 141 Potassium 3.9 Chloride 105 Carbon Dioxide 27 Anion Gap 9 BUN 67 H D Creatinine 2.76 H Estim Creat Clear Calc 16 Estimated GFR 22 L Glucose 112 H POC Capillary Glucose 122 H Hemoglobin A1c 7.0 H Serum Osmolality Lactic Acid Calcium 9.5 Total Bilirubin AST ALT Alkaline Phosphatase Total Creatine Kinase Troponin I C-Reactive Protein Total Protein Albumin Random Cortisol 20.50 Urine Color Urine Appearance Urine pH Ur Specific [place] Urine Protein Urine Glucose (UA) Urine Ketones Ur Blood (Man) Urine Nitrate Urine Bilirubin Urine Urobilinogen Leukocyte Esterase Rfl U Random Total Protein Ur Random Sodium Ur Random Urea Urine Creatinine 24.6 Protein/Creat Ratio 2 0.72 H Influenza A (RT-PCR) Influenza B (RT-PCR) RSV (RT-PCR) SARS-CoV-2 RNA (RT-PCR) 08/25/25 08/25/25 08/25/25 05:59 07:55 09:08 WBC RBC Hgb Hct MCV MCH MCHC RDW Plt Count MPV Immature Gran % (Auto) Neut % (Auto) Lymph % (Auto) [place] % (Auto) Eos % (Auto) Baso % (Auto) Lymph # (Auto) [place] # (Auto) Eos # (Auto) Baso # (Auto) Abs Immat Gran (auto) Absolute Neuts (auto) Absolute Nucleated RBC Nucleated RBC % Sodium Potassium Chloride Carbon Dioxide Anion Gap BUN Creatinine Estim Creat Clear Calc Estimated GFR Glucose POC Capillary Glucose 101 217 H Hemoglobin A1c Serum Osmolality Lactic Acid Calcium Total Bilirubin AST ALT Alkaline Phosphatase Total Creatine Kinase Troponin I C-Reactive Protein Total Protein Albumin Random Cortisol Urine Color Urine Appearance Urine pH Ur Specific [place] Urine Protein Urine Glucose (UA) Urine Ketones Ur Blood (Man) Urine Nitrate Urine Bilirubin Urine Urobilinogen Leukocyte Esterase Rfl U Random Total Protein Ur Random Sodium Ur Random Urea Urine Creatinine Protein/Creat Ratio 2 Influenza A (RT-PCR) Positive A Influenza B (RT-PCR) Negative RSV (RT-PCR) Negative SARS-CoV-2 RNA (RT-PCR) Negative Attestation: I personally reviewed all lab results Imaging Attestation: I personally reviewed this imaging study Quality VTE Prophylaxis VTE prophylaxis: mechanical ordered -Patient's previous records reviewed on admission -ER notes reviewed in detail on admission -discussed all findings and current treatment plan with patient/Family/POA -Consultations reviewed for recommendations -Patient's disposition for safe discharge discussed with medical case worker -radiology imaging, EKG and test results I have personally reviewed and interpreted unless otherwise specified Dictation performed by [employer] direct speech recognition software, therefore clearance coordinator variants and typographical errors may occur. Hospitalist MIPS Advance Care Plan I have confirmed that the patient's Advanced Care Plan is present, code status is documented, or surrogate decision maker is listed in patient medical record.: Yes Medication Reconciliation I have utilized all available resources to obtain, update and review the patients current medications (includes all prescriptions, OTC, herbals, cannabis, and nutritional supplements).: Yes The patient is not eligible for med reconciliation; the patient is in a emergent medical situation where delaying treatment would jeopardize the patients health.: No
[2025-08-25] MEDS: OSELTAMIVIR PHOSPHATE 30 MG CAPSULE PO (13:15)
[2025-08-26] VITALS (12 sets, daily range): BP systolic 132–183; BP diastolic 42–57; PULSE 50–65; RESP 16–20; TEMP 36.3–36.7; O2SAT 90–96
[2025-08-26 05:10] LABS: Hematocrit 35.3 % (42.0-52.0); Hemoglobin 11.0 g/dL (14.0-18.0); Mean Corpuscular HGB Conc 31.2 g/dl (32-36); Mean Corpuscular Hemoglobin 25.4 pg (26-34); Mean Corpuscular Volume 81.5 fl (80-100); Platelet Count Result 207 k/mm3 (150-375); Red Blood Count 4.33 M/mm3 (4.6-6.20); White Blood Count 7.2 K/mm3 (4.5-10.0)
[2025-08-26 05:35] LABS: Alanine Aminotransferase 14 U/L (6-50); Albumin Level 3.3 g/dL (3.5-5.1); Alkaline Phosphatase 67 U/L (38-126); Anion Gap 7 mmol/L (4-12); Aspartate Amino Transferase 22 U/L (17-59); Bilirubin,Total 0.8 mg/dL (0.2-1.3); Blood Urea Nitrogen 41 mg/dL (9-20); Calcium 9.2 mg/dL (8.4-10.2); Carbon Dioxide 24 mmol/L (22-30); Chloride 110 mmol/L (98-107); Estimated CRCL calculation 26 ml/min; Estimated Glomerular Filt Rate 39; Glucose 104 mg/dL (65-110); Magnesium 1.2 mg/dL (1.6-2.3); Potassium 3.7 mmol/L (3.4-5.0); Sodium 141 mmol/L (137-145); Total Protein 6.2 g/dL (6.3-8.2)
[2025-08-26] MEDS: SODIUM CHLORIDE 0.9% IV 1,000 ML 75 ML IV CONT (06:13)
--- NOTE | 2025-08-26 07:57 | PM.PNNEP ---
Progress Note: A&P Assessment and Plan (1) Acute renal failure (ARF): Qualifiers: Acute renal failure type: unspecified Qualified Code(s): N17.9 - Acute kidney failure, unspecified Code(s): N17.9 - Acute kidney failure, unspecified Status: Acute Assessment and Plan: patient has chronic kidney disease. This is due to hypertension and vascular disease. He says he has borderline diabetes as well. The patient's baseline creatinine runs between 1.5 in 2.0. The patient came in with low blood pressure, respiratory symptoms, and a high creatinine. He was given some IV fluids. He feels better this morning. His blood pressure is better, his creatinine is down, and is breathing is better. his MARIANA is most likely due to low blood pressure. He does say his swelling is better. I suspect that the flu brought on the hypotension and respiratory symptoms along with dehydration diuretics are on hold. He is on his new regimen for blood pressure ( except for the chlorthalidone) and his blood pressure is running in the 130s to 150s. We can keep this going. Creatinine is better. Just about back to baseline. He is eating okay. We can stop the IV fluids. (2) Hypotension: Code(s): I95.9 - Hypotension, unspecified Status: Acute Assessment and Plan: Blood pressure is better. He is back on his Non diuretic blood pressure meds. (3) Acute respiratory failure with hypoxia: Code(s): J96.01 - Acute respiratory failure with hypoxia Status: Acute Assessment and Plan: Chest x-ray was clear. He does have COPD. he has the flu He is on oxygen. (4) Chronic kidney disease, stage 3: Code(s): N18.30 - Chronic kidney disease, stage 3 unspecified Status: Acute Assessment and Plan: see above (5) Type 2 diabetes mellitus: Code(s): E11.9 - Type 2 diabetes mellitus without complications Status: Acute Assessment and Plan: management per hospitalists Subjective Date/time seen: 08/26/25 07:57 Interval history: Patient feels okay now has been put on respiratory isolation because of the diagnosis of the fluid Review of Systems Cardiovascular: Cardiovascular: Reports no additional cardiovascular complaints Respiratory: Respiratory: Reports no additional respiratory complaints Gastrointestinal: Gastrointestinal: Reports no additional gastrointestinal complaints Genitourinary: Genitourinary: Reports no additional male genitourinary complaints Exam Narrative: WDWN in NAD skin no rash head ncat lungs clear cor reg no rub abd BS+ nontender and soft ext no edema. Objective Data Vital Signs Vital Signs: Vital Signs - 24 hr 08/25/25 08:00 08/25/25 08:59 08/25/25 09:22 Temperature Pulse Rate 55 L 58 L Respiratory Rate 18 Blood Pressure Pulse Oximetry 97 Oxygen Delivery Nasal Cannula Oxygen Flow Rate 2 Fraction of Inspired Oxygen 08/25/25 09:27 08/25/25 14:08 08/25/25 15:02 Temperature 97.9 F Pulse Rate 75 51 L Respiratory Rate 20 18 Blood Pressure 124/55 L Pulse Oximetry 93 93 Oxygen Delivery Nasal Cannula Nasal Cannula Oxygen Flow Rate 4 2.5 Fraction of Inspired Oxygen 08/25/25 20:00 08/25/25 20:00 08/25/25 20:52 Temperature 97.8 F Pulse Rate 51 L 65 50 L Respiratory Rate 20 20 Blood Pressure 135/41 L Pulse Oximetry 96 93 Oxygen Delivery Nasal Cannula Oxygen Flow Rate 2 Fraction of Inspired Oxygen 08/26/25 00:00 08/26/25 03:29 Temperature 97.4 F L 97.6 F Pulse Rate 56 L 65 Respiratory Rate 20 20 Blood Pressure 151/47 H 152/49 H Pulse Oximetry 95 93 Oxygen Delivery Oxygen Flow Rate Fraction of Inspired Oxygen Intake/Output Intake/Output: Intake & Output 08/23/25 08/24/25 08/25/25 08/26/25 23:59 23:59 23:59 23:59 Intake Total 904.2 2150 1390 Output Total 1525 2475 1000 Balance -620.8 -325 390 Meds/Results Medications: Active Medications Generic Name Dose Route Start Last Admin Trade Name Freq PRN Reason Stop Dose Admin Acetaminophen 650 mg 08/24/25 14:13 Acetaminophen 325 Mg Tablet PO Q4H PRN Mild Pain (1-3) or Fever Aspirin 81 mg 08/25/25 09:00 08/25/25 08:56 Aspirin 81 Mg Enteric Tablet PO 81 mg DAILY [facility] Administration Atorvastatin Calcium 40 mg 08/25/25 09:00 08/25/25 08:55 Atorvastatin 20 Mg Tablet PO 40 mg DAILY [facility] Administration Clonidine HCl 0.2 mg 08/24/25 21:15 08/25/25 20:51 Clonidine Hcl 0.1 Mg Tablet PO Not Given Q12HR [facility] Clonidine HCl 0.1 mg 08/25/25 16:00 08/25/25 16:23 Clonidine Hcl 0.1 Mg Tablet PO 0.1 mg DAILY@1600 [facility] Administration Dextrose 12.5 gm 08/24/25 16:12 Dextrose 50% 25 Gm/50 Ml Syringe IV PUSH PRN PRN Hypoglycemia Protocol Finasteride 5 mg 08/25/25 09:00 08/25/25 08:55 Finasteride 5 Mg Tablet PO 5 mg DAILY [facility] Administration Fluticasone/Umeclidinium/Vilanterol 1 puff 08/25/25 09:00 08/25/25 09:23 Fluticasone/Umeclidin/Vilanter 100-62.5-25 Mcg Ellipta INHALATION 1 puff DAILY [facility] Administration Gabapentin 100 mg 08/24/25 21:10 08/25/25 16:21 Gabapentin 100 Mg Capsule PO 100 mg TID [facility] Administration Glucagon 1 mg 08/24/25 16:12 Glucagon For Inj 1 Mg Vial IM PRN PRN Hypoglycemia Protocol Glucose 15 gm 08/24/25 16:12 Glucose Oral Gel 15 Gm Of Glucse In 37.5 Gm Tube PO PRN PRN Hypoglycemia Protocol Sodium Chloride 1,000 mls @ 75 mls/hr 08/24/25 14:15 08/26/25 06:13 Normal Saline Iv IV CONT 75 mls/hr .[id number] [facility] Administration Dextrose 1,000 mls @ 100 mls/hr 08/24/25 16:12 Dextrose 5% 1,000 Ml IVPB PRN PRN Hypoglycemia Protocol Insulin Aspart 1 - 3 units 08/24/25 21:00 08/25/25 20:52 Insulin Aspart (*Bkc) 100 Units/Ml SUB-Q Not Given HS [facility] Protocol Insulin Aspart 3 - 6 units 08/24/25 17:00 08/25/25 18:08 Insulin Aspart (*Bkc) 100 Units/Ml SUB-Q Not Given TIDWM [facility] Protocol Irbesartan 300 mg 08/25/25 09:00 08/25/25 08:55 Irbesartan 150 Mg Tablet PO 300 mg DAILY [facility] Administration Labetalol HCl 300 mg 08/24/25 21:00 08/25/25 20:52 Labetalol Hcl 100 Mg Tablet PO Not Given Q12HR [facility] Lorazepam 0.5 mg 08/24/25 20:58 Lorazepam (*Crx) 0.5 Mg Tablet PO BID PRN Anxiety Nifedipine 90 mg 08/25/25 09:00 08/25/25 08:55 Nifedipine 30 Mg Tab.Er.24 PO 90 mg DAILY [facility] Administration Ondansetron HCl 4 mg 08/24/25 14:13 Ondansetron Inj 4 Mg/2 Ml Vial IV PUSH Q4H PRN Nausea Oseltamivir Phosphate 30 mg 08/25/25 12:00 08/25/25 13:15 Oseltamivir Phosphate 30 Mg Capsule PO 08/29/25 12:01 30 mg Q24H [facility] Administration Pantoprazole Sodium 40 mg 08/24/25 21:10 08/25/25 16:21 Pantoprazole 40 Mg Tablet PO 40 mg BID [facility] Administration Polysaccharide Iron Complex 150 mg 08/25/25 09:00 08/25/25 08:55 Polysaccharide Iron Complex 150 Mg Capsule PO 150 mg DAILY [facility] Administration Tamsulosin HCl 0.4 mg 08/25/25 09:00 08/25/25 08:55 Tamsulosin Hcl 0.4 Mg Capsule PO 0.4 mg DAILY [facility] Administration Radiology Results: ITS Impressions Renal Ultrasound 08/24/25 13:14 IMPRESSION: 1. No hydronephrosis. Chest X-Ray 08/24/25 17:28 IMPRESSION: 1. No acute findings. Emphysema of lungs. Atherosclerotic aorta. Pulmonary Perfusion Imaging 08/25/25 13:17 IMPRESSION: 1: Low probability for pulmonary embolism. Labs Labs: Laboratory Results - last 24 hr 08/25/25 08/25/25 08/25/25 05:12 07:55 09:08 WBC RBC Hgb Hct MCV MCH MCHC RDW Plt Count MPV Sodium Potassium Chloride Carbon Dioxide Anion Gap BUN Creatinine Estim Creat Clear Calc Estimated GFR Glucose POC Capillary Glucose 101 217 H Calcium Phosphorus Magnesium Total Bilirubin AST ALT Alkaline Phosphatase Total Protein Albumin Random Cortisol 20.50 08/25/25 08/25/25 08/25/25 11:42 17:08 20:31 WBC RBC Hgb Hct MCV MCH MCHC RDW Plt Count MPV Sodium Potassium Chloride Carbon Dioxide Anion Gap BUN Creatinine Estim Creat Clear Calc Estimated GFR Glucose POC Capillary Glucose 110 H 117 H 161 H Calcium Phosphorus Magnesium Total Bilirubin AST ALT Alkaline Phosphatase Total Protein Albumin Random Cortisol 08/26/25 04:57 WBC 7.2 RBC 4.33 L Hgb 11.0 L Hct 35.3 L MCV 81.5 MCH 25.4 L MCHC 31.2 L RDW 17.8 H Plt Count 207 MPV 10.4 Sodium 141 Potassium 3.7 Chloride 110 H Carbon Dioxide 24 Anion Gap 7 BUN 41 H D Creatinine 1.68 H Estim Creat Clear Calc 26 Estimated GFR 39 L Glucose 104 POC Capillary Glucose Calcium 9.2 Phosphorus 3.1 Magnesium 1.2 L Total Bilirubin 0.8 AST 22 ALT 14 Alkaline Phosphatase 67 Total Protein 6.2 L Albumin 3.3 L Random Cortisol
[2025-08-26] MEDS: IRBESARTAN 150 MG TABLET 300 MG PO (08:24)
[2025-08-26] MEDS: FINASTERIDE 5 MG TABLET PO (08:24)
[2025-08-26] MEDS: ASPIRIN 81 MG ENTERIC TABLET PO (08:24)
[2025-08-26] MEDS: TAMSULOSIN HCL 0.4 MG CAPSULE PO (08:25)
[2025-08-26] MEDS: ATORVASTATIN 20 MG TABLET 40 MG PO (08:25)
[2025-08-26] MEDS: PANTOPRAZOLE 40 MG TABLET PO ×2 (08:27→16:42)
[2025-08-26] MEDS: GABAPENTIN 100 MG CAPSULE PO ×3 (08:27→16:41)
[2025-08-26] MEDS: LABETALOL HCL 100 MG TABLET 300 MG PO ×2 (08:28→20:52)
--- NOTE | 2025-08-26 09:17 | P.PNIM_ITS ---
Assessment and Plan Assessment and Plan (1) Acute renal failure (ARF): Qualifiers: Acute renal failure type: unspecified Qualified Code(s): N17.9 - Acute kidney failure, unspecified Code(s): N17.9 - Acute kidney failure, unspecified Status: Acute Assessment and Plan: Patient initially here due to concerns for blood pressure. However he was found to be in acute renal failure superimposed on CKD. Upon admission the patient's creatinine was 4.05, BUN 80, GFR 14. More recently a 1.7, BUN 60, GFR 39 on 08/16/2025. Currently follows with [facility] neph[facility] team, last visit with them on 07/21/2025. Patient also noted to have history significant for renal artery stenosis. * IV fluids: 1L -> 125 mL/hr * add CK, urine sodium, protein/creatinine, osmolalities, urine creatinine, UA * Martinez in place at arrival, continued. Has follow up with urology scheduled next week for prostate. He reports his urologist plans to place beads. OSH hospital records not available but presumably brachytherapy * monitor I&Os * hold chlorthalidone * nephrology consulted (2) Acute respiratory failure with hypoxia: Code(s): J96.01 - Acute respiratory failure with hypoxia Status: Acute Assessment and Plan: Patient noted to be nearly hypoxic in the emergency department. Desaturated to 83/84% on room air. No previous supplemental O2 requirement. Former smoker. Most recent CXR from February of 2025 showed emphysematous changes. Patient is reporting cold-like symptoms for the past 2-3 weeks, currently experiencing and mild intermittent cough and congestion however he does report he feels he is not overcome the cold that has been ongoing. No shortness of breath. No fevers or chills. No nausea vomiting or diarrhea. Flu positive VQ scan negative for PE * patient positive for influenza A * continue to wean oxygen as tolerated. Walking O2 study today * V/Q scan to rule out PE * incentive spirometer while awake * Pep therapy, cough is productive. Course RLL * Start guaifenesin BID * Takes Trelegy, continue (3) Influenza A: Code(s): J10.1 - Influenza due to other identified influenza virus with other respiratory manifestations Status: Acute Assessment and Plan: patient tested positive for influenza A * initiated on Tamiflu, continue for 5 days * antipyretics * antiemetics * encourage oral hydration * droplet isolation (4) Type 2 diabetes mellitus with other diabetic kidney complication: Code(s): E11.29 - Type 2 diabetes mellitus with other diabetic kidney complication Status: Chronic Assessment and Plan: * hypoglycemia protocol * POC blood glucose ACHS * no longer on oral anti diabetic medication, A1C 7.2% on 10/29/2024. Update A1c. * correct regimen ordered - moderate dose TIDWM, based off BMI (5) Chronic hypertension: Code(s): I10 - Essential (primary) hypertension Status: Acute Assessment and Plan: patient continues to have intermittent hypertensive episodes his systolic ranged from 190s to 130s, last echocardiogram February 2025 showed grade 1 diastolic dysfunction with LVEF of 65-70% * continue home medications: Irbesartan, labetalol, nifedipine, clonidine * Patient reports he has been very compliant with his clonidine but medication does have a risk of rebound HTN * monitor BP per unit protocol (6) Anemia: Qualifiers: Anemia type: due to chronic kidney disease Chronic kidney disease stage: unspecified stage Qualified Code(s): N18.9 - Chronic kidney disease, unspecified; D63.1 - Anemia in chronic kidney disease Code(s): D64.9 - Anemia, unspecified Status: Acute Assessment and Plan: Patient has history of chronic anemia secondary to CKD. Currently stable. * trend H&H * transfuse PRBCs if hemoglobin <7.0 * no current evidence of acute GI bleeding (7) Hypomagnesemia: Code(s): E83.42 - Hypomagnesemia Status: Acute Assessment and Plan: Magnesium 1.2, giving 1G IV and 400mg PO x2, repeat in AM Plan Code status: Full code per patient DVT prophylaxis: SCDs, subq heparin PT/OT notes: PT/OT evaluation OK for discharge home. No rehab Disposition: patient continues admission to the medical unit for acute respiratory failure with hypoxia likely secondary to influenza A. Start nebs and airway clearance treatments. Walking oxygen for home. MARIANA improving, likely related to dehydration and uncontrolled BP chronically. Nephrology consulted and following. Blood pressure above goal. PT/OT evaluation for recommendations on discharge planning needs Time Spent With Patient Time with patient: Greater than 35 minutes Subjective Date/time seen: 08/26/25 09:17 Interval history: BP elevated to 183/57 VQ low probability for PE Creatinine improving 4.05>1.68. Mag 1.2, giving 1g IV mag Flu swab positive overnight. Needs a walking oxygen study. Review of Systems Review of Systems: All systems reviewed & are unremarkable except as noted in HPI and below Exam Narrative: General - Awake and alert. No acute distress Eyes - PERRLA, EOM intact ENT - No thrush, No erythema Neck - No noticeable or palpable swelling Lymph Nodes - No lymphadenopathy Cardiovascular - RRR no m/r/g, no JVD Lungs: Clear to auscultation, No wheezing, use of accessory muscles, no crackles Skin - Skin warm and dry, no wounds or rashes Abdomen - Normal bowel sounds, abdomen soft and nontender Extremities - No edema, cyanosis or clubbing Musculoskeletal - 5/5 strength, normal range of motion, no swollen or erythematous joints. Neurological ? Alert and oriented x 3, CN 2-12 grossly intact. Psych: Normal mood and affect Objective Data Vital Signs Vital Signs: Vital Signs - 24 hr 08/25/25 09:22 08/25/25 09:27 08/25/25 14:08 Temperature 97.9 F Pulse Rate 58 L 75 51 L Respiratory Rate 18 20 18 Blood Pressure 124/55 L Pulse Oximetry 93 93 Oxygen Delivery Nasal Cannula Oxygen Flow Rate 4 Fraction of Inspired Oxygen 08/25/25 15:02 08/25/25 20:00 08/25/25 20:00 Temperature 97.8 F Pulse Rate 51 L 65 Respiratory Rate 20 20 Blood Pressure 135/41 L Pulse Oximetry 96 93 Oxygen Delivery Nasal Cannula Nasal Cannula Oxygen Flow Rate 2.5 2 Fraction of Inspired Oxygen 28 08/25/25 20:52 08/26/25 00:00 08/26/25 03:29 Temperature 97.4 F L 97.6 F Pulse Rate 50 L 56 L 65 Respiratory Rate 20 20 Blood Pressure 151/47 H 152/49 H Pulse Oximetry 95 93 Oxygen Delivery Oxygen Flow Rate Fraction of Inspired Oxygen 08/26/25 08:00 08/26/25 08:28 Temperature 97.5 F L Pulse Rate 56 L 61 Respiratory Rate 18 Blood Pressure 183/57 H Pulse Oximetry 94 Oxygen Delivery Oxygen Flow Rate Fraction of Inspired Oxygen Intake/Output Intake/Output: Intake & Output 08/23/25 08/24/25 08/25/25 08/26/25 23:59 23:59 23:59 23:59 Intake Total 904.2 2150 1390 Output Total 1525 2475 1000 Balance -620.8 -325 390 Meds/Results Medications: Active Medications Generic Name Dose Route Start Last Admin Trade Name Freq PRN Reason Stop Dose Admin Acetaminophen 650 mg 08/24/25 14:13 Acetaminophen 325 Mg Tablet PO Q4H PRN Mild Pain (1-3) or Fever Aspirin 81 mg 08/25/25 09:00 08/26/25 08:24 Aspirin 81 Mg Enteric Tablet PO 81 mg DAILY [facility] Administration Atorvastatin Calcium 40 mg 08/25/25 09:00 08/26/25 08:25 Atorvastatin 20 Mg Tablet PO 40 mg DAILY [facility] Administration Clonidine HCl 0.2 mg 08/24/25 21:15 08/26/25 08:25 Clonidine Hcl 0.1 Mg Tablet PO 0.2 mg Q12HR [facility] Administration Clonidine HCl 0.1 mg 08/25/25 16:00 08/25/25 16:23 Clonidine Hcl 0.1 Mg Tablet PO 0.1 mg DAILY@1600 [facility] Administration Dextrose 12.5 gm 08/24/25 16:12 Dextrose 50% 25 Gm/50 Ml Syringe IV PUSH PRN PRN Hypoglycemia Protocol Finasteride 5 mg 08/25/25 09:00 08/26/25 08:24 Finasteride 5 Mg Tablet PO 5 mg DAILY [facility] Administration Fluticasone/Umeclidinium/Vilanterol 1 puff 08/25/25 09:00 08/26/25 08:12 Fluticasone/Umeclidin/Vilanter 100-62.5-25 Mcg Ellipta INHALATION Not Given DAILY [facility] Gabapentin 100 mg 08/24/25 21:10 08/26/25 08:27 Gabapentin 100 Mg Capsule PO 100 mg TID [facility] Administration Glucagon 1 mg 08/24/25 16:12 Glucagon For Inj 1 Mg Vial IM PRN PRN Hypoglycemia Protocol Glucose 15 gm 08/24/25 16:12 Glucose Oral Gel 15 Gm Of Glucse In 37.5 Gm Tube PO PRN PRN Hypoglycemia Protocol Dextrose 1,000 mls @ 100 mls/hr 08/24/25 16:12 Dextrose 5% 1,000 Ml IVPB PRN PRN Hypoglycemia Protocol Insulin Aspart 1 - 3 units 08/24/25 21:00 08/25/25 20:52 Insulin Aspart (*Bkc) 100 Units/Ml SUB-Q Not Given HS [facility] Protocol Insulin Aspart 3 - 6 units 08/24/25 17:00 08/26/25 09:09 Insulin Aspart (*Bkc) 100 Units/Ml SUB-Q Not Given TIDWM [facility] Protocol Irbesartan 300 mg 08/25/25 09:00 08/26/25 08:24 Irbesartan 150 Mg Tablet PO 300 mg DAILY [facility] Administration Labetalol HCl 300 mg 08/24/25 21:00 08/26/25 08:28 Labetalol Hcl 100 Mg Tablet PO 300 mg Q12HR [facility] Administration Lorazepam 0.5 mg 08/24/25 20:58 Lorazepam (*Crx) 0.5 Mg Tablet PO BID PRN Anxiety Nifedipine 90 mg 08/25/25 09:00 08/26/25 08:25 Nifedipine 30 Mg Tab.Er.24 PO 90 mg DAILY [facility] Administration Ondansetron HCl 4 mg 08/24/25 14:13 Ondansetron Inj 4 Mg/2 Ml Vial IV PUSH Q4H PRN Nausea Oseltamivir Phosphate 30 mg 08/25/25 12:00 08/25/25 13:15 Oseltamivir Phosphate 30 Mg Capsule PO 08/29/25 12:01 30 mg Q24H [facility] Administration Pantoprazole Sodium 40 mg 08/24/25 21:10 08/26/25 08:27 Pantoprazole 40 Mg Tablet PO 40 mg BID [facility] Administration Polysaccharide Iron Complex 150 mg 08/25/25 09:00 08/26/25 08:27 Polysaccharide Iron Complex 150 Mg Capsule PO 150 mg DAILY [facility] Administration Tamsulosin HCl 0.4 mg 08/25/25 09:00 08/26/25 08:25 Tamsulosin Hcl 0.4 Mg Capsule PO 0.4 mg DAILY [facility] Administration Radiology Results: ITS Impressions Renal Ultrasound 08/24/25 13:14 IMPRESSION: 1. No hydronephrosis. Chest X-Ray 08/24/25 17:28 IMPRESSION: 1. No acute findings. Emphysema of lungs. Atherosclerotic aorta. Pulmonary Perfusion Imaging 08/25/25 13:17 IMPRESSION: 1: Low probability for pulmonary embolism. Labs Labs: Laboratory Results - last 24 hr 08/25/25 08/25/25 08/25/25 05:12 11:42 17:08 WBC RBC Hgb Hct MCV MCH MCHC RDW Plt Count MPV Sodium Potassium Chloride Carbon Dioxide Anion Gap BUN Creatinine Estim Creat Clear Calc Estimated GFR Glucose POC Capillary Glucose 110 H 117 H Calcium Phosphorus Magnesium Total Bilirubin AST ALT Alkaline Phosphatase Total Protein Albumin Random Cortisol 20.50 08/25/25 08/26/25 08/26/25 20:31 04:57 07:50 WBC 7.2 RBC 4.33 L Hgb 11.0 L Hct 35.3 L MCV 81.5 MCH 25.4 L MCHC 31.2 L RDW 17.8 H Plt Count 207 MPV 10.4 Sodium 141 Potassium 3.7 Chloride 110 H Carbon Dioxide 24 Anion Gap 7 BUN 41 H D Creatinine 1.68 H Estim Creat Clear Calc 26 Estimated GFR 39 L Glucose 104 POC Capillary Glucose 161 H 107 H Calcium 9.2 Phosphorus 3.1 Magnesium 1.2 L Total Bilirubin 0.8 AST 22 ALT 14 Alkaline Phosphatase 67 Total Protein 6.2 L Albumin 3.3 L Random Cortisol Quality VTE Prophylaxis VTE prophylaxis: mechanical ordered Hospitalist MIPS Advance Care Plan I have confirmed that the patient's Advanced Care Plan is present, code status is documented, or surrogate decision maker is listed in patient medical record.: Yes Medication Reconciliation I have utilized all available resources to obtain, update and review the patients current medications (includes all prescriptions, OTC, herbals, cannabis, and nutritional supplements).: Yes
[2025-08-26] MEDS: MAGNESIUM SULF 1 GM/D5W 100 ML 1 GM/100 ML BAG IVPB (10:43)
[2025-08-26] MEDS: MAGNESIUM OXIDE 400 MG TABLET PO ×2 (10:46→16:41)
[2025-08-26] MEDS: OSELTAMIVIR PHOSPHATE 30 MG CAPSULE PO (12:23)
[2025-08-26] MEDS: guaiFENesin 12 HR 600 MG TABCR 1200 MG PO ×2 (12:23→20:52)
[2025-08-26] MEDS: FLUTICASONE/UMECLIDIN/VILANTER 100-62.5-25 MCG ELLIPTA 1 PUFF INHALATION (15:31)
[2025-08-27] VITALS (8 sets, daily range): BP systolic 150–180; BP diastolic 46–73; PULSE 48–79; RESP 16–20; TEMP 36.3–36.4; O2SAT 87–96
[2025-08-27 04:07] LABS: Osmolality, Urine 328 mOsmol/kg (.)
[2025-08-27 05:23] LABS: Hematocrit 34.5 % (42.0-52.0); Hemoglobin 10.6 g/dL (14.0-18.0); Mean Corpuscular HGB Conc 30.7 g/dl (32-36); Mean Corpuscular Hemoglobin 25.2 pg (26-34); Mean Corpuscular Volume 81.9 fl (80-100); Platelet Count Result 217 k/mm3 (150-375); Red Blood Count 4.21 M/mm3 (4.6-6.20); White Blood Count 8.6 K/mm3 (4.5-10.0)
[2025-08-27 05:46] LABS: Alanine Aminotransferase 14 U/L (6-50); Albumin Level 3.4 g/dL (3.5-5.1); Alkaline Phosphatase 74 U/L (38-126); Anion Gap 7 mmol/L (4-12); Aspartate Amino Transferase 28 U/L (17-59); Bilirubin,Total 0.9 mg/dL (0.2-1.3); Blood Urea Nitrogen 31 mg/dL (9-20); Calcium 9.2 mg/dL (8.4-10.2); Carbon Dioxide 25 mmol/L (22-30); Chloride 109 mmol/L (98-107); Estimated CRCL calculation 30 ml/min; Estimated Glomerular Filt Rate 46; Glucose 108 mg/dL (65-110); Magnesium 1.4 mg/dL (1.6-2.3); Potassium 3.6 mmol/L (3.4-5.0); Sodium 141 mmol/L (137-145); Total Protein 6.2 g/dL (6.3-8.2)
--- NOTE | 2025-08-27 07:26 | P.PNIM_ITS ---
Assessment and Plan Assessment and Plan (1) Acute renal failure (ARF): Qualifiers: Acute renal failure type: unspecified Qualified Code(s): N17.9 - Acute kidney failure, unspecified Code(s): N17.9 - Acute kidney failure, unspecified Status: Acute Assessment and Plan: Patient initially here due to concerns for blood pressure. However he was found to be in acute renal failure superimposed on CKD. Upon admission the patient's creatinine was 4.05, BUN 80, GFR 14. More recently a 1.7, BUN 60, GFR 39 on 08/16/2025. Currently follows with [place] nephrology team, last visit with them on 07/21/2025. Patient also noted to have history significant for renal artery stenosis. * s/p IV fluids * Cr trended down 1.45 * Martinez in place at arrival, continued. Has follow up with urology scheduled next week for prostate. He reports his urologist plans to place beads. OSH hospital records not available but presumably brachytherapy * monitor I&Os * hold chlorthalidone * nephrology following - suspect due hypotension which has improved. Stopped IV fluids (2) Acute respiratory failure with hypoxia: Code(s): J96.01 - Acute respiratory failure with hypoxia Status: Acute Assessment and Plan: Patient noted to be nearly hypoxic in the emergency department. Desaturated to 83/84% on room air. No previous supplemental O2 requirement. Former smoker. Most recent CXR from February of 2025 showed emphysematous changes. Patient is reporting cold-like symptoms for the past 2-3 weeks, currently experiencing and mild intermittent cough and congestion however he does report he feels he is not overcome the cold that has been ongoing. No shortness of breath. No fevers or chills. No nausea vomiting or diarrhea. Flu positive VQ scan low probabulity for PE * patient positive for influenza A * continue to wean oxygen as tolerated. Walking O2 study today * V/Q scan to rule out PE * incentive spirometer while awake * Pep therapy, cough is productive. Course RLL * Start guaifenesin BID * Takes Trelegy, continue (3) Influenza A: Code(s): J10.1 - Influenza due to other identified influenza virus with other respiratory manifestations Status: Acute Assessment and Plan: patient tested positive for influenza A * initiated on Tamiflu, continue for 5 days * antipyretics * antiemetics * encourage oral hydration * droplet isolation (4) Type 2 diabetes mellitus with other diabetic kidney complication: Code(s): E11.29 - Type 2 diabetes mellitus with other diabetic kidney complication Status: Chronic Assessment and Plan: * hypoglycemia protocol * POC blood glucose ACHS * no longer on oral anti diabetic medication, A1C 7.2% on 10/29/2024. Update A1c. * correct regimen ordered - moderate dose TIDWM, based off BMI (5) Chronic hypertension: Code(s): I10 - Essential (primary) hypertension Status: Acute Assessment and Plan: patient continues to have intermittent hypertensive episodes his systolic ranged from 190s to 130s, last echocardiogram February 2025 showed grade 1 diastolic dysfunction with LVEF of 65-70% * continue home medications: Irbesartan, labetalol, nifedipine, clonidine * Patient reports he has been very compliant with his clonidine but medication does have a risk of rebound HTN * monitor BP per unit protocol (6) Anemia: Qualifiers: Anemia type: due to chronic kidney disease Chronic kidney disease stage: unspecified stage Qualified Code(s): N18.9 - Chronic kidney disease, unspecified; D63.1 - Anemia in chronic kidney disease Code(s): D64.9 - Anemia, unspecified Status: Acute Assessment and Plan: Patient has history of chronic anemia secondary to CKD. Currently stable. * trend H&H * transfuse PRBCs if hemoglobin <7.0 * no current evidence of acute GI bleeding (7) Hypomagnesemia: Code(s): E83.42 - Hypomagnesemia Status: Acute Assessment and Plan: -ordered IV magnesium L Plan Code status: Full code per patient DVT prophylaxis: SCDs, subq heparin PT/OT notes: PT/OT evaluation OK for discharge home. No rehab Disposition: patient continues admission to the medical unit for acute respiratory failure with hypoxia likely secondary to influenza A. Start nebs and airway clearance treatments. Walking oxygen for home. MARIANA improving, likely related to dehydration and uncontrolled BP chronically. Nephrology consulted and following. Blood pressure above goal. PT/OT evaluation for recommendations on discharge planning needs Subjective Date/time seen: 08/27/25 07:26 Review of Systems Review of Systems: All systems reviewed & are unremarkable except as noted in HPI and below Objective Data Vital Signs Vital Signs: Vital Signs - 24 hr 08/26/25 08:00 08/26/25 08:28 08/26/25 10:18 Temperature 97.5 F L Pulse Rate 56 L 61 Respiratory Rate 18 Blood Pressure 183/57 H Pulse Oximetry 94 Oxygen Delivery Nasal Cannula Oxygen Flow Rate 2 08/26/25 10:40 08/26/25 12:00 08/26/25 15:33 Temperature 98.0 F Pulse Rate 50 L Respiratory Rate 18 Blood Pressure 145/44 H Pulse Oximetry 90 96 95 Oxygen Delivery Nasal Cannula Nasal Cannula Oxygen Flow Rate 2 2 08/26/25 16:50 08/26/25 17:24 08/26/25 19:58 Temperature 97.9 F 97.6 F Pulse Rate 52 L 55 L Respiratory Rate 16 20 Blood Pressure 141/42 H 132/48 L Pulse Oximetry 96 91 93 Oxygen Delivery Nasal Cannula Oxygen Flow Rate 1 08/26/25 20:52 08/26/25 23:25 08/27/25 03:30 Temperature 97.6 F 97.6 F Pulse Rate 56 L 50 L 50 L Respiratory Rate 18 20 Blood Pressure 134/49 L 156/46 H Pulse Oximetry 93 96 Oxygen Delivery Oxygen Flow Rate Intake/Output Intake/Output: Intake & Output 08/24/25 08/25/25 08/26/25 08/27/25 23:59 23:59 23:59 23:59 Intake Total 904.2 2150 2640 290 Output Total 1525 6765 2825 400 Balance -620.8 -325 -185 -110 Meds/Results Medications: Active Medications Generic Name Dose Route Start Last Admin Trade Name Freq PRN Reason Stop Dose Admin Acetaminophen 650 mg 08/24/25 14:13 Acetaminophen 325 Mg Tablet PO Q4H PRN Mild Pain (1-3) or Fever Aspirin 81 mg 08/25/25 09:00 08/26/25 08:24 Aspirin 81 Mg Enteric Tablet PO 81 mg DAILY CHAPARRO Administration Atorvastatin Calcium 40 mg 08/25/25 09:00 08/26/25 08:25 Atorvastatin 20 Mg Tablet PO 40 mg DAILY CHAPARRO Administration Clonidine HCl 0.2 mg 08/24/25 21:15 08/26/25 20:52 Clonidine Hcl 0.1 Mg Tablet PO 0.2 mg Q12HR CHAPARRO Administration Clonidine HCl 0.1 mg 08/25/25 16:00 08/26/25 16:41 Clonidine Hcl 0.1 Mg Tablet PO 0.1 mg DAILY@1600 CHAPARRO Administration Dextrose 12.5 gm 08/24/25 16:12 Dextrose 50% 25 Gm/50 Ml Syringe IV PUSH PRN PRN Hypoglycemia Protocol Finasteride 5 mg 08/25/25 09:00 08/26/25 08:24 Finasteride 5 Mg Tablet PO 5 mg DAILY CHAPARRO Administration Fluticasone/Umeclidinium/Vilanterol 1 puff 08/25/25 09:00 08/26/25 15:31 Fluticasone/Umeclidin/Vilanter 100-62.5-25 Mcg Ellipta INHALATION 1 puff DAILY CHAPARRO Administration Gabapentin 100 mg 08/24/25 21:10 08/26/25 16:41 Gabapentin 100 Mg Capsule PO 100 mg TID CHAPARRO Administration Glucagon 1 mg 08/24/25 16:12 Glucagon For Inj 1 Mg Vial IM PRN PRN Hypoglycemia Protocol Glucose 15 gm 08/24/25 16:12 Glucose Oral Gel 15 Gm Of Glucse In 37.5 Gm Tube PO PRN PRN Hypoglycemia Protocol Guaifenesin 1,200 mg 08/26/25 10:50 08/26/25 20:52 Guaifenesin 12 Hr 600 Mg Tabcr PO 1,200 mg Q12HR CHAPARRO Administration Heparin Sodium (Porcine) 5,000 units 08/26/25 14:00 08/26/25 20:53 Heparin Sodium 5,000 Units/Ml Vial SUB-Q 5,000 units Q8HR CHAPARRO Administration Dextrose 1,000 mls @ 100 mls/hr 08/24/25 16:12 Dextrose 5% 1,000 Ml IVPB PRN PRN Hypoglycemia Protocol Insulin Aspart 1 - 3 units 08/24/25 21:00 08/26/25 20:33 Insulin Aspart (*Bkc) 100 Units/Ml SUB-Q Not Given HS CHAPARRO Protocol Insulin Aspart 3 - 6 units 08/24/25 17:00 08/26/25 16:42 Insulin Aspart (*Bkc) 100 Units/Ml SUB-Q Not Given TIDWM CHAPARRO Protocol Irbesartan 300 mg 08/25/25 09:00 08/26/25 08:24 Irbesartan 150 Mg Tablet PO 300 mg DAILY CHAPARRO Administration Labetalol HCl 300 mg 08/24/25 21:00 08/26/25 20:52 Labetalol Hcl 100 Mg Tablet PO 300 mg Q12HR CHAPARRO Administration Lorazepam 0.5 mg 08/24/25 20:58 Lorazepam (*Crx) 0.5 Mg Tablet PO BID PRN Anxiety Nifedipine 90 mg 08/25/25 09:00 08/26/25 08:25 Nifedipine 30 Mg Tab.Er.24 PO 90 mg DAILY CHAPARRO Administration Ondansetron HCl 4 mg 08/24/25 14:13 Ondansetron Inj 4 Mg/2 Ml Vial IV PUSH Q4H PRN Nausea Oseltamivir Phosphate 30 mg 08/25/25 12:00 08/26/25 12:23 Oseltamivir Phosphate 30 Mg Capsule PO 08/29/25 12:01 30 mg Q24H CHAPARRO Administration Pantoprazole Sodium 40 mg 08/24/25 21:10 08/26/25 16:42 Pantoprazole 40 Mg Tablet PO 40 mg BID CHAPARRO Administration Polysaccharide Iron Complex 150 mg 08/25/25 09:00 08/26/25 08:27 Polysaccharide Iron Complex 150 Mg Capsule PO 150 mg DAILY CHAPARRO Administration Tamsulosin HCl 0.4 mg 08/25/25 09:00 08/26/25 08:25 Tamsulosin Hcl 0.4 Mg Capsule PO 0.4 mg DAILY CHAPARRO Administration Radiology Results: ITS Impressions Renal Ultrasound 08/24/25 13:14 IMPRESSION: 1. No hydronephrosis. Chest X-Ray 08/24/25 17:28 IMPRESSION: 1. No acute findings. Emphysema of lungs. Atherosclerotic aorta. Pulmonary Perfusion Imaging 08/25/25 13:17 IMPRESSION: 1: Low probability for pulmonary embolism. Labs Labs: Laboratory Results - last 24 hr 08/24/25 08/26/25 08/26/25 18:54 07:50 11:31 WBC RBC Hgb Hct MCV MCH MCHC RDW Plt Count MPV Sodium Potassium Chloride Carbon Dioxide Anion Gap BUN Creatinine Estim Creat Clear Calc Estimated GFR Glucose POC Capillary Glucose 107 H 117 H Calcium Phosphorus Magnesium Total Bilirubin AST ALT Alkaline Phosphatase Total Protein Albumin Urine Osmolality 328 08/26/25 08/26/25 08/27/25 16:39 20:02 05:01 WBC 8.6 RBC 4.21 L Hgb 10.6 L Hct 34.5 L MCV 81.9 MCH 25.2 L MCHC 30.7 L RDW 17.9 H Plt Count 217 MPV 10.7 H Sodium 141 Potassium 3.6 Chloride 109 H Carbon Dioxide 25 Anion Gap 7 BUN 31 H D Creatinine 1.45 H Estim Creat Clear Calc 30 Estimated GFR 46 L Glucose 108 POC Capillary Glucose 136 H 162 H Calcium 9.2 Phosphorus 2.2 L Magnesium 1.4 L Total Bilirubin 0.9 AST 28 ALT 14 Alkaline Phosphatase 74 Total Protein 6.2 L Albumin 3.4 L Urine Osmolality Quality VTE Prophylaxis VTE prophylaxis: mechanical ordered
[2025-08-27] MEDS: FLUTICASONE/UMECLIDIN/VILANTER 100-62.5-25 MCG ELLIPTA 1 PUFF INHALATION (07:58)
[2025-08-27] MEDS: MAGNESIUM SULF 1 GM/D5W 100 ML 1 GM/100 ML BAG IVPB (08:28)
[2025-08-27] MEDS: ASPIRIN 81 MG ENTERIC TABLET PO (08:35)
[2025-08-27] MEDS: ATORVASTATIN 20 MG TABLET 40 MG PO (08:35)
[2025-08-27] MEDS: FINASTERIDE 5 MG TABLET PO (08:40)
[2025-08-27] MEDS: TAMSULOSIN HCL 0.4 MG CAPSULE PO (08:40)
[2025-08-27] MEDS: LORazepam (*CRX) 0.5 MG TABLET PO (08:40)
[2025-08-27] MEDS: GABAPENTIN 100 MG CAPSULE PO ×2 (08:40→13:35)
[2025-08-27] MEDS: guaiFENesin 12 HR 600 MG TABCR 1200 MG PO (08:40)
[2025-08-27] MEDS: IRBESARTAN 150 MG TABLET 300 MG PO (08:41)
[2025-08-27] MEDS: PANTOPRAZOLE 40 MG TABLET PO (08:41)
--- NOTE | 2025-08-27 09:37 | HOMEO2EVAL ---
Evaluation was performed at [facility] Home Oxygen Evaluation RC: Home Oxygen (O2) Evaluation Start: 08/26/25 16:00 Freq: ONCE Status: Active Protocol: RPE Activity Type Activity Date Activity User E-sign Co-sign Detail Recorded Client Recorded Date Recorded By Document 08/27/25 08:45 [facility] [id number] 08/27/25 09:37 [facility] Document 08/27/25 08:50 [facility] [id number] 08/27/25 09:37 [facility] Document 08/27/25 09:10 [facility] [id number] 08/27/25 09:37 [facility] 08/27/25 08/27/25 08/27/25 08:45 08:50 09:10 Home O2 Evaluation [Oxygen] -Test Phase Resting Resting Exercise -Oxygen Delivery Room Air Nasal Cannula Nasal Cannula -Oxygen Flow Rate (L/min) 1 -Fraction of Inspired Oxygen (%) 1 [Pulse Oximetry] -Pulse Oximetry (90-100 %) 87 L 92 91 [Pulse Rate] -Pulse Rate (60-100 beats/min) 77 78 79 [Evaluation] -Activity Tolerance Good Good [Charges] -Evaluation Charges O2 Evaluation by Pulmonary
--- NOTE | 2025-08-27 09:44 | PCRCNOTE ---
HOME O2 EVAL COMPLETE. PATIENT REQUIRES 1LPM WITHREST AND ACTIVITY. RN NOTIFIED. O\HOME O2 SET UP WITH IV RESPIRATORY CARE
[2025-08-27] MEDS: LABETALOL HCL 100 MG TABLET 300 MG PO (10:13)
--- NOTE | 2025-08-27 12:25 | P.DS_ITS ---
DS: Admitting Diagnosis Discharge Date 08/27/25 Admitting Diagnosis - MARIANA - influenza A - acute respiratoruy failure with hypoxia DS: Discharge Diagnosis Discharge Diagnosis (1) Acute renal failure (ARF): Qualifiers: Acute renal failure type: unspecified Qualified Code(s): N17.9 - Acute kidney failure, unspecified Code(s): N17.9 - Acute kidney failure, unspecified Status: Acute (2) Acute respiratory failure with hypoxia: Code(s): J96.01 - Acute respiratory failure with hypoxia Status: Acute (3) Influenza A: Code(s): J10.1 - Influenza due to other identified influenza virus with other respiratory manifestations Status: Acute (4) Type 2 diabetes mellitus with other diabetic kidney complication: Code(s): E11.29 - Type 2 diabetes mellitus with other diabetic kidney complication Status: Chronic (5) Chronic hypertension: Code(s): I10 - Essential (primary) hypertension Status: Acute (6) Anemia: Qualifiers: Anemia type: due to chronic kidney disease Chronic kidney disease stage: unspecified stage Qualified Code(s): N18.9 - Chronic kidney disease, unspecified; D63.1 - Anemia in chronic kidney disease Code(s): D64.9 - Anemia, unspecified Status: Acute (7) Hypomagnesemia: Code(s): E83.42 - Hypomagnesemia Status: Acute DS: Summary Hospital Course Reason for hospitalization: - MARIANA - influenza A - acute respiratoruy failure with hypoxia Hospital Course: The patient is an 85-year-old male admitted for evaluation of labile blood pre ssure and was found to have?acute kidney injury (MARIANA) superimposed on CKD stage III, as well as?acute hypoxic respiratory failure due to influenza A. On admission, creatinine was markedly elevated to 4.05 with associated hypotension and dehydration in the setting of influenza infection. Nephrology was consulted, and the MARIANA was felt to be primarily secondary to hypotension and volume depletion. The patient was treated with intravenous fluids with close monitoring of intake and output, and chlorthalidone was held. Renal function steadily improved, with creatinine trending down to?1.45, near baseline, and IV fluids were discontinued once clinically stable. He will have a repeat BMP in 10-14 days prior to following up with nephrology. During hospitalization, the patient was noted to have hypoxia, desaturating to the low 80s on room air. Workup included chest imaging and a V/Q scan, which showed no acute pulmonary process and low probability for pulmonary embolism. Hypoxia was attributed to?influenza A infection with underlying COPD/emphysematous changes. He was treated with?oseltamivir (Tamiflu), pulmonary hygiene measures, and supplemental oxygen with gradual weaning as tolerated. A walking oxygen study demonstrated qualification for?1 L/min of oxygen at rest and with activity, which was arranged for home use prior to discharge. Patient encouraged to arranged for outpatient PFTs given smoking history. Patient recieved IV magnesium on day of discharge and was started on PO mag supplement x2 weeks. He will have follow-up labs in 10-14 days. Blood pressures improved with resumption of non-diuretic antihypertensive medications, and hypotension resolved. Diabetes management was addressed during admission; hemoglobin A1c was elevated, and once renal function stabilized, the patient was?resumed on metformin. He was counseled on the importance of outpatient follow-up with his primary care provider for improved glycemic control and ongoing chronic disease management. Physical and occupational therapy evaluated the patient and deemed him safe for discharge home. Overall, the patient showed clinical improvement and was discharged home in stable condition with appropriate follow-up and home oxygen in place. He will receive assistance from his son at home. Status at Discharge Overall status at discharge: patient is progressing back to baseline Time Spent with Patient Time attestation: Total time spent providing and/or coordinating discharge services: Time spent: Greater than 30 minutes Exam Narrative: General: NAD Eyes: EOMI ENT: neck supple Cardiovascular: Regular rate and rhythm Respiratory: Clear to auscultation, respirations even and unlabored on 1 L nasal cannula Gastrointestinal: Soft, non tender Genitourinary: no suprapubic tenderness Musculoskeletal: No edema Skin: warm, dry Neuro: Alert. Psych: Mood appropriate DS: Data Data Completed and Pending Completed studies during hospitalization: ITS Impressions Renal Ultrasound 08/24/25 13:14 IMPRESSION: 1. No hydronephrosis. Chest X-Ray 08/24/25 17:28 IMPRESSION: 1. No acute findings. Emphysema of lungs. Atherosclerotic aorta. Pulmonary Perfusion Imaging 08/25/25 13:17 IMPRESSION: 1: Low probability for pulmonary embolism. Labs on day of discharge: Labs from last 24 hours 08/27/25 08/27/25 08/27/25 11:46 07:56 05:01 WBC 8.6 RBC 4.21 L Hgb 10.6 L Hct 34.5 L MCV 81.9 MCH 25.2 L MCHC 30.7 L RDW 17.9 H Plt Count 217 MPV 10.7 H Sodium 141 Potassium 3.6 Chloride 109 H Carbon Dioxide 25 Anion Gap 7 BUN 31 H D Creatinine 1.45 H Estim Creat Clear Calc 30 Estimated GFR 46 L Glucose 108 POC Capillary Glucose 123 H 110 H Calcium 9.2 Phosphorus 2.2 L Magnesium 1.4 L Total Bilirubin 0.9 AST 28 ALT 14 Alkaline Phosphatase 74 Total Protein 6.2 L Albumin 3.4 L Urine Osmolality 08/26/25 08/26/25 08/24/25 20:02 16:39 18:54 WBC RBC Hgb Hct MCV MCH MCHC RDW Plt Count MPV Sodium Potassium Chloride Carbon Dioxide Anion Gap BUN Creatinine Estim Creat Clear Calc Estimated GFR Glucose POC Capillary Glucose 162 H 136 H Calcium Phosphorus Magnesium Total Bilirubin AST ALT Alkaline Phosphatase Total Protein Albumin Urine Osmolality 328 Discharge Plan Discharge Attending physician on discharge: Guerrero Mcbride Consulting providers: John Adams; Isa Lynch; Annetta Wei; Zoey Curtis Discharging Clinician: Zoey Curtis Anticipated Discharge Date/Time: 08/27/25 12:16 Patient Disposition: Home Activity: unlimited Diet: heart healthy Discharge Instructions: Reason for Hospitalization You were admitted for?acute kidney injury (MARIANA)?related to?low blood pressure?and?influenza A infection, as well as?acute respiratory failure due to influenza A. Your kidney function and blood pressure improved with treatment, and your breathing is stable for discharge. Medications * Continue?Tamiflu (oseltamivir)?as prescribed until the full course is completed. * Take all other home medications as instructed on your discharge medication list. * Avoid NSAIDs (such as ibuprofen or naproxen) unless specifically instructed, as these can affect kidney function. Oxygen Therapy * You qualify for?home oxygen at 1 liter per minute via nasal cannula. Call the number provided to set up home equipment. * Use oxygen as prescribed, especially with activity or as directed. * Goal oxygen saturation is 90?92% or higher. * Contact your provider if you are unable to maintain this despite oxygen use. Activity and Hydration * Resume activity as tolerated. Pace yourself and rest as needed. * Maintain good oral hydration unless you were given fluid restrictions. Blood Sugar Management * Your blood sugars and hemoglobin A1c were elevated during this admission. * Follow up with your primary care provider?for closer glucose management and medication adjustment if needed. Follow-Up Appointments * Schedule a follow-up visit with your?primary care provider and kidney doctor within 1?2 weeks. Discuss pulmonary function testing with your primary care provider. * Have your lab work rechecked in 10-14 day to recheck kidney function and magnesium level. Return to the Emergency Department or Seek Immediate Care If You Have: * Worsening shortness of breath or oxygen saturation below goal despite oxygen * Chest pain, severe weakness, dizziness, or fainting * Little or no urine output * Persistent vomiting, inability to keep fluids down, or signs of dehydration * Fever that does not improve or new/worsening symptoms * Confusion or significant change in mental status If you have questions about your medications, oxygen use, or symptoms, contact your primary care provider. Patient Instructions: Antibiotic Form Patient Language: Gambian Stand Alone Forms: General Discharge Information Follow-up/Referrals: Naveen Lott MD [Primary Care Provider, Family Practice] - 1 Week Referral Note: hospital follow-up John Adams MD [Physician, Nephrology] - Call for Appointment Referral Note: follow-up in 2 weeks. Have repeat lab work prior to this appointment Discharge Medications: New guaifenesin [Mucus Relief ER] 600 mg Tablet Extended Release 12hr 1,200 mg PO Q12HR Qty: 10 0RF oseltamivir [Tamiflu] 30 mg Capsule 30 mg PO Q24H 3 Days Qty: 3 0RF (DME) blood-glucose meter [Collaberauch Verio Flex meter] [facility] Qty: 1 0RF Rx Instructions: Starter Kit. May substitute to in-stock and/or covered by insurance meter. Use As Directed (DME) OneTouch Verio test strips Strip Qty: 1 0RF Rx Instructions: May substitute to in-stock and/or covered by insurance strips. Use As Directed (DME) lancets [OneTouch Delica Plus Lancet] 30 gauge [facility] Qty: 1 0RF Rx Instructions: May substitute to in-stock and/or covered by insurance lancets. Use As Directed magnesium 200 mg tablet 400 mg PO DAILY Qty: 20 0RF Continued aspirin [Adult Aspirin Regimen] 81 mg tablet,delayed release (DR/EC) 81 mg PO DAILY Corbinlearelis Ellipta 100-62.5-25 mcg blister with device 1 inh inhalation DAILY Patient Comments: sample provided in clinic polysaccharide iron complex 150 mg iron capsule 150 mg PO DAILY Qty: 90 3RF finasteride 5 mg tablet 5 mg PO DAILY clonidine HCl 0.1 mg tablet 0.1 mg PO USEASDIRECTD Rx Instructions: TAKE 2 TABLETS BY MOUTH EVERY MORNING , TAKE 1 TABLET IN AFTERNOON AND TAKE 2 TABLETS AT NIGHT (DME) blood-glucose meter [Accu-Chek Jaimee Plus Meter] [facility] See Rx Instructions .ROUTE .MEDSUPPLY Qty: 1 0RF Rx Instructions: Used once daily to check blood sugar (DME) Blood Glucose Test Strip See Rx Instructions .ROUTE .MEDSUPPLY Qty: 100 3RF Rx Instructions: Use once daily to check blood sugar nifedipine 90 mg tablet extended release See Rx Instructions .ROUTE .COMPLEX Qty: 90 2RF Dose Instruction: TAKE 1 TABLET BY MOUTH EVERY DAY Rx Instructions: TAKE 1 TABLET BY MOUTH EVERY DAY metformin 500 mg tablet extended release 24 hr 500 mg PO DAILY Qty: 90 2RF atorvastatin 40 mg tablet See Rx Instructions .ROUTE .COMPLEX Qty: 90 3RF Dose Instruction: TAKE 1 TABLET (40 MG) BY MOUTH DAILY Rx Instructions: TAKE 1 TABLET (40 MG) BY MOUTH DAILY irbesartan 300 mg tablet See Rx Instructions .ROUTE .COMPLEX Qty: 90 3RF Dose Instruction: TAKE 1 TABLET (300 MG) BY MOUTH DAILY Rx Instructions: TAKE 1 TABLET (300 MG) BY MOUTH DAILY gabapentin 100 mg capsule 100 mg PO TID Qty: 270 2RF tamsulosin 0.4 mg capsule 0.4 mg PO DAILY Qty: 90 2RF pantoprazole 40 mg tablet,delayed release (DR/EC) See Rx Instructions .ROUTE .COMPLEX Qty: 180 2RF Dose Instruction: TAKE 1 TABLET BY MOUTH TWICE A DAY Rx Instructions: TAKE 1 TABLET BY MOUTH TWICE A DAY labetalol 300 mg tablet 300 mg PO Q12H Qty: 60 5RF lorazepam 0.5 mg tablet 0.5 mg PO BID PRN (Reason: anxiety) Qty: 45 0RF Held chlorthalidone 25 mg tablet See Rx Instructions .ROUTE .COMPLEX Qty: 90 3RF Hold Instructions: Resume on 09/10/25. HOLD until follow-up with Dr. Bryan Dose Instruction: TAKE 1 TABLET BY MOUTH EVERY DAY Patient Comments: takes every other day Rx Instructions: TAKE 1 TABLET BY MOUTH EVERY DAY Discontinued labetalol 200 mg tablet 200 mg PO Q12H Other Ambulatory Orders: Basic Metabolic Panel (Routine) Timeframe: 10 Day Location: Determined by Patient Ordered By: Zoey Curtis Magnesium (Routine) Timeframe: 10 Day Location: Determined by Patient Ordered By: Zoey Curtis Date of admission: 08/24/25 14:14 Primary Care Provider: Naveen Lott Admitting Provider: Kandy Gardner Attending physician on admission: Kandy Gardner Condition: Stable
[2025-08-27] MEDS: OSELTAMIVIR PHOSPHATE 30 MG CAPSULE PO (13:35)
[2025-08-27 21:07] LABS: Osmolality, Serum 306 mOsmol/kg (280-301)
== END 2025-08-27 14:55 | disposition home or self-care (01) | DRG 682 ==
LOC: ANHED 14:13 → ANH2MED 15:45
PROVIDERS: Internal Medicine Nephrology; Nurse Practitioner Family; Student in an Organized Health Care Education/Training Program; Admitting Provider Family Medicine; Emergency Provider Family Medicine; PCP Family Medicine; Visit Provider Physician Assistant
DX: N17.9 Acute kidney failure, unspecified (principal); J96.01 Acute respiratory failure with hypoxia; J10.1 Influenza due to other identified influenza virus with other respiratory manifestations; D63.1 Anemia in chronic kidney disease; E86.0 Dehydration; E83.42 Hypomagnesemia; N18.30 Chronic kidney disease, stage 3 unspecified; E11.22 Type 2 diabetes mellitus with diabetic chronic kidney disease; I12.9 Hypertensive chronic kidney disease with stage 1 through stage 4 chronic kidney disease, or unspecified chronic kidney disease; I70.1 Atherosclerosis of renal artery; I73.9 Peripheral vascular disease, unspecified; I25.10 Atherosclerotic heart disease of native coronary artery without angina pectoris; E11.42 Type 2 diabetes mellitus with diabetic polyneuropathy; E78.2 Mixed hyperlipidemia; I65.29 Occlusion and stenosis of unspecified carotid artery; K21.9 Gastro-esophageal reflux disease without esophagitis; Z20.822 Contact with and (suspected) exposure to COVID-19; Z90.49 Acquired absence of other specified parts of digestive tract; Z95.5 Presence of coronary angioplasty implant and graft; Z87.891 Personal history of nicotine dependence
CPT/HCPCS: 36415; 71046; 76770; 78582; 80048; 80053; 81003; 82533; 82550; 82570; 82948; 83036; 83605; 83735; 83930; 83935; 84100; 84156; 84300; 84484; 84540; 85025; 85027; 86140; 87637; 93005; 94618; 94640; 94667; 97161; 97165; 99285; A9270; A9540; A9558; J1644; J1815; J3475; J7030; J7040